=== PATIENT | female | born 1940 | race Caucasian/White ===

== ENCOUNTER → 2022-04-14 | Outpatient (CLI) | payer MEDICARE, BC, SELFPAY ==
[2022-04-14 14:56] LABS: Absolute Lymphocyte Count 1.03 X10^3/uL (0.83-4.51); Absolute Neutrophil Count 3.1 X10^3/uL (2.0-7.7); Basophil# 0.05 X10^3/uL; Eosinophil# 0.27 X10^3/uL; Eosinophils% 5.2 % (0-5); Hematocrit 45.4 % (37-47); Hemoglobin 14.3 g/dL (12.0-15.0); Lymphocyte # 1.03 X10^3/ul (0.83-4.51); Mean Corp Hgb Conc 31.5 g/dL (32-36); Mean Corpuscular Volume 92.1 fL (81-99); Mean Platelet Vol. 9.4 fl (6.2-12.0); Monocyte# 0.68 X10^3/uL; Monocyte% 13.2 % (0-10); NRBC Flagged by Analyzer 0 % (0-5); Neutrophil # 3.11 X10^3/uL (2.7-7.7); Neutrophil % 60.2 % (47-70); Platelet Count 244 K/mm3 (150-450); RBC Distribution Width CV 18.3 % (11.6-14.6); RBC Distribution Width SD 61.5 fl (35.1-43.9); Red Blood Count 4.93 M/mm3 (4.2-5.4); White Blood Count 5.2 K/mm3 (4.4-11.0)
[2022-04-14 15:18] LABS: AST(SGOT) 13 U/L (15-37); Alanine Aminotransfer ALT/SGPT 17 U/L (13-56); Albumin, Serum 3.6 g/dL (3.2-5.0); Alkaline Phosphatase 89 U/L (45-117); Anion Gap 4 (5-15); BUN 16 mg/dL (7-18); BUN/Creat Ratio 15.5 RATIO (10-20); Calcium,Total 9.2 mg/dL (8.5-10.1); Chloride 110 mmol/L (98-107); Cholesterol 253 mg/dL (200); Creatinine, Serum 1.03 mg/dL (0.55-1.02); EST Glomerular Filtration Rate 55 mL/min (>60); Est Glom Filt Rate - Afr Amer 66 mL/min (>60); Globulin 3.5 g/dL (2.2-4.2); Glucose 102 mg/dL (74-106); High Density Lipoprotein 57 mg/dL; Potassium 4.3 mmol/L (3.5-5.1); Protein, Total 7.1 g/dL (6.4-8.2); Sodium Level 140 mmol/L (136-145); Triglycerides 245 mg/dL; Very Low Density Lipoprotein 49 mg/dL (5-40)
== END | disposition home or self-care (01) ==
LOC: BIMLAB 14:00
PROVIDERS: PCP Internal Medicine; Referring Provider Internal Medicine; Visit Provider Internal Medicine
DX: I10 Essential (primary) hypertension (principal)
CPT/HCPCS: 36415; 80053; 80061; 85025

== ENCOUNTER 2022-08-17 09:12 | Inpatient (IN) | payer MEDICARE, BC, SELFPAY ==
[2022-08-17] VITALS (11 sets, daily range): BP systolic 106–147; BP diastolic 54–79; PULSE 69–92; RESP 16–18; TEMP 36.4–37.2; O2SAT 90–97; BMI 36.8
--- NOTE | 2022-08-17 09:31 | EDS_ITS ---
HPI HPI - GI History of Present Illness Chief Complaint: Abd Pain Informant: patient Abdominal Pain/Flank Pain Onset: Yesterday Context: Sudden Onset Timing: Intermittent Quality: Cramping Location: Epigastric and LUQ Worsened by: Nothing Relieved by: Nothing Nausea/Vomiting/Emesis GI Symptom: Positive for Nausea and Vomiting Quality: Positive for Nonbilious; Negative for Blood streaks, Coffee ground or Hematemesis Diarrhea/Melena/Hematochezia GI Symptom: Negative for Diarrhea, Melena or Hematochezia Associated Symptoms Associated Symptoms: Negative for Dysuria, Frequency or Hematuria Narrative Narrative: Patient presents with abdominal pain that began last night. Patient states it began rather suddenly. Patient states that it does come and go. Patient describes it as cramping. Patient states it is mostly over the epigastric and left upper quadrant areas. Patient states nothing makes it better nothing makes it worse. Patient admits to some nausea and vomiting. Patient states her emesis was just stomach contents. Patient denies any hematemesis or coffee- ground emesis. Patient denies any diarrhea, melena, or hematochezia. Patient denies any dysuria, hematuria, or frequency. [facility] Medical History Bilateral lower extremity edema Debility Health care maintenance History of aneurysm History of COVID-19 History of pneumonia History of skin cancer History of uterine cancer Hypertension Home Medications Handicap Placard #1 ea 04/14/22 [Rx Last Taken Unknown] amlodipine 5 mg tablet 5 mg PO DAILY blood pressure 08/17/22 [History Last Taken 08/16/22] ascorbic acid (vitamin C) 500 mg tablet (Vitamin C) 500 mg PO QODAY supplement 08/17/22 [History Last Taken 08/16/22] multivitamin 1 tab PO DAILY health maintenance 08/17/22 [History Last Taken 08/16/22] zinc sulfate 50 mg zinc (220 mg) tablet 50 mg PO QODAY supplement 08/17/22 [History Last Taken 08/16/22] Allergy/AdvReac Type Severity Reaction Status Date / Time rosuvastatin [From Crestor] Allergy Severe stomach Verified 08/17/22 09:13 pains shellfish derived Allergy Severe MOUTH SORES Verified 08/17/22 09:13 sulfamethoxazole Allergy Unknown unknown Verified 08/17/22 09:13 [From Bactrim] trimethoprim [From Bactrim] Allergy Unknown unknown Verified 08/17/22 09:13 Family History Son Alcoholism Grandmother No problems noted. Mother Heart disease Hypertension CVA (cerebral vascular accident) Father Cancer throat Surgical History History of hysterectomy Hx of endovascular stent graft for abdominal aortic aneurysm Social History Smoking Status: Never smoker alcohol intake: never substance use type: does not use what type of physical activity do you participate in: walking and aerobics ROS ROS ED Constitutional Constitutional ED: Denies chills or fever(s) Eyes Eyes: Denies blurry vision or change in vision ENT ENT ED: Denies rhinorrhea or sore throat Cardiovascular Cardiovascular: Denies chest pain or palpitations Respiratory/Chest Respiratory/Chest: Denies cough or dyspnea Gastrointestinal Gastrointestinal: Reports abdominal pain, nausea and vomiting; Denies diarrhea or melena Genitourinary Genitourinary ED: Denies dysuria or hematuria Musculoskeletal Musculoskeletal: Reports back pain; Denies neck pain Integumentary Reports rash; Denies abscess Neurologic Neurologic: Denies headache(s) or weakness Allergic/Immunologic Allergic/Immunologic ED: Denies mouth swelling or urticaria EXAM Physical Exam Const Vital Signs: 08/17/22 09:14 08/17/22 11:25 08/17/22 15:53 Temperature 97.9 F 97.8 F Temperature Source Temporal Temporal Pulse Rate 78 72 79 Respiratory Rate 17 16 16 Blood Pressure 125/65 H 147/60 H 147/69 H Blood Pressure Mean 85 89 95 Blood Pressure Source Pulse Ox 92 91 90 Oxygen Delivery Method Room Air Room Air Room Air 08/17/22 15:53 08/17/22 15:55 Temperature 97.8 F 97.8 F Temperature Source Temporal Temporal Pulse Rate 69 69 Respiratory Rate 16 16 Blood Pressure 147/69 H 147/69 H Blood Pressure Mean 95 95 Blood Pressure Source Monitor Pulse Ox 90 90 Oxygen Delivery Method Room Air Room Air Positive well nourished, well developed and obese General Appearance ED: well developed and NAD Nutritional Appearance: obese HEENT Reports moist mucous membranes Neck supple and no JVD Resp normal respiratory effort and clear to auscultation bilaterally Cardio regular rate, regular rhythm and no murmurs GI normal to inspection, nondistended, normoactive bowel sounds Palpation: soft and tender epigastric and LUQ; Negative for guarding or rebound tenderness present Extremity normal to inspection General Extremety ED: Negative for edema or tenderness General Extremity: Negative for edema Neuro oriented x3, CN's II-XII intact bilaterally and no sensory deficits noted Sensorium / Orientation: alert Motor Exam: strength 5/5 throughout Psych mental status grossly normal Skin no rashes or lesions noted MDM MDM MDM Narrative Medical decision making narrative: Patient was given IV fluids, morphine, and Zofran. CBC was within normal limits. Comprehensive metabolic profile showed a slightly elevated creatinine of 1.10 and a BUN of 20. Alkaline phosphatase was slightly elevated to 31. Lipase was normal. Urinalysis shows a leukocyte esterases of 100 with 5-10 white blood cells but 10-25 squamous epithelial cells. There is 4+ bacteria. This is most likely from contamination. CT scan of the abdomen pelvis was obtained. There is a ventral hernia containing colon and small bowel. There is evidence of early bowel obstruction. There are multiple gallstones noted. This was interpreted by the radiologist and reviewed by myself. I attempted to reduce the ventral hernia. It felt as though some of the bowel was reduced. I went back into reevaluate the patient later and she was still having some pain and there is still hernia noted. Case was discussed with Dr. Enciso. He was in to evaluate the patient and will take the patient to the operating room. He recommended obtaining an EKG and giving the patient a dose of Zosyn. These were ordered. EKG shows a normal sinus rhythm with a rate of 82. [place] interval, QRS interval, and QTc intervals are within normal limits. There is borderline left axis deviation at -20. There are no acute ST or T wave changes noted. Patient understands and is agreeable with the plan. All questions were answered. Lab Data Attestation: I reviewed the patient's lab results. Labs: Laboratory Results - last 24 hr 08/17/22 08/17/22 08/17/22 09:45 09:45 10:30 WBC 9.3 RBC 4.90 Hgb 15.2 H Hct 46.6 MCV 95.1 MCH 31.0 MCHC 32.6 RDW Std Deviation 58.2 H RDW Coeff of Toribio 16.6 H Plt Count 213 MPV 8.9 Immature Gran % (Auto) 0.500 Neut % (Auto) 79.8 H Lymph % (Auto) 8.9 L [place] % (Auto) 8.7 Eos % (Auto) 1.8 Baso % (Auto) 0.3 Absolute Neuts (auto) 7.4 Absolute Lymphs (auto) 0.83 Nucleated RBC % 0 Sodium 141 Potassium 4.4 Chloride 108 H Carbon Dioxide 28.0 Anion Gap 5 BUN 20 H Creatinine 1.10 H Estim Creat Clear Calc 35.22 Est GFR (MDRD) Af Amer 61 Est GFR (MDRD) Non-Af 51 L BUN/Creatinine Ratio 18.2 Glucose 118 H Calcium 9.5 Total Bilirubin 0.80 AST 25 ALT 34 Alkaline Phosphatase 231 H Total Protein 7.1 Albumin 3.2 Globulin 3.9 Albumin/Globulin Ratio 0.8 L Lipase 136 Urine Color Yellow Urine Clarity Sl. Cloudy Urine pH 7.0 Ur Specific [place] 1.010 Urine Protein Negative Urine Glucose (UA) Normal Urine Ketones Negative Urine Occult Blood Negative Urine Nitrite Negative Urine Bilirubin Negative Urine Urobilinogen 1 H Ur Leukocyte Esterase 100 H Urine RBC 0 SEEN Urine WBC 5-10 SEEN Ur Squamous Epith Cells 10-25 SEEN Urine Bacteria 4+ Urine Mucus 0 SEEN Radiography Diagnostic Testing: Clinical Impression(s) from Imaging Studies Abdomen/Pelvis CT 08/17/22 11:35 IMPRESSION: Large anterior ventral hernia containing colon as well as small bowel loops. There is evidence of small bowel dilatation proximally to the level of the hernia in keeping with a small bowel obstruction. Multiple gallstones. Electronically Signed: Damian Knight MD at 12:30 EDT , EKG Initial EKG: Attestation: I personally reviewed and interpreted this EKG as follows: Interpretation: Sinus Rhythm (82) and No Acute Injury Pattern Prior EKG tracings: not available for review Prior: No Prior Critical Care Time Critical Care Time: Yes Critical care time (excluding procedures): 30-74 minutes (33), Including time spent:, Discussing w/Patient &/or Family/Tallow Maker, Discussing w/Consultants, Arranging Admission or Transfer and Performing Direct Patient Care at Bedside Discharge Plan Disposition Disposition: Acute Care Hospital [facility] Discharge Date/Time: 08/17/22 16:00
[2022-08-17] MEDS: Ondansetron 4 MG/2 ML Vial IV (09:47)
[2022-08-17] MEDS: 0.9% Normal Saline 1,000 ML 1000 ML IV (09:47)
[2022-08-17] MEDS: Morphine 4 MG/ML Syringe IV (09:47)
[2022-08-17 09:59] LABS: Absolute Lymphocyte Count 0.83 X10^3/uL (0.83-4.51); Absolute Neutrophil Count 7.4 X10^3/uL (2.0-7.7); Basophil# 0.03 X10^3/uL; Basophil% 0.3 % (0-1); Eosinophil# 0.17 X10^3/uL; Eosinophils% 1.8 % (0-5); Hematocrit 46.6 % (37-47); Hemoglobin 15.2 g/dL (12.0-15.0); Lymphocyte # 0.83 X10^3/ul (0.83-4.51); Lymphocyte % 8.9 % (19-41); Mean Corp Hgb Conc 32.6 g/dL (32-36); Mean Corpuscular Volume 95.1 fL (81-99); Mean Platelet Vol. 8.9 fl (6.2-12.0); Monocyte# 0.81 X10^3/uL; Monocyte% 8.7 % (0-10); NRBC Flagged by Analyzer 0 % (0-5); Neutrophil # 7.43 X10^3/uL (2.7-7.7); Neutrophil % 79.8 % (47-70); Platelet Count 213 K/mm3 (150-450); RBC Distribution Width CV 16.6 % (11.6-14.6); RBC Distribution Width SD 58.2 fl (35.1-43.9); White Blood Count 9.3 K/mm3 (4.4-11.0)
[2022-08-17 10:23] LABS: ALB/GLOB Ratio 0.8 RATIO (0.9-2.4); AST(SGOT) 25 U/L (15-37); Alanine Aminotransfer ALT/SGPT 34 U/L (13-56); Albumin, Serum 3.2 g/dL (3.2-5.0); Alkaline Phosphatase 231 U/L (45-117); Anion Gap 5 (5-15); BUN 20 mg/dL (7-18); BUN/Creat Ratio 18.2 RATIO (10-20); Calcium,Total 9.5 mg/dL (8.5-10.1); Chloride 108 mmol/L (98-107); EST Glomerular Filtration Rate 51 mL/min (>60); Est Glom Filt Rate - Afr Amer 61 mL/min (>60); Estimated Creatinine Clearance 35.22 ml/min; Globulin 3.9 g/dL (2.2-4.2); Glucose 118 mg/dL (74-106); Lipase 136 U/L (73-393); Potassium 4.4 mmol/L (3.5-5.1); Protein, Total 7.1 g/dL (6.4-8.2); Sodium Level 141 mmol/L (136-145)
[2022-08-17 10:37] LABS: Mucous, Urine 0 SEEN /hpf (<or=2+); Red Blood Cells-Urine 0 SEEN /hpf (0-5)
[2022-08-17 10:53] LABS: Color, Urine Yellow (Yellow); Glucose, Dipstick Normal (Normal); Ketone-Dipstick Negative (Negative); Leukocyte Esterase-Dipstick 100 /ul (Negative); Nitrite-Dipstick Negative (Negative); Occult Blood-Urine Negative /ul (Negative); Protein-Dipstick Negative (Negative); Urine Bilirubin Dipstick Negative (Negative); Urine Clarity Sl. Cloudy (Clear); Urine Urobilinogen 1 mg/dl (Normal)
[2022-08-17 11:03] LABS: White Blood Cells 5-10 SEEN /hpf (0-5)
[2022-08-17 11:04] LABS: Bacteria 4+ /hpf (None Seen); Squamous Epithelial Cells - UA 10-25 SEEN /hpf (5-10)
--- NOTE | 2022-08-17 11:35 | CT_ITS ---
STUDY: CT ABDOMEN AND PELVIS WITH CONTRAST REASON FOR EXAM: Female, 82 years old. Nausea and vomiting. History of uterine cancer. Abdominal pain -- IV PO Contrast RADIATION DOSAGE (If Supplied By Facility): CTDIvol = ( 15.59 ) mGy, DLP = ( 1091.59 ) mGycm TECHNIQUE: Transaxial images were obtained from the dome of the diaphragm to the symphysis pubis without oral contrast. Oral and amp; IV Gastrografin and amp; 100mL Isovue-300 was administered. Sagittal and coronal images were reconstructed. Individualized dose optimization techniques were used for this CT. COMPARISON: None. FINDINGS: There are increased linear markings at the lung bases with areas of confluence in the right middle lobe and lingular segment of the left upper lobe. This may represent atelectasis superimposed on scarring. The visualized portions of the heart are within normal limits. Normal liver. There are multiple gallstones. There are multiple benign calcified granulomata of the spleen. Normal pancreas. Normal bilateral adrenal glands. There are small bilateral renal cysts. There is a small hiatal hernia. There is evidence of a dilatation of the jejunal small bowel loops proximal to the large anterior ventral hernia. Small bowel obstruction to the level of the hernia should be ruled out. There are multiple colonic diverticula consistent with diverticulosis. There is non-visualization of the appendix. There is diffuse atherosclerotic calcification of the abdominal aorta. Endoluminal stent graft is seen in the abdominal aorta just distal to the renal arteries and proximal portions of both common iliac arteries. The [place] abdominal aorta has a transverse dimension of 5.6 cm. Normal inferior vena cava. Normal retroperitoneum. Normal urinary bladder. Surgical clips are seen in the right and left groins most likely secondary to prior vascular surgery. There is absence of the uterus consistent with a prior hysterectomy. There is a large ventral hernia containing nondilated portion of the transverse colon and small bowel loops. The neck of the hernia measures 4.3 cm x 3.4 cm.. There are diffuse degenerative changes of the visualized lumbar spine. Increased lordosis. CT/Abdomen/Pelvis WITH Contrast IMPRESSION: Large anterior ventral hernia containing colon as well as small bowel loops. There is evidence of small bowel dilatation proximally to the level of the hernia in keeping with a small bowel obstruction. Multiple gallstones. Electronically Signed: Damian Knight MD at 12:30 EDT ,
--- NOTE | 2022-08-17 15:14 | EKG12_ITS ---
Test Reason : PRE-OP Blood Pressure : / mmHG Vent. Rate : 082 BPM Atrial Rate : 082 BPM P-R Int : 158 ms QRS Dur : 094 ms QT Int : 396 ms P-R-T Axes : 052 -20 064 degrees QTc Int : 462 ms Normal sinus rhythm Low voltage QRS Borderline ECG Confirmed by ELENITA SHELTON, DAVE ([id number]), editorial clerk EMELINA CORREA ([id number]) on 08/18/2022 9:14:30 AM Referred By: MARBIN Confirmed By:DAVE KWONG MD
--- NOTE | 2022-08-17 15:19 | EX.PCM.CON.S ---
Assessment & Plan Assessment/Plan (1) Incarcerated incisional hernia: PLAN: My plan is to take her to surgery and repair her incarcerated incisional hernia. It is unlikely that I will be able to put mesh in due to translocation of bacteria I am hoping that we will not have to do any bowel resection. Patient understands that there is a better than 50% chance that this hernia could recur. I have counseled the patient as to the risks of the procedure, including but not limited to: infection, bleeding, injury to any blood vessels/nerves, injury to any bowel/bladder, injury to any intraabdominal organs such as the liver/spleen, perforation of the GI tract, intraabdominal abscess/bleeding, incisional hernias, injury to the common bile duct/biliary ducts, injury to the spermatic cord/vessels/testicles, recurrence of hernia(s), complications of anesthesia, etc. The patient verbalizes understanding. I have spoke with her and her daughter and reviewed the risk and benefits. HPI Consult Data Date of Consult: 08/17/22 HPI Narrative HPI Narrative: ELA JOHNSON, is a 82 F who presents with abdominal pain that began last night.? Patient states it began rather suddenly.? Patient states that it does come and go.? Patient describes it as cramping.? Patient states it is mostly over the epigastric and left upper quadrant areas.? Patient states nothing makes it better nothing makes it worse.? Patient admits to some nausea and vomiting.? Patient states her emesis was just stomach contents.? Patient denies any hematemesis or coffee-ground emesis.? Patient denies any diarrhea, melena, or hematochezia.? Patient denies any dysuria, hematuria, or frequency. CT scan : Large anterior ventral hernia containing colon as well as small bowel loops.? There is evidence of? small bowel dilatation proximally to the level of the hernia in keeping with a small bowel obstruction. Multiple gallstones. [facility] Medical History Bilateral lower extremity edema Debility Health care maintenance History of aneurysm History of COVID-19 History of pneumonia History of skin cancer History of uterine cancer Hypertension Home Medications Handicap Placard #1 ea 04/14/22 [Rx Last Taken Unknown] amlodipine 5 mg tablet 5 mg PO DAILY blood pressure 08/17/22 [History Last Taken 08/16/22] ascorbic acid (vitamin C) 500 mg tablet (Vitamin C) 500 mg PO QODAY supplement 08/17/22 [History Last Taken 08/16/22] multivitamin 1 tab PO DAILY health maintenance 08/17/22 [History Last Taken 08/16/22] zinc sulfate 50 mg zinc (220 mg) tablet 50 mg PO QODAY supplement 08/17/22 [History Last Taken 08/16/22] Allergy/AdvReac Type Severity Reaction Status Date / Time rosuvastatin [From Crestor] Allergy Severe stomach Verified 08/17/22 09:13 pains shellfish derived Allergy Severe MOUTH SORES Verified 08/17/22 09:13 sulfamethoxazole Allergy Unknown unknown Verified 08/17/22 09:13 [From Bactrim] trimethoprim [From Bactrim] Allergy Unknown unknown Verified 08/17/22 09:13 Family History Son Alcoholism Grandmother No problems noted. Mother Heart disease Hypertension CVA (cerebral vascular accident) Father Cancer throat Surgical History History of hysterectomy Hx of endovascular stent graft for abdominal aortic aneurysm Social History Smoking Status: Never smoker alcohol intake: never substance use type: does not use what type of physical activity do you participate in: walking and aerobics ROS Constitutional Constitutional: Denies chills or fever(s) Eyes Eyes: Denies change in vision ENT HEENT: Denies abnormal hearing Cardiovascular Cardiovascular: Denies chest pain Respiratory/Chest Respiratory/Chest: Denies cough, dyspnea or productive cough Gastrointestinal Gastrointestinal: Reports abdominal pain, nausea and vomiting; Denies coffee ground emesis or diarrhea Genitourinary Genitourinary: Denies change in urinary stream Musculoskeletal Musculoskeletal: Reports back pain Physical Exam Const alert and oriented x3 Nutritional Appearance: obese HEENT normocephalic and head/scalp atraumatic Eyes PERRL and EOMs intact bilaterally Resp clear to auscultation bilaterally Cardio Rate: regular rate Rhythm: regular rhythm GI soft to palpation Auscultation: hypoactive bowel sounds Palpation: tender other (Along her incarcerated incisional hernia) Lab / Micro Data Result Diagrams: 08/17/22 09:45 08/17/22 09:45 Labs: Laboratory Results - last 24 hr 08/17/22 09:45: WBC 9.3, RBC 4.90, Hgb 15.2 H, Hct 46.6, MCV 95.1, MCH 31.0, MCHC 32.6, RDW Std Deviation 58.2 H, RDW Coeff of Toribio 16.6 H, Plt Count 213, MPV 8.9, Immature Gran % (Auto) 0.500, Neut % (Auto) 79.8 H, Lymph % (Auto) 8.9 L, [place] % (Auto) 8.7, Eos % (Auto) 1.8, Baso % (Auto) 0.3, Absolute Neuts (auto) 7.4, Absolute Lymphs (auto) 0.83, Nucleated RBC % 0 08/17/22 09:45: Sodium 141, Potassium 4.4, Chloride 108 H, Carbon Dioxide 28.0, Anion Gap 5, BUN 20 H, Creatinine 1.10 H, Estim Creat Clear Calc 35.22, Est GFR (MDRD) Af Amer 61, Est GFR (MDRD) Non-Af 51 L, BUN/Creatinine Ratio 18.2, Glucose 118 H, Calcium 9.5, Total Bilirubin 0.80, AST 25, ALT 34, Alkaline Phosphatase 231 H, Total Protein 7.1, Albumin 3.2, Globulin 3.9, Albumin/Globulin Ratio 0.8 L, Lipase 136 08/17/22 10:30: Urine Color Yellow, Urine Clarity Sl. Cloudy, Urine pH 7.0, Ur Specific [place] 1.010, Urine Protein Negative, Urine Glucose (UA) Normal, Urine Ketones Negative, Urine Occult Blood Negative, Urine Nitrite Negative, Urine Bilirubin Negative, Urine Urobilinogen 1 H, Ur Leukocyte Esterase 100 H, Urine RBC 0 SEEN, Urine WBC 5-10 SEEN, Ur Squamous Epith Cells 10-25 SEEN, Urine Bacteria 4+, Urine Mucus 0 SEEN Radiology Impression Abdomen/Pelvis CT 08/17/22 11:35 IMPRESSION: Large anterior ventral hernia containing colon as well as small bowel loops. There is evidence of small bowel dilatation proximally to the level of the hernia in keeping with a small bowel obstruction. Multiple gallstones. Electronically Signed: Damian Knight MD at 12:30 EDT ,
--- NOTE | 2022-08-17 15:36 | NURSING ---
NO OLD EKGS
--- NOTE | 2022-08-17 15:39 | NURSING ---
SURGERY JOSEPH INCARCERATED VENTRAL HERNIA, SBO
--- NOTE | 2022-08-17 16:00 | ED.RN ---
Report given to AC nurse, Malcolm RN taking pt. down to PACU.
--- NOTE | 2022-08-17 16:15 | HERN_PTH ---
PATIENT: ELA JOHNSON LOC: MS3 U#:[id number] AGE/SX: 82/F ROOM: MS321 RE08/17/[address]: Dr. Mendez Enciso MD : [id number] BED: 1 DIS: 08/24/2022 SPEC #: [id number] RECD: 08/18/22 14:54 STATUS: TAMAR TSANG #: [id number] MANDA: 08/17/22 16:[address]: Mendez Enciso DEPT: SURGICAL PATHOLOGY RECD BY: Danii Saunders ENTERED: 08/19/22 09:19 SP TYPE: Hernia OTHR DR: Dr. Mio Juarez MD Tissues: HERNIA Procedures: Surgery Specimen Level II HEADER OPERATION: Incarcerated incisional hernia repair PRE-OP DIAGNOSIS: Incarcerated incisional hernia TISSUE SUBMITTED: Hernia sac MICROSCOPIC DIAGNOSIS Hernia sac: A piece of fibroadipose and fibroconnective tissue consistent with hernia sac. SJ:jagjit 08/20/2022 MICROSCOPIC DESCRIPTION Slides are reviewed. GROSS DESCRIPTION Received in fixative is one container labeled with the patient's name and designated hernia sac. The specimen consists of an irregular piece of soft tissue measuring 8.5 x 3 x 0.5 cm. No mass lesion is identified. Manager Of Maintenance sections are submitted in one cassette. / CINDY:jagjit 08/19/2022 TC:5 CPT: 49700
[2022-08-17] MEDS: BUPIVACAINE LIPOSOME/PF 20 ML VIAL OPERA.SITE (18:50)
[2022-08-17] MEDS: 0.9% Normal Saline (Pres. free 10 ML Vial (18:50)
[2022-08-17] MEDS: Lactated Ringers 1,000 ML 15 ML IV (19:45)
--- NOTE | 2022-08-17 19:46 | OP.PCM_ITS ---
Problems Associated Problem List Diagnoses (1) Incarcerated incisional hernia: Report of Operation Date of Procedure: 08/17/22 Pre-Operative Diagnosis: Incarcerated incisional hernia Post-Operative Diagnosis: Same Surgery/Procedure Performed:: Reduction and repair of incarcerated incisional hernia Surgeon: Mendez Enciso customer operations specialist: Jia Ventura Type of Anesthesia: General Anesthesiologist: Lawrence Rose Drains: 15 round Jamil-Hernandez Estimated Blood Loss (mL): 50 cc Description of Procedure: Patient was supine position on the OR table under excellent general anesthetic a Villalta catheter was placed abdomen was sterilely prepped and draped in the usual fashion. I opened her previous midline incision she had a rather large incisional hernia originating at the umbilicus and extending laterally. In addition to that superior to the umbilicus she had another incisional hernia. I dissected around the hernia sac. Opened it bowel was viable the fluid looks serous it did not look turbid but I could not help think that there was still s ome possibly translocation of bacteria.. I thought the best thing to do since he had viable bowel was just connect the 2 hernias and reduce the intestines back into the abdominal cavity which was easily done. I circumferentially dissected around the fascia. Any bleeding was controlled with electrocautery. Since we do not have biological mesh I was forced to bring this wound together it did come together but it was under some slight bit of tension in the central part of it. The fascia was brought together with interrupted #1 Nurolon's. I placed a 15 round Jamil-Hernandez drain into the cavity that was left behind from the hernia. This was sutured in place with a 3-0 nylon. I injected Exparel along the fascial edges. The wound was then closed in layers deep dermal layer of 3-0 Vicryl's interrupted then a running 4-0 Monocryl. Patient tolerated the procedure well. Admit VTE Documentation VTE Present on Admission: No VTE Mechan Device Prophylaxis: SCD's VTE Pharm Prophylaxis ordered?: No Reason prophylaxis not ordered:: Treatment Not Indicated
[2022-08-17] MEDS: 0.9% Normal Saline 1,000 ML 75 ML IV (21:59)
[2022-08-18] VITALS (10 sets, daily range): BP systolic 103–119; BP diastolic 53–65; PULSE 66–81; RESP 16–18; TEMP 36.4–37.4; O2SAT 93–96
[2022-08-18] MEDS: Nystatin Ointment 1 APPLIC TOPICAL ×3 (05:21→21:15)
[2022-08-18] MEDS: oxyCODONE 5 MG Tablet PO (05:22)
[2022-08-18 05:46] LABS: Absolute Lymphocyte Count 0.67 X10^3/uL (0.83-4.51); Absolute Neutrophil Count 5.7 X10^3/uL (2.0-7.7); Basophil# 0.02 X10^3/uL; Basophil% 0.3 % (0-1); Eosinophil# 0.09 X10^3/uL; Eosinophils% 1.2 % (0-5); Hematocrit 43.1 % (37-47); Hemoglobin 13.5 g/dL (12.0-15.0); Lymphocyte # 0.67 X10^3/ul (0.83-4.51); Lymphocyte % 9.3 % (19-41); Mean Corp Hgb Conc 31.3 g/dL (32-36); Mean Corpuscular Hgb 30.2 pg (27.0-32.0); Mean Corpuscular Volume 96.4 fL (81-99); Mean Platelet Vol. 10.5 fl (6.2-12.0); Monocyte# 0.68 X10^3/uL; Monocyte% 9.4 % (0-10); NRBC Flagged by Analyzer 0 % (0-5); Neutrophil # 5.73 X10^3/uL (2.7-7.7); Neutrophil % 79.5 % (47-70); POSITIVE COUNT YES; Platelet Count 148 K/mm3 (150-450); RBC Distribution Width CV 16.8 % (11.6-14.6); RBC Distribution Width SD 59.7 fl (35.1-43.9); Red Blood Count 4.47 M/mm3 (4.2-5.4); White Blood Count 7.2 K/mm3 (4.4-11.0)
[2022-08-18 06:10] LABS: Anion Gap 5 (5-15); BUN 13 mg/dL (7-18); BUN/Creat Ratio 13.1 RATIO (10-20); Calcium,Total 8.3 mg/dL (8.5-10.1); Chloride 112 mmol/L (98-107); Creatinine, Serum 0.99 mg/dL (0.55-1.02); EST Glomerular Filtration Rate 57 mL/min (>60); Est Glom Filt Rate - Afr Amer 69 mL/min (>60); Estimated Creatinine Clearance 39.14 ml/min; Glucose 102 mg/dL (74-106); Sodium Level 142 mmol/L (136-145)
[2022-08-18 06:13] LABS: Differential Indicated SCAN CRITERIA MET
[2022-08-18 06:53] LABS: Differential Comment SCANNED
[2022-08-18 06:54] LABS: Platelet Estimate ADEQUATE (ADEQ)
[2022-08-18] MEDS: Docusate Sodium 100 MG Capsule PO (08:45)
[2022-08-18] MEDS: amLODIPine 5 MG Tablet PO (08:45)
--- NOTE | 2022-08-18 11:10 | PCM.PN.SRG ---
Subjective Subjective Patient feels very tired today. Her pain is being controlled with IV pain medication. She has had no flatus or bowel movements as of yet. Objective Data Objective Data Abdomen is soft dressings are dry. Vital Signs: Vital Signs Temp Pulse Resp BP Pulse Ox O2 Del Method O2 Flow Rate 98.4 F 78 18 117/61 93 Nasal Cannula 4 08/18/22 08:50 08/18/22 08:50 08/18/22 08:50 08/18/22 08:50 08/18/22 08:50 08/18/22 08:58 08/18/22 08:58 Oxygen Flow Rate (L/min) 4 Oxygen Delivery Method Nasal Cannula Weight: 214 lb 15.211 oz Body Mass Index (BMI) 36.8 Intake & Output: Intake and Output for Last 24 Hours 08/16/22 08/17/22 08/18/22 23:59 23:59 23:59 Intake Total 1200 / 1200 50 / 50 Output Total 323 / 423 565 / 565 Balance 877 / 777 -515 / -515 Lab / Micro Data Result Diagrams: 08/18/22 04:55 08/18/22 04:55 Labs: Laboratory Results - last 24 hr 08/18/22 04:55: WBC 7.2, RBC 4.47, Hgb 13.5, Hct 43.1, MCV 96.4, MCH 30.2, MCHC 31.3 L, RDW Std Deviation 59.7 H, RDW Coeff of Toribio 16.8 H, Plt Count 148 L, MPV 10.5, Immature Gran % (Auto) 0.300, Neut % (Auto) 79.5 H, Lymph % (Auto) 9.3 L, [place] % (Auto) 9.4, Eos % (Auto) 1.2, Baso % (Auto) 0.3, Absolute Neuts (auto) 5.7, Absolute Lymphs (auto) 0.67 L, Nucleated RBC % 0, Differential Comment SCANNED, Platelet Estimate ADEQUATE 08/18/22 04:55: Sodium 142, Potassium 4.0, Chloride 112 H, Carbon Dioxide 25.0, Anion Gap 5, BUN 13, Creatinine 0.99, Estim Creat Clear Calc 39.14, Est GFR (MDRD) Af Amer 69, Est GFR (MDRD) Non-Af 57 L, BUN/Creatinine Ratio 13.1, Glucose 102, Calcium 8.3 L Radiography Diagnostic Testing: Radiology Impression Abdomen/Pelvis CT 08/17/22 11:35 IMPRESSION: Large anterior ventral hernia containing colon as well as small bowel loops. There is evidence of small bowel dilatation proximally to the level of the hernia in keeping with a small bowel obstruction. Multiple gallstones. Electronically Signed: Damian Knight MD at 12:30 EDT , Assessment & Plan Assessment/Plan (1) Incarcerated incisional hernia: PLAN: Postoperative day #1. Await GI function. AYAAN with minimal fluid coming out of it.
--- NOTE | 2022-08-18 11:20 | CASEMGMT ---
RN CM Face to Face with patient for initial transition planning/care coordination assessment. RN CM introduced self and role at [facility]. Patient sitting in chair, alert and oriented. Patient willing to participate in assessment and is able to answer all questions appropriately. Care providers, pharmacy, and demographics verified. Patient wishes to discharge home, denies need for home health at this time. Patient states she has no further needs or concerns at this time. CM to follow for discharge planning needs that may arise. PCP: Ann Specialists: none Preferred Pharmacy: Emilio Suggs; [facility] retail at discharge Insurance: Vlad FLAHERTY Prescription Benefit: yes Living Will/HPOA: none LNOK: son, daughter Living Arrangements: Patient lives alone in a first floor apartment with 4 steps and railing to enter the home. Patient states she is independent at home. Transportation: daughter DME/HHC: Patient states she has grab bars and walker at home. No previous HHC or SNF. Patient is active with [facility] Disposition Plan: Patient to discharge home with family support and follow-up plans in place. Estella BRIDGES, RN, CM
[2022-08-18] MEDS: Acetaminophen 325 MG Tablet 650 MG PO ×2 (11:31→18:05)
[2022-08-19] VITALS (16 sets, daily range): BP systolic 101–132; BP diastolic 42–62; PULSE 63–78; RESP 16–22; TEMP 36.6–36.9; O2SAT 88–94
[2022-08-19] MEDS: Acetaminophen 325 MG Tablet 650 MG PO ×2 (03:43→23:45)
[2022-08-19] MEDS: 0.9% Normal Saline 1,000 ML 75 ML IV ×2 (05:24→23:37)
[2022-08-19] MEDS: Nystatin Ointment 1 APPLIC TOPICAL ×3 (06:13→20:52)
[2022-08-19 06:20] LABS: Absolute Lymphocyte Count 0.59 X10^3/uL (0.83-4.51); Absolute Neutrophil Count 4.1 X10^3/uL (2.0-7.7); Basophil# 0.02 X10^3/uL; Basophil% 0.4 % (0-1); Eosinophils% 3.5 % (0-5); Hematocrit 41.1 % (37-47); Hemoglobin 13.1 g/dL (12.0-15.0); Lymphocyte # 0.59 X10^3/ul (0.83-4.51); Lymphocyte % 10.4 % (19-41); Mean Corp Hgb Conc 31.9 g/dL (32-36); Mean Corpuscular Hgb 31.5 pg (27.0-32.0); Mean Corpuscular Volume 98.8 fL (81-99); Mean Platelet Vol. 9.5 fl (6.2-12.0); Monocyte# 0.75 X10^3/uL; Monocyte% 13.2 % (0-10); NRBC Flagged by Analyzer 0 % (0-5); POSITIVE DIFFERENTIAL YES; Platelet Count 153 K/mm3 (150-450); RBC Distribution Width CV 16.6 % (11.6-14.6); RBC Distribution Width SD 60.7 fl (35.1-43.9); Red Blood Count 4.16 M/mm3 (4.2-5.4); White Blood Count 5.7 K/mm3 (4.4-11.0)
[2022-08-19 06:25] LABS: Differential Indicated SCAN CRITERIA MET
[2022-08-19 06:44] LABS: Anion Gap 4 (5-15); BUN 13 mg/dL (7-18); BUN/Creat Ratio 13.5 RATIO (10-20); Calcium,Total 8.4 mg/dL (8.5-10.1); Chloride 110 mmol/L (98-107); Creatinine, Serum 0.96 mg/dL (0.55-1.02); EST Glomerular Filtration Rate 59 mL/min (>60); Est Glom Filt Rate - Afr Amer 72 mL/min (>60); Estimated Creatinine Clearance 40.36 ml/min; Glucose 123 mg/dL (74-106); Potassium 3.7 mmol/L (3.5-5.1); Sodium Level 141 mmol/L (136-145)
[2022-08-19 06:54] LABS: Differential Comment SCANNED
[2022-08-19] MEDS: oxyCODONE 5 MG Tablet PO (07:00)
[2022-08-19] MEDS: amLODIPine 5 MG Tablet PO (09:33)
[2022-08-19] MEDS: Docusate Sodium 100 MG Capsule PO (09:33)
--- NOTE | 2022-08-19 13:48 | PCM.PN.SRG ---
Subjective Subjective patient tolerating abdominal pain ambulating a little, seems less than 100 steps no flatus or BM yet she states that she is hungry Objective Data Objective Data Vital Signs: Vital Signs Temp Pulse Resp BP Pulse Ox O2 Del Method O2 Flow Rate 98.2 F 65 16 102/59 L 93 Nasal Cannula 4 08/19/22 11:09 08/19/22 11:09 08/19/22 11:09 08/19/22 11:09 08/19/22 11:09 08/19/22 11:09 08/19/22 11:09 Oxygen Flow Rate (L/min) 4 Oxygen Delivery Method Nasal Cannula Weight: 97.5 kg Body Mass Index (BMI) 36.8 Intake & Output: Intake and Output for Last 24 Hours 08/17/22 08/18/22 08/19/22 23:59 23:59 23:59 Intake Total 1200 / 1200 1927.50 / 1927.50 421.25 / 421.25 Output Total 323 / 423 1185 / 1370 630 / 630 Balance 877 / 777 742.50 / 557.50 -208.75 / -208.75 Lab / Micro Data Attestation: I reviewed the patient's lab results. Result Diagrams: 08/19/22 05:43 08/19/22 05:43 Labs: Laboratory Results - last 24 hr 08/19/22 05:43: WBC 5.7, RBC 4.16 L, Hgb 13.1, Hct 41.1, MCV 98.8, MCH 31.5, MCHC 31.9 L, RDW Std Deviation 60.7 H, RDW Coeff of Toribio 16.6 H, Plt Count 153, MPV 9.5, Immature Gran % (Auto) 0.500, Neut % (Auto) 72.0 H, Lymph % (Auto) 10.4 L, [place] % (Auto) 13.2 H, Eos % (Auto) 3.5, Baso % (Auto) 0.4, Absolute Neuts (auto) 4.1, Absolute Lymphs (auto) 0.59 L, Nucleated RBC % 0, Differential Comment SCANNED 08/19/22 05:43: Sodium 141, Potassium 3.7, Chloride 110 H, Carbon Dioxide 27.0, Anion Gap 4 L, BUN 13, Creatinine 0.96, Estim Creat Clear Calc 40.36, Est GFR (MDRD) Af Amer 72, Est GFR (MDRD) Non-Af 59 L, BUN/Creatinine Ratio 13.5, Glucose 123 H, Calcium 8.4 L Physical Exam Const alert and oriented x3 General Appearance: cooperative Neck supple Resp normal respiratory effort Effort and Inspection: able to speak in complete sentences GI GI Narrative: abdomen is soft and benign Dressing intact without seepage - no visible evidence of infection Assessment & Plan Assessment/Plan (1) Incarcerated incisional hernia: PLAN: Status post incarcerated incisional hernia repair Nurses state that patient has had low oxygen sats, will consult Internal Medicine for evaluation
--- NOTE | 2022-08-19 14:48 | CON.PCM.HO_ITS ---
Assessment & Plan Assessment/Plan (1) Respiratory failure with hypoxia: QUALIFIERS: Chronicity: acute Qualified Code(s): J96.01 - Acute respiratory failure with hypoxia PLAN: Patient is pulse ox dropped on 88% on 4 L. Suspect due to atelectasis given her extensive surgery that she underwent. Patient admits to using the incentive spirometer sparingly due to pain in her abdomen. Encouraged her to use it hourly while she is awake 10 times and also to increase activity as she is able and staff is available to help. Explained to her that as her abdominal pain improves at her ability to use incentive spirometer inability to get up will improve as well. I have ordered a chest x-ray to rule out any other acute process. (2) Incarcerated incisional hernia: PLAN: Status post reduction and repair on the . On clear liquid diet Management per general surgery On piperacillin/tazobactam Patient has been using the oxycodone sparingly. Encouraged her to take more if it is impeding her ability to use incentive spirometer or engage with activity. (3) Headache: PLAN: Tension type versus migraine versus caffeine withdrawal Patient does drink caffeinated tea daily. Have advised nursing to give her a cup today to see if that would help. I told the patient I would not recommend any narcotics for her headache instead to use acetaminophen. I will feel any imaging studies is necessary at this time unless her condition changes. PLAN: Plan Chronic conditions * Hypertension: Stable. Continue with amlodipine. VTE prophylaxis: SCDs been ordered. Thank you for the consult. The hospital service will follow along during this patient's hospitalization. HPI Consult Data Date of Consult: 08/19/22 HPI Narrative Reason for Consultation: Consult requested for hypoxia HPI Narrative: ELA JOHNSON, is a 82 F who presents who presents with an incarcerated hernia. Patient underwent a reduction and repair of the incarcerated incisional hernia. Since then, the patient has had continued hypoactive bowel sounds and no significant return of bowel function. Patient has been on oxygen during the entire encounter, however she was down to 4 L today but has gone up to 5L as her oxygenation dropped down to 88% on 4 L. Patient denies any shortness of breath. She does state that she is coughing up some phlegm, however. Patient has been using the incentive spirometer sparingly saying that she is trying. [facility] Medical History Bilateral lower extremity edema Debility Health care maintenance History of aneurysm History of COVID-19 History of pneumonia History of skin cancer History of uterine cancer Hypertension Home Medications Handicap Placamelia #1 ea 04/14/22 [Rx Last Taken Unknown] amlodipine 5 mg tablet 5 mg PO DAILY blood pressure 08/17/22 [History Last Taken 08/16/22] ascorbic acid (vitamin C) 500 mg tablet (Vitamin C) 500 mg PO QODAY supplement 08/17/22 [History Last Taken 08/16/22] multivitamin 1 tab PO DAILY health maintenance 08/17/22 [History Last Taken 08/16/22] zinc sulfate 50 mg zinc (220 mg) tablet 50 mg PO QODAY supplement 08/17/22 [History Last Taken 08/16/22] Allergy/AdvReac Type Severity Reaction Status Date / Time rosuvastatin [From Crestor] Allergy Severe stomach Verified 08/17/22 09:13 pains shellfish derived Allergy Severe MOUTH SORES Verified 08/17/22 09:13 sulfamethoxazole Allergy Unknown unknown Verified 08/17/22 09:13 [From Bactrim] trimethoprim [From Bactrim] Allergy Unknown unknown Verified 08/17/22 09:13 Family History Son Alcoholism Grandmother No problems noted. Mother Heart disease Hypertension CVA (cerebral vascular accident) Father Cancer throat Surgical History History of hysterectomy Hx of endovascular stent graft for abdominal aortic aneurysm Social History Smoking Status: Never smoker alcohol intake: never substance use type: does not use what type of physical activity do you participate in: walking and aerobics ROS ROS Narrative Abdominal pain post surgery that waxes and wanes. Does complain of a headache that begins in her neck and radiates to her front scalp. All review of systems were negative except as mentioned above in the history of present illness and the other review of systems. Physical Exam Const Constitutional Narrative: Up in chair. She awake and alert. Nontoxic-appearing. No respiratory distress nor any conversational dyspnea. HEENT normocephalic and head/scalp atraumatic Resp normal respiratory effort, no retractions, no use of accessory muscles and clear to auscultation bilaterally Cardio regular rate, regular rhythm, S1 normal heart sound and S2 normal heart sound GI GI Narrative: Slight distention. Diffusely tender. Abdominal binder in place. Patient does have a long vertical incision along her abdomen. It was dressed, that was not removed during this encounter. Extremity normal to inspection and no clubbing, cyanosis or edema Neuro Sensorium / Orientation: awake and alert Psych affect normal Lab / Micro Data Result Diagrams: 08/19/22 05:43 08/19/22 05:43 Labs: Laboratory Results - last 24 hr 08/19/22 05:43: WBC 5.7, RBC 4.16 L, Hgb 13.1, Hct 41.1, MCV 98.8, MCH 31.5, MCHC 31.9 L, RDW Std Deviation 60.7 H, RDW Coeff of Toribio 16.6 H, Plt Count 153, MPV 9.5, Immature Gran % (Auto) 0.500, Neut % (Auto) 72.0 H, Lymph % (Auto) 10.4 L, [place] % (Auto) 13.2 H, Eos % (Auto) 3.5, Baso % (Auto) 0.4, Absolute Neuts (auto) 4.1, Absolute Lymphs (auto) 0.59 L, Nucleated RBC % 0, Differential Comment SCANNED 08/19/22 05:43: Sodium 141, Potassium 3.7, Chloride 110 H, Carbon Dioxide 27.0, Anion Gap 4 L, BUN 13, Creatinine 0.96, Estim Creat Clear Calc 40.36, Est GFR (MDRD) Af Amer 72, Est GFR (MDRD) Non-Af 59 L, BUN/Creatinine Ratio 13.5, Glucose 123 H, Calcium 8.4 L Charges/Coding Visit Charges Inpatient E&M: 78171 Init Hosp L2
--- NOTE | 2022-08-19 15:35 | RAD_ITS ---
STUDY: X-RAY CHEST REASON FOR EXAM: Female, 82 years old. Hypoxia TECHNIQUE: Single AP portable view of the chest. COMPARISON: None. FINDINGS: Elevation of the right hemidiaphragm. Findings suggestive of patchy infiltrate in the left lower lobe. Blunting of the left costophrenic angle. Cardiomegaly. Normal mediastinum and benigno. Normal visualized pulmonary arteries. Normal visualized aortic arch and descending thoracic aorta. There are degenerative changes of the visualized thoracic spine. There is degenerative osteoarthritis of the bilateral shoulders. There is no demonstrated abnormality of the visualized soft tissue structures of the upper abdomen. RAD/Chest 1 View (Portable) IMPRESSION: Findings suggestive of patchy left lower lobe infiltrate with blunting of the left costophrenic angle. Electronically Signed: Damain Knight MD at 15:56 EDT ,
--- NOTE | 2022-08-19 20:37 | PCM.HOSP.N ---
Hospitalist Note Patient with increased oxygen requirement. CXR today with LLL infiltrate appearance not noted on CT A/P at bases upon presentation. Will obtain sputum/antigens/respiratory panel/COVID antigen to be cautious. Currently on 75 cc IVF only. Will trial aerosols also to see if assists. BNP also requested. Encouraged continued aggressive IS.
[2022-08-19 21:02] LABS: BNP,B-Type NATRIURETIC PEPTIDE 95.5 pg/mL (0-100)
[2022-08-19] MEDS: Ipratropium/Albuterol Sulfate 3 ML AMPUL.NEB INHALATION (22:05)
[2022-08-19] MEDS: Nystatin Powder 15gm Bottle 1 APPLIC TOPICAL (23:49)
[2022-08-20] VITALS (13 sets, daily range): BP systolic 110–118; BP diastolic 58–68; PULSE 65–72; RESP 18–24; TEMP 36.7–37.1; O2SAT 92–95
[2022-08-20] MEDS: oxyCODONE 5 MG Tablet PO (03:03)
[2022-08-20 05:46] LABS: Absolute Lymphocyte Count 0.81 X10^3/uL (0.83-4.51); Absolute Neutrophil Count 3.3 X10^3/uL (2.0-7.7); Basophil# 0.04 X10^3/uL; Basophil% 0.8 % (0-1); Eosinophil# 0.28 X10^3/uL; Eosinophils% 5.4 % (0-5); Hematocrit 38.9 % (37-47); Hemoglobin 12.1 g/dL (12.0-15.0); Lymphocyte # 0.81 X10^3/ul (0.83-4.51); Lymphocyte % 15.7 % (19-41); Mean Corp Hgb Conc 31.1 g/dL (32-36); Mean Corpuscular Hgb 30.6 pg (27.0-32.0); Mean Corpuscular Volume 98.5 fL (81-99); Mean Platelet Vol. 9.2 fl (6.2-12.0); Monocyte# 0.72 X10^3/uL; NRBC Flagged by Analyzer 0 % (0-5); Neutrophil # 3.26 X10^3/uL (2.7-7.7); Neutrophil % 63.3 % (47-70); Platelet Count 167 K/mm3 (150-450); Red Blood Count 3.95 M/mm3 (4.2-5.4); White Blood Count 5.2 K/mm3 (4.4-11.0)
[2022-08-20] MEDS: Nystatin Ointment 1 APPLIC TOPICAL ×2 (05:50→17:41)
--- NOTE | 2022-08-20 05:55 | RAD_ITS ---
STUDY: X-RAY CHEST REASON FOR EXAM: Female, 82 years old. Dyspnea, hypoxia, cough TECHNIQUE: PA or AP COMPARISON: 08/19/2022. FINDINGS: Mild right lower lobe atelectasis. Small infiltrate in the left lower lobe is stable. Mild elevation right hemidiaphragm. Normal size heart. 2 x 1.5 cm right paratracheal density. Normal visualized pulmonary arteries. Normal visualized aortic arch and descending thoracic aorta. Normal visualized thoracic spine. Normal visualized ribs, clavicles, and shoulders. There is no demonstrated abnormality of the visualized soft tissue structures of the upper abdomen. RAD/Chest 1 View (Portable) IMPRESSION: Stable findings. Left lower lobe infiltrate. Elevation right hemidiaphragm with right lower lobe atelectasis. Right paratracheal density. This measures 1.5 x 2.0 cm. Recommend comparison to old chest x-rays aren''t available recommend chest CT without and with contrast. Electronically Signed: Artis Tello MD, MADELAINE at 13:46 EDT ,
[2022-08-20 06:20] LABS: Anion Gap 6 (5-15); BUN 11 mg/dL (7-18); BUN/Creat Ratio 12.9 RATIO (10-20); Calcium,Total 8.1 mg/dL (8.5-10.1); Chloride 108 mmol/L (98-107); Creatinine, Serum 0.86 mg/dL (0.55-1.02); EST Glomerular Filtration Rate 68 mL/min (>60); Est Glom Filt Rate - Afr Amer 82 mL/min (>60); Estimated Creatinine Clearance 45.05 ml/min; Glucose 83 mg/dL (74-106); Potassium 3.8 mmol/L (3.5-5.1); Sodium Level 140 mmol/L (136-145)
--- NOTE | 2022-08-20 07:11 | PCM.PN.HOSP ---
Subjective Subjective Follow-up for postop medical management/hypoxia/incarcerated incisional hernia: Patient was seen and examined. She is currently on 4 L of oxygen. Her COVID test was negative. Chest x-ray yesterday showed patchy left lower lobe infiltrate with blunting of the left costophrenic angle. Urine Legionella and Legionella antigen were negative. She complains of pain in her abdomen at the incisional area. Denies any fever or chills Objective Data Objective Data Vital Signs: Vital Signs Temp Pulse Resp BP Pulse Ox O2 Del Method O2 Flow Rate 98.5 F 66 20 H 118/62 95 Nasal Cannula 5 08/20/22 03:06 08/20/22 03:06 08/20/22 03:06 08/20/22 03:06 08/20/22 07:05 08/20/22 07:05 08/20/22 07:05 Oxygen Flow Rate (L/min) 5 Oxygen Delivery Method Nasal Cannula Weight: 97.5 kg Body Mass Index (BMI) 36.8 Intake & Output: Intake and Output for Last 24 Hours 08/18/22 08/19/22 08/20/22 23:59 23:59 23:59 Intake Total 1927.50 / 1927.50 1010.00 / 1010.00 50 / 50 Output Total 1185 / 1370 1190 / 1190 235 / 235 Balance 742.50 / 557.50 -180.00 / -180.00 -185 / -185 Lab / Micro Data Result Diagrams: 08/20/22 05:41 08/20/22 05:41 Labs: Laboratory Results - last 24 hr 08/19/22 05:42: B-Natriuretic Peptide 95.5 08/20/22 05:41: WBC 5.2, RBC 3.95 L, Hgb 12.1, Hct 38.9, MCV 98.5, MCH 30.6, MCHC 31.1 L, RDW Std Deviation 59.0 H, RDW Coeff of Toribio 16.0 H, Plt Count 167, MPV 9.2, Immature Gran % (Auto) 0.800, Neut % (Auto) 63.3, Lymph % (Auto) 15.7 L, [place] % (Auto) 14.0 H, Eos % (Auto) 5.4 H, Baso % (Auto) 0.8, Absolute Neuts (auto) 3.3, Absolute Lymphs (auto) 0.81 L, Nucleated RBC % 0 08/20/22 05:41: Sodium 140, Potassium 3.8, Chloride 108 H, Carbon Dioxide 26.0, Anion Gap 6, BUN 11, Creatinine 0.86, Estim Creat Clear Calc 45.05, Est GFR (MDRD) Af Amer 82, Est GFR (MDRD) Non-Af 68, BUN/Creatinine Ratio 12.9, Glucose 83, Calcium 8.1 L Micro: Microbiology 08/19/22 22:05 Mucosa - Nasopharyngeal Respiratory Panel (PCR) - Final 08/19/22 22:03 Urine Catheter - Villalta Legionella Antigen - Final 08/19/22 22:03 Urine Catheter - [place] Streptococcus pneumoniae Antigen (M - Final 08/19/22 22:00 Nasal Secretion SARS-CoV-2 Antigen (Rapid) - Final Radiography Diagnostic Testing: Radiology Impression Chest X-Ray 08/19/22 15:35 IMPRESSION: Findings suggestive of patchy left lower lobe infiltrate with blunting of the left costophrenic angle. Electronically Signed: Damian Knight MD at 15:56 EDT , Physical Exam Narrative Physical exam: General: Alert, Oriented x3, Cooperative, on 4 L of oxygen HEENT: Atraumatic Oral: Moist Mucosa Neck: Supple Lungs: Diminished to auscultation, few crackles at the bases Cardiovascular: HS I+II, regular, no murmurs Abdomen: Bowel Sounds Present, Soft, slightly tender to palpation Extremities: No edema Skin: No rashes, No breakdown Neurological: Grossly intact Psych/Mental Status: Appropriate Assessment & Plan Assessment/Plan (1) Respiratory failure with hypoxia: QUALIFIERS: Chronicity: acute Qualified Code(s): J96.01 - Acute respiratory failure with hypoxia (2) Incarcerated incisional hernia: PLAN: Plan 1. POD #2 status post reduction and repair of incarcerated incisional hernia, possibility of bacterial translocation Patient's pain is fairly controlled Continue current pain regimen, continue on IV antibiotic Follow-up on general surgery recommendations 2. Hypoxia secondary to atelectasis/probable pneumonia Patient is currently on 4 L of oxygen Advised to aggressively use incentive spirometer Continue on IV Zosyn Follow-up on sputum cultures 3. Hypertension, controlled, continue amlodipine 4. DVT prophylaxis?heparin subcu Charges/Coding Visit Charges Inpatient E&M: 04118 Subs Hosp L2
[2022-08-20 08:12] LABS: Procalcitonin 0.08 ng/mL (0.00-0.09)
[2022-08-20] MEDS: amLODIPine 5 MG Tablet PO (09:33)
[2022-08-20] MEDS: Nystatin Powder 15gm Bottle 1 APPLIC TOPICAL ×2 (09:33→21:32)
[2022-08-20] MEDS: Docusate Sodium 100 MG Capsule PO (09:33)
--- NOTE | 2022-08-20 11:06 | CASEMGMT ---
Addendum entered by Anastasiia Pham 08/20/22 15:01: Spoke with surgeon who requests pt go to SNF for therapy, no therapy ordered for pt. Ordered at this time. KARY ELIZONDO in to pt room, discussed with patient, she is agreeable to this as she lives alone. GABRIEL Kumar at [facility], cancelled referral and updated SW. Original Note: KARY ELIZONDO in to pt room to discuss dc planning. Pt sitting up in chair with oxygen on in no distress. Pt does not have oxygen at home. Discussed HHC, pt wanting to make sure this was not in competition with her [facility]. Pt denies having a immigration case manager with [facility]. Patient was provided a list of HHC providers including quality and resource use data and consistent with the patient?s preferred geographic region, medical needs, and insurance network were provided from the [facility] Guide. Pt called her friend to see who her HHC agency was. Pt then decided on [facility]. Discussed HHC requirements and expectations. GABRIEL Kumar at [facility], referral made. KARY ELIZONDO to follow for oxygen.
[2022-08-20] MEDS: Ipratropium/Albuterol Sulfate 3 ML AMPUL.NEB INHALATION ×3 (11:40→19:01)
[2022-08-20] MEDS: 0.9% Normal Saline 1,000 ML 75 ML IV (12:43)
--- NOTE | 2022-08-20 14:54 | PCM.PN.SRG ---
Subjective Subjective Small amounts of flatus. No bowel movement as of yet. Pain is mostly incisional. Objective Data Objective Data Soft tender appropriately in the incision. Vital Signs: Vital Signs Temp Pulse Resp BP Pulse Ox O2 Del Method O2 Flow Rate 98.1 F 66 19 H 113/61 92 Nasal Cannula 4 08/20/22 09:40 08/20/22 14:08 08/20/22 14:08 08/20/22 09:40 08/20/22 11:40 08/20/22 11:40 08/20/22 11:40 Oxygen Flow Rate (L/min) 4 Oxygen Delivery Method Nasal Cannula Weight: 214 lb 15.211 oz Body Mass Index (BMI) 36.8 Intake & Output: Intake and Output for Last 24 Hours 08/18/22 08/19/22 08/20/22 23:59 23:59 23:59 Intake Total 1927.50 / 1927.50 1010.00 / 1010.00 1032.5 / 1032.5 Output Total 1185 / 1370 1190 / 1190 235 / 235 Balance 742.50 / 557.50 -180.00 / -180.00 797.5 / 797.5 Lab / Micro Data Result Diagrams: 08/20/22 05:41 08/20/22 05:41 Labs: Laboratory Results - last 24 hr 08/19/22 05:42: B-Natriuretic Peptide 95.5 08/20/22 05:41: WBC 5.2, RBC 3.95 L, Hgb 12.1, Hct 38.9, MCV 98.5, MCH 30.6, MCHC 31.1 L, RDW Std Deviation 59.0 H, RDW Coeff of Toribio 16.0 H, Plt Count 167, MPV 9.2, Immature Gran % (Auto) 0.800, Neut % (Auto) 63.3, Lymph % (Auto) 15.7 L, [place] % (Auto) 14.0 H, Eos % (Auto) 5.4 H, Baso % (Auto) 0.8, Absolute Neuts (auto) 3.3, Absolute Lymphs (auto) 0.81 L, Nucleated RBC % 0 08/20/22 05:41: Sodium 140, Potassium 3.8, Chloride 108 H, Carbon Dioxide 26.0, Anion Gap 6, BUN 11, Creatinine 0.86, Estim Creat Clear Calc 45.05, Est GFR (MDRD) Af Amer 82, Est GFR (MDRD) Non-Af 68, BUN/Creatinine Ratio 12.9, Glucose 83, Calcium 8.1 L 08/20/22 05:41: Procalcitonin 0.08 Micro: Microbiology 08/19/22 22:10 Sputum, Expectorated/Coughed Gram Stain - Final 08/19/22 22:05 Mucosa - Nasopharyngeal Respiratory Panel (PCR) - Final 08/19/22 22:03 Urine Catheter - [facility] Legionella Antigen - Final 08/19/22 22:03 Urine Catheter - [place] Streptococcus pneumoniae Antigen (M - Final 08/19/22 22:00 Nasal Secretion SARS-CoV-2 Antigen (Rapid) - Final Radiography Diagnostic Testing: Radiology Impression Chest X-Ray 08/19/22 15:35 IMPRESSION: Findings suggestive of patchy left lower lobe infiltrate with blunting of the left costophrenic angle. Electronically Signed: Damian Knight MD at 15:56 EDT , Chest X-Ray 08/20/22 05:55 IMPRESSION: Stable findings. Left lower lobe infiltrate. Elevation right hemidiaphragm with right lower lobe atelectasis. Right paratracheal density. This measures 1.5 x 2.0 cm. Recommend comparison to old chest x-rays aren''t available recommend chest CT without and with contrast. Electronically Signed: Artis Tello MD, MADELAINE at 13:46 EDT , Assessment & Plan Assessment/Plan (1) Incarcerated incisional hernia: PLAN: Await full GI function. Highly unlikely that this patient is going to be able to go home and manage herself there. We will get home health involved and ascertain where she is more likely going to be at so that she can get improvement to possibly go home.
--- NOTE | 2022-08-20 15:21 | CASEMGMT ---
Social Work SW in to pt room to discuss d/c plan. SW introduced self and role at the hospital. Pt agreeable to discussing discharge plan. A printed list of SNF providers including quality and resource use data and consistent with the patient?s preferred geographic region, medical needs, and insurance network via the [employer]. Pt was not able to provide preference at this time as pt would like to discuss with daughter this evening before making choice. SW informed pt to check in with SW tomorrow morning and update with plan to finalize D/C plan. Pt voiced understanding. PLAN: SNF, TBD [facility] Auguste
[2022-08-20] MEDS: Heparin Injection (Vial) 5,000 UNIT/ML VIAL 5000 UNIT SC ×2 (15:36→21:32)
[2022-08-21] VITALS (13 sets, daily range): BP systolic 115–132; BP diastolic 54–67; PULSE 70–91; RESP 16–20; TEMP 36.6–37.6; O2SAT 90–96
[2022-08-21] MEDS: Acetaminophen 325 MG Tablet 650 MG PO ×2 (03:10→20:43)
[2022-08-21] MEDS: Heparin Injection (Vial) 5,000 UNIT/ML VIAL 5000 UNIT SC (05:51)
[2022-08-21] MEDS: Nystatin Powder 15gm Bottle 1 APPLIC TOPICAL ×3 (05:51→20:43)
[2022-08-21] MEDS: Ipratropium/Albuterol Sulfate 3 ML AMPUL.NEB INHALATION ×3 (06:49→19:43)
--- NOTE | 2022-08-21 07:31 | CT_ITS ---
STUDY: CTA CHEST REASON FOR EXAM: Female, 82 years old. Worsening hypoxia. Cough. Recent hernia repair. RADIATION DOSAGE (If Supplied By Facility): CTDIvol = ( 14.91 ) mGy, DLP = ( 404.05 ) mGycm TECHNIQUE: The examination was performed with the intravenous administration of IV 100mL Isovue-370. Post-processing of the angiographic images was performed, with multiplanar reformation and 3D reconstruction. Individualized dose optimization techniques were used for this CT. COMPARISON: Comparison is made with prior chest radiograph dated 08/20/2022. FINDINGS: Intraluminal filling defects in distal branches of the left upper lobe pulmonary artery. There is atherosclerotic calcification of the aortic arch with tortuosity. There is no demonstrated aortic dissection. There are calcifications of the coronary arteries. Calcified subcarinal lymph nodes. Normal hilar regions. Normal visualized trachea and bronchi. Elevation of the right hemidiaphragm. Consolidation in the right lower lobe with tiny pleural effusion. Mild increased markings in the posterior medial segment of the left lower lobe and anterior aspect of the left lower lobe. Normal chest wall structures. There are degenerative changes of thoracic spine. Multiple gallstones. CT/CTA Chest W/WO Contrast IMPRESSION: Limited pulmonary emboli in branches of the left upper lobe pulmonary artery. Dense consolidation in the right lower lobe with mild increased markings in the at the left lung base. Multiple gallstones. Electronically Signed: Damian Knight MD at 9:09 EDT ,
[2022-08-21] MEDS: 0.9% Saline Lock 10 ML Syringe IV ×2 (08:11→18:45)
[2022-08-21 08:28] LABS: Absolute Lymphocyte Count 0.63 X10^3/uL (0.83-4.51); Absolute Neutrophil Count 2.1 X10^3/uL (2.0-7.7); Basophil# 0.04 X10^3/uL; Basophil% 1.1 % (0-1); Eosinophils% 8.4 % (0-5); Hematocrit 39.1 % (37-47); Hemoglobin 12.4 g/dL (12.0-15.0); Lymphocyte # 0.63 X10^3/ul (0.83-4.51); Lymphocyte % 17.6 % (19-41); Mean Corp Hgb Conc 31.7 g/dL (32-36); Mean Corpuscular Hgb 31.4 pg (27.0-32.0); Mean Platelet Vol. 8.6 fl (6.2-12.0); Monocyte# 0.49 X10^3/uL; Monocyte% 13.7 % (0-10); NRBC Flagged by Analyzer 0 % (0-5); Neutrophil # 2.09 X10^3/uL (2.7-7.7); Neutrophil % 58.6 % (47-70); Platelet Count 187 K/mm3 (150-450); RBC Distribution Width CV 15.9 % (11.6-14.6); RBC Distribution Width SD 58.6 fl (35.1-43.9); Red Blood Count 3.95 M/mm3 (4.2-5.4); White Blood Count 3.6 K/mm3 (4.4-11.0)
[2022-08-21 09:00] LABS: ALB/GLOB Ratio 0.6 RATIO (0.9-2.4); AST(SGOT) 13 U/L (15-37); Alanine Aminotransfer ALT/SGPT 15 U/L (13-56); Albumin, Serum 2.3 g/dL (3.2-5.0); Alkaline Phosphatase 268 U/L (45-117); Anion Gap 5 (5-15); BUN 8 mg/dL (7-18); BUN/Creat Ratio 9.5 RATIO (10-20); Calcium,Total 8.3 mg/dL (8.5-10.1); Chloride 110 mmol/L (98-107); Creatinine, Serum 0.84 mg/dL (0.55-1.02); EST Glomerular Filtration Rate 69 mL/min (>60); Est Glom Filt Rate - Afr Amer 84 mL/min (>60); Estimated Creatinine Clearance 46.13 ml/min; Globulin 3.8 g/dL (2.2-4.2); Glucose 100 mg/dL (74-106); Potassium 3.6 mmol/L (3.5-5.1); Protein, Total 6.1 g/dL (6.4-8.2); Sodium Level 143 mmol/L (136-145)
--- NOTE | 2022-08-21 09:19 | VDLE_ITS ---
Reason For Study: Pulmonary embolism RIGHT LEFT GSV is normal. GSV is normal. CFV is compressible, spontaneous, phasic, CFV is compressible, spontaneous, phasic, competent and demonstrates normal competent, and demonstrates normal augmentation. augmentation. FV is compressible, spontaneous, phasic, FV is compressible, spontaneous, phasic, competent and demonstrates normal competent and demonstrates normal augmentation. augmentation. FV distal visualized with color only, appear POP V is compressible, spontaneous, phasic, patent. Patient unable to tolerate competent and demonstrates normal compression. augmentation. POP V is compressible, spontaneous, phasic, T/P Trunk is compressible. competent and demonstrates normal PTV is compressible. augmentation. LT PerV is compressible. T/P Trunk is compressible. PTV is compressible. RT PerV is compressible. Procedure This is a venous duplex using B-mode, color flow and spectral Doppler. Exam performed portable in patient room. A preliminary report was called and/or faxed to [facility]. VL/Venous Duplex US - Nithin Extrem Interpretation Summary Deep veins of the bilateral lower extremities are patent and compressible segme ntally. There is no evidence of bilateral lower extremity deep vein thrombosis. The bilateral great saphenous veins appear patent and compressible segmentally. Ordering Physician: Sheridan Cortes Referring Physician: Mio Juarez Performed By: Estella Peter RVT
--- NOTE | 2022-08-21 09:20 | PCM.PN.HOSP ---
Subjective Subjective Follow-up for postop medical management/hypoxia/incarcerated incisional hernia: Patient was seen and examined.? Patient complains of shortness of breath with use of incentive spirometer and exertion. She has been walking around the hallways. She has been passing bowel movement. She is currently on 6 L of oxygen. She is off IV fluids. Patient has severe intertrigo skin irritation, worse in the groin underneath both breasts. Denies any fever or chills. Objective Data Objective Data Vital Signs: Vital Signs Temp Pulse Resp BP Pulse Ox O2 Del Method O2 Flow Rate 97.9 F 70 18 115/54 L 92 Nasal Cannula 6 08/21/22 08:23 08/21/22 08:23 08/21/22 08:23 08/21/22 08:23 08/21/22 08:23 08/21/22 08:23 08/21/22 08:23 Oxygen Flow Rate (L/min) 6 Oxygen Delivery Method Nasal Cannula Weight: 97.5 kg Body Mass Index (BMI) 36.8 Intake & Output: Intake and Output for Last 24 Hours 08/19/22 08/20/22 08/21/22 23:59 23:59 23:59 Intake Total 1010.00 / 1010.00 2475.0 / 2475.0 50 / 50 Output Total 1190 / 1190 853 / 863 Balance -180.00 / -180.00 1622.0 / 1612.0 30 Lab / Micro Data Result Diagrams: 08/21/22 08:15 08/21/22 08:15 Labs: Laboratory Results - last 24 hr 08/21/22 08:15: WBC 3.6 L, RBC 3.95 L, Hgb 12.4, Hct 39.1, MCV 99.0, MCH 31.4, MCHC 31.7 L, RDW Std Deviation 58.6 H, RDW Coeff of Toribio 15.9 H, Plt Count 187, MPV 8.6, Immature Gran % (Auto) 0.600, Neut % (Auto) 58.6, Lymph % (Auto) 17.6 L, [place] % (Auto) 13.7 H, Eos % (Auto) 8.4 H, Baso % (Auto) 1.1 H, Absolute Neuts (auto) 2.1, Absolute Lymphs (auto) 0.63 L, Nucleated RBC % 0 08/21/22 08:15: Sodium 143, Potassium 3.6, Chloride 110 H, Carbon Dioxide 28.0, Anion Gap 5, BUN 8, Creatinine 0.84, Estim Creat Clear Calc 46.13, Est GFR (MDRD) Af Amer 84, Est GFR (MDRD) Non-Af 69, BUN/Creatinine Ratio 9.5 L, Glucose 100, Calcium 8.3 L, Total Bilirubin 0.70, AST 13 L, ALT 15, Alkaline Phosphatase 268 H, Total Protein 6.1 L, Albumin 2.3 L, Globulin 3.8, Albumin/Globulin Ratio 0.6 L Micro: Microbiology 08/19/22 22:10 Sputum, Expectorated/Coughed Gram Stain - Final 08/19/22 22:10 Sputum, Expectorated/Coughed Respiratory Culture - Preliminary Appears to be normal respiratory gianna. Further studies to follow. 08/19/22 22:05 Mucosa - Nasopharyngeal Respiratory Panel (PCR) - Final 08/19/22 22:03 Urine Catheter - Villalta Legionella Antigen - Final 08/19/22 22:03 Urine Catheter - Villalta Streptococcus pneumoniae Antigen (M - Final 08/19/22 22:00 Nasal Secretion SARS-CoV-2 Antigen (Rapid) - Final Radiography Diagnostic Testing: Radiology Impression Chest X-Ray 08/20/22 05:55 IMPRESSION: Stable findings. Left lower lobe infiltrate. Elevation right hemidiaphragm with right lower lobe atelectasis. Right paratracheal density. This measures 1.5 x 2.0 cm. Recommend comparison to old chest x-rays aren''t available recommend chest CT without and with contrast. Electronically Signed: Artis Tello MD, MADELAINE at 13:46 EDT , Chest CTA 08/21/22 07:31 IMPRESSION: Limited pulmonary emboli in branches of the left upper lobe pulmonary artery. Dense consolidation in the right lower lobe with mild increased markings in the at the left lung base. Multiple gallstones. Electronically Signed: Damian Knight MD at 9:09 EDT , Physical Exam Narrative Physical exam: General: Alert, Oriented x3, Cooperative, obese, on 6 L of oxygen HEENT: Atraumatic Oral: Moist Mucosa Neck: Supple Lungs: Diminished to auscultation, few crackles at the bases Cardiovascular: HS I+II, regular, no murmurs Abdomen: Abdominal binder in place, dressing clean and dry, AYAAN drain in place, bowel Sounds Present, Soft, slightly tender to palpation, severe nneka intertrigo in bilateral groin or underneath both breasts Extremities: No edema Skin: No rashes, No breakdown Neurological: Grossly intact Psych/Mental Status: Appropriate Assessment & Plan Assessment/Plan (1) Respiratory failure with hypoxia: QUALIFIERS: Chronicity: acute Qualified Code(s): J96.01 - Acute respiratory failure with hypoxia (2) Incarcerated incisional hernia: PLAN: Plan 1. Acute hypoxic respiratory failure due to acute PE/acute right lower lobe pneumonia Patient is currently on 6 L of oxygen; off IV fluid CTA of the chest showed filling defect in the distal branches of the left upper lobe, consolidation of the right lower lobe with tiny pleural effusion We will start on Lovenox subcu twice daily for now We will check Doppler ultrasound of both legs for acute DVT Trial of Lasix 40 mg IV x1 We will transition to oral novel anticoagulants at discharge 2. Acute right lower lobe pneumonia, Continue on IV Zosyn(day 5) 3.POD #3 status post reduction and repair of incarcerated incisional hernia, possibility of bacterial translocation Patient's pain is fairly controlled Continue current pain regimen Follow-up on general surgery recommendations 4. Hypertension, controlled, continue amlodipine 5. DVT prophylaxis?on therapeutic Lovenox for now Charges/Coding Visit Charges Inpatient E&M: 74191 Subs Hosp L3
--- NOTE | 2022-08-21 11:40 | CASEMGMT ---
Addendum entered by Desirae Navarrete 08/21/22 16:09: Social Work Per pt request, phone call to pt dgt Elsa and discussed discharge plan. Elsa agrees pt should not return home and want SNF placement at [facility]. Per Jessie at [facility], they are reviewing case but if they accept, they are unable to accept until Wednesday. Physician updated. Plan: [facility], pending acceptance. NAJMA Chacon Addendum entered by Desirae Navarrete 08/21/22 15:22: Social Work Per therapy, pt can go home. SW met with pt to discuss this. Pt is adamant that she does not feel she can return home as she cannot care for herself at home and her daughter is not available to assist. Pt states that they physician is recommending SNF and she feels he is correct and would like to go to SNF for rehab for a couple weeks. TCU does not have beds available. VM left with Jessie at [facility] and lena Tovar miller head assistant wet process, notified to send referral via care port. Plan: [facility], pending acceptance NAJMA Conn Original Note: Social Work SW met with pt to discuss discharge plan. Pt stating she lives alone and feels she may need SNF for short term rehab. Pt lives at home alone and her daughter is out of town frequently and unable to assist. Pt preferred provider is 1. [facility] and 2. [facility]. Therapy entered room. JAC explained to pt she will work with therapy and this will assist with determining need for SNF. JAC will followup after therapy. NAJMA Chacon
[2022-08-21] MEDS: Bisacodyl 10 MG Suppository RC (12:14)
[2022-08-21] MEDS: Furosemide 40 MG/4 ML Vial IV (12:31)
[2022-08-21] MEDS: amLODIPine 5 MG Tablet PO (12:31)
[2022-08-21] MEDS: Enoxaparin 100 MG/ML Syringe 90 MG SC ×2 (12:31→18:40)
[2022-08-21] MEDS: Docusate Sodium 100 MG Capsule PO (12:56)
[2022-08-21] MEDS: Fluconazole 100 MG Tablet PO (14:14)
--- NOTE | 2022-08-21 15:25 | CASEMGMT ---
Discharge Lpn Or Medical Assistant This residential mortgage underwriter sent referral to Jessie at [facility]. Corie SOLORZANO [employer] Supervisor
--- NOTE | 2022-08-21 15:33 | PN.SURG_ITS ---
Subjective Subjective Patient had a decrease in her saturation subsequently underwent a CAT scan of her chest showing a pulmonary embolism and has subsequently been started on anticoagulation. She has had 3 small bowel movements. Her abdominal pain is still requiring medication Objective Data Objective Data Dressing is dry AYAAN drain was removed in its entirety without difficulty. Vital Signs: Vital Signs Temp Pulse Resp BP Pulse Ox O2 Del Method O2 Flow Rate 98.1 F 91 18 118/66 91 Nasal Cannula 5 08/21/22 15:00 08/21/22 15:00 08/21/22 15:00 08/21/22 15:00 08/21/22 15:00 08/21/22 15:00 08/21/22 15:00 Oxygen Flow Rate (L/min) 5 Oxygen Delivery Method Nasal Cannula Weight: 214 lb 15.211 oz Body Mass Index (BMI) 36.8 Intake & Output: Intake and Output for Last 24 Hours 08/19/22 08/20/22 08/21/22 23:59 23:59 23:59 Intake Total 1010.00 / 1010.00 2475.0 / 2475.0 620 / 620 Output Total 1190 / 1190 853 / 863 Balance -180.00 / -180.00 1622.0 / 1612.0 600 / 600 Lab / Micro Data Result Diagrams: 08/21/22 08:15 08/21/22 08:15 Labs: Laboratory Results - last 24 hr 08/21/22 08:15: WBC 3.6 L, RBC 3.95 L, Hgb 12.4, Hct 39.1, MCV 99.0, MCH 31.4, MCHC 31.7 L, RDW Std Deviation 58.6 H, RDW Coeff of Toribio 15.9 H, Plt Count 187, MPV 8.6, Immature Gran % (Auto) 0.600, Neut % (Auto) 58.6, Lymph % (Auto) 17.6 L , [place] % (Auto) 13.7 H, Eos % (Auto) 8.4 H, Baso % (Auto) 1.1 H, Absolute Neuts (auto) 2.1, Absolute Lymphs (auto) 0.63 L, Nucleated RBC % 0 08/21/22 08:15: Sodium 143, Potassium 3.6, Chloride 110 H, Carbon Dioxide 28.0, Anion Gap 5, BUN 8, Creatinine 0.84, Estim Creat Clear Calc 46.13, Est GFR (MDRD) Af Amer 84, Est GFR (MDRD) Non-Af 69, BUN/Creatinine Ratio 9.5 L, Glucose 100, Calcium 8.3 L, Total Bilirubin 0.70, AST 13 L, ALT 15, Alkaline Phosphatase 268 H, Total Protein 6.1 L, Albumin 2.3 L, Globulin 3.8, Albumin/Globulin Ratio 0.6 L Micro: Microbiology 08/19/22 22:10 Sputum, Expectorated/Coughed Gram Stain - Final 08/19/22 22:10 Sputum, Expectorated/Coughed Respiratory Culture - Preliminary Appears to be normal respiratory gianna. Further studies to follow. 08/19/22 22:05 Mucosa - Nasopharyngeal Respiratory Panel (PCR) - Final 08/19/22 22:03 Urine Catheter - Villalta Legionella Antigen - Final 08/19/22 22:03 Urine Catheter - [facility]alta Streptococcus pneumoniae Antigen (M - Final 08/19/22 22:00 Nasal Secretion SARS-CoV-2 Antigen (Rapid) - Final Radiography Diagnostic Testing: Radiology Impression Chest CTA 08/21/22 07:31 IMPRESSION: Limited pulmonary emboli in branches of the left upper lobe pulmonary artery. Dense consolidation in the right lower lobe with mild increased markings in the at the left lung base. Multiple gallstones. Electronically Signed: Damian Knight MD at 9:09 EDT , Assessment & Plan Assessment/Plan (1) Incarcerated incisional hernia: PLAN: Bowel function is returning. Currently getting treatment for her pulmonary embolism. Awaiting placement to extra care facility.
--- NOTE | 2022-08-21 16:13 | CASEMGMT ---
Social Work 7000 started in [place] [facility]
[2022-08-22] VITALS (13 sets, daily range): BP systolic 107–126; BP diastolic 52–72; PULSE 56–74; RESP 16–24; TEMP 36.5–37; O2SAT 87–96
[2022-08-22] MEDS: Nystatin Powder 15gm Bottle 1 APPLIC TOPICAL ×3 (06:07→21:11)
[2022-08-22] MEDS: Enoxaparin 100 MG/ML Syringe 90 MG SC (06:08)
[2022-08-22] MEDS: Acetaminophen 325 MG Tablet 650 MG PO (06:19)
[2022-08-22 06:31] LABS: Absolute Lymphocyte Count 0.81 X10^3/uL (0.83-4.51); Absolute Neutrophil Count 1.7 X10^3/uL (2.0-7.7); Basophil# 0.04 X10^3/uL; Basophil% 1.1 % (0-1); Eosinophil# 0.44 X10^3/uL; Eosinophils% 12.5 % (0-5); Hematocrit 40.4 % (37-47); Hemoglobin 12.5 g/dL (12.0-15.0); Lymphocyte # 0.81 X10^3/ul (0.83-4.51); Mean Corp Hgb Conc 30.9 g/dL (32-36); Mean Corpuscular Hgb 30.3 pg (27.0-32.0); Mean Corpuscular Volume 98.1 fL (81-99); Mean Platelet Vol. 8.8 fl (6.2-12.0); Monocyte# 0.55 X10^3/uL; Monocyte% 15.6 % (0-10); NRBC Flagged by Analyzer 0 % (0-5); Neutrophil # 1.67 X10^3/uL (2.7-7.7); Neutrophil % 47.5 % (47-70); Platelet Count 216 K/mm3 (150-450); RBC Distribution Width SD 58.3 fl (35.1-43.9); Red Blood Count 4.12 M/mm3 (4.2-5.4); White Blood Count 3.5 K/mm3 (4.4-11.0)
[2022-08-22 07:05] LABS: ALB/GLOB Ratio 0.6 RATIO (0.9-2.4); AST(SGOT) 15 U/L (15-37); Alanine Aminotransfer ALT/SGPT 17 U/L (13-56); Albumin, Serum 2.4 g/dL (3.2-5.0); Alkaline Phosphatase 264 U/L (45-117); Anion Gap 4 (5-15); BUN 7 mg/dL (7-18); BUN/Creat Ratio 8.1 RATIO (10-20); Calcium,Total 8.6 mg/dL (8.5-10.1); Chloride 110 mmol/L (98-107); Creatinine, Serum 0.87 mg/dL (0.55-1.02); EST Glomerular Filtration Rate 67 mL/min (>60); Est Glom Filt Rate - Afr Amer 81 mL/min (>60); Estimated Creatinine Clearance 44.54 ml/min; Globulin 3.7 g/dL (2.2-4.2); Glucose 100 mg/dL (74-106); Potassium 3.6 mmol/L (3.5-5.1); Protein, Total 6.1 g/dL (6.4-8.2); Sodium Level 145 mmol/L (136-145)
[2022-08-22] MEDS: Ipratropium/Albuterol Sulfate 3 ML AMPUL.NEB INHALATION ×4 (07:25→19:26)
--- NOTE | 2022-08-22 08:09 | PCM.PN.HOSP ---
Subjective Subjective Follow-up for postop medical management/hypoxia/incarcerated incisional hernia: Patient was seen and examined. She is on 3 L of oxygen. She denies feeling short of breath. She is tolerating an advancement in her diet. No other issues overnight. Objective Data Objective Data Vital Signs: Vital Signs Temp Pulse Resp BP Pulse Ox O2 Del Method O2 Flow Rate 98.1 F 57 L 16 107/68 93 Nasal Cannula 2 08/22/22 03:00 08/22/22 07:26 08/22/22 07:26 08/22/22 03:00 08/22/22 07:26 08/22/22 07:26 08/22/22 07:26 Oxygen Flow Rate (L/min) 2 Oxygen Delivery Method Nasal Cannula Weight: 97.5 kg Body Mass Index (BMI) 36.8 Intake & Output: Intake and Output for Last 24 Hours 08/20/22 08/21/22 08/22/22 23:59 23:59 23:59 Intake Total 2475.0 / 2475.0 1370 / 1370 50 / 50 Output Total 853 / 863 38 / 38 Balance 1622.0 / 1612.0 1332 / 1332 50 / 50 Lab / Micro Data Result Diagrams: 08/22/22 06:00 08/22/22 06:00 Labs: Laboratory Results - last 24 hr 08/21/22 08:15: WBC 3.6 L, RBC 3.95 L, Hgb 12.4, Hct 39.1, MCV 99.0, MCH 31.4, MCHC 31.7 L, RDW Std Deviation 58.6 H, RDW Coeff of Toribio 15.9 H, Plt Count 187, MPV 8.6, Immature Gran % (Auto) 0.600, Neut % (Auto) 58.6, Lymph % (Auto) 17.6 L, [place] % (Auto) 13.7 H, Eos % (Auto) 8.4 H, Baso % (Auto) 1.1 H, Absolute Neuts (auto) 2.1, Absolute Lymphs (auto) 0.63 L, Nucleated RBC % 0 08/21/22 08:15: Sodium 143, Potassium 3.6, Chloride 110 H, Carbon Dioxide 28.0, Anion Gap 5, BUN 8, Creatinine 0.84, Estim Creat Clear Calc 46.13, Est GFR (MDRD) Af Amer 84, Est GFR (MDRD) Non-Af 69, BUN/Creatinine Ratio 9.5 L, Glucose 100, Calcium 8.3 L, Total Bilirubin 0.70, AST 13 L, ALT 15, Alkaline Phosphatase 268 H, Total Protein 6.1 L, Albumin 2.3 L, Globulin 3.8, Albumin/Globulin Ratio 0.6 L 08/22/22 06:00: WBC 3.5 L, RBC 4.12 L, Hgb 12.5, Hct 40.4, MCV 98.1, MCH 30.3, MCHC 30.9 L, RDW Std Deviation 58.3 H, RDW Coeff of Toribio 16.0 H, Plt Count 216, MPV 8.8, Immature Gran % (Auto) 0.300, Neut % (Auto) 47.5, Lymph % (Auto) 23.0, [place] % (Auto) 15.6 H, Eos % (Auto) 12.5 H, Baso % (Auto) 1.1 H, Absolute Neuts (auto) 1.7 L, Absolute Lymphs (auto) 0.81 L, Nucleated RBC % 0 08/22/22 06:00: Sodium 145, Potassium 3.6, Chloride 110 H, Carbon Dioxide 31.0, Anion Gap 4 L, BUN 7, Creatinine 0.87, Estim Creat Clear Calc 44.54, Est GFR (MDRD) Af Amer 81, Est GFR (MDRD) Non-Af 67, BUN/Creatinine Ratio 8.1 L, Glucose 100, Calcium 8.6, Total Bilirubin 0.70, AST 15, ALT 17, Alkaline Phosphatase 264 H, Total Protein 6.1 L, Albumin 2.4 L, Globulin 3.7, Albumin/Globulin Ratio 0.6 L Micro: Microbiology 08/19/22 22:10 Sputum, Expectorated/Coughed Gram Stain - Final 08/19/22 22:10 Sputum, Expectorated/Coughed Respiratory Culture - Preliminary Appears to be normal respiratory gianna. Further studies to follow. 08/19/22 22:05 Mucosa - Nasopharyngeal Respiratory Panel (PCR) - Final 08/19/22 22:03 Urine Catheter - Villalta Legionella Antigen - Final 08/19/22 22:03 Urine Catheter - Villalta Streptococcus pneumoniae Antigen (M - Final 08/19/22 22:00 Nasal Secretion SARS-CoV-2 Antigen (Rapid) - Final Radiography Diagnostic Testing: Radiology Impression Chest CTA 08/21/22 07:31 IMPRESSION: Limited pulmonary emboli in branches of the left upper lobe pulmonary artery. Dense consolidation in the right lower lobe with mild increased markings in the at the left lung base. Multiple gallstones. Electronically Signed: Damian Knight MD at 9:09 EDT , Physical Exam Narrative Physical exam: General: Alert, Oriented x3, Cooperative, obese, on 6 L of oxygen HEENT: Atraumatic Oral: Moist Mucosa Neck: Supple Lungs: Diminished to auscultation, few crackles at the bases Cardiovascular: HS I+II, regular, no murmurs Abdomen: Abdominal binder in place, dressing clean and dry, AYAAN drain in place, bowel Sounds Present, Soft, slightly tender to palpation, severe nneka intertrigo in bilateral groin or underneath both breasts Extremities: No edema Skin: No rashes, No breakdown Neurological: Grossly intact Psych/Mental Status: Appropriate Assessment & Plan Assessment/Plan (1) Respiratory failure with hypoxia: QUALIFIERS: Chronicity: acute Qualified Code(s): J96.01 - Acute respiratory failure with hypoxia (2) Incarcerated incisional hernia: PLAN: Plan 1. Acute hypoxic respiratory failure due to acute PE/acute right lower lobe pneumonia, improving slowly Currently on 3 L of oxygen CTA of the chest showed filling defect in the distal branches of the left upper lobe, consolidation of the right lower lobe with tiny pleural effusion We will switch from subcu Lovenox to Eliquis Doppler ultrasound of both legs results are pending 2. Acute right lower lobe pneumonia, Continue on IV Zosyn(day 6) We will de-escalate antibiotics to Augmentin (start 08/23/22 am) to complete 10 days 3.POD #4 status post reduction and repair of incarcerated incisional hernia, possibility of bacterial translocation Patient's pain is fairly controlled Continue current pain regimen Follow-up on general surgery recommendations 4. Hypertension, controlled, continue amlodipine 5. DVT prophylaxis?on therapeutic Lovenox/Eliquis Charges/Coding Visit Charges Inpatient E&M: 07378 Subs Hosp L2
--- NOTE | 2022-08-22 08:37 | PN.SURG_ITS ---
Subjective Subjective Patient is having a bowel movement tolerating p.o. Complaining of incisional pain. Does not feel short of breath. Objective Data Objective Data Dressings clean and dry abdomen is soft appropriately tender in the midline Vital Signs: Vital Signs Temp Pulse Resp BP Pulse Ox O2 Del Method O2 Flow Rate 98.1 F 57 L 16 107/68 93 Nasal Cannula 2 08/22/22 03:00 08/22/22 07:26 08/22/22 07:26 08/22/22 03:00 08/22/22 07:26 08/22/22 07:26 08/22/22 07:26 Oxygen Flow Rate (L/min) 2 Oxygen Delivery Method Nasal Cannula Weight: 214 lb 15.211 oz Body Mass Index (BMI) 36.8 Intake & Output: Intake and Output for Last 24 Hours 08/20/22 08/21/22 08/22/22 23:59 23:59 23:59 Intake Total 2475.0 / 2475.0 1370 / 1370 50 / 50 Output Total 853 / 863 38 / 38 Balance 1622.0 / 1612.0 1332 / 1332 50 / 50 Lab / Micro Data Result Diagrams: 08/22/22 06:00 08/22/22 06:00 Labs: Laboratory Results - last 24 hr 08/21/22 08:15: Sodium 143, Potassium 3.6, Chloride 110 H, Carbon Dioxide 28.0, Anion Gap 5, BUN 8, Creatinine 0.84, Estim Creat Clear Calc 46.13, Est GFR (MDRD) Af Amer 84, Est GFR (MDRD) Non-Af 69, BUN/Creatinine Ratio 9.5 L, Glucose 100, Calcium 8.3 L, Total Bilirubin 0.70, AST 13 L, ALT 15, Alkaline Phosphatase 268 H, Total Protein 6.1 L, Albumin 2.3 L, Globulin 3.8, Albumin/Globulin Ratio 0.6 L 08/22/22 06:00: WBC 3.5 L, RBC 4.12 L, Hgb 12.5, Hct 40.4, MCV 98.1, MCH 30.3, MCHC 30.9 L, RDW Std Deviation 58.3 H, RDW Coeff of Toribio 16.0 H, Plt Count 216, MPV 8.8, Immature Gran % (Auto) 0.300, Neut % (Auto) 47.5, Lymph % (Auto) 23.0, [place] % (Auto) 15.6 H, Eos % (Auto) 12.5 H, Baso % (Auto) 1.1 H, Absolute Neuts (auto) 1.7 L, Absolute Lymphs (auto) 0.81 L, Nucleated RBC % 0 08/22/22 06:00: Sodium 145, Potassium 3.6, Chloride 110 H, Carbon Dioxide 31.0, Anion Gap 4 L, BUN 7, Creatinine 0.87, Estim Creat Clear Calc 44.54, Est GFR (MDRD) Af Amer 81, Est GFR (MDRD) Non-Af 67, BUN/Creatinine Ratio 8.1 L, Glucose 100, Calcium 8.6, Total Bilirubin 0.70, AST 15, ALT 17, Alkaline Phosphatase 264 H, Total Protein 6.1 L, Albumin 2.4 L, Globulin 3.7, Albumin/Globulin Ratio 0.6 L Micro: Microbiology 08/19/22 22:10 Sputum, Expectorated/Coughed Gram Stain - Final 08/19/22 22:10 Sputum, Expectorated/Coughed Respiratory Culture - Preliminary Appears to be normal respiratory gianna. Further studies to follow. 08/19/22 22:05 Mucosa - Nasopharyngeal Respiratory Panel (PCR) - Final 08/19/22 22:03 Urine Catheter - Villalta Legionella Antigen - Final 08/19/22 22:03 Urine Catheter - Villalta Streptococcus pneumoniae Antigen (M - Final 08/19/22 22:00 Nasal Secretion SARS-CoV-2 Antigen (Rapid) - Final Radiography Diagnostic Testing: Radiology Impression Chest CTA 08/21/22 07:31 IMPRESSION: Limited pulmonary emboli in branches of the left upper lobe pulmonary artery. Dense consolidation in the right lower lobe with mild increased markings in the at the left lung base. Multiple gallstones. Electronically Signed: Damian Knight MD at 9:09 EDT , Assessment & Plan Assessment/Plan (1) Incarcerated incisional hernia: PLAN: Oxygen saturation is slowly improving. Await placement at [facility]. This will more likely happen this coming Wednesday.
[2022-08-22] MEDS: amLODIPine 5 MG Tablet PO (08:53)
[2022-08-22] MEDS: Docusate Sodium 100 MG Capsule PO (08:53)
[2022-08-22] MEDS: Fluconazole 100 MG Tablet PO (08:54)
[2022-08-22] MEDS: guaiFENesin 10 ML UDC (200MG/10ML) PO (21:10)
[2022-08-22] MEDS: APIXABAN 5 MG TABLET 10 MG PO (21:11)
[2022-08-23] VITALS (12 sets, daily range): BP systolic 117–146; BP diastolic 61–87; PULSE 64–77; RESP 16–28; TEMP 36.5–36.9; O2SAT 92–97
[2022-08-23 06:32] LABS: Absolute Lymphocyte Count 0.81 X10^3/uL (0.83-4.51); Absolute Neutrophil Count 2.1 X10^3/uL (2.0-7.7); Basophil# 0.04 X10^3/uL; Eosinophils% 10.1 % (0-5); Hematocrit 40.4 % (37-47); Hemoglobin 12.8 g/dL (12.0-15.0); Lymphocyte # 0.81 X10^3/ul (0.83-4.51); Lymphocyte % 20.4 % (19-41); Mean Corp Hgb Conc 31.7 g/dL (32-36); Mean Corpuscular Hgb 30.5 pg (27.0-32.0); Mean Corpuscular Volume 96.4 fL (81-99); Mean Platelet Vol. 8.8 fl (6.2-12.0); Monocyte# 0.56 X10^3/uL; Monocyte% 14.1 % (0-10); NRBC Flagged by Analyzer 0 % (0-5); Neutrophil # 2.14 X10^3/uL (2.7-7.7); Neutrophil % 53.6 % (47-70); Platelet Count 235 K/mm3 (150-450); RBC Distribution Width CV 16.4 % (11.6-14.6); Red Blood Count 4.19 M/mm3 (4.2-5.4)
[2022-08-23 06:57] LABS: ALB/GLOB Ratio 0.7 RATIO (0.9-2.4); AST(SGOT) 17 U/L (15-37); Alanine Aminotransfer ALT/SGPT 21 U/L (13-56); Albumin, Serum 2.6 g/dL (3.2-5.0); Alkaline Phosphatase 280 U/L (45-117); Anion Gap 8 (5-15); BUN 9 mg/dL (7-18); BUN/Creat Ratio 9.5 RATIO (10-20); Calcium,Total 8.5 mg/dL (8.5-10.1); Chloride 107 mmol/L (98-107); Creatinine, Serum 0.94 mg/dL (0.55-1.02); EST Glomerular Filtration Rate 61 mL/min (>60); Est Glom Filt Rate - Afr Amer 73 mL/min (>60); Estimated Creatinine Clearance 41.22 ml/min; Globulin 3.9 g/dL (2.2-4.2); Glucose 109 mg/dL (74-106); Potassium 3.4 mmol/L (3.5-5.1); Protein, Total 6.5 g/dL (6.4-8.2); Sodium Level 143 mmol/L (136-145)
[2022-08-23] MEDS: Ipratropium/Albuterol Sulfate 3 ML AMPUL.NEB INHALATION ×3 (07:30→19:11)
--- NOTE | 2022-08-23 07:38 | PN.SURG_ITS ---
Subjective Subjective Complaining of coughing Objective Data Objective Data Abdomen is soft dressings are dry Vital Signs: Vital Signs Temp Pulse Resp BP Pulse Ox O2 Del Method O2 Flow Rate 97.7 F L 64 18 144/87 H 93 Nasal Cannula 3 08/23/22 03:08 08/23/22 07:30 08/23/22 07:30 08/23/22 03:08 08/23/22 07:27 08/23/22 07:27 08/23/22 07:27 Oxygen Flow Rate (L/min) 3 Oxygen Delivery Method Nasal Cannula Weight: 214 lb 15.211 oz Body Mass Index (BMI) 36.8 Intake & Output: Intake and Output for Last 24 Hours 08/21/22 08/22/22 08/23/22 23:59 23:59 23:59 Intake Total 1370 / 1370 950 / 950 50 / 50 Output Total 38 / 38 Balance 1332 / 1332 950 / 950 50 / 50 Lab / Micro Data Result Diagrams: 08/23/22 05:40 08/23/22 05:40 Labs: Laboratory Results - last 24 hr 08/23/22 05:40: WBC 4.0 L, RBC 4.19 L, Hgb 12.8, Hct 40.4, MCV 96.4, MCH 30.5, MCHC 31.7 L, RDW Std Deviation 58.0 H, RDW Coeff of Toribio 16.4 H, Plt Count 235, MPV 8.8, Immature Gran % (Auto) 0.800, Neut % (Auto) 53.6, Lymph % (Auto) 20.4, [place] % (Auto) 14.1 H, Eos % (Auto) 10.1 H, Baso % (Auto) 1.0, Absolute Neuts (auto) 2.1, Absolute Lymphs (auto) 0.81 L, Nucleated RBC % 0 08/23/22 05:40: Sodium 143, Potassium 3.4 L, Chloride 107, Carbon Dioxide 28.0, Anion Gap 8, BUN 9, Creatinine 0.94, Estim Creat Clear Calc 41.22, Est GFR (MDRD) Af Amer 73, Est GFR (MDRD) Non-Af 61, BUN/Creatinine Ratio 9.5 L, Glucose 109 H, Calcium 8.5, Total Bilirubin 0.50, AST 17, ALT 21, Alkaline Phosphatase 280 H, Total Protein 6.5, Albumin 2.6 L, Globulin 3.9, Albumin/Globulin Ratio 0.7 L Micro: Microbiology 08/19/22 22:10 Sputum, Expectorated/Coughed Gram Stain - Final 08/19/22 22:10 Sputum, Expectorated/Coughed Respiratory Culture - Final Mixed normal respiratory gianna. No Streptococcus pneumoniae, beta-hemolytic Streptococcus or Staphylococcus aureus isolated. 08/19/22 22:05 Mucosa - Nasopharyngeal Respiratory Panel (PCR) - Final 08/19/22 22:03 Urine Catheter - Villalta Legionella Antigen - Final 08/19/22 22:03 Urine Catheter - [facility]alta Streptococcus pneumoniae Antigen (M - Final 08/19/22 22:00 Nasal Secretion SARS-CoV-2 Antigen (Rapid) - Final Assessment & Plan Assessment/Plan (1) Incarcerated incisional hernia: PLAN: Diet has been advanced. Moving her bowels. Okay for discharge on Wednesday.
[2022-08-23] MEDS: Fluconazole 100 MG Tablet PO (08:47)
[2022-08-23] MEDS: APIXABAN 5 MG TABLET 10 MG PO ×2 (08:47→21:55)
[2022-08-23] MEDS: amLODIPine 5 MG Tablet PO (08:47)
[2022-08-23] MEDS: Docusate Sodium 100 MG Capsule PO (08:48)
[2022-08-23] MEDS: Amox/Clavulanate 875 MG Tablet PO ×2 (08:48→21:55)
--- NOTE | 2022-08-23 08:54 | PN.HOSP_ITS ---
Subjective Subjective Follow-up for postop medical management/hypoxia/incarcerated incisional hernia: Patient was seen and examined. She remains on 3 L of oxygen.? She expresses concern about who presents with anticoagulant after [facility]. She denies any fever or chills. She is tolerating her diet and moving her bowels. Objective Data Objective Data Vital Signs: Vital Signs Temp Pulse Resp BP Pulse Ox O2 Del Method O2 Flow Rate 97.7 F L 64 18 144/87 H 93 Nasal Cannula 3 08/23/22 03:08 08/23/22 07:30 08/23/22 07:30 08/23/22 03:08 08/23/22 07:27 08/23/22 07:27 08/23/22 07:27 Oxygen Flow Rate (L/min) 3 Oxygen Delivery Method Nasal Cannula Weight: 97.5 kg Body Mass Index (BMI) 36.8 Intake & Output: Intake and Output for Last 24 Hours 08/21/22 08/22/22 08/23/22 23:59 23:59 23:59 Intake Total 1370 / 1370 950 / 950 50 / 50 Output Total 38 / 38 Balance 1332 / 1332 950 / 950 50 / 50 Lab / Micro Data Result Diagrams: 08/23/22 05:40 08/23/22 05:40 Labs: Laboratory Results - last 24 hr 08/23/22 05:40: WBC 4.0 L, RBC 4.19 L, Hgb 12.8, Hct 40.4, MCV 96.4, MCH 30.5, MCHC 31.7 L, RDW Std Deviation 58.0 H, RDW Coeff of Toribio 16.4 H, Plt Count 235, MPV 8.8, Immature Gran % (Auto) 0.800, Neut % (Auto) 53.6, Lymph % (Auto) 20.4, [place] % (Auto) 14.1 H, Eos % (Auto) 10.1 H, Baso % (Auto) 1.0, Absolute Neuts (au to) 2.1, Absolute Lymphs (auto) 0.81 L, Nucleated RBC % 0 08/23/22 05:40: Sodium 143, Potassium 3.4 L, Chloride 107, Carbon Dioxide 28.0, Anion Gap 8, BUN 9, Creatinine 0.94, Estim Creat Clear Calc 41.22, Est GFR (MDRD) Af Amer 73, Est GFR (MDRD) Non-Af 61, BUN/Creatinine Ratio 9.5 L, Glucose 109 H, Calcium 8.5, Total Bilirubin 0.50, AST 17, ALT 21, Alkaline Phosphatase 280 H, Total Protein 6.5, Albumin 2.6 L, Globulin 3.9, Albumin/Globulin Ratio 0.7 L Micro: Microbiology 08/19/22 22:10 Sputum, Expectorated/Coughed Gram Stain - Final 08/19/22 22:10 Sputum, Expectorated/Coughed Respiratory Culture - Final Mixed normal respiratory gianna. No Streptococcus pneumoniae, beta-hemolytic Streptococcus or Staphylococcus aureus isolated. 08/19/22 22:05 Mucosa - Nasopharyngeal Respiratory Panel (PCR) - Final 08/19/22 22:03 Urine Catheter - Villalta Legionella Antigen - Final 08/19/22 22:03 Urine Catheter - Villalta Streptococcus pneumoniae Antigen (M - Final 08/19/22 22:00 Nasal Secretion SARS-CoV-2 Antigen (Rapid) - Final Physical Exam Narrative Physical exam: General: Alert, Oriented x3, Cooperative, obese, on 3 L of oxygen HEENT: Atraumatic Oral: Moist Mucosa Neck: Supple Lungs: Diminished to auscultation Cardiovascular: HS I+II, regular, no murmurs Abdomen: Abdominal binder in place, dressing clean and dry, AYAAN drain in place, bowel sounds present, soft, slightly tender to palpation, severe nneka intertrigo in bilateral groin or underneath both breasts Extremities: trace bilateral pedal edema Skin: No rashes, No breakdown Neurological: Grossly intact Psych/Mental Status: Appropriate Assessment & Plan Assessment/Plan (1) Respiratory failure with hypoxia: QUALIFIERS: Chronicity: acute Qualified Code(s): J96.01 - Acute respiratory failure with hypoxia (2) Incarcerated incisional hernia: PLAN: Plan 1. Acute hypoxic respiratory failure due to acute PE/acute right lower lobe pneumonia, improving slowly Currently on 3 L of oxygen CTA of the chest showed filling defect in the distal branches of the left upper lobe, consolidation of the right lower lobe with tiny pleural effusion Continue on Eliquis; will discuss with special education case manager/pharmacy to run her [employer] emilie for options Doppler ultrasound of both legs results are pending 2. Acute right lower lobe pneumonia, Off Zosyn, continue on Augmentin (started 08/23/22 am) to complete 10 days 3.POD #5 status post reduction and repair of incarcerated incisional hernia, possibility of bacterial translocation Patient's pain is fairly controlled Continue current pain regimen Follow-up on general surgery recommendations 4. Hypertension, controlled, continue amlodipine 5. DVT prophylaxis? on Eliquis Charges/Coding Visit Charges Inpatient E&M: 78186 Subs Hosp L2
[2022-08-23] MEDS: Potassium Chloride Oral Tablet 20 MEQ 60 MEQ PO (10:08)
--- NOTE | 2022-08-23 13:55 | CASEMGMT ---
KARY ELIZONDO called [facility] to ferraro check Eliquis. Copay for Eliquis $9.85, KARY ELIZONDO requested RX be placed on hold as patient is to discharge to SNF. KARY ELIZONDO updated hospitalist. CM will continue to follow this patient and plan for a safe discharge.
[2022-08-23] MEDS: Nystatin Powder 15gm Bottle 1 APPLIC TOPICAL ×2 (13:58→21:56)
[2022-08-23] MEDS: guaiFENesin 10 ML UDC (200MG/10ML) PO (22:00)
[2022-08-24] VITALS (8 sets, daily range): BP systolic 113–134; BP diastolic 57–69; PULSE 72–82; RESP 18–19; TEMP 36.3–37.1; O2SAT 91–95
[2022-08-24 04:59] LABS: Absolute Lymphocyte Count 0.83 X10^3/uL (0.83-4.51); Absolute Neutrophil Count 2.4 X10^3/uL (2.0-7.7); Basophil# 0.05 X10^3/uL; Basophil% 1.1 % (0-1); Eosinophil# 0.43 X10^3/uL; Eosinophils% 9.9 % (0-5); Hematocrit 39.7 % (37-47); Hemoglobin 12.9 g/dL (12.0-15.0); Lymphocyte # 0.83 X10^3/ul (0.83-4.51); Mean Corp Hgb Conc 32.5 g/dL (32-36); Mean Corpuscular Volume 95.4 fL (81-99); Mean Platelet Vol. 8.5 fl (6.2-12.0); Monocyte# 0.56 X10^3/uL; Monocyte% 12.8 % (0-10); NRBC Flagged by Analyzer 0 % (0-5); Neutrophil # 2.44 X10^3/uL (2.7-7.7); Neutrophil % 56.1 % (47-70); Platelet Count 218 K/mm3 (150-450); RBC Distribution Width CV 16.6 % (11.6-14.6); Red Blood Count 4.16 M/mm3 (4.2-5.4); White Blood Count 4.4 K/mm3 (4.4-11.0)
[2022-08-24] MEDS: Nystatin Powder 15gm Bottle 1 APPLIC TOPICAL ×2 (05:07→13:52)
[2022-08-24 06:05] LABS: ALB/GLOB Ratio 0.7 RATIO (0.9-2.4); AST(SGOT) 26 U/L (15-37); Alanine Aminotransfer ALT/SGPT 26 U/L (13-56); Albumin, Serum 2.5 g/dL (3.2-5.0); Alkaline Phosphatase 260 U/L (45-117); Anion Gap 8 (5-15); BUN 12 mg/dL (7-18); BUN/Creat Ratio 15.7 RATIO (10-20); Calcium,Total 8.8 mg/dL (8.5-10.1); Chloride 110 mmol/L (98-107); Creatinine, Serum 0.76 mg/dL (0.55-1.02); EST Glomerular Filtration Rate 77 mL/min (>60); Est Glom Filt Rate - Afr Amer 94 mL/min (>60); Estimated Creatinine Clearance 38.75 ml/min; Globulin 3.8 g/dL (2.2-4.2); Glucose 94 mg/dL (74-106); Potassium 3.9 mmol/L (3.5-5.1); Protein, Total 6.3 g/dL (6.4-8.2); Sodium Level 140 mmol/L (136-145)
[2022-08-24] MEDS: Ipratropium/Albuterol Sulfate 3 ML AMPUL.NEB INHALATION (07:19)
--- NOTE | 2022-08-24 07:48 | PN.HOSP_ITS ---
Subjective Subjective Patient is an 82-year-old female who underwent reduction and repair of an incarcerated incisional hernia on 08/17/[address] Enciso patient was found to be hypoxic.. Imaging studies demonstrated pneumonia as well as pulmonary embolism Objective Data Objective Data Vital Signs: Vital Signs Temp Pulse Resp BP Pulse Ox O2 Del Method O2 Flow Rate 97.8 F 72 18 134/65 H 94 Nasal Cannula 3 08/24/22 04:25 08/24/22 04:25 08/24/22 04:25 08/24/22 04:25 08/24/22 04:25 08/24/22 04:25 08/24/22 04:25 Oxygen Flow Rate (L/min) 3 Oxygen Delivery Method Nasal Cannula Weight: 97.5 kg Body Mass Index (BMI) 36.8 Intake & Output: Intake and Output for Last 24 Hours 08/22/22 08/23/22 08/24/22 23:59 23:59 23:59 Intake Total 950 / 950 950 / 950 Balance 950 / 950 950 / 950 Lab / Micro Data Result Diagrams: 08/24/22 04:30 08/24/22 04:30 Labs: Laboratory Results - last 24 hr 08/24/22 04:30: WBC 4.4, RBC 4.16 L, Hgb 12.9, Hct 39.7, MCV 95.4, MCH 31.0, MCHC 32.5, RDW Std Deviation 58.0 H, RDW Coeff of Toribio 16.6 H, Plt Count 218, MPV 8.5, Immature Gran % (Auto) 1.100 H, Neut % (Auto) 56.1, Lymph % (Auto) 19.0, [place] % (Auto) 12.8 H, Eos % (Auto) 9.9 H, Baso % (Auto) 1.1 H, Absolute Neuts (auto) 2.4, Absolute Lymphs (auto) 0.83, Nucleated RBC % 0 08/24/22 04:30: Sodium 140, Potassium 3.9, Chloride 110 H, Carbon Dioxide 22.0, Anion Gap 8, BUN 12, Creatinine 0.76, Estim Creat Clear Calc 38.75, Est GFR (MDRD) Af Amer 94, Est GFR (MDRD) Non-Af 77, BUN/Creatinine Ratio 15.7, Glucose 94, Calcium 8.8, Total Bilirubin 0.40, AST 26, ALT 26, Alkaline Phosphatase 260 H, Total Protein 6.3 L, Albumin 2.5 L, Globulin 3.8, Albumin/Globulin Ratio 0.7 L Micro: Microbiology 08/19/22 22:10 Sputum, Expectorated/Coughed Gram Stain - Final 08/19/22 22:10 Sputum, Expectorated/Coughed Respiratory Culture - Final Mixed normal respiratory gianna. No Streptococcus pneumoniae, beta-hemolytic Streptococcus or Staphylococcus aureus isolated. 08/19/22 22:05 Mucosa - Nasopharyngeal Respiratory Panel (PCR) - Final 08/19/22 22:03 Urine Catheter - Villalta Legionella Antigen - Final 08/19/22 22:03 Urine Catheter - Villalta Streptococcus pneumoniae Antigen (M - Final 08/19/22 22:00 Nasal Secretion SARS-CoV-2 Antigen (Rapid) - Final Physical Exam Narrative GENERAL: cooperative HEENT: Atraumatic; normocephalic EYES; Anicteric, Normal Conjunctiva NECK; supple, normal thyroid, RESPIRATORY: Diminished to auscultation CARDIOVASCULAR: Regular S1 S2, GI: soft, normoactive bowel sounds, : No Renal angle tenderness; EXTREMITIES: No edema, no clubbing, MUSCULOSKELETAL: no muscle wasting NEURO: Awake; no lateralizing signs. SKIN: No Rash PSYCH; Flat affect Assessment & Plan Assessment/Plan (1) Respiratory failure with hypoxia: QUALIFIERS: Chronicity: acute Qualified Code(s): J96.01 - Acute respiratory failure with hypoxia (2) Incarcerated incisional hernia: PLAN: Plan Patient is an 82-year-old female who underwent reduction and repair of an incarcerated incisional hernia on 08/17/[address] Enciso patient was found to be hypoxic.. Imaging studies demonstrated pneumonia as well as pulmonary embolism 1. Acute pulmonary embolism ? Patient currently on Eliquis 2. Acute right lower lobe pneumonia ? Patient initially treated with Zosyn which has since been de-escalated to Augmentin we will continue 3. Status postreduction and repair of an incarcerated incisional hernia ? Procedure performed by Dr. Enciso on 08/17/2022 postoperative management r egarding pain management PT OT as well as diet defer to primary service 4. Hypertension - Blood pressure controlled, home medications continued with dose adjustment as needed 5. Class II obesity with BMI of 36.9 ? Weight loss advised Charges/Coding Visit Charges Inpatient E&M: 46554 Subs Hosp L2
[2022-08-24] MEDS: Docusate Sodium 100 MG Capsule PO (09:15)
[2022-08-24] MEDS: APIXABAN 5 MG TABLET 10 MG PO (09:15)
[2022-08-24] MEDS: amLODIPine 5 MG Tablet PO (09:15)
[2022-08-24] MEDS: Amox/Clavulanate 875 MG Tablet PO (09:15)
[2022-08-24] MEDS: Fluconazole 100 MG Tablet PO (09:16)
--- NOTE | 2022-08-24 10:22 | PCM.TXEXTCAR ---
Diet Diet Order/Speech Therapy: 08/22/22 08:57 Diet: Regular - General Type of Dietary Supplement:: Ensure Clear Is pt able to select menu?: Yes Diet Comments: 120ml ensure clear TID w/ meals Wound(s) ABDOMEN: Wound Type: Surgical Incision Therapies Physical Therapy: Eval and Treat Occupational Therapy: Eval and Treat Problem/Diagnosis (1) Respiratory failure with hypoxia: Status: Acute Code(s): J96.91 - Respiratory failure, unspecified with hypoxia (2) Incarcerated incisional hernia: Status: Acute Code(s): K43.0 - Incisional hernia with obstruction, without gangrene Plan Patient is an 82-year-old female who underwent reduction and repair of an incarcerated incisional hernia on 08/17/[address] Enciso patient was found to be hypoxic.. Imaging studies demonstrated pneumonia as well as pulmonary embolism 1. Acute pulmonary embolism ? Patient currently on Eliquis 2. Acute right lower lobe pneumonia ? Patient initially treated with Zosyn which has since been de-escalated to Augmentin we will continue 3. Status postreduction and repair of an incarcerated incisional hernia ? Procedure performed by Dr. Enciso on 08/17/2022 postoperative management regarding pain management PT OT as well as diet defer to primary service 4. Hypertension - Blood pressure controlled, home medications continued with dose adjustment as needed 5. Class II obesity with BMI of 36.9 ? Weight loss advised Allergies/Procedures Done in Hospital Allergies rosuvastatin [From Crestor] Allergy (Severe, Verified 08/17/22 09:13) stomach pains shellfish derived Allergy (Severe, Verified 08/17/22 09:13) MOUTH SORES sulfamethoxazole [From Bactrim] Allergy (Unknown, Verified 08/17/22 09:13) unknown trimethoprim [From Bactrim] Allergy (Unknown, Verified 08/17/22 09:13) unknown Type of Care/Length of Stay Estimated LOS: Convalescent Care Less Than 30 days Type of Care Needed: Skilled Rehab Potential: Good Prognosis: Good Additional Orders/Day of Discharge Day of Discharge: 08/24/22 Dietary and Speech Recommendations Dietitian Recommendations/Changes: Recommend advance PO as tolerated to Transitional Diet. Will add 120 ml Ensure Clear TID w/ clear liquid trays. Additional ONS as needed once diet advanced from clear liquids. Discharge Plan Admission Admit Date/Time: 08/17/22 19:55 Attending Provider: Mendez Enciso Primary Care Provider: Mio Juarez Consulting Providers: Faustino Brewer Discharge Orders/Prescriptions Prescriptions: New apixaban 5 mg tablet See Taper PO BID 37 Days Qty: 88 0RF Taper: Apixaban VTE Treatment 10 mg TWICE A DAY for 7 Days 5 mg TWICE A DAY for 30 Days acetaminophen [Tylenol] 325 mg Tablet 650 mg PO Q6H PRN PRN (Reason: PAIN 1-10) Qty: 0 0RF albuterol sulfate 2.5 mg /3 mL (0.083 %) Solution For Nebulization 2.5 mg inhalation Q2H PRN PRN (Reason: Dyspnea, wheezing) Qty: 0 0RF guaifenesin 100 mg/5 mL Liquid 10 ml PO Q4H PRN PRN (Reason: cough) Qty: 0 0RF docusate sodium 100 mg Capsule 100 mg PO DAILY Qty: 0 0RF nystatin [Nyamyc] 100,000 unit/gram Powder 1 applic topical TID Qty: 0 0RF Protocol: *Topical Application Instructions APPLICATION INSTRUCTIONS: under breasts bilateral and intertriginous(groin areas) amoxicillin-pot clavulanate 875-125 mg Tablet 875 mg PO BID Qty: 14 0RF Continued (DME) Handicap Placard See Rx Instructions .ROUTE .MEDSUPPLY Qty: 1 0RF Rx Instructions: As directed, length of time 3 years multivitamin Tablet 1 tab PO DAILY zinc sulfate 50 mg zinc (220 mg) Tablet 50 mg PO QODAY ascorbic acid (vitamin C) [Vitamin C] 500 mg Tablet 500 mg PO QODAY amlodipine 5 mg tablet 5 mg PO DAILY Referrals / Follow Up: Mio Juarez MD [Primary Care Provider] - Disposition Disposition (needs filled in before D/C Order can be placed): Home Health Service (1) Respiratory failure with hypoxia Qualifiers: Chronicity: acute Qualified Code(s): J96.01 - Acute respiratory failure with hypoxia
--- NOTE | 2022-08-24 10:46 | NURSING ---
talked with ER and Security. aware they have not found watch pt states has lost since surgery on 08/17.
--- NOTE | 2022-08-24 13:23 | CASEMGMT ---
Discharge Business Support Administrator Jessie from [place] reached out. Patient has been accepted. JAC Fabian notified. Corie SOLORZANO Brand Marketing Intern
--- NOTE | 2022-08-24 14:23 | CASEMGMT ---
Social Work SW informed pt of acceptance. Pt declined this SW to inform family. Completed 7000 convalescent form in [facility] system. Updated pt dr's of acceptance. Faxed discharge orders to [facility]. Placed copies of orders on chart and placed originals in envelope to go with pt. Covid pending. Transportation to be set up soon. NAJMA Auguste
--- NOTE | 2022-08-24 14:53 | CASEMGMT ---
Discharge Immigration Judge This policy writer sales set up transportation with [facility]. linker up time is 4:30pm. Nursing staff and JAC Fabian made aware. Corie SOLORZANO Hand Sewer
--- NOTE | 2022-08-24 15:12 | PHA.DC.MR ---
Pharmacy Service has performed discharge medication reconciliation for this patient. The patient's discharge medication list was reviewed for discrepancies and discrepancies were resolved. Home Medications Handicap Placard #1 ea 04/14/22 amlodipine 5 mg tablet 5 mg PO DAILY blood pressure 08/17/22 ascorbic acid (vitamin C) 500 mg tablet (Vitamin C) 500 mg PO QODAY supplement 08/17/22 multivitamin 1 tab PO DAILY health maintenance 08/17/22 zinc sulfate 50 mg zinc (220 mg) tablet 50 mg PO QODAY supplement 08/17/22 apixaban 5 mg tablet See Taper PO BID 37 days #88 tabs 08/21/22 acetaminophen 325 mg tablet (Tylenol) 650 mg PO Q6H PRN PRN PAIN 1-10 #0 tabs 08/24/22 albuterol sulfate 2.5 mg/3 mL (0.083 %) solution for nebulization 2.5 mg (3 mL) inhalation Q2H PRN PRN Dyspnea, wheezing #0 mL 08/24/22 amoxicillin 875 mg-potassium clavulanate 125 mg tablet 875 mg PO BID #14 tabs 08/24/22 docusate sodium 100 mg capsule 100 mg PO DAILY #0 caps 08/24/22 guaifenesin 100 mg/5 mL oral liquid 10 ml PO Q4H PRN PRN cough #0 mL 08/24/22 nystatin 100,000 unit/gram topical powder (Nyamyc) 1 applic topical TID #0 grams 08/24/22
--- NOTE | 2022-08-24 15:47 | NURSING ---
Addendum entered by Fatoumata Low 08/24/22 15:53: report called to [place] Original Note: report called to fritz vilchis, transport to pick-up@[phone]
--- NOTE | 2022-08-24 16:38 | NURSING ---
[facility] for transport to [facility], transferred with belongings
--- NOTE | 2022-08-28 07:19 | PCM.DC.SUM ---
Providers Date of Admission: 08/17/22 Primary Care Physician: Dr. Mio Juarez MD Consultations 08/19/22 14:03 Consult: Hospitalist Routine Consulting Provider: Mukesh Waterman Reason for Consult: hypoxia EMERGENT Consult: No MD Notified: Yes Date Notified: 08/19/22 Time Notified: 14:04 Method of Notification: Text Reason For Visit: INCARCERATED INCISIONAL HERNIA Diagnosis Discharge Diagnosis (1) Respiratory failure with hypoxia: Status: Acute Code(s): J96.91 - Respiratory failure, unspecified with hypoxia Qualifiers: Chronicity: acute Qualified Code(s): J96.01 - Acute respiratory failure with hypoxia (2) Incarcerated incisional hernia: Status: Acute Code(s): K43.0 - Incisional hernia with obstruction, without gangrene Plan: Diet has been advanced. Moving her bowels. Okay for discharge on Wednesday. Medications at Discharge Home Medications Handicap Placard #1 ea 04/14/22 amlodipine 5 mg tablet 5 mg PO DAILY blood pressure 08/17/22 ascorbic acid (vitamin C) 500 mg tablet (Vitamin C) 500 mg PO QODAY supplement 08/17/22 multivitamin 1 tab PO DAILY health maintenance 08/17/22 zinc sulfate 50 mg zinc (220 mg) tablet 50 mg PO QODAY supplement 08/17/22 apixaban 5 mg tablet See Taper PO BID 37 days #88 tabs 08/21/22 acetaminophen 325 mg tablet (Tylenol) 650 mg PO Q6H PRN PRN PAIN 1-10 #0 tabs 08/24/22 albuterol sulfate 2.5 mg/3 mL (0.083 %) solution for nebulization 2.5 mg (3 mL) inhalation Q2H PRN PRN Dyspnea, wheezing #0 mL 08/24/22 amoxicillin 875 mg-potassium clavulanate 125 mg tablet 875 mg PO BID #14 tabs 08/24/22 docusate sodium 100 mg capsule 100 mg PO DAILY #0 caps 08/24/22 guaifenesin 100 mg/5 mL oral liquid 10 ml PO Q4H PRN PRN cough #0 mL 08/24/22 nystatin 100,000 unit/gram topical powder (Nyamyc) 1 applic topical TID #0 grams 08/24/22 Hospital Course Operations - (Repair of incarcerated incisional hernia) Summary of Care Provided Hospital Course: ELA JOHNSON, is a 82 F who presents with abdominal pain that began last night.? Patient states it began rather suddenly.? Patient states that it does come and go.? Patient describes it as cramping.? Patient states it is mostly over the epigastric and left upper quadrant areas.? Patient states nothing makes it better nothing makes it worse.? Patient admits to some nausea and vomiting.? Patient states her emesis was just stomach contents.? Patient denies any hematemesis or coffee-ground emesis.? Patient denies any diarrhea, melena, or hematochezia.? Patient denies any dysuria, hematuria, or frequency. CT scan?: Large anterior ventral hernia containing colon as well as small bowel loops.? There is evidence of? small bowel dilatation proximally to the level of the hernia in keeping with a small bowel obstruction. Multiple gallstones.? Patient underwent reduction and repair of an incarcerated incisional hernia. Postoperatively she did have some hypoxia and was noted to have a pulmonary embolus on CT scan and was subsequently started on anticoagulation. Her hospital course progressed With improvement. Her shortness of breath did get better 1.? Acute pulmonary embolism ? Patient currently on Eliquis 2.? Acute right lower lobe pneumonia ? Patient initially treated with Zosyn which has since been de-escalated to Augmentin we will continue 3.? Status postreduction and repair of an incarcerated incisional hernia ? Procedure performed by Dr. Enciso on 08/17/2022 postoperative management regarding pain management PT OT as well as diet defer to primary service 4.? Hypertension - Blood pressure controlled, home medications continued with dose adjustment as needed 5.? Class II obesity with BMI of 36.9 ? Weight loss advised. Weight / BMI Weight Weight: 214 lb 15.211 oz Body Mass Index (BMI) 36.8 ABG / Lab / Microbiology Data Result Diagrams: 08/24/22 04:30 08/24/22 04:30 Microbiology: Microbiology 08/24/22 14:30 Nasal Secretion SARS-CoV-2 Antigen (Rapid) - Final 08/19/22 22:10 Sputum, Expectorated/Coughed Gram Stain - Final 08/19/22 22:10 Sputum, Expectorated/Coughed Respiratory Culture - Final Mixed normal respiratory gianna. No Streptococcus pneumoniae, beta-hemolytic Streptococcus or Staphylococcus aureus isolated. 08/19/22 22:05 Mucosa - Nasopharyngeal Respiratory Panel (PCR) - Final 08/19/22 22:03 Urine Catheter - Villalta Legionella Antigen - Final 08/19/22 22:03 Urine Catheter - Villalta Streptococcus pneumoniae Antigen (M - Final 08/19/22 22:00 Nasal Secretion SARS-CoV-2 Antigen (Rapid) - Final Meaningful Use Info Meaningful Use Diagnoses (Choose all that apply): VTE VTE Anticoag overlap given w/in hospital stay or rx'd at mt?: Yes Pt receive overlap for 5 days?: Yes Discharge Plan Admission Admit Date/Time: 08/17/22 19:55 Attending Provider: Mendez Enciso Primary Care Provider: Mio Juarez Consulting Providers: Faustino Brewer Discharge Orders/Prescriptions Prescriptions: New apixaban 5 mg tablet See Taper PO BID 37 Days Qty: 88 0RF Taper: Apixaban VTE Treatment 10 mg TWICE A DAY for 7 Days 5 mg TWICE A DAY for 30 Days acetaminophen [Tylenol] 325 mg Tablet 650 mg PO Q6H PRN PRN (Reason: PAIN 1-10) Qty: 0 0RF albuterol sulfate 2.5 mg /3 mL (0.083 %) Solution For Nebulization 2.5 mg inhalation Q2H PRN PRN (Reason: Dyspnea, wheezing) Qty: 0 0RF guaifenesin 100 mg/5 mL Liquid 10 ml PO Q4H PRN PRN (Reason: cough) Qty: 0 0RF docusate sodium 100 mg Capsule 100 mg PO DAILY Qty: 0 0RF nystatin [Nyamyc] 100,000 unit/gram Powder 1 applic topical TID Qty: 0 0RF Protocol: *Topical Application Instructions APPLICATION INSTRUCTIONS: under breasts bilateral and intertriginous(groin areas) amoxicillin-pot clavulanate 875-125 mg Tablet 875 mg PO BID Qty: 14 0RF Continued (DME) Handicap Placard See Rx Instructions .ROUTE .MEDSUPPLY Qty: 1 0RF Rx Instructions: As directed, length of time 3 years multivitamin Tablet 1 tab PO DAILY zinc sulfate 50 mg zinc (220 mg) Tablet 50 mg PO QODAY ascorbic acid (vitamin C) [Vitamin C] 500 mg Tablet 500 mg PO QODAY amlodipine 5 mg tablet 5 mg PO DAILY Referrals / Follow Up: Mendez Enciso MD [Med Staff - Active Staff] - Within 2 Weeks Mio Juarez MD [Primary Care Provider] - Within 2 Weeks Disposition Disposition (needs filled in before D/C Order can be placed): Care Home Facility
== END 2022-08-24 16:30 | DRG 353 ==
LOC: ED 09:43 → SDC 15:19 → MS3 08-18 03:06 → SDC 08-18 10:30
PROVIDERS: Family Medicine; Internal Medicine; Admitting Provider Surgery; Emergency Provider Emergency Medicine; PCP Internal Medicine; Visit Provider Surgery
PROC: 0WQF0ZZ Repair Abdominal Wall, Open Approach (ICD-10-PCS; principal; 2022-08-17 16:00)
DX: K43.0 Incisional hernia with obstruction, without gangrene (principal); J96.01 Acute respiratory failure with hypoxia; I26.99 Other pulmonary embolism without acute cor pulmonale; J18.9 Pneumonia, unspecified organism; J98.11 Atelectasis; A04.9 Bacterial intestinal infection, unspecified; E66.01 Morbid (severe) obesity due to excess calories; I10 Essential (primary) hypertension; R51.9 Headache, unspecified; Z90.710 Acquired absence of both cervix and uterus; Z79.01 Long term (current) use of anticoagulants; Z79.899 Other long term (current) drug therapy; Z86.16 Personal history of COVID-19; Z68.36 Body mass index [BMI] 36.0-36.9, adult
CPT/HCPCS: 36415; 71045; 71275; 74177; 80048; 80053; 81001; 83690; 83880; 84145; 85025; 87070; 87205; 87426; 87449; 87633; 87811; 88302; 93005; 93970; 94640; 94762; 97110; 97116; 97162; 97166; 97530; 97535; 99251; 99284; J7030; J7120; Q9967; A4216; G0463; J1940; J2405; J3490

== ENCOUNTER 2022-09-25 15:48 | Inpatient (IN) | payer MEDICARE, BC, SELFPAY ==
[2022-09-25] VITALS (10 sets, daily range): BP systolic 118–148; BP diastolic 50–64; PULSE 81–91; RESP 14–35; TEMP 35.7–37.9; O2SAT 88–97; BMI 32.8; BMI 33.9
--- NOTE | 2022-09-25 16:05 | EKG12_ITS ---
Test Reason : PALP Blood Pressure : / mmHG Vent. Rate : 093 BPM Atrial Rate : 093 BPM P-R Int : 168 ms QRS Dur : 090 ms QT Int : 360 ms P-R-T Axes : 044 -36 056 degrees QTc Int : 447 ms Normal sinus rhythm Left axis deviation Abnormal ECG Confirmed by ELENITA SHELTON, DAVE ([id number]), medical editor EMELINA CORREA ([id number]) on 09/29/2022 7:28:41 AM Referred By: Confirmed By:DAVE KWONG MD
--- NOTE | 2022-09-25 16:09 | EX.ED.DYSGE1 ---
HPI <MIGUEL ANGEL Lyle - Last Filed: 09/25/22 18:46> History of Present Illness Chief Complaint: Palpitations Narrative Narrative: 82-year-old female with history of hypertension, hyperlipidemia, history of blood clots on Eliquis presents the emergency department with fever and chills. Patient had a double hernia repair by Dr. Enciso here on August 10, 2022. Patient states she was at a lunch today, this is the first she has left her house since the surgery. Patient states that she developed the sudden onset of rigors and chills. She then felt hot to the touch. Because she felt ill she is here for evaluation. She denies any other injury. PFS <MIGUEL ANGEL Lyle - Last Filed: 09/25/22 18:46> [facility]LY [facility] Medical History Bilateral lower extremity edema Debility Health care maintenance History of aneurysm History of COVID-19 History of pneumonia History of skin cancer History of uterine cancer Hypertension Home Medications amlodipine 5 mg tablet 5 mg PO DAILY blood pressure 08/17/22 [History Last Taken 09/24/22] apixaban 5 mg tablet See Taper PO BID 37 days #88 tabs 08/21/22 [Rx Last Taken 09/24/22] nystatin 100,000 unit/gram topical powder (Nyamyc) 1 applic topical TID #0 grams 08/24/22 [Rx Last Taken 09/25/22] Allergy/AdvReac Type Severity Reaction Status Date / Time rosuvastatin [From Crestor] Allergy Severe stomach Verified 09/25/22 15:49 pains shellfish derived Allergy Severe MOUTH SORES Verified 09/25/22 15:49 sulfamethoxazole Allergy Unknown unknown Verified 09/25/22 15:49 [From Bactrim] trimethoprim [From Bactrim] Allergy Unknown unknown Verified 09/25/22 15:49 Family History Son Alcoholism Grandmother No problems noted. Mother Heart disease Hypertension CVA (cerebral vascular accident) Father Cancer throat Surgical History History of hysterectomy Hx of endovascular stent graft for abdominal aortic aneurysm Social History Smoking Status: Never smoker alcohol intake: never substance use type: does not use what type of physical activity do you participate in: walking and aerobics ROS <MIGUEL ANGEL Lyle - Last Filed: 09/25/22 18:46> ROS ED ROS Narrative Constitutional: Negative for weight loss. Positive fever, chills, weakness Eyes: Negative for vision loss, vision change, double vision ENT: Negative for any sore throat, ear pain, congestion Cardiovascular: Negative for any chest pain, tightness, palpitations Respiratory: Negative for any cough, sputum production, hemoptysis, dyspnea, dyspnea on exertion, orthopnea Gastrointestinal: Negative for any nausea, vomiting, diarrhea, constipation, blood in stool, blood in vomit. Positive for abdominal pain : Negative for any urinary frequency, dysuria, retention, blood in urine Muscle skeletal: Negative for any muscle joint pain, stiffness, myalgias, arthralgias, neck pain, back pain Neurological: Negative for any headache, syncope, numbness or tingling, dizziness Skin: Negative for any rashes, lumps, itching, abrasions, lacerations Psychiatric: Negative for any depression, anxiety, stress, suicidal ideation, homicidal ideation Hematologic: Negative for any easy bruising, excessive bruising, easy bleeding Allergies: Negative for any eczema, hives, rash EXAM <MIGUEL ANGEL Lyle - Last Filed: 09/25/22 18:46> Physical Exam Narrative Exam Narrative: Vital signs reviewed. Patient oral temp was 101. Patient feels warm to the touch. HEET: Head normocephalic atraumatic, TMs clear bilaterally. Posterior pharynx is clear, dry mucous membranes. Nares clear bilaterally. Neck: Supple with no lymphadenopathy or tenderness. No signs of meningismus, negative jolt sign. Cardiac: Regular rate and rhythm no murmurs gallops or rubs, equal peripheral pulses bilaterally. Respiratory: Lungs clear to auscultation bilaterally. No chest tenderness. Abdomen: Soft, nondistended. No abdominal bruit or pulsatile masses. No hepatosplenomegaly. Patient has significant cellulitis to the left lower quadrant. Patient does have surgical scars in her abdomen since the August 10, these appear intact. No gross drainage. Patient is tender to the touch. Patient's cellulitis takes over the entire left lower quadrant as well as to the left groin. Extremities: No peripheral edema, no signs of gross trauma or deformity. Active full range of motion of all extremities. Neuro: Cranial nerves II through XII intact, no focal neurological deficits. Skin: Clean dry and intact with no rash, purpura, petechiae, vesicles or pustules. Backs/flank: No CVA tenderness, no midline spinal tenderness, no deformity. Psych: Normal mood and affect. No SI, HI or acute psychosis. Const Vital Signs: 09/25/22 15:49 09/25/22 15:48 09/25/22 16:18 Temperature 96.2 F L 100.3 F H Temperature Source Temporal Oral Pulse Rate 81 Respiratory Rate 14 Blood Pressure 148/50 H Blood Pressure Mean 82 Pulse Ox 97 88 Oxygen Delivery Method Room Air Room Air Oxygen Flow Rate (L/min) 09/25/22 17:35 Temperature 99.5 F H Temperature Source Oral Pulse Rate 91 Respiratory Rate 35 H Blood Pressure 134/64 H Blood Pressure Mean 87 Pulse Ox 92 Oxygen Delivery Method Nasal Cannula Oxygen Flow Rate (L/min) 2 HEENT Reports dry mucous membranes Mouth ED: Yes dry mucous membranes Mouth: dry mucous membranes <Dr. Jo Flores DO - Last Filed: 09/25/22 18:36> Physical Exam Const Vital Signs: 09/25/22 15:49 09/25/22 15:48 09/25/22 16:18 Temperature 96.2 F L 100.3 F H Temperature Source Temporal Oral Pulse Rate 81 Respiratory Rate 14 Blood Pressure 148/50 H Blood Pressure Mean 82 Pulse Ox 97 88 Oxygen Delivery Method Room Air Room Air Oxygen Flow Rate (L/min) 09/25/22 17:35 Temperature 99.5 F H Temperature Source Oral Pulse Rate 91 Respiratory Rate 35 H Blood Pressure 134/64 H Blood Pressure Mean 87 Pulse Ox 92 Oxygen Delivery Method Nasal Cannula Oxygen Flow Rate (L/min) 2 MDM <MIGUEL ANGEL Lyle - Last Filed: 09/25/22 18:46> MDM Lab Data Labs: Laboratory Results - last 24 hr 09/25/22 09/25/22 09/25/22 16:18 16:18 16:18 WBC 10.3 RBC 4.68 Hgb 14.8 Hct 44.5 MCV 95.1 MCH 31.6 MCHC 33.3 RDW Std Deviation 54.4 H RDW Coeff of Toribio 15.5 H Plt Count 213 MPV 9.0 Immature Gran % (Auto) 0.400 Neut % (Auto) 87.6 H Lymph % (Auto) 5.0 L [place] % (Auto) 6.0 Eos % (Auto) 0.7 Baso % (Auto) 0.3 Absolute Neuts (auto) 9.0 H Absolute Lymphs (auto) 0.51 L Nucleated RBC % 0 Differential Comment SEE COMMENT Platelet Estimate ADEQUATE RBC Morphology N CHROM Anisocytosis RARE Macrocytosis RARE PT 13.4 INR 1.1 APTT 27.0 Sodium 144 Potassium 4.1 Chloride 110 H Carbon Dioxide 28.0 Anion Gap 6 BUN 20 H Creatinine 1.20 H Estim Creat Clear Calc 32.29 Est GFR (MDRD) Af Amer 56 L Est GFR (MDRD) Non-Af 46 L BUN/Creatinine Ratio 16.7 Glucose 123 H Calcium 9.8 Total Bilirubin 0.60 AST 21 ALT 25 Alkaline Phosphatase 205 H Total Protein 7.6 Albumin 3.5 Globulin 4.1 Albumin/Globulin Ratio 0.9 Urine Color Urine Clarity Urine pH Ur Specific Fa[place] Urine Protein Urine Glucose (UA) Urine Ketones Urine Occult Blood Urine Nitrite Urine Bilirubin Urine Urobilinogen Ur Leukocyte Esterase Urine RBC Urine WBC Ur Squamous Epith Cells Urine Bacteria Urine Mucus 09/25/22 16:30 WBC RBC Hgb Hct MCV MCH MCHC RDW Std Deviation RDW Coeff of Toribio Plt Count MPV Immature Gran % (Auto) Neut % (Auto) Lymph % (Auto) [place] % (Auto) Eos % (Auto) Baso % (Auto) Absolute Neuts (auto) Absolute Lymphs (auto) Nucleated RBC % Differential Comment Platelet Estimate RBC Morphology Anisocytosis Macrocytosis PT INR APTT Sodium Potassium Chloride Carbon Dioxide Anion Gap BUN Creatinine Estim Creat Clear Calc Est GFR (MDRD) Af Amer Est GFR (MDRD) Non-Af BUN/Creatinine Ratio Glucose Calcium Total Bilirubin AST ALT Alkaline Phosphatase Total Protein Albumin Globulin Albumin/Globulin Ratio Urine Color Yellow Urine Clarity Cloudy Urine pH 6.0 Ur Specific Fa[place] 1.020 Urine Protein 15 H Urine Glucose (UA) Normal Urine Ketones 5 H Urine Occult Blood 10 H Urine Nitrite Positive H Urine Bilirubin Negative Urine Urobilinogen 1 H Ur Leukocyte Esterase 500 H Urine RBC 0 SEEN Urine WBC 25-50 SEEN Ur Squamous Epith Cells 0-5 SEEN Urine Bacteria 4+ Urine Mucus 0 SEEN Radiography Diagnostic Testing: Clinical Impression(s) from Imaging Studies Abdomen/Pelvis CT 09/25/22 17:20 IMPRESSION: 1. No complications following abdominal wall hernia repair. 2. No other acute or inflammatory disease or bowel obstruction. 3. Stable abdominal aorta as above. Electronically Signed: Andres Salvador MD at 18:10 EST , Chest X-Ray 09/25/22 17:26 IMPRESSION: Question of intravenous airspace disease in the retrocardiac region of the left lower lobe. Suggest obtaining a lateral view for confirmation of suspicion/further characterization. Enlarged benigno as above. Electronically Signed: Andres Salvador MD at 17:59 EST , EKG Normal sinus rhythm, rate 93 bpm.: Attestation: I personally reviewed and interpreted this EKG as follows: Interpretation: Sinus Rhythm Comments: Normal sinus rhythm, rate 93 bpm, SD 168 ms, QRS duration 90 ms, no acute ST elevation, no acute infarct noted. Treatment and Re-Evaluation Narrative: Patient arrives in no respiratory distress, patient is febrile, having obvious rigors. Patient was febrile here, did receive a septic work-up. Physical examination was consistent with abscess to the left lower abdomen, secondary to the recent surgery, CT scan will be done to rule out any abscess formation. Patient CBC showed no leukocytosis however there was some left shift. Patient's chemistries show slight renal dysfunction with a creatinine of 1.2, patient's lactic acid is not resulted at this time. Secondary to the obvious cellulitis, patient was placed on IV Zosyn, IV vancomycin after blood cultures were drawn. Patient's urinalysis was positive for infection. There was 4+ bacteria 25-50 white blood cells, 500 leukocytes positive nitrites. Zosyn will cover this UTI as well as a urine culture will be sent. Patient did receive a CT scan of the abdomen pelvis IV contrast, this shows no acute process. Patient will be admitted to the hospital. <Dr. Jo Flores, DO - Last Filed: 09/25/22 18:36> [facility] Narrative Medical decision making narrative: I have personally performed a face to face assessment of the patient and have reviewed the SILAS Note. I performed a substantive portion of the visit including all aspects of the following. My morales findings include: History is [patient presents with chills that started this afternoon. Patient states that she had double hernia surgery on August [address] Mendez Enciso. Patient had been doing well until today. She denies urinary symptoms. She denies chest pain or shortness of breath. Patient denies abdominal pain.] Exam is [HEENT-PERRLA, EOMI. Cranial nerves II through XII grossly intact. TMs clear. Mucous membranes moist. No adenopathy. Cardiovascular-regular rate and rhythm without murmur or ectopy Lungs-clear to auscultation, chest wall stable without crepitus or subcu emphysema Abdomen-normoactive bowel sounds, soft. Patient has diffuse erythema to the lower abdomen and perineum to the left lower quadrant. Area is tender to palpation. There is mild guarding. There is no rebound, rigidity, or peritoneal signs. Extremities-intact ?4, normal range of motion, normal pulses, atraumatic] Medical Decison Making [patient was started on Zosyn and vancomycin IV. Patient was noted to have a UTI. White blood cell count was normal but she did have a left shift. Chemistries are unremarkable. CT scan of the abdomen pelvis showed no complications from prior surgery. This point Case was discussed with hospitalist will evaluate patient for admission for UTI and cellulitis of the abdomen] Other additions or changes: [None] Lab Data Attestation: I reviewed the patient's lab results. Labs: Laboratory Results - last 24 hr 09/25/22 09/25/22 09/25/22 16:18 16:18 16:18 WBC 10.3 RBC 4.68 Hgb 14.8 Hct 44.5 MCV 95.1 MCH 31.6 MCHC 33.3 RDW Std Deviation 54.4 H RDW Coeff of Toribio 15.5 H Plt Count 213 MPV 9.0 Immature Gran % (Auto) 0.400 Neut % (Auto) 87.6 H Lymph % (Auto) 5.0 L [place] % (Auto) 6.0 Eos % (Auto) 0.7 Baso % (Auto) 0.3 Absolute Neuts (auto) 9.0 H Absolute Lymphs (auto) 0.51 L Nucleated RBC % 0 Differential Comment SEE COMMENT Platelet Estimate ADEQUATE RBC Morphology N CHROM Anisocytosis RARE Macrocytosis RARE PT 13.4 INR 1.1 APTT 27.0 Sodium 144 Potassium 4.1 Chloride 110 H Carbon Dioxide 28.0 Anion Gap 6 BUN 20 H Creatinine 1.20 H Estim Creat Clear Calc 32.29 Est GFR (MDRD) Af Amer 56 L Est GFR (MDRD) Non-Af 46 L BUN/Creatinine Ratio 16.7 Glucose 123 H Calcium 9.8 Total Bilirubin 0.60 AST 21 ALT 25 Alkaline Phosphatase 205 H Total Protein 7.6 Albumin 3.5 Globulin 4.1 Albumin/Globulin Ratio 0.9 Urine Color Urine Clarity Urine pH Ur Specific [place] Urine Protein Urine Glucose (UA) Urine Ketones Urine Occult Blood Urine Nitrite Urine Bilirubin Urine Urobilinogen Ur Leukocyte Esterase Urine RBC Urine WBC Ur Squamous Epith Cells Urine Bacteria Urine Mucus 09/25/22 16:30 WBC RBC Hgb Hct MCV MCH MCHC RDW Std Deviation RDW Coeff of Toribio Plt Count MPV Immature Gran % (Auto) Neut % (Auto) Lymph % (Auto) [place] % (Auto) Eos % (Auto) Baso % (Auto) Absolute Neuts (auto) Absolute Lymphs (auto) Nucleated RBC % Differential Comment Platelet Estimate RBC Morphology Anisocytosis Macrocytosis PT INR APTT Sodium Potassium Chloride Carbon Dioxide Anion Gap BUN Creatinine Estim Creat Clear Calc Est GFR (MDRD) Af Amer Est GFR (MDRD) Non-Af BUN/Creatinine Ratio Glucose Calcium Total Bilirubin AST ALT Alkaline Phosphatase Total Protein Albumin Globulin Albumin/Globulin Ratio Urine Color Yellow Urine Clarity Cloudy Urine pH 6.0 Ur Specific [place] 1.020 Urine Protein 15 H Urine Glucose (UA) Normal Urine Ketones 5 H Urine Occult Blood 10 H Urine Nitrite Positive H Urine Bilirubin Negative Urine Urobilinogen 1 H Ur Leukocyte Esterase 500 H Urine RBC 0 SEEN Urine WBC 25-50 SEEN Ur Squamous Epith Cells 0-5 SEEN Urine Bacteria 4+ Urine Mucus 0 SEEN Radiography Chest X-Ray - ED: 1 View Diagnostic Testing: Clinical Impression(s) from Imaging Studies Abdomen/Pelvis CT 09/25/22 17:20 IMPRESSION: 1. No complications following abdominal wall hernia repair. 2. No other acute or inflammatory disease or bowel obstruction. 3. Stable abdominal aorta as above. Electronically Signed: Andres Salvador MD at 18:10 EST , Chest X-Ray 09/25/22 17:26 IMPRESSION: Question of intravenous airspace disease in the retrocardiac region of the left lower lobe. Suggest obtaining a lateral view for confirmation of suspicion/further characterization. Enlarged benigno as above. Electronically Signed: Andres Salvador MD at 17:59 EST , 1 view chest x-ray obtained interpreted by myself as increased markings left lower lobe otherwise no acute disease process. Radiology felt there was questionable retrocardiac disease left lower lobe and enlargement of the benigno. Discharge Plan Dx/Rx/DC Orders Clinical Impression: Abdominal wall cellulitis, Fever, Acute UTI Disposition Disposition: Acute Care Hospital [facility]
[2022-09-25] MEDS: Acetaminophen 500 MG Tablet 1000 MG PO (16:22)
[2022-09-25] MEDS: 0.9% Normal Saline 1,000 ML 999 ML IV (16:22)
[2022-09-25 16:37] LABS: Mucous, Urine 0 SEEN /hpf (<or=2+); Red Blood Cells-Urine 0 SEEN /hpf (0-5)
[2022-09-25 16:48] LABS: Color, Urine Yellow (Yellow); Glucose, Dipstick Normal (Normal); Ketone-Dipstick 5 mg/dl (Negative); Leukocyte Esterase-Dipstick 500 /ul (Negative); Nitrite-Dipstick Positive (Negative); Occult Blood-Urine 10 /ul (Negative); Protein-Dipstick 15 mg/dl (Negative); Urine Bilirubin Dipstick Negative (Negative); Urine Clarity Cloudy (Clear); Urine Urobilinogen 1 mg/dl (Normal)
[2022-09-25 16:56] LABS: Absolute Lymphocyte Count 0.51 X10^3/uL (0.83-4.51); Basophil# 0.03 X10^3/uL; Basophil% 0.3 % (0-1); Eosinophil# 0.07 X10^3/uL; Eosinophils% 0.7 % (0-5); Hematocrit 44.5 % (37-47); Hemoglobin 14.8 g/dL (12.0-15.0); Lymphocyte # 0.51 X10^3/ul (0.83-4.51); Mean Corp Hgb Conc 33.3 g/dL (32-36); Mean Corpuscular Hgb 31.6 pg (27.0-32.0); Mean Corpuscular Volume 95.1 fL (81-99); Monocyte# 0.62 X10^3/uL; NRBC Flagged by Analyzer 0 % (0-5); Neutrophil # 8.99 X10^3/uL (2.7-7.7); Neutrophil % 87.6 % (47-70); POSITIVE DIFFERENTIAL YES; Platelet Count 213 K/mm3 (150-450); RBC Distribution Width CV 15.5 % (11.6-14.6); RBC Distribution Width SD 54.4 fl (35.1-43.9); Red Blood Count 4.68 M/mm3 (4.2-5.4); White Blood Count 10.3 K/mm3 (4.4-11.0)
[2022-09-25 16:58] LABS: ALB/GLOB Ratio 0.9 RATIO (0.9-2.4); AST(SGOT) 21 U/L (15-37); Alanine Aminotransfer ALT/SGPT 25 U/L (13-56); Albumin, Serum 3.5 g/dL (3.2-5.0); Alkaline Phosphatase 205 U/L (45-117); Anion Gap 6 (5-15); BUN 20 mg/dL (7-18); BUN/Creat Ratio 16.7 RATIO (10-20); Calcium,Total 9.8 mg/dL (8.5-10.1); Chloride 110 mmol/L (98-107); EST Glomerular Filtration Rate 46 mL/min (>60); Est Glom Filt Rate - Afr Amer 56 mL/min (>60); Estimated Creatinine Clearance 32.29 ml/min; Globulin 4.1 g/dL (2.2-4.2); Glucose 123 mg/dL (74-106); Potassium 4.1 mmol/L (3.5-5.1); Protein, Total 7.6 g/dL (6.4-8.2); Sodium Level 144 mmol/L (136-145)
[2022-09-25 17:00] LABS: International Normalized Ratio 1.1; Prothrombin Time (Protime)PT. 13.4 SECONDS (11.7-14.9)
[2022-09-25 17:02] LABS: Bacteria 4+ /hpf (None Seen); Squamous Epithelial Cells - UA 0-5 SEEN /hpf (5-10); White Blood Cells 25-50 SEEN /hpf (0-5)
[2022-09-25 17:04] LABS: Differential Indicated SCAN CRITERIA MET
--- NOTE | 2022-09-25 17:20 | CT_ITS ---
EXAM: CT ABDOMEN AND PELVIS WITH INTRAVENOUS CONTRAST CLINICAL INDICATION: abdominal pain post surgery TECHNIQUE: Helically acquired images were obtained of the abdomen and pelvis with intravenous contrast. CTDIvol = ( 14.19 ) mGy, DLP = ( 975.78 ) mGycm This CT exam was performed using one or more of the following dose reduction techniques: automated exposure control, adjustment of the mA and/or kV according to patient size, and/or use of iterative reconstruction technique. This report was created using [employer] report generation technology. CONTRAST: IV 100mL [id number] COMPARISON: None. FINDINGS: LOWER THORAX: Small hiatal hernia. Scarring involving the right middle lobe and inferior lingula. Lung bases are clear. No cardiomegaly. No significant pericardial effusion. ABDOMEN: LIVER: Unremarkable. Homogeneous. No focal mass. GALLBLADDER AND BILE DUCTS: Redemonstration of cholelithiasis, calcified granulomas of the spleen, and few bilateral renal cysts. No gallbladder distention or wall edema. No intra- or extrahepatic biliary ductal dilation. PANCREAS: Unremarkable. No focal cystic or solid mass. SPLEEN: See above. ADRENALS: Unremarkable. No nodules. KIDNEYS AND URETERS: Unremarkable. Normal renal size and position. No hydronephrosis. STOMACH AND BOWEL: Redemonstration of distal colonic diverticulosis without acute diverticulitis. No colitis. No bowel obstruction. Small hiatal hernia. PELVIS: APPENDIX: No evidence of acute appendicitis. BLADDER: Unremarkable. REPRODUCTIVE: Unremarkable as visualized. No mass. ABDOMEN and PELVIS: INTRAPERITONEAL SPACE: No free air or free fluid. BONES/JOINTS: Degenerative changes of the spine. No suspicious lytic or blastic abnormality. SOFT TISSUES: Status post abdominal wall hernia repair. No fluid collections along the abdominal wall. VASCULATURE: Enhancing vessel again identified within the abdominal aortic aneurysm sac for example on image 51 series 2, unchanged. No evidence of periaortic stranding or fluid. No significant luminal narrowing of the aortobiiliac stent graft. LYMPH NODES: Unremarkable. No enlarged lymph nodes. Postsurgical artifact and scarring in the bilateral groin regions. Probable reactive adenopathy in the bilateral groin regions. CT/Abdomen/Pelvis W IV Cont ONLY IMPRESSION: 1. No complications following abdominal wall hernia repair. 2. No other acute or inflammatory disease or bowel obstruction. 3. Stable abdominal aorta as above. Electronically Signed: Andres Salvador MD at 18:10 EST ,
--- NOTE | 2022-09-25 17:26 | RAD_ITS ---
EXAM: XR CHEST, 1 VIEW CLINICAL INDICATION: cough TECHNIQUE: Frontal view of the chest. This report was created using [employer] report generation technology. COMPARISON: None. FINDINGS: LUNGS AND PLEURAL SPACES: Top normal size of the cardiac silhouette for a portable examination. Vascular congestion limits assessment. No consolidation. No pleural effusion or pneumothorax. Question of a heterogeneous airspace disease in the retrocardiac region left lower lobe. Suggest a lateral view for further confirmation suspicion/further characterization. HEART: Unremarkable. Cardiac silhouette not enlarged. MEDIASTINUM: Central airways and mediastinal contour are unremarkable. BONES/JOINTS: Degenerative change of the acromioclavicular joints and spine. SOFT TISSUES: Unremarkable. LYMPH NODES: Enlarged benigno; differential diagnosis includes adenopathy as well as pulmonary arterial enlargement. RAD/Chest 1 View (Portable) IMPRESSION: Question of intravenous airspace disease in the retrocardiac region of the left lower lobe. Suggest obtaining a lateral view for confirmation of suspicion/further characterization. Enlarged benigno as above. Electronically Signed: Andres Salvador MD at 17:59 EST ,
[2022-09-25 17:37] LABS: Anisocytosis RARE; Macrocytosis RARE; Platelet Estimate ADEQUATE (ADEQ); Red Cell Morphology N CHROM NORMAL (NORM C&C)
[2022-09-25 18:56] LABS: Lactic Acid 2.2 mmol/L (0.4-1.9)
--- NOTE | 2022-09-25 19:00 | HP.PCM.HOS_ITS ---
[facility] - General General Date of Admission: 09/25/22 Date of Service: 09/25/22 Chief Complaint: left lower abdominal redness HPI Narrative ELA JOHNSON, is a 82 F with a PMh as outlined who presents via the ED on with a complaint of redness in her left lower abdominal area which started on the day of admission. She said she was out with some friends when she noticed an area of redness and rash which was about the size of a silver dollar in her left lower abdomen. She said the redness rapidly progressed over her left lower abdominal area and further down towards her pubic area. She also developed associated fever and chills. She denied any nausea, vomiting or diarrhea, cough, chest pain or any other symptoms. REview of systems was otherwise negative. Of note, patient had double hernia repair done by general surgery in August 2022. Vitals at time of review were blood pressure 140/62 with pulse rate of 82, respiratory rate of 27 and temperature of 98.8 Fahrenheit. She was saturating at 92% on 2 L of oxygen. CBC showed WBC of 10.8 with hemoglobin of 14.8 and platelets of 213. Chemistry was significant for creatinine of 1.2 and lactic acid of 2.2. Urinalysis showed evidence of UTI with positive nitrite and 500 leukocyte esterase as well as WBC of 25-50 and urine bacteria 4+. CT of the abdomen and pelvis showed no acute inflammatory disease or bowel obstruction and no complications following abdominal wall hernia repair. Chest x-ray showed questionable heterogeneous airspace disease in the retrocardiac region of the left lower lobe. She has been admitted to be managed for cellulitis of the lower abdomen as well as probable pneumonia and UTI. [facility] Medical History Bilateral lower extremity edema Debility Health care maintenance History of aneurysm History of COVID-19 History of pneumonia History of skin cancer History of uterine cancer Hypertension Home Medications amlodipine 5 mg tablet 5 mg PO DAILY blood pressure 08/17/22 [History Last Taken 09/24/22] apixaban 5 mg tablet See Taper PO BID 37 days #88 tabs 08/21/22 [Rx Last Taken 09/24/22] nystatin 100,000 unit/gram topical powder (Nyamyc) 1 applic topical TID #0 grams 08/24/22 [Rx Last Taken 09/25/22] Allergy/AdvReac Type Severity Reaction Status Date / Time rosuvastatin [From Crestor] Allergy Severe stomach Verified 09/25/22 15:49 pains shellfish derived Allergy Severe MOUTH SORES Verified 09/25/22 15:49 sulfamethoxazole Allergy Unknown unknown Verified 09/25/22 15:49 [From Bactrim] trimethoprim [From Bactrim] Allergy Unknown unknown Verified 09/25/22 15:49 Family History Son Alcoholism Grandmother No problems noted. Mother Heart disease Hypertension CVA (cerebral vascular accident) Father Cancer throat Surgical History History of hysterectomy Hx of endovascular stent graft for abdominal aortic aneurysm Social History Smoking Status: Never smoker alcohol intake: never substance use type: does not use what type of physical activity do you participate in: walking and aerobics ROS Constitutional Constitutional: Reports chills, fatigue, fever(s), malaise and weakness; Denies anorexia Eyes Eyes: Denies change in vision ENT HEENT: Denies dysphagia, headache(s) or sore throat Cardiovascular Cardiovascular: Denies chest pain, dyspnea on exertion, edema, lightheadedness, orthopnea, palpitations, paroxysmal nocturnal dyspnea or rapid heart rate Respiratory/Chest Respiratory/Chest: Denies cough, productive cough, shortness of breath at rest, shortness of breath with exertion or wheezing Gastrointestinal Gastrointestinal: Denies abdominal pain, constipation, diarrhea, dyspepsia, nausea or vomiting Genitourinary Genitourinary: Denies burning urination, dysuria, urinary frequency or urinary urgency Musculoskeletal Musculoskeletal: Denies arthralgias or joint pain Neurologic Neurologic: Denies confusion, dizziness, focal weakness or headache(s) Psychiatric Psychiatric: Denies anxiety or depression Vital Signs Vital Signs Vital Signs: 09/25/22 15:49 09/25/22 15:48 09/25/22 16:18 Temperature 96.2 F L 100.3 F H Temperature Source Temporal Oral Pulse Rate 81 Respiratory Rate 14 Blood Pressure 148/50 H Blood Pressure Mean 82 Pulse Ox 97 88 Oxygen Delivery Method Room Air Room Air Oxygen Flow Rate (L/min) 09/25/22 17:35 09/25/22 18:35 Temperature 99.5 F H 98.8 F Temperature Source Oral Oral Pulse Rate 91 82 Respiratory Rate 35 H 27 H Blood Pressure 134/64 H 140/62 H Blood Pressure Mean 87 88 Pulse Ox 92 92 Oxygen Delivery Method Nasal Cannula Nasal Cannula Oxygen Flow Rate (L/min) 2 2 Weight Weight: 191 lb Body Mass Index (BMI) 32.8 Physical Exam Const alert, oriented x3 and no apparent distress General Appearance: cooperative HEENT normocephalic, head/scalp atraumatic, hearing grossly normal bilaterally and moist oral mucous membranes Mouth: oral and palatal mucosa normal Eyes PERRL, EOMs intact bilaterally and conjunctivae normal Neck no lymphadenopathy and supple Resp Resp Narrative: mildly diminished breath sounds bibasally, no wheezes or crackles. On 2L of oxygen by nasal canula Cardio regular rate, regular rhythm, S1 normal heart sound, S2 normal heart sound and no murmurs GI normal to inspection, nondistended, normoactive bowel sounds, soft to palpation, non-tender and non-distended Extremity normal to inspection Skin Skin Narrative: significant erythema in the left lower abdomen, extending down to the pelvis and into the right lower abdomen. Area is blanchable; minimal tenderness on palpation. Neuro oriented x3, CN's II-XII intact bilaterally and moves all extremities Sensorium / Orientation: awake and alert Motor Exam: strength 5/5 throughout Psych affect normal Results Lab / Micro Data Result Diagrams: 09/25/22 16:18 09/25/22 16:18 Labs: Laboratory Results - last 24 hr 09/25/22 16:18: WBC 10.3, RBC 4.68, Hgb 14.8, Hct 44.5, MCV 95.1, MCH 31.6, MCHC 33.3, RDW Std Deviation 54.4 H, RDW Coeff of Toribio 15.5 H, Plt Count 213, MPV 9.0, Immature Gran % (Auto) 0.400, Neut % (Auto) 87.6 H, Lymph % (Auto) 5.0 L, [place] % (Auto) 6.0, Eos % (Auto) 0.7, Baso % (Auto) 0.3, Absolute Neuts (auto) 9.0 H, Absolute Lymphs (auto) 0.51 L, Nucleated RBC % 0, Differential Comment SEE COMMENT, Platelet Estimate ADEQUATE, RBC Morphology N CHROM, Anisocytosis RARE, Macrocytosis RARE 09/25/22 16:18: PT 13.4, INR 1.1, APTT 27.0 09/25/22 16:18: Sodium 144, Potassium 4.1, Chloride 110 H, Carbon Dioxide 28.0, Anion Gap 6, BUN 20 H, Creatinine 1.20 H, Estim Creat Clear Calc 32.29, Est GFR (MDRD) Af Amer 56 L, Est GFR (MDRD) Non-Af 46 L, BUN/Creatinine Ratio 16.7, Glucose 123 H, Calcium 9.8, Total Bilirubin 0.60, AST 21, ALT 25, Alkaline Phosphatase 205 H, Total Protein 7.6, Albumin 3.5, Globulin 4.1, Albumin/Globulin Ratio 0.9 09/25/22 16:18: Lactic Acid 2.2 H* 09/25/22 16:30: Urine Color Yellow, Urine Clarity Cloudy, Urine pH 6.0, Ur Specific [place] 1.020, Urine Protein 15 H, Urine Glucose (UA) Normal, Urine Ketones 5 H, Urine Occult Blood 10 H, Urine Nitrite Positive H, Urine Bilirubin Negative, Urine Urobilinogen 1 H, Ur Leukocyte Esterase 500 H, Urine RBC 0 SEEN, Urine WBC 25-50 SEEN, Ur Squamous Epith Cells 0-5 SEEN, Urine Bacteria 4+, Urine Mucus 0 SEEN Radiology Impression Abdomen/Pelvis CT 09/25/22 17:20 IMPRESSION: 1. No complications following abdominal wall hernia repair. 2. No other acute or inflammatory disease or bowel obstruction. 3. Stable abdominal aorta as above. Electronically Signed: Andres Salvador MD at 18:10 EST Reading Location ID and State: [employer] , Service support , Chest X-Ray 09/25/22 17:26 IMPRESSION: Question of intravenous airspace disease in the retrocardiac region of the left lower lobe. Suggest obtaining a lateral view for confirmation of suspicion/further characterization. Enlarged benigno as above. Electronically Signed: Andres Salvador MD at 17:59 EST Reading Location ID and State: [employer] / [place] Tel , Service support , Assessment & Plan Assessment/Plan (1) Abdominal wall cellulitis: (2) Acute UTI: (3) Pneumonia: PLAN: Plan #Abdominal wall cellulitis * etiology is not clear. She denies any insect bite or any trauma to the area. * was started on IV vancomycin and zosyn in the ED. Cellulitic area is nonpur ulent. Will continue with IV zosyn o/a of UTI and pneumonia also. * blood cultures obtained * demarcate area to for proper monitoring for resolution of cellulitis * #UTI * urinalysis showed 4+ bacteria * get urine cultures * on IV zosyn. Will monitor * #PRobable community acquired pneumonia * patient is mildly hypoxic, requiring 2L of oxgyen * CXR showed heterogenous airspace disease in the retrocardiac region of the left lower lobe * on IV zosyn; this should also cover for pneumonia * get sputum cultures and check urine for strep and legionella * #Recent double hernia repair * stable. Surgical site has healed well. * will monitor * #Hypertension: on amlodipine #History of PE * developed PE during her recent admission for abdominal wall hernia * on eliquis * #History of uterine cancer: stable DVT prophylaxis: on eliquis CODE STATUS: Full code * Patient and daughter counseled extensively about different types of CODE STATUS including full code, DNR CCA and DNR CCA. Patient elects to be full co de. * Total [id number] time 17 minutes. Charges/Coding Visit Charges Inpatient E&M: 27224 Init Hosp L3 Procedures Hospitalists Procedures: 04185 Advncd Care Plan 30 Min
[2022-09-25 20:55] LABS: Reflex Lactate? Y
[2022-09-25 22:19] LABS: Lactic Acid 1.7 mmol/L (0.4-1.9)
[2022-09-25] MEDS: 0.9% Normal Saline 1,000 ML 125 ML IV (22:52)
[2022-09-25] MEDS: Menthol/Lanolin/Calamine/Znox 113 GM Tube 1 APPLIC TOPICAL (22:55)
[2022-09-25] MEDS: Nystatin Powder 15gm Bottle 1 APPLIC TOPICAL (22:55)
[2022-09-25] MEDS: APIXABAN 5 MG TABLET 10 MG PO (23:18)
[2022-09-26] VITALS (15 sets, daily range): BP systolic 106–135; BP diastolic 56–75; PULSE 69–91; RESP 18–20; TEMP 37.1–37.4; O2SAT 91–95
[2022-09-26] MEDS: Acetaminophen 325 MG Tablet 650 MG PO ×2 (00:55→09:47)
[2022-09-26 06:23] LABS: Absolute Lymphocyte Count 0.34 X10^3/uL (0.83-4.51); Basophil# 0.02 X10^3/uL; Basophil% 0.2 % (0-1); Eosinophil# 0.01 X10^3/uL; Eosinophils% 0.1 % (0-5); Hematocrit 37.4 % (37-47); Hemoglobin 11.9 g/dL (12.0-15.0); Lymphocyte # 0.34 X10^3/ul (0.83-4.51); Lymphocyte % 3.8 % (19-41); Mean Corp Hgb Conc 31.8 g/dL (32-36); Mean Corpuscular Hgb 30.7 pg (27.0-32.0); Mean Corpuscular Volume 96.4 fL (81-99); Mean Platelet Vol. 8.6 fl (6.2-12.0); Monocyte# 0.44 X10^3/uL; NRBC Flagged by Analyzer 0 % (0-5); Neutrophil # 7.99 X10^3/uL (2.7-7.7); Neutrophil % 90.4 % (47-70); POSITIVE DIFFERENTIAL YES; Platelet Count 152 K/mm3 (150-450); RBC Distribution Width CV 15.8 % (11.6-14.6); RBC Distribution Width SD 55.8 fl (35.1-43.9); Red Blood Count 3.88 M/mm3 (4.2-5.4); White Blood Count 8.8 K/mm3 (4.4-11.0)
[2022-09-26] MEDS: Nystatin Powder 15gm Bottle 1 APPLIC TOPICAL ×3 (06:23→22:38)
[2022-09-26 06:27] LABS: Differential Indicated SCAN CRITERIA MET
[2022-09-26 06:46] LABS: Differential Comment SCANNED
[2022-09-26 06:50] LABS: Anion Gap 4 (5-15); BUN 14 mg/dL (7-18); BUN/Creat Ratio 14.3 RATIO (10-20); Chloride 112 mmol/L (98-107); Creatinine, Serum 0.98 mg/dL (0.55-1.02); EST Glomerular Filtration Rate 58 mL/min (>60); Est Glom Filt Rate - Afr Amer 70 mL/min (>60); Estimated Creatinine Clearance 39.54 ml/min; Glucose 99 mg/dL (74-106); Potassium 3.9 mmol/L (3.5-5.1); Sodium Level 141 mmol/L (136-145)
[2022-09-26] MEDS: amLODIPine 5 MG Tablet PO (07:47)
[2022-09-26] MEDS: Menthol/Lanolin/Calamine/Znox 113 GM Tube 1 APPLIC TOPICAL ×2 (07:48→22:39)
[2022-09-26] MEDS: APIXABAN 5 MG TABLET 10 MG PO ×2 (07:54→22:37)
--- NOTE | 2022-09-26 08:03 | PN.HOSP_ITS ---
Subjective Subjective Patient is an 82-year-old lady who presented with redness involving anterior abdominal wall. Patient had apparently undergone reduction and repair of an incarcerated incisional hernia by Dr. Enciso on 08/17/2022 Objective Data Objective Data Vital Signs: Vital Signs Temp Pulse Resp BP Pulse Ox O2 Del Method O2 Flow Rate 99.3 F H 72 18 118/59 L 95 Nasal Cannula 2 09/26/22 07:50 09/26/22 07:50 09/26/22 07:50 09/26/22 07:50 09/26/22 07:50 09/26/22 07:50 09/26/22 07:50 Oxygen Flow Rate (L/min) 2 Oxygen Delivery Method Nasal Cannula Weight: 89.584 kg Body Mass Index (BMI) 33.9 Intake & Output: Intake and Output for Last 24 Hours 09/24/22 09/25/22 09/26/22 23:59 23:59 23:59 Intake Total 1325 / 1445 570 / 570 Balance 1325 / 1445 570 / 570 Lab / Micro Data Result Diagrams: 09/26/22 06:17 09/26/22 06:17 Labs: Laboratory Results - last 24 hr 09/25/22 16:18: WBC 10.3, RBC 4.68, Hgb 14.8, Hct 44.5, MCV 95.1, MCH 31.6, MCHC 33.3, RDW Std Deviation 54.4 H, RDW Coeff of Toribio 15.5 H, Plt Count 213, MPV 9.0, Immature Gran % (Auto) 0.400, Neut % (Auto) 87.6 H, Lymph % (Auto) 5.0 L, [place] % (Auto) 6.0, Eos % (Auto) 0.7, Baso % (Auto) 0.3, Absolute Neuts (auto) 9.0 H, Absolute Lymphs (auto) 0.51 L, Nucleated RBC % 0, Differential Comment SEE COMME NT, Platelet Estimate ADEQUATE, RBC Morphology N CHROM, Anisocytosis RARE, Macrocytosis RARE 09/25/22 16:18: PT 13.4, INR 1.1, APTT 27.0 09/25/22 16:18: Sodium 144, Potassium 4.1, Chloride 110 H, Carbon Dioxide 28.0, Anion Gap 6, BUN 20 H, Creatinine 1.20 H, Estim Creat Clear Calc 32.29, Est GFR (MDRD) Af Amer 56 L, Est GFR (MDRD) Non-Af 46 L, BUN/Creatinine Ratio 16.7, Glucose 123 H, Calcium 9.8, Total Bilirubin 0.60, AST 21, ALT 25, Alkaline Phosphatase 205 H, Total Protein 7.6, Albumin 3.5, Globulin 4.1, Albumin/Globulin Ratio 0.9 09/25/22 16:18: Lactic Acid 2.2 H* 09/25/22 16:30: Urine Color Yellow, Urine Clarity Cloudy, Urine pH 6.0, Ur Specific [place] 1.020, Urine Protein 15 H, Urine Glucose (UA) Normal, Urine Ketones 5 H, Urine Occult Blood 10 H, Urine Nitrite Positive H, Urine Bilirubin Negative, Urine Urobilinogen 1 H, Ur Leukocyte Esterase 500 H, Urine RBC 0 SEEN, Urine WBC 25-50 SEEN, Ur Squamous Epith Cells 0-5 SEEN, Urine Bacteria 4+, Urine Mucus 0 SEEN 09/25/22 21:35: Lactic Acid 1.7 09/26/22 06:17: WBC 8.8, RBC 3.88 L, Hgb 11.9 L, Hct 37.4, MCV 96.4, MCH 30.7, MCHC 31.8 L, RDW Std Deviation 55.8 H, RDW Coeff of Toribio 15.8 H, Plt Count 152, MPV 8.6, Immature Gran % (Auto) 0.500, Neut % (Auto) 90.4 H, Lymph % (Auto) 3.8 L, [place] % (Auto) 5.0, Eos % (Auto) 0.1, Baso % (Auto) 0.2, Absolute Neuts (auto) 8.0 H, Absolute Lymphs (auto) 0.34 L, Nucleated RBC % 0, Differential Comment SCANNED 09/26/22 06:17: Sodium 141, Potassium 3.9, Chloride 112 H, Carbon Dioxide 25.0, Anion Gap 4 L, BUN 14, Creatinine 0.98, Estim Creat Clear Calc 39.54, Est GFR (MDRD) Af Amer 70, Est GFR (MDRD) Non-Af 58 L, BUN/Creatinine Ratio 14.3, Glucose 99, Calcium 8.0 L Micro: Microbiology 09/25/22 16:18 Blood Culture (Wb) - Anticubital Left Blood Culture - Preliminary 09/25/22 16:15 Blood Culture (Wb) - Anticubital Right Bacteria Detection (PCR) - Final Streptococcus agalactiae (B) 09/25/22 16:15 Blood Culture (Wb) - Anticubital Right Blood Culture - Preliminary Streptococcus agalactiae (B) Radiography Diagnostic Testing: Radiology Impression Abdomen/Pelvis CT 09/25/22 17:20 IMPRESSION: 1. No complications following abdominal wall hernia repair. 2. No other acute or inflammatory disease or bowel obstruction. 3. Stable abdominal aorta as above. Electronically Signed: Andres Salvador MD at 18:10 EST , Chest X-Ray 09/25/22 17:26 IMPRESSION: Question of intravenous airspace disease in the retrocardiac region of the left lower lobe. Suggest obtaining a lateral view for confirmation of suspicion/further characterization. Enlarged benigno as above. Electronically Signed: Andres Salvador MD at 17:59 EST , Physical Exam Narrative GENERAL: cooperative HEENT: Atraumatic; normocephalic EYES; Anicteric, Normal Conjunctiva NECK; supple, normal thyroid, RESPIRATORY: Diminished to auscultation CARDIOVASCULAR: Regular S1 S2, GI: soft, normoactive bowel sounds, : No Renal angle tenderness; EXTREMITIES: No edema, no clubbing, MUSCULOSKELETAL: no muscle wasting NEURO: Awake; no lateralizing signs. SKIN: Erythema from the umbilicus to the suprapubic region on the left lower quadrant with warmth PSYCH; Flat affect Assessment & Plan Assessment/Plan (1) Abdominal wall cellulitis: (2) Acute UTI: (3) Pneumonia: PLAN: Plan Patient is an 82-year-old lady who presented with redness involving anterior abdominal wall. Patient had apparently undergone reduction and repair of an incarcerated incisional hernia by Dr. Enciso on 1. Anterior abdominal wall cellulitis ? Patient admitted to regular nursing floor started on broad-spectrum antibiotic therapy with vancomycin and Zosyn. Blood cultures so far positive for GPC awaiting final identification and sensitivity 2. Acute cystitis ? Patient is on broad-spectrum antibiotic therapy pending final identification and sensitivity 3. Suspected pneumonia ? Patient was started on Zosyn. Placed on supplemental oxygen 4. Recent provoked pulmonary embolism ? Patient is on Eliquis did continue 5. Reduction and repair of an incarcerated incisional hernia -by Dr. Enciso on 08/17/2202. Incisions side remains intact 6. Class I obesity with BMI of 33.9 ? Weight loss advised 7. History of uterine cancer ? Status post hysterectomy currently in remission 8. Hypertension - Blood pressure controlled, home medications continued with dose adjustment as needed Charges/Coding Visit Charges Inpatient E&M: 30886 [facility] Hosp L2
--- NOTE | 2022-09-26 11:30 | CASEMGMT ---
KARY ELIZONDO assessment: Face to Face with patient for initial transition planning/care coordination assessment. KARY ELIZONDO introduced self and role at [facility], pt voices understanding and consents to assessment. Pt is A/Ox4 and answers all questions appropriately. Pt is sitting up chair in no distress on 2L nc.? Care providers, pharmacy,?and demographics verified. ? Presentation: Pt c/o chills/pain under left breast-recent double hernia surgery Admitting dx: Cellulitis lower abd PCP: Ann Specialists: Zaria, surgeon Preferred Pharmacy: [facility] Insurance: MCR A/B, [place] Prescription Benefit:?[employer] Living Will/HPOA: Pt does not have LW/HPOA but states 'we are working on it.' LNOK: Elsa Thomason, daughter; Gerry Hansen, son Living Arrangements: Pt lives alone in 1 story apt with 4 steps in and states no concerns at home. Pt is independent with ADL's. Pt states friends/family get groceries and she gets meals from [employer]. Transportation: Pt states friends/family drive and states no transportation concerns. DME/HHC: Pt has a walker and grab bars. Pt states no need for any further DME. Pt states is active with [facility](supposed to be adding SW) but cannot remember company. Pt states has PT/OT at home thru [facility]. Pt was recently in [facility] for rehab. Pt states no concerns with going home at discharge. Pt is retired. Pt does not smoke cigarettes or drink ETOH. Pt voices no further concerns/needs. CM to follow for any further discharge planning/needs and [facility]. Advised pt to ask for CM if any further questions/concerns/needs arise, voices understanding. Pt Goal: Home w/ [facility] Plan: Home w/ [facility] [place] KARY ELIZONDO
--- NOTE | 2022-09-26 11:42 | PCM.RX.CS ---
Consult Pharmacy has been consulted to manage selected antiobiotic: Vancomycin Type of Consult: New start Suspected Infection: Skin/Soft tissue Prior Doses of Antibiotics Received/Current Regimen: Received 1250mg iv x 1 on 09.25.22. Labs: Sodium 141 mmol/L (136-145) 09/26/22 06:17 Potassium 3.9 mmol/L (3.5-5.1) 09/26/22 06:17 Chloride 112 mmol/L (98-107) H 09/26/22 06:17 Carbon Dioxide 25.0 mmol/L (21.0-32.0) 09/26/22 06:17 Anion Gap 4 (5-15) L 09/26/22 06:17 BUN 14 mg/dL (7-18) 09/26/22 06:17 Creatinine 0.98 mg/dL (0.55-1.02) 09/26/22 06:17 Est GFR (MDRD) Af Amer 70 mL/min (>60) 09/26/22 06:17 Est GFR (MDRD) Non-Af 58 mL/min (>60) L 09/26/22 06:17 BUN/Creatinine Ratio 14.3 RATIO (10-20) 09/26/22 06:17 Glucose 99 mg/dL (74-106) 09/26/22 06:17 Microbiology: Microbiology 09/25/22 Unknown Urine, Catheterized Urine Culture - Preliminary Presumptive E. coli 09/25/22 16:30 Urine, Clean Catch Legionella Antigen - Final 09/25/22 16:30 Urine, Clean Catch Streptococcus pneumoniae Antigen (M - Final 09/25/22 16:18 Blood Culture (Wb) - Anticubital Left Blood Culture - Preliminary 09/25/22 16:15 Blood Culture (Wb) - Anticubital Right Bacteria Detection (PCR) - Final Streptococcus agalactiae (B) 09/25/22 16:15 Blood Culture (Wb) - Anticubital Right Blood Culture - Preliminary Streptococcus agalactiae (B) Weight used for dosin.6 kg Estimated Creatinine Clearance: ~61ml/min Goal Trough: 10-15 mcg/mL Pharmacy Plan for Drug Dosing: Patient's SCrCl calculated to be ~61ml/min using adjusted body weight of 71.1kg. Will begin a dose of 750mg iv q12h per protocol with a trough level on 09.27.22 before 4th cumulative dose. Pharmacy Service will continue to monitor and adjust dosing as required. Follow-Up Labs: Trough Vancomycin - 09.27.22@0930 before 1000 dose
[2022-09-27] VITALS (14 sets, daily range): BP systolic 100–122; BP diastolic 54–66; PULSE 60–72; RESP 16–18; TEMP 36.4–37.2; O2SAT 93–95
[2022-09-27] MEDS: Acetaminophen 325 MG Tablet 650 MG PO (02:17)
[2022-09-27] MEDS: Nystatin Powder 15gm Bottle 1 APPLIC TOPICAL ×3 (06:13→20:25)
--- NOTE | 2022-09-27 07:25 | PN.HOSP_ITS ---
Subjective Subjective Patient seen erythema involving the left lower quadrant of the anterior abdominal wall persist.Her urine cultures came back positive for E. coli identification is sensitive pending Objective Data Objective Data Vital Signs: Vital Signs Temp Pulse Resp BP Pulse Ox O2 Del Method O2 Flow Rate 97.6 F L 63 18 122/66 H 94 Nasal Cannula 2 09/27/22 06:10 09/27/22 06:10 09/27/22 06:10 09/27/22 06:10 09/27/22 07:22 09/27/22 07:22 09/27/22 07:22 Oxygen Flow Rate (L/min) 2 Oxygen Delivery Method Nasal Cannula Weight: 89.584 kg Body Mass Index (BMI) 33.9 Intake & Output: Intake and Output for Last 24 Hours 09/25/22 09/26/22 09/27/22 23:59 23:59 23:59 Intake Total 1325 / 1445 3450 / 3850 550 / 550 Balance 1325 / 1445 3450 / 3850 550 / 550 Lab / Micro Data Result Diagrams: 09/26/22 06:17 09/26/22 06:17 Micro: Microbiology 09/25/22 Unknown Urine, Catheterized Urine Culture - Preliminary Presumptive E. coli 09/25/22 16:30 Urine, Clean Catch Legionella Antigen - Final 09/25/22 16:30 Urine, Clean Catch Streptococcus pneumoniae Antigen (M - Final 09/25/22 16:18 Blood Culture (Wb) - Anticubital Left Blood Culture - Preliminary 09/25/22 16:15 Blood Culture (Wb) - Anticubital Right Bacteria Detection (PCR) - Final Streptococcus agalactiae (B) 09/25/22 16:15 Blood Culture (Wb) - Anticubital Right Blood Culture - Prel iminary Streptococcus agalactiae (B) Physical Exam Narrative GENERAL: cooperative HEENT: Atraumatic; normocephalic EYES; Anicteric, Normal Conjunctiva NECK; supple, normal thyroid, RESPIRATORY: Diminished to auscultation CARDIOVASCULAR:? Regular S1 S2, GI:? soft, normoactive bowel sounds, : No Renal angle tenderness; EXTREMITIES:? No edema, no clubbing, MUSCULOSKELETAL:? no muscle wasting NEURO:? Awake;? no lateralizing signs. SKIN: Erythema from the umbilicus to the suprapubic region on the left lower quadrant with warmth PSYCH; Flat? affect Assessment & Plan Assessment/Plan (1) Abdominal wall cellulitis: (2) Acute UTI: (3) Pneumonia: PLAN: Plan Patient is an 82-year-old lady who presented with redness involving anterior abdominal wall.? Patient had apparently undergone reduction and repair of an incarcerated incisional hernia by Dr. Enciso on 1.? Anterior abdominal wall cellulitis ? Patient admitted to regular nursing floor started on broad-spectrum antibiotic therapy with vancomycin and Zosyn.? Blood cultures so far positive for GPC awaiting final identification and sensitivity 09/27/2022 patient seen erythema involving the left lower quadrant of the an terior abdominal wall persist.. Blood cultures positive for Streptococcus agalactiae vancomycin discontinued 2.? Acute cystitis ? Patient is on broad-spectrum antibiotic therapy pending final identification and sensitivity -09/27/2022 Her urine cultures came back positive for E. coli identification is sensitive pending 3.? Suspected pneumonia ? Patient was started on Zosyn.? Placed on supplemental oxygen 4.? Recent provoked pulmonary embolism ? Patient is on Eliquis did continue 5. Reduction and repair of an incarcerated incisional hernia -by Dr. Enciso on 08/17/2202.? Incisions side remains intact 6.? Class I obesity with BMI of 33.9 ? Weight loss advised 7.? History of uterine cancer ? Status post hysterectomy currently in remission 8.? Hypertension - Blood pressure controlled, home medications continued with dose adjustment as needed Charges/Coding Visit Charges Inpatient E&M: 35169 Subs Hosp L2
[2022-09-27] MEDS: amLODIPine 5 MG Tablet PO (08:05)
[2022-09-27] MEDS: Menthol/Lanolin/Calamine/Znox 113 GM Tube 1 APPLIC TOPICAL ×2 (08:05→20:25)
[2022-09-27] MEDS: APIXABAN 5 MG TABLET 10 MG PO ×2 (08:05→20:27)
[2022-09-27 10:28] LABS: Vancomycin, Trough Level 11.4 ug/mL (5.0-15.0)
[2022-09-27] MEDS: Ceftriaxone 1 GM/50 ML BAG IV (11:15)
[2022-09-28] VITALS (13 sets, daily range): BP systolic 119–128; BP diastolic 58–69; PULSE 59–73; RESP 16–18; TEMP 36.6–37; O2SAT 90–94
[2022-09-28] MEDS: Nystatin Powder 15gm Bottle 1 APPLIC TOPICAL ×2 (05:00→20:57)
[2022-09-28 07:13] LABS: Absolute Lymphocyte Count 0.79 X10^3/uL (0.83-4.51); Absolute Neutrophil Count 1.9 X10^3/uL (2.0-7.7); Basophil# 0.04 X10^3/uL; Basophil% 1.1 % (0-1); Eosinophil# 0.39 X10^3/uL; Eosinophils% 10.3 % (0-5); Hematocrit 38.2 % (37-47); Hemoglobin 12.5 g/dL (12.0-15.0); Lymphocyte # 0.79 X10^3/ul (0.83-4.51); Lymphocyte % 20.8 % (19-41); Mean Corp Hgb Conc 32.7 g/dL (32-36); Mean Corpuscular Hgb 31.6 pg (27.0-32.0); Mean Corpuscular Volume 96.5 fL (81-99); Mean Platelet Vol. 9.2 fl (6.2-12.0); Monocyte# 0.62 X10^3/uL; Monocyte% 16.4 % (0-10); NRBC Flagged by Analyzer 0 % (0-5); Neutrophil # 1.94 X10^3/uL (2.7-7.7); Neutrophil % 51.1 % (47-70); Platelet Count 183 K/mm3 (150-450); RBC Distribution Width CV 15.6 % (11.6-14.6); RBC Distribution Width SD 55.5 fl (35.1-43.9); Red Blood Count 3.96 M/mm3 (4.2-5.4); White Blood Count 3.8 K/mm3 (4.4-11.0)
[2022-09-28 07:50] LABS: Anion Gap 6 (5-15); BUN 17 mg/dL (7-18); BUN/Creat Ratio 18.3 RATIO (10-20); Calcium,Total 8.6 mg/dL (8.5-10.1); Chloride 109 mmol/L (98-107); Creatinine, Serum 0.93 mg/dL (0.55-1.02); EST Glomerular Filtration Rate 62 mL/min (>60); Est Glom Filt Rate - Afr Amer 75 mL/min (>60); Estimated Creatinine Clearance 41.66 ml/min; Glucose 89 mg/dL (74-106); Sodium Level 141 mmol/L (136-145)
--- NOTE | 2022-09-28 08:01 | PCM.PN.HOSP ---
Subjective Subjective Follow-up for GBS bacteremia probably from abdominal wall cellulitis. Urine culture positive for E. coli. Objective Data Objective Data Vital Signs: Vital Signs Temp Pulse Resp BP Pulse Ox O2 Del Method O2 Flow Rate 98.1 F 60 16 120/59 L 94 Nasal Cannula 2 09/28/22 03:40 09/28/22 07:09 09/28/22 03:40 09/28/22 03:40 09/28/22 03:40 09/28/22 03:40 09/28/22 03:40 Oxygen Flow Rate (L/min) 2 Oxygen Delivery Method Nasal Cannula Weight: 197 lb 8 oz Body Mass Index (BMI) 33.9 Intake & Output: Intake and Output for Last 24 Hours 09/26/22 09/27/22 09/28/22 23:59 23:59 23:59 Intake Total 3450 / 3850 2049 / 2049 500 / 500 Balance 3450 / 3850 2049 / 2049 500 / 500 Lab / Micro Data Result Diagrams: 09/28/22 06:40 09/28/22 06:40 Labs: Laboratory Results - last 24 hr 09/27/22 09:24: Vancomycin Trough 11.4 09/28/22 06:40: WBC 3.8 L, RBC 3.96 L, Hgb 12.5, Hct 38.2, MCV 96.5, MCH 31.6, MCHC 32.7, RDW Std Deviation 55.5 H, RDW Coeff of Toribio 15.6 H, Plt Count 183, MPV 9.2, Immature Gran % (Auto) 0.300, Neut % (Auto) 51.1, Lymph % (Auto) 20.8, Patrick % (Auto) 16.4 H, Eos % (Auto) 10.3 H, Baso % (Auto) 1.1 H, Absolute Neuts (auto) 1.9 L, Absolute Lymphs (auto) 0.79 L, Nucleated RBC % 0 09/28/22 06:40: Sodium 141, Potassium 4.0, Chloride 109 H, Carbon Dioxide 26.0, Anion Gap 6, BUN 17, Creatinine 0.93, Estim Creat Clear Calc 41.66, Est GFR (MDRD) Af Amer 75, Est GFR (MDRD) Non-Af 62, BUN/Creatinine Ratio 18.3, Glucose 89, Calcium 8.6, Phosphorus 3.0, Magnesium 2.0 Micro: Microbiology 09/25/22 Unknown Urine, Catheterized Urine Culture - Final Presumptive E. coli 09/25/22 16:30 Urine, Clean Catch Legionella Antigen - Final 09/25/22 16:30 Urine, Clean Catch Streptococcus pneumoniae Antigen (M - Final 09/25/22 16:18 Blood Culture (Wb) - Anticubital Left Blood Culture - Preliminary 09/25/22 16:15 Blood Culture (Wb) - Anticubital Right Bacteria Detection (PCR) - Final Streptococcus agalactiae (B) 09/25/22 16:15 Blood Culture (Wb) - Anticubital Right Blood Culture - Preliminary Streptococcus agalactiae (B) Physical Exam Narrative Patient recently had ventral hernia repair by Dr. Enciso. Surgical wound well-healed No prior history of cellulitis. I think her current abdominal cellulitis probably precipitated by recent surgery. She noticed large red spot on the left lower abdominal wall on last Wednesday about 10 AM. Physical exam General: Alert, Oriented x3, Cooperative HEENT: Atraumatic, PERRLA, EOMI, Normocephalic Oral: No Gingival or Mucosal Lesions/ Ulcerations. Oral mucosa moist. Neck: Supple, No JVD, Negative Carotid Bruits Lungs: Air entry diminished in bilateral lung bases. No crepitation/rhonchi Cardiovascular: Regular rate, Regular Rhythm, Normal S1, Normal S2, No murmurs Abdomen: Bowel Sounds Present, Soft, Non Tender, Non-Distended : Denies burning micturition or new LUTS. No renal angle tenderness. No suprapubic tenderness. Extremities: No edema, Capillary Refill Less than 3 Seconds Skin: Erythema is much improved. Musculoskeletal: No Tenderness to Palpation of Joints or Extremities Neurological: Cranial nerves II-XII grossly intact, DTR 2+/4 and Symmetrical, Neuro grossly intact Psych/Mental Status: Normal Affect, Appropriate. Assessment & Plan Assessment/Plan (1) Abdominal wall cellulitis: (2) Acute UTI: (3) Pneumonia: PLAN: Plan Patient is an 82-year-old lady who presented with redness involving anterior abdominal wall.? Patient had apparently undergone reduction and repair of an incarcerated incisional hernia by Dr. Enciso on 1.? Anterior abdominal wall cellulitis with history of strep GBS bacteremia: ? Patient admitted to regular nursing floor started on broad-spectrum antibiotic therapy with vancomycin and Zosyn.? Blood cultures so far positive for GPC. Preliminary blood culture 1 bottle showed Aerococcus and another GBS. Antibiotic changed to IV ceftriaxone. ID consulted. Recommended 5 more days of Keflex 500 mg 3 times daily at the time of discharge. Patient had improvement about 80% on erythema, abdominal wall cellulitis. 2.? Acute E. coli cystitis Her urine cultures came back positive for E. coli identification sensitive to ceftriaxone. 3.? Suspected pneumonia of left retrocardiac region ? Patient was started preliminary on.? Placed on supplemental oxygen. Patient does not have acute symptoms of cough, shortness of breath tachypnea or hypoxia. 4.? Recent provoked pulmonary embolism ? Patient is on Eliquis did continue 5. Reduction and repair of an incarcerated incisional hernia -by Dr. Enciso on 08/17/2202.? Incisions side remains intact 6.? Class I obesity with BMI of 33.9 ? Weight loss advised 7.? History of uterine cancer ? Status post hysterectomy currently in remission 8.? Hypertension - Blood pressure controlled, home medications continued with dose adjustment as needed Charges/Coding Visit Charges Inpatient E&M: 94740 Subs Hosp L2
[2022-09-28] MEDS: Menthol/Lanolin/Calamine/Znox 113 GM Tube 1 APPLIC TOPICAL ×2 (09:45→20:57)
[2022-09-28] MEDS: APIXABAN 5 MG TABLET 10 MG PO ×2 (09:46→20:55)
[2022-09-28] MEDS: Ceftriaxone 1 GM/50 ML BAG IV (09:47)
[2022-09-28] MEDS: amLODIPine 5 MG Tablet PO (09:47)
--- NOTE | 2022-09-28 12:03 | CASEMGMT ---
Addendum entered by Anastasiia Pham 09/28/22 14:32: Sent [facility] the H&P and GALLO order via careport at this time. Addendum entered by Anastasiia Pham 09/28/22 14:23: Pt wishes to return home with HHC resuming. Addendum entered by Anastasiia Pham 09/28/22 14:21: KARY ELIZONDO into pt room. Pt called [facility] and put Kateryna on speakerphone. Pt has SN and PT through [facility], with PT being contracted from [facility]. Kateryna notified of pt hospitalization and they will take pt back at [place]. Addendum entered by Anastasiia Pham 09/28/22 13:50: Received tc back from Jessie stating pt was dc'd from [facility] on Sep 11 to home with dtr and she is not aware of the C agency. Original Note: TC to [facility] Jessie to try to determine pt agency she uses for HHC, left message. Will await returned call.
--- NOTE | 2022-09-28 12:20 | CON.PCM.ID_ITS ---
Assessment & Plan Assessment/Plan (1) Abdominal wall cellulitis: (2) Fever: PLAN: Fever resolved. Ucx with ecoli, single bcx with strep, single bcx with aerococcus. Rash much improved. On ceftriaxone now. Ok for home with 5 more days po keflex 500mg tid. Will follow, thank you HPI Consult Data Date of Consult: 09/28/22 HPI Narrative Reason for Consultation: bacteremia HPI Narrative: ELA JOHNSON, is a 82 F with double hernia repair last month, presented 09/25 with sudden onset abd redness, fever, and shakes. No pain or itching over abd, no drainage, incision is well healed. No cough or SOB, no abd pain or dysuria. Mild headache. Came to ED, admitted on vanc/zosyn; feeling much better, rash is 80% gone. Full ROS performed and neg except as noted above. [facility] Medical History Bilateral lower extremity edema Debility Health care maintenance Hernia History of aneurysm History of COVID-19 History of pneumonia History of skin cancer History of uterine cancer Hypertension Home Medications amlodipine 5 mg tablet 5 mg PO DAILY blood pressure 08/17/22 [History Last Taken 09/24/22] apixaban 5 mg tablet See Taper PO BID 37 days #88 tabs 08/21/22 [Rx Last Taken 09/24/22] nystatin 100,000 unit/gram topical powder (Nyamyc) 1 applic topical TID #0 grams 08/24/22 [Rx Last Taken 09/25/22] Allergy/AdvReac Type Severity Reaction Status Date / Time rosuvastatin [From Crestor] Allergy Severe stomach Verified 09/25/22 15:49 pains shellfish derived Allergy Severe MOUTH SORES Verified 09/25/22 15:49 sulfamethoxazole Allergy Unknown unknown Verified 09/25/22 15:49 [From Bactrim] trimethoprim [From Bactrim] Allergy Unknown unknown Verified 09/25/22 15:49 Family History Son Alcoholism Grandmother No problems noted. Mother Heart disease Hypertension CVA (cerebral vascular accident) Father Cancer throat Surgical History (Updated 09/25/22 @ 21:24 by Miguelina J Sword) History of hysterectomy Hx of endovascular stent graft for abdominal aortic aneurysm Social History Smoking Status: Never smoker alcohol intake: never substance use type: does not use what type of physical activity do you participate in: walking and aerobics Physical Exam Const alert, oriented x3 and no apparent distress General Appearance: cooperative HEENT normocephalic and head/scalp atraumatic Eyes PERRL and EOMs intact bilaterally Neck supple and No nodes Resp normal air movement and clear to auscultation bilaterally Cardio regular rate and regular rhythm GI soft to palpation, non-tender and non-distended Extremity General Extremity: edema Skin Skin Narrative: Faint LLQ erythema Neuro CN's II-XII intact bilaterally Lab / Micro Data Result Diagrams: 09/28/22 06:40 09/28/22 06:40 Labs: Laboratory Results - last 24 hr 09/28/22 06:40: WBC 3.8 L, RBC 3.96 L, Hgb 12.5, Hct 38.2, MCV 96.5, MCH 31.6, MCHC 32.7, RDW Std Deviation 55.5 H, RDW Coeff of Toribio 15.6 H, Plt Count 183, MPV 9.2, Immature Gran % (Auto) 0.300, Neut % (Auto) 51.1, Lymph % (Auto) 20.8, Banner % (Auto) 16.4 H, Eos % (Auto) 10.3 H, Baso % (Auto) 1.1 H, Absolute Neuts (auto) 1.9 L, Absolute Lymphs (auto) 0.79 L, Nucleated RBC % 0 09/28/22 06:40: Sodium 141, Potassium 4.0, Chloride 109 H, Carbon Dioxide 26.0, Anion Gap 6, BUN 17, Creatinine 0.93, Estim Creat Clear Calc 41.66, Est GFR (MDRD) Af Amer 75, Est GFR (MDRD) Non-Af 62, BUN/Creatinine Ratio 18.3, Glucose 89, Calcium 8.6, Phosphorus 3.0, Magnesium 2.0 Micro: Microbiology 09/25/22 16:15 Blood Culture (Wb) - Anticubital Right Bacteria Detection (PCR) - Final Streptococcus agalactiae (B) 09/25/22 16:15 Blood Culture (Wb) - Anticubital Right Blood Culture - Final Streptococcus agalactiae (B) 09/25/22 16:18 Blood Culture (Wb) - Anticubital Left Blood Culture - Preliminary Aerococcus viridans. 09/25/22 Unknown Urine, Catheterized Urine Culture - Final Presumptive E. coli
--- NOTE | 2022-09-28 15:37 | CHAPLAIN ---
Type of Pastoral Visit _x__ Initial Visit ___ Follow-up Visit ___ On-call Visit ___ General Patient Visit ___ Spiritual Assessment ___ Family Conference ___ Bereavement ___ Rapid Response ___ Code Blue ___ Other (describe below) Pastoral Care Referral From _x__ Patient ___ Family ___ Nurse ___ Physician ___ Slab Off Mill Tender ___ Feather Mixer ___ Other (describe below) Sacrament/Intervention _x__ Active listening ___ Anointing ___ Anabaptist ___ Bereavement ___ Communion _x__ Afia exploration ___ _x__ Life review _x__ Prayer ___ Reconciliation ___ Sacrament of Sick _x__ Supportive presence ___ Wedding ___ Other (describe below) Pastoral Comments patient is welcoming and quickly identifies herself as a Druze and speaks openly about her afia; pt gives some jew/afia review and also a concern about her family; pt acknowledges the good care of the hospital team and of her support from God; pt has a goal of when she is well enough 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
[2022-09-29 02:48] VITALS: PULSE 68
[2022-09-29 03:15] VITALS: BP 131/71; PULSE 63; RESP 18; TEMP 36.8; O2SAT 92
[2022-09-29 07:16] VITALS: O2SAT 91
[2022-09-29] MEDS: APIXABAN 5 MG TABLET 10 MG PO (08:32)
[2022-09-29] MEDS: amLODIPine 5 MG Tablet PO (08:33)
[2022-09-29] MEDS: Menthol/Lanolin/Calamine/Znox 113 GM Tube 1 APPLIC TOPICAL (08:33)
[2022-09-29 09:00] VITALS: BP 132/71; PULSE 78; RESP 16; TEMP 36.6; O2SAT 99
[2022-09-29 09:13] VITALS: BP 132/71; PULSE 78; RESP 16; TEMP 36.6; O2SAT 99
[2022-09-29 09:20] VITALS: PULSE 71
--- NOTE | 2022-09-29 10:05 | PCM.DC ---
Discharge Instructions Diet Discharge Diet: No restrictions Dressing / Incision Call your doctor if you observe: Fever of 101 or Higher, Coldness, Increased Pain, Numbness or Tingling, Change in Color, Inability to urinate, Inability to have a bowel movement, Using more than 1 pad per hour, Shortness of breath, Dizziness, Fainting spells, Swelling in the ankles, Chest pain, Prolonged hiccupping, Increased palpitations (irregular heartbeat), Calf discomfort and Uncontrolled pain Follow Up Care Test Results: Test results from this visit will be discussed in further detail at your follow-up appointment, if applicable. Discharge Plan Admission Admit Date/Time: 09/25/22 18:57 Primary Reason for Your Visit: Abdominal wall cellulitis with bacteremia and E. coli UTI Attending Provider: Kendell Jackson Primary Care Provider: Mio Juarez Consulting Providers: Ashley Bahena ; Faustino Brewer ; Ramesh Ayoub Discharge Orders/Prescriptions Prescriptions: New cephalexin 500 mg capsule 500 mg PO TID Qty: 15 0RF Continued amlodipine 5 mg tablet 5 mg PO DAILY apixaban 5 mg tablet See Taper PO BID 37 Days Qty: 88 0RF Taper: Apixaban VTE Treatment 10 mg TWICE A DAY for 7 Days 5 mg TWICE A DAY for 30 Days Label Comments: Pt states that she only takes 5mg at home, refuses the 10mg. [place]ystatin [place] 100,000 unit/gram Powder 1 applic topical TID Qty: 0 0RF Protocol: *Topical Application Instructions APPLICATION INSTRUCTIONS: under breasts bilateral and intertriginous(groin areas) Referrals / Follow Up: Mio Juarez MD [Primary Care Provider] - Within 1 Week Disposition Disposition (needs filled in before D/C Order can be placed): Home, Self Care
[2022-09-29] MEDS: Ceftriaxone 1 GM/50 ML BAG IV (10:28)
--- NOTE | 2022-09-29 10:44 | PCM.PN.ID ---
Physical Exam Narrative feeilng better, rash nearly resolved, no fever Const alert and no apparent distress General Appearance: cooperative Resp normal air movement and clear to auscultation bilaterally Cardio regular rate and regular rhythm GI soft to palpation, non-tender and non-distended Skin Skin Narrative: fading rash ID ID: Route of nutrition/ use of supplements: [] Nutritional Intake: [] IV Site: [] Villalta Catheter: [] Assessment & Plan Assessment/Plan (1) Abdominal wall cellulitis: (2) Fever: PLAN: Fever resolved. Ucx with ecoli, single bcx with strep, single bcx with aerococcus. Rash much improved. On ceftriaxone now. Ok for home with 5 more days po keflex 500mg tid. Will follow, d/w Dr. Jackson
--- NOTE | 2022-09-29 11:09 | DS.PCM_ITS ---
Providers Date of Admission: 09/25/22 Date of Discharge: 09/29/22 Primary Care Physician: Dr. Mio Juarez MD Consultations 09/28/22 08:03 Consult: Infectious Disease Routine Consulting Provider: Ramesh Ayoub Reason for Consult: strep GBS Bacteremia from abd wall cellulitis, UTI EMERGENT Consult: No MD Notified: Yes Date Notified: 09/28/22 Time Notified: 08:03 Method of Notification: Text Reason For Visit: CELLULITIS OF THE LOWER ABDOMEN Diagnosis Discharge Diagnosis (1) Abdominal wall cellulitis: Status: Acute Code(s): L03.311 - Cellulitis of abdominal wall (2) Fever: Status: Acute Code(s): R50.9 - Fever, unspecified Medications at Discharge Home Medications amlodipine 5 mg tablet 5 mg PO DAILY blood pressure 08/17/22 apixaban 5 mg tablet See Taper PO BID 37 days #88 tabs 08/21/22 nystatin 100,000 unit/gram topical powder (Nyamyc) 1 applic topical TID #0 grams 08/24/22 cephalexin 500 mg capsule 500 mg PO TID #15 caps 09/29/22 Hospital Course Summary of Care Provided Hospital Course: Patient is an 82-year-old lady who presented with redness involving anterior abdominal wall, fever and chills at home consistent with cellulitis.? Patient had apparently undergone reduction and repair of an incarcerated incisional hernia by Dr. Enciso on 1.? Anterior abdominal wall cellulitis with history of strep GBS bacteremia: ? Patient admitted to regular nursing floor started on broad-spectrum antibiotic therapy with vancomycin and Zosyn.? Blood cultures so far positive for GPC. Preliminary blood culture 1 bottle showed Aerococcus and another bottle GBS. Antibiotic changed to IV ceftriaxone. ID consulted. Recommended 5 more days of Keflex 500 mg 3 times daily at the time of discharge. The patient given a prescription for Keflex. Patient had improvement about 80% on erythema, abdominal wall cellulitis. 2.? Acute E. coli cystitis Her urine cultures came back positive for E. coli identification sensitive to ceftriaxone. Keflex is going to cover it. 3.? Infiltrate on chest x-ray or retrocardiac area, pneumonia ruled out. ? Patient was started preliminary on.? Placed on supplemental oxygen. Patient does not have acute symptoms of cough, shortness of breath tachypnea or hypoxia. Patient does not have symptoms of cough shortness of breath and I think infiltrate and x-ray may be not related to pneumonia. Pneumonia ruled out. 4.? Recent provoked pulmonary embolism ? Patient is on Eliquis did continue 5. Reduction and repair of an incarcerated incisional hernia -by Dr. Enciso on 08/17/2202.? Incisions side remains intact 6.? Class I obesity with BMI of 33.9 ? Weight loss advised 7.? History of uterine cancer ? Status post hysterectomy currently in remission 8.? Hypertension - Blood pressure controlled, home medications continued with dose adjustment as needed Discharge medication reconciliation done. Discharge follow-up instructions completed. Discharge process discussed with the patient and all questions were answered to patient's satisfaction. Follow-up with Dr. Enciso and PCP. Total time spent, exact 35 minutes on discharge meds reconciliation, examination, coordination of care with nurses and ancillary staff, review of imaging and blood test and discussion with the patient on follow-up instructions. Physical Exam Narrative Patient recently had ventral hernia repair by Dr. Enciso. Surgical wound well- healed No prior history of cellulitis. Last fever was 100.3 Fahrenheit on 09/25. No fever in last 3 days. Physical exam General: Alert, Oriented x3, Cooperative HEENT: Atraumatic, PERRLA, EOMI, Normocephalic Oral: No Gingival or Mucosal Lesions/ Ulcerations. Oral mucosa moist. Neck: Supple, No JVD, Negative Carotid Bruits Lungs: Air entry diminished in bilateral lung bases. No crepitation/rhonchi Cardiovascular: Regular rate, Regular Rhythm, Normal S1, Normal S2, No murmurs Abdomen: Bowel Sounds Present, Soft, Non Tender, Non-Distended : Denies burning micturition or new LUTS. No renal angle tenderness. No suprapubic tenderness. Extremities: No edema, Capillary Refill Less than 3 Seconds Skin: Erythema is much improved. Musculoskeletal: No Tenderness to Palpation of Joints or Extremities Neurological: Cranial nerves II-XII grossly intact, DTR 2+/4 and Symmetrical, Neuro grossly intact Psych/Mental Status: Normal Affect, Appropriate. Weight / BMI Weight Weight: 197 lb 8.547 oz Body Mass Index (BMI) 33.9 ABG / Lab / Microbiology Data Result Diagrams: 09/28/22 06:40 09/28/22 06:40 Microbiology: Microbiology 09/25/22 16:15 Blood Culture (Wb) - Anticubital Right Bacteria Detection ( PCR) - Final Streptococcus agalactiae (B) 09/25/22 16:15 Blood Culture (Wb) - Anticubital Right Blood Culture - Final Streptococcus agalactiae (B) 09/25/22 16:18 Blood Culture (Wb) - Anticubital Left Blood Culture - Preliminary Aerococcus viridans. 09/25/22 Unknown Urine, Catheterized Urine Culture - Final Presumptive E. coli 09/25/22 16:30 Urine, Clean Catch Legionella Antigen - Final 09/25/22 16:30 Urine, Clean Catch Streptococcus pneumoniae Antigen (M - Fin al D/C Instructions Discharge Diet: No restrictions Call your doctor if you observe: Fever of 101 or Higher, Coldness, Increased Pain, Numbness or Tingling, Change in Color, Inability to urinate, Inability to have a bowel movement, Using more than 1 pad per hour, Shortness of breath, Dizziness, Fainting spells, Swelling in the ankles, Chest pain, Prolonged hiccupping, Increased palpitations (irregular heartbeat), Calf discomfort and Uncontrolled pain Meaningful Use Info Meaningful Use Diagnoses (Choose all that apply): None applicable Discharge Plan Admission Admit Date/Time: 09/25/22 18:57 Primary Reason for Your Visit: Abdominal wall cellulitis with bacteremia and E. coli UTI Attending Provider: Kendell Jackson Primary Care Provider: Mio Juarez Consulting Providers: Ashley Bahena ; Faustino Brewer ; Ramesh Ayoub Discharge Orders/Prescriptions Prescriptions: New cephalexin 500 mg capsule 500 mg PO TID Qty: 15 0RF Continued amlodipine 5 mg tablet 5 mg PO DAILY apixaban 5 mg tablet See Taper PO BID 37 Days Qty: 88 0RF Taper: Apixaban VTE Treatment 10 mg TWICE A DAY for 7 Days 5 mg TWICE A DAY for 30 Days Label Comments: Pt states that she only takes 5mg at home, refuses the 10mg. nystatin [Nyamyc] 100,000 unit/gram Powder 1 applic topical TID Qty: 0 0RF Protocol: *Topical Application Instructions APPLICATION INSTRUCTIONS: under breasts bilateral and intertriginous(groin areas) Referrals / Follow Up: Mio Juarez MD [Primary Care Provider] - Within 1 Week Mendez Enciso MD [Med Staff - Active Staff] - Within 2 Weeks Disposition Disposition (needs filled in before D/C Order can be placed): Home, Self Care Charges/Coding Visit Charges Inpatient E&M: 51650 Disch Hosp
--- NOTE | 2022-09-29 11:14 | CASEMGMT ---
Pt ready for dc. Attached DC instructions to referal and sent to [facility] via [facility].
--- NOTE | 2022-09-29 12:00 | PHA.DC.MC ---
Pharmacy Service has performed discharge medication reconciliation and counseling for this patient. 1. CEPHALEXIN 500MG PO TID X 5 DAYS The patient's discharge medication list was reviewed for discrepancies and discrepancies were resolved. Home Medications amlodipine 5 mg tablet 5 mg PO DAILY blood pressure 08/17/22 apixaban 5 mg tablet See Taper PO BID 37 days #88 tabs 08/21/22 nystatin 100,000 unit/gram topical powder ([facility]) 1 applic topical TID #0 grams 08/24/22 cephalexin 500 mg capsule 500 mg PO TID #15 caps 09/29/22 The patient was counseled on the following discharge medications and changes in medications for homegoing were reviewed. The Reason for Use, instructions for use, and potential side effects were reviewed for all new medications. The patient's questions regarding all of their medications were answered. The patient was able to verbally demonstrate an understanding of their discharge medications. Patient counseled by director of student financial aidEsperanza.
== END 2022-09-29 14:44 | disposition home health service (06) | DRG 863 ==
LOC: ED 18:36 → MS3 19:16
PROVIDERS: Internal Medicine; Nurse Practitioner; Admitting Provider Student in an Organized Health Care Education/Training Program; Emergency Provider Emergency Medicine; PCP Internal Medicine; Visit Provider Internal Medicine
DX: T81.40XA Infection following a procedure, unspecified, initial encounter (principal); R78.81 Bacteremia; L03.311 Cellulitis of abdominal wall; N30.00 Acute cystitis without hematuria; I10 Essential (primary) hypertension; E78.5 Hyperlipidemia, unspecified; Y83.8 Other surgical procedures as the cause of abnormal reaction of the patient, or of later complication, without mention of misadventure at the time of the procedure; B96.20 Unspecified Escherichia coli [E. coli] as the cause of diseases classified elsewhere; R09.02 Hypoxemia; B95.1 Streptococcus, group B, as the cause of diseases classified elsewhere; E66.9 Obesity, unspecified; Z68.33 Body mass index [BMI] 33.0-33.9, adult; Z79.01 Long term (current) use of anticoagulants; Z86.16 Personal history of COVID-19; Z86.711 Personal history of pulmonary embolism; Z86.718 Personal history of other venous thrombosis and embolism; Z85.42 Personal history of malignant neoplasm of other parts of uterus; Z90.710 Acquired absence of both cervix and uterus
CPT/HCPCS: 36415; 71045; 74177; 80048; 80053; 80202; 81001; 83605; 83735; 84100; 85025; 85610; 85730; 87040; 87077; 87086; 87088; 87149; 87186; 87449; 93005; 97110; 97116; 97162; 97165; 97530; 97535; 99285; J7030; J7050; Q9967; A4216

== ENCOUNTER → 2022-12-16 | Outpatient (CLI) | payer MEDICARE, BC, MEDICAID, SELFPAY ==
[2022-12-16 12:15] LABS: Absolute Lymphocyte Count 0.94 X10^3/uL (0.83-4.51); Absolute Neutrophil Count 2.5 X10^3/uL (2.0-7.7); Basophil# 0.06 X10^3/uL; Basophil% 1.4 % (0-1); Eosinophils% 6.8 % (0-5); Hematocrit 43.1 % (37-47); Hemoglobin 13.8 g/dL (12.0-15.0); Lymphocyte # 0.94 X10^3/ul (0.83-4.51); Lymphocyte % 21.2 % (19-41); Mean Corpuscular Hgb 30.1 pg (27.0-32.0); Mean Corpuscular Volume 94.1 fL (81-99); Mean Platelet Vol. 9.5 fl (6.2-12.0); Monocyte# 0.66 X10^3/uL; Monocyte% 14.9 % (0-10); NRBC Flagged by Analyzer 0 % (0-5); Neutrophil # 2.45 X10^3/uL (2.7-7.7); Neutrophil % 55.2 % (47-70); Platelet Count 217 K/mm3 (150-450); RBC Distribution Width CV 16.5 % (11.6-14.6); Red Blood Count 4.58 M/mm3 (4.2-5.4); White Blood Count 4.4 K/mm3 (4.4-11.0)
[2022-12-16 12:43] LABS: ALB/GLOB Ratio 0.8 RATIO (0.9-2.4); AST(SGOT) 16 U/L (15-37); Alanine Aminotransfer ALT/SGPT 21 U/L (13-56); Albumin, Serum 3.2 g/dL (3.2-5.0); Alkaline Phosphatase 143 U/L (45-117); Anion Gap 5 (5-15); BUN 24 mg/dL (7-18); BUN/Creat Ratio 23.1 RATIO (10-20); Chloride 110 mmol/L (98-107); Creatinine, Serum 1.04 mg/dL (0.55-1.02); EST Glomerular Filtration Rate 54 mL/min (>60); Est Glom Filt Rate - Afr Amer 66 mL/min (>60); Globulin 4.1 g/dL (2.2-4.2); Glucose 107 mg/dL (74-106); Potassium 4.2 mmol/L (3.5-5.1); Protein, Total 7.3 g/dL (6.4-8.2); Sodium Level 142 mmol/L (136-145)
== END | disposition home or self-care (01) ==
LOC: BIMLAB 08:43
PROVIDERS: PCP Internal Medicine; Referring Provider Internal Medicine; Visit Provider Internal Medicine
DX: I10 Essential (primary) hypertension (principal)
CPT/HCPCS: 36415; 80053; 85025

== ENCOUNTER → 2023-04-23 | Outpatient (CLI) | payer MEDICARE, BC, MEDICAID, SELFPAY ==
[2023-04-23 16:07] LABS: ALB/GLOB Ratio 0.9 RATIO (0.9-2.4); AST(SGOT) 18 U/L (15-37); Alanine Aminotransfer ALT/SGPT 20 U/L (13-56); Albumin, Serum 3.5 g/dL (3.2-5.0); Alkaline Phosphatase 118 U/L (45-117); Anion Gap 6 (5-15); BUN 22 mg/dL (7-18); BUN/Creat Ratio 19.8 RATIO (10-20); Calcium,Total 9.1 mg/dL (8.5-10.1); Chloride 106 mmol/L (98-107); Cholesterol 238 mg/dL (200); Creatinine, Serum 1.11 mg/dL (0.55-1.02); EST Glomerular Filtration Rate 50 mL/min (>60); Est Glom Filt Rate - Afr Amer 61 mL/min (>60); Globulin 3.7 g/dL (2.2-4.2); Glucose 80 mg/dL (74-106); High Density Lipoprotein 58 mg/dL; Potassium 4.4 mmol/L (3.5-5.1); Protein, Total 7.2 g/dL (6.4-8.2); Sodium Level 142 mmol/L (136-145); Triglycerides 282 mg/dL; Very Low Density Lipoprotein 56 mg/dL (5-40)
== END | disposition home or self-care (01) ==
LOC: BIMLAB 13:32
PROVIDERS: PCP Internal Medicine; Referring Provider Internal Medicine; Visit Provider Internal Medicine
DX: I10 Essential (primary) hypertension (principal); E78.5 Hyperlipidemia, unspecified
CPT/HCPCS: 36415; 80053; 80061

== ENCOUNTER → 2023-07-02 | Outpatient (CLI) | payer MEDICARE, BC, MEDICAID, SELFPAY ==
[2023-07-02 14:33] LABS: Bacteria 0 SEEN /hpf (None Seen); Mucous, Urine 0 SEEN /hpf (<or=2+); Red Blood Cells-Urine 0 SEEN /hpf (0-5); Squamous Epithelial Cells - UA 0 SEEN /hpf (5-10)
[2023-07-02 15:22] LABS: Color, Urine Yellow (Yellow); Glucose, Dipstick Normal (Normal); Ketone-Dipstick Negative (Negative); Leukocyte Esterase-Dipstick 100 /ul (Negative); Nitrite-Dipstick Positive (Negative); Occult Blood-Urine Negative /ul (Negative); Protein-Dipstick Negative (Negative); Urine Bilirubin Dipstick Negative (Negative); Urine Clarity Clear (Clear); Urine Urobilinogen Normal (Normal)
[2023-07-02 15:29] LABS: White Blood Cells 0-5 SEEN /hpf (0-5)
== END | disposition home or self-care (01) ==
LOC: LABSPEC 13:44
PROVIDERS: PCP Internal Medicine; Visit Provider Internal Medicine
DX: R39.89 Other symptoms and signs involving the genitourinary system (principal)
CPT/HCPCS: 81001; 87077; 87086; 87088; 87186

== ENCOUNTER 2023-07-04 10:14 | Inpatient (IN) | payer MEDICARE, BC, SELFPAY ==
[2023-07-04] VITALS (20 sets, daily range): BP systolic 111–154; BP diastolic 61–93; PULSE 63–78; RESP 13–22; TEMP 35.8–36.7; O2SAT 82–99; BMI 36.3; BMI 34.5
--- NOTE | 2023-07-04 10:26 | RAD_ITS ---
INDICATION: shortness of breath -- -- hernia repair surgery 2 days ago, found unresponsive today, SOB EXAMINATION/TECHNIQUE: X-RAY - XR Chest 1 View COMPARISON: 09/25/2022. FINDINGS: LINES/DEVICES: None. LUNGS: Hypoventilatory changes right lung base and mild elevation of the right hemidiaphragm unchanged. No new infiltrate is seen. No evidence of pleural effusions. MEDIASTINUM AND CARDIOVASCULAR STRUCTURES: Borderline cardiac silhouette. BONES AND SOFT TISSUES: No demonstrated acute osseous changes. RAD/Chest 1 View (Portable) IMPRESSION: No radiographic evidence of acute cardiopulmonary disease. Electronically Signed: Pietro Waller MD at 11:31 EDT ,
--- NOTE | 2023-07-04 10:27 | CT_ITS ---
STUDY: CTA CHEST REASON FOR EXAM: Female, 83 years old. Shortness of breath RADIATION DOSAGE (If Supplied By Facility): CTDIvol = ( 23.75 ) mGy, DLP = ( 407.02 ) mGycm TECHNIQUE: The examination was performed with the intravenous administration of IV 100mL Isovue-370. Post-processing of the angiographic images was performed, with multiplanar reformation and 3D reconstruction. Individualized dose optimization techniques were used for this CT. COMPARISON: Prior CT of the chest of 08/11/2022. FINDINGS: Normal enhancement of the main pulmonary artery and right and left pulmonary arteries. There is limited enhancement of the bilateral peripheral pulmonary arteries. There is no demonstrated pulmonary embolism. Prominent main pulmonary artery and the peripheral branches could reflect pulmonary congestion. Pulmonary arterial hypertension is less likely. There is atherosclerotic calcification of the aortic arch with tortuosity. Suboptimal enhancement of the thoracic aorta. Coronary calcifications. No evidence of pericardial effusion. Prominent subcarinal nodes, some of them calcified. No evidence of adenopathy. Filling defects in the azygos vein probably due to flow defects. Normal visualized trachea and bronchi. The lungs are well expanded. Pulmonary venous congestion. Atelectatic changes bilaterally. No focal consolidation is seen. Small right pleural effusion. Nodular density in the left breast better evaluated by mammography. No demonstrated acute osseous changes. The visualized portions of the upper abdomen demonstrate calcified granulomata in the spleen. CT/CTA Chest W/WO Contrast IMPRESSION: 1. No evidence of pulmonary embolism. 2. Atelectatic changes both lower lungs. No focal consolidation is seen. 3. Trace of right pleural effusion. 4. Nodular density in the left breast. Correlation with nonemergent mammography is recommended. Electronically Signed: Pietro Waller MD at 12:25 EDT ,
--- NOTE | 2023-07-04 10:34 | EX.ED.DYSGE1 ---
HPI <MIGUEL ANGEL Lyle - Last Filed: 07/04/23 15:54> History of Present Illness Chief Complaint: Shortness of Breath Narrative Narrative: Patient is an 83-year-old female with history of hypertension who is currently being treated for UTI on Keflex who presents to the emergency department for altered mental status, hypoxia. Patient had a hernia surgery at [facility] Wednesday which was 2 days ago, patient last evening according to her best friend was acting appropriate. This morning when the friend came to check on her, she was difficult to arouse, having difficulty breathing, squad had her hypoxia at 74%. Patient was also slightly confused. No evidence of any trauma. PFSH <MIGUEL ANGEL Lyle - Last Filed: 07/04/23 15:54> [facility] Medical History (Updated 07/04/23 @ 15:54 by MIGUEL ANGEL Lyle) Bilateral lower extremity edema History of abdominal aortic aneurysm (AAA) History of COVID-19 History of skin cancer History of uterine cancer Hyperlipidemia Hypertension Intertriginous dermatitis associated with moisture Obesity Urinary incontinence, mixed Venous insufficiency of both lower extremities Home Medications amlodipine 5 mg tablet See Rx Instructions .Route .COMPLEX #90 TABLETS 04/23/23 [Rx Last Taken Unknown] miconazole nitrate 2 % topical powder (Desenex) 1 applic topical BID #85 grams 04/23/23 [Rx Last Taken Unknown] cephalexin 500 mg tablet 500 mg PO TID #15 tabs 07/02/23 [Rx Last Taken Unknown] oxycodone-acetaminophen 5 mg-325 mg tablet 1 tab PO Q6H PRN pain 07/04/23 [History Last Taken Unknown] Allergy/AdvReac Type Severity Reaction Status Date / Time rosuvastatin [From Crestor] Allergy Severe stomach Verified 07/04/23 10:18 pains shellfish derived Allergy Severe MOUTH SORES Verified 07/04/23 10:18 sulfamethoxazole Allergy Unknown unknown Verified 07/04/23 10:18 [From Bactrim] trimethoprim [From Bactrim] Allergy Unknown unknown Verified 07/04/23 10:18 Family History Son Alcoholism Grandmother No problems noted. Mother Heart disease Hypertension CVA (cerebral vascular accident) Father Cancer throat Surgical History (Updated 07/04/23 @ 15:54 by MIGUEL ANGEL Lyle) History of hernia repair History of hysterectomy Hx of endovascular stent graft for abdominal aortic aneurysm Social History Smoking Status: Never smoker alcohol intake: never substance use type: does not use what type of physical activity do you participate in: walking and aerobics ROS <MIGUEL ANGEL Lyle - Last Filed: 07/04/23 15:54> ROS ED ROS Narrative Constitutional: Negative for fever, chills, weight loss. Positive for weakness Eyes: Negative for vision loss, vision change, double vision ENT: Negative for any sore throat, ear pain, congestion Cardiovascular: Negative for any chest pain, tightness, palpitations Respiratory: Negative for any cough, sputum production, hemoptysis, dyspnea on exertion, orthopnea. Positive for dyspnea Gastrointestinal: Negative for any abdominal pain, nausea, vomiting, diarrhea, constipation, blood in stool, blood in vomit : Negative for any urinary frequency, dysuria, retention, blood in urine Muscle skeletal: Negative for any muscle joint pain, stiffness, myalgias, arthralgias, neck pain, back pain Neurological: Negative for any headache, syncope, numbness or tingling, dizziness Skin: Negative for any rashes, lumps, itching, abrasions, lacerations Psychiatric: Negative for any depression, anxiety, stress, suicidal ideation, homicidal ideation Hematologic: Negative for any easy bruising, excessive bruising, easy bleeding Allergies: Negative for any eczema, hives, rash EXAM <MIGUEL ANGEL Lyle - Last Filed: 07/04/23 15:54> Physical Exam Narrative Exam Narrative: Vital signs reviewed. Patient was 74% on the squad arrival. On my examination patient was on high flow oxygen at 10 at 94%. Patient is alert and oriented x3. HEET: Head normocephalic atraumatic, TMs clear bilaterally. Posterior pharynx is clear, moist mucous membranes. Nares clear bilaterally. Neck: Supple with no lymphadenopathy or tenderness. No signs of meningismus, negative jolt sign. Cardiac: Regular rate and rhythm no murmurs gallops or rubs, equal peripheral pulses bilaterally. Respiratory: Patient has expiratory wheezes, crackles to the mid lobes. This is bilateral, is difficult to hear airflow to the bases. Body habitus does limit examination.. No chest tenderness. Abdomen: Patient does have abdominal binder. Patient is no peritoneal signs. Hypoactive bowel sounds. Patient has no significant redness around the area. Patient does have some erythema, yeast underneath bilateral breast. No abdominal bruit or pulsatile masses. No hepatosplenomegaly Extremities: No peripheral edema, no signs of gross trauma or deformity. Active full range of motion of all extremities. Neuro: Cranial nerves II through XII intact, no focal neurological deficits. Skin: Clean dry and intact with no rash, purpura, petechiae, vesicles or pustules. Backs/flank: No CVA tenderness, no midline spinal tenderness, no deformity. Psych: Normal mood and affect. No SI, HI or acute psychosis. Const Vital Signs: 07/04/23 10:15 07/04/23 10:19 07/04/23 10:37 Temperature 97.8 F Temperature Source Temporal Pulse Rate 76 Respiratory Rate 19 H Respiratory Effort Respiratory Depth Respiratory Pattern Blood Pressure 154/75 H Blood Pressure Mean 101 Pulse Ox 82 89 Oxygen Delivery Method Room Air High Flow Room Air Oxygen Flow Rate (L/min) 10 07/04/23 10:38 07/04/23 11:00 07/04/23 11:00 Temperature Temperature Source Pulse Rate 69 Respiratory Rate 13 Respiratory Effort Short of Breath Respiratory Depth Shallow Respiratory Pattern Tachypnea Normal Blood Pressure Blood Pressure Mean Pulse Ox 99 Oxygen Delivery Method Nasal Cannula High Flow Oxygen Flow Rate (L/min) 10 14 07/04/23 11:29 07/04/23 12:07 07/04/23 12:11 Temperature 96.5 F L Temperature Source Temporal Pulse Rate 71 73 Respiratory Rate 21 H 18 Respiratory Effort Respiratory Depth Respiratory Pattern Blood Pressure 111/73 135/73 H Blood Pressure Mean 85 93 Pulse Ox 97 96 94 Oxygen Delivery Method Nasal Cannula Nasal Cannula Nasal Cannula Oxygen Flow Rate (L/min) 15 10 7 07/04/23 13:00 Temperature Temperature Source Pulse Rate 73 Respiratory Rate 20 H Respiratory Effort Respiratory Depth Respiratory Pattern Blood Pressure Blood Pressure Mean Pulse Ox 90 Oxygen Delivery Method Nasal Cannula Oxygen Flow Rate (L/min) 12 Positive well nourished, well developed and obese General Appearance ED: well developed Nutritional Appearance: obese <Catrachito Fierro MD - Last Filed: 07/04/23 19:11> Physical Exam Const Vital Signs: 07/04/23 10:15 07/04/23 10:19 07/04/23 10:37 Temperature 97.8 F Temperature Source Temporal Pulse Rate 76 Respiratory Rate 19 H Respiratory Effort Respiratory Depth Respiratory Pattern Blood Pressure 154/75 H Blood Pressure Mean 101 Pulse Ox 82 89 Oxygen Delivery Method Room Air High Flow Room Air Oxygen Flow Rate (L/min) 10 07/04/23 10:38 07/04/23 11:00 07/04/23 11:00 Temperature Temperature Source Pulse Rate 69 Respiratory Rate 13 Respiratory Effort Short of Breath Respiratory Depth Shallow Respiratory Pattern Tachypnea Normal Blood Pressure Blood Pressure Mean Pulse Ox 99 Oxygen Delivery Method Nasal Cannula High Flow Oxygen Flow Rate (L/min) 10 14 07/04/23 11:29 07/04/23 12:07 07/04/23 12:11 Temperature 96.5 F L Temperature Source Temporal Pulse Rate 71 73 Respiratory Rate 21 H 18 Respiratory Effort Respiratory Depth Respiratory Pattern Blood Pressure 111/73 135/73 H Blood Pressure Mean 85 93 Pulse Ox 97 96 94 Oxygen Delivery Method Nasal Cannula Nasal Cannula Nasal Cannula Oxygen Flow Rate (L/min) 15 10 7 07/04/23 13:00 Temperature Temperature Source Pulse Rate 73 Respiratory Rate 20 H Respiratory Effort Respiratory Depth Respiratory Pattern Blood Pressure Blood Pressure Mean Pulse Ox 90 Oxygen Delivery Method Nasal Cannula Oxygen Flow Rate (L/min) 12 MDM <MIGUEL ANGEL Lyle - Last Filed: 07/04/23 15:54> [facility] Lab Data Labs: Laboratory Results - last 24 hr 07/04/23 07/04/23 07/04/23 10:30 11:25 12:55 WBC 8.1 RBC 4.48 Hgb 14.1 Hct 44.7 MCV 99.8 H MCH 31.5 MCHC 31.5 L RDW Std Deviation 58.6 H RDW Coeff of Toribio 15.9 H Plt Count 194 MPV 9.3 Immature Gran % (Auto) 1.400 H Neut % (Auto) 81.5 H Lymph % (Auto) 7.8 L Ware % (Auto) 7.4 Eos % (Auto) 1.0 Baso % (Auto) 0.9 Absolute Neuts (auto) 6.6 Absolute Lymphs (auto) 0.63 L Nucleated RBC % 0 PT 12.9 INR 1.0 APTT 24.2 Sodium 138 Potassium 5.2 H Chloride 104 Carbon Dioxide 30.0 Anion Gap 4 L BUN 26 H Creatinine 1.15 H Estim Creat Clear Calc 33.13 Est GFR (MDRD) Af Amer 58 L Est GFR (MDRD) Non-Af 48 L BUN/Creatinine Ratio 22.6 H Glucose 126 H Lactic Acid 0.8 Calcium 8.4 L Total Bilirubin 0.30 AST 21 ALT 25 Alkaline Phosphatase 109 Troponin I High Sens 64 H 125 H* B-Natriuretic Peptide 397.9 H Total Protein 7.1 Albumin 3.2 Globulin 3.9 Albumin/Globulin Ratio 0.8 L Urine Color Yellow Urine Clarity Clear Urine pH 5.0 Ur Specific [place] 1.020 Urine Protein Negative Urine Glucose (UA) Normal Urine Ketones Negative Urine Occult Blood 10 H Urine Nitrite Negative Urine Bilirubin Negative Urine Urobilinogen Normal Ur Leukocyte Esterase 25 H Urine RBC 0 SEEN Urine WBC 5-10 SEEN Ur Squamous Epith Cells 0-5 SEEN Urine Bacteria 1+ Urine Mucus 0 SEEN ABG Data ABG results: ABG 07/04/23 13:33 Specimen Type ART Sample Site L Radial pH 7.44 Bicarbonate Actual 25.7 Total CO2 27 Base Excess 2 O2 Saturation 94 L ABG pCO2 37.8 ABG pO2 68 L Branden Test Positive O2 Delivery Device HFNC Liter Flow 12.0 Radiography Diagnostic Testing: Clinical Impression(s) from Imaging Studies Chest X-Ray 07/04/23 10:26 IMPRESSION: No radiographic evidence of acute cardiopulmonary disease. Electronically Signed: Pietro Waller MD at 11:31 EDT Reading Location ID and State: [facility] / [place] Tel , Service support , Chest CTA 07/04/23 10:27 IMPRESSION: 1. No evidence of pulmonary embolism. 2. Atelectatic changes both lower lungs. No focal consolidation is seen. 3. Trace of right pleural effusion. 4. Nodular density in the left breast. Correlation with nonemergent mammography is recommended. Electronically Signed: Pietro Waller MD at 12:25 EDT , Abdomen/Pelvis CT 08/27/23 14:29 IMPRESSION: 1. Focal stranding in the subcutaneous fat of the anterior abdominal wall with pockets of air in the anterior abdominal wall with small pockets of air extending into the peritoneal cavity could be due to recent repair. Ill-defined peritoneal density extending to the anterior abdominal wall concerning for focal inflammatory process. No drainable abscess is seen. 2. Cholelithiasis. 3. Small hiatal hernia. 4. Endoluminal aortic stent. Electronically Signed: Pietro Waller MD at 15:34 EDT , EKG EKG shows normal sinus rhythm rate of 71: Attestation: I personally reviewed and interpreted this EKG as follows: Comments: Rate of 71, IN interval 170 ms, QRS duration 94 ms, no acute ST elevation, no acute infarct noted. Treatment and Re-Evaluation :: Patient arrives in mild to moderate distress, patient was hypoxic, patient on initial evaluation on high flow oxygen is 94%, heart rate 70. Patient alert and orient x3. Presenting to the emergency department with shortness of breath, altered mental status. Patient did have a hernia repair 2 days ago, secondary the patient's coarse breath sounds, altered mental status, recent surgery, patient received a septic work-up including 2 sets of blood cultures. Patient also received cardiac work-up, proBNP troponin. This is concerning for any cardiac involvement. Patient will receive a CTA of the chest to rule out any pulmonary embolus. Patient does have a known UTI is on Keflex, urine will be collected to ensure proper clearing. Is likely the patient will be admitted to the hospital. Patient is alert and orient x4. Cold, patient's abdominal exam was unremarkable. I have low suspicion for any free air this patient has no pain throughout the abdomen only where her incision site is. Patient laboratory values show a normal CBC, patient's chemistries show potassium of 5.2 which is slightly elevated. Creatinine 1.15 with a GFR of 48, patient's BNP is slightly elevated 397 with a troponin of 64, repeat was 125, is concerning for NSTEMI, I do believe this secondary to hypoxia. Patient received a third troponin. Patient's 2 view chest x-ray was unremarkable, patient's respiratory bio fire such as COVID-19 and influenza was negative. I did perform a CTA of the chest, this showed no evidence of pulmonary embolism. Atelectatic changes both lower lungs, no focal consolidation is seen. Trace of right pleural effusion. Patient's respiratory arterial blood gas showed normal pH, patient's CO2 and bicarb are normal. Patient's oxygen is 67.7. Patient remains on 10 L of high flow nasal cannula oxygen. At this time, is no evidence of any pulmonary embolus, dissection, pneumonia, viral-like illness. Patient does not anemic. She is not septic. Lactic acid was negative. At this time I spoke with the admitting physician who would like to do a CT scan of the abdomen pelvis without contrast. Patient received a CT scan of the abdomen pelvis, this shows focal stranding in the subcutaneous fat of the anterior abdominal wall with pockets of air in the anterior abdominal wall with small pockets of air extending to the peritoneal cavity could be due to recent repair. Cholelithiasis. Small hiatal hernia, I spoke with the hospitalist again, the surgeon that did her hernia surgery on Wednesday Dr. Enciso looked at the scan, he thinks that this is the normal stage of healing. He does not see any acute process. At this time, the patient is stable for admission to the ICU, she will be given aspirin, hospitalist will accept. Patient stable for admission. <Catrachito Fierro MD - Last Filed: 07/04/23 19:11> [facility] MDM Narrative Medical decision making narrative: Dr. Fierro: I have personally performed a face to face assessment of the patient and have reviewed the SILAS Note. I performed a substantive portion of the visit including all aspects of the following. My morales findings include: History is recent abdominal surgery, change in mental status, found to be hypoxic by friend. She states that after surgery, patient had hypoxia previously and had to be on oxygen for almost did. Exam is afebrile. Vital signs noted. Abdomen soft with appropriate tenderness. Positive abdominal binder. Regular rate and rhythm. Lungs clear to auscultation bilaterally. Medical Decision Making: Check labs. Check chest x-ray. Check CT a for pulmonary embolism given recent surgery. Elevated troponin. Discussed with hospitalist. CT abdomen and pelvis obtained. Discussed and reviewed with patient's surgeon Dr. Mendez Enciso. Okay to admit to ICU here. Disposition is admit in guarded condition. Other additions or changes: [None] History & Record Review Discussion w/independent historian: Patient and Friend Additional record(s) reviewed:: Prior outpatient record Lab Data Attestation: I reviewed the patient's lab results. Labs: Laboratory Results - last 24 hr 07/04/23 07/04/23 07/04/23 10:30 11:25 12:55 WBC 8.1 RBC 4.48 Hgb 14.1 Hct 44.7 MCV 99.8 H MCH 31.5 MCHC 31.5 L RDW Std Deviation 58.6 H RDW Coeff of Toribio 15.9 H Plt Count 194 MPV 9.3 Immature Gran % (Auto) 1.400 H Neut % (Auto) 81.5 H Lymph % (Auto) 7.8 L Ware % (Auto) 7.4 Eos % (Auto) 1.0 Baso % (Auto) 0.9 Absolute Neuts (auto) 6.6 Absolute Lymphs (auto) 0.63 L Nucleated RBC % 0 PT 12.9 INR 1.0 APTT 24.2 Sodium 138 Potassium 5.2 H Chloride 104 Carbon Dioxide 30.0 Anion Gap 4 L BUN 26 H Creatinine 1.15 H Estim Creat Clear Calc 33.13 Est GFR (MDRD) Af Amer 58 L Est GFR (MDRD) Non-Af 48 L BUN/Creatinine Ratio 22.6 H Glucose 126 H Lactic Acid 0.8 Calcium 8.4 L Total Bilirubin 0.30 AST 21 ALT 25 Alkaline Phosphatase 109 Troponin I High Sens 64 H 125 H* B-Natriuretic Peptide 397.9 H Total Protein 7.1 Albumin 3.2 Globulin 3.9 Albumin/Globulin Ratio 0.8 L Urine Color Yellow Urine Clarity Clear Urine pH 5.0 Ur Specific [place] 1.020 Urine Protein Negative Urine Glucose (UA) Normal Urine Ketones Negative Urine Occult Blood 10 H Urine Nitrite Negative Urine Bilirubin Negative Urine Urobilinogen Normal Ur Leukocyte Esterase 25 H Urine RBC 0 SEEN Urine WBC 5-10 SEEN Ur Squamous Epith Cells 0-5 SEEN Urine Bacteria 1+ Urine Mucus 0 SEEN ABG Data ABG results: ABG 07/04/23 13:33 Specimen Type ART Sample Site L Radial pH 7.44 Bicarbonate Actual 25.7 Total CO2 27 Base Excess 2 O2 Saturation 94 L ABG pCO2 37.8 ABG pO2 68 L Branden Test Positive O2 Delivery Device HFNC Liter Flow 12.0 Radiography Diagnostic Testing: Clinical Impression(s) from Imaging Studies Chest X-Ray 07/04/23 10:26 IMPRESSION: No radiographic evidence of acute cardiopulmonary disease. Electronically Signed: Pietro Waller MD at 11:31 EDT Reading Location ID and State: [facility] / [place] Tel , Service support , Chest CTA 07/04/23 10:27 IMPRESSION: 1. No evidence of pulmonary embolism. 2. Atelectatic changes both lower lungs. No focal consolidation is seen. 3. Trace of right pleural effusion. 4. Nodular density in the left breast. Correlation with nonemergent mammography is recommended. Electronically Signed: Pietro Waller MD at 12:25 EDT Reading Location ID and State: [facility] / [place] Tel , Service support , Abdomen/Pelvis CT 07/04/23 14:29 IMPRESSION: 1. Focal stranding in the subcutaneous fat of the anterior abdominal wall with pockets of air in the anterior abdominal wall with small pockets of air extending into the peritoneal cavity could be due to recent repair. Ill-defined peritoneal density extending to the anterior abdominal wall concerning for focal inflammatory process. No drainable abscess is seen. 2. Cholelithiasis. 3. Small hiatal hernia. 4. Endoluminal aortic stent. Electronically Signed: Pietro Waller MD at 15:34 EDT , Management Discussion w/another healthcare provider: Hospitalist and Parts Puller (Dr. 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
[2023-07-04 10:51] LABS: Absolute Lymphocyte Count 0.63 X10^3/uL (0.83-4.51); Absolute Neutrophil Count 6.6 X10^3/uL (2.0-7.7); Basophil# 0.07 X10^3/uL; Basophil% 0.9 % (0-1); Eosinophil# 0.08 X10^3/uL; Hematocrit 44.7 % (37-47); Hemoglobin 14.1 g/dL (12.0-15.0); Lymphocyte # 0.63 X10^3/ul (0.83-4.51); Lymphocyte % 7.8 % (19-41); Mean Corp Hgb Conc 31.5 g/dL (32-36); Mean Corpuscular Hgb 31.5 pg (27.0-32.0); Mean Corpuscular Volume 99.8 fL (81-99); Mean Platelet Vol. 9.3 fl (6.2-12.0); Monocyte% 7.4 % (0-10); NRBC Flagged by Analyzer 0 % (0-5); Neutrophil # 6.58 X10^3/uL (2.7-7.7); Neutrophil % 81.5 % (47-70); Platelet Count 194 K/mm3 (150-450); RBC Distribution Width CV 15.9 % (11.6-14.6); RBC Distribution Width SD 58.6 fl (35.1-43.9); Red Blood Count 4.48 M/mm3 (4.2-5.4); White Blood Count 8.1 K/mm3 (4.4-11.0)
[2023-07-04] MEDS: Ipratropium/Albuterol Sulfate 3 ML AMPUL.NEB INHALATION (10:59)
[2023-07-04] MEDS: Albuterol 2.5 MG/3 ML VIAL.NEB. INHALATION (10:59)
[2023-07-04 11:00] LABS: Prothrombin Time (Protime)PT. 12.9 SECONDS (11.7-14.9)
[2023-07-04 11:01] LABS: Partial Thromboplast Time 24.2 Seconds (24.1-36.2)
[2023-07-04 11:06] LABS: ALB/GLOB Ratio 0.8 RATIO (0.9-2.4); AST(SGOT) 21 U/L (15-37); Alanine Aminotransfer ALT/SGPT 25 U/L (13-56); Albumin, Serum 3.2 g/dL (3.2-5.0); Alkaline Phosphatase 109 U/L (45-117); Anion Gap 4 (5-15); BUN 26 mg/dL (7-18); BUN/Creat Ratio 22.6 RATIO (10-20); Calcium,Total 8.4 mg/dL (8.5-10.1); Chloride 104 mmol/L (98-107); Creatinine, Serum 1.15 mg/dL (0.55-1.02); EST Glomerular Filtration Rate 48 mL/min (>60); Est Glom Filt Rate - Afr Amer 58 mL/min (>60); Estimated Creatinine Clearance 33.13 ml/min; Globulin 3.9 g/dL (2.2-4.2); Glucose 126 mg/dL (74-106); Potassium 5.2 mmol/L (3.5-5.1); Protein, Total 7.1 g/dL (6.4-8.2); Sodium Level 138 mmol/L (136-145); Troponin-I HS (w/2H Reflex) 64 pg/mL (3.0-54.0)
[2023-07-04 11:15] LABS: Lactic Acid 0.8 mmol/L (0.4-1.9)
[2023-07-04 11:24] LABS: BNP,B-Type NATRIURETIC PEPTIDE 397.9 pg/mL (0-100)
[2023-07-04 11:32] LABS: Mucous, Urine 0 SEEN /hpf (<or=2+); Red Blood Cells-Urine 0 SEEN /hpf (0-5)
[2023-07-04 11:35] LABS: Color, Urine Yellow (Yellow); Glucose, Dipstick Normal (Normal); Ketone-Dipstick Negative (Negative); Leukocyte Esterase-Dipstick 25 /ul (Negative); Nitrite-Dipstick Negative (Negative); Occult Blood-Urine 10 /ul (Negative); Protein-Dipstick Negative (Negative); Urine Bilirubin Dipstick Negative (Negative); Urine Clarity Clear (Clear); Urine Urobilinogen Normal (Normal)
[2023-07-04 11:52] LABS: Bacteria 1+ /hpf (None Seen); Squamous Epithelial Cells - UA 0-5 SEEN /hpf (5-10)
[2023-07-04 11:53] LABS: White Blood Cells 5-10 SEEN /hpf (0-5)
[2023-07-04 12:37] LABS: Reflex Troponin-HS? (from REC) Y
[2023-07-04] MEDS: Acetaminophen 325 MG Tablet 650 MG PO (13:12)
[2023-07-04 13:25] LABS: Troponin-I HS 125 pg/mL (3.0-54.0)
[2023-07-04 13:37] LABS: Allen Test Positive; Base Excess 2 mmol/L (-2 to +2); Bicarbonate 25.7 mmol/L (22-26); Blood Gas Specimen Type ART; O2 Delivery Device HFNC; PO2 68 mmHG (75-100); SITE L Radial; SO2 94 % (95-99); Total Carbon Dioxide 27 mmol/L; pCO2 37.8 mmHg (35-45); pH 7.44 (7.35-7.45)
--- NOTE | 2023-07-04 14:04 | PCM.HP.STD ---
HPI - General General Date of Admission: 07/04/23 Date of Service: 07/04/23 Chief Complaint: Encephalopathy, hypoxia. HPI Narrative The patient is an 83 y/o F w/ PMHx: Hx Uterine CA s/p radiation/resection, Chronic BL LE Lymphedema, BL LE Venous stasis disease, Obesity, HTN, HLD, Hx AAA s/p endovascular repair/stent, Hx COVID-19, recent treatment outpatient for urinary tract infection on Keflex therapy with reportedly a hernia surgery at the [facility] facility 2 days prior to current presentation and unfortunately this morning when she was checked on by her friend she was unarousable and evident respiratory distress with hypoxia of 74% and confused prompting ED transition for evaluation. Patient currently following improvement in her oxygenation alert, oriented and able to tell where she is, recent events, month, year but still feels off and fatigued. She denies any specific chest pain or any marked abdominal pain beyond what she has had status post recent OR. She notes that she originally had surgery about a year ago by Dr. Enciso and this was a redo recently. Work-up in the ED included T97.8, heart rate 76, BP 154/75, respiratory rate 19, initially 82% on room air transition to high flow noted to be 89% on 10 L now transitioned to 12 L noted to be 90%, CBC with WC 8.1, hemoglobin 14.1, platelet 194 with lymphopenia however increased immature granulocytes, unremarkable coags, ABG with O2 saturation 94%, PO2 68, PCO2 37.8 performed on 12 L, CMP with potassium 5.2 not noted to be hemolyzed, BUN/creatinine 26/1.15, glucose 126, lactic acid 0.8, calcium 8.4, hepatic profile not marked appearing, BNP 597.9, troponin initial 64 with repeat 125, urinalysis with specific gravity 1.020 with noted nitrite negative, leukocytes only 25 however does have 5-10 urine WBCs with 1+ bacteria, urine culture pending per ED, blood culture x2 pending per ED, SARS COVID and influenza antigen rapid's both negative, chest x-ray with no acute cardiopulmonary findings, follow-up CTPA with no evidence of pulmonary embolism, atelectatic changes in both lungs but no consolidation, trace right pleural effusion, nodular density left breast, EKG with sinus rhythm with no acute evidence of ischemia. In the ED patient administered DuoNeb therapy, Tylenol as well as albuterol. Given unclear etiology for significant hypoxia COVID PCR requested and also discussed case with ED staff given recent operative intervention in the abdomen although soft and lactic acid is normal suggested CT noncontrast given recent CTA and underlying renal disease be obtained to assure no intra-abdominal findings prior to any consideration for aspirin and heparin drip given elevated troponins. Daughter is present and specifically requesting to wait for cardiac consult until she can verify if Dr. Bullard is available. [facility] Medical History (Updated 07/04/23 @ 14:[address] Dee Dee Jean MD) Bilateral lower extremity edema History of abdominal aortic aneurysm (AAA) History of COVID-19 History of skin cancer History of uterine cancer Hyperlipidemia Hypertension Intertriginous dermatitis associated with moisture Obesity Urinary incontinence, mixed Venous insufficiency of both lower extremities Home Medications amlodipine 5 mg tablet See Rx Instructions .Route .COMPLEX #90 TABLETS 04/23/23 [Rx Last Taken Unknown] miconazole nitrate 2 % topical powder (Desenex) 1 applic topical BID #85 grams 04/23/23 [Rx Last Taken Unknown] cephalexin 500 mg tablet 500 mg PO TID #15 tabs 07/02/23 [Rx Last Taken Unknown] oxycodone-acetaminophen 5 mg-325 mg tablet 1 tab PO Q6H PRN pain 07/04/23 [History Last Taken Unknown] Allergy/AdvReac Type Severity Reaction Status Date / Time rosuvastatin [From Crestor] Allergy Severe stomach Verified 07/04/23 10:18 pains shellfish derived Allergy Severe MOUTH SORES Verified 07/04/23 10:18 sulfamethoxazole Allergy Unknown unknown Verified 07/04/23 10:18 [From Bactrim] trimethoprim [From Bactrim] Allergy Unknown unknown Verified 07/04/23 10:18 Family History Son Alcoholism Grandmother No problems noted. Mother Heart disease Hypertension CVA (cerebral vascular accident) Father Cancer throat Surgical History (Updated 07/04/23 @ 14:[address] Dee Dee Jean MD) History of hernia repair History of hysterectomy Hx of endovascular stent graft for abdominal aortic aneurysm Social History Smoking Status: Never smoker alcohol intake: never substance use type: does not use what type of physical activity do you participate in: walking and aerobics ROS ROS Narrative Admission Review of Systems: CONSTITUTIONAL: No weight loss, fever, chills, + weakness or fatigue. HEENT: Eyes: No visual loss, blurred vision, double vision or yellow sclerae. Ears, Nose, Throat: No hearing loss, sneezing, congestion, runny nose or sore throat. SKIN: No rash or itching, lesions, wounds. CARDIOVASCULAR: No chest pain, chest pressure or chest discomfort, palpitations, edema, orthopnea, syncopal events. RESPIRATORY: + shortness of breath, No cough or sputum, wheezing, hemoptysis. GASTROINTESTINAL: + anorexia, expected abdominal discomfort with recent OR, No nausea, vomiting, diarrhea, melena, BRBPR. GENITOURINARY: + Recent UTI dx, denies any marked current dysuria, frequency, urgency or retention. NEUROLOGICAL: + Encephalopathy/confusion, improved, No headache, dizziness, syncope, paralysis, ataxia, numbness or tingling in the extremities, focal weakness, change in bowel or bladder control, seizure. MUSCULOSKELETAL: + muscle, back pain, joint pain or stiffness. HEMATOLOGIC: No anemia, bleeding or bruising. LYMPHATICS: No enlarged nodes. No history of splenectomy. PSYCHIATRIC: No history of depression or anxiety. ENDOCRINOLOGIC: No reports of sweating, cold or heat intolerance. No polyuria or polydipsia. ALLERGIES: No history of asthma, hives, eczema or rhinitis. Vital Signs Vital Signs Vital Signs: 07/04/23 10:15 07/04/23 10:19 07/04/23 10:37 Temperature 97.8 F Temperature Source Temporal Pulse Rate 76 Respiratory Rate 19 H Respiratory Effort Respiratory Depth Respiratory Pattern Blood Pressure 154/75 H Blood Pressure Mean 101 Pulse Ox 82 89 Oxygen Delivery Method Room Air High Flow Room Air Oxygen Flow Rate (L/min) 10 07/04/23 10:38 07/04/23 11:00 07/04/23 11:00 Temperature Temperature Source Pulse Rate 69 Respiratory Rate 13 Respiratory Effort Short of Breath Respiratory Depth Shallow Respiratory Pattern Tachypnea Normal Blood Pressure Blood Pressure Mean Pulse Ox 99 Oxygen Delivery Method Nasal Cannula High Flow Oxygen Flow Rate (L/min) 10 14 07/04/23 11:29 07/04/23 12:07 07/04/23 12:11 Temperature 96.5 F L Temperature Source Temporal Pulse Rate 71 73 Respiratory Rate 21 H 18 Respiratory Effort Respiratory Depth Respiratory Pattern Blood Pressure 111/73 135/73 H Blood Pressure Mean 85 93 Pulse Ox 97 96 94 Oxygen Delivery Method Nasal Cannula Nasal Cannula Nasal Cannula Oxygen Flow Rate (L/min) 15 10 7 07/04/23 13:00 Temperature Temperature Source Pulse Rate 73 Respiratory Rate 20 H Respiratory Effort Respiratory Depth Respiratory Pattern Blood Pressure Blood Pressure Mean Pulse Ox 90 Oxygen Delivery Method Nasal Cannula Oxygen Flow Rate (L/min) 12 Weight Weight: 211 lb 9 oz Body Mass Index (BMI) 36.3 Physical Exam Narrative Physical Examination: General: Awake, alert, oriented x [address], month, year, notably improved but is currently maintaining appropriate saturations low 90s on oxygen and had been significantly hypoxic previously when she was encephalopathic Skin: Normal color, normal turgor, no icterus, no cyanosis except for occasional staged ecchymoses as well as recent abdominal hernia repair with abdominal incision where appearing with no drainage. HEENT: AT/NC, EOMI, PERRLA, dry MM, no carotid bruits or JVD noted. Lungs: Notably diminished, greater bases, no overt respiratory distress noted, currently maintaining low 90s on high flow, no rales, ronchi or wheezing. Heart: Currently regular rate and rhythm; no gallop, rub audible. Abdomen: Soft, obese, expected tenderness to palpation given recent MR but no rebound or guarding, incision well-appearing with no drainage, no marked distention, hypoactive BS, no obvious HSM. Extremities: No cyanosis, no clubbing, mild peripheral edema but not markedly pitting and from records chronic. Neurological: Patient awake, alert, oriented as noted, significantly improved, cognitive function near baseline intact per family present and markedly improved; pupils equally reactive to light and accommodation, cranial nerves grossly normal, moving all 4 extremities, no focal deficits, strength severely global decrease secondary to acute presentation but improving Psychiatric: Affect appears flat, no acute evidence of depressive or anxiety feelings. Results Lab / Micro Data 07/04/23 10:30 07/04/23 10:30 Labs: Laboratory Results - last 24 hr 07/04/23 10:30: WBC 8.1, RBC 4.48, Hgb 14.1, Hct 44.7, MCV 99.8 H, MCH 31.5, MCHC 31.5 L, RDW Std Deviation 58.6 H, RDW Coeff of Toribio 15.9 H, Plt Count 194, MPV 9.3, Immature Gran % (Auto) 1.400 H, Neut % (Auto) 81.5 H, Lymph % (Auto) 7.8 L, Hill % (Auto) 7.4, Eos % (Auto) 1.0, Baso % (Auto) 0.9, Absolute Neuts (auto) 6.6, Absolute Lymphs (auto) 0.63 L, Nucleated RBC % 0, PT 12.9, INR 1.0, APTT 24.2, Sodium 138, Potassium 5.2 H, Chloride 104, Carbon Dioxide 30.0, Anion Gap 4 L, BUN 26 H, Creatinine 1.15 H, Estim Creat Clear Calc 33.13, Est GFR (MDRD) Af Amer 58 L, Est GFR (MDRD) Non-Af 48 L, BUN/Creatinine Ratio 22.6 H, Glucose 126 H, Lactic Acid 0.8, Calcium 8.4 L, Total Bilirubin 0.30, AST 21, ALT 25, Alkaline Phosphatase 109, Troponin I High Sens 64 H, B-Natriuretic Peptide 397.9 H, Total Protein 7.1, Albumin 3.2, Globulin 3.9, Albumin/Globulin Ratio 0.8 L 07/04/23 11:25: Urine Color Yellow, Urine Clarity Clear, Urine pH 5.0, Ur Specific [place] 1.020, Urine Protein Negative, Urine Glucose (UA) Normal, Urine Ketones Negative, Urine Occult Blood 10 H, Urine Nitrite Negative, Urine Bilirubin Negative, Urine Urobilinogen Normal, Ur Leukocyte Esterase 25 H, Urine RBC 0 SEEN, Urine WBC 5-10 SEEN, Ur Squamous Epith Cells 0-5 SEEN, Urine Bacteria 1+, Urine Mucus 0 SEEN 07/04/23 12:55: Troponin I High Sens 125 H* Micro: Microbiology 07/04/23 11:31 Nasal Secretion SARS-CoV-2 & FLU Antigen (Rapid) - Final ABG Data ABG results: ABG 07/04/23 13:33 Specimen Type ART Sample Site L Radial pH 7.44 Bicarbonate Actual 25.7 Total CO2 27 Base Excess 2 O2 Saturation 94 L ABG pCO2 37.8 ABG pO2 68 L Branden Test Positive O2 Delivery Device HFNC Liter Flow 12.0 Radiology Impression Chest X-Ray 07/04/23 10:26 IMPRESSION: No radiographic evidence of acute cardiopulmonary disease. Electronically Signed: Pietro Waller MD at 11:31 EDT , Chest CTA 07/04/23 10:27 IMPRESSION: 1. No evidence of pulmonary embolism. 2. Atelectatic changes both lower lungs. No focal consolidation is seen. 3. Trace of right pleural effusion. 4. Nodular density in the left breast. Correlation with nonemergent mammography is recommended. Electronically Signed: Pietro Waller MD at 12:25 EDT , Assessment & Plan Assessment/Plan (1) Encephalopathy: PLAN: Plan The patient is an 83 y/o F w/ PMHx: Hx Uterine CA s/p radiation/resection, Chronic BL LE Lymphedema, BL LE Venous stasis disease, Obesity, HTN, HLD, Hx AAA s/p endovascular repair/stent, Hx COVID-19, recent treatment outpatient for urinary tract infection on Keflex therapy with reportedly a hernia surgery at the [facility] facility 2 days prior to current presentation and unfortunately this morning when she was checked on by her friend she was unarousable and evident respiratory distress with hypoxia of 74% and confused prompting ED transition for evaluation. #1. Acute Encephalopathy secondary to Acute Hypoxic Respiratory Failure, complicated by #2 as noted with Recent Hernia Repair (2 days prior [facility] [place]), Unclear etiology but given CTPA/CXR unremarkable, concerns for abdominal possible contributing etiology although lactic acid is normal: Discussed at length current presentation with ED staff and suggested strongly CT abdomen without contrast given CTPA was already obtained and patient does have underlying CKD stage III with creatinine clearance 33 to assure no overt obvious intra-abdominal finding and if this seems unremarkable then would plan to admit potentially to ICU given significant hypoxia for unclear etiology, likely transition to Airvo and if necessary certainly could transition to BiPAP at this time PCO2 is normal and maintaining at least in the low 90s on high flow, given no marked overload on films nor significant peripheral edema or recent weight gain low suspicion for failure however certainly could pulse dose with IV Lasix x1 and continue to monitor, COVID PCR requested, will obtain full respiratory viral panel, will maintain on PRN albuterol, wean supplementation as able as noted, will request pulmonary assessment, encourage I-S and head of bed. #2. Acute NSTEMI suspected primarily type II demand with given significant hypoxia: EKG in ED w/ sinus rhythm with no acute evidence of ischemia, CXR w/ no acute cardiopulmonary findings, follow-up CTPA with no overt finding. Trop elevated, initially 64 however repeat doubled to 125. Will admit to PCU, maintain on a monitored bed, continue serial cardiac enzymes and EKGs. Obtain magnesium level upon admission. If no intra-abdominal findings will initiate on heparin drip until clarify direction of trending. As long as no intra-abdominal concerning findings as noted with admission to [facility], would continue medical management w/ asa, hold on beta-kathryn immediate addition given significant respiratory issues currently but certainly low threshold to add low-dose once appropriate, noted statin intolerance w/ AM FLP. ECHO requested. Patient daughter present and patient and her daughter note intention to contact Dr. Bullard 07/05/23 to assure he is available and would obtain consult at that time if appropriate. #3. Recent reported urinary tract infection, complicated: Patient recently treated outpatient for urinary tract infection although urinalysis here as noted not marked appearing, reportedly had been on Keflex, urine culture is pending here in the interim to be cautious with transition to IV Zosyn given concurrent recent abdominal surgery and no obvious source of her dyspnea presentation with normal CXR/normal CTPA until culture resulted and assure no intra-abdominal findings. #4. Incidentally noted nodular density left breast: Noted on CTPA, may consider outpatient nonemergent mammography. #5. Mild hyperkalemia: Admission potassium 5.2, not noted to be hemolyzed, given presentation we will continue treatment as noted and will repeat BMP later however if further elevated or not improving may need to consider Kayexalate and hyperkalemia protocol with repeat BMP trending. #6. Chronic Kidney Disease Stage III, unclear subtype: Admission BUN/Cr 26/1.1, baseline renal function 0.9-1.1, repeat BMP in AM. #7. Chronic bilateral lower extremity lymphedema: On evaluation in the ED bilateral lower extremities not marked appearing, we will place snug Aneudy wraps with elevation. #8. Obesity: Weight loss and lifestyle changes encouraged. #9. Hypertension: Continue home regimen including amlodipine, PRN hydralazine. #10. Hyperlipidemia: Not on regimen but clarifying, FLP in a.m., noted intolerance with abdominal cramping with statin therapy. #11. History AAA: Status post endovascular stent, will continue aspirin if no intra-abdominal findings, not on statin therapy but clarifying, hypertensive regimen as BP allows. #12. Hx Uterine CA: s/p radiation/resection, considered in remission. #13. DVT prophylaxis: Heparin drip if no intra-abdominal findings. #14. CODE status: Patient SHUBHAM is her daughter and also son, daughter is present currently and living will is currently in place. Discussed CODE status at length including difference between FULL code, DNR-CCA and DNR-CC status. Following discussions about the differences in these status, requested Full Code status but noted only short term and would not want prolonged interventions if likely no good outcome. Advanced Care Planning Face to Face Time: 16 minutes. Charges/Coding Visit Charges Inpatient E&M: 93559 Init Hosp L3 Procedures Hospitalists Procedures: 90599 Advncd Care Plan 30 Min
--- NOTE | 2023-07-04 14:29 | CT_ITS ---
INDICATION: Pain EXAMINATION: CT ABDOMEN AND PELVIS WITHOUT CONTRAST - CT Abdomen And Pelvis W/O Contrast Injection TECHNIQUE: Helically acquired images were obtained of the abdomen and pelvis without oral or IV contrast. A radiation dose optimization technique was used for this scan. IV Contrast dosage and agent: None. Oral contrast: None. RADIATION DOSAGE (If Supplied By Facility): CTDIvol = ( 11.49 ) mGy, DLP = ( 751.97 ) mGycm COMPARISON: 09/25/2022. FINDINGS: LOWER CHEST: Atelectatic changes in the lower lungs and small right pleural effusion. No cardiomegaly or pericardial effusion. LIVER: Homogeneous. No focal mass. GALLBLADDER AND BILIARY TREE: Multiple calcified gallstones. No gallbladder distension or wall edema. No intra- or extrahepatic biliary ductal dilation. PANCREAS: No focal cystic or solid mass. SPLEEN: Calcified granulomata. No evidence of splenomegaly. ADRENAL GLANDS: No nodules. KIDNEYS AND URETERS: Normal renal size and position. Contrast in the pelvicalyceal systems from recent contrast study. No evidence of hydronephrosis. PERITONEUM: Moderate stranding in the subcutaneous fat of the anterior abdominal wall with pockets of air extending into the peritoneum. Adjacent peritoneal soft tissue density measuring about 3 cm extending to the anterior abdominal wall. No free fluid is seen. No other fluid collection. BOWEL: Small hiatal hernia. Normal in caliber small bowel loops. Fecal retention. Unremarkable appendix. LYMPH NODES: No enlarged mesenteric or retroperitoneal lymph nodes. VESSELS: Endoluminal aortic stent through an abdominal aortic aneurysm unchanged since the prior examination suboptimally evaluated without contrast. URINARY BLADDER: Unremarkable. REPRODUCTIVE ORGANS: Absent uterus consistent with previous hysterectomy. ABDOMINAL WALL: Surgical clips the bilateral groin regions from previous hernia repair. Mild stranding subcutaneous fat. BONES: Degenerative changes of the spine. Mild retrolisthesis of L2 over L3. CT/Abdomen/Pelvis without Cont IMPRESSION: 1. Focal stranding in the subcutaneous fat of the anterior abdominal wall with pockets of air in the anterior abdominal wall with small pockets of air extending into the peritoneal cavity could be due to recent repair. Ill-defined peritoneal density extending to the anterior abdominal wall concerning for focal inflammatory process. No drainable abscess is seen. 2. Cholelithiasis. 3. Small hiatal hernia. 4. Endoluminal aortic stent. Electronically Signed: Pietro Waller MD at 15:34 EDT ,
[2023-07-04] MEDS: 0.9% Normal Saline 1,000 ML 200 ML IV (14:36)
--- NOTE | 2023-07-04 15:27 | EKG12_ITS ---
Test Reason : REPEAT Blood Pressure : / mmHG Vent. Rate : 066 BPM Atrial Rate : 066 BPM P-R Int : 174 ms QRS Dur : 092 ms QT Int : 408 ms P-R-T Axes : 071 -20 072 degrees QTc Int : 427 ms Normal sinus rhythm Normal ECG Confirmed by BRYNN SHELTON, VICK ([id number]), book or script editor RIA MOCK ([id number]) on 08/13/2023 12:35:44 PM Referred By: Confirmed By:SYMONE SWAIN MD
[2023-07-04] MEDS: Ondansetron 4 MG/2 ML Vial IV (16:14)
--- NOTE | 2023-07-04 16:50 | ECHOD_ITS ---
Reason For Study: NSTEMI Procedure This was a 2D Doppler, Color Flow transthoracic echocardiogram. The study was technically difficult. Patient declined use of definity. Exam performed portable in ICU/CCU. Left Ventricle Normal LV size. The estimated ejection fraction is 65 %. Diastolic function is indeterminate. No regional wall motion abnormalities noted. Right Ventricle Normal RV size. Normal systolic function. Atria Normal left atrium. Normal right atrium. No doppler evidence for ASD. Mitral Valve There is no mitral valve stenosis. No mitral valve insufficiency. Tricuspid Valve There is no tricuspid stenosis. Trivial tricuspid valve insufficiency. Pulmonary artery systolic pressure is 50 mmHg. Aortic Valve Trisinus/trileaflet aortic valve. There is no aortic stenosis. No aortic valve insufficiency. Pulmonic Valve There is no pulmonic valvular stenosis. No pulmonic valve insufficiency. Great Vessels Normal aortic root. Pericardium/Pleural No pericardial effusion. MMode/2D Measurements & Calculations LVIDd: 5.3 cm IVSd: 1.00 cm LAV(MOD-bp): 52.6 ml LVIDs: 3.4 cm LVPWd: 1.1 cm LAV(MOD-bp) Indexed: 26.3 ml/m2 FS: 35.9 % LAV(MOD-sp2): 36.6 ml LAV(MOD-sp4): 58.7 ml SV(MOD-sp4): 64.2 ml SV(sp4-el): 65.6 ml LVAd ap4: 28.6 cm2 LVLd ap4: 7.6 cm EDV(MOD-sp4): 93.3 ml EDV(sp4-el): 91.6 ml LVAs ap4: 13.1 cm2 LVLs ap4: 5.6 cm ESV(MOD-sp4): 29.1 ml ESV(sp4-el): 26.0 ml EF(MOD-sp4): 68.8 % EF(sp4-el): 71.6 % LA A4 area: 20.9 cm2 LA dimension(2D): 4.5 cm RA A4 area: 17.6 cm2 TAPSE: 1.9 cm Time Measurements MV dec time: 0.26 sec Doppler Measurements & Calculations MV E max panda: 54.7 cm/sec Lat Peak E' Panda: 7.9 cm/sec Med Peak E' Panda: 6.9 cm/sec MV A max panda: 57.7 cm/sec E/E' lat: 6.9 E/E' med: 7.9 MV E/A: 0.95 MV V2 max: 67.3 cm/sec Ao V2 max: 131.0 cm/sec MV max P.8 mmHg MV dec slope: 223.5 cm/sec2 Ao max P.9 mmHg MV V2 mean: 41.9 cm/sec Ao V2 mean: 86.7 cm/sec MV mean P.81 mmHg Ao mean P.5 mmHg MV V2 VTI: 21.1 cm Ao V2 VTI: 26.8 cm AV (velocity ratio): 1.1 LV V1 max: 126.4 cm/sec PA V2 max: 137.1 cm/sec TR max panda: 336.6 cm/sec LV V1 max P.4 mmHg PA V2 mean: 87.8 cm/sec TR max P.3 mmHg LV V1 mean P.4 mmHg LV V1 mean: 86.3 cm/sec LV V1 VTI: 28.6 cm ECHO/Echo Complete Interpretation Summary The estimated ejection fraction is 65 %. Diastolic function is indeterminate. Ordering Physician: Dee Dee Jean Referring Physician: Mio Juarez Performed By: Lolly Sims RCS
[2023-07-04 17:28] LABS: Partial Thromboplast Time 22.9 Seconds (24.1-36.2); Prothrombin Time (Protime)PT. 13.1 SECONDS (11.7-14.9)
[2023-07-04] MEDS: Furosemide 40 MG/4 ML Vial IV (18:21)
[2023-07-04 18:23] LABS: Troponin-I HS 440 pg/mL (3.0-54.0)
[2023-07-04] MEDS: Aspirin 81 MG TAB.CHEW 324 MG PO (18:24)
[2023-07-04] MEDS: Ceftriaxone 1 GM/50 ML BAG IV (18:25)
[2023-07-04] MEDS: HEPARIN/D5w 25,000 UNITS 25,000 UNITS/250 ML IV.SOLN. 10 UNITS CONT INF (18:29)
[2023-07-04 18:34] LABS: Procalcitonin < 0.04 ng/mL (0.00-0.09)
[2023-07-04] MEDS: Heparin Injection (Vial) 5,000 UNIT/ML VIAL 4000 UNIT IV (18:34)
[2023-07-04 18:45] LABS: M R Staph aureus DNA By PCR Negative (Negative); Probe Check PASS; Specimen Processing Control PASS
[2023-07-04 20:46] LABS: Anion Gap 4 (5-15); BUN 22 mg/dL (7-18); BUN/Creat Ratio 18.3 RATIO (10-20); Calcium,Total 8.7 mg/dL (8.5-10.1); Chloride 106 mmol/L (98-107); EST Glomerular Filtration Rate 46 mL/min (>60); Est Glom Filt Rate - Afr Amer 55 mL/min (>60); Estimated Creatinine Clearance 31.75 ml/min; Glucose 155 mg/dL (74-106); Potassium 4.3 mmol/L (3.5-5.1); Sodium Level 140 mmol/L (136-145)
[2023-07-04] MEDS: Budesonide Respules 0.5 MG/2 ML AMPUL.NEB. INHALATION (20:52)
[2023-07-04] MEDS: Menthol/Lanolin/Calamine/Znox 113 GM Tube 1 APPLIC TOPICAL (21:09)
[2023-07-04] MEDS: Nystatin Powder 15gm Bottle 1 APPLIC TOPICAL (21:09)
[2023-07-05] VITALS (16 sets, daily range): BP systolic 123–140; BP diastolic 56–72; PULSE 63–70; RESP 13–19; TEMP 36.2–36.8; O2SAT 93–98; BMI 33.3
[2023-07-05 01:10] LABS: Partial Thromboplast Time 84.7 Seconds (24.1-36.2)
[2023-07-05] MEDS: Nystatin Powder 15gm Bottle 1 APPLIC TOPICAL ×3 (05:05→19:32)
[2023-07-05] MEDS: Menthol/Lanolin/Calamine/Znox 113 GM Tube 1 APPLIC TOPICAL ×3 (05:05→19:33)
[2023-07-05 05:16] LABS: Absolute Lymphocyte Count 0.95 X10^3/uL (0.83-4.51); Absolute Neutrophil Count 3.5 X10^3/uL (2.0-7.7); Basophil# 0.05 X10^3/uL; Basophil% 0.9 % (0-1); Eosinophil# 0.28 X10^3/uL; Eosinophils% 5.1 % (0-5); Hematocrit 43.1 % (37-47); Hemoglobin 13.3 g/dL (12.0-15.0); Lymphocyte # 0.95 X10^3/ul (0.83-4.51); Lymphocyte % 17.2 % (19-41); Mean Corp Hgb Conc 30.9 g/dL (32-36); Mean Corpuscular Hgb 30.3 pg (27.0-32.0); Mean Corpuscular Volume 98.2 fL (81-99); Monocyte# 0.71 X10^3/uL; Monocyte% 12.8 % (0-10); NRBC Flagged by Analyzer 0 % (0-5); Neutrophil # 3.52 X10^3/uL (2.7-7.7); Neutrophil % 63.6 % (47-70); Platelet Count 163 K/mm3 (150-450); RBC Distribution Width CV 15.5 % (11.6-14.6); RBC Distribution Width SD 55.6 fl (35.1-43.9); Red Blood Count 4.39 M/mm3 (4.2-5.4); White Blood Count 5.5 K/mm3 (4.4-11.0)
[2023-07-05 05:32] LABS: ALB/GLOB Ratio 0.8 RATIO (0.9-2.4); AST(SGOT) 31 U/L (15-37); Alanine Aminotransfer ALT/SGPT 23 U/L (13-56); Albumin, Serum 2.9 g/dL (3.2-5.0); Alkaline Phosphatase 98 U/L (45-117); Anion Gap 3 (5-15); BUN 19 mg/dL (7-18); BUN/Creat Ratio 20.2 RATIO (10-20); Calcium,Total 8.3 mg/dL (8.5-10.1); Chloride 106 mmol/L (98-107); Cholesterol 200 mg/dL (200); Creatinine, Serum 0.94 mg/dL (0.55-1.02); EST Glomerular Filtration Rate 61 mL/min (>60); Est Glom Filt Rate - Afr Amer 74 mL/min (>60); Estimated Creatinine Clearance 40.53 ml/min; Globulin 3.6 g/dL (2.2-4.2); Glucose 94 mg/dL (74-106); High Density Lipoprotein 60 mg/dL; Potassium 4.1 mmol/L (3.5-5.1); Protein, Total 6.5 g/dL (6.4-8.2); Sodium Level 143 mmol/L (136-145); Triglycerides 110 mg/dL; Very Low Density Lipoprotein 22 mg/dL (5-40)
--- NOTE | 2023-07-05 06:30 | EX.PCM.CONCC ---
Assessment & Plan Assessment/Plan (1) Hypoxia: PLAN: Plan RECOMMENDATIONS: 1. Wean supplemental oxygen to maintain saturations at or above 90%. 2. Aggressive incentive spirometer use and mobilize patient as tolerated. 3. Avoid sedating medications, if feasible. 4. Empiric antibiotics pending repeat urine culture. 5. The patient is medically stable for transfer out of the intensive care unit. IMPRESSIONS: 1. Hypoxemia Most likely secondary to atelectasis in the setting of recent abdominal surgery. CTA chest was negative for pulmonary embolism, but did demonstrate bibasilar atelectatic changes. Recommend continuing supplemental oxygen to maintain saturations at or above 90%. Continue to encourage aggressive incentive spirometer use and mobilize patient as tolerated. The patient has no intensive care needs. 2. Encephalopathy Potentially related to opiate medication utilization. Although the patient was reportedly diagnosed recently with a UTI, her urine culture dated July 02 only demonstrated minimal growth of Enterococcus. Therefore, acute UTI seems unlikely. However, antibiotics will be continued, pending repeat urine culture results dated July 04. 3. NSTEMI Continue management per hospitalist. 4. History of chronic kidney disease/obesity/hypertension/hyperlipidemia/history of AAA Complicates care, management, recovery and prognosis. Continue home medications as indicated. This note was generated with Vitrue dictation software. It may contain incorrect words, spelling, and punctuation that were not noted in checking the note before signing. HPI Consult Data Date of Consult: 07/05/23 HPI Narrative Reason for Consultation: Acute hypoxemic respiratory failure HPI Narrative: The patient is an 83-year-old female, with a history as outlined below, who presented to the emergency department via EMS on July 04 with altered mentation. The patient has a medical history significant for obesity, AAA status post endovascular repair/uterine cancer status post resection, recent UTI and hernia surgery at [facility] several days prior to her presentation. The patient denied a smoking history. She has no pre-existing COPD or asthma. She does not utilize supplemental oxygen at her baseline. On presentation to the emergency department, the patient was noted to be afebrile and hemodynamically stable. She was initially documented to be saturating 82% on room air. Initial laboratory evaluation revealed no evidence of a leukocytosis. Chemistry profile was notable for a potassium of 5.2 and creatinine of 1.15. Lactate was within normal limits. Troponins were elevated with a BNP of 397. Procalcitonin was normal. CTA chest showed no evidence for pulmonary embolism or focal consolidation. CT abdomen/pelvis revealed stigmata of recent hernia surgery without discernible abscess. The patient was subsequently placed on empiric antibiotics and admitted to the medical intensive care unit. This morning, the patient is alert and oriented. She remains hemodynamically stable. [facility] Medical History (Updated 07/04/23 @ 15:54 by MIGUEL ANGEL Lyle) Bilateral lower extremity edema History of abdominal aortic aneurysm (AAA) History of COVID-19 History of skin cancer History of uterine cancer Hyperlipidemia Hypertension Intertriginous dermatitis associated with moisture Obesity Urinary incontinence, mixed Venous insufficiency of both lower extremities Home Medications amlodipine 5 mg tablet See Rx Instructions .Route .COMPLEX #90 TABLETS 04/23/23 [Rx Last Taken Unknown] miconazole nitrate 2 % topical powder (Desenex) 1 applic topical BID #85 grams 04/23/23 [Rx Last Taken Unknown] cephalexin 500 mg tablet 500 mg PO TID #15 tabs 07/02/23 [Rx Last Taken Unknown] oxycodone-acetaminophen 5 mg-325 mg tablet 1 tab PO Q6H PRN pain 07/04/23 [History Last Taken Unknown] Allergy/AdvReac Type Severity Reaction Status Date / Time rosuvastatin [From Crestor] Allergy Severe stomach Verified 07/04/23 10:18 pains shellfish derived Allergy Severe MOUTH SORES Verified 07/04/23 10:18 sulfamethoxazole Allergy Unknown unknown Verified 07/04/23 10:18 [From Bactrim] trimethoprim [From Bactrim] Allergy Unknown unknown Verified 07/04/23 10:18 Family History Son Alcoholism Grandmother No problems noted. Mother Heart disease Hypertension CVA (cerebral vascular accident) Father Cancer throat Surgical History (Updated 07/04/23 @ 15:54 by MIGUEL ANGEL Lyle) History of hernia repair History of hysterectomy Hx of endovascular stent graft for abdominal aortic aneurysm Social History Smoking Status: Never smoker alcohol intake: never substance use type: does not use what type of physical activity do you participate in: walking and aerobics ROS ROS Narrative 10 systems were reviewed with pertinent positives as noted in the HPI above. Physical Exam Const alert and no apparent distress General Appearance: cooperative HEENT normocephalic and head/scalp atraumatic Eyes PERRL, EOMs intact bilaterally and conjunctivae normal Neck supple General: trachea midline Chest inspection of chest normal Resp normal respiratory effort Resp Narrative: Mild basilar rales. Cardio regular rate and regular rhythm GI normal to inspection, nondistended, normoactive bowel sounds Extremity no clubbing, cyanosis or edema Skin no rashes or lesions noted Neuro CN's II-XII intact bilaterally and no focal motor deficits Psych cooperative and affect normal Lab / Micro Data 07/05/23 05:05 07/05/23 05:05 Labs: Laboratory Results - last 24 hr 07/04/23 10:30: WBC 8.1, RBC 4.48, Hgb 14.1, Hct 44.7, MCV 99.8 H, MCH 31.5, MCHC 31.5 L, RDW Std Deviation 58.6 H, RDW Coeff of Toribio 15.9 H, Plt Count 194, MPV 9.3, Immature Gran % (Auto) 1.400 H, Neut % (Auto) 81.5 H, Lymph % (Auto) 7.8 L, [place] % (Auto) 7.4, Eos % (Auto) 1.0, Baso % (Auto) 0.9, Absolute Neuts (auto) 6.6, Absolute Lymphs (auto) 0.63 L, Nucleated RBC % 0, PT 12.9, INR 1.0, APTT 24.2, Sodium 138, Potassium 5.2 H, Chloride 104, Carbon Dioxide 30.0, Anion Gap 4 L, BUN 26 H, Creatinine 1.15 H, Estim Creat Clear Calc 33.13, Est GFR (MDRD) Af Amer 58 L, Est GFR (MDRD) Non-Af 48 L, BUN/Creatinine Ratio 22.6 H, Glucose 126 H, Lactic Acid 0.8, Calcium 8.4 L, Total Bilirubin 0.30, AST 21, ALT 25, Alkaline Phosphatase 109, Troponin I High Sens 64 H, B-Natriuretic Peptide 397.9 H, Total Protein 7.1, Albumin 3.2, Globulin 3.9, Albumin/Globulin Ratio 0.8 L 07/04/23 11:25: Urine Color Yellow, Urine Clarity Clear, Urine pH 5.0, Ur Specific [place] 1.020, Urine Protein Negative, Urine Glucose (UA) Normal, Urine Ketones Negative, Urine Occult Blood 10 H, Urine Nitrite Negative, Urine Bilirubin Negative, Urine Urobilinogen Normal, Ur Leukocyte Esterase 25 H, Urine RBC 0 SEEN, Urine WBC 5-10 SEEN, Ur Squamous Epith Cells 0-5 SEEN, Urine Bacteria 1+, Urine Mucus 0 SEEN 07/04/23 12:55: Troponin I High Sens 125 H* 07/04/23 17:10: PT 13.1, INR 1.0, APTT 22.9 L, MRSA (PCR) Negative 07/04/23 17:45: Magnesium 2.0, Troponin I High Sens 440 H*, Procalcitonin < 0.04 07/04/23 20:15: Sodium 140, Potassium 4.3, Chloride 106, Carbon Dioxide 30.0, Anion Gap 4 L, BUN 22 H, Creatinine 1.20 H, Estim Creat Clear Calc 31.75, Est GFR (MDRD) Af Amer 55 L, Est GFR (MDRD) Non-Af 46 L, BUN/Creatinine Ratio 18.3, Glucose 155 H, Calcium 8.7 07/05/23 00:40: APTT 84.7 H 07/05/23 05:05: WBC 5.5, RBC 4.39, Hgb 13.3, Hct 43.1, MCV 98.2, MCH 30.3, MCHC 30.9 L, RDW Std Deviation 55.6 H, RDW Coeff of Toribio 15.5 H, Plt Count 163, MPV 9.0, Immature Gran % (Auto) 0.400, Neut % (Auto) 63.6, Lymph % (Auto) 17.2 L, [place] % (Auto) 12.8 H, Eos % (Auto) 5.1 H, Baso % (Auto) 0.9, Absolute Neuts (auto) 3.5, Absolute Lymphs (auto) 0.95, Nucleated RBC % 0, Sodium 143, Potassium 4.1, Chloride 106, Carbon Dioxide 34.0 H, Anion Gap 3 L, BUN 19 H, Creatinine 0.94, Estim Creat Clear Calc 40.53, Est GFR (MDRD) Af Amer 74, Est GFR (MDRD) Non-Af 61, BUN/Creatinine Ratio 20.2 H, Glucose 94, Calcium 8.3 L, Total Bilirubin 0.40, AST 31, ALT 23, Alkaline Phosphatase 98, Total Protein 6.5, Albumin 2.9 L, Globulin 3.6, Albumin/Globulin Ratio 0.8 L, Triglycerides 110, Cholesterol 200, LDL Cholesterol 118, VLDL Cholesterol 22, HDL Cholesterol 60 Micro: Microbiology 07/04/23 15:35 Mucosa - Nasopharyngeal Respiratory Panel (PCR) - Final 07/04/23 17:15 Urine, Clean Catch Legionella Antigen - Final 07/04/23 17:15 Urine, Clean Catch Streptococcus pneumoniae Antigen (M - Final 07/04/23 15:35 Mucosa - Nose Coronavirus COVID-19 PCR - Final 07/04/23 11:31 Nasal Secretion SARS-CoV-2 & FLU Antigen (Rapid) - Final ABG Data ABG results: ABG 07/04/23 13:33 Specimen Type ART Sample Site L Radial pH 7.44 Bicarbonate Actual 25.7 Total CO2 27 Base Excess 2 O2 Saturation 94 L ABG pCO2 37.8 ABG pO2 68 L Branden Test Positive O2 Delivery Device HFNC Liter Flow 12.0 Radiology Impression Chest X-Ray 07/04/23 10:26 IMPRESSION: No radiographic evidence of acute cardiopulmonary disease. Electronically Signed: Pietro Waller MD at 11:31 EDT , Chest CTA 07/04/23 10:27 IMPRESSION: 1. No evidence of pulmonary embolism. 2. Atelectatic changes both lower lungs. No focal consolidation is seen. 3. Trace of right pleural effusion. 4. Nodular density in the left breast. Correlation with nonemergent mammography is recommended. Electronically Signed: Pietro Waller MD at 12:25 EDT , Abdomen/Pelvis CT 07/04/23 14:29 IMPRESSION: 1. Focal stranding in the subcutaneous fat of the anterior abdominal wall with pockets of air in the anterior abdominal wall with small pockets of air extending into the peritoneal cavity could be due to recent repair. Ill-defined peritoneal density extending to the anterior abdominal wall concerning for focal inflammatory process. No drainable abscess is seen. 2. Cholelithiasis. 3. Small hiatal hernia. 4. Endoluminal aortic stent. Electronically Signed: Pietro Waller MD at 15:34 EDT , Charges/Coding Visit Charges Inpatient E&M: 88296 Init Hosp L3
[2023-07-05] MEDS: Budesonide Respules 0.5 MG/2 ML AMPUL.NEB. INHALATION ×2 (07:51→18:49)
[2023-07-05 08:37] LABS: Partial Thromboplast Time 62.7 Seconds (24.1-36.2)
[2023-07-05] MEDS: Aspirin E.C. 81 MG Tablet PO (09:42)
[2023-07-05] MEDS: Ceftriaxone 1 GM/50 ML BAG IV (09:42)
[2023-07-05] MEDS: 0.9% Saline Lock 10 ML Syringe IV (09:43)
[2023-07-05] MEDS: amLODIPine 5 MG Tablet PO (09:43)
--- NOTE | 2023-07-05 10:30 | CASEMGMT ---
RN?CM?SYRUP MIXER HELPER?CM?to room to meet with patient for initial transition planning/care coordination?assessment.?RN?CM?introduced self and role at [facility].? Pt voices understanding and consents to?assessment?at this time.? Pt resting in bed in no distress at this time.? Pt is A/O at this time and answers all questions appropriately.?? Care providers, pharmacy, and demographics verified/updated at this time. PCP: Dr Juarez Specialists: Dr Enciso, surgeon Preferred Pharmacy: [facility] Retail Insurance: MCR A/B, KATY Chu Prescription Benefit:?Yes, [employer] Living Will/HPOA: Has both LW and HCPOA, dtr, Kateryna, and son, Gerry. LNOK: Elsa Thomason, daughter; Gerry Hansen, son Living Arrangements: Pt lives alone in [facility] apt. It is a 1 story apt with no steps to enter and states no concerns at home. Pt is independent with ADL's and manages her own medications. Pt states friends get groceries. She states her good friend, Leidy, stops in to see her 2-3 x's/week and helps w/dishes and home tasks and states she could use some further help and interested in seeing if she may qualify for an aide. She is also interested in info on home delivered meals, but does not want MOW. Desirae NATHAN, made aware. Transportation: Pt states friends drive and states no transportation concerns. DME: Pt has a walker, life chair, pulse ox, and grab bars. Pt interested in medical alert info and same was provided. Pt also states she may be interested in getting a rollator. She is not sure if the walker she received last year after leaving from [facility] was billed through her insurance or not. Pt made aware, if the walker was billed through insurance last year, that they will not cover for part of the rollator at this time. Pt made aware [id number] cost would be approx $112 from [employer] and $110 from [employer] for a rollator, if insurance will not cover any of the cost. Pt states no need for any further DME. KARY ELIZONDO informed her a script can be provided for a rollator and HHC/SNF: Pt has had [facility] in the past (PT contracted from [facility]) and has been to [facility] for rehab. Pt states she would like to go home @ discharge. Pt voices no further concerns/needs. CM to follow for any further discharge planning/needs. Advised pt to ask for CM if any further questions/concerns/needs arise, voices understanding. Plan: TBD. PT/OT evals pending. Bettie BRIDGES RN CM
--- NOTE | 2023-07-05 11:35 | PN_ITS ---
Subjective Subjective Patient seen and examined. She had no active complaints. She feels her breathing is improving. She denies any fever, chills, chest pain, palpitations, dizziness, nausea, vomiting or any other symptoms. Review of systems is otherwise negative. Troponins trended upwards to a peak of 440. Objective Data Objective Data Vital Signs: Vital Signs Temp Pulse Resp BP Pulse Ox O2 Del Method O2 Flow Rate 97.2 F L 67 17 132/68 H 98 Nasal Cannula 8 07/05/23 08:00 07/05/23 08:00 07/05/23 08:00 07/05/23 08:00 07/05/23 08:00 07/05/23 09:00 07/05/23 09:00 Oxygen Flow Rate (L/min) 8 Oxygen Delivery Method Nasal Cannula Weight: 195 lb 4 oz Body Mass Index (BMI) 33.3 Intake & Output: Intake and Output for Last 24 Hours 07/03/23 07/04/23 07/05/23 23:59 23:59 23:59 Intake Total 796.67 / 796.67 361.57 / 361.57 Output Total 1260 / 1560 1950 / 1950 Balance -463.33 / -763.33 -1588.43 / -1588.43 Lab / Micro Data 07/05/23 05:05 07/05/23 05:05 Labs: Laboratory Results - last 24 hr 07/04/23 11:25: Urine Color Yellow, Urine Clarity Clear, Urine pH 5.0, Ur Specific [place] 1.020, Urine Protein Negative, Urine Glucose (UA) Normal, Urine Ketones Negative, Urine Occult Blood 10 H, Urine Nitrite Negative, Urine Bilirubin Negative, Urine Urobilinogen Normal, Ur Leukocyte Esterase 25 H, Urine RBC 0 SEEN, Urine WBC 5-10 SEEN, Ur Squamous Epith Cells 0-5 SEEN, Urine Bacteria 1+, Urine Mucus 0 SEEN 07/04/23 12:55: Troponin I High Sens 125 H* 07/04/23 17:10: PT 13.1, INR 1.0, APTT 22.9 L, MRSA (PCR) Negative 07/04/23 17:45: Magnesium 2.0, Troponin I High Sens 440 H*, Procalcitonin < 0.04 07/04/23 20:15: Sodium 140, Potassium 4.3, Chloride 106, Carbon Dioxide 30.0, Anion Gap 4 L, BUN 22 H, Creatinine 1.20 H, Estim Creat Clear Calc 31.75, Est GFR (MDRD) Af Amer 55 L, Est GFR (MDRD) Non-Af 46 L, BUN/Creatinine Ratio 18.3, Glucose 155 H, Calcium 8.7 07/05/23 00:40: APTT 84.7 H 07/05/23 05:05: WBC 5.5, RBC 4.39, Hgb 13.3, Hct 43.1, MCV 98.2, MCH 30.3, MCHC 30.9 L, RDW Std Deviation 55.6 H, RDW Coeff of Toribio 15.5 H, Plt Count 163, MPV 9.0, Immature Gran % (Auto) 0.400, Neut % (Auto) 63.6, Lymph % (Auto) 17.2 L, [place] % (Auto) 12.8 H, Eos % (Auto) 5.1 H, Baso % (Auto) 0.9, Absolute Neuts (auto) 3.5, Absolute Lymphs (auto) 0.95, Nucleated RBC % 0, Sodium 143, Potassium 4.1, Chloride 106, Carbon Dioxide 34.0 H, Anion Gap 3 L, BUN 19 H, Creatinine 0.94, Estim Creat Clear Calc 40.53, Est GFR (MDRD) Af Amer 74, Est GFR (MDRD) Non-Af 61, BUN/Creatinine Ratio 20.2 H, Glucose 94, Calcium 8.3 L, Total Bilirubin 0.40, AST 31, ALT 23, Alkaline Phosphatase 98, Total Protein 6.5, Albumin 2.9 L, Globulin 3.6, Albumin/Globulin Ratio 0.8 L, Triglycerides 110, Cholesterol 200, LDL Cholesterol 118, VLDL Cholesterol 22, HDL Cholesterol 60 07/05/23 08:20: APTT 62.7 H Micro: Microbiology 07/04/23 11:25 Urine, Catheterized Urine Culture - Preliminary GPC Poss Enterococcus sp Presumptive E. coli 07/04/23 15:35 Mucosa - Nasopharyngeal Respiratory Panel (PCR) - Final 07/04/23 17:15 Urine, Clean Catch Legionella Antigen - Final 07/04/23 17:15 Urine, Clean Catch Streptococcus pneumoniae Antigen (M - Final 07/04/23 15:35 Mucosa - Nose Coronavirus COVID-19 PCR - Final 07/04/23 11:31 Nasal Secretion SARS-CoV-2 & FLU Antigen (Rapid) - Final ABG Data ABG results: ABG 07/04/23 13:33 Specimen Type ART Sample Site L Radial pH 7.44 Bicarbonate Actual 25.7 Total CO2 27 Base Excess 2 O2 Saturation 94 L ABG pCO2 37.8 ABG pO2 68 L Branden Test Positive O2 Delivery Device HFNC Liter Flow 12.0 Radiography Diagnostic Testing: Radiology Impression Chest CTA 07/04/23 10:27 IMPRESSION: 1. No evidence of pulmonary embolism. 2. Atelectatic changes both lower lungs. No focal consolidation is seen. 3. Trace of right pleural effusion. 4. Nodular density in the left breast. Correlation with nonemergent mammography is recommended. Electronically Signed: Pietro Waller MD at 12:25 EDT , Abdomen/Pelvis CT 07/04/23 14:29 IMPRESSION: 1. Focal stranding in the subcutaneous fat of the anterior abdominal wall with pockets of air in the anterior abdominal wall with small pockets of air extending into the peritoneal cavity could be due to recent repair. Ill-defined peritoneal density extending to the anterior abdominal wall concerning for focal inflammatory process. No drainable abscess is seen. 2. Cholelithiasis. 3. Small hiatal hernia. 4. Endoluminal aortic stent. Electronically Signed: Pietro Waller MD at 15:34 EDT , Physical Exam Const alert, oriented x3 and no apparent distress General Appearance: cooperative HEENT normocephalic, head/scalp atraumatic, moist oral mucous membranes and oropharynx normal Neck supple and no JVD Lymph Lymphatic: no lymphadenopathy noted and no lymphedema noted Resp Resp Narrative: mildly diminished breath sounds bibasally, no wheezes or crackles. On 9L of oxyg en by nasal canula Cardio regular rate, regular rhythm, S2 normal heart sound and no murmurs GI normal to inspection, nondistended, normoactive bowel sounds, soft to palpation and non-tender Skin General Skin Exam: no breakdown Neuro CN's II-XII intact bilaterally, no focal motor deficits, no sensory deficits noted and deep tendon reflexes 2+ bilaterally Motor Exam: strength 5/5 throughout Psych thought process normal and cooperative Appearance: appropriate Assessment & Plan Assessment/Plan (1) Hypoxia: PLAN: Plan #Acute hypoxic respiratory failure * could be related to atelectasis from recent abdominal hernia surgery * CTA chest negative for any evidence of PE * weaned down to 9L this morning * torponins also elevated so NSTEMI could be a cause of the respiratory failure * on breathing treatment with bronchodilators * titrate oxygen to maintain sats >90% * 2D echo ordered and pending * #NONSTEMI * troponins trended upwards and peaked at 440. * possibly a type II event in light of hypoxia * cardiology consulted. 2D echo also ordered * leila any chest pain * on aspirin and high intensity statin * on heparin drip * #Left breast nodular density: as per CA. TO follow up with PCP on outpatient basis for further workup and imaging as needed #History of abdominal aortic aneurysm * s/p repair. * recently had it repaired at [facility] * follow up with vascular surgery on outpatient basis * CT of the abdomen and pelvis showed focal stranding in the subcutaneous fat of the anterior abdominal wall with pockets of air in the anterior abdominal wall extending into the peritoneal cavity which could be due to recent repair and ill-defined peritoneal density extending to the anterior abdominal wall concerning for focal inflammatory process. * has no abdominal pain or tenderness. Will monitor * #Recent UTI * placed on IV zosyn on admission. Urinalysis showed 1+ bacteria. On IV zosyn. Urine cultures pending. Will monitor * #History of uterine cancer: s/p radiation and resection. in remission. Follow up with oncology and gynecology on outpatient basis #Hyperkalemia: resolved. #Hypertension: on amlodipine. IV hydralazine prn DVT prophylaxis: on heparin drip Charges/Coding Visit Charges Inpatient E&M: 74145 Subs Hosp L2
--- NOTE | 2023-07-05 15:15 | CON.PCM.CA_ITS ---
Assessment & Plan Assessment/Plan (1) Elevated troponin: PLAN: Appears to be type II NE secondary to hypoxia. No further cardiac work-up is required at this time. Okay to discontinue heparin. We will sign off at this time. If we can be of any further assistance or if patient's clinical situation changes please let us know. HPI Consult Data Date of Consult: 07/05/23 HPI Narrative Reason for Consultation: Elevated troponin HPI Narrative: ELA JOHNSON, is a 83 F who presents with altered mental status that was believed to be related to OxyContin that she took after recent hernia surgery. Altered mental status has resolved. Patient was also hypoxic on arrival related to atelectasis and also possibly secondary to the OxyContin. Her high- sensitivity troponin went up to around 400. Patient denies any chest pain or shortness of breath. Her 2D echo revealed no significant wall motion abnormalities. Review of systems: All systems reviewed. All is negative except as in HPI. [facility] Medical History (Updated 07/05/23 @ 15:[address] Jung Tanner MD) Bilateral lower extremity edema History of abdominal aortic aneurysm (AAA) History of COVID-19 History of skin cancer History of uterine cancer Hyperlipidemia Hypertension Intertriginous dermatitis associated with moisture Obesity Urinary incontinence, mixed Venous insufficiency of both lower extremities Home Medications amlodipine 5 mg tablet See Rx Instructions .Route .COMPLEX #90 TABLETS 04/23/23 [Rx Last Taken Unknown] miconazole nitrate 2 % topical powder (Desenex) 1 applic topical BID #85 grams 04/23/23 [Rx Last Taken Unknown] cephalexin 500 mg tablet 500 mg PO TID #15 tabs 07/02/23 [Rx Last Taken Unknown] oxycodone-acetaminophen 5 mg-325 mg tablet 1 tab PO Q6H PRN pain 07/04/23 [History Last Taken Unknown] Allergy/AdvReac Type Severity Reaction Status Date / Time rosuvastatin [From Crestor] Allergy Severe stomach Verified 07/04/23 10:18 pains shellfish derived Allergy Severe MOUTH SORES Verified 07/04/23 10:18 sulfamethoxazole Allergy Unknown unknown Verified 07/04/23 10:18 [From Bactrim] trimethoprim [From Bactrim] Allergy Unknown unknown Verified 07/04/23 10:18 Family History Son Alcoholism Grandmother No problems noted. Mother Heart disease Hypertension CVA (cerebral vascular accident) Father Cancer throat Surgical History (Updated 07/04/23 @ 15:54 by MIGUEL ANGEL Lyle) History of hernia repair History of hysterectomy Hx of endovascular stent graft for abdominal aortic aneurysm Social History Smoking Status: Never smoker alcohol intake: never substance use type: does not use what type of physical activity do you participate in: walking and aerobics Physical Exam Const alert and oriented x3 HEENT normocephalic Eyes no scleral icterus Resp normal respiratory effort Resp Narrative: Mild bibasilar crackles right greater than left. Cardio regular rate Extremity no pedal edema Skin no rashes or lesions noted Psych mental status grossly normal Risk Stratification Risk Stratification Applicable: No Objective Data Vital Signs: Vital Signs Temp Pulse Resp BP Pulse Ox O2 Del Method O2 Flow Rate 98.2 F 70 19 H 140/72 H 94 High Flow 6 07/05/23 13:42 07/05/23 13:42 07/05/23 13:42 07/05/23 13:42 07/05/23 14:22 07/05/23 15:07 07/05/23 15:07 Oxygen Flow Rate (L/min) 6 Oxygen Delivery Method High Flow Weight: 195 lb 4 oz Body Mass Index (BMI) 33.3 Intake & Output: Intake and Output for Last 24 Hours 07/03/23 07/04/23 07/05/23 23:59 23:59 23:59 Intake Total 796.67 / 796.67 596.77 / 596.77 Output Total 1260 / 1560 1950 / 1950 Balance -463.33 / -763.33 -1353.23 / -1353.23 Lab / Micro Data 07/05/23 05:05 07/05/23 05:05 Labs: Laboratory Results - last 24 hr 07/04/23 17:10: PT 13.1, INR 1.0, APTT 22.9 L, MRSA (PCR) Negative 07/04/23 17:45: Magnesium 2.0, Troponin I High Sens 440 H*, Procalcitonin < 0.04 07/04/23 20:15: Sodium 140, Potassium 4.3, Chloride 106, Carbon Dioxide 30.0, Anion Gap 4 L, BUN 22 H, Creatinine 1.20 H, Estim Creat Clear Calc 31.75, Est GFR (MDRD) Af Amer 55 L, Est GFR (MDRD) Non-Af 46 L, BUN/Creatinine Ratio 18.3, Glucose 155 H, Calcium 8.7 07/05/23 00:40: APTT 84.7 H 07/05/23 05:05: WBC 5.5, RBC 4.39, Hgb 13.3, Hct 43.1, MCV 98.2, MCH 30.3, MCHC 30.9 L, RDW Std Deviation 55.6 H, RDW Coeff of Toribio 15.5 H, Plt Count 163, MPV 9.0, Immature Gran % (Auto) 0.400, Neut % (Auto) 63.6, Lymph % (Auto) 17.2 L, [place] % (Auto) 12.8 H, Eos % (Auto) 5.1 H, Baso % (Auto) 0.9, Absolute Neuts (auto) 3.5, Absolute Lymphs (auto) 0.95, Nucleated RBC % 0, Sodium 143, Potassium 4.1, Chloride 106, Carbon Dioxide 34.0 H, Anion Gap 3 L, BUN 19 H, Creatinine 0.94, Estim Creat Clear Calc 40.53, Est GFR (MDRD) Af Amer 74, Est GFR (MDRD) Non-Af 61, BUN/Creatinine Ratio 20.2 H, Glucose 94, Calcium 8.3 L, Total Bilirubin 0.40, AST 31, ALT 23, Alkaline Phosphatase 98, Total Protein 6.5, Albumin 2.9 L, Globulin 3.6, Albumin/Globulin Ratio 0.8 L, Triglycerides 110, Cholesterol 200, LDL Cholesterol 118, VLDL Cholesterol 22, HDL Cholesterol 60 07/05/23 08:20: APTT 62.7 H 07/05/23 14:25: APTT 50.0 H Micro: Microbiology 07/04/23 11:25 Urine, Catheterized Urine Culture - Preliminary GPC Poss Enterococcus sp Presumptive E. coli 07/04/23 15:35 Mucosa - Nasopharyngeal Respiratory Panel (PCR) - Final 07/04/23 17:15 Urine, Clean Catch Legionella Antigen - Final 07/04/23 17:15 Urine, Clean Catch Streptococcus pneumoniae Antigen (M - Final 07/04/23 15:35 Mucosa - Nose Coronavirus COVID-19 PCR - Final 07/04/23 11:31 Nasal Secretion SARS-CoV-2 & FLU Antigen (Rapid) - Final Cardiology Labs/Tests 07/04/23 17:10: PT 13.1, INR 1.0, APTT 22.9 L 07/04/23 17:45: Magnesium 2.0 07/04/23 20:15: Sodium 140, Potassium 4.3, Chloride 106, Carbon Dioxide 30.0, Anion Gap 4 L, BUN 22 H, Creatinine 1.20 H, Est GFR (MDRD) Af Amer 55 L, Est GFR (MDRD) Non-Af 46 L, BUN/Creatinine Ratio 18.3, Glucose 155 H, Calcium 8.7 07/05/23 00:40: APTT 84.7 H 07/05/23 05:05: WBC 5.5, RBC 4.39, Hgb 13.3, Hct 43.1, MCV 98.2, MCH 30.3, MCHC 30.9 L, Plt Count 163, MPV 9.0, Immature Gran % (Auto) 0.400, Neut % (Auto) 63.6, Lymph % (Auto) 17.2 L, [place] % (Auto) 12.8 H, Eos % (Auto) 5.1 H, Baso % (Auto) 0.9, Absolute Neuts (auto) 3.5, Nucleated RBC % 0, Sodium 143, Potassium 4.1, Chloride 106, Carbon Dioxide 34.0 H, Anion Gap 3 L, BUN 19 H, Creatinine 0.94, Est GFR (MDRD) Af Amer 74, Est GFR (MDRD) Non-Af 61, BUN/Creatinine Ratio 20.2 H, Glucose 94, Calcium 8.3 L, Total Bilirubin 0.40, Triglycerides 110, Cholesterol 200, LDL Cholesterol 118, VLDL Cholesterol 22, HDL Cholesterol 60 07/05/23 08:20: APTT 62.7 H 07/05/23 14:25: APTT 50.0 H Rhythm: EKG: ECHO: Stress Test: Cardiac Cath: PCI: CT Surgery: Holter monitor: EPS: PPM: CXR: Chest CT Scan: Radiography Diagnostic Testing: Radiology Impression Abdomen/Pelvis CT 07/04/23 14:29 IMPRESSION: 1. Focal stranding in the subcutaneous fat of the anterior abdominal wall with pockets of air in the anterior abdominal wall with small pockets of air extending into the peritoneal cavity could be due to recent repair. Ill-defined peritoneal density extending to the anterior abdominal wall concerning for focal inflammatory process. No drainable abscess is seen. 2. Cholelithiasis. 3. Small hiatal hernia. 4. Endoluminal aortic stent. Electronically Signed: Pietro Waller MD at 15:34 EDT , Echocardiogram 07/04/23 16:50 Interpretation Summary The estimated ejection fraction is 65 %. Diastolic function is indeterminate. Ordering Physician: Dee Dee Jean Referring Physician: Mio Juarez Performed By: Lolly Sims RCS
[2023-07-05] MEDS: HEPARIN/D5w 25,000 UNITS 25,000 UNITS/250 ML IV.SOLN. 10 UNITS CONT INF (19:30)
--- NOTE | 2023-07-05 20:51 | CPS ---
Pt refused PAP therapy for the night
[2023-07-05 21:26] LABS: Partial Thromboplast Time 51.8 Seconds (24.1-36.2)
[2023-07-06 01:45] VITALS: BP 127/71; PULSE 60; RESP 16; TEMP 36.4; O2SAT 97
[2023-07-06 04:17] LABS: Absolute Lymphocyte Count 1.01 X10^3/uL (0.83-4.51); Absolute Neutrophil Count 3.2 X10^3/uL (2.0-7.7); Basophil# 0.06 X10^3/uL; Basophil% 1.1 % (0-1); Eosinophil# 0.39 X10^3/uL; Eosinophils% 7.2 % (0-5); Hematocrit 42.9 % (37-47); Hemoglobin 13.3 g/dL (12.0-15.0); Lymphocyte # 1.01 X10^3/ul (0.83-4.51); Lymphocyte % 18.8 % (19-41); Mean Corpuscular Hgb 30.4 pg (27.0-32.0); Mean Corpuscular Volume 98.2 fL (81-99); Mean Platelet Vol. 8.8 fl (6.2-12.0); NRBC Flagged by Analyzer 0 % (0-5); Neutrophil # 3.19 X10^3/uL (2.7-7.7); Neutrophil % 59.3 % (47-70); Platelet Count 174 K/mm3 (150-450); RBC Distribution Width CV 15.3 % (11.6-14.6); RBC Distribution Width SD 55.4 fl (35.1-43.9); Red Blood Count 4.37 M/mm3 (4.2-5.4); White Blood Count 5.4 K/mm3 (4.4-11.0)
[2023-07-06 04:28] LABS: Partial Thromboplast Time 71.4 Seconds (24.1-36.2)
[2023-07-06 04:31] LABS: Anion Gap 4 (5-15); BUN 20 mg/dL (7-18); Calcium,Total 8.7 mg/dL (8.5-10.1); Chloride 106 mmol/L (98-107); Creatinine, Serum 0.95 mg/dL (0.55-1.02); EST Glomerular Filtration Rate 60 mL/min (>60); Est Glom Filt Rate - Afr Amer 72 mL/min (>60); Estimated Creatinine Clearance 40.11 ml/min; Glucose 100 mg/dL (74-106); Potassium 4.2 mmol/L (3.5-5.1); Sodium Level 142 mmol/L (136-145)
[2023-07-06 05:20] VITALS: BMI 33.6
[2023-07-06] MEDS: Menthol/Lanolin/Calamine/Znox 113 GM Tube 1 APPLIC TOPICAL ×3 (05:24→20:37)
[2023-07-06] MEDS: Nystatin Powder 15gm Bottle 1 APPLIC TOPICAL ×3 (05:25→20:37)
[2023-07-06] MEDS: Budesonide Respules 0.5 MG/2 ML AMPUL.NEB. INHALATION ×2 (06:46→18:59)
--- NOTE | 2023-07-06 07:51 | PCM.PN.INT ---
Assessment & Plan Assessment/Plan (1) Hypoxia: PLAN: Plan RECOMMENDATIONS: 1. Wean supplemental oxygen to maintain saturations at or above 90%. 2. Aggressive incentive spirometer use and mobilize patient as tolerated. 3. Avoid sedating medications, if feasible. Aggressive pain control 4. Likely okay to discontinue antibiotics from my perspective 5. Defer to cardiology on discontinuation of heparin drip IMPRESSIONS: 1. Hypoxemia Most likely secondary to atelectasis in the setting of recent abdominal surgery. CTA chest was negative for pulmonary embolism, but did demonstrate bibasilar atelectatic changes. Recommend continuing supplemental oxygen to maintain saturations at or above 90%. Aggressive pain control to facilitate deep inhalation. Continue to encourage aggressive incentive spirometer use and mobilize patient as tolerated. The patient has no intensive care needs. Actively decreasing oxygen requirements. 2. Encephalopathy Potentially related to opiate medication utilization. Although the patient was reportedly diagnosed recently with a UTI, her urine culture dated July 02 only demonstrated minimal growth of Enterococcus. Urine culture is not suggestive of an active UTI at this time. Okay to discontinue antibiotics from my perspective. 3. NSTEMI Continue management per hospitalist. 4. History of chronic kidney disease/obesity/hypertension/hyperlipidemia/history of AAA Complicates care, management, recovery and prognosis. Continue home medications as indicated. This note was generated with [employer] dictation software. It may contain incorrect words, spelling, and punctuation that were not noted in checking the note before signing. Subjective Subjective Patient did okay overnight. Patient was able to get out of bed yesterday and felt like this went okay. Patient does not use supplemental oxygen at home. Patient has not been reporting any bleeding complications such as epistaxis, hemoptysis, melena or hematochezia. Patient states her pain is controlled. Objective Data Objective Data Vital Signs: Vital Signs Temp Pulse Resp BP Pulse Ox O2 Del Method O2 Flow Rate 36.4 C L 60 16 127/71 H 97 Nasal Cannula 6 07/06/23 01:45 07/06/23 01:45 07/06/23 01:45 07/06/23 01:45 07/06/23 01:45 07/06/23 01:45 07/06/23 01:45 Oxygen Flow Rate (L/min) 6 Oxygen Delivery Method Nasal Cannula Weight: 88.9 kg Body Mass Index (BMI) 33.6 Intake & Output: Intake and Output for Last 24 Hours 07/04/23 07/05/23 07/06/23 23:59 23:59 23:59 Intake Total 796.67 / 796.67 867.77 / 867.77 103 / 103 Output Total 1260 / 1560 2550 / 2550 600 / 600 Balance -463.33 / -763.33 -1682.23 / -1682.23 -497 / -497 Lab / Micro Data Attestation: I reviewed the patient's lab results. 07/06/23 04:05 07/06/23 04:05 Labs: Laboratory Results - last 24 hr 07/05/23 08:20: APTT 62.7 H 07/05/23 14:25: APTT 50.0 H 07/05/23 21:00: APTT 51.8 H 07/06/23 04:05: WBC 5.4, RBC 4.37, Hgb 13.3, Hct 42.9, MCV 98.2, MCH 30.4, MCHC 31.0 L, RDW Std Deviation 55.4 H, RDW Coeff of Toribio 15.3 H, Plt Count 174, MPV 8.8, Immature Gran % (Auto) 0.600, Neut % (Auto) 59.3, Lymph % (Auto) 18.8 L, [place] % (Auto) 13.0 H, Eos % (Auto) 7.2 H, Baso % (Auto) 1.1 H, Absolute Neuts (auto) 3.2, Absolute Lymphs (auto) 1.01, Nucleated RBC % 0, APTT 71.4 H, Sodium 142, Potassium 4.2, Chloride 106, Carbon Dioxide 32.0, Anion Gap 4 L, BUN 20 H, Creatinine 0.95, Estim Creat Clear Calc 40.11, Est GFR (MDRD) Af Amer 72, Est GFR (MDRD) Non-Af 60, BUN/Creatinine Ratio 21.0 H, Glucose 100, Calcium 8.7 Micro: Microbiology 07/04/23 11:25 Urine, Catheterized Urine Culture - Final Enterococcus faecalis Escherichia coli 07/04/23 15:35 Mucosa - Nasopharyngeal Respiratory Panel (PCR) - Final 07/04/23 17:15 Urine, Clean Catch Legionella Antigen - Final 07/04/23 17:15 Urine, Clean Catch Streptococcus pneumoniae Antigen (M - Final 07/04/23 15:35 Mucosa - Nose Coronavirus COVID-19 PCR - Final 07/04/23 11:31 Nasal Secretion SARS-CoV-2 & FLU Antigen (Rapid) - Final Radiography Diagnostic Testing: Radiology Impression Echocardiogram 07/04/23 16:50 Interpretation Summary The estimated ejection fraction is 65 %. Diastolic function is indeterminate. Ordering Physician: Dee Dee Jean Referring Physician: Mio Juarez Performed By: Lolly Sims RCS Physical Exam Const alert and no apparent distress General Appearance: cooperative HEENT normocephalic and head/scalp atraumatic Eyes PERRL, EOMs intact bilaterally and conjunctivae normal Neck supple General: trachea midline Chest inspection of chest normal Resp normal respiratory effort Auscultation: rales bilateral lower; Negative for rhonchi or wheezes Cardio regular rate, regular rhythm, S1 normal heart sound, S2 normal heart sound, no murmurs, no rub and no gallops GI normal to inspection, nondistended, normoactive bowel sounds Extremity no clubbing, cyanosis or edema Skin no rashes or lesions noted Neuro CN's II-XII intact bilaterally and no focal motor deficits Psych cooperative and affect normal Charges/Coding Visit Charges Inpatient E&M: 19330 Subs Hosp L2
[2023-07-06] MEDS: Aspirin E.C. 81 MG Tablet PO (07:59)
[2023-07-06] MEDS: amLODIPine 5 MG Tablet PO (07:59)
[2023-07-06] MEDS: Ceftriaxone 1 GM/50 ML BAG IV (08:00)
[2023-07-06 08:16] VITALS: BP 134/66; PULSE 66; RESP 16; TEMP 36.6; O2SAT 98
--- NOTE | 2023-07-06 10:20 | PN_ITS ---
Subjective Subjective Patient seen and examined. Daughter was by her bedside. She had no active complaints and felt much better. She was now down to 2L of oxygen. Daughter wanted her mother to go to a short term rehab for rehabilitation before she went home. Patient was initially reluctant, but is now agreeable. Objective Data Objective Data Vital Signs: Vital Signs Temp Pulse Resp BP Pulse Ox O2 Del Method O2 Flow Rate 97.8 F 66 16 134/66 H 98 Nasal Cannula 2 07/06/23 08:16 07/06/23 08:16 07/06/23 08:16 07/06/23 08:16 07/06/23 08:16 07/06/23 08:16 07/06/23 08:16 Oxygen Flow Rate (L/min) 2 Oxygen Delivery Method Nasal Cannula Weight: 195 lb 15.855 oz Body Mass Index (BMI) 33.6 Intake & Output: Intake and Output for Last 24 Hours 07/04/23 07/05/23 07/06/23 23:59 23:59 23:59 Intake Total 796.67 / 796.67 867.77 / 867.77 153 / 153 Output Total 1260 / 1560 2550 / 2550 600 / 600 Balance -463.33 / -763.33 -1682.23 / -1682.23 -447 / -447 Lab / Micro Data 07/06/23 04:05 07/06/23 04:05 Labs: Laboratory Results - last 24 hr 07/05/23 14:25: APTT 50.0 H 07/05/23 21:00: APTT 51.8 H 07/06/23 04:05: WBC 5.4, RBC 4.37, Hgb 13.3, Hct 42.9, MCV 98.2, MCH 30.4, MCHC 31.0 L, RDW Std Deviation 55.4 H, RDW Coeff of Toribio 15.3 H, Plt Count 174, MPV 8.8, Immature Gran % (Auto) 0.600, Neut % (Auto) 59.3, Lymph % (Auto) 18.8 L, [place] % (Auto) 13.0 H, Eos % (Auto) 7.2 H, Baso % (Auto) 1.1 H, Absolute Neuts (auto) 3.2, Absolute Lymphs (auto) 1.01, Nucleated RBC % 0, APTT 71.4 H, Sodium 142, Potassium 4.2, Chloride 106, Carbon Dioxide 32.0, Anion Gap 4 L, BUN 20 H, Creatinine 0.95, Estim Creat Clear Calc 40.11, Est GFR (MDRD) Af Amer 72, Est GFR (MDRD) Non-Af 60, BUN/Creatinine Ratio 21.0 H, Glucose 100, Calcium 8.7 Micro: Microbiology 07/04/23 11:25 Urine, Catheterized Urine Culture - Final Enterococcus faecalis Escherichia coli 07/04/23 15:35 Mucosa - Nasopharyngeal Respiratory Panel (PCR) - Final 07/04/23 17:15 Urine, Clean Catch Legionella Antigen - Final 07/04/23 17:15 Urine, Clean Catch Streptococcus pneumoniae Antigen (M - Final 07/04/23 15:35 Mucosa - Nose Coronavirus COVID-19 PCR - Final 07/04/23 11:31 Nasal Secretion SARS-CoV-2 & FLU Antigen (Rapid) - Final Radiography Diagnostic Testing: Radiology Impression Echocardiogram 07/04/23 16:50 Interpretation Summary The estimated ejection fraction is 65 %. Diastolic function is indeterminate. Ordering Physician: Dee Dee Jean Referring Physician: Mio Juarez Performed By: Lolly Sims RCS Physical Exam Const alert, oriented x3 and no apparent distress General Appearance: cooperative HEENT normocephalic, head/scalp atraumatic, moist oral mucous membranes and oropharynx normal Eyes PERRL and EOMs intact bilaterally Neck supple and no JVD Lymph Lymphatic: no lymphadenopathy noted and no lymphedema noted Resp Resp Narrative: mildly diminished breath sounds bibasally, no wheezes or crackles. down to 2L of oxygen by nasal canula Cardio regular rate, regular rhythm, S1 normal heart sound, S2 normal heart sound and no murmurs GI normal to inspection, nondistended, normoactive bowel sounds, soft to palpation and non-tender GI Narrative: intact steri stripes over surgical site. Extremity normal capillary refill and no clubbing, cyanosis or edema Skin General Skin Exam: no breakdown Neuro CN's II-XII intact bilaterally, no focal motor deficits, no sensory deficits noted and deep tendon reflexes 2+ bilaterally Motor Exam: strength 5/5 throughout Psych thought process normal and cooperative Appearance: appropriate Assessment & Plan Assessment/Plan (1) Hypoxia: PLAN: Plan #Acute hypoxic respiratory failure * could be related to atelectasis from recent abdominal hernia surgery * CTA chest negative for any evidence of PE * weaned down to 9L this morning * troponin elevation thought to be due to hypoxia. cardiology reviewed patient and recommend no further workup. * on breathing treatment with bronchodilators * titrate oxygen to maintain sats >90% * now down to 2L of oxygen * #NONSTEMI * troponins trended upwards and peaked at 440. * possibly a type II event in light of hypoxia * cardiology recommended no further workup as it was likely due to hypoxia * 2D echo showed EF of 65% with indeterminate diastolic function and no regional motion abnormalities noted. * heparin drip discontinued * on aspirin and high intensity statin. * * #Left breast nodular density: as per CTA. TO follow up with PCP on outpatient basis for further workup and imaging as needed #History of abdominal aortic aneurysm * s/p repair. * recently had it repaired at [facility] * follow up with vascular surgery on outpatient basis * CT of the abdomen and pelvis showed focal stranding in the subcutaneous fat of the anterior abdominal wall with pockets of air in the anterior abdominal wall extending into the peritoneal cavity which could be due to recent repair and ill-defined peritoneal density extending to the anterior abdominal wall concerning for focal inflammatory process. * has no abdominal pain or tenderness. Will monitor * #Recent UTI * placed on IV zosyn on admission. * Urinalysis showed 1+ bacteria. On IV zosyn. * urine cultures grew Enterococcus ([id number]) and E coli (<1000) * both are sensitive to nitrofurantoin * #History of uterine cancer: s/p radiation and resection. in remission. Follow up with oncology and gynecology on outpatient basis #Hyperkalemia: resolved. #Hypertension: on amlodipine. IV hydralazine prn DVT prophylaxis: heparin drip discontinued. Start SQ lovenox 40mg daily Disposition: willing to go to rehab facility. Case management on board Charges/Coding Visit Charges Inpatient E&M: 02806 Subs Hosp L2
--- NOTE | 2023-07-06 10:27 | CASEMGMT ---
KARY ELIZONDO NOTE: KARY ELIZONDO informed by Dr Bahena that pt wishes to d/c to a SNF. KARY ELIZONDO to room. Pt verifies she does want to go to a SNF @ d/c. A list of SNF providers including quality and resource use data and consistent with the patient?s preferred geographic region, medical needs, and insurance network were provided from [facility]. Pt states [facility] is her first choice. SWDesirae, made aware. Pt also provided w/a script for a rollator per pt request in the event she still would like to get one when discharges from SNF. Bettie BRIDGES RN, CM
--- NOTE | 2023-07-06 10:56 | CASEMGMT ---
Discharge Planning Referral sent to [facility] via [facility]. Mariam Person, Dicharge Planning Asst.
--- NOTE | 2023-07-06 11:00 | CASEMGMT ---
Social Work Sw presented to bedside and introduced self to patient. Patient was sitting in chair in room finishing her breakfast. Sw provided patient with information on [facility] and list of deliverable meals. Patient states that she was connected to [facility] in the past, and they discontinued services because she is able to bathe herself. Sw encouraged patient to reach out to the services again to see if there are still services that she may be eligible for. Sw also provided patient with list of meal services that she is able to get connected to. Sw talked with patient and provided support. Patient states that her daughter will be able to assist her in making phone calls to get connected to the resources sw provided. Patient does not express any other needs or concerns at this time. Donnell Nixon, VICE PRESIDENT FOR PHILANTHROPY, [employer] PATCHING MACHINE OPERATOR
[2023-07-06 15:00] VITALS: BP 124/71; PULSE 74; RESP 18; TEMP 36.6; O2SAT 93
--- NOTE | 2023-07-06 17:16 | CASEMGMT ---
Discharge Planning Patient has been accepted by [facility]. SW updated. Mariam Person, Discharge Planning Asst.
[2023-07-06 18:59] VITALS: PULSE 70; RESP 15
[2023-07-06] MEDS: Nitrofurantoin Macrocrystals 100 MG Capsule PO (20:37)
[2023-07-06 21:00] VITALS: BP 114/60; PULSE 65; RESP 18; TEMP 36.9; O2SAT 98
[2023-07-07 03:00] VITALS: BP 116/69; PULSE 56; RESP 18; TEMP 36.6; O2SAT 98
[2023-07-07 04:30] VITALS: BMI 33.5
[2023-07-07 04:35] LABS: Absolute Lymphocyte Count 1.06 X10^3/uL (0.83-4.51); Absolute Neutrophil Count 2.5 X10^3/uL (2.0-7.7); Basophil# 0.04 X10^3/uL; Basophil% 0.9 % (0-1); Eosinophil# 0.45 X10^3/uL; Eosinophils% 9.7 % (0-5); Hematocrit 42.9 % (37-47); Hemoglobin 13.3 g/dL (12.0-15.0); Lymphocyte # 1.06 X10^3/ul (0.83-4.51); Lymphocyte % 22.7 % (19-41); Mean Corpuscular Hgb 30.4 pg (27.0-32.0); Mean Corpuscular Volume 98.2 fL (81-99); Mean Platelet Vol. 8.7 fl (6.2-12.0); Monocyte# 0.59 X10^3/uL; Monocyte% 12.7 % (0-10); NRBC Flagged by Analyzer 0 % (0-5); Neutrophil % 53.6 % (47-70); Platelet Count 184 K/mm3 (150-450); RBC Distribution Width CV 15.3 % (11.6-14.6); Red Blood Count 4.37 M/mm3 (4.2-5.4); White Blood Count 4.7 K/mm3 (4.4-11.0)
[2023-07-07 04:47] LABS: Anion Gap 4 (5-15); BUN 21 mg/dL (7-18); BUN/Creat Ratio 24.2 RATIO (10-20); Calcium,Total 8.9 mg/dL (8.5-10.1); Chloride 108 mmol/L (98-107); Creatinine, Serum 0.87 mg/dL (0.55-1.02); EST Glomerular Filtration Rate 67 mL/min (>60); Est Glom Filt Rate - Afr Amer 81 mL/min (>60); Estimated Creatinine Clearance 43.79 ml/min; Glucose 104 mg/dL (74-106); Potassium 4.2 mmol/L (3.5-5.1); Sodium Level 143 mmol/L (136-145)
[2023-07-07] MEDS: Menthol/Lanolin/Calamine/Znox 113 GM Tube 1 APPLIC TOPICAL ×2 (05:14→08:43)
[2023-07-07] MEDS: Nystatin Powder 15gm Bottle 1 APPLIC TOPICAL (05:14)
[2023-07-07] MEDS: Budesonide Respules 0.5 MG/2 ML AMPUL.NEB. INHALATION (07:24)
--- NOTE | 2023-07-07 07:28 | PN.CC_ITS ---
Assessment & Plan Assessment/Plan (1) Hypoxia: PLAN: Plan RECOMMENDATIONS: 1. Wean supplemental oxygen to maintain saturations at or above 90%. 2. Aggressive incentive spirometer use and mobilize patient as tolerated. 3. Avoid sedating medications, if feasible. 4. Okay to discontinue antimicrobials. 5. We will sign off from a pulmonary/critical care perspective. Please call w ith any additional questions. IMPRESSIONS: 1. Hypoxemia Most likely secondary to atelectasis in the setting of recent abdominal surgery. CTA chest was negative for pulmonary embolism, but did demonstrate bibasilar atelectatic changes. Recommend continuing supplemental oxygen to maintain saturations at or above 90%. Continue to encourage aggressive incentive spirometer use and mobilize patient as tolerated. 2. Encephalopathy Potentially related to opiate medication utilization. Although the patient was reportedly diagnosed recently with a UTI, her urine culture dated July 02 only demonstrated minimal growth of Enterococcus. Therefore, acute UTI seems unlikely. Antibiotics can be discontinued from my perspective. 3. NSTEMI Continue management per hospitalist. 4. History of chronic kidney disease/obesity/hypertension/hyperlipidemia/history of AAA Complicates care, management, recovery and prognosis. Continue home medications as indicated. This note was generated with [employer] dictation software. It may contain incorrect words, spelling, and punctuation that were not noted in checking the note before signing. Subjective Subjective The patient was seen and examined at the bedside this morning. Events from the last 24 hours have been reviewed. The patient is currently afebrile, hemodynamically stable and maintaining appropriate oxygen saturations on 2 L/min cannula. The patient is sitting upright in bed, eating breakfast. She has no specific complaints this morning. Objective Data Objective Data The patient's most recent lab work, culture data and imaging studies have all been personally reviewed. Urine culture dated July 04 was positive for Enterococcus and E. coli, both of which only demonstrated minimal growth. Vital Signs: Vital Signs Temp Pulse Resp BP Pulse Ox O2 Del Method O2 Flow Rate 98 F 56 L 18 116/69 98 Nasal Cannula 4 07/07/23 03:00 07/07/23 03:00 07/07/23 03:00 07/07/23 03:00 07/07/23 03:00 07/07/23 03:00 07/07/23 03:00 Oxygen Flow Rate (L/min) 4 Oxygen Delivery Method Nasal Cannula Weight: 195 lb 5.273 oz Body Mass Index (BMI) 33.5 Intake & Output: Intake and Output for Last 24 Hours 07/05/23 07/06/23 07/07/23 23:59 23:59 23:59 Intake Total 867.77 / 867.77 153 / 153 Output Total 2550 / 2550 950 / 1350 400 / 400 Balance -1682.23 / -1682.23 -797 / -1197 -400 / -400 Lab / Micro Data Attestation: I reviewed the patient's lab results. 07/07/23 04:25 07/07/23 04:25 Labs: Laboratory Results - last 24 hr 07/07/23 04:25: WBC 4.7, RBC 4.37, Hgb 13.3, Hct 42.9, MCV 98.2, MCH 30.4, MCHC 31.0 L, RDW Std Deviation 55.0 H, RDW Coeff of Toribio 15.3 H, Plt Count 184, MPV 8.7, Immature Gran % (Auto) 0.400, Neut % (Auto) 53.6, Lymph % (Auto) 22.7, [place] % (Auto) 12.7 H, Eos % (Auto) 9.7 H, Baso % (Auto) 0.9, Absolute Neuts (auto) 2.5, Absolute Lymphs (auto) 1.06, Nucleated RBC % 0, Sodium 143, Potassium 4.2, Chloride 108 H, Carbon Dioxide 31.0, Anion Gap 4 L, BUN 21 H, Creatinine 0.87, Estim Creat Clear Calc 43.79, Est GFR (MDRD) Af Amer 81, Est GFR (MDRD) Non-Af 67, BUN/Creatinine Ratio 24.2 H, Glucose 104, Calcium 8.9 Micro: Microbiology 07/04/23 12:10 Blood Culture (Wb) - Anticubital Right Blood Culture - Preliminary No growth in 5 days. 07/04/23 10:30 Blood Culture (Wb) - Anticubital Right Blood Culture - Preliminary No growth in 5 days. 07/04/23 11:25 Urine, Catheterized Urine Culture - Final Enterococcus faecalis Escherichia coli 07/04/23 15:35 Mucosa - Nasopharyngeal Respiratory Panel (PCR) - Final 07/04/23 17:15 Urine, Clean Catch Legionella Antigen - Final 07/04/23 17:15 Urine, Clean Catch Streptococcus pneumoniae Antigen (M - Final 07/04/23 15:35 Mucosa - Nose Coronavirus COVID-19 PCR - Final 07/04/23 11:31 Nasal Secretion SARS-CoV-2 & FLU Antigen (Rapid) - Final Physical Exam Const alert and no apparent distress General Appearance: cooperative HEENT normocephalic and head/scalp atraumatic Eyes PERRL, EOMs intact bilaterally and conjunctivae normal Neck supple General: trachea midline Chest inspection of chest normal Resp normal respiratory effort Resp Narrative: Mild basilar rales. Cardio regular rate and regular rhythm GI normal to inspection, nondistended, normoactive bowel sounds Extremity no clubbing, cyanosis or edema Skin no rashes or lesions noted Neuro CN's II-XII intact bilaterally and no focal motor deficits Psych cooperative and affect normal Charges/Coding Visit Charges Inpatient E&M: 81686 Subs Hosp L2
[2023-07-07 08:39] VITALS: BP 127/74; PULSE 68; RESP 20; TEMP 36.4; O2SAT 96
[2023-07-07] MEDS: Nitrofurantoin Macrocrystals 100 MG Capsule PO (08:42)
[2023-07-07] MEDS: Aspirin E.C. 81 MG Tablet PO (08:43)
[2023-07-07] MEDS: amLODIPine 5 MG Tablet PO (08:43)
[2023-07-07 09:03] VITALS: PULSE 79; RESP 18; O2SAT 97
--- NOTE | 2023-07-07 09:48 | CASEMGMT ---
Social Work SW met with pt and introduced self and role of SW. SW updated pt that [facility] is able to accept when medically ready. Pt agreeable to discharge to [facility]. SW offered to all pt's family to update. Pt denied stating she would text them and update. Physician updated. Plan: [facility], when medically ready NAJMA [place]
--- NOTE | 2023-07-07 10:41 | TREXTCAR_ITS ---
Diet Diet Order/Speech Therapy: 07/04/23 16:50 Diet: Cardiac - Heart Healthy Food consistency:: Regular Liquid Consistency:: Regular/Thin Routine Orders/Code Status Enema Type: Fleetz Enema Frequency: Daily PRN Suppository Type: Dulcolax 10mg Suppository Frequency: Daily PRN O2 Frequency: PRN Keep PO Greater than or Equal to (%): 90 Wound(s) Abdomen: Wound Type: Surgical Incision Therapies Weight Bearing: Weight bearing as tolerated Physical Therapy: Eval and Treat Occupational Therapy: Eval and Treat Problem/Diagnosis (1) Hypoxia: Status: Acute Code(s): R09.02 - Hypoxemia Plan #Acute hypoxic respiratory failure * could be related to atelectasis from recent abdominal hernia surgery * CTA chest negative for any evidence of PE * weaned down to 9L this morning * troponin elevation thought to be due to hypoxia. cardiology reviewed patient and recommend no further workup. * on breathing treatment with bronchodilators * titrate oxygen to maintain sats >90% * now down to 2L of oxygen * #NONSTEMI * troponins trended upwards and peaked at 440. * possibly a type II event in light of hypoxia * cardiology recommended no further workup as it was likely due to hypoxia * 2D echo showed EF of 65% with indeterminate diastolic function and no regional motion abnormalities noted. * heparin drip discontinued * on aspirin and high intensity statin. * * #Left breast nodular density: as per CTA. TO follow up with PCP on outpatient basis for further workup and imaging as needed #History of abdominal aortic aneurysm * s/p repair. * recently had it repaired at [facility] * follow up with vascular surgery on outpatient basis * CT of the abdomen and pelvis showed focal stranding in the subcutaneous fat of the anterior abdominal wall with pockets of air in the anterior abdominal wall extending into the peritoneal cavity which could be due to recent repair and ill-defined peritoneal density extending to the anterior abdominal wall concerning for focal inflammatory process. * has no abdominal pain or tenderness. Will monitor * #Recent UTI * placed on IV zosyn on admission. * Urinalysis showed 1+ bacteria. On IV zosyn. * urine cultures grew Enterococcus ([id number]) and E coli (<1000) * both are sensitive to nitrofurantoin * #History of uterine cancer: s/p radiation and resection. in remission. Follow up with oncology and gynecology on outpatient basis #Hyperkalemia: resolved. #Hypertension: on amlodipine. IV hydralazine prn DVT prophylaxis: heparin drip discontinued. Start SQ lovenox 40mg daily Disposition: willing to go to rehab facility. Case management on board Allergies/Procedures Done in Hospital Allergies rosuvastatin [From Crestor] Allergy (Severe, Verified 07/04/23 10:18) stomach pains shellfish derived Allergy (Severe, Verified 07/04/23 10:18) MOUTH SORES sulfamethoxazole [From Bactrim] Allergy (Unknown, Verified 07/04/23 10:18) unknown trimethoprim [From Bactrim] Allergy (Unknown, Verified 07/04/23 10:18) unknown Procedures: 2-D Echocardiogram Type of Care/Length of Stay Estimated LOS: Convalescent Care Less Than 30 days Type of Care Needed: Skilled Rehab Potential: Fair Prognosis: Fair Additional Orders/Day of Discharge Day of Discharge: 07/07/23 Dietary and Speech Recommendations Dietitian Recommendations/Changes: Continue Cardiac diet as ordered Discharge Plan Admission Admit Date/Time: 07/04/23 15:08 Primary Reason for Your Visit: hypoxia Attending Provider: Ashley Bahena Primary Care Provider: Mio Juarez Consulting Providers: Jaswant Lemos; Lemuel Morgan; Preston Mckinnon; Dejan Fam; Gissell Hills NP; Dee Dee Jean; Jung Tanner Instructions Patient Instructions: ED Atelectasis Discharge Orders/Prescriptions Prescriptions: New nitrofurantoin monohyd/m-cryst 100 mg Capsule 100 mg PO BID Qty: 8 0RF Continued amlodipine 5 mg tablet See Rx Instructions .ROUTE .COMPLEX Qty: 90 3RF Dose Instruction: take 1 tablet by mouth once daily Rx Instructions: take 1 tablet by mouth once daily oxycodone-acetaminophen 5-325 mg tablet 1 tab PO Q6H PRN (Reason: pain) Patient Comments: take 1 tablet by mouth every 6 hours if needed for up to 5 days miconazole nitrate [Desenex] 2 % powder 1 applic topical BID Qty: 85 3RF Discontinued cephalexin 500 mg tablet 500 mg PO TID Qty: 15 0RF Referrals / Follow Up: Mio Juarez MD [Primary Care Provider] - Within 1 Week Disposition Disposition (needs filled in before D/C Order can be placed): [facility]
--- NOTE | 2023-07-07 10:46 | DS.PCM_ITS ---
Providers Date of Admission: 07/04/23 Date of Discharge: 07/07/23 Primary Care Physician: Dr. Mio Juarez MD Consultations 07/04/23 18:30 Consult: Correctional Lieutenant / Pulmonary Medicine Routine Consulting Provider: [facility] Reason for Consult: NSTEMI/ Respiratory faliure EMERGENT Consult: No Notified: Yes Date Notified: 07/04/23 Time Notified: 18:30 Method of Notification: Text 07/04/23 18:48 Consult: Onc/Wound/radar mechanic Routine Comment: Reason for Consult:: multiple areas excoriation, severe Comments:: per patient, chronic problem 07/05/23 07:50 Consult: Cardiology Routine Consulting Provider: Jung Tanner Reason for Consult: nstemi EMERGENT Consult: No Notified: Yes Date Notified: 07/05/23 Time Notified: 07:50 Method of Notification: Text Reason For Visit: HYPOXIC RESPIRATORY FAILURE, NSTEMI Diagnosis Discharge Diagnosis (1) Hypoxia: Status: Acute Code(s): R09.02 - Hypoxemia Plan #Acute hypoxic respiratory failure * could be related to atelectasis from recent abdominal hernia surgery * CTA chest negative for any evidence of PE * weaned down to 9L this morning * troponin elevation thought to be due to hypoxia. cardiology reviewed patient and recommend no further workup. * on breathing treatment with bronchodilators * titrate oxygen to maintain sats >90% * now down to 2L of oxygen * #NONSTEMI * troponins trended upwards and peaked at 440. * possibly a type II event in light of hypoxia * cardiology recommended no further workup as it was likely due to hypoxia * 2D echo showed EF of 65% with indeterminate diastolic function and no regional motion abnormalities noted. * heparin drip discontinued * on aspirin and high intensity statin. * * #Left breast nodular density: as per CTA. TO follow up with PCP on outpatient basis for further workup and imaging as needed #History of abdominal aortic aneurysm * s/p repair. * recently had it repaired at [facility] * follow up with vascular surgery on outpatient basis * CT of the abdomen and pelvis showed focal stranding in the subcutaneous fat of the anterior abdominal wall with pockets of air in the anterior abdominal wall extending into the peritoneal cavity which could be due to recent repair and ill-defined peritoneal density extending to the anterior abdominal wall concerning for focal inflammatory process. * has no abdominal pain or tenderness. Will monitor * #Recent UTI * placed on IV zosyn on admission. * Urinalysis showed 1+ bacteria. On IV zosyn. * urine cultures grew Enterococcus ([id number]) and E coli (<1000) * both are sensitive to nitrofurantoin * #History of uterine cancer: s/p radiation and resection. in remission. Follow up with oncology and gynecology on outpatient basis #Hyperkalemia: resolved. #Hypertension: on amlodipine. IV hydralazine prn DVT prophylaxis: heparin drip discontinued. Start SQ lovenox 40mg daily Disposition: willing to go to rehab facility. Case management on board Medications at Discharge Home Medications amlodipine 5 mg tablet See Rx Instructions .Route .COMPLEX #90 TABLETS 04/23/23 miconazole nitrate 2 % topical powder (Desenex) 1 applic topical BID #85 grams 04/23/23 oxycodone-acetaminophen 5 mg-325 mg tablet 1 tab PO Q6H PRN pain 07/04/23 nitrofurantoin monohydrate/macrocrystals 100 mg capsule 100 mg PO BID #8 caps 07/07/23 Hospital Course Operations None Procedures None Summary of Care Provided Minutes Spent on Discharge: 45 Hospital Course: Patient is an 83 y/o female with a PMH as outlined who was admitted via the ED on 07/05/2023 with a complaint of altered mental status. She had recently had abdominal hernia surgery at [facility] a few days before admission. On admission she was saturating at 82% n room air, and chemistry was significant for 5.2. CT abdomen and pelvis showed stigmata of recent hernia surgery without discernible abscess. COVID and flu test were negative. She was admitted and managed for acute encephalopathy in the setting of acute hypoxic respiratory failure. Troponins were also elevated so she was also managed for non-STEMI which was likely type II non-STEMI due to demand ischemia from hypoxia. Correctional Lieutenant was consulted and they felt that her respiratory failure was likely due to atelectasis from recent abdominal surgery. 2D echo showed EF of 65% with indeterminate diastolic function and no regional wall motion abnormalities noted. She had been on heparin drip and this was discontinued. CT of the chest was negative for any evidence of PE. Cardiology reviewed and thought his symptoms were likely due to the demand ischemia and she did not require any further work-up. Her oxygen was weaned down until she was down to 2 L of oxygen. She felt much better. Patient initially wanted to go home but her daughter convinced her to go to a rehab facility as she did not have enough help at home. Of note patient had recently had a UTI. She had been placed on IV Zosyn while in the hospital and urine cultures grew Enterococcus and E. coli's which are both sensitive to nitrofurantoin. She was therefore placed on p.o. nitrofurantoin to complete a 5-day course. She was discharged senior care facility on 07/07/2023 and is follow-up with her primary care doctor within 1 to 2 weeks. Patient seen and examined prior to discharge. She had no active complaints and had an uneventful night. Review of systems otherwise negative. Labs and vitals reviewed. Medication reviewed and reconciled. She was given a prescription for p.o. nitrofurantoin for 4-day course to complete a 5-day complete course. Physical Exam Const alert, oriented x3 and no apparent distress General Appearance: cooperative, comfortable and well kempt HEENT normocephalic, head/scalp atraumatic, hearing grossly normal bilaterally, moist oral mucous membranes and oropharynx normal Mouth: oral and palatal mucosa normal Eyes PERRL, EOMs intact bilaterally and conjunctivae normal Neck no lymphadenopathy, supple and no JVD Lymph Lymphatic: no lymphadenopathy noted and no lymphedema noted Resp Resp Narrative: mildly diminished breath sounds bibasally, no wheezes or crackles. down to 2L of oxygen by nasal canula Cardio regular rate, regular rhythm, S1 normal heart sound, S2 normal heart sound and no murmurs GI normal to inspection, nondistended, normoactive bowel sounds, soft to palpation and non-tender GI Narrative: intact steri stripes over surgical site. Extremity normal to inspection, full ROM, normal capillary refill and no clubbing, cyanosis or edema Skin no rashes or lesions noted General Skin Exam: no breakdown Neuro oriented x3, CN's II-XII intact bilaterally, moves all extremities, no focal motor deficits, no sensory deficits noted and deep tendon reflexes 2+ bilaterally Sensorium / Orientation: awake and alert Motor Exam: strength 5/5 throughout Psych thought process normal and cooperative Appearance: appropriate Weight / BMI Weight Weight: 195 lb 5.273 oz Body Mass Index (BMI) 33.5 ABG / Lab / Microbiology Data 08/30/23 04:25 07/07/23 04:25 Laboratory: Laboratory Results - last 24 hr 07/07/23 04:25: WBC 4.7, RBC 4.37, Hgb 13.3, Hct 42.9, MCV 98.2, MCH 30.4, MCHC 31.0 L, RDW Std Deviation 55.0 H, RDW Coeff of Toribio 15.3 H, Plt Count 184, MPV 8.7, Immature Gran % (Auto) 0.400, Neut % (Auto) 53.6, Lymph % (Auto) 22.7, [place] % (Auto) 12.7 H, Eos % (Auto) 9.7 H, Baso % (Auto) 0.9, Absolute Neuts (auto) 2. 5, Absolute Lymphs (auto) 1.06, Nucleated RBC % 0, Sodium 143, Potassium 4.2, Chloride 108 H, Carbon Dioxide 31.0, Anion Gap 4 L, BUN 21 H, Creatinine 0.87, Estim Creat Clear Calc 43.79, Est GFR (MDRD) Af Amer 81, Est GFR (MDRD) Non-Af 67, BUN/Creatinine Ratio 24.2 H, Glucose 104, Calcium 8.9 Microbiology: Microbiology 07/04/23 12:10 Blood Culture (Wb) - Anticubital Right Blood Culture - Preliminary No growth in 5 days. 07/04/23 10:30 Blood Culture (Wb) - Anticubital Right Blood Culture - Preliminary No growth in 5 days. 07/04/23 11:25 Urine, Catheterized Urine Culture - Final Enterococcus faecalis Escherichia coli 07/04/23 15:35 Mucosa - Nasopharyngeal Respiratory Panel (PCR) - Final 07/04/23 17:15 Urine, Clean Catch Legionella Antigen - Final 07/04/23 17:15 Urine, Clean Catch Streptococcus pneumoniae Antigen (M - Final 07/04/23 15:35 Mucosa - Nose Coronavirus COVID-19 PCR - Final 07/04/23 11:31 Nasal Secretion SARS-CoV-2 & FLU Antigen (Rapid) - Final D/C Instructions Discharge Diet: Low fat / Low cholesterol Discharge Activity: Return to Normal Activity Weight Bearing Status: Weight bearing as tolerated Call your doctor if you observe: Fever of 101 or Higher, Shortness of breath, Dizziness, Swelling in the ankles and Chest pain Meaningful Use Info Meaningful Use Diagnoses (Choose all that apply): None applicable Discharge Plan Admission Admit Date/Time: 07/04/23 15:08 Primary Reason for Your Visit: hypoxia Attending Provider: sAhley Bahena Primary Care Provider: Mio Juarez Consulting Providers: Jaswant Lemos; Lemuel Morgan; Preston Mckinnon; Dejan Fam; Gissell Hills NP; Dee Dee Jean; Jung Tanner Instructions Patient Instructions: ED Atelectasis Discharge Orders/Prescriptions Prescriptions: New nitrofurantoin monohyd/m-cryst 100 mg Capsule 100 mg PO BID Qty: 8 0RF Continued amlodipine 5 mg tablet See Rx Instructions .ROUTE .COMPLEX Qty: 90 3RF Dose Instruction: take 1 tablet by mouth once daily Rx Instructions: take 1 tablet by mouth once daily oxycodone-acetaminophen 5-325 mg tablet 1 tab PO Q6H PRN (Reason: pain) Patient Comments: take 1 tablet by mouth every 6 hours if needed for up to 5 days miconazole nitrate [Desenex] 2 % powder 1 applic topical BID Qty: 85 3RF Discontinued cephalexin 500 mg tablet 500 mg PO TID Qty: 15 0RF Referrals / Follow Up: Mio Juarez MD [Primary Care Provider] - Within 1 Week Disposition Disposition (needs filled in before D/C Order can be placed): [facility] Charges/Coding Visit Charges Inpatient E&M: 97311 Disch Hosp >30min
--- NOTE | 2023-07-07 14:01 | CASEMGMT ---
Discharge Planning Discharge orders, signed med list, covid results, and transport time sent to [facility] via [facility]. [facility] will transport patient by wheelchair at 4p. Nursing, SW, and patients daughter updated. Mariam Person, Discharge Planning Asst.
[2023-07-07 15:59] VITALS: BP 138/78; PULSE 81; RESP 21; TEMP 37.1; O2SAT 94
== END 2023-07-07 16:37 | DRG 189 ==
LOC: ED 15:54 → ICU 16:05
PROVIDERS: Nurse Practitioner; Admitting Provider Family Medicine; Emergency Provider Emergency Medicine; PCP Internal Medicine; Visit Provider Student in an Organized Health Care Education/Training Program
DX: J96.01 Acute respiratory failure with hypoxia (principal); G92.8 Other toxic encephalopathy; I21.A1 Myocardial infarction type 2; J98.11 Atelectasis; N18.30 Chronic kidney disease, stage 3 unspecified; I12.9 Hypertensive chronic kidney disease with stage 1 through stage 4 chronic kidney disease, or unspecified chronic kidney disease; E87.5 Hyperkalemia; E78.5 Hyperlipidemia, unspecified; I89.0 Lymphedema, not elsewhere classified; E66.9 Obesity, unspecified; T40.2X5A Adverse effect of other opioids, initial encounter; N63.20 Unspecified lump in the left breast, unspecified quadrant; R39.89 Other symptoms and signs involving the genitourinary system; Z68.36 Body mass index [BMI] 36.0-36.9, adult; Z79.82 Long term (current) use of aspirin; Z79.899 Other long term (current) drug therapy; Z85.42 Personal history of malignant neoplasm of other parts of uterus; Z86.16 Personal history of COVID-19
CPT/HCPCS: 36600; 71045; 71275; 74176; 80048; 80053; 80061; 81001; 82803; 83605; 83735; 83880; 84145; 84484; 85025; 85610; 85730; 87040; 87077; 87086; 87088; 87186; 87428; 87449; 87633; 87635; 87641; 87811; 93005; 93306; 94640; 94668; 97162; 97166; 97530; 97535; 99252; 99285; J7030; Q9957; Q9967; A4216; G0463; J1940; J2405

== ENCOUNTER 2023-07-30 15:12 | Inpatient (IN) | payer MEDICARE, BC, SELFPAY ==
[2023-07-30] VITALS (9 sets, daily range): BP systolic 115–133; BP diastolic 50–76; PULSE 64–78; RESP 16–26; TEMP 36.2–37.2; O2SAT 85–96; BMI 31.3; BMI 33.0
--- NOTE | 2023-07-30 15:32 | EKG12_ITS ---
Test Reason : Blood Pressure : / mmHG Vent. Rate : 077 BPM Atrial Rate : 077 BPM P-R Int : 164 ms QRS Dur : 092 ms QT Int : 400 ms P-R-T Axes : 044 -11 064 degrees QTc Int : 452 ms Normal sinus rhythm Normal ECG Confirmed by BRYNN SHELTON, VICK ([id number]), news copy editor RIA MOCK ([id number]) on 08/03/2023 10:28:11 AM Referred By: Confirmed By:SYMONE SWAIN MD
--- NOTE | 2023-07-30 15:34 | EDS_ITS ---
HPI History of Present Illness Chief Complaint: General Illness Detail of Chief Complaint: Abdominal pain from the epigastric to umbilicus with nausea and vomiting Informant: patient and family Onset/Context/Timing Onset: Days (Wednesday, July 27) Context: Sudden Onset Timing: Continuous (Pain has been continuous) and Intermittent (The nausea with vomiting and dry heaves has been intermittent) Quality: Rolling wavy pain Location: Subxiphoid to umbilicus Current Severity: Mild Maximum Severity: Severe Worsened by: Possibly eating and nothing specific regarding food type Relieved by: Nothing Associated Symptoms Associated Symptoms: Patient was hypoxic but denies respiratory or cardiac symptoms. Narrative Narrative: Patient is an 83-year-old woman who presents because of subxiphoid pain to the [place] started Wednesday with nausea and vomiting. She has not vomited since Wednesday at 8 PM. She is still flagellated. Last bowel movement was Wednesday. This is abnormal for her. She states she normally goes once a day. She denies chest tightness, pressure or heaviness. She denies cough, shortness of breath or dyspnea on exertion. Patient denies orthopnea. Patient denies leg pain or leg swelling. There is no history of PE or DVT. Patient did have abdominal surgery at [facility] [address] Enciso. Prior similar symptoms: No Recent Illness/Hospitalization: Yes PFSH PFSH Medical History Bilateral lower extremity edema History of abdominal aortic aneurysm (AAA) History of COVID-19 History of skin cancer History of uterine cancer Hyperlipidemia Hypertension Intertriginous dermatitis associated with moisture Obesity Urinary incontinence, mixed Venous insufficiency of both lower extremities Home Medications amlodipine 5 mg tablet See Rx Instructions .Route .COMPLEX #90 TABLETS 07/19/23 [Rx Last Taken Unknown] Allergy/AdvReac Type Severity Reaction Status Date / Time rosuvastatin [From Crestor] Allergy Severe stomach Verified 07/30/23 15:20 pains shellfish derived Allergy Severe MOUTH SORES Verified 07/30/23 15:20 sulfamethoxazole Allergy Unknown unknown Verified 07/30/23 15:20 [From Bactrim] trimethoprim [From Bactrim] Allergy Unknown unknown Verified 07/30/23 15:20 Family History Son Alcoholism Grandmother No problems noted. Mother Heart disease Hypertension CVA (cerebral vascular accident) Father Cancer throat Surgical History History of hernia repair History of hysterectomy History of recent surgery Hx of endovascular stent graft for abdominal aortic aneurysm Social History Smoking Status: Never smoker alcohol intake: never substance use type: does not use what type of physical activity do you participate in: walking and aerobics ROS ROS ED Constitutional Constitutional ED: Denies chills, fever(s), subjective, sweats or weight loss Eyes Eyes: Denies blurry vision, change in vision or diplopia ENT ENT ED: Denies ear pain, rhinorrhea or sore throat Cardiovascular Cardiovascular: Denies chest pain, orthopnea, palpitations, paroxysmal nocturnal dyspnea or racing heartbeat Respiratory/Chest Respiratory/Chest: Denies cough, dyspnea, dyspnea on exertion, orthopnea or paroxysmal nocturnal dyspnea Gastrointestinal Gastrointestinal: Reports abdominal pain, constipation, nausea and vomiting; Denies diarrhea or melena Genitourinary Genitourinary ED: Denies dysuria, hematuria or urinary frequency Musculoskeletal Musculoskeletal: Denies arthralgias, back pain, myalgias or neck pain Integumentary Denies abscess, Abrasions or rash Neurologic Neurologic: Denies headache(s), paresthesias or weakness Endocrine Endocrinology: Denies cold intolerance or heat intolerance Hematologic/Lymphatic Hematologic/Lymphatic: Reports as per HPI EXAM Physical Exam Const Vital Signs: 07/30/23 15:13 07/30/23 15:13 07/30/23 15:18 Temperature 97.3 F L Temperature Source Temporal Pulse Rate 78 Respiratory Rate 17 Respiratory Effort Normal Respiratory Pattern Normal Blood Pressure 130/76 H Blood Pressure Mean 94 Pulse Ox 85 93 Oxygen Delivery Method Room Air Nasal Cannula Oxygen Flow Rate (L/min) 3 07/30/23 15:21 07/30/23 16:26 07/30/23 16:26 Temperature 97.3 F L 98.3 F Temperature Source Temporal Temporal Pulse Rate 78 74 74 Respiratory Rate 17 25 H 25 H Respiratory Effort Respiratory Pattern Blood Pressure 130/76 H 119/68 119/68 Blood Pressure Mean 94 85 85 Pulse Ox 93 95 95 Oxygen Delivery Method Nasal Cannula Nasal Cannula Nasal Cannula Oxygen Flow Rate (L/min) 3 3 07/30/23 17:49 07/30/23 17:49 Temperature 97.2 F L Temperature Source Temporal Pulse Rate 68 68 Respiratory Rate 20 H 20 H Respiratory Effort Respiratory Pattern Blood Pressure 115/50 L 115/50 L Blood Pressure Mean 71 71 Pulse Ox 94 94 Oxygen Delivery Method Nasal Cannula Nasal Cannula Oxygen Flow Rate (L/min) 3 3 Positive well nourished, well developed and obese Constitutional Narrative: Patient is presently on 3 L of oxygen by nasal cannula with a 92% saturation. Of note her pulse ox is 85% on room air. General Appearance ED: well developed, NAD and pallor; Negative for cyanotic or diaphoretic Nutritional Appearance: obese HEENT Reports moist mucous membranes HEENT Narrative: Head is atraumatic and normocephalic. Ears are normal. Nares are patent. Posterior pharynx unremarkable. Eyes PERRL and EOMs intact bilaterally General Eye ED: Negative for pale conjunctiva or scleral icterus Neck no lymphadenopathy, supple and no JVD Chest Wall inspection of chest normal and palpation of chest normal Resp normal respiratory effort and No clear to auscultation bilaterally Auscultation: rales bilateral base Cardio regular rate, regular rhythm, S1 normal heart sound, S2 normal heart sound and no murmurs GI normal to inspection, nondistended, normoactive bowel sounds, non-distended and no masses; Negative for non-tender or hepatosplenomegaly Inspection: Negative for abdominal distention Auscultation: hypoactive bowel sounds Palpation: soft and tender epigastric, McBurney's point, periumbilical, suprapubic and Shelby's sign Back/Spine no CVA tenderness Extremity normal to inspection General Extremety ED: Negative for edema or tenderness General Extremity: Negative for edema Neuro oriented x3, No CN's II-XII intact bilaterally and No no sensory deficits noted Sensorium / Orientation: alert Psych mental status grossly normal Skin no rashes or lesions noted, no wounds and skin turgor normal General Skin Exam: pallor; Negative for jaundice MDM MDM MDM Narrative Medical decision making narrative: Patient's upper abdominal discomfort may represent atypical presentation for cardiac ischemia. Also need to consider pulmonary embolus since she had recent surgery with hypoxia. EKG was obtained to assess for acute ischemia. CBC to assess white count and H&H since patient appears pale will need to rule out anemia. BMP was obtained because patient may need a CTA and need to assess renal function. Also in consideration need to rule out aspiration pneumonitis since patient has vomited several times and the fact that she has rales. Congestive heart failure is also a consideration. History & Record Review Additional record(s) reviewed:: Prior inpatient record, Prior ED visit and Prior labs Lab Data Attestation: I reviewed the patient's lab results. Lab results narrative: White count is normal. H&H is higher than baseline. His BUN and creatinine is higher baseline at 28 and 1.26. BUN to creatinine ratio is greater than 20-1 and consistent with prerenal azotemia as well as acute renal insufficiency. First troponin is normal. Liver enzymes are unremarkable. Glucose is 124 with a normal CO2 and anion gap. Labs: Laboratory Results - last 24 hr 07/30/23 15:25 WBC 7.5 RBC 5.23 Hgb 16.0 H Hct 49.7 H MCV 95.0 MCH 30.6 MCHC 32.2 RDW Std Deviation 51.2 H RDW Coeff of Toribio 14.6 Plt Count 239 MPV 9.5 Immature Gran % (Auto) 0.300 Neut % (Auto) 72.1 H Lymph % (Auto) 13.5 L [place] % (Auto) 11.4 H Eos % (Auto) 2.0 Baso % (Auto) 0.7 Absolute Neuts (auto) 5.4 Absolute Lymphs (auto) 1.01 Nucleated RBC % 0 Sodium 139 Potassium 3.7 Chloride 103 Carbon Dioxide 29.0 Anion Gap 7 BUN 28 H Creatinine 1.26 H Estim Creat Clear Calc 32.78 Est GFR (MDRD) Af Amer 52 L Est GFR (MDRD) Non-Af 43 L BUN/Creatinine Ratio 22.2 H Glucose 125 H Calcium 9.7 Total Bilirubin 0.70 AST 12 L ALT 17 Alkaline Phosphatase 119 H Troponin I High Sens 9 B-Natriuretic Peptide 24.6 Total Protein 7.7 Albumin 3.5 Globulin 4.2 Albumin/Globulin Ratio 0.8 L Lipase 51 Radiography Chest X-Ray - ED: 2 View and Read by ED Physician (The film slightly rotated. There is no evidence of acute process. Cardiac silhouette is normal. Cardiac silhouette is borderline cardiomegaly. Perihilar regions unremarkable. Osseous structures are well.) Diagnostic Testing: Clinical Impression(s) from Imaging Studies Chest X-Ray 07/30/23 15:43 IMPRESSION: No radiographic evidence of acute cardiopulmonary disease. Electronically Signed: Jahaira Chaney MD at 16:28 EDT , Chest CTA 07/30/23 17:10 IMPRESSION: No pulmonary emboli or aortic dissection. Changes of pulmonary hypertension. No acute pulmonary findings. Electronically Signed: Tino Rosales MD at 18:06 EDT , EKG Initial EKG: Attestation: I personally reviewed and interpreted this EKG as follows: Interpretation: Sinus Rhythm (EKG is normal with a ventricular rate of 77. TN interval is_4 ms. Cures duration 92 ms. QT duration 400 ms. [place] is normal.) Treatment and Re-Evaluation :: CTA of the chest was obtained since patient has risk factors for pulmonary embolus and is hypoxic with a negative cardiac work-up i.e. troponin is normal, BNP is normal and chest x-ray is normal. The hospitalist was paged at [phone] because patient is hypoxic requiring oxygen is abnormal. The etiology is undetermined. Discharge Plan Triage Chief Complaint: General Illness ED Provider: Tristen Read Dx/Rx/DC Orders Clinical Impression: Acute respiratory failure with hypoxia, History of uterine cancer, Hyperlipidemia, History of hypertension Prescriptions: No Action amlodipine 5 mg tablet See Rx Instructions .ROUTE .COMPLEX Qty: 90 3RF Dose Instruction: take 1 tablet by mouth once daily Rx Instructions: take 1 tablet by mouth once daily Primary Care Provider: Mio Juarez Referrals: Mio Juarez MD [Primary Care Provider] - Disposition Disposition: [facility]
--- NOTE | 2023-07-30 15:43 | RAD_ITS ---
INDICATION: Bibasilar rales and hypoxia EXAMINATION/TECHNIQUE: X-RAY - XR Chest 2 Views COMPARISON: Prior study dated: July 04, [address] FINDINGS: LINES/DEVICES: None. LUNGS: No new consolidation, edema or effusion. No pneumothorax. MEDIASTINUM AND CARDIOVASCULAR STRUCTURES: There is stable cardiomegaly. There is stable right paratracheal and right perihilar fullness. BONES AND SOFT TISSUES: Unremarkable. RAD/Chest PA and Lateral IMPRESSION: No radiographic evidence of acute cardiopulmonary disease. Electronically Signed: Jahaira Chaney MD at 16:28 EDT ,
[2023-07-30] MEDS: 0.9% Normal Saline (1000mL) 1,000 ML 150 ML IV (15:55)
[2023-07-30 16:10] LABS: Absolute Lymphocyte Count 1.01 X10^3/uL (0.83-4.51); Absolute Neutrophil Count 5.4 X10^3/uL (2.0-7.7); Basophil# 0.05 X10^3/uL; Basophil% 0.7 % (0-1); Eosinophil# 0.15 X10^3/uL; Hematocrit 49.7 % (37-47); Lymphocyte # 1.01 X10^3/ul (0.83-4.51); Lymphocyte % 13.5 % (19-41); Mean Corp Hgb Conc 32.2 g/dL (32-36); Mean Corpuscular Hgb 30.6 pg (27.0-32.0); Mean Platelet Vol. 9.5 fl (6.2-12.0); Monocyte# 0.85 X10^3/uL; Monocyte% 11.4 % (0-10); NRBC Flagged by Analyzer 0 % (0-5); Neutrophil # 5.39 X10^3/uL (2.7-7.7); Neutrophil % 72.1 % (47-70); Platelet Count 239 K/mm3 (150-450); RBC Distribution Width CV 14.6 % (11.6-14.6); RBC Distribution Width SD 51.2 fl (35.1-43.9); Red Blood Count 5.23 M/mm3 (4.2-5.4); White Blood Count 7.5 K/mm3 (4.4-11.0)
[2023-07-30] MEDS: Ondansetron 4 MG/2 ML Vial IV (16:13)
[2023-07-30 16:17] LABS: ALB/GLOB Ratio 0.8 RATIO (0.9-2.4); AST(SGOT) 12 U/L (15-37); Alanine Aminotransfer ALT/SGPT 17 U/L (13-56); Albumin, Serum 3.5 g/dL (3.2-5.0); Alkaline Phosphatase 119 U/L (45-117); Anion Gap 7 (5-15); BUN 28 mg/dL (7-18); BUN/Creat Ratio 22.2 RATIO (10-20); Calcium,Total 9.7 mg/dL (8.5-10.1); Chloride 103 mmol/L (98-107); Creatinine, Serum 1.26 mg/dL (0.55-1.02); EST Glomerular Filtration Rate 43 mL/min (>60); Est Glom Filt Rate - Afr Amer 52 mL/min (>60); Estimated Creatinine Clearance 32.78 ml/min; Globulin 4.2 g/dL (2.2-4.2); Glucose 125 mg/dL (74-106); Lipase 51 U/L (13-75); Potassium 3.7 mmol/L (3.5-5.1); Protein, Total 7.7 g/dL (6.4-8.2); Sodium Level 139 mmol/L (136-145); Troponin-I HS 9 pg/mL (3.0-54.0)
[2023-07-30 16:35] LABS: BNP,B-Type NATRIURETIC PEPTIDE 24.6 pg/mL (0-100)
--- NOTE | 2023-07-30 17:10 | CT_ITS ---
STUDY: CTA CHEST REASON FOR EXAM: Female, 83 years old. Hypoxia RADIATION DOSAGE (If Supplied By Facility): CTDIvol = ( 12.06 ) mGy, DLP = ( 523.97 ) mGycm TECHNIQUE: The examination was performed with the intravenous administration of 100 cc Isovue-370. Post-processing of the angiographic images was performed, with multiplanar reformation and 3D reconstruction. Individualized dose optimization techniques were used for this CT. COMPARISON: 07/04/2023 FINDINGS: Normal enhancement of the main pulmonary artery and right and left pulmonary arteries. Normal enhancement of the bilateral peripheral pulmonary arteries. There is no demonstrated pulmonary embolism. Enlargement of the main pulmonary artery. Normal thoracic aorta and visualized great vessels. There is no demonstrated aortic dissection. Normal heart and pericardium. Normal mediastinum. Normal hilar regions. There are no pulmonary infiltrates. There are no pleural effusions. Normal chest wall structures. Normal osseous structures. No acute findings in the upper abdomen. Patent infrarenal abdominal aortic stent graft. Cholelithiasis. CT/CTA Chest W/WO Contrast IMPRESSION: No pulmonary emboli or aortic dissection. Changes of pulmonary hypertension. No acute pulmonary findings. Electronically Signed: Tino Rosales MD at 18:06 EDT ,
--- NOTE | 2023-07-30 18:30 | HP.PCM.HOS_ITS ---
HPI - General General Date of Admission: 07/30/23 Date of Service: 07/30/23 Chief Complaint: Abdominal pain, N/V, dyspnea. HPI Narrative The patient is an 83 y/o F w/ PMHx: Hx Uterine CA s/p radiation/resection, Chronic BL LE Lymphedema, BL LE Venous stasis disease, Obesity, HTN, HLD, Hx AAA s/p endovascular repair/stent, Hx COVID-19, recent 07/02/23 umbical hernai repair at [facility] per Dr. Enciso, recent discharge 07/07/23 following evaluation and treatment of acute hypoxic respiratory failure with unremarkable CTPA felt potentially related to severe atelectasis following her recent surgery with associated NSTEMI secondary to demand with ECHO w/ EF of 65% with indeterminate diastolic function and no regional motion abnormalities who now re-presents to the [facility] ED on 07/30/23 with history of onset of abdominal discomfort starting on Wednesday on week of presentation located in the epigastric to umbilicus with associated nausea and emesis described as sudden onset ranging from mild to severe with rolling episodes of worsening pain that then tami some although she does state that she has not had emesis since Wednesday and she is continued to have flatus until day of presentation and she notes she has not had any today with also noted last bowel movement on Wednesday with recent dyspnea primarily on exertion but no orthopnea. Work-up in the ED included T97.3, heart rate 78, BP 130/76, respiratory rate 17, 85 % on room air however transition to 3 L nasal cannula maintaining 95% oxygenation, CBC with WBC 7.5, hemoglobin 16, platelet 239 without marked shift, CMP with BUN/creatinine 28/1.26, glucose 125, alk phos 119 otherwise [place] profile not marked appearing, lipase 51, troponin 9, BNP 24.6, chest x-ray with no acute cardiopulmonary findings, EKG with sinus rhythm with no acute evidence of ischemia, CTPA with no acute pulmonary emboli or aortic dissection, changes of pulmonary hypertension with no acute cardiopu lmonary findings. In the ED patient ministered Zofran 4 mg IV x1, morphine 2 mg IV x1 as well as maintenance IV fluids. [facility] Medical History Bilateral lower extremity edema History of abdominal aortic aneurysm (AAA) History of COVID-19 History of skin cancer History of uterine cancer Hyperlipidemia Hypertension Intertriginous dermatitis associated with moisture Obesity Urinary incontinence, mixed Venous insufficiency of both lower extremities Home Medications amlodipine 5 mg tablet See Rx Instructions .Route .COMPLEX #90 TABLETS 07/19/23 [Rx Last Taken Unknown] Allergy/AdvReac Type Severity Reaction Status Date / Time rosuvastatin [From Crestor] Allergy Severe stomach Verified 07/30/23 15:20 pains shellfish derived Allergy Severe MOUTH SORES Verified 07/30/23 15:20 sulfamethoxazole Allergy Unknown unknown Verified 07/30/23 15:20 [From Bactrim] trimethoprim [From Bactrim] Allergy Unknown unknown Verified 07/30/23 15:20 Family History Son Alcoholism Grandmother No problems noted. Mother Heart disease Hypertension CVA (cerebral vascular accident) Father Cancer throat Surgical History History of hernia repair History of hysterectomy History of recent surgery Hx of endovascular stent graft for abdominal aortic aneurysm Social History Smoking Status: Never smoker alcohol intake: never substance use type: does not use what type of physical activity do you participate in: walking and aerobics ROS ROS Narrative Admission Review of Systems: CONSTITUTIONAL: No weight loss, fever, chills, + weakness or fatigue. HEENT: Eyes: No visual loss, blurred vision, double vision or yellow sclerae. Ears, Nose, Throat: No hearing loss, sneezing, congestion, runny nose or sore throat. SKIN: No rash or itching, lesions, wounds. CARDIOVASCULAR: No chest pain, chest pressure or chest discomfort, palpitations, edema, orthopnea, syncopal events. RESPIRATORY: + shortness of breath, No cough or sputum, wheezing, hemoptysis. GASTROINTESTINAL: + anorexia, abdominal discomfort, nausea, vomiting, constipation, lack of flatus x 24 hours. No melena, BRBPR. GENITOURINARY: No dysuria, frequency, urgency or retention. NEUROLOGICAL: No headache, dizziness, syncope, paralysis, ataxia, numbness or tingling in the extremities, focal weakness, change in bowel or bladder control, seizure. MUSCULOSKELETAL: + muscle, back pain, joint pain or stiffness. HEMATOLOGIC: No anemia, bleeding or bruising. LYMPHATICS: No enlarged nodes. No history of splenectomy. PSYCHIATRIC: No history of depression or anxiety. ENDOCRINOLOGIC: No reports of sweating, cold or heat intolerance. No polyuria or polydipsia. ALLERGIES: No history of asthma, hives, eczema or rhinitis. Vital Signs Vital Signs Vital Signs: 07/30/23 15:13 07/30/23 15:13 07/30/23 15:18 Temperature 97.3 F L Temperature Source Temporal Pulse Rate 78 Respiratory Rate 17 Respiratory Effort Normal Respiratory Pattern Normal Blood Pressure 130/76 H Blood Pressure Mean 94 Pulse Ox 85 93 Oxygen Delivery Method Room Air Nasal Cannula Oxygen Flow Rate (L/min) 3 07/30/23 15:21 07/30/23 16:26 07/30/23 16:26 Temperature 97.3 F L 98.3 F Temperature Source Temporal Temporal Pulse Rate 78 74 74 Respiratory Rate 17 25 H 25 H Respiratory Effort Respiratory Pattern Blood Pressure 130/76 H 119/68 119/68 Blood Pressure Mean 94 85 85 Pulse Ox 93 95 95 Oxygen Delivery Method Nasal Cannula Nasal Cannula Nasal Cannula Oxygen Flow Rate (L/min) 3 3 07/30/23 17:49 07/30/23 17:49 Temperature 97.2 F L Temperature Source Temporal Pulse Rate 68 68 Respiratory Rate 20 H 20 H Respiratory Effort Respiratory Pattern Blood Pressure 115/50 L 115/50 L Blood Pressure Mean 71 71 Pulse Ox 94 94 Oxygen Delivery Method Nasal Cannula Nasal Cannula Oxygen Flow Rate (L/min) 3 3 Weight Weight: 194 lb 3.636 oz Body Mass Index (BMI) 31.3 Physical Exam Narrative Physical Examination: General: Awake, alert, oriented x 3, appropriate mentation, notes ongoing abdominal discomfort, holding emesis bag, fatigued and ill appearing. Skin: Normal color, normal turgor, no icterus, no cyanosis except for occasional staged ecchymoses as well as recent abdominal hernia repair with incision intact, no drainage. HEENT: AT/NC, EOMI, PERRLA, dry MM, no carotid bruits or JVD noted. Lungs: Diminished, greater bases, no evidence of distress, no rales, ronchi or wheezing. Heart: Currently regular rate and rhythm; no gallop, rub audible. Abdomen: Soft, obese, primarily TTP RUQ and toward umbilicus but no rebound or guarding, incision well-appearing with no drainage, difficult to assess distention given habitus, BS in LUQ only and hypoactive BS otherwise, tympanitic, no obvious HSM however habitus makes evaluation difficult. Extremities: No cyanosis, no clubbing, mild peripheral edema but not markedly pitting, stable chronic. Neurological: Patient awake, alert, oriented as noted, cognitive function baseline intact; pupils equally reactive to light and accommodation, cranial nerves grossly normal, moving all 4 extremities, no focal deficits, strength severely global decrease secondary to acute presentation. Psychiatric: Affect appears flat, fatigued, ill appearing, no acute evidence of depressive or anxiety feelings. Results Lab / Micro Data 07/30/23 15:25 07/30/23 15:25 Labs: Laboratory Results - last 24 hr 07/30/23 15:25: WBC 7.5, RBC 5.23, Hgb 16.0 H, Hct 49.7 H, MCV 95.0, MCH 30.6, MCHC 32.2, RDW Std Deviation 51.2 H, RDW Coeff of Toribio 14.6, Plt Count 239, MPV 9.5, Immature Gran % (Auto) 0.300, Neut % (Auto) 72.1 H, Lymph % (Auto) 13.5 L, [place] % (Auto) 11.4 H, Eos % (Auto) 2.0, Baso % (Auto) 0.7, Absolute Neuts (auto) 5.4, Absolute Lymphs (auto) 1.01, Nucleated RBC % 0, Sodium 139, Potassium 3.7, Chloride 103, Carbon Dioxide 29.0, Anion Gap 7, BUN 28 H, Creatinine 1.26 H, Estim Creat Clear Calc 32.78, Est GFR (MDRD) Af Amer 52 L, Est GFR (MDRD) Non-Af 43 L, BUN/Creatinine Ratio 22.2 H, Glucose 125 H, Calcium 9.7, Total Bilirubin 0.70, AST 12 L, ALT 17, Alkaline Phosphatase 119 H, Troponin I High Sens 9, B- Natriuretic Peptide 24.6, Total Protein 7.7, Albumin 3.5, Globulin 4.2, Albumin/Globulin Ratio 0.8 L, Lipase 51 Radiology Impression Chest X-Ray 07/30/23 15:43 IMPRESSION: No radiographic evidence of acute cardiopulmonary disease. Electronically Signed: Jahaira Chaney MD at 16:28 EDT , Chest CTA 07/30/23 17:10 IMPRESSION: No pulmonary emboli or aortic dissection. Changes of pulmonary hypertension. No acute pulmonary findings. Electronically Signed: Tino Rosales MD at 18:06 EDT , Assessment & Plan Assessment/Plan (1) Abdominal pain of unknown etiology: PLAN: Plan The patient is an 83 y/o F w/ PMHx: Hx Uterine CA s/p radiation/resection, Chronic BL LE Lymphedema, BL LE Venous stasis disease, Obesity, HTN, HLD, Hx AAA s/p endovascular repair/stent, Hx COVID-19, recent 07/02/23 umbical hernai repair at [facility] per Dr. Enciso, recent discharge 07/07/23 following evaluation and treatment of acute hypoxic respiratory failure with unremarkable CTPA felt potentially related to severe atelectasis following her recent surgery with associated NSTEMI secondary to demand with ECHO w/ EF of 65% with indeterminate diastolic function and no regional motion abnormalities who now re-presents to the [facility] ED on 07/30/23 with history of onset of abdominal discomfort starting on Wednesday on week of presentation located in the epigastric to umbilicus with associated nausea and emesis described as sudden onset ranging from mild to severe with rolling episodes of worsening pain that then tami some although she does state that she has not had emesis since Wednesday and she is continued to have flatus with a last bowel movement on Wednesday with recent dyspnea primarily on exertion but no orthopnea. #1. Acute Hypoxia, Unclear etiology (Acute Respiratory Failure noted per ED ruled out): CXR without acute findings, recent ECHO without marked findings given NSTEMI, will obtain COVID PCR and respiratory viral panel, CrCl > 30 at this time, CTPA as noted upon ED work-up not marked appearing, given recent abdominal complaints with abdominal pain/N/V following recent operative intervention will obtain CT of the abdomen to be cautious but certainly aspiration event could have occurred, will maintain on aspiration precautions, head of bed, hold oral intake until sure no aspiration ongoing, as needed antiemetic, continue on IV fluids, IV PPI while NPO, procalcitonin pending, repeat CXR in AM. #2. Abdominal pain with intractable nausea and emesis with recent umbilical hernia repair: Previous presentation to the ED with CT with expected findings per discussion with Dr. Enciso, given current presentation will obtain repeat CT imaging of the abdomen as noted above #1 but will be without contrast as recently dosed with CTPA, will maintain NPO status until assure no intra- abdominal concerning findings such as bowel obstruction or postoperative infection, maintain on IVFs, IV PPI pending results. #3. Recent admission with NSTEMI: Treated initially with heparin drip with eventual de-escalation, will maintain on aspirin, noted statin allergy, not on beta-kathryn therapy nor ANEUDY inhibitor per cardiology discretion who evaluated patient 06/15/2023 following NSTEMI admission diagnosis, echocardiogram 07/04/2023 with EF 65% with indeterminate diastolic function. Admission presentation EKG without acute findings, CTPA without acute findings, troponin 9, BNP 24.6. #4. Recent admission with Incidentally noted nodular density left breast: Noted on prior admission CTPA, encourage outpatient nonemergent mammography. #6. Chronic Kidney Disease Stage III, unclear subtype: Admission BUN/Cr 28/1.26, baseline renal function 0.9-1.1, repeat BMP in AM. #7. Chronic bilateral lower extremity lymphedema: History noted per patient, no marked on evaluation, will place snug Aneudy wraps with elevation given patient concerns. #8. Obesity: Weight loss and lifestyle changes encouraged. #9. Hypertension: Continue home regimen including amlodipine, PRN hydralazine. #10. Hyperlipidemia: Not on statin therapy with intolerance noted, recent FLP with NSTEMI presentation. #11. History AAA: Status post endovascular stent, will continue aspirin, not on statin secondary to intolerance, hypertensive regimen as noted. #12. Hx Uterine CA: s/p radiation/resection, considered in remission. #13. DVT prophylaxis: Lovenox. #14. CODE status: Patient SHUBHAM is her daughter and also son, living will is currently in place. Full Code status. Charges/Coding Visit Charges Inpatient E&M: 39024 Init Hosp L3
[2023-07-30] MEDS: Morphine 2 MG/ML Syringe IV (18:48)
--- NOTE | 2023-07-30 18:58 | CT_ITS ---
INDICATION: Abdominal pain, N/V, recent OR EXAMINATION: CT ABDOMEN AND PELVIS WITHOUT CONTRAST - CT Abdomen And Pelvis W/O Contrast Injection TECHNIQUE: Helically acquired images were obtained of the abdomen and pelvis without oral or IV contrast. A radiation dose optimization technique was used for this scan. IV Contrast dosage and agent: None. Oral contrast: None. COMPARISON: None. FINDINGS: LOWER CHEST: Bibasilar dependent and/or fibrotic changes. No cardiomegaly or pericardial effusion. LIVER: Homogeneous. No focal mass. GALLBLADDER AND BILIARY TREE: Calcified gallstones. No gallbladder distension or wall edema. No intra- or extrahepatic biliary ductal dilation. PANCREAS: No focal cystic or solid mass. SPLEEN: Normal size without focal cystic or solid mass. ADRENAL GLANDS: No nodules. KIDNEYS AND URETERS: Normal renal size and position. No hydronephrosis. PERITONEUM: No ascites or free air. BOWEL: Normal appendix. Distended stomach and proximal small bowel, small bowel loops up to 4.8 cm. Transition to decompressed small bowel in the right lower quadrant. No pneumatosis identified. Colonic diverticulosis without focal inflammatory bowel wall changes. LYMPH NODES: No enlarged mesenteric or retroperitoneal lymph nodes. VESSELS: Stable aorto-biiliac graft. URINARY BLADDER: Unremarkable. REPRODUCTIVE ORGANS: Uterus absent. ABDOMINAL WALL: Surgical changes left groin. Interval near total resolution of inflammatory changes supraumbilical ventral abdominal wall. BONES: No acute or aggressive abnormality. CT/Abdomen/Pelvis without Cont IMPRESSION: Small bowel obstruction with transition in the right lower quadrant. Near-total resolution of ventral abdominal wall inflammatory changes since prior study. Cholelithiasis. Electronically Signed: Tino Rosales MD at 20:51 EDT ,
[2023-07-30] MEDS: 0.9% Normal Saline (1000mL) 1,000 ML 100 ML IV (20:55)
[2023-07-30] MEDS: proCHLORPERazine 10 MG/2 ML Vial 5 MG IV (20:55)
[2023-07-30 21:21] LABS: Procalcitonin < 0.04 ng/mL (0.00-0.09)
[2023-07-30] MEDS: Miconazole Nitrate 43 GM Bottle 1 APPLIC TOPICAL (21:52)
[2023-07-30] MEDS: Pantoprazole Sodium 40 MG in 0.9% Normal Saline (100mL MB+) 100 ML 330 MG IV (21:52)
[2023-07-31 02:20] VITALS: BP 115/67; PULSE 72; RESP 16; TEMP 36.6; O2SAT 94
[2023-07-31 06:00] VITALS: BMI 33.2
[2023-07-31 06:14] LABS: Absolute Lymphocyte Count 0.88 X10^3/uL (0.83-4.51); Absolute Neutrophil Count 4.4 X10^3/uL (2.0-7.7); Basophil# 0.03 X10^3/uL; Basophil% 0.5 % (0-1); Eosinophil# 0.27 X10^3/uL; Eosinophils% 4.2 % (0-5); Hematocrit 42.1 % (37-47); Hemoglobin 13.3 g/dL (12.0-15.0); Lymphocyte # 0.88 X10^3/ul (0.83-4.51); Lymphocyte % 13.7 % (19-41); Mean Corp Hgb Conc 31.6 g/dL (32-36); Mean Corpuscular Hgb 30.6 pg (27.0-32.0); Mean Corpuscular Volume 96.8 fL (81-99); Mean Platelet Vol. 9.1 fl (6.2-12.0); Monocyte# 0.89 X10^3/uL; Monocyte% 13.8 % (0-10); NRBC Flagged by Analyzer 0 % (0-5); Neutrophil # 4.36 X10^3/uL (2.7-7.7); Neutrophil % 67.6 % (47-70); Platelet Count 173 K/mm3 (150-450); RBC Distribution Width CV 14.6 % (11.6-14.6); RBC Distribution Width SD 52.1 fl (35.1-43.9); Red Blood Count 4.35 M/mm3 (4.2-5.4); White Blood Count 6.4 K/mm3 (4.4-11.0)
[2023-07-31] MEDS: 0.9% Normal Saline (1000mL) 1,000 ML 100 ML IV (06:47)
[2023-07-31 07:05] LABS: ALB/GLOB Ratio 0.8 RATIO (0.9-2.4); AST(SGOT) 6 U/L (15-37); Alanine Aminotransfer ALT/SGPT 13 U/L (13-56); Albumin, Serum 2.6 g/dL (3.2-5.0); Alkaline Phosphatase 88 U/L (45-117); Anion Gap 3 (5-15); BUN 21 mg/dL (7-18); BUN/Creat Ratio 20.8 RATIO (10-20); Calcium,Total 8.4 mg/dL (8.5-10.1); Chloride 112 mmol/L (98-107); Creatinine, Serum 1.01 mg/dL (0.55-1.02); EST Glomerular Filtration Rate 56 mL/min (>60); Est Glom Filt Rate - Afr Amer 68 mL/min (>60); Estimated Creatinine Clearance 37.72 ml/min; Globulin 3.3 g/dL (2.2-4.2); Glucose 92 mg/dL (74-106); Potassium 3.8 mmol/L (3.5-5.1); Protein, Total 5.9 g/dL (6.4-8.2); Sodium Level 143 mmol/L (136-145)
[2023-07-31 07:20] VITALS: O2SAT 94
[2023-07-31 09:50] VITALS: BP 115/43; PULSE 65; RESP 16; TEMP 36.8; O2SAT 92
[2023-07-31] MEDS: Pantoprazole Sodium 40 MG in 0.9% Normal Saline (100mL MB+) 100 ML 330 MG IV ×2 (10:05→21:06)
--- NOTE | 2023-07-31 10:56 | RAD_ITS ---
Small bowel series Indication: Small bowel obstruction Small bowel serial films performed following ingestion of Gastrografin. Aortobiiliac stent graft with surgical trino noted. There is dilation of the proximal small bowel/jejunum but passage of contrast into the colon is documented on the 6 hour image. 4 overhead images. No fluoroscopy time. RAD/Small Bowel Series Only IMPRESSION: Successful Gastrografin challenge. Documented colonic contrast at 6 hours. Electronically Signed: Asaf Demarco MD (Brooks) at 18:51 EDT ,
--- NOTE | 2023-07-31 10:57 | CON.PCM.SX_ITS ---
Assessment & Plan Assessment/Plan (1) Small bowel obstruction: PLAN: Patient 83-year-old female who is approximately 4 weeks status post redo umbilical hernia repair at [facility] who yesterday exhibited signs and symptoms of a small bowel obstruction, however, today appears spontaneously improved with no further abdominal pain, distention, or nausea. Based on these clinical improvements I am inclined to forego any placement of a nasogastric tube and have suggested that we simply perform a small bowel follow-through study with the patient drinking the contrast for the study. Mrs. Johnson expresses understanding of this rationale and is in agreement with the recommendation. If the contrast passes in another obstructive fashion would plan to advance her diet as tolerated. If she becomes nauseous during this. Would recommend placement of a nasogastric tube. During the study recommended to patient that she stay is upright and out of bed as possible. I have also recommended she consider ambulating and trialing some hard candy. Will follow- up the study as it is completed. (2) Abdominal pain of unknown etiology: HPI Consult Data Date of Consult: 07/31/23 HPI Narrative Reason for Consultation: Small bowel obstruction HPI Narrative: ELA JOHNSON, is a 83 F who presented to [facility] yesterday, 07/30/2023, with complaints of upper abdominal discomfort and associated nausea and vomiting. She recently underwent repeat umbilical hernia repair with Dr. Enciso through [facility] on 07/02/2023 and was ultimately discharged on 07/07/2023. She notes that there was a postoperative complication secondary to her intolerance of the prescribed OxyContin and she became unresponsive following ingestion of this medication occasioning a return to the hospital. She then reports that 6 days ago she began with some vomiting. On 07/28/2023 she states that this vomiting turned to a bilious character. The following day she states that she thought she was in the clear but then yesterday her vomiting returned along with significant upper abdominal pain. Patient denies ever making Dr. Enciso aware of the preceding events and simply elected to present to the ER yesterday. Beyond a work-up for some relative hypoxia, patient's ER work-up was notable for a CT of the abdomen pelvis that showed a transition of the small bowel within the right lower quadrant of the abdomen. They also noted resolution of inflammatory changes that had been evident on a postoperative CT scan from 07/04/2023. Today Mrs. Johnson shares that her abdominal pain is gone following some pain medication in the ER yesterday and she denies any nausea. In fact, she reports an appetite and some thirst. She also confirms that her abdominal distention is improved. Patient's surgical history includes umbilical hernia repairs on 07/02/2023 and 08/10/2022. She also has a history of uterine cancer status post hysterectomy in 2009. In between he states she underwent a EVAR repair of a abdominal aortic aneurysm in 2019. She states this procedure was complicated by postoperative infections which required reexploration of her femoral artery access sites. [facility] Medical History Bilateral lower extremity edema History of abdominal aortic aneurysm (AAA) History of COVID-19 History of skin cancer History of uterine cancer Hyperlipidemia Hypertension Intertriginous dermatitis associated with moisture Obesity Urinary incontinence, mixed Venous insufficiency of both lower extremities Home Medications amlodipine 5 mg tablet See Rx Instructions .Route .COMPLEX #90 TABLETS 07/19/23 [Rx Last Taken Unknown] Allergy/AdvReac Type Severity Reaction Status Date / Time rosuvastatin [From Crestor] Allergy Severe stomach Verified 07/30/23 15:20 pains shellfish derived Allergy Severe MOUTH SORES Verified 07/30/23 15:20 sulfamethoxazole Allergy Unknown unknown Verified 07/30/23 15:20 [From Bactrim] trimethoprim [From Bactrim] Allergy Unknown unknown Verified 07/30/23 15:20 Family History Son Alcoholism Grandmother No problems noted. Mother Heart disease Hypertension CVA (cerebral vascular accident) Father Cancer throat Surgical History History of hernia repair History of hysterectomy History of recent surgery Hx of endovascular stent graft for abdominal aortic aneurysm Social History Smoking Status: Never smoker alcohol intake: never substance use type: does not use what type of physical activity do you participate in: walking and aerobics Physical Exam Const alert, oriented x3 and no apparent distress General Appearance: cooperative Resp normal respiratory effort GI GI Narrative: Nondistended, operative Steri-Strips intact but incision well-healed beneath over umbilicus. There is no leigh-incisional erythema or drainage. Patient's abdomen is soft and nontender to palpation. Lab / Micro Data 07/31/23 05:03 07/31/23 05:03 Labs: Laboratory Results - last 24 hr 07/30/23 15:25: WBC 7.5, RBC 5.23, Hgb 16.0 H, Hct 49.7 H, MCV 95.0, MCH 30.6, MCHC 32.2, RDW Std Deviation 51.2 H, RDW Coeff of Toribio 14.6, Plt Count 239, MPV 9.5, Immature Gran % (Auto) 0.300, Neut % (Auto) 72.1 H, Lymph % (Auto) 13.5 L, [place] % (Auto) 11.4 H, Eos % (Auto) 2.0, Baso % (Auto) 0.7, Absolute Neuts (auto) 5.4, Absolute Lymphs (auto) 1.01, Nucleated RBC % 0, Sodium 139, Potassium 3.7, Chloride 103, Carbon Dioxide 29.0, Anion Gap 7, BUN 28 H, Creatinine 1.26 H, Estim Creat Clear Calc 32.78, Est GFR (MDRD) Af Amer 52 L, Est GFR (MDRD) Non-Af 43 L, BUN/Creatinine Ratio 22.2 H, Glucose 125 H, Calcium 9.7, Total Bilirubin 0.70, AST 12 L, ALT 17, Alkaline Phosphatase 119 H, Troponin I High Sens 9, B- Natriuretic Peptide 24.6, Total Protein 7.7, Albumin 3.5, Globulin 4.2, Albumin/Globulin Ratio 0.8 L, Lipase 51 07/30/23 20:28: Procalcitonin < 0.04 07/31/23 05:03: WBC 6.4, RBC 4.35, Hgb 13.3, Hct 42.1, MCV 96.8, MCH 30.6, MCHC 31.6 L, RDW Std Deviation 52.1 H, RDW Coeff of Toribio 14.6, Plt Count 173, MPV 9.1, Immature Gran % (Auto) 0.200, Neut % (Auto) 67.6, Lymph % (Auto) 13.7 L, [place] % (Auto) 13.8 H, Eos % (Auto) 4.2, Baso % (Auto) 0.5, Absolute Neuts (auto) 4.4, Absolute Lymphs (auto) 0.88, Nucleated RBC % 0, Sodium 143, Potassium 3.8, Chloride 112 H, Carbon Dioxide 28.0, Anion Gap 3 L, BUN 21 H, Creatinine 1.01, Estim Creat Clear Calc 37.72, Est GFR (MDRD) Af Amer 68, Est GFR (MDRD) Non-Af 56 L, BUN/Creatinine Ratio 20.8 H, Glucose 92, Calcium 8.4 L, Total Bilirubin 0.60, AST 6 L, ALT 13, Alkaline Phosphatase 88, Total Protein 5.9 L, Albumin 2.6 L, Globulin 3.3, Albumin/Globulin Ratio 0.8 L Micro: Microbiology 07/30/23 20:40 Mucosa - Nasopharyngeal Respiratory Panel (PCR) - Final 07/30/23 18:54 Mucosa - Nasopharyngeal Coronavirus COVID-19 PCR - Final Radiology Impression Chest X-Ray 07/30/23 15:43 IMPRESSION: No radiographic evidence of acute cardiopulmonary disease. Electronically Signed: Jahaira Chaney MD at 16:28 EDT , Chest CTA 07/30/23 17:10 IMPRESSION: No pulmonary emboli or aortic dissection. Changes of pulmonary hypertension. No acute pulmonary findings. Electronically Signed: Tino Rosales MD at 18:06 EDT , Abdomen/Pelvis CT 07/30/23 18:58 IMPRESSION: Small bowel obstruction with transition in the right lower quadrant. Near-total resolution of ventral abdominal wall inflammatory changes since prior study. Cholelithiasis. Electronically Signed: Tino Rosales MD at 20:51 EDT , Charges/Coding Visit Charges Inpatient E&M: 57774 Init Hosp L2
--- NOTE | 2023-07-31 13:05 | CASEMGMT ---
RN CM Face to Face with patient for initial transition planning/care coordination assessment. RN CM introduced self and role at [facility]. Patient lying in bed, alert and oriented, family at beside. Patient willing to participate in assessment and is able to answer all questions appropriately. Care providers, pharmacy, and demographics verified. Patient wishes to discharge home, will monitor progress with therapy. Patient states she has no further needs or concerns at this time. CM to follow for discharge planning needs that may arise. PCP: Ann Specialists: none Preferred Pharmacy: [facility] Insurance: [employer] Prescription Benefit: yes Living Will/HPOA: yes, son Gerry Hansen LNOK: son, daughter Living Arrangements: Patient lives alone in a first floor apartment, no steps to enter. Patient is independent at home. Transportation: daughter DME/HHC: Patient has grab bars and walker at home. Will montior for home oxygen, prefers [employer]. Patient has previously been to [facility] and had W home therapy. Disposition Plan: Patient to discharge home with family support and follow-up plans in place. Will monitor progress with therapy. Estella BRIDGES, RN, CM
--- NOTE | 2023-07-31 13:43 | NURSING ---
Pt walked in the zuniga at this time one and a half laps around the unit with this RN assistance. pt in bathroom, feels urge to have a BM.
--- NOTE | 2023-07-31 14:15 | PN_ITS ---
Subjective Subjective Patient seen and examined. She was admitted with a complaint of nausea and vomiting. She is being managed for small bowel obstruction. She has no complaints today. Abdominal pain has improved. She still has not passed gas. She denies any nausea vomiting overnight. Review systems otherwise negative. Objective Data Objective Data Vital Signs: Vital Signs Temp Pulse Resp BP Pulse Ox O2 Del Method O2 Flow Rate 98 F 72 16 115/67 94 Nasal Cannula 3 07/31/23 02:20 07/31/23 02:20 07/31/23 02:20 07/31/23 02:20 07/31/23 07:20 07/31/23 09:41 07/31/23 09:41 Oxygen Flow Rate (L/min) 3 Oxygen Delivery Method Nasal Cannula Weight: 193 lb 5.526 oz Body Mass Index (BMI) 33.2 Intake & Output: Intake and Output for Last 24 Hours 07/29/23 07/30/23 07/31/23 23:59 23:59 23:59 Intake Total 1022.5 / 1022.5 1436.67 / 1436.67 Balance 1022.5 / 1022.5 1436.67 / 1436.67 Lab / Micro Data 07/31/23 05:03 07/31/23 05:03 Labs: Laboratory Results - last 24 hr 07/30/23 15:25: WBC 7.5, RBC 5.23, Hgb 16.0 H, Hct 49.7 H, MCV 95.0, MCH 30.6, MCHC 32.2, RDW Std Deviation 51.2 H, RDW Coeff of Toribio 14.6, Plt Count 239, MPV 9.5, Immature Gran % (Auto) 0.300, Neut % (Auto) 72.1 H, Lymph % (Auto) 13.5 L, [place] % (Auto) 11.4 H, Eos % (Auto) 2.0, Baso % (Auto) 0.7, Absolute Neuts (auto) 5.4, Absolute Lymphs (auto) 1.01, Nucleated RBC % 0, Sodium 139, Potassium 3.7, Chloride 103, Carbon Dioxide 29.0, Anion Gap 7, BUN 28 H, Creatinine 1.26 H, Estim Creat Clear Calc 32.78, Est GFR (MDRD) Af Amer 52 L, Est GFR (MDRD) Non-Af 43 L, BUN/Creatinine Ratio 22.2 H, Glucose 125 H, Calcium 9.7, Total Bilirubin 0.70, AST 12 L, ALT 17, Alkaline Phosphatase 119 H, Troponin I High Sens 9, B- Natriuretic Peptide 24.6, Total Protein 7.7, Albumin 3.5, Globulin 4.2, Albumin/Globulin Ratio 0.8 L, Lipase 51 07/30/23 20:28: Procalcitonin < 0.04 07/31/23 05:03: WBC 6.4, RBC 4.35, Hgb 13.3, Hct 42.1, MCV 96.8, MCH 30.6, MCHC 31.6 L, RDW Std Deviation 52.1 H, RDW Coeff of Toribio 14.6, Plt Count 173, MPV 9.1, Immature Gran % (Auto) 0.200, Neut % (Auto) 67.6, Lymph % (Auto) 13.7 L, [place] % (Auto) 13.8 H, Eos % (Auto) 4.2, Baso % (Auto) 0.5, Absolute Neuts (auto) 4.4, Absolute Lymphs (auto) 0.88, Nucleated RBC % 0, Sodium 143, Potassium 3.8, Chloride 112 H, Carbon Dioxide 28.0, Anion Gap 3 L, BUN 21 H, Creatinine 1.01, Estim Creat Clear Calc 37.72, Est GFR (MDRD) Af Amer 68, Est GFR (MDRD) Non-Af 56 L, BUN/Creatinine Ratio 20.8 H, Glucose 92, Calcium 8.4 L, Total Bilirubin 0.60, AST 6 L, ALT 13, Alkaline Phosphatase 88, Total Protein 5.9 L, Albumin 2.6 L, Globulin 3.3, Albumin/Globulin Ratio 0.8 L Micro: Microbiology 07/30/23 20:40 Mucosa - Nasopharyngeal Respiratory Panel (PCR) - Final 07/30/23 18:54 Mucosa - Nasopharyngeal Coronavirus COVID-19 PCR - Final Radiography Diagnostic Testing: Radiology Impression Chest X-Ray 07/30/23 15:43 IMPRESSION: No radiographic evidence of acute cardiopulmonary disease. Electronically Signed: Jahaira Chaney MD at 16:28 EDT , Chest CTA 07/30/23 17:10 IMPRESSION: No pulmonary emboli or aortic dissection. Changes of pulmonary hypertension. No acute pulmonary findings. Electronically Signed: Tino Rosales MD at 18:06 EDT , Abdomen/Pelvis CT 07/30/23 18:58 IMPRESSION: Small bowel obstruction with transition in the right lower quadrant. Near-total resolution of ventral abdominal wall inflammatory changes since prior study. Cholelithiasis. Electronically Signed: Tino Rosales MD at 20:51 EDT Reading Location ID and State: [facility] / [place] Tel , Service support , Physical Exam Const alert, oriented x3 and no apparent distress General Appearance: cooperative HEENT normocephalic, head/scalp atraumatic and moist oral mucous membranes Eyes PERRL and EOMs intact bilaterally Neck no lymphadenopathy and supple Lymph Lymphatic: no lymphadenopathy noted and no lymphedema noted Resp normal respiratory effort, normal air movement and clear to auscultation bilaterally Cardio regular rate, regular rhythm, S1 normal heart sound, S2 normal heart sound and no murmurs GI soft to palpation, non-tender and non-distended GI Narrative: few bowel sounds auscultated. Abdomen nondistended Extremity normal capillary refill and no clubbing, cyanosis or edema General Extremity: no tenderness to palpation of joints or extremities Skin General Skin Exam: no breakdown Neuro CN's II-XII intact bilaterally, no focal motor deficits and no sensory deficits noted Motor Exam: strength 5/5 throughout and general weakness Psych thought process normal and cooperative Appearance: appropriate Assessment & Plan Assessment/Plan (1) Small bowel obstruction: PLAN: Plan #Small bowel obstruction * as per CT scan finding which showed small bowel obstruction with transition in the right lower quadrant. * Patient is currently NPO. Being hydrated gently with IV fluids. Currently not having nausea and vomiting and abdomen is not distended so no need to pass NG tube now. * General surgery consulted. Small bowel follow-through ordered and results pending. * Continue gentle hydration with IV fluids * #Hypoxia: resolved. COVID test negative. CTA chest negative for any evidnce of PE. Will monitor. Breathing treatment with bronchodilators. Titrate oxygen to maintain sats >90% #CAD * Recently admitted for non-STEMI. On aspirin. Not on statin due to allergy. Not on beta-kathryn or YUSEF inhibitor per cardiology discretion. * 2D echo for 07/04/2023 showed EF of 65% with indeterminate diastolic function. * #REcent umbilical hernia repair * Had umbilical hernia repair done at [facility] by Dr. Enciso in June 2023. Stable. No evidence of infection in the surgical site per CAT scan. * #Hypertension: On amlodipine. IV hydralazine as needed. #Nodular density of left breast: has been CTA imaging. Follow-up with PCP on outpatient basis for mammography to be scheduled as deemed appropriate as she is past the age for routine screening. #History of abdominal aortic aneurysm: S/p stenting. On aspirin. #History of uterine cancer: S/p radiation and resection: In remission DVT prophylaxis: Lovenox Charges/Coding Visit Charges Inpatient E&M: 71445 Subs Hosp L2
--- NOTE | 2023-07-31 14:58 | CASEMGMT ---
Social Work SW let pt know that her LW/POA are not on file. Pt did confirm that Elsa Thomason is her POA, and she will let her know to bring in the documents. ONEAL Hammonds
[2023-07-31 17:12] VITALS: O2SAT 99
[2023-07-31 17:18] VITALS: BP 121/61; PULSE 72; RESP 18; TEMP 36.4; O2SAT 99
[2023-07-31 21:29] VITALS: BP 95/56; PULSE 66; RESP 18; TEMP 36.4; O2SAT 97
[2023-08-01] MEDS: 0.9% Normal Saline (1000mL) 1,000 ML 100 ML IV (00:45)
[2023-08-01 03:00] VITALS: BP 101/54; PULSE 66; RESP 16; TEMP 36.4; O2SAT 95
[2023-08-01 05:16] LABS: Absolute Lymphocyte Count 0.88 X10^3/uL (0.83-4.51); Absolute Neutrophil Count 3.7 X10^3/uL (2.0-7.7); Basophil# 0.04 X10^3/uL; Basophil% 0.7 % (0-1); Eosinophils% 5.4 % (0-5); Hematocrit 45.3 % (37-47); Hemoglobin 13.6 g/dL (12.0-15.0); Lymphocyte # 0.88 X10^3/ul (0.83-4.51); Lymphocyte % 15.7 % (19-41); Mean Corpuscular Hgb 30.6 pg (27.0-32.0); Mean Corpuscular Volume 101.8 fL (81-99); Mean Platelet Vol. 9.9 fl (6.2-12.0); Monocyte# 0.66 X10^3/uL; Monocyte% 11.8 % (0-10); NRBC Flagged by Analyzer 0 % (0-5); Neutrophil # 3.69 X10^3/uL (2.7-7.7); Neutrophil % 65.9 % (47-70); Platelet Count 127 K/mm3 (150-450); RBC Distribution Width CV 14.9 % (11.6-14.6); RBC Distribution Width SD 56.2 fl (35.1-43.9); Red Blood Count 4.45 M/mm3 (4.2-5.4); White Blood Count 5.6 K/mm3 (4.4-11.0)
[2023-08-01 05:56] LABS: Anion Gap 3 (5-15); BUN 16 mg/dL (7-18); BUN/Creat Ratio 18.1 RATIO (10-20); Calcium,Total 8.1 mg/dL (8.5-10.1); Chloride 116 mmol/L (98-107); Creatinine, Serum 0.88 mg/dL (0.55-1.02); EST Glomerular Filtration Rate 65 mL/min (>60); Est Glom Filt Rate - Afr Amer 79 mL/min (>60); Glucose 78 mg/dL (74-106); Potassium 3.9 mmol/L (3.5-5.1); Sodium Level 144 mmol/L (136-145)
[2023-08-01 06:00] VITALS: BMI 33.6
[2023-08-01 08:20] VITALS: O2SAT 94
--- NOTE | 2023-08-01 09:12 | PN.SURG_ITS ---
Subjective Subjective Patient seen and examined during AM rounds. She is found sitting out of bed in a chair. She confirms that she had somewhere between 5 and 7 loose bowel movements yesterday. She tolerated her advancement to a clear liquid diet yesterday and states she is interested in more food today as she remains hungry. She does express some apprehension about returning to home with the frequency of her loose bowel movements. Objective Data Objective Data Vital Signs: Vital Signs Temp Pulse Resp BP Pulse Ox O2 Del Method O2 Flow Rate 97.6 F L 66 16 101/54 L 94 Nasal Cannula 3 08/01/23 03:00 08/01/23 03:00 08/01/23 03:00 08/01/23 03:00 08/01/23 08:20 08/01/23 08:20 08/01/23 08:20 Oxygen Flow Rate (L/min) 3 Oxygen Delivery Method Nasal Cannula Weight: 196 lb 13.965 oz Body Mass Index (BMI) 33.6 Intake & Output: Intake and Output for Last 24 Hours 07/30/23 07/31/23 08/01/23 23:59 23:59 23:59 Intake Total 1022.5 / 1022.5 1906.67 / 1906.67 655 / 655 Balance 1022.5 / 1022.5 1906.67 / 1906.67 655 / 655 Lab / Micro Data 08/01/23 04:39 08/01/23 04:39 Labs: Laboratory Results - last 24 hr 08/01/23 04:39: WBC 5.6, RBC 4.45, Hgb 13.6, Hct 45.3, MCV 101.8 H D, MCH 30.6, MCHC 30.0 L D, RDW Std Deviation 56.2 H, RDW Coeff of Toribio 14.9 H, Plt Count 127 L, MPV 9.9, Immature Gran % (Auto) 0.500, Neut % (Auto) 65.9, Lymph % (Auto) 15.7 L, [place] % (Auto) 11.8 H, Eos % (Auto) 5.4 H, Baso % (Auto) 0.7, Absolute Neuts (auto) 3.7, Absolute Lymphs (auto) 0.88, Nucleated RBC % 0, Sodium 144, Potassium 3.9, Chloride 116 H, Carbon Dioxide 25.0, Anion Gap 3 L, BUN 16, Creatinine 0.88, Estim Creat Clear Calc 43.30, Est GFR (MDRD) Af Amer 79, Est GFR (MDRD) Non-Af 65, BUN/Creatinine Ratio 18.1, Glucose 78, Calcium 8.1 L Micro: Microbiology 07/30/23 20:40 Mucosa - Nasopharyngeal Respiratory Panel (PCR) - Final 07/30/23 18:54 Mucosa - Nasopharyngeal Coronavirus COVID-19 PCR - Final Radiography Diagnostic Testing: Radiology Impression Small Bowel X-Ray 07/31/23 10:56 IMPRESSION: Successful Gastrografin challenge. Documented colonic contrast at 6 hours. Electronically Signed: Asaf Demarco MD ([place]) at 18:51 EDT , Physical Exam Const oriented x3 and no apparent distress Resp normal respiratory effort GI GI Narrative: Nondistended, soft, nontender to palpation x4 quadrants Assessment & Plan Assessment/Plan (1) Small bowel obstruction: PLAN: Patient 83-year-old female who is approximately 4 weeks status post redo umbilical hernia repair at [facility] who exhibited signs and symptoms of a small bowel obstruction, however, she appears to have resolved this spontaneously as confirmed with passage of a Gastrografin trial yesterday and tolerance of a diet advancement. Mrs. Hansen expresses an increased appetite today so we will advance her diet accordingly. If patient tolerates this diet advancement would further advance to a transitional diet and then she could be considered for discharge to home. Recommend outpatient follow-up with her surgeon, Dr. Enciso?at least verbally?so they are aware of this clinical update. (2) Abdominal pain of unknown etiology: Charges/Coding Visit Charges Inpatient E&M: 42568 Subs Hosp L2
[2023-08-01 09:20] VITALS: O2SAT 97
[2023-08-01 09:30] VITALS: BP 103/54; PULSE 64; RESP 18; TEMP 36.7; O2SAT 96
--- NOTE | 2023-08-01 09:40 | NURSING ---
Dr. Jones in to see pt. Said it was okay to Hep lock IV pt since there is a possibility to discharge her later today. pt wanted her IV taken completely out b/c it was bothering her. This RN educated why she should keep it in until pt leaves. Pt getting upset and does not care. REquested it be taken out. This nurse D/C'ed it but then Dr. Bahena came in and heard crackles to marlene bases Posteriorly and ordered to have pt have lasix iv. Pt at first refused to have the lasix but Dr. Bahena explained the significance of it. Pt reluentely agreed. After Dr. Bahena left, pt stated, guess she has to meet her lasix quota for the month. this RN educated that this was not true and that pt can refuse medication if she did not want it but that it was beneficial for pt to have it at this time. Pt did not say anything else.
--- NOTE | 2023-08-01 12:11 | NURSING ---
Despite more education, pt still remains against taking lasix for the crackles in her lungs. I talked to my daughter and she is in agreement with me that I do not have to take it. States her PCP told her her lungs were fine and it would take a month for her lungs to heal. This RN texted Dr. Bahena to let her know pt refused lasix.
--- NOTE | 2023-08-01 13:05 | PN_ITS ---
Subjective Subjective Patient seen and examined. She had been started on a diet and was feeling much better. She is however having diarrhea. Diet to be advanced as per general surgery. Review of systems is otherwise negative. Objective Data Objective Data Vital Signs: Vital Signs Temp Pulse Resp BP Pulse Ox O2 Del Method O2 Flow Rate 98.1 F 64 18 103/54 L 96 Room Air 3 08/01/23 09:30 08/01/23 09:30 08/01/23 09:30 08/01/23 09:30 08/01/23 09:30 08/01/23 09:30 08/01/23 08:20 Oxygen Flow Rate (L/min) 3 Oxygen Delivery Method Room Air Weight: 196 lb 13.965 oz Body Mass Index (BMI) 33.6 Intake & Output: Intake and Output for Last 24 Hours 07/30/23 07/31/23 08/01/23 23:59 23:59 23:59 Intake Total 1022.5 / 1022.5 1906.67 / 1906.67 1525 / 1525 Balance 1022.5 / 1022.5 1906.67 / 1906.67 1525 / 1525 Lab / Micro Data 08/01/23 04:39 08/01/23 04:39 Labs: Laboratory Results - last 24 hr 08/01/23 04:39: WBC 5.6, RBC 4.45, Hgb 13.6, Hct 45.3, MCV 101.8 H D, MCH 30.6, MCHC 30.0 L D, RDW Std Deviation 56.2 H, RDW Coeff of Toribio 14.9 H, Plt Count 127 L, MPV 9.9, Immature Gran % (Auto) 0.500, Neut % (Auto) 65.9, Lymph % (Auto) 15.7 L, [place] % (Auto) 11.8 H, Eos % (Auto) 5.4 H, Baso % (Auto) 0.7, Absolute Neuts (auto) 3.7, Absolute Lymphs (auto) 0.88, Nucleated RBC % 0, Sodium 144, Potassium 3.9, Chloride 116 H, Carbon Dioxide 25.0, Anion Gap 3 L, BUN 16, Creatinine 0.88, Estim Creat Clear Calc 43.30, Est GFR (MDRD) Af Amer 79, Est GFR (MDRD) Non-Af 65, BUN/Creatinine Ratio 18.1, Glucose 78, Calcium 8.1 L Micro: Microbiology 07/30/23 20:40 Mucosa - Nasopharyngeal Respiratory Panel (PCR) - Final 07/30/23 18:54 Mucosa - Nasopharyngeal Coronavirus COVID-19 PCR - Final Radiography Diagnostic Testing: Radiology Impression Small Bowel X-Ray 07/31/23 10:56 IMPRESSION: Successful Gastrografin challenge. Documented colonic contrast at 6 hours. Electronically Signed: Asaf Demarco MD ([place]) at 18:51 EDT , Physical Exam Const alert, oriented x3 and no apparent distress General Appearance: cooperative HEENT normocephalic, head/scalp atraumatic and moist oral mucous membranes Eyes PERRL and EOMs intact bilaterally Neck no lymphadenopathy and supple Lymph Lymphatic: no lymphadenopathy noted and no lymphedema noted Resp normal respiratory effort, normal air movement and clear to auscultation bilaterally Cardio regular rate, regular rhythm, S1 normal heart sound, S2 normal heart sound and no murmurs GI normal to inspection, nondistended, normoactive bowel sounds, soft to palpation, non-tender and non-distended Extremity normal capillary refill and no clubbing, cyanosis or edema General Extremity: no tenderness to palpation of joints or extremities Skin General Skin Exam: no breakdown Neuro CN's II-XII intact bilaterally, no focal motor deficits and no sensory deficits noted Motor Exam: strength 5/5 throughout and general weakness Psych thought process normal and cooperative Appearance: appropriate Assessment & Plan Assessment/Plan (1) Small bowel obstruction: PLAN: Plan #Small bowel obstruction * as per CT scan finding which showed small bowel obstruction with transition in the right lower quadrant. * now started on a clear liquid diet, and being advanced as per general surgery. * dc IVF. * * #Hypoxia: * resolved. COVID test negative. CTA chest negative for any evidnce of PE. * Breathing treatment with bronchodilators. Titrate oxygen to maintain sats >90% * did have some bilateral crackles today, so will give a dose of IV lasix 40mg x 1. This was ordered but pateint refused to take it. #CAD * Recently admitted for non-STEMI. On aspirin. Not on statin due to allergy. Not on beta-kathryn or YUSEF inhibitor per cardiology discretion. * 2D echo for 07/04/2023 showed EF of 65% with indeterminate diastolic function. * #REcent umbilical hernia repair * Had umbilical hernia repair done at [facility] by Dr. Enciso in June 2023. Stable. No evidence of infection in the surgical site per CAT scan. * #Hypertension: On amlodipine. IV hydralazine as needed. #Nodular density of left breast: has been CTA imaging. Follow-up with PCP on outpatient basis for mammography to be scheduled as deemed appropriate as she is past the age for routine screening. #History of abdominal aortic aneurysm: S/p stenting. On aspirin. #History of uterine cancer: S/p radiation and resection: In remission DVT prophylaxis: Lovenox Disposition: * patient prefers to be discharged tomorrow as she is currently having some loose stools and wants us to clear before she goes. * Also she says her daughter will be able to pick her up tomorrow so will be more ideal for her to be discharged tomorrow. Charges/Coding Visit Charges Inpatient E&M: 12587 Subs Hosp L2
[2023-08-01 18:07] VITALS: BP 125/64; PULSE 78; RESP 18; TEMP 36.5; O2SAT 94
[2023-08-01 23:13] VITALS: BP 123/53; PULSE 68; RESP 18; TEMP 36.4; O2SAT 93
[2023-08-02 05:22] VITALS: BP 136/57; PULSE 55; RESP 18; TEMP 36.6; O2SAT 94
[2023-08-02 05:42] VITALS: BMI 33.2
[2023-08-02 06:00] VITALS: BMI 24.9
[2023-08-02 06:02] LABS: Absolute Neutrophil Count 2.8 X10^3/uL (2.0-7.7); Basophil# 0.04 X10^3/uL; Basophil% 0.8 % (0-1); Eosinophil# 0.31 X10^3/uL; Eosinophils% 6.3 % (0-5); Hematocrit 44.6 % (37-47); Lymphocyte % 22.4 % (19-41); Mean Corp Hgb Conc 31.4 g/dL (32-36); Mean Corpuscular Hgb 30.5 pg (27.0-32.0); Mean Corpuscular Volume 97.2 fL (81-99); Mean Platelet Vol. 8.9 fl (6.2-12.0); Monocyte# 0.63 X10^3/uL; Monocyte% 12.8 % (0-10); NRBC Flagged by Analyzer 0 % (0-5); Neutrophil % 56.9 % (47-70); Platelet Count 169 K/mm3 (150-450); RBC Distribution Width CV 14.7 % (11.6-14.6); RBC Distribution Width SD 52.9 fl (35.1-43.9); Red Blood Count 4.59 M/mm3 (4.2-5.4); White Blood Count 4.9 K/mm3 (4.4-11.0)
[2023-08-02 06:30] LABS: Anion Gap 2 (5-15); BUN 14 mg/dL (7-18); BUN/Creat Ratio 15.7 RATIO (10-20); Calcium,Total 8.5 mg/dL (8.5-10.1); Chloride 110 mmol/L (98-107); Creatinine, Serum 0.89 mg/dL (0.55-1.02); EST Glomerular Filtration Rate 64 mL/min (>60); Est Glom Filt Rate - Afr Amer 78 mL/min (>60); Estimated Creatinine Clearance 42.81 ml/min; Glucose 92 mg/dL (74-106); Potassium 3.8 mmol/L (3.5-5.1); Sodium Level 141 mmol/L (136-145)
[2023-08-02 06:55] VITALS: O2SAT 94
--- NOTE | 2023-08-02 07:42 | PN.HOSP_ITS ---
Reason for Visit Reason for Visit: Diagnoses Unspecified intestinal obstruction, unspecified as to partial versus complete o bstruction (07/31/23) Unspecified abdominal pain (07/31/23) Subjective Subjective Feels good. Tolerating PO. Objective Data Objective Data Vital Signs: Vital Signs Temp Pulse Resp BP Pulse Ox O2 Del Method O2 Flow Rate 36.6 C 55 L 18 136/57 H 94 Room Air 3 08/02/23 05:22 08/02/23 05:22 08/02/23 05:22 08/02/23 05:22 08/02/23 06:55 08/02/23 06:55 08/01/23 08:20 Oxygen Flow Rate (L/min) 3 Oxygen Delivery Method Room Air Weight: 66.2 kg Body Mass Index (BMI) 24.9 Intake & Output: Intake and Output for Last 24 Hours 07/31/23 08/01/23 08/02/23 23:59 23:59 23:59 Intake Total 1906.67 / 1906.67 2285 / 2485 400 / 400 Balance 1906.67 / 1906.67 2285 / 2485 400 / 400 Lab / Micro Data 08/02/23 05:25 08/02/23 05:25 Labs: Laboratory Results - last 24 hr 08/02/23 05:25: WBC 4.9, RBC 4.59, Hgb 14.0, Hct 44.6, MCV 97.2, MCH 30.5, MCHC 31.4 L, RDW Std Deviation 52.9 H, RDW Coeff of Toribio 14.7 H, Plt Count 169, MPV 8.9, Immature Gran % (Auto) 0.800, Neut % (Auto) 56.9, Lymph % (Auto) 22.4, [place] % (Auto) 12.8 H, Eos % (Auto) 6.3 H, Baso % (Auto) 0.8, Absolute Neuts (auto) 2.8, Absolute Lymphs (auto) 1.10, Nucleated RBC % 0, Sodium 141, Potassium 3.8, Chloride 110 H, Carbon Dioxide 29.0, Anion Gap 2 L, BUN 14, Creatinine 0.89, Estim Creat Clear Calc 42.81, Est GFR (MDRD) Af Amer 78, Est GFR (MDRD) Non-Af 64, BUN/Creatinine Ratio 15.7, Glucose 92, Calcium 8.5 Micro: Microbiology 07/30/23 20:40 Mucosa - Nasopharyngeal Respiratory Panel (PCR) - Final 07/30/23 18:54 Mucosa - Nasopharyngeal Coronavirus COVID-19 PCR - Final Physical Exam Const alert and no apparent distress HEENT head/scalp atraumatic Assessment & Plan Assessment/Plan (1) Small bowel obstruction: PLAN: CT showed SBO w transition in RLQ. GS following Now on Transitional diet, low fiber diet (2) Hypoxia: PLAN: Transient Resolved May have been due to splinting from SBO PLAN: Plan Chronic conditions: * CAD Recently admitted for non-STEMI. On aspirin. Not on statin due to all ergy. Not on beta-kathryn or YUSEF inhibitor per cardiology discretion. 2D echo for 07/04/2023 showed EF of 65% with indeterminate diastolic function. * Recent umbilical hernia repair Had umbilical hernia repair done at [facility] by Dr. Enciso in June 2023. Stable. No evidence of infection in the surgical site per CAT scan. * Hypertension: On amlodipine. IV hydralazine as needed. * Nodular density of left breast: has been CTA imaging. Follow-up with PCP on outpatient basis for mammography to be scheduled as deemed appropriate as she is past the age for routine screening. * History of abdominal aortic aneurysm: S/p stenting. On aspirin. * History of uterine cancer: S/p radiation and resection: In remission DVT prophylaxis: Lovenox Disposition: * DC home.
[2023-08-02 08:13] VITALS: O2SAT 94
--- NOTE | 2023-08-02 08:43 | PCM.PN.SRG ---
Subjective Subjective Patient is an 83 y/o F I am following in conjunction with Dr. Jones. Patient seems to have improved greatly. She has been having flatus and bowel movements. She denies nausea with diet. She denies vomiting. She denies any abdominal pain or tenderness this morning. She is tolerating a low fiber diet. Objective Data Objective Data Vital Signs: Vital Signs Temp Pulse Resp BP Pulse Ox O2 Del Method O2 Flow Rate 97.8 F 55 L 18 136/57 H 94 Room Air 3 08/02/23 05:22 08/02/23 05:22 08/02/23 05:22 08/02/23 05:22 08/02/23 06:55 08/02/23 06:55 08/01/23 08:20 Oxygen Flow Rate (L/min) 3 Oxygen Delivery Method Room Air Weight: 145 lb 15.136 oz Body Mass Index (BMI) 24.9 Intake & Output: Intake and Output for Last 24 Hours 07/31/23 08/01/23 08/02/23 23:59 23:59 23:59 Intake Total 1906.67 / 1906.67 2285 / 2485 400 / 400 Balance 1906.67 / 1906.67 2285 / 2485 400 / 400 Lab / Micro Data 08/02/23 05:25 08/02/23 05:25 Labs: Laboratory Results - last 24 hr 08/02/23 05:25: WBC 4.9, RBC 4.59, Hgb 14.0, Hct 44.6, MCV 97.2, MCH 30.5, MCHC 31.4 L, RDW Std Deviation 52.9 H, RDW Coeff of Toribio 14.7 H, Plt Count 169, MPV 8.9, Immature Gran % (Auto) 0.800, Neut % (Auto) 56.9, Lymph % (Auto) 22.4, [place] % (Auto) 12.8 H, Eos % (Auto) 6.3 H, Baso % (Auto) 0.8, Absolute Neuts (auto) 2.8, Absolute Lymphs (auto) 1.10, Nucleated RBC % 0, Sodium 141, Potassium 3.8, Chloride 110 H, Carbon Dioxide 29.0, Anion Gap 2 L, BUN 14, Creatinine 0.89, Estim Creat Clear Calc 42.81, Est GFR (MDRD) Af Amer 78, Est GFR (MDRD) Non-Af 64, BUN/Creatinine Ratio 15.7, Glucose 92, Calcium 8.5 Micro: Microbiology 07/30/23 20:40 Mucosa - Nasopharyngeal Respiratory Panel (PCR) - Final 07/30/23 18:54 Mucosa - Nasopharyngeal Coronavirus COVID-19 PCR - Final Physical Exam GI normal to inspection, nondistended, normoactive bowel sounds Assessment & Plan Assessment/Plan (1) Small bowel obstruction: PLAN: Dr. Jones has also independently evaluated this patient Patient is tolerating regular, low fiber diet well She has had a return of bowel function without nausea or vomiting Recommend continuing low fiber diet for 2 additional weeks and slowly return to a regular diet following this Recommend a follow-up with her PCP Recommend contacting Dr. Enciso's office to update them on hospitalization and treatment that was completed Follow-up with our office as needed Patient is surgically ready for discharge Charges/Coding Visit Charges Inpatient E&M: 05078 Subs Hosp L1
[2023-08-02 10:55] VITALS: BP 104/60; PULSE 60; RESP 16; TEMP 36.4; O2SAT 96
--- NOTE | 2023-08-02 13:11 | DS.PCM_ITS ---
Providers Date of Admission: 07/31/23 Primary Care Physician: Dr. Mio Juarez MD Consultations 07/31/23 07:32 Consult: General Surgery Routine Consulting Provider: River Jones Reason for Consult: small bowel obstruction EMERGENT Consult: No MD Notified: Yes Date Notified: 07/31/23 Time Notified: 07:32 Method of Notification: Text Reason For Visit: N/V/ABD PAIN, HYPOXIA Diagnosis Discharge Diagnosis (1) Small bowel obstruction: Status: Acute Code(s): K56.609 - Unspecified intestinal obstruction, unspecified as to partial versus complete obstruction Plan: CT showed SBO w transition in RLQ. GS following Now on Transitional diet, low fiber diet (2) Hypoxia: Status: Resolved Code(s): R09.02 - Hypoxemia Plan: Transient Resolved May have been due to splinting from SBO Plan Chronic conditions: * CAD Recently admitted for non-STEMI. On aspirin. Not on statin due to allergy. Not on beta-kathryn or YUSEF inhibitor per cardiology discretion. 2D echo for 07/04/2023 showed EF of 65% with indeterminate diastolic function. * Recent umbilical hernia repair Had umbilical hernia repair done at [facility] by Dr. Enciso in June 2023. Stable. No evidence of infection in the surgical site per CAT scan. * Hypertension: On amlodipine. IV hydralazine as needed. * Nodular density of left breast: has been CTA imaging. Follow-up with PCP on outpatient basis for mammography to be scheduled as deemed appropriate as she is past the age for routine screening. * History of abdominal aortic aneurysm: S/p stenting. On aspirin. * History of uterine cancer: S/p radiation and resection: In remission DVT prophylaxis: Lovenox Disposition: * DC home. Medications at Discharge Home Medications amlodipine 5 mg tablet See Rx Instructions .Route .COMPLEX #90 TABLETS 07/19/23 Hospital Course Operations None Procedures None Summary of Care Provided Minutes Spent on Discharge: 32 Hospital Course: Patient developed a small bowel obstruction with transition point in right lower quadrant. Patient responded well with the conservative management and has been tolerating diet. Patient be discharged home today. Patient did have some transient hypoxia but work-up was unremarkable. [place] to be due to splinting from her small bowel obstruction. Weight / BMI Weight Weight: 66.2 kg Body Mass Index (BMI) 24.9 ABG / Lab / Microbiology Data 08/02/23 05:25 08/02/23 05:25 Laboratory: Laboratory Results - last 24 hr 08/02/23 05:25: WBC 4.9, RBC 4.59, Hgb 14.0, Hct 44.6, MCV 97.2, MCH 30.5, MCHC 31.4 L, RDW Std Deviation 52.9 H, RDW Coeff of Toribio 14.7 H, Plt Count 169, MPV 8.9, Immature Gran % (Auto) 0.800, Neut % (Auto) 56.9, Lymph % (Auto) 22.4, [place] % (Auto) 12.8 H, Eos % (Auto) 6.3 H, Baso % (Auto) 0.8, Absolute Neuts (auto) 2.8, Absolute Lymphs (auto) 1.10, Nucleated RBC % 0, Sodium 141, Potassium 3.8, Chloride 110 H, Carbon Dioxide 29.0, Anion Gap 2 L, BUN 14, Creatinine 0.89, Estim Creat Clear Calc 42.81, Est GFR (MDRD) Af Amer 78, Est GFR (MDRD) Non-Af 64, BUN/Creatinine Ratio 15.7, Glucose 92, Calcium 8.5 Microbiology: Microbiology 07/30/23 20:40 Mucosa - Nasopharyngeal Respiratory Panel (PCR) - Final 07/30/23 18:54 Mucosa - Nasopharyngeal Coronavirus COVID-19 PCR - Final D/C Instructions Discharge Diet: - (low fiber diet for 2 weeks, then slowly transition to a regular diet. ) Meaningful Use Info Meaningful Use Diagnoses (Choose all that apply): None applicable Discharge Plan Admission Admit Date/Time: 07/31/23 11:17 Primary Reason for Your Visit: Small bowel obstruction Attending Provider: Mukesh Waterman Primary Care Provider: Mio Juarez Consulting Providers: Dee Dee Jean; River Jones; Ashley Bahena Instructions Additional Instructions / Restrictions: What are low-fiber foods? If your doctor tells you to follow a low-fiber diet, here are?low-fiber foods you can eat and higher-fiber foods you should avoid. Remember to always choose foods that you would normally eat. Do not try any foods that caused you discomfort or allergic reactions in the past. If you are on a ?low-residue diet,? your food choices are even more restricted than those listed below. Talk with your cancer care team or dietitian if you have questions about certain foods or amounts. Meat, fish, poultry, and protein Eat * Tender cuts of meat * Ground meat * Tofu * Fish and shellfish * Smooth peanut butter * Eggs Bake, broil, or poach meats, and use mild seasonings. Try preparing meats as stews, roasts, meatloaves, casseroles, sandwiches, and soups using ingredients on the approved lists. Scramble, poach, or boil eggs; or make omelets, souffl?s, custard, puddings, and casseroles, using ingredients noted below. You might want to ask your doctor, nurse, or dietitian about other foods may be OK for you to eat, and find out when you can go back to your normal diet. Avoid * All beans, nuts, peas, lentils, and legumes * Processed meats, hot dogs, sausage, and cold cuts * Tough meats with gristle Dairy: Milk and cheese Eat Only in small to medium amounts and only if they don?t cause problems for you * Milk, chocolate milk, buttermilk, and milk drinks * Yogurt without seeds or granola * Sour cream * Cheese * Cottage cheese * Custard or pudding * Ice cream or frozen desserts (without nuts) * Cream sauces, soups, and casseroles You can use these items in desserts, snacks, or breads. Bread, cereals, and grains Eat * White breads, waffles, Jordanian toast, plain white rolls, or white bread toast * Pretzels * Plain pasta or noodles * White rice * Crackers, zwieback, marilyn, and matzoh (no cracked wheat or whole grains) * Cereals without whole grains, added fiber, seeds, raisins, or other dried fruit Use white flour for baking and making sauces. Grains, such as white rice, Cream of Wheat, or grits, should be well-cooked. Include the above grains in casseroles, dumplings, souffl?s, cheese strata, kugels, and pudding. Avoid any food that contains * Brown or wild rice * Whole grains, cracked grains, or whole wheat products * Kasha (buckwheat) * Cornbread or cornmeal * Checo crackers * Bran * Wheat germ * Nuts * Granola * Coconut * Dried fruit * Seeds Vegetables and potatoes Eat * Tender, well-cooked fresh or canned vegetables without seeds, stems, or skins * Cooked sweet or white potatoes without skins * Strained vegetable juices without pulp or spices You can also eat these with cream sauces, or in soups, souffl?s, kugels, and casseroles. Avoid * All raw or steamed vegetables * All types of beans * Potatoes with skin * Peas * [place] * Cabbage, broccoli, cauliflower, [place] sprouts, and greens * Sauerkraut * Onions Fruits and desserts Eat * Soft canned or cooked fruit without seeds or skins (small amounts) * Small amounts of well-ripened banana * Strained or clear juices * Small amounts of soft cantaloupe or honeydew melon * Cookies and other desserts without whole grains, dried fruit, berries, nuts, or coconut * Sherbet and popsicles Serving suggestions include gelatins, milk shakes, frozen desserts, puddings, tapioca, cakes, and sauces. Avoid * All raw or dried fruits * Berries * Prune juice, prunes, and raisins Other foods Eat * Mayonnaise and mild salad dressings * Margarine, butter, cream, and oils in small amounts * Plain gravies * Plain bouillon and broth * Ketchup and mild mustard * Spices, cooked herbs, and salt * Sugar, honey, and syrup * Clear jellies * Hard candy and marshmallows * Plain chocolate Avoid * Marmalade * Pickles, olives, relish, and horseradish * Popcorn * Potato chips Liquids Keep in mind that low-fiber foods cause fewer bowel movements and smaller stools. You may need to drink extra fluids to help prevent constipation while you are on a low-fiber diet. Drink plenty of water unless your doctor tells you otherwise, and use juices and milk as noted above. Discharge Orders/Prescriptions Prescriptions: Continued amlodipine 5 mg tablet See Rx Instructions .ROUTE .COMPLEX Qty: 90 3RF Dose Instruction: take 1 tablet by mouth once daily Rx Instructions: take 1 tablet by mouth once daily Referrals / Follow Up: Mendez Enciso MD [Med Staff - Active Staff] - Within 3 Months Mio Juarez MD [Primary Care Provider] - Within 2 Weeks Disposition Disposition (needs filled in before D/C Order can be placed): Home, Self Care Charges/Coding Visit Charges Inpatient E&M: 29886 Disch Hosp >30min
--- NOTE | 2023-08-02 14:40 | PHA.DC.MR.R ---
Pharmacy [place] Med Reconciliation Pharmacy Service has performed discharge medication reconciliation for this patient. The patient's discharge medication list was reviewed for discrepancies and discrepancies were resolved. Medications at Discharge Home Medications amlodipine 5 mg tablet See Rx Instructions .Route .COMPLEX #90 TABLETS 07/19/23
== END 2023-08-02 15:40 | disposition home or self-care (01) | DRG 390 ==
LOC: ED 18:23 → MS3 19:12
PROVIDERS: Student in an Organized Health Care Education/Training Program; Admitting Provider Family Medicine; Emergency Provider Emergency Medicine; PCP Internal Medicine
DX: K56.609 Unspecified intestinal obstruction, unspecified as to partial versus complete obstruction (principal); E66.9 Obesity, unspecified; N18.30 Chronic kidney disease, stage 3 unspecified; I12.9 Hypertensive chronic kidney disease with stage 1 through stage 4 chronic kidney disease, or unspecified chronic kidney disease; E78.5 Hyperlipidemia, unspecified; I25.10 Atherosclerotic heart disease of native coronary artery without angina pectoris; I25.2 Old myocardial infarction; I89.0 Lymphedema, not elsewhere classified; Z95.828 Presence of other vascular implants and grafts; N63.20 Unspecified lump in the left breast, unspecified quadrant; R09.02 Hypoxemia; Z68.31 Body mass index [BMI] 31.0-31.9, adult; Z90.710 Acquired absence of both cervix and uterus; Z79.82 Long term (current) use of aspirin; Z79.899 Other long term (current) drug therapy; Z85.42 Personal history of malignant neoplasm of other parts of uterus; Z86.79 Personal history of other diseases of the circulatory system; Z86.16 Personal history of COVID-19
CPT/HCPCS: 36415; 71046; 71275; 74176; 74250; 80048; 80053; 83690; 83880; 84145; 84484; 85025; 87633; 87635; 93005; 94668; 97162; 97166; 97530; 97535; 97802; 99252; 99285; J7030; Q9967; G0463; J2405

== ENCOUNTER → 2024-04-12 | Outpatient (CLI) | payer MEDICARE, BC, SELFPAY ==
[2024-04-12 12:41] LABS: Absolute Lymphocyte Count 1.24 X10^3/uL (0.83-4.51); Absolute Neutrophil Count 3.1 X10^3/uL (2.0-7.7); Basophil# 0.06 X10^3/uL; Basophil% 1.1 % (0-1); Eosinophil# 0.28 X10^3/uL; Eosinophils% 5.1 % (0-5); Hematocrit 46.4 % (37-47); Hemoglobin 14.5 g/dL (12.0-15.0); Lymphocyte # 1.24 X10^3/ul (0.83-4.51); Lymphocyte % 22.5 % (19-41); Mean Corp Hgb Conc 31.3 g/dL (32-36); Mean Corpuscular Hgb 29.7 pg (27.0-32.0); Mean Corpuscular Volume 95.1 fL (81-99); Mean Platelet Vol. 9.6 fl (6.2-12.0); Monocyte% 14.5 % (0-10); NRBC Flagged by Analyzer 0 % (0-5); Neutrophil # 3.12 X10^3/uL (2.7-7.7); Neutrophil % 56.4 % (47-70); Platelet Count 226 K/mm3 (150-450); RBC Distribution Width CV 16.4 % (11.6-14.6); RBC Distribution Width SD 57.1 fl (35.1-43.9); Red Blood Count 4.88 M/mm3 (4.2-5.4); White Blood Count 5.5 K/mm3 (4.4-11.0)
[2024-04-12 13:09] LABS: ALB/GLOB Ratio 0.8 RATIO (0.9-2.4); AST(SGOT) 15 U/L (15-37); Alanine Aminotransfer ALT/SGPT 17 U/L (13-56); Albumin, Serum 3.4 g/dL (3.2-5.0); Alkaline Phosphatase 91 U/L (45-117); Anion Gap 5 (5-15); BUN 20 mg/dL (7-18); BUN/Creat Ratio 19.2 RATIO (10-20); Calcium,Total 9.5 mg/dL (8.5-10.1); Chloride 108 mmol/L (98-107); Cholesterol 231 mg/dL (200); Creatinine, Serum 1.04 mg/dL (0.55-1.02); EST Glomerular Filtration Rate 54 mL/min (>60); Est Glom Filt Rate - Afr Amer 65 mL/min (>60); Glucose 84 mg/dL (74-106); High Density Lipoprotein 60 mg/dL; Potassium 4.1 mmol/L (3.5-5.1); Protein, Total 7.4 g/dL (6.4-8.2); Sodium Level 139 mmol/L (136-145); Triglycerides 141 mg/dL; Very Low Density Lipoprotein 28 mg/dL (5-40)
== END | disposition home or self-care (01) ==
LOC: BIMLAB 09:51
PROVIDERS: PCP Internal Medicine; Referring Provider Internal Medicine; Visit Provider Internal Medicine
DX: I10 Essential (primary) hypertension (principal)
CPT/HCPCS: 36415; 80053; 80061; 85025

== ENCOUNTER → 2024-07-13 | Outpatient (CLI) | payer MEDICARE, BC, MEDICAID, SELFPAY ==
[2024-07-13 13:14] LABS: Anion Gap 5 (5-15); BUN 15 mg/dL (7-18); BUN/Creat Ratio 14.3 RATIO (10-20); Calcium,Total 9.5 mg/dL (8.5-10.1); Chloride 108 mmol/L (98-107); Creatinine, Serum 1.05 mg/dL (0.55-1.02); EST Glomerular Filtration Rate 53 mL/min (>60); Est Glom Filt Rate - Afr Amer 65 mL/min (>60); Glucose 87 mg/dL (74-106); Potassium 4.3 mmol/L (3.5-5.1); Sodium Level 141 mmol/L (136-145)
== END | disposition home or self-care (01) ==
LOC: BIMLAB 09:35
PROVIDERS: PCP Internal Medicine; Referring Provider Internal Medicine; Visit Provider Internal Medicine
DX: I10 Essential (primary) hypertension (principal)
CPT/HCPCS: 36415; 80048

== ENCOUNTER → 2024-09-05 | Outpatient (CLI) | payer MEDICARE, BC, MEDICAID, SELFPAY ==
--- NOTE | 2024-09-05 15:30 | RAD_ITS ---
STUDY: X-RAY CHEST REASON FOR EXAM: Female, 84 years old. Cough TECHNIQUE: PA and lateral views of the chest. COMPARISON: Comparison is made with prior study July 30, 2023. FINDINGS: New right middle lobe infiltrate. Mild increased markings at the left lung base suggestive of either left basilar atelectasis and/or early infiltrates. There is no demonstrated pleural abnormality. Normal size heart. Normal mediastinum and benigno. Normal visualized pulmonary arteries. There is atherosclerotic calcification of the aortic arch with tortuosity. There are diffuse degenerative changes of the visualized thoracic spine. Increased kyphosis. Normal visualized ribs, clavicles, and shoulders. Endoluminal stent grafting is seen within the abdominal aorta. RAD/Chest PA and Lateral IMPRESSION: Right middle lobe infiltrate with increased markings at the left lung base. Radiographic follow-up recommended. Electronically Signed: Damian Knight MD at 15:50 EDT ,
--- OUTSIDE RECORDS SUMMARY | 2024-09-05 19:52 | XMS RPT_ITS | CCD ---
Author Organization [facility] Inform ion Partnership [facility] Care Team Providers Care Surgical Nurse Practitioner Name Role Phone ALLAN DEVLIN Attending Unavailable JACQUELINE SHI Admitting Unavailable JACQUELINE SHI Consulting Unavailable JANNET EMANUEL Consulting Unavailable TAVARES AYALA Consulting Unavailable Anna Juarez MD Primary Care Provider [phone] Anna Juarez MD Primary Care Provider [phone] MENDEZ ENCISO Referring Unavailable OLEGHE, EFEWONGBE B Primary Care Unavailable JOSEPHMENDEZ P Referring Unavailable OLEGHE, EFEWONGBE B Primary Care Unavailable MENDEZ ENCISO P Attending Unavailable MENDEZ ENCISO P Admitting Unavailable OLEGHE, EFEWONGBE B Primary Care Unavailable LINDSAY TONEY Referring Unavailable OLEGHE, EFEWONGBE B Primary Care Unavailable OLEGHE, EFEWONGBE B Primary Care Unavailable MENDEZ ENCISO P Referring Unavailable OLEGHE, EFEWONGBE B Primary Care Unavailable MENDEZ ENCISO P Referring Unavailable JOSEPHMENDEZ P Attending Unavailable OLEGHE, EFEWONGBE B Primary Care Unavailable JOSEPH MENDEZ P Referring Unavailable OLEGHE, EFEWONGBE B Primary Care Unavailable JOSEPH MENDEZ P Referring Unavailable JOSEPH, MENDEZ P Referring Unavailable OLEGHE, EFEWONGBE B Primary Care Unavailable OLEGHE, EFEWONGBE B Primary Care Unavailable MENDEZ ENCISO P Attending Unavailable OLEGHE, EFEWONGBE B Primary Care Unavailable MENDEZ ENCISO P Attending Unavailable MENDEZ ENCISO P Referring Unavailable MENDEZ ENCISO P Attending Unavailable MENDEZ ENCISO P Referring Unavailable OLEGHE, EFEWONGBE B Primary Care Unavailable MENDEZ ENICSO P Attending Unavailable LINDSAY TONEY Referring Unavailable Allergies Allergy Classification Reported Allergen(s) Allergy Type Date of Onset Reaction(s) Facility (11 sources) rosuvastatin; Translations: [ROSUVASTATIN] Drug Allergy 09-04-20 22 Myalgia [facility] (11 sources) Shellfish; Translations: [SHELLFISH DERIVED] Drug Allergy 09-04-20 22 Swelling [facility] (11 sources) Sulfonamides (Antibiotic); Translations: [SULFA (SULFONAMIDE ANTIBIOTICS)] Drug Intolerance 09-04-20 22 GI Upset [facility] (11 sources) Trimethoprim; Translations: [TRIMETHOPRIM] Drug Allergy 09-04-20 22 Unknown [facility] (2 sources) Acetaminophen / oxyCODONE; Translations: [OXYCODONE-ACETAM INOPHEN] Drug Allergy 07-27-20 23 Other: See Comments [facility] (1 source) Fish - dietary; Translations: [FISH] Propensity to adverse reactions to food (disorder) 01-29-20 10 [facility] Rep[facility] Medications Current Medications Medication Drug Class(es) Dates Sig (Normalized) Sig (Original) acetaminophen 325 mg / oxyCODONE hydrochloride 5 mg oral tablet (1 source) Opioid Agonist Start: 07-02-2023 End: 07-07-2023 take 1 tablet by mouth every six hours as needed oxyCODONE-acetami nophen (PERCOCET) 5-325 mg tablet Indications: Recurrent incisional hernia Take 1 tablet by mouth every 6 hours as needed for up to 5 days. 20 tablet 0 07/02/2023 07/07/2023 Active Comment on above: Take 1 tablet by darius every 6 hours as needed for up to 5 days. Completed/Discontinued Medications Medication Drug Class(es) Dates Sig (Normalized) Sig (Original) acetaminophen 325 mg oral capsule (6 sources) End: 06-21-2023 take 2 capsules by mouth every six hours as needed acetaminophen 325 mg cap Take 650 mg by mouth every 6 hours as needed. 0 06/21/2023 Discontinued Comment on above: Take 650 mg by mouth every 6 hours as needed. amLODIPine 5 mg oral tablet (8 sources) Dihydropyridine Calcium Channel Alfredo Start: 08-11-2022 take 1 tablet by mouth once daily amLODIPine (NORVASC) 5 mg tablet Take 5 mg by mouth once daily. 0 08/11/2022 Active Comment on above: Take 5 mg by mouth o nce daily. apixaban 5 mg oral tablet (6 sources) Factor Xa Inhibitor End: 06-21-2023 take 1 tablet by mouth twice daily apixaban (ELIQUIS) 5 mg tab(s) Take 5 mg by mouth twice daily. 0 06/21/2023 Discontinued Comment on above: Take 5 mg by mouth t wice daily. ascorbic acid 500 mg oral tablet (6 sources) Vitamin C Start: 08-17-2022 End: 06-21-2023 take 1 tablet by mouth every other day ascorbic acid, vitamin C, (VITAMIN C) 500 mg tablet Take 500 mg by mouth every other day. 0 08/17/2022 06/21/2023 Discontinued Comment on above: Take 500 mg by mouth every other day. biotin 10 mg oral capsule (8 sources) Start: 04-14-2022 Biotin 10,000 mcg cap Take 5,000 mcg by mouth once daily. 0 04/14/2022 Active Start: 04-14-2022 Biotin 10,000 mcg cap Take by mouth. 0 04/14/2022 Active Comment on above: Take by mouth. Take 5,000 mcg by mo ut once daily. docusate sodium 100 mg oral tablet (6 sources) End: 3 take 1 tablet by mouth once daily Docusate Sodium 100 mg tab Take 100 mg by mouth once daily. 0 06/21/2023 Discontinued Comment on above: Take 100 mg by mouth once daily. guaiFENesin 20 mg/ml oral solution (6 sources) End: 3 take 200 mg by mouth every four hours as needed guaiFENesin (ROBITUSSIN) 100 mg/5 mL syrup Take 200 mg by mouth every 4 hours as needed. 0 06/21/2023 Discontinued Comment on above: Take 200 mg by mouth every 4 hours as needed. multivit,thx,calcium ,iron,mins (MULTIVITAMIN AND MINERAL ORAL) (8 sources) multivit,thx,rosita cium, iron,mins (MULTIVITAMIN AND MINERAL ORAL) Take by mouth once daily. 0 Active Comment on above: Take by mouth once d aily. nystatin 100 unt/mg topical powder (8 sources) Polyene Antifungal nystatin (MYC OSTATIN) powder Apply 1 application to affected area three times daily. 0 Active Comment on above: Apply 1 application to affected area three times daily. 24 hr oxybutynin chloride 5 mg extended release oral tablet (3 sources) Cholinergic Muscarinic Antagonist Start: 3 take 1 tablet by mouth once daily oxybutynin XL (DITROPAN XL) 5 mg 24 hr tablet Take 5 mg by mouth once daily. 0 04/26/2023 Active Comment on above: Take 5 mg by mouth o nce daily. zinc sulfate 220 mg oral tablet (6 sources) Start: 2 End: 3 Zinc Sulfate 50 mg zinc (220 mg) tab Take 50 mg by mouth. Wednesday, Wednesday and Wednesday 0 08/17/2022 06/21/2023 Discontinued Comment on above: Take 50 mg by mouth. Wednesday, Wednesday and Wednesday Problems Active Problems Problem Classification Problem Date Documented Da te Episodic/Chronic Cancer of uterus (9 sources) Malignant neoplasm of endometrium of corpus uteri ; Translations: [Malignant neoplasm of endometrium] 02-05-2010 Chronic Conduction disorders (4 sources) Incomplete right bundle branch block; Translations: [Unspecified right bundle-branch block] Onset: 06-21-2023 06-21-2023 Chronic Disorders of lipid metabolism (4 sources) Mixed hyperlipidemia; Translations: [Mixed hyperlipidemia] Onset: 04-23-2023 06-21-2023 Chronic Essential hypertension (4 sources) Benign essential hypertension; Translations: [Essential (primary) hypertension] Onset: 06-21-2023 06-21-2023 Chronic Genitourinary symptoms and ill-defined conditions (4 sources) Mixed urinary incontinence; Translations: [Mixed incontinence] Onset: 06-21-2023 06-21-2023 Chronic Other aftercare (3 sources) Follow-up status; Translations: [Encounter for other specified aftercare] Episodic Other infections; including parasitic (4 sources) Personal history of other infectious and parasitic diseases; Translations: [History of severe acute respiratory syndrome coronavirus 2 (SARS-CoV-2) disease] Onset: 06-21-2023 06-21-2023 Episodic Other inflammatory condition of skin (8 sources) Rosacea; Translations: [Rosacea, unspecified] Onset: 02-05-2010 02-05-2010 Chronic Other nutritional; endocrine; and metabolic disorders (2 sources) Obese class I; Translations: [Obesity, unspecified] Onset: 07-01-2023 07-01-2023 Chronic Residual codes; unclassified (4 sources) Bilateral lower limb edema; Translations: [Localized edema] Onset: 06-21-2023 06-21-2023 Episodic Unclassified (1 source) Post Op Follow Up Onset: 07-27-2023 Past or Other Problems Problem Classification Problem Date Documented Da te Episodic/Chronic Abdominal hernia (4 sources) Incisional hernia without obstruction or gangrene; Translations: [Incisional hernia] Onset: 05-12-2023 05-17-2023 Episodic Genitourinary symptoms and ill-defined conditions (8 sources) Increased frequency of urination; Translations: [Frequency of micturition] Onset: 05-05-2010 05-05-2010 Episodic Results Test Name Value Interpretation Reference Range Facility [facility] CNOVon 07-27-2023 CNOV Office Visit (GENSWS ) ELA JOHNSON ([id number]) 1940 F Date Time Provider Department 07/27/23 8:00 AM MENDEZ ENCISO During your visit today, we recorded the following information about you: Temperature Pulse Blood pressure Weight 97.4 degrees 100/minute 122/74 89.8 kg Mendez Enciso MD 08/23/2023 11:32 AM Signed Subjective: Patient is status post an incisional hernia repair on 07/02/2023. Postoperatively she went into respiratory failure and was subsequently sent to [facility] for a work-up for her hypoxia and a cardiology consultation. She had a CTA which did not show any signs signs of PE. Troponin elevation was thought to be due to hypoxia. Cardiology reviewed and recommended no further work-up. She subsequently has been improving at home. Objective:Blood pressure 122/74, pulse 100, temperature 36.3 ?C (97.4 ?F), weight 89.8 kg (198 lb), SpO2 94 %. Abdomen is soft. Incisions healing without signs of infection. Assessment: Aftercare. We will have the patient follow-up with me in 1 month. Referring Provider: MENDEZ ENCISO [[id number]] Allergies As of Date: 07/27/2023 Noted Allergy Reaction SHELLFISH DERIVED 09/04/2022 7 - Swelling Comments: Patient states throat itches. OXYCODONE-ACETAMINOPH EN 07/27/2023 14 - Other: See Comments Comments: Hypoxia-family does not want her to have any respiratory suppression medications. ROSUVASTATIN 09/04/2022 17 - Myalgia SULFA (SULFONAMIDE ANTIBIOTICS) 09/04/2022 8 - GI Upset TRIMETHOPRIM 09/04/2022 16 - Unknown Date Reviewed: 07/27/2023 Reviewed by: Alexsandra Zamarripa RN - Fully Assessed Reason for Visit: Post Op Follow Up [3947] Cmt: Post-op incisional hernia repair. Primary Visit Diagnosis:Aftercare [Z51.89] Prescriptions as of 08/23/2023 - amLODIPine (NORVASC) 5 mg tablet Take 5 mg by mouth once daily. - Biotin 10,000 mcg cap Take 5,000 mcg by mouth once daily. - multivit,thx,calcium, iron,mins (MULTIVITAMIN AND MINERAL ORAL) Take by mouth once daily. - nystatin (MYCOSTATIN) powder Apply 1 application to affected area three times daily. - oxybutynin XL (DITROPAN XL) 5 mg 24 hr tablet Take 5 mg by mouth once daily. Problem List As Of Date 07/27/2023 Noted Resolved Endometrial Cancer [C54.1] Rosacea [L71.9] 02/05/2010 Urinary Frequency [R35.0] 05/05/2010 Essential hypertension, benign [I10] 06/21/2023 Mixed stress and urge urinary incontinence [N39*06/21/2023 Hyperlipidemia [E78.5] 04/23/2023 History of severe acute respiratory syndrome co*06/21/2023 Bilateral leg edema [R60.0] 06/21/2023 Incomplete RBBB [I45.10] 06/21/2023 Obesity, Class I, BMI 30-34.9 [E66.9] 07/01/2023 Recurrent incisional hernia [K43.2] 07/02/2023 07/02/2023 Encounter Status:Closed by MENDEZ ENCISO on 08/23/23 [facility] CNPNon 07-26-2023 CNPN Telephone (GENSWS) ELA JOHNSON ([id number]) 1940 F Date Time Provider Department 07/26/23 MENDEZ ENCISO GENSWS During your visit today, we recorded the following information about you: Ritika Yoo LPN 07/26/2023 10:00 AM Signed Called and left message for patient to call office back, what hospital did patient get admitted too, after hernia surgery. [facility]? Ritika Yoo LPN Allergies As of Date: 07/26/2023 Noted Allergy Reaction SHELLFISH DERIVED 09/04/2022 7 - Swelling Comments: Patient states throat itches. ROSUVASTATIN 09/04/2022 17 - Myalgia SULFA (SULFONAMIDE ANTIBIOTICS) 09/04/2022 8 - GI Upset TRIMETHOPRIM 09/04/2022 16 - Unknown Date Reviewed: 07/02/2023 Reviewed by: Noemí Lees RN - Fully Assessed Reason for Visit: Patient Update [1234] Cmt: [facility] Prescriptions as of 07/26/2023 - oxybutynin XL (DITROPAN XL) 5 mg 24 hr tablet Take 5 mg by mouth once daily. - amLODIPine (NORVASC) 5 mg tablet Take 5 mg by mouth once daily. - Biotin 10,000 mcg cap Take 5,000 mcg by mouth once daily. - nystatin (MYCOSTATIN) powder Apply 1 application to affected area three times daily. - multivit,thx,calcium, iron,mins (MULTIVITAMIN AND MINERAL ORAL) Take by mouth once daily. Problem List As Of Date 07/26/2023 Noted Resolved Endometrial Cancer [C54.1] Rosacea [L71.9] 02/05/2010 Urinary Frequency [R35.0] 05/05/2010 Essential hypertension, benign [I10] 06/21/2023 Mixed stress and urge urinary incontinence [N39*06/21/2023 Hyperlipidemia [E78.5] 04/23/2023 History of severe acute respiratory syndrome co*06/21/2023 Bilateral leg edema [R60.0] 06/21/2023 Incomplete RBBB [I45.10] 06/21/2023 Obesity, Class I, BMI 30-34.9 [E66.9] 07/01/2023 Recurrent incisional hernia [K43.2] 07/02/2023 07/02/2023 Encounter Status:Closed by RITIKA YOO on 07/26/23 [facility] CNPNon 07-07-2023 CNPN Telephone (GENSWS) ELA JOHNSON ([id number]) 1940 F Date Time Provider Department 07/07/23 MENDEZ ENCISO During your visit today, we recorded the following information about you: Holger Sis Fatoumata 07/07/2023 9:05 AM Signed Elsa - daughter calling and states she needs to cancel her mom's post op appointment with Carmelina Lacy. Patient had hernia surgery with Dr. Enciso. States her mom was sent home with a UTI and was admitted to the hospital on Wednesday for a possible overdose on Oxycodone and heart issues then to the ICU. Hopefully she will be out of the ICU and sent home this week. Daughter would like to be called if she needs to reschedule the post op appointment? Carmelina Lacy PA-C 07/07/2023 10:29 AM Signed Reviewed message with Dr. Enciso. Have patient reschedule a post-op appointment with Dr. Bascom please (not urgently, can be in 1-2 weeks once she is feeling better from recent hospitalization) Keisha Caraballo 07/07/2023 11:31 AM Signed Called and spoke with pt daughter Kateryna. She said pt was just moved to rehab today and is expected to be in hospital for 2 more weeks. We scheduled the patient for 07/27 at 8:00 am Keisha Allergies As of Date: 07/07/2023 Noted Allergy Reaction SHELLFISH DERIVED 09/04/2022 7 - Swelling Comments: Patient states throat itches. ROSUVASTATIN 09/04/2022 17 - Myalgia SULFA (SULFONAMIDE ANTIBIOTICS) 09/04/2022 8 - GI Upset TRIMETHOPRIM 09/04/2022 16 - Unknown Date Reviewed: 07/02/2023 Reviewed by: Noemí Lees RN - Fully Assessed Prescriptions as of 07/07/2023 - oxyCODONE-acetaminoph en (PERCOCET) 5-325 mg tablet Take 1 tablet by mouth every 6 hours as needed for up to 5 days. - oxybutynin XL (DITROPAN XL) 5 mg 24 hr tablet Take 5 mg by mouth once daily. - amLODIPine (NORVASC) 5 mg tablet Take 5 mg by mouth once daily. - Biotin 10,000 mcg cap Take 5,000 mcg by mouth once daily. - nystatin (MYCOSTATIN) powder Apply 1 application to affected area three times daily. - multivit,thx,calcium, iron,mins (MULTIVITAMIN AND MINERAL ORAL) Take by mouth once daily. Problem List As Of Date 07/07/2023 Noted Resolved Endometrial Cancer [C54.1] Rosacea [L71.9] 02/05/2010 Urinary Frequency [R35.0] 05/05/2010 Essential hypertension, benign [I10] 06/21/2023 Mixed stress and urge urinary incontinence [N39*06/21/2023 Hyperlipidemia [E78.5] 04/23/2023 History of severe acute respiratory syndrome co*06/21/2023 Bilateral leg edema [R60.0] 06/21/2023 Incomplete RBBB [I45.10] 06/21/2023 Obesity, Class I, BMI 30-34.9 [E66.9] 07/01/2023 Recurrent incisional hernia [K43.2] 07/02/2023 07/02/2023 Encounter Status:Closed by CARABALLOKEISHA FERNANDES on 07/07/23 [facility] ANES POSTPROC EVALon 023 ANES POSTPROC EVAL HNO ID: [id number] Author: Grupo Wei MD Service: Anesthesiology Author Type: Anesthesiologist Type: Anesthesia Postprocedure Evaluation Filed: 07/02/2023 10:35 AM Note Text: POST ANESTHESIA EVALUATION NOTE : 1940 Procedure Summary Date: 07/02/23 Room / Location: NC OR / NC OR Anesthesia Start: 855 Anesthesia Stop: 1028 Procedure: HERNIORRHAPHY INCISIONAL ABDOMINAL ADULT INITIAL REDUCIBLE 3cm-10cm (Abdomen) Diagnosis: Recurrent incisional hernia (Recurrent incisional hernia [K43.2]) Surgeons: Mendez Enciso MD Responsible Provider: Grupo Wei MD Anesthesia Type: general ASA Status: 3 Anesthesia Type: general Airway Type: ETT Last Vitals Vitals Value Taken Time BP 133/62 07/02/23 1030 Temp 36.1 ?C (97 ?F) 07/02/23 1025 Pulse 72 07/02/23 1034 Resp 20 07/02/23 1034 SpO2 99 % 07/02/23 1034 Vitals shown include unvalidated device data. Post Anesthesia Patient Status Patient Evaluation: bedside. Anticipated Disposition: phase 2 then home. Neurological Status: aware and responsive. Pulmonary Status: breathing comfortably on room air Airway Control: returned to baseline unsupported. Cardiovascular Status: stable. Pain Management: clinically adequate Postoperative Hydration: acceptable. Intraoperative Events: no significant anesthesia events Post Operative Nausea/Vomiting Status: no significant post operative nausea or vomiting Recommendation: continue current plan of care. Anesthesia Observations No Documentation SIGNATURE: Grupo Wei MD PATIENT NAME: Ela Johnson DATE: July 02, 2023 TIME: 10:35 AM CSN: [id number] [facility] ANES PRE-OPon 07-02-2023 ANES PRE-OP HNO ID: [id number] Author: Grupo Wei MD Service: Anesthesiology Author Type: Anesthesiologist Type: Anesthesia Preprocedure Evaluation Filed: 07/02/2023 8:01 AM Note Text: ANESTHESIOLOGY DAY OF SURGERY NOTE : 1940 Procedure Information Date/Time: 07/02/23909 Procedure: HERNIORRHAPHY INCISIONAL ABDOMINAL ADULT INITIAL REDUCIBLE 3cm-10cm Location: NC OR03 / NC OR Surgeons: Mendez Enciso MD Estimated body mass index is 33.81 kg/m? as calculated from the following: Height as of 06/21/23: 162.6 cm (5' 4 ). Weight as of 06/21/23: 89.4 kg (197 lb). Most recent hematocrit and potassium results: Hematocrit 45.0 06/21/2023 Potassium 4.2 06/21/2023 Relevant Problems CARDIO (+) Essential hypertension, benign (+) Incomplete RBBB NEURO-PSYCH (+) History of severe acute respiratory syndrome coronavirus 2 (SARS-CoV-2) disease PULMONARY (+) History of severe acute respiratory syndrome coronavirus 2 (SARS-CoV-2) disease I - PHYSICAL EVALUATION AIRWAY Patient intubated: No. Tracheostomy tube not present Mallampati: II. TM distance: >3 FB. Neck ROM: full ROM without neurological symptoms. Mouth opening: adequate. Short neck: no. Thick neck: no DENTAL Dental findings: missing tooth/teeth and chipped. Additional exam findings: no II - ANESTHESIA PLAN ASA Score: 3 Anesthetic Plan: general Airway type: ETT The patient is not a current smoker. NPO Status: adequate Beta Alfredo Monitoring Plan Monitoring plan: standard ASA. Post Procedure Analgesic Plan Postoperative analgesic plan: parenteral or oral opioids and multimodal analgesia. Informed Consent Anesthetic risks, benefits, alternatives, personnel and consent discussed: yes. Patient / Responsible Libertarian agrees to proceed: yes Patient / Surrogate agrees to blood products: blood products not planned DNR status not reviewed with patient and/or family prior to surgery. Significant changes in the patient condition since the History and Physical, not otherwise documented in primary service progress note: no. Potential Anesthesia issues that may suggest increased risk of complications or contraindication to planned procedure: none. Discussed the possibility of lip / dental damage: yes Vitals Value Taken Time BP 175/77 07/02/23 0753 Pulse 72 07/02/23 0753 Resp 16 07/02/23 0753 Temp 36.2 ?C (97.2 ?F) 07/02/23 075 SpO2 94 % 07/02/23752 Facility-Administered Medications as of 07/02/2023 Medication Dose Route Frequency - lidocaine (PF) 10 mg/mL (1 %) 1-2 mg injection (XYLOCAINE) 0.1-0.2 mL INTRADERMAL PRN - lactated ringers iv infusion 5-30 mL/hr INTRAVENOUS CONTINUOUS - NaCl 0.9% iv flush bag 20 mL INTRAVENOUS PRN - ceFAZolin iv piggyback 2 g in D5W (iso-osmotic) 100 mL (ANCEF) 2 g INTRAVENOUS Pre-Op Once - acetaminophen 1,000 mg tab(s) (TYLENOL) 1,000 mg ORAL Pre-Op Once - promethazine 12.5 mg tab(s) (PHENERGAN) 12.5 mg ORAL Pre-Op Once Outpatient Medications as of 07/02/2023 Medication Sig - amLODIPine (NORVASC) 5 mg tablet Take 5 mg by mouth once daily. - oxybutynin XL (DITROPAN XL) 5 mg 24 hr tablet Take 5 mg by mouth once daily. - Biotin 10,000 mcg cap Take 5,000 mcg by mouth once daily. - nystatin (MYCOSTATIN) powder Apply 1 application to affected area three times daily. - multivit,thx,calcium, iron,mins (MULTIVITAMIN AND MINERAL ORAL) Take by mouth once daily. I have interviewed and examined the patient. I have reviewed the medical record and/or the pre-anesthesia evaluation, pertinent labs, and test results. This contains updated information obtained within 48 hours of Surgery/Procedure. SIGNATURE: Grupo Wei MD PATIENT NAME: Ela Johnson DATE: July 02, 2023 TIME: 8:01 AM CSN: [id number] [facility] HISTORY PHYSICALon HISTORY PHYSICAL HNO ID: [id number] Author: Mendez Enciso MD Service: General Surgery Author Type: Physician Type: HANDP Filed: 07/02/2023 8:29 AM Note Text: HISTORY AND PHYSICAL Ela Johnson 1940 REFERRING PHYSICIAN: No ref. provider found CHIEF COMPLAINT: Consult (Bulge where previous hernia surgery) HPI: Ela is a 83 year old female with a complaint of a bulge in her prior midline incision. The patient notes discomfort in this area with lifting. The symptoms have maintained, over the past few months. Patient status post emergent surgery for an incarcerated incisional hernia repair on 08/17/2022. Patient has been doing well not having any abdominal complaints moving her bowels gradually increasing her activities. She has not had any undue abdominal pain. Recent CAT scan showed the recurrence of a fat-containing hernia in the epigastric region without any signs of acute inflammation. Hernias 5.3 cm in size PAST MEDICAL HISTORY PAST MEDICAL HISTORY Diagnosis Date Acute respiratory failure with hypoxia (HCC) Difficulty walking Endometrial cancer (HCC) Incisional hernia 08/24/2022 Loss of coordination Muscle weakness (generalized) Obesity Unspecified essential hypertension PAST SURGICAL HISTORY PAST SURGICAL HISTORY Procedure Laterality Date RAD ABDL HYSTERECTOMY W/BI PELVIC LMPHADENECTOMY 02/13/2010 REPAIR INCISIONAL HERNIA,REDUCIBLE 08/17/2022 CURRENT MEDICATIONS Current Outpatient Medications Medication Sig amLODIPine (NORVASC) 5 mg tablet Take 5 mg by mouth once daily. Biotin 10,000 mcg cap Take 5,000 mcg by mouth once daily. nystatin (MYCOSTATIN) powder Apply 1 application to affected area three times daily. multivit,thx,calcium, iron,mins (MULTIVITAMIN AND MINERAL ORAL) Take by mouth once daily. iv contrast (will be provided with radiology test) CT ABD/PEL -Inject, intravenously, once for 1 dose.No IV access, insert saline lock prior to the beginning of sedation, infusion, injection of imaging exam. Discontinue saline lock post exam. If Pt. has a central line or IVAD, may access for administration according to line specific nursing protocol. Once exam is complete flush line and de-access according to line specific nursing protocol in the CT contrast administration guidelines link. enteric contrast (will be provided with radiology test) For CT ABD/PEL W IVCON Routine order Administer, As Directed One Time Only, via Oral, Rectal, both Oral and Rectal, Enteric Tube, Stoma or Indwelling Catheter, Enteric Contrast as designated per enteric contrast guidelines ascorbic acid, vitamin C, (VITAMIN C) 500 mg tablet Take 500 mg by mouth every other day. (Patient not taking: Reported on 04/20/2023) Zinc Sulfate 50 mg zinc (220 mg) tab Take 50 mg by mouth. Wednesday, Wednesday and Wednesday (Patient not taking: Reported on 04/20/2023) acetaminophen 325 mg cap Take 650 mg by mouth every 6 hours as needed. (Patient not taking: Reported on 04/20/2023) Docusate Sodium 100 mg tab Take 100 mg by mouth once daily. (Patient not taking: Reported on 04/20/2023) guaiFENesin (ROBITUSSIN) 100 mg/5 mL syrup Take 200 mg by mouth every 4 hours as needed. (Patient not taking: Reported on 04/20/2023) apixaban (ELIQUIS) 5 mg tab(s) Take 5 mg by mouth twice daily. (Patient not taking: Reported on 04/20/2023) No current facility-administered medications for this visit. 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 Eyes: The patient denies glaucoma, denies eye injury/surgery, does not wear glasses or contacts. Ear/Nose/Throat: The patient denies allergies, denies hayfever, denies ear infections, and denies bloody noses. Cardiovascular: The patient denies chest pain, denies heart disease, notes high blood pressure,denies cardiac stent, denies prior heart attack, denies irregular heart beat, denies high cholesterol, denies poor circulation, denies heart failure, other cardiac issues, denies claudication, denies cold feet, denies peripheral arterial stent. Respiratory: The patient denies tuberculosis, denies pneumonia, denies frequent cough, denies pulmonary embolism, denies shortness of breath, and denies coughing up bl (more content not included)... [facility] OPERATIVE NOon 07-02-2023 OPERATIVE NO HNO ID: [id number] Author: Mendez Enciso MD Service: General Surgery Author Type: Physician Type: Operative Report Filed: 07/02/2023 10:16 AM Note Text: OPERATIVE/PROCEDURE REPORT LOG ID: [id number] SURGERY/PROCEDURE DATE: 07/02/2023 INCISION/PROCEDURE START TIME: 9:22 AM INCISION CLOSE/PROCEDURE END TIME: 10:12 AM SURGEON(S)/PROCEDURAL IST(S) AND DIRECTOR OF ELEMENTARY EDUCATION(S): Surgeon(s) and Role: * Mendez Enciso MD - Primary Physician Inside Sales Account Executive: Argenis Hunt (Angelito) SURGERY/PROCEDURE(S): Recurrent incisional hernia ANESTHESIA: General SURGERY/PROCEDURE DETAILS: Patient was brought into the operating room. Placed in the supine position. Under excellent general anesthetic abdomen was sterilely prepped and draped in the usual fashion. Local was injected at her previous incision dissection was carried down recurrent incisional hernia sac was identified I dissected this free from the fascia and placed it back into its preperitoneal space. This hernia sac was approximately 4 cm in greatest length. I then created a preperitoneal window. This was done with combination of blunt dissection with a 4 x 4 and electrocautery. I palpated the remaining fascia inferiorly as well as superiorly I did not feel any other defects. Once I have freed the preperitoneal space completely I placed an 8 x 8 Parietex mesh into the wound. I circumferentially tacked it to the surrounding fascia with #1 Nurolon's. I injected more Exparel rel into the fascia. Once this was completed I then brought the deep subcu together with 2-0 Vicryl deep dermals with 3-0 Vicryl's and a running 4-0 Monocryl in the skin Steri-Strips were applied sterile dressings were applied and the patient tolerated the procedure well. Argenis KERNS was my evaluation assistant. She assisted with retraction, visualization and performed skin closure. No additional surgeons or qualified residents were available. PRE-OP/PRE-PROCEDURE DIAGNOSIS: Recurrent incisional hernia POST-OP/POST-PROCEDUR E DIAGNOSIS: Same as Preop ESTIMATED BLOOD LOSS: < 15 mls SPECIMENS: None IMPLANTABLE DEVICES: Implant Name Type Inv. Item Serial No. Muffle Operator Lot No. LRB No. Used Action MESH PARIETEX 8.6CM SMALL COLLAGEN SURGICAL PATCH SELF CENTER COMPOSITE - [id number] Mesh MESH PARIETEX 8.6CM SMALL COLLAGEN SURGICAL PATCH SELF CENTER COMPOSITE [employer] [id number] N/A 1 Implanted DRAINS: None COMPLICATIONS: None CLOSURE TECHNIQUE: Primary PARTICIPATION IN SURGERY/PROCEDURE: I/primary surgeon/proceduralist performed the procedure with assistance. SIGNATURE: Mendez Enciso III, MD PATIENT NAME: Ela Johnson DATE: July 02, 2023 TIME: 10:04 AM [facility] CBC W Auto Differential pane l (Bld)on 06-21-2023 Basophils (Bld) [#/Vol] 0.06 10*3/uL Normal <0.11 [facility] Comment on above: Order Comment: Speci men Type: BLOOD SPECIMENOrdering Facility: [facility] Address: [address] [place] [address] Performed By: #### 5 7021-8 ####[facility] [id number] [place] [address] [place] Basophils/100 WBC (Bld) 1.2 % Normal [facility] Comment on above: Order Comment: Speci men Type: BLOOD SPECIMENOrdering Facility: [facility] Address: [address] [place] [address] Performed By: #### 5 7021-8 ####[facility] [id number] [place] [address] [place] Differential cell count method Nom (Bld) Auto Normal [facility] Comment on above: Order Comment: Speci men Type: BLOOD SPECIMENOrdering Facility: [facility] Address: [address] [place] [address] Performed By: #### 5 7021-8 ####[facility] [id number] [place] [address] [place] Eosinophils (Bld) [#/Vol] 0.23 10*3/uL Normal <0.46 [facility] Comment on above: Order Comment: Speci men Type: BLOOD SPECIMENOrdering Facility: [facility] Address: [address] [address] Performed By: #### 5 7021-8 ####[facility] BHAVINJAMES [id number] [place] [address] [place] Eosinophils/100 WBC (Bld) 4.7 % Normal [facility] Comment on above: Order Comment: Speci men Type: BLOOD SPECIMENOrdering Facility: [facility] Address: [address] [place] [address] Performed By: #### 5 7021-8 ####[facility] [id number] [place] [address] [place] Erythrocyte distribution width (RBC) [Ratio] 16.0 % High 11.5-15.0 [facility] Comment on above: Order Comment: Speci men Type: BLOOD SPECIMENOrdering Facility: [facility] Address: [address] [place] [address] Performed By: #### 5 7021-8 ####[facility] [id number] [place] [address] [place] Hematocrit (Bld) [Volume fraction] 45.0 % Normal 36.0-46.0 [facility] Comment on above: Order Comment: Speci men Type: BLOOD SPECIMENOrdering Facility: [facility] Address: [address] [place] [address] Performed By: #### 5 7021-8 ####[facility] [id number] [place] [address] [place] Hemoglobin (Bld) [Mass/Vol] 14.6 g/dL Normal 11.5-15.5 [facility] Comment on above: Order Comment: Speci men Type: BLOOD SPECIMENOrdering Facility: [facility] Address: [address] [place] [address] Performed By: #### 5 7021-8 ####[facility] MILLWNCLIA [id number] [place] [address] [place] Immature granulocytes (Bld) [#/Vol] 10*3/uL Normal <0.10 [facility] Comment on above: Order Comment: Speci men Type: BLOOD SPECIMENOrdering Facility: [facility] Address: [address] [place] [address] Performed By: #### 5 7021-8 ####[facility]ENCYWCTLIA [id number] [place] [address] [place] Immature granulocytes/100 WBC (Bld) 0.4 % Normal [facility] Comment on above: Order Comment: Speci men Type: BLOOD SPECIMENOrdering Facility: [facility] Address: [address] [place] [address] Performed By: #### 5 7021-8 ####[facility] SYSTEM[facility] [id number] [place] [address] [place] Lymphocytes (Bld) [#/Vol] 0.94 10*3/uL Low 1.00-4.00 [facility] Comment on above: Order Comment: Speci men Type: BLOOD SPECIMENOrdering Facility: [facility] Address: [address] [place] [address] Performed By: #### 5 7021-8 ####[facility]ENCYWNCL[facility] [id number] [place] [address] [place] Lymphocytes/100 WBC (Bld) 19.0 % Normal [facility] Comment on above: Order Comment: Speci men Type: BLOOD SPECIMENOrdering Facility: [facility] Address: [address] [place] [address] Performed By: #### 5 7021-8 ####[facility] SYSTEM[facility] [id number] [place] [address] [place] MCH (RBC) [Entitic mass] 30.6 pg Normal 26.0-34.0 [facility] Comment on above: Order Comment: Speci men Type: BLOOD SPECIMENOrdering Facility: [facility] Address: [address] [place] [address] Performed By: #### 5 7021-8 ####[facility] [id number] [place] [address] [place] MCHC (RBC) [Mass/Vol] 32.4 g/dL Normal 30.5-36.[address] [facility] Comment on above: Order Comment: Speci men Type: BLOOD SPECIMENOrdering Facility: [facility] Address: [address] [place] [address] Performed By: #### 5 7021-8 ####[facility] [id number] [place] [address] [place] MCV (RBC) [Entitic vol] 94.3 fL Normal 80.0-100.0 [facility] Comment on above: Order Comment: Speci men Type: BLOOD SPECIMENOrdering Facility: [facility] Address: [address] [place] [address] Performed By: #### 5 7021-8 ####[facility] [id number] [place] [address] [place] Monocytes (Bld) [#/Vol] 0.71 10*3/uL Normal <0.87 [facility] Comment on above: Order Comment: Speci men Type: BLOOD SPECIMENOrdering Facility: [facility] Address: [address] [place] [address] Performed By: #### 5 7021-8 ####[facility] [id number] [address] [place] Monocytes/100 WBC (Bld) 14.4 % Normal [facility] Comment on above: Order Comment: Speci men Type: BLOOD SPECIMENOrdering Facility: [facility] Address: [address] [place] [address] Performed By: #### 5 7021-8 ####[facility] BHAVINWRIGHTSVILLEBEATRIZLIA [id number] [place] [address] [place] Neutrophils (Bld) [#/Vol] 2.98 10*3/uL Normal 1.45-7.50 [facility] Comment on above: Order Comment: Speci men Type: BLOOD SPECIMENOrdering Facility: [facility] Address: [address] [place] [address] Performed By: #### 5 7021-8 ####[facility] [id number] [place] [address] [place] Neutrophils/100 WBC (Bld) 60.3 % Normal [facility] Comment on above: Order Comment: Speci men Type: BLOOD SPECIMENOrdering Facility: [facility] Address: [address] [place] [address] Performed By: #### 5 7021-8 ####[facility] [id number] [place] [address] [place] Nucleated RBC (Bld) [#/Vol] 10*3/uL Normal <0.01 [facility] Comment on above: Order Comment: Speci men Type: BLOOD SPECIMENOrdering Facility: [facility] Address: [address] [place] [address] Performed By: #### 5 7021-8 ####[facility] SYSTEM[facility] [id number] [place] [address] [place] Nucleated RBC/100 WBC (Bld) [Ratio] 0.0 /100 WBC Normal [facility] Comment on above: Order Comment: Speci men Type: BLOOD SPECIMENOrdering Facility: [facility] Address: [address] [place] [address] Performed By: #### 5 7021-8 ####[facility] MILLTOWNCLIA [id number] [place] [address] [place] Platelet mean volume (Bld) [Entitic vol] 8.8 fL Low 9.0-12.7 [facility] Comment on above: Order Comment: Speci men Type: BLOOD SPECIMENOrdering Facility: [facility] Address: [address] [place] [address] Performed By: #### 5 7021-8 ####[facility] [id number] [place] [address] [place] Platelets (Bld) [#/Vol] 183 10*3/uL Normal 150-400 [facility] Comment on above: Order Comment: Speci men Type: BLOOD SPECIMENOrdering Facility: [facility] Address: [address] [place] [address] Performed By: #### 5 7021-8 ####[facility] [id number] [place] [address] [place] RBC (Bld) [#/Vol] 4.77 10*6/uL Normal 3.90-5.20 [facility] Comment on above: Order Comment: Speci men Type: BLOOD SPECIMENOrdering Facility: [facility] Address: [address] [place] [address] Performed By: #### 5 7021-8 ####[facility]YWNCLIA [id number] [place] [address] [place] WBC (Bld) [#/Vol] 4.94 10*3/uL Normal 3.70-11.00 [facility] Comment on above: Order Comment: Speci men Type: BLOOD SPECIMENOrdering Facility: [facility] Address: [address] [place] [address] Performed By: #### 5 7021-8 ####[facility] [id number] [place] [address] [place] Basophils (Bld) [#/Vol] 0.06 10*3/uL <0.11 k/uL [facility] Basophils/100 WBC (Bld) 1.2 % [facility] Differential cell count method Nom (Bld) Auto [facility] Eosinophils (Bld) [#/Vol] 0.23 10*3/uL <0.46 k/uL [facility] Eosinophils/100 WBC (Bld) 4.7 % [facility] Erythrocyte distribution width (RBC) [Ratio] 16.0 % High 11.5 - 15.0 % [facility] Hematocrit (Bld) [Volume fraction] 45.0 % 36.0 - 46.0 % [facility] Hemoglobin (Bld) [Mass/Vol] 14.6 g/dL 11.5 - 15.5 g/dL [facility] Immature granulocytes (Bld) [#/Vol] <0.10 k/uL [facility] Immature granulocytes/100 WBC (Bld) 0.4 % [facility] Lymphocytes (Bld) [#/Vol] 0.94 10*3/uL Low 1.00 - 4.00 k/uL [facility] Lymphocytes/100 WBC (Bld) 19.0 % [facility] MCH (RBC) [Entitic mass] 30.6 pg 26.0 - 34.0 pg [facility] MCHC (RBC) [Mass/Vol] 32.4 g/dL 30.5 - 36.0 g/dL [facility] MCV (RBC) [Entitic vol] 94.3 fL 80.0 - 100.0 fL [facility] Monocytes (Bld) [#/Vol] 0.71 10*3/uL <0.87 k/uL [facility] Monocytes/100 WBC (Bld) 14.4 % [facility] Neutrophils (Bld) [#/Vol] 2.98 10*3/uL 1.45 - 7.50 k/uL [facility] Neutrophils/100 WBC (Bld) 60.3 % [facility] Nucleated RBC (Bld) [#/Vol] <0.01 k/uL [facility] Nucleated RBC/100 WBC (Bld) [Ratio] 0.0 /100 WBC [facility] Platelet mean volume (Bld) [Entitic vol] 8.8 fL Low 9.0 - 12.7 fL [facility] Platelets (Bld) [#/Vol] 183 10*3/uL 150 - 400 k/uL [facility] RBC (Bld) [#/Vol] 4.77 10*6/uL 3.90 - 5.2 0 m/uL [facility] WBC (Bld) [#/Vol] 4.94 10*3/uL 3.70 - 11. 00 k/uL [facility] Comprehensive metabolic 2000 panelon 06-21-2023 Albumin [Mass/Vol] 3.9 g/dL Normal 3.9-4.9 [facility] Comment on above: Order Comment: Speci men Type: BLOOD SPECIMENOrdering Facility: [facility] Address: [address] [place] [address] Performed By: #### 2 4323-8 ####[facility] [id number] [place] [address] [place] ALP [Catalytic activity/Vol] 120 U/L Normal 34-123 [facility] Comment on above: Order Comment: Speci men Type: BLOOD SPECIMENOrdering Facility: [facility] Address: [address] [place] [address] Performed By: #### 2 4323-8 ####[facility] [id number] [place] [address] [place] ALT [Catalytic activity/Vol] 10 U/L Normal 7-38 [facility] Comment on above: Order Comment: Speci men Type: BLOOD SPECIMENOrdering Facility: [facility] Address: [address] [place] [address] Performed By: #### 2 4323-8 ####[facility] [id number] [place] [address] [place] Anion gap [Moles/Vol] 10 mmol/L Normal 9-[address] [facility] Comment on above: Order Comment: Speci men Type: BLOOD SPECIMENOrdering Facility: [facility] Address: [address] [address] Performed By: #### 2 4323-8 ####[facility] BHAVINRICHARDLIA [id number] [place] [address] [place] AST [Catalytic activity/Vol] 15 U/L Normal 13-35 [facility] Comment on above: Order Comment: Speci men Type: BLOOD SPECIMENOrdering Facility: [facility] Address: [address] [address] Performed By: #### 2 4323-8 ####[facility] [id number] [place] [address] [place] Bilirubin [Mass/Vol] 0.6 mg/dL Normal 0.2-1.3 [facility] Comment on above: Order Comment: Speci men Type: BLOOD SPECIMENOrdering Facility: [facility] Address: [address] [address] Performed By: #### 2 4323-8 ####[facility] [id number] [place] [address] [place] Calcium [Mass/Vol] 9.6 mg/dL Normal 8.5-10.2 [facility] Comment on above: Order Comment: Speci men Type: BLOOD SPECIMENOrdering Facility: [facility] Address: [address] [address] Performed By: #### 2 4323-8 ####[facility] [id number] [place] [address] [place] Chloride [Moles/Vol] 105 mmol/L Normal 97-105 [facility] Comment on above: Order Comment: Speci men Type: BLOOD SPECIMENOrdering Facility: [facility] Address: [address] [address] Performed By: #### 2 4323-8 ####[facility] [id number] [place] [address] [place] CO2 [Moles/Vol] 25 mmol/L Normal 22-30 [facility] Comment on above: Order Comment: Speci men Type: BLOOD SPECIMENOrdering Facility: [facility] Address: [address] [place] [address] Performed By: #### 2 4323-8 ####[facility] [id number] [place] [address] [place] Creatinine [Mass/Vol] 1.09 mg/dL High 0.58-0.[address] [facility] Comment on above: Order Comment: Speci men Type: BLOOD SPECIMENOrdering Facility: [facility] Address: [address] [place] [address] Performed By: #### 2 4323-8 ####[facility] [id number] [place] [address] [place] ESTIMATED GLOMERULAR FILTRATION RATE 51 mL/min/1.73m??? Low >=60 [facility] Comment on above: Order Comment: Speci men Type: BLOOD SPECIMENOrdering Facility: [facility] Address: [address] [place] [address] Result Comment: Tanisha mated Glomerular Filtration Rate (eGFR) is calculated using the 2020 CKD-EPI creatinine equation. This equation utilizes serum creatinine, sex, and age as parameters. The creatinine assay has traceable calibration to isotope dilution-mass spectrometry. Refer to KDIGO guidelines for clinical interpretation. In patients with unstable renal function, e.g. those with acute kidney injury, the eGFR may not accurately reflect actual GFR. Performed By: #### 2 4323-8 ####[facility] [id number] [place] [address] [place] Glucose [Mass/Vol] 99 mg/dL Normal 74-99 [facility] Comment on above: Order Comment: Speci men Type: BLOOD SPECIMENOrdering Facility: [facility] Address: [address] [address] Result Comment: The [place] [employer] Association (ADA) provides guidance for cutoff values for fasting glucose and random glucose. The ADA defines fasting as no caloric intake for at least 8 hours. Fasting plasma glucose results between 100 to 125 mg/dL indicate increased risk for diabetes (prediabetes). Fasting plasma glucose results greater than or equal to 126 mg/dL meet the criteria for diagnosis of diabetes. In the absence of unequivocal hyperglycemia, results should be confirmed by repeat testing. In a patient with classic symptoms of hyperglycemia or hyperglycemic crisis, random plasma glucose results greater than or equal to 200 mg/dL meet the criteria for diagnosis of diabetes. Reference: Standards of Medical Care in Diabetes 2016, [place] [employer]. Diabetes Care. 2016.39(Suppl 1). Performed By: #### 2 4323-8 ####[facility] [id number] [place] [address] [place] Potassium [Moles/Vol] 4.2 mmol/L Normal 3.7-5.[address] [facility] Comment on above: Order Comment: Speci men Type: BLOOD SPECIMENOrdering Facility: [facility] Address: [address] [address] Performed By: #### 2 4323-8 ####[facility] [id number] [place] [address] [place] Protein [Mass/Vol] 7.1 g/dL Normal 6.3-8.0 [facility] Comment on above: Order Comment: Speci men Type: BLOOD SPECIMENOrdering Facility: [facility] Address: [address] [address] Performed By: #### 2 4323-8 ####[facility] [id number] [place] [address] [place] Sodium [Moles/Vol] 140 mmol/L Normal 136-144 [facility] Comment on above: Order Comment: Speci men Type: BLOOD SPECIMENOrdering Facility: [facility] Address: [address] [address] Performed By: #### 2 4323-8 ####[facility] [id number] [place] [address] [place] Urea nitrogen [Mass/Vol] 17 mg/dL Normal 7-21 [facility] Comment on above: Order Comment: Speci men Type: BLOOD SPECIMENOrdering Facility: [facility] Address: [address] [address] Performed By: #### 2 4323-8 ####[facility]YWNCL[facility] [id number] [place] [address] [place] Albumin [Mass/Vol] 3.9 g/dL 3.9 - 4.9 g/dL [facility] ALP [Catalytic activity/Vol] 120 U/L 34 - 123 U/L [facility] ALT [Catalytic activity/Vol] 10 U/L 7 - 38 U/L [facility] Anion gap [Moles/Vol] 10 mmol/L 9 - 18 mmol/L [facility] AST [Catalytic activity/Vol] 15 U/L 13 - 35 U/L [facility] Bilirubin [Mass/Vol] 0.6 mg/dL 0.2 - 1 .3 mg/dL [facility] Calcium [Mass/Vol] 9.6 mg/dL 8.5 - 10. 2 mg/dL [facility] Chloride [Moles/Vol] 105 mmol/L 97 - 10 5 mmol/L [facility] CO2 [Moles/Vol] 25 mmol/L 22 - 30 mmol/L [facility] Creatinine [Mass/Vol] 1.09 mg/dL High 0.58 - 0.96 mg/dL [facility] Estimated Glomerular Filtration Rate 51 mL/min/1.73m Low >=60 mL/min/1.73m [facility] Glucose [Mass/Vol] 99 mg/dL 74 - 99 mg/dL [facility] Potassium [Moles/Vol] 4.2 mmol/L 3.7 - 5.1 mmol/L [facility] Protein [Mass/Vol] 7.1 g/dL 6.3 - 8.0 g/dL Cl [facility] Sodium [Moles/Vol] 140 mmol/L 136 - 144 mmol/L [facility] Urea nitrogen [Mass/Vol] 17 mg/dL 7 - 21 mg/dL [facility] DCA49ih 06-21-2023 ECG01 Ventricular Rate : 6 5 BPM Atrial Rate : 65 BPM P-R Interval : 140 ms QRS Duration : 92 ms Q-T Interval : 420 ms QTC Calculation(Bazett) : 436 ms Calculated P Surprise : 22 degrees Calculated R Surprise : -41 degrees Calculated T Surprise : 59 degrees NORMAL SINUS RHYTHM LEFT AXIS DEVIATION RSR' PATTERN IN V1 SUGGESTS INCOMPLETE RIGHT BUNDLE BRANCH BLOCK ABNORMAL ECG Confirmed by DEVANG VELEZ D.O. ([id number]) on 07/02/2023 7:37:51 AM NAME : ELA JOHNSON PID : [id number] : 1940 Gender : Female Race : ORD : Procedure Date : Jun 21 2023 09:05:04 Edit Date : Jul 02 2023 07:37:53 Diagnosis: NORMAL SINUS RHYTHM LEFT AXIS DEVIATION RSR' PATTERN IN V1 SUGGESTS INCOMPLETE RIGHT BUNDLE BRANCH BLOCK ABNORMAL ECG Confirmed by DEVANG VELEZ D.O. ([id number]) on 07/02/2023 7:37:51 AM Test Reason : Location : 6 : [facility] Overread By : DEVANG VELEZ D.O. Edited By : DEVANG VELEZ D.O. Referred By : MENDEZ ENCISO Acquired by : Kristina webb [facility] HISTORY PHYSICALon HISTORY PHYSICAL HNO ID: [id number] Author: Lindsay Toney APRN.[employer] Service: ? Author Type: Nurse Practitioner Type: HANDP Filed: 06/21/2023 10:27 AM Note Text: HISTORY AND PHYSICAL EXAMINATION SERVICE DATE: 06/21/2023 SERVICE TIME: 10:25 AM PRIMARY CARE PHYSICIAN: Anna Juarez MD REASON FOR VISIT: Ela Johnson is a 83 year old female who is scheduled for Procedure(s): LAPAROSCOPIC HERNIA REPAIR INCISIONAL RECURRENT W/ MESH REDUCIBLE 3cm-10cm (N/A) at the request of Dr. Mendez Enciso for consultation. My final recommendation will be communicated back to the requesting physician by way of shared medical record or letter. 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 CHIEF COMPLAINT: Pre-op exam HPI: Ela Johnson is a 83 year old seen for PAC due to scheduled above surgery because of a recurrent incisional hernia. 05/17/2023, Dr. Enciso HPI: Ela is a 83 year old female with a complaint of a bulge in her prior midline incision. The patient notes discomfort in this area with lifting. The symptoms have maintained, over the past few months. Patient status post emergent surgery for an incarcerated incisional hernia repair on 08/17/2022. Patient has been doing well not having any abdominal complaints moving her bowels gradually increasing her activities. She has not had any undue abdominal pain. Recent CAT scan showed the recurrence of a fat-containing hernia in the epigastric region without any signs of acute inflammation. Hernias 5.3 cm in size REVIEW OF SYSTEMS: General: No weight loss, malaise or fevers. Neurological: No history of TIA's, stroke, RETORT CONDENSER ATTENDANT tumor, impaired sensorium, hemiplegia, paraplegia or quadraplegia. No neurological symptoms or problems. Respiratory: No history of current cough or dyspnea, or pneumonia in the past 6 weeks. No history of respiratory/pulmonary symptoms or problems. Cardiovascular: Positive for: hyperlipidemia, hypertension and PVD Negative for: anticoagulation therapy, arrhythmia, atrial fibrillation, CAD, chest pain, CHF, congenital heart defect, DVT/PE, recent KS, murmur/valvular heart disease, PTCA, open heart surgery and valve surgery. GI: No history of GI symptoms or problems. No history of esophageal varices, recent ascites, or ETOH greater than 2 drinks per day. : Positive for: urinary incontinence (on rx). Negative for: nephrolithiasis, renal failure and urinary tract infection. INDEX CLERK: Negative for abnormal vaginal bleeding, abnormal vaginal discharge. Endocrine: No history of diabetes. Has not taken steroids within the past 30 days. No history of endocrinological symptoms or problems. Hematology: No history of bleeding or clotting disorder. Patient is not taking anti-coagulation or platelet medications. No history of hematological symptoms or problems. Oncology: +endometrial cancer, s/p hyster and XRT, denies chemo Psych: No history of psychiatric symptoms or problems. Musculoskeletal: Negative for joint pain or swelling, back pain or muscle pain. Skin: Negative for lesions, rash and itching. 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 Taking Yes Biotin 10,000 mcg cap Take 5,000 mcg by mouth once daily. Taking Yes nystatin (MYCOSTATIN) powder Apply 1 application to affected area three times daily. Taking Yes multivit,thx,calcium, iron,mins (MULTIVITAMIN AND MINERAL ORAL) Take by mouth once daily. Taking Yes oxybutynin XL (DITROPAN XL) 5 mg 24 hr tablet Take 5 mg by mouth once daily. No medication comments found. ALLERGIES Allergen Reactions Shellfish Derived Swelling Patient stat (more content not included)... Normal [facility] CNOVon 05-17-2023 CNOV Office Visit (GENSWS ) ELA JOHNSON ([id number]) 1940 F Date Time Provider Department 05/17/23 2:00 PM MENDEZ ENCISO During your visit today, we recorded the following information about you: Temperature Pulse Blood pressure Weight 97.5 degrees 78/minute 142/76 91.4 kg Mendez Enciso III, MD 05/17/2023 2:26 PM Signed HISTORY AND PHYSICAL Ela Johnson 1940 REFERRING PHYSICIAN: No ref. provider found CHIEF COMPLAINT: Consult (Bulge where previous hernia surgery) HPI: Ela is a 83 year old female with a complaint of a bulge in her prior midline incision. The patient notes discomfort in this area with lifting. The symptoms have maintained, over the past few months. Patient status post emergent surgery for an incarcerated incisional hernia repair on 08/17/2022. Patient has been doing well not having any abdominal complaints moving her bowels gradually increasing her activities. She has not had any undue abdominal pain. Recent CAT scan showed the recurrence of a fat-containing hernia in the epigastric region without any signs of acute inflammation. Hernias 5.3 cm in size PAST MEDICAL HISTORY PAST MEDICAL HISTORY Diagnosis Date Acute respiratory failure with hypoxia (HCC) Difficulty walking Endometrial cancer (HCC) Incisional hernia 08/24/2022 Loss of coordination Muscle weakness (generalized) Obesity Unspecified essential hypertension PAST SURGICAL HISTORY PAST SURGICAL HISTORY Procedure Laterality Date RAD ABDL HYSTERECTOMY W/BI PELVIC LMPHADENECTOMY 02/13/2010 REPAIR INCISIONAL HERNIA,REDUCIBLE 08/17/2022 CURRENT MEDICATIONS Current Outpatient Medications Medication Sig amLODIPine (NORVASC) 5 mg tablet Take 5 mg by mouth once daily. Biotin 10,000 mcg cap Take 5,000 mcg by mouth once daily. nystatin (MYCOSTATIN) powder Apply 1 application to affected area three times daily. multivit,thx,calcium, iron,mins (MULTIVITAMIN AND MINERAL ORAL) Take by mouth once daily. iv contrast (will be provided with radiology test) CT ABD/PEL -Inject, intravenously, once for 1 dose.No IV access, insert saline lock prior to the beginning of sedation, infusion, injection of imaging exam. Discontinue saline lock post exam. If Pt. has a central line or IVAD, may access for administration according to line specific nursing protocol. Once exam is complete flush line and de-access according to line specific nursing protocol in the CT contrast administration guidelines link. enteric contrast (will be provided with radiology test) For CT ABD/PEL W IVCON Routine order Administer, As Directed One Time Only, via Oral, Rectal, both Oral and Rectal, Enteric Tube, Stoma or Indwelling Catheter, Enteric Contrast as designated per enteric contrast guidelines ascorbic acid, vitamin C, (VITAMIN C) 500 mg tablet Take 500 mg by mouth every other day. (Patient not taking: Reported on 04/20/2023) Zinc Sulfate 50 mg zinc (220 mg) tab Take 50 mg by mouth. Wednesday, Wednesday and Wednesday (Patient not taking: Reported on 04/20/2023) acetaminophen 325 mg cap Take 650 mg by mouth every 6 hours as needed. (Patient not taking: Reported on 04/20/2023) Docusate Sodium 100 mg tab Take 100 mg by mouth once daily. (Patient not taking: Reported on 04/20/2023) guaiFENesin (ROBITUSSIN) 100 mg/5 mL syrup Take 200 mg by mouth every 4 hours as needed. (Patient not taking: Reported on 04/20/2023) apixaban (ELIQUIS) 5 mg tab(s) Take 5 mg by mouth twice daily. (Patient not taking: Reported on 04/20/2023) No current facility-administered medications for this visit. 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 Eyes: The patient denies glaucoma, denies eye injury/surgery, does not wear glasses or contacts. Ear/Nose/Throat: The patient denies allergies, denies hayfever, denies ear infections, and denies bloody noses. Cardiovascular: The patient denies chest pain, denies heart disease, notes high blood pressure,denies cardiac stent, denies prior heart attack, denies irregular heart beat, denies high cholesterol, denies poor circulation, denies heart failu (more content not included)... [facility] HNO ID: [id number] Author: RT Francisca(R) Service: ? Author Type: Back End Web Developer Type: [facility] Filed: 05/12/2023 3:14 PM Note Text: Radiology Service Progress Note DATE OF SERVICE: May 12, 2023 TIME: 3:14 PM PATIENT IDENTITY VERIFICATION COMPLETED USING TWO (2) STANDARD IDENTIFIERS: Name and Date of confirmed by patient verbally. FALL SCREENING: Has the patient had 2 falls in the last year or 1 fall with injury or currently using an Ambulatory Assistive Device (Walker, Cane, Wheelchair, Crutches, etc.)? No PATIENT GENDER DATA: Female. status: : No status: NO. PATIENT RELEVANT IMPLANT DATA REVIEWED: Not Applicable ALLERGIES: Reviewed and unchanged CONTRAST ALLERGY: NO. EXAM: CT -CONTRAST INDUCED NEPHROPATHY RISK FACTORS: Patient age > 60 years CREATININE: Creatinine Date Value Ref Range Status 05/12/2023 1.06 (H) 0.58 - 0.96 mg/dL Final 02/15/2010 0.98 0.70 - 1.40 mg/dL Final 02/14/2010 0.83 0.70 - 1.40 mg/dL Final Estimated Glomerular Filtration Rate Date Value Ref Range Status 05/12/2023 53 (L) >=60 mL/min/1.73m? Final Comment: Estimated Glomerular Filtration Rate (eGFR) is calculated using the 2020 CKD-EPI creatinine equation. This equation utilizes serum creatinine, sex, and age as parameters. The creatinine assay has traceable calibration to isotope dilution-mass spectrometry. Refer to KDIGO guidelines for clinical interpretation. In patients with unstable renal function, e.g. those with acute kidney injury, the eGFR may not accurately reflect actual GFR. eGFR- Date Value Ref Range Status 02/05/2010 >60 Final P.O.C.T. RESULTS: POC done: Yes, See Lab Tab May 12, 2023 TREATMENT: N/A PERIPHERAL IV DATA: Ambulatory: A peripheral IV was started in the Right antecubital site with a Angio cath: 22 gauge. RADIOLOGY DEPARTMENT: CT; Exam(s) Completed: Abdomen/Pelvis SIGNATURE: RT Francisca(R) PATIENT NAME: Ela Johnson DATE: May 12, 2023 TIME: 3:14 PM Normal [facility] CREATININE BLDon 05-12-2023 Creatinine [Mass/Vol] 1.06 mg/dL High 0.58-[address] [facility] Comment on above: Order Comment: Speci men Type: BLOOD SPECIMENOrdering Facility: [facility] Address: [address] [place] [address] Performed By: #### C RET1 ####[facility] [id number] [place] [address] [place] ESTIMATED GLOMERULAR FILTRATION RATE 53 mL/min/1.73m??? Low >=60 [facility] Comment on above: Order Comment: Speci men Type: BLOOD SPECIMENOrdering Facility: [facility] Address: [address] [place] [address] Result Comment: Tanisha mated Glomerular Filtration Rate (eGFR) is calculated using the 2020 CKD-EPI creatinine equation. This equation utilizes serum creatinine, sex, and age as parameters. The creatinine assay has traceable calibration to isotope dilution-mass spectrometry. Refer to KDIGO guidelines for clinical interpretation. In patients with unstable renal function, e.g. those with acute kidney injury, the eGFR may not accurately reflect actual GFR. Performed By: #### C RET1 ####[facility] [id number] [place] [address] [place] CT ABD/PEL W IVCONon 023 CT ABD/PEL W IVCON * * *Final Report* * * DATE OF EXAM: May 12 2023 3:10PM [facility] 0530 - CT ABD/PEL W IVCON / PROCEDURE REASON: Recurrent incisional hernia * * * * Physician Interpretation * * * * EXAMINATION: CT ABDOMEN AND PELVIS WITH IV CONTRAST CLINICAL HISTORY: Recurrent incisional hernia TECHNIQUE: CT of the abdomen and pelvis was performed using standard technique, scanning from just above the dome of the diaphragm to the symphysis pubis. MQ: CTAP_3 Contrast: IV: 100 ml of Omnipaque 350 Oral: 25 ml of Omni 300 10-25ml diluted with water CT Radiation dose: Integrated Dose-length product (DLP) for this visit = 746.05 mGy*cm. CT Dose Reduction Employed: Automated exposure control (AEC) COMPARISON: Non radiology CT for treatment planning 04/08/2010 RESULT: Liver: No mass. Biliary: No bile duct dilation. Cholelithiasis easily of mild gallbladder wall thickening suggesting chronic inflammation but no adjacent fluid to suggest acute inflammation. No biliary ductal dilation. Spleen: No mass. No splenomegaly. Calcified granulomas. Pancreas: No mass or duct dilation. Adrenals: No mass. Kidneys: A 1.7 cm cyst is present in the superior left renal pole. Symmetric nephrograms. No hydronephrosis or nephrolithiasis. GI tract: Small hiatal hernia. No dilation or wall thickening. Appendix is normal. Mild sigmoid diverticulosis without evidence of acute inflammation. Lymph nodes: No abdominal or pelvic lymphadenopathy. Mildly prominent inguinal lymph nodes measure up to 1.2 cm on the left. Pelvic lymph node dissection. Mesentery/Peritoneum: No ascites or mass. Retroperitoneum: No mass. Vasculature: - Abdominal aorta and iliac arteries: Infrarenal abdominal aorta endograft and 5.3 cm excluded aneurysm sac with mild calcifications evaluation for endoleak is degraded in this single phase exam. No acute periaortic inflammation. Patent iliac limbs. - Celiac and SMA: Patent - Portal venous system (SMV, splenic vein, portal vein and branches): Patent. - Hepatic veins: Patent. - Other: Retroaortic left renal vein, no significant compression and symmetric nephrograms. Pelvis: No mass, ascites or fluid collection. Hysterectomy and bilateral salpingo-oophorectomy with pelvic lymph node dissection. Bladder is underdistended, suggestion of mild mucosal thickening is possibly accentuated due to low volume. Postoperative changes in the inguinal regions. Bones/Soft Tissues: A 5.3 cm fat-containing epigastric hernia demonstrates no fat stranding or fluid to suggest acute inflammation. Postoperative changes in the ventral abdominal wall. Thoracolumbar spondylosis. No acute osseous abnormalities. Lower thorax: A 1.8 cm lobulated nodularity in the medial hemisphere of the left breast might represent breast parenchyma although underlying lesion cannot be excluded. Certified Hyperbaric Technician (topogram) images: No additional findings. IMPRESSION: 1. Small fat-containing hernia in the epigastric region demonstrate no evidence of acute inflammation. 2. Status post with EVAR, the excluded aneurysm sac measures up to 5.3 cm with a few coarse calcifications, evaluation for endoleak is degraded in this single phase exam. Recommend correlation with prior studies if available. 3. Pelvic lymph node dissection, mildly prominent inguinal lymph nodes are nonspecific. 4. Partially imaged asymmetric breast tissue, for which correlation with dedicated breast imaging is recommended. Other chronic findings, as above. --If prior studies become available, an addendum can be performed if requested.-- Sport Psychologist: PSCB Transcribe Date/Time: May 14 2023 11:31A Dictated by : BEV FERRER MD This examination was interpreted and the report reviewed and electronically signed by: BEV FERRER MD on May 14 2023 11:41AM EST [id number] Normal [facility] CNOVon 04-20-2023 CN Office Visit (GENSWS ) ELA JOHNSON ([id number]) 1940 F Date Time Provider Department 04/20/23 1:15 PM MENDEZ ENCISO During your visit today, we recorded the following information about you: Temperature Pulse Blood pressure Weight 97.6 degrees 90/minute 138/82 90.3 kg Height 1.626 m Ritika FredoAUGUSTINE 04/20/2023 1:44 PM Signed REVIEW OF SYSTEMS: General: The patient notes fatigue, denies weight loss, denies weight gain, denies feeling hot, and denies feelings of cold. Eyes: The patient denies glaucoma, denies eye injury/surgery, does not wear glasses or contacts. Ear/Nose/Throat: The patient denies allergies, denies hayfever, denies ear infections, and denies bloody noses. Cardiovascular: The patient denies chest pain, denies heart disease, notes high blood pressure,denies cardiac stent, denies prior heart attack, denies irregular heart beat, denies high cholesterol, denies poor circulation, denies heart failure, other cardiac issues, denies claudication, denies cold feet, denies peripheral arterial stent. Respiratory: The patient denies tuberculosis, denies pneumonia, denies frequent cough, denies pulmonary embolism, denies shortness of breath, and denies coughing up blood. Gastrointestinal: The patient denies difficulty swallowing, denies acid reflux, denies ulcers, denies vomiting, denies jaundice/hepatitis, denies gallbladder problems, denies black or tarry stools, denies hemorrhoids, denies bleeding from rectum, denies diverticulitis, denies constipation, denies diarrhea, denies loss of stool control, and notes hernias. Kidney/Bladder: The patient denies kidney stones, denies urine infections, and denies bloody urine. Skin: The patient denies a history of skin cancer, denies bleeding/changing moles, and denies a history of skin rash. Neurologic: The patient denies a history of epilepsy/convulsions, denies headaches, denies head/spinal injuries, and denies stroke/TIA. Psychiatric: The patient denies psychiatric medications, denies depression, and denies voices, denies substance abuse. Endocrine: The patient denies thyroid disorders, denies diabetes, and denies hormonal problems. Hematologic: The patient denies a history of bruising, denies bleeding, and denies anemia, denies blood clots. Infections: The patient denies a history of measles and mumps, denies rheumatic fever, and denies sexually transmitted diseases. Musculoskeletal: The patient denies back pain/injury, denies back problems, denies sciatica, denies knee/foot trouble, denies arthritis, or denies gout. When was patient's last Mammogram screening? none Last Colonoscopy: none AUGUSTINE Rivera III, MD 04/20/2023 2:11 PM Signed HISTORY AND PHYSICAL Ela Jade 1940 REFERRING PHYSICIAN: No ref. provider found CHIEF COMPLAINT: Consult (Bulge where previous hernia surgery) HPI: Ela is a 83 year old female with a complaint of a bulge in her prior midline incision. The patient notes discomfort in this area with lifting. The symptoms have maintained, over the past few months. Patient status post emergent surgery for an incarcerated incisional hernia repair on 08/17/2022. Patient has been doing well not having any abdominal complaints moving her bowels gradually increasing her activities. She has not had any undue abdominal pain. PAST MEDICAL HISTORY Diagnosis Date Acute respiratory failure with hypoxia (HCC) Difficulty walking Endometrial cancer (HCC) Incisional hernia 08/24/2022 Loss of coordination Muscle weakness (generalized) Obesity Unspecified essential hypertension PAST SURGICAL HISTORY Procedure Laterality Date RAD ABDL HYSTERECTOMY W/BI PELVIC LMPHADENECTOMY 02/13/2010 REPAIR INCISIONAL HERNIA,REDUCIBLE 08/17/2022 Current Outpatient Medications Medication Sig amLODIPine (NORVASC) 5 mg tablet Take 5 mg by mouth once daily. Biotin 10,000 mcg cap Take 5,000 mcg by mouth once daily. nystatin (MYCOSTATIN) powder Apply 1 application to affected area three times daily. multivit,thx,calcium, iron,mins (MULTIVITAMIN AND MINERAL ORAL) Take by mouth once daily. iv contrast (will be provided with radiology test) CT ABD/PEL -Inject, intravenously, once for 1 dose.No IV access, insert saline lock prior to the beginning of sedation, infusion, injection of imaging exam. Discontinue saline lock post exam. If Pt. has a central line or IVAD, may access for administration according to line specific nursing protocol. Once exam is complete flush line and de-access according to line specific nursing protocol in the CT contrast administration guidelines link. enteric contrast (will be provided with radiology test) For CT ABD/PEL W IVCON Routine order Administer, As Directed One Time Only, via Oral, Rectal, both Oral and Rectal, Enteric Tube, Stoma or Indwelling C (more content not included)... Normal [facility] CNOVon 10-05-2022 CNOV Office Visit (GENSWS ) ELA JOHNSON ([id number]) 1940 F Date Time Provider Department 10/05/22 2:00 PM MENDEZ ENCISO During your visit today, we recorded the following information about you: Temperature Pulse Blood pressure Weight 97.7 degrees 105/minute 122/74 86.2 kg Mendez Enciso III, MD 10/06/2022 8:40 AM Signed Subjective: Patient status post emergent surgery for an incarcerated incisional hernia repair on 08/17/2022. Patient has been doing well not having any abdominal complaints moving her bowels gradually increasing her activities. She has not had any undue abdominal pain. Objective:Blood pressure 122/74, pulse 105, temperature 36.5 ?C (97.7 ?F), weight 86.2 kg (190 lb), SpO2 94 %. Abdomen is soft incisions are healed and clean without signs of any cellulitis. 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 She does understand she has a high likelihood that this hernia is going to come back since I had to fix it under tension with no mesh. Referring Provider: SELF [200] Allergies As of Date: 10/05/2022 Noted Allergy Reaction SHELLFISH DERIVED 09/04/2022 7 - Swelling Comments: Patient states throat itches. ROSUVASTATIN 09/04/2022 17 - Myalgia SULFA (SULFONAMIDE ANTIBIOTICS) 09/04/2022 8 - GI Upset TRIMETHOPRIM 09/04/2022 16 - Unknown Date Reviewed: 10/05/2022 Reviewed by: Natalya Lantigua RN - Fully Assessed Reason for Visit: Follow Up [171] Cmt: Incarcerated incisional hernia Primary Visit Diagnosis:Aftercare [Z51.89] Prescriptions as of 10/06/2022 - amLODIPine (NORVASC) 5 mg tablet Take 5 mg by mouth once daily. - ascorbic acid, vitamin C, (VITAMIN C) 500 mg tablet Take 500 mg by mouth every other day. - Biotin 10,000 mcg cap Take by mouth. - Zinc Sulfate 50 mg zinc (220 mg) tab Take 50 mg by mouth. Wednesday, Wednesday and Wednesday - acetaminophen 325 mg cap Take 650 mg by mouth every 6 hours as needed. - Docusate Sodium 100 mg tab Take 100 mg by mouth once daily. - guaiFENesin (ROBITUSSIN) 100 mg/5 mL syrup Take 200 mg by mouth every 4 hours as needed. - nystatin (MYCOSTATIN) powder Apply 1 application to affected area three times daily. - multivit,thx,calcium, iron,mins (MULTIVITAMIN AND MINERAL ORAL) Take by mouth once daily. - apixaban (ELIQUIS) 5 mg tab(s) Take 5 mg by mouth twice daily. Problem List As Of Date 10/05/2022 Noted Resolved Endometrial Cancer [C54.1] Rosacea [L71.9] 02/05/2010 Urinary Frequency [R35.0] 05/05/2010 Encounter Status:Closed by MENDEZ ENCISO on 10/06/22 [facility] 09-07-2022 [facility] Telephone ([employer]) ELA JOHNSON ([id number]) 1940 F Date Time Provider Department 09/07/22 MENDEZ ENCISO [employer] During your visit today, we recorded the following information about you: Alexsandra Zamarripa RN 09/07/2022 9:30 AM Signed CHRISTIANO Lopez from [facility] called [phone]. Ela is telling them that you advised she does not have to do any of the following exercises: no trunk rotation, no leg resistance and no bending to tile picker items off of the floor. They received your order for no leg lifts and they are complying with that order. Ela told them that you advised if she does any of those movements, her mesh will tear apart . Please advised what she may or may not do. KARY Alarcon III, MD 09/15/2022 9:15 AM Signed This is correct. I want her to do virtually no bending twisting or anything that will increase her intra-abdominal pressure for at least 2 months after her initial surgery. After then she can gradually increase her activities. Alexsandra Zamarripa RN 09/15/2022 10:22 AM Signed Called [facility] [phone]. No answer in the therapy department, left voicemail to please call and speak with a general surgery nurse. KARY Alarcon RN 09/15/2022 3:39 PM Signed Spoke with Isha at [facility]. She asked if I could fax a copy of this note to her office at [phone]. Alexsandra Zamarripa RN Allergies As of Date: 09/07/2022 Noted Allergy Reaction SHELLFISH DERIVED 09/04/2022 7 - Swelling Comments: Patient states throat itches. ROSUVASTATIN 09/04/2022 17 - Myalgia SULFA (SULFONAMIDE ANTIBIOTICS) 09/04/2022 8 - GI Upset TRIMETHOPRIM 09/04/2022 16 - Unknown Date Reviewed: 09/04/2022 Reviewed by: Alexsandra Zamarripa RN - Fully Assessed Reason for Visit: Order clarification [Other] Cmt: PT orders Prescriptions as of 09/15/2022 - amLODIPine (NORVASC) 5 mg tablet Take 5 mg by mouth once daily. - ascorbic acid, vitamin C, (VITAMIN C) 500 mg tablet Take 500 mg by mouth every other day. - Biotin 10,000 mcg cap Take by mouth. - Zinc Sulfate 50 mg zinc (220 mg) tab Take 50 mg by mouth. Wednesday, Wednesday and Wednesday - acetaminophen 325 mg cap Take 650 mg by mouth every 6 hours as needed. - Docusate Sodium 100 mg tab Take 100 mg by mouth once daily. - guaiFENesin (ROBITUSSIN) 100 mg/5 mL syrup Take 200 mg by mouth every 4 hours as needed. - nystatin (NYSTOP) powder Apply 1 application to affected area three times daily. - multivit,thx,calcium, iron,mins (MULTIVITAMIN AND MINERAL ORAL) Take by mouth once daily. - apixaban (ELIQUIS) 5 mg tab(s) Take 5 mg by mouth twice daily. Problem List As Of Date 09/07/2022 Noted Resolved Endometrial Cancer [C54.1] Rosacea [L71.9] 02/05/2010 Urinary Frequency [R35.0] 05/05/2010 Encounter Status:Closed by ALEXSANDRA ZAMARRIPA on 09/15/22 [facility] CNOVon 09-04-2022 CNOV Office Visit (GENSWS ) ELA JOHNSON ([id number]) 1940 F Date Time Provider Department 09/04/22 10:15 AM MENDEZ ENCISO During your visit today, we recorded the following information about you: Temperature Pulse Blood pressure 99 degrees 83/minute 121/81 Mendez Enciso III, MD 09/04/2022 11:09 AM Signed Patient is status post emergency surgery for incarcerated incisional hernia repair on 08/17/2020. Removed part of the sac send it off to pathology report came back as benign. She has been in a nursing facility regaining her strength. He is doing well she is moving her bowels has occasional diarrhea. She is no longer having any abdominal pains. And she is slowly improving. Subjective:Blood pressure 121/81, pulse 83, temperature 37.2 ?C (99 ?F). Incision is clean without signs of infection. There is no signs of cellulitis I do not see any signs of recurrence yet and there is no signs of any infection. Assessment: Aftercare Plan: Patient will follow-up with Carmelina Jackson in 1 month I do not want her to do any more leg lifts. Referring Provider: MENDEZ ENCISO [[id number]] Allergies As of Date: 09/04/2022 Noted Allergy Reaction SHELLFISH DERIVED 09/04/2022 7 - Swelling Comments: Patient states throat itches. ROSUVASTATIN 09/04/2022 17 - Myalgia SULFA (SULFONAMIDE ANTIBIOTICS) 09/04/2022 8 - GI Upset TRIMETHOPRIM 09/04/2022 16 - Unknown Date Reviewed: 09/04/2022 Reviewed by: Alexsandra Zamarripa RN - Fully Assessed Reason for Visit: Post Op Follow Up [3947] Cmt: Post-op incisional hernia repair, [facility] 08/24/22 Primary Visit Diagnosis:Aftercare [Z51.89] Prescriptions as of 09/04/2022 - amLODIPine (NORVASC) 5 mg tablet Take 5 mg by mouth once daily. - ascorbic acid, vitamin C, (VITAMIN C) 500 mg tablet Take 500 mg by mouth every other day. - Biotin 10,000 mcg cap Take by mouth. - Zinc Sulfate 50 mg zinc (220 mg) tab Take 50 mg by mouth. Wednesday, Wednesday and Wednesday - acetaminophen 325 mg cap Take 650 mg by mouth every 6 hours as needed. - Docusate Sodium 100 mg tab Take 100 mg by mouth once daily. - guaiFENesin (ROBITUSSIN) 100 mg/5 mL syrup Take 200 mg by mouth every 4 hours as needed. - nystatin (NYSTOP) powder Apply 1 application to affected area three times daily. - multivit,thx,calcium, iron,mins (MULTIVITAMIN AND MINERAL ORAL) Take by mouth once daily. - apixaban (ELIQUIS) 5 mg tab(s) Take 5 mg by mouth twice daily. Problem List As Of Date 09/04/2022 Noted Resolved Endometrial Cancer [C54.1] Rosacea [L71.9] 02/05/2010 Urinary Frequency [R35.0] 05/05/2010 Letter Text Encounter Status:Closed by MENDEZ ENCISO on 09/04/22 Normal [facility] CBC With Platelet and Differ entialon 10-08-2021 Ovalocytes 1+ Normal [facility] Poikilocytosis 1+ Normal [facility] Abs Imm Granulocytes 0.10 E9/L Normal [facility] Absolute Basophils 0.01 E9/L Normal 0.00-0.20 [facility] Absolute Eosinophils 0.00 E9/L Low 0.05-0.50 [facility] Absolute Lymphocytes 0.44 E9/L Low 1.50-4.00 [facility] Absolute Monocytes 0.66 E9/L Normal 0.10-0.95 [facility] Absolute Neutrophils 5.15 E9/L Normal 1.80-7.30 [facility] Basophils/100 WBC (Bld) 0.2 % Normal 0.0-2.0 [facility] Eosinophils/100 WBC (Bld) 0.0 % Normal 0.0-6.0 [facility] Hematocrit (Bld) [Volume fraction] 45.4 % Normal 34.0-48.0 [facility] Hemoglobin (Bld) [Mass/Vol] 14.2 g/dL Normal 11.5-15.5 [facility] Imm Granulocytes 1.6 % Normal 0.0-5.0 [facility] Lymphocytes/100 WBC (Bld) 6.9 % Low 20.0-42.0 [facility] MCH (RBC) [Entitic mass] 29.0 pg Normal 26.0-35.0 [facility] MCHC 31.3 % Low 32.0-34.5 [facility] MCV (RBC) [Entitic vol] 92.7 fL Normal 80.0-99.9 [facility] Monocytes/100 WBC (Bld) 10.4 % Normal 2.0-12.0 [facility] Neutrophils/100 WBC (Bld) 80.9 % High 43.0-80.0 [facility] Platelet Count 296 E9/L Normal 130-450 [facility] Platelet mean volume (Bld) [Entitic vol] 9.8 fL Normal 7.0-12.0 [facility] RBC 4.90 E12/L Normal 3.50-5.50 [facility] RDW 15.9 fL High 11.5-15.0 [facility] WBC 6.4 E9/L Normal 4.5-11.5 [facility] Magnesiumon 10-08-2021 Magnesium [Mass/Vol] 2.0 mg/dL Normal 1.6-2.6 [facility] Renal Function Panelon 10-08 Albumin [Mass/Vol] 2.9 g/dL Low 3.5-5.2 [facility] Anion gap [Moles/Vol] 10 mmol/L Normal 7-16 [facility] Calcium [Mass/Vol] 9.0 mg/dL Normal 8.6-10.2 [facility] Chloride [Moles/Vol] 101 mmol/L Normal 98-107 [facility] CO2 [Moles/Vol] 28 mmol/L Normal 22-29 [facility] Creatinine [Mass/Vol] 0.8 mg/dL Normal 0.5-1.0 [facility] GFR Calculated >60 Normal >=60 [facility] Comment on above: Result Comment: Change House Attendant elsa Kidney Disease: less than 60 ml/min/1.73 sq.m. Kidney Failure: less than 15 ml/min/1.73 sq.m. Results valid for patients 18 years and older. GFR/1.73 sq M.predicted among blacks MDRD (S/P/Bld) [Vol rate/Area] mL/min/{1.73_m2} Normal [facility] Glucose [Mass/Vol] 95 mg/dL Normal 74-99 [facility] Phosphate [Mass/Vol] 3.7 mg/dL Normal 2.5-4.5 [facility] Potassium [Moles/Vol] 4.6 mmol/L Normal 3.5-5.0 [facility] Sodium [Moles/Vol] 139 mmol/L Normal 132-146 [facility] Urea nitrogen [Mass/Vol] 30 mg/dL High 6-23 [facility] C-Reactive Proteinon 021 C-Reactive Protein 0.7 mg/dL High 0.0-0.4 [facility] CBC With Platelet and Differ entialon 10-05-2021 Absolute Basophils 0.00 E9/L Normal 0.00-0.20 [facility] Absolute Eosinophils 0.00 E9/L Low 0.05-0.50 [facility] Absolute Lymphocytes 0.50 E9/L Low 1.50-4.00 [facility] Absolute Monocytes 0.74 E9/L Normal 0.10-0.95 [facility] Absolute Neutrophils 4.96 E9/L Normal 1.80-7.30 [facility] Anisocytosis Ql (Bld) 1+ Normal [facility] Basophils/100 WBC (Bld) 0.2 % Normal 0.0-2.0 [facility] Eosinophils/100 WBC (Bld) 0.3 % Normal 0.0-6.0 [facility] Lymphocytes/100 WBC (Bld) 7.8 % Low 20.0-42.0 [facility] Monocytes/100 WBC (Bld) 12.2 % High 2.0-12.0 [facility] Neutrophils/100 WBC (Bld) 80.0 % Normal 43.0-80.0 [facility] Ovalocytes 1+ Normal [facility] Poikilocytosis 1+ Normal [facility] Hematocrit (Bld) [Volume fraction] 47.4 % Normal 34.0-48.0 [facility] Hemoglobin (Bld) [Mass/Vol] 14.9 g/dL Normal 11.5-15.5 [facility] MCH (RBC) [Entitic mass] 28.5 pg Normal 26.0-35.0 [facility] MCHC 31.4 % Low 32.0-34.5 [facility] MCV (RBC) [Entitic vol] 90.8 fL Normal 80.0-99.9 [facility] Platelet Count 301 E9/L Normal 130-450 [facility] Platelet mean volume (Bld) [Entitic vol] 10.2 fL Normal 7.0-12.0 [facility] RBC 5.22 E12/L Normal 3.50-5.50 [facility] RDW 16.2 fL High 11.5-15.0 [facility] WBC 6.2 E9/L Normal 4.5-11.5 [facility] Comprehensive Metabolic Pane mare 10-05-2021 Albumin [Mass/Vol] 3.6 g/dL Normal 3.5-5.2 [facility] ALP [Catalytic activity/Vol] 166 U/L High 35-104 [facility] ALT [Catalytic activity/Vol] 26 U/L Normal 0-32 [facility] Anion gap [Moles/Vol] 13 mmol/L Normal 7-16 [facility] AST [Catalytic activity/Vol] 18 U/L Normal 0-31 [facility] Bilirubin [Mass/Vol] 0.7 mg/dL Normal 0.0-1.2 [facility] Calcium [Mass/Vol] 9.4 mg/dL Normal 8.6-10.2 [facility] Chloride [Moles/Vol] 101 mmol/L Normal 98-107 [facility] CO2 [Moles/Vol] 27 mmol/L Normal 22-29 [facility] Creatinine [Mass/Vol] 0.8 mg/dL Normal 0.5-1.0 [facility] GFR Calculated >60 Normal >=60 [facility] Comment on above: Result Comment: Change House Attendant elsa Kidney Disease: less than 60 ml/min/1.73 sq.m. Kidney Failure: less than 15 ml/min/1.73 sq.m. Results valid for patients 18 years and older. GFR/1.73 sq M.predicted among blacks MDRD (S/P/Bld) [Vol rate/Area] mL/min/{1.73_m2} Normal [facility] Glucose [Mass/Vol] 89 mg/dL Normal 74-99 [facility] Potassium [Moles/Vol] 4.4 mmol/L Normal 3.5-5.0 [facility] Protein [Mass/Vol] 6.4 g/dL Normal 6.4-8.3 [facility] Sodium [Moles/Vol] 141 mmol/L Normal 132-146 [facility] Urea nitrogen [Mass/Vol] 26 mg/dL High 6-23 [facility] D-Dimer Quanton 10-05-2021 D-Dimer Quant 4748 ng/mL DDU Normal [facility] Comment on above: Result Comment: D-DI ZULEIMA Interpretation: < 230 ng/mL (D-DU) Indicates low probability for PE/DVT = 232 ng/mL (D-DU) Upper Limit of Normal >= 4000 ng/mL (D-DU) This level could suggest the presence of DIC. Clinical correlation may be helpful. Lactate Dehydrogenaseon 09-09 LDH [Catalytic activity/Vol] 237 U/L High 135-214 [facility] Comment on above: Result Comment: Spec imen is slightly Hemolyzed. Result may be artificially increased. Magnesiumon 10-05-2021 Magnesium [Mass/Vol] 2.1 mg/dL Normal 1.6-2.6 [facility] Procalcitoninon 10-05-2021 Procalcitonin 0.04 ng/mL Normal 0.00-0.08 [facility] Comment on above: Result Comment: Susp ected Sepsis: Low likelihood of sepsis <.50 ng/mL Increased likelihood of sepsis 0.50-2.00 ng/mL Antibiotics encouraged High risk of sepsis/shock >2.00 ng/mL Antibiotics strongly encouraged Suspected Lower Respiratory Tract Infections: Low likelihood of bacterial infection <0.24 ng/mL Increased likelihood of bacterial infection >0.24 ng/mL Antibiotics encouraged With successful antibiotic therapy, PCT levels should decrease rapidly. (Half-life of 24 to 36 hours.) Procalcitonin values from samples collected within the first 6 hours of systemic infection may still be low. Retesting may be indicated. Values from day 1 and day 4 can be entered into the Change in Procalcitonin Calculator to determine the patient's Mortality Risk Prognosis ([email or web address]) In healthy neonates, plasma Procalcitonin (PCT) concentrations increase gradually after , reaching peak values at about 24 hours of age then decrease to normal values below 0.5 ng/mL by 48-72 hours of age. Sedimentation Rateon 021 Sedimentation Rate 16 mm/Hr Normal 0-20 [facility] Comprehensive Metabolic Pane l reflex Mgon 10-03-2021 Albumin [Mass/Vol] 2.9 g/dL Low 3.5-5.2 [facility] ALP [Catalytic activity/Vol] 163 U/L High 35-104 [facility] ALT [Catalytic activity/Vol] 27 U/L Normal 0-32 [facility] Anion gap [Moles/Vol] 10 mmol/L Normal 7-16 [facility] AST [Catalytic activity/Vol] 24 U/L Normal 0-31 [facility] Bilirubin [Mass/Vol] 0.6 mg/dL Normal 0.0-1.2 [facility] Calcium [Mass/Vol] 8.3 mg/dL Low 8.6-10.2 [facility] Chloride [Moles/Vol] 105 mmol/L Normal 98-107 [facility] CO2 [Moles/Vol] 24 mmol/L Normal 22-29 [facility] Creatinine [Mass/Vol] 0.9 mg/dL Normal 0.5-1.0 [facility] GFR Calculated >60 Normal >=60 [facility] Comment on above: Result Comment: Change House Attendant elsa Kidney Disease: less than 60 ml/min/1.73 sq.m. Kidney Failure: less than 15 ml/min/1.73 sq.m. Results valid for patients 18 years and older. GFR/1.73 sq M.predicted among blacks MDRD (S/P/Bld) [Vol rate/Area] mL/min/{1.73_m2} Normal [facility] Glucose [Mass/Vol] 78 mg/dL Normal 74-99 [facility] Magnesium [Moles/Vol] 4.2 mmol/L Normal 3.5-5.0 [facility] Protein [Mass/Vol] 5.6 g/dL Low 6.4-8.3 [facility] Sodium [Moles/Vol] 139 mmol/L Normal 132-146 [facility] Urea nitrogen [Mass/Vol] 28 mg/dL High 6-23 [facility] Iron Profileon 10-03-2021 % Saturation 23 % Normal 15-50 [facility] Iron [Mass/Vol] 61 ug/dL Normal 37-145 [facility] Iron Binding Capacity 264 mcg/dL Normal 250-450 [facility] Magnesiumon 10-03-2021 Magnesium [Mass/Vol] 2.0 mg/dL Normal 1.6-2.6 [facility] Vitamin B12 and Folateon Cobalamin (Vitamin B12) [Mass/Vol] 1692 pg/mL High 211-946 [facility] Folate 6.0 ng/mL Normal 4.8-24.2 [facility] Vitamin D, 25-hydroxyon 09-09 Vitamin D, 25-hydroxy 21 ng/mL Low 30-100 [facility] Comment on above: Result Comment: <20 ng/mL.............Deficient 20-30 ng/mL...........Insufficient 30-100 ng/mL..........Sufficient >100 ng/mL............Toxic CBC With Platelet and Differ entialon 10-02-2021 RBC morphology finding Nom (Bld) Normal Normal [facility] Abs Imm Granulocytes 0.12 E9/L Normal [facility] Absolute Basophils 0.01 E9/L Normal 0.00-0.20 [facility] Absolute Eosinophils 0.00 E9/L Low 0.05-0.50 [facility] Absolute Lymphocytes 0.36 E9/L Low 1.50-4.00 [facility] Absolute Monocytes 0.61 E9/L Normal 0.10-0.95 [facility] Absolute Neutrophils 4.53 E9/L Normal 1.80-7.30 [facility] Basophils/100 WBC (Bld) 0.2 % Normal 0.0-2.0 [facility] Eosinophils/100 WBC (Bld) 0.0 % Normal 0.0-6.0 [facility] Hematocrit (Bld) [Volume fraction] 45.2 % Normal 34.0-48.0 [facility] Hemoglobin (Bld) [Mass/Vol] 14.4 g/dL Normal 11.5-15.5 [facility] Imm Granulocytes 2.1 % Normal 0.0-5.0 [facility] Lymphocytes/100 WBC (Bld) 6.4 % Low 20.0-42.0 [facility] MCH (RBC) [Entitic mass] 29.2 pg Normal 26.0-35.0 [facility] MCHC 31.9 % Low 32.0-34.5 [facility] MCV (RBC) [Entitic vol] 91.7 fL Normal 80.0-99.9 [facility] Monocytes/100 WBC (Bld) 10.8 % Normal 2.0-12.0 [facility] Neutrophils/100 WBC (Bld) 80.5 % High 43.0-80.0 [facility] Platelet Count 313 E9/L Normal 130-450 [facility] Platelet mean volume (Bld) [Entitic vol] 8.9 fL Normal 7.0-12.0 [facility] RBC 4.93 E12/L Normal 3.50-5.50 [facility] RDW 16.2 fL High 11.5-15.0 [facility] WBC 5.6 E9/L Normal 4.5-11.5 [facility] Comprehensive Metabolic Pane l reflex Mgon 10-02-2021 Albumin [Mass/Vol] 3.1 g/dL Low 3.5-5.2 [facility] ALP [Catalytic activity/Vol] 187 U/L High 35-104 [facility] ALT [Catalytic activity/Vol] 28 U/L Normal 0-32 [facility] Anion gap [Moles/Vol] 9 mmol/L Normal 7-16 [facility] AST [Catalytic activity/Vol] 30 U/L Normal 0-31 [facility] Bilirubin [Mass/Vol] 0.5 mg/dL Normal 0.0-1.2 [facility] Calcium [Mass/Vol] 8.6 mg/dL Normal 8.6-10.2 [facility] Chloride [Moles/Vol] 106 mmol/L Normal 98-107 [facility] CO2 [Moles/Vol] 24 mmol/L Normal 22-29 [facility] Creatinine [Mass/Vol] 0.8 mg/dL Normal 0.5-1.0 [facility] GFR Calculated >60 Normal >=60 [facility] Comment on above: Result Comment: Change House Attendant elsa Kidney Disease: less than 60 ml/min/1.73 sq.m. Kidney Failure: less than 15 ml/min/1.73 sq.m. Results valid for patients 18 years and older. GFR/1.73 sq M.predicted among blacks MDRD (S/P/Bld) [Vol rate/Area] mL/min/{1.73_m2} Normal [facility] Glucose [Mass/Vol] 98 mg/dL Normal 74-99 [facility] Magnesium [Moles/Vol] 4.8 mmol/L Normal 3.5-5.0 [facility] Protein [Mass/Vol] 5.9 g/dL Low 6.4-8.3 [facility] Sodium [Moles/Vol] 139 mmol/L Normal 132-146 [facility] Urea nitrogen [Mass/Vol] 28 mg/dL High 6-23 [facility] TSH w/out Reflexon 1 TSH w/out Reflex 0.737 uIU/mL Normal 0.270-4.200 [facility] C-Reactive Proteinon 021 C-Reactive Protein 3.1 mg/dL High 0.0-0.4 [facility] CBC With Platelet and Differ entialon 09-30-2021 Anisocytosis Ql (Bld) 1+ Normal [facility] Ovalocytes 1+ Normal [facility] Poikilocytosis 1+ Normal [facility] Polychromasia 1+ Normal [facility] Tear Drop Cells 1+ Normal [facility] Abs Imm Granulocytes 0.17 E9/L Normal [facility] Absolute Basophils 0.01 E9/L Normal 0.00-0.20 [facility] Absolute Eosinophils 0.00 E9/L Low 0.05-0.50 [facility] Absolute Lymphocytes 0.34 E9/L Low 1.50-4.00 [facility] Absolute Monocytes 0.46 E9/L Normal 0.10-0.95 [facility] Absolute Neutrophils 3.73 E9/L Normal 1.80-7.30 [facility] Basophils/100 WBC (Bld) 0.2 % Normal 0.0-2.0 [facility] Eosinophils/100 WBC (Bld) 0.0 % Normal 0.0-6.0 [facility] Hematocrit (Bld) [Volume fraction] 42.0 % Normal 34.0-48.0 [facility] Hemoglobin (Bld) [Mass/Vol] 13.4 g/dL Normal 11.5-15.5 [facility] Imm Granulocytes 3.6 % Normal 0.0-5.0 [facility] Lymphocytes/100 WBC (Bld) 7.2 % Low 20.0-42.0 [facility] MCH (RBC) [Entitic mass] 28.2 pg Normal 26.0-35.0 [facility] MCHC 31.9 % Low 32.0-34.5 [facility] MCV (RBC) [Entitic vol] 88.2 fL Normal 80.0-99.9 [facility] Monocytes/100 WBC (Bld) 9.8 % Normal 2.0-12.0 [facility] Neutrophils/100 WBC (Bld) 79.2 % Normal 43.0-80.0 [facility] Platelet Count 277 E9/L Normal 130-450 [facility] Platelet mean volume (Bld) [Entitic vol] 8.7 fL Normal 7.0-12.0 [facility] RBC 4.76 E12/L Normal 3.50-5.50 [facility] RDW 16.8 fL High 11.5-15.0 [facility] WBC 4.7 E9/L Normal 4.5-11.5 [facility] Comprehensive Metabolic Pane l reflex Mgon 09-30-2021 Albumin [Mass/Vol] 2.9 g/dL Low 3.5-5.2 [facility] ALP [Catalytic activity/Vol] 219 U/L High 35-104 [facility] ALT [Catalytic activity/Vol] 16 U/L Normal 0-32 [facility] Anion gap [Moles/Vol] 10 mmol/L Normal 7-16 [facility] AST [Catalytic activity/Vol] 24 U/L Normal 0-31 [facility] Bilirubin [Mass/Vol] 0.5 mg/dL Normal 0.0-1.2 [facility] Calcium [Mass/Vol] 9.0 mg/dL Normal 8.6-10.2 [facility] Chloride [Moles/Vol] 111 mmol/L High 98-107 [facility] CO2 [Moles/Vol] 26 mmol/L Normal 22-29 [facility] Creatinine [Mass/Vol] 0.9 mg/dL Normal 0.5-1.0 [facility] GFR Calculated >60 Normal >=60 [facility] Comment on above: Result Comment: Change House Attendant elsa Kidney Disease: less than 60 ml/min/1.73 sq.m. Kidney Failure: less than 15 ml/min/1.73 sq.m. Results valid for patients 18 years and older. GFR/1.73 sq M.predicted among blacks MDRD (S/P/Bld) [Vol rate/Area] mL/min/{1.73_m2} Normal [facility] Glucose [Mass/Vol] 128 mg/dL High 74-99 [facility] Magnesium [Moles/Vol] 4.7 mmol/L Normal 3.5-5.0 [facility] Protein [Mass/Vol] 6.6 g/dL Normal 6.4-8.3 [facility] Sodium [Moles/Vol] 147 mmol/L High 132-146 [facility] Urea nitrogen [Mass/Vol] 24 mg/dL High 6-23 [facility] D-Dimer Quanton 09-30-2021 D-Dimer Quant 2101 ng/mL DDU Normal [facility] Comment on above: Result Comment: D-DI ZULEIMA Interpretation: < 230 ng/mL (D-DU) Indicates low probability for PE/DVT = 232 ng/mL (D-DU) Upper Limit of Normal >= 4000 ng/mL (D-DU) This level could suggest the presence of DIC. Clinical correlation may be helpful. Fibrinogenon 09-30-2021 Fibrinogen 468 mg/dL Normal 225-540 [facility] High Sensitivity Troponin To n 09-30-2021 High Sensitivity Troponin T 13 ng/L High 0-9 [facility] Comment on above: Result Comment: High Sensitivity Troponin values cannot be compared with other Troponin methodologies. Patients with high levels of Biotin oral intake (i.e. >5 mg/day) may have falsely decreased Troponin levels. Samples collected within 8 hours of biotin intake may require additional information for diagnosis. Lactic Acidon 09-30-2021 Lactate [Moles/Vol] 1.2 mmol/L Normal 0.5-2.2 [facility] C-Reactive Proteinon 021 C-Reactive Protein 5.5 mg/dL High 0.0-0.4 [facility] D-Dimer Quanton 09-29-2021 D-Dimer Quant 3243 ng/mL DDU Normal [facility] Comment on above: Result Comment: D-DI ZULEIMA Interpretation: < 230 ng/mL (D-DU) Indicates low probability for PE/DVT = 232 ng/mL (D-DU) Upper Limit of Normal >= 4000 ng/mL (D-DU) This level could suggest the presence of DIC. Clinical correlation may be helpful. Ferritinon 09-29-2021 Ferritin [Mass/Vol] 74 ng/mL Normal [facility] Comment on above: Result Comment: FERR ITIN Reference Ranges: Adult Males 20 - 60 years: 30 - 400 ng/mL Adult females 17 - 60 years: 13 - 150 ng/mL Adults greater than 60 years: no established reference range Pediatrics: no established reference range Lactate Dehydrogenaseon 09-09 LDH [Catalytic activity/Vol] 351 U/L High 135-214 [facility] Comment on above: Result Comment: Spec imen is slightly Hemolyzed. Result may be artificially increased. Procalcitoninon 09-29-2021 Procalcitonin 0.07 ng/mL Normal 0.00-0.08 [facility] Comment on above: Result Comment: Susp ected Sepsis: Low likelihood of sepsis <.50 ng/mL Increased likelihood of sepsis 0.50-2.00 ng/mL Antibiotics encouraged High risk of sepsis/shock >2.00 ng/mL Antibiotics strongly encouraged Suspected Lower Respiratory Tract Infections: Low likelihood of bacterial infection <0.24 ng/mL Increased likelihood of bacterial infection >0.24 ng/mL Antibiotics encouraged With successful antibiotic therapy, PCT levels should decrease rapidly. (Half-life of 24 to 36 hours.) Procalcitonin values from samples collected within the first 6 hours of systemic infection may still be low. Retesting may be indicated. Values from day 1 and day 4 can be entered into the Change in Procalcitonin Calculator to determine the patient's Mortality Risk Prognosis ([email or web address]) In healthy neonates, plasma Procalcitonin (PCT) concentrations increase gradually after , reaching peak values at about 24 hours of age then decrease to normal values below 0.5 ng/mL by 48-72 hours of age. BNPon 09-28-2021 Natriuretic peptide B (Bld) [Mass/Vol] 441 pg/mL Normal 0-450 [facility] C-Reactive Proteinon 021 C-Reactive Protein 7.1 mg/dL High 0.0-0.4 [facility] CBC With Platelet and Differ entialon 09-28-2021 Absolute Basophils 0.00 E9/L Normal 0.00-0.20 [facility] Absolute Eosinophils 0.03 E9/L Low 0.05-0.50 [facility] Absolute Lymphocytes 0.38 E9/L Low 1.50-4.00 [facility] Absolute Monocytes 0.38 E9/L Normal 0.10-0.95 [facility] Absolute Neutrophils 3.00 E9/L Normal 1.80-7.30 [facility] Anisocytosis Ql (Bld) 2+ Normal [facility] Basophils/100 WBC (Bld) 0.8 % Normal 0.0-2.0 [facility] Eosinophils/100 WBC (Bld) 0.9 % Normal 0.0-6.0 [facility] Lymphocytes/100 WBC (Bld) 9.6 % Low 20.0-42.0 [facility] Monocytes/100 WBC (Bld) 10.4 % Normal 2.0-12.0 [facility] Neutrophils/100 WBC (Bld) 79.1 % Normal 43.0-80.0 [facility] Nucleated RBC 0.9 /100 WBC Normal [facility] Ovalocytes 1+ Normal [facility] Poikilocytosis 1+ Normal [facility] Polychromasia 1+ Normal [facility] Hematocrit (Bld) [Volume fraction] 44.7 % Normal 34.0-48.0 [facility] Hemoglobin (Bld) [Mass/Vol] 14.2 g/dL Normal 11.5-15.5 [facility] MCH (RBC) [Entitic mass] 28.9 pg Normal 26.0-35.0 [facility] MCHC 31.8 % Low 32.0-34.5 [facility] MCV (RBC) [Entitic vol] 91.0 fL Normal 80.0-99.9 [facility] Platelet Count 246 E9/L Normal 130-450 [facility] Platelet mean volume (Bld) [Entitic vol] 8.8 fL Normal 7.0-12.0 [facility] RBC 4.91 E12/L Normal 3.50-5.50 [facility] RDW 17.0 fL High 11.5-15.0 [facility] WBC 3.8 E9/L Low 4.5-11.5 [facility] COVID-19on 09-28-2021 SARS-CoV-2 (COVID-19) RNA GUILLERMINA+probe Ql (Unsp spec) Detected Abnormal Not Detected [facility] Comment on above: Result Comment: Zeeshan austin NAAT: Negative results should be treated as presumptive and, if inconsistent with clinical signs and symptoms or necessary for patient management, should be tested with an alternative molecular assay. Negative results do not preclude SARS-CoV-2 infection and should not be used as the sole basis for patient management decisions. This test has been authorized by the FDA under an Emergency Use Authorization (EUA) for use by authorized laboratories. Fact sheet for Healthcare Providers: https://www.fda.gov/media/465699/download Fact sheet for Patients: https://www.fda.gov/media/044594/download METHODOLOGY: Isothermal Nucleic Acid Amplification CTA CHEST W CONTRASTon 09-28 CTA CHEST W CONTRAST EXAMINATION: CTA OF THE CHEST 09/28/2021 8:13 pm TECHNIQUE: CTA of the chest was performed after the administration of intravenous contrast. Multiplanar reformatted images are provided for review. MIP images are provided for review. Dose modulation, iterative reconstruction, and/or weight based adjustment of the mA/kV was utilized to reduce the radiation dose to as low as reasonably achievable. COMPARISON: None. HISTORY: ORDERING SYSTEM PROVIDED HISTORY: r/o pe TECHNOLOGIST PROVIDED HISTORY: Reason for exam:->r/o pe Decision Support Exception - unselect if not a suspected or confirmed emergency medical condition->Emergency Medical Condition (MA) What reading provider will be dictating this exam?->CRC FINDINGS: Pulmonary Arteries: Limited evaluation of the distal pulmonary arteries involving both lower lobes due to artifact. No evidence of intraluminal filling defect to suggest pulmonary embolism. Dilated main pulmonary arteries. Correlate with pulmonary artery hypertension clinically. Mediastinum: Mediastinal lymphadenopathy. Cardiomegaly. There is no acute abnormality of the thoracic aorta. Lungs/pleura: Diffuse bilateral infiltrates.. No evidence of pleural effusion or pneumothorax. Upper Abdomen: Cholelithiasis. Partially visualized aortic endograft stent. Soft Tissues/Bones: No acute bone or soft tissue abnormality. Degenerative changes thoracic spine. IMPRESSION: No evidence of pulmonary embolism. Limited evaluation of the distal pulmonary artery branch vessels to both lower lobes secondary to phase artifact. Diffuse and bilateral infiltrates consistent with pneumonia and more specifically COVID related pneumonia. Cholelithiasis. Interpreted by: Faustino Polanco MD Signed by: Faustino Polanco MD 09/28/21 Final result Normal [facility] Comment on above: Order Comment: Reaso n for exam:->r/o peDecision Support Exception - unselect if not a suspected or confirmed emergency medical condition->Emergency Medical Condition (MA)What reading provider will be dictating this exam?->CRC Comprehensive Metabolic Pane l reflex Mgon 09-28-2021 Albumin [Mass/Vol] 3.0 g/dL Low 3.5-5.2 [facility] ALP [Catalytic activity/Vol] 252 U/L High 35-104 [facility] ALT [Catalytic activity/Vol] 18 U/L Normal 0-32 [facility] Anion gap [Moles/Vol] 11 mmol/L Normal 7-16 [facility] AST [Catalytic activity/Vol] 35 U/L High 0-31 [facility] Bilirubin [Mass/Vol] 0.5 mg/dL Normal 0.0-1.2 [facility] Calcium [Mass/Vol] 9.6 mg/dL Normal 8.6-10.2 [facility] Chloride [Moles/Vol] 106 mmol/L Normal 98-107 [facility] CO2 [Moles/Vol] 28 mmol/L Normal 22-29 [facility] Creatinine [Mass/Vol] 1.1 mg/dL High 0.5-1.0 [facility] GFR/1.73 sq M.predicted among blacks MDRD (S/P/Bld) [Vol rate/Area] 58 mL/min/{1.73_m2} Normal [facility] GFR/1.73 sq M.predicted among non-blacks MDRD (S/P/Bld) [Vol rate/Area] 48 mL/min/{1.73_m2} Normal >=60 [facility] Comment on above: Result Comment: Change House Attendant elsa Kidney Disease: less than 60 ml/min/1.73 sq.m. Kidney Failure: less than 15 ml/min/1.73 sq.m. Results valid for patients 18 years and older. Glucose [Mass/Vol] 119 mg/dL High 74-99 [facility] Magnesium [Moles/Vol] 4.4 mmol/L Normal 3.5-5.0 [facility] Protein [Mass/Vol] 7.2 g/dL Normal 6.4-8.3 [facility] Sodium [Moles/Vol] 145 mmol/L Normal 132-146 [facility] Urea nitrogen [Mass/Vol] 23 mg/dL Normal 6-23 [facility] Culture, Bloodon 09-28-2021 Microscopic examination of blood, culture Culture, Blood-: 5 Days no growth Normal [facility] Culture, Blood 2on 1 Culture, Blood 2 CALL [facility] tel. , Microbiology results called to and read back by Aminah Villanueva RN, 10/03/2021 08:23, by [facility] Culture, Blood 2-: Anaerobic Diphtheroids This organism was isolated in one set. Susceptibility testing is not routinely done as this organism frequently represents skin contamination. Additional testing can be ordered by calling the Microbiology Department. Beta Lactamase negative A negative Beta Lactamase test does not necessarily assure susceptibility to this drug. Normal [facility] D-Dimer Quanton 09-28-2021 D-Dimer Quant 1745 ng/mL DDU Normal [facility] Comment on above: Result Comment: D-DI ZULEIMA Interpretation: < 230 ng/mL (D-DU) Indicates low probability for PE/DVT = 232 ng/mL (D-DU) Upper Limit of Normal >= 4000 ng/mL (D-DU) This level could suggest the presence of DIC. Clinical correlation may be helpful. Ferritinon 09-28-2021 Ferritin [Mass/Vol] 99 ng/mL Normal [facility] Comment on above: Result Comment: FERR ITIN Reference Ranges: Adult Males 20 - 60 years: 30 - 400 ng/mL Adult females 17 - 60 years: 13 - 150 ng/mL Adults greater than 60 years: no established reference range Pediatrics: no established reference range High Sensitivity Troponin To n 09-28-2021 High Sensitivity Troponin T 17 ng/L High 0-9 [facility] Comment on above: Result Comment: High Sensitivity Troponin values cannot be compared with other Troponin methodologies. Patients with high levels of Biotin oral intake (i.e. >5 mg/day) may have falsely decreased Troponin levels. Samples collected within 8 hours of biotin intake may require additional information for diagnosis. High Sensitivity Troponin T 15 ng/L High 0-9 [facility] Comment on above: Result Comment: High Sensitivity Troponin values cannot be compared with other Troponin methodologies. Patients with high levels of Biotin oral intake (i.e. >5 mg/day) may have falsely decreased Troponin levels. Samples collected within 8 hours of biotin intake may require additional information for diagnosis. Lactate, Sepsison 09-28-2021 Lactate, Sepsis 1.0 mmol/L Normal 0.5-1.9 [facility] Lactate, Sepsis 1.6 mmol/L Normal 0.5-1.9 [facility] Sedimentation Rateon 021 Sedimentation Rate 45 mm/Hr High 0-20 [facility] XR CHEST PORTABLEon 09-28-20 XR CHEST PORTABLE EXAMINATION: ONE XRAY VIEW OF THE CHEST 09/28/2021 4:50 pm COMPARISON: None. HISTORY: ORDERING SYSTEM PROVIDED HISTORY: short of breath TECHNOLOGIST PROVIDED HISTORY: Reason for exam:->short of breath What reading provider will be dictating this exam?->CRC FINDINGS: Patchy airspace opacities throughout both lungs. No pleural effusion. The heart appears mildly enlarged. No pneumothorax. IMPRESSION: Patchy airspace opacities throughout both lungs related to bilateral pneumonia or interstitial pulmonary edema. Interpreted by: Joao Rose DO Signed by: Joao Rose DO 09/28/21 Final result Normal [facility] Comment on above: Order Comment: Reaso n for exam:->short of breath What reading provider will be dictating this exam?->CRC Vital Signs Date Time Vital Sign Value Performing Clinician Faci axel 07-27-2023 08:01-0400 Body temperature 97.39 [degF] Mendez Enciso MD Work Phone: [facility] 07-27-2023 08:01-0400 Body weight 89.81 kg Mendez Enciso MD Work Phone: [facility] 07-27-2023 08:01-0400 Diastolic blood pressure 74 mm[Hg] Mendez Enciso MD Work Phone: [facility] 07-27-2023 08:01-0400 Heart rate 100 /min Mendez Enciso MD Work Phone: [facility] 07-27-2023 08:01-0400 SaO2% (BldA) [Mass fraction] 94 % Mendez Enciso MD Work Phone: [facility] 07-27-2023 08:01-0400 Systolic blood pressure 122 mm[Hg] Mendez Enciso MD Work Phone: [facility] 06-21-2023 08:00-0400 Body height 162.6 cm Pacc 1 Work Phone: [facility] 06-21-2023 08:00-0400 Body temperature 97.7 [degF] Pacc 1 Work Phone: [facility] 06-21-2023 08:00-0400 Body weight 89.36 kg Pacc 1 Work Phone: [facility] 06-21-2023 08:00-0400 Diastolic blood pressure 76 mm[Hg] Pacc 1 Work Phone: [facility] 06-21-2023 08:00-0400 Heart rate 77 /min Pacc 1 Work Phone: [facility] 06-21-2023 08:00-0400 Respiratory rate 14 /min Pacc 1 Work Phone: [facility] 06-21-2023 08:00-0400 SaO2% (BldA) [Mass fraction] 91 % Pacc 1 Work Phone: [facility] 06-21-2023 08:00-0400 Systolic blood pressure 124 mm[Hg] Pacc 1 Work Phone: [facility] 05-17-2023 13:59-0400 Body temperature 97.5 [degF] Mendez Enciso MD Work Phone: [facility] 05-17-2023 13:59-0400 Body weight 91.44 kg Mendez Enciso MD Work Phone: [facility] 05-17-2023 13:59-0400 Diastolic blood pressure 76 mm[Hg] Mendez Enciso MD Work Phone: [facility] 05-17-2023 13:59-0400 Heart rate 78 /min Mendez Enciso MD Work Phone: [facility] 05-17-2023 13:59-0400 SaO2% (BldA) [Mass fraction] 91 % Mendez Enciso MD Work Phone: [facility] 05-17-2023 13:59-0400 Systolic blood pressure 142 mm[Hg] Mendez Enciso MD Work Phone: [facility] 10-05-2022 13:47-0500 Body temperature 97.7 [degF] Mendez Enciso MD Work Phone: [facility] 10-05-2022 13:47-0500 Body weight 86.18 kg Mendez Enciso MD Work Phone: [facility] 10-05-2022 13:47-0500 Diastolic blood pressure 74 mm[Hg] Mendez Enciso MD Work Phone: [facility] 10-05-2022 13:47-0500 Heart rate 105 /min Mendez Enciso MD Work Phone: [facility] 10-05-2022 13:47-0500 SaO2% (BldA) [Mass fraction] 94 % Mendez Enciso MD Work Phone: [facility] 10-05-2022 13:47-0500 Systolic blood pressure 122 mm[Hg] Mendez Enciso MD Work Phone: [facility] 09-04-2022 10:17-0400 Body temperature 99 [degF] Mendez Enciso MD Work Phone: [facility] 09-04-2022 10:17-0400 Diastolic blood pressure 81 mm[Hg] Mendez Enciso MD Work Phone: [facility] 09-04-2022 10:17-0400 Heart rate 83 /min Mendez Enciso MD Work Phone: [facility] 09-04-2022 10:170400 Systolic blood pressure 121 mm[Hg] Mendez Enciso MD Work Phone: [facility] Encounters Encounter Date Encounter Type Care Provider Facility Start: 07-27-2023 End: 07-28-2023 ambulatory MENDEZ ENCISO Facility:[facility] Start: 07-27-2023 End: 07-27-2023 Patient encounter procedure Mendez Enciso MD Work Phone: General Surgery Comment on above: Aftercare (Primary D x) Start: 07-07-2023 Telephone encounter Mendez morrison MD Work Phone: General Surgery Start: 07-02-2023 End: 07-02-2023 ambulatory MENDEZ ENCISO Facility:[facility] Start: 06-21-2023 Encounter for other preprocedural examination LINDSAY TONEY [facility] Start: 06-21-2023 End: 06-21-2023 Admission to establishment [facility] 1 Work Phone: [facility] Start: 06-21-2023 End: 06-22-2023 ambulatory [facility] 1 Work Phone: Pre Anesthesia Comment on above: Pre-operative examin ation (Primary Dx); Endometrial cancer (HCC); Essential hypertension, benign; Mixed hyperlipidemia; Mixed stress and urge urinary incontinence; Bilateral leg edema; History of severe acute respiratory syndrome coronavirus 2 (SARS-CoV-2) disease; Incomplete RBBB Start: 06-21-2023 End: 06-21-[address] [facility] 1 Work Phone: [facility] Work Phone: Start: 05-17-2023 End: 05-17-2023 ambulatory ANNA JUAREZ Facility:[facility] Start: 05-17-2023 End: 05-17-2023 Patient encounter procedure Mendez Enciso MD Work Phone: General Surgery Comment on above: Recurrent incisional hernia (Primary Dx) Start: 05-12-2023 End: 05-12-2023 Subsequent hospital visit by physician Ct Prep [facility] Comment on above: Incisional hernia wi thout obstruction or gangrene [K43.2] Recurrent incisional hernia [K43.2] Start: 05-12-2023 End: 05-13-2023 ambulatory MENDEZ ENCISO Facility:[facility] Start: 05-12-2023 ambulatory MENDEZ ENCISO Facili ty:[facility] Start: 04-20-2023 End: 04-20-2023 ambulatory [facility] Facility:[facility] Start: 10-05-2022 End: 10-05-2022 ambulatory [facility] Facility:[facility] Start: 10-05-2022 End: 10-05-2022 Patient encounter procedure Mendez Enciso MD Work Phone: General Surgery Comment on above: Aftercare (Primary D x) Start: 09-04-2022 End: 09-04-2022 ambulatory MENDEZ ENCISO Facility:[facility] Start: 09-04-2022 End: 09-04-2022 Patient encounter procedure Mendez Enciso MD Work Phone: General Surgery Comment on above: Aftercare (Primary D x) Start: 09-28-2021 End: 10-08-2021 Evaluation and management of inpatient ALLAN O AJIBADE [facility] Procedures Date Procedure Procedure Detail Performing Clinician Start: 06-21-2023 Ecg routine ecg w/le ast 12 lds i&r only [facility] Provider Start: 10-08-2021 INCENTIVE SPIROMETRY RT ALLAN AJIBADE Start: 10-08-2021 INCENTIVE SPIROMETRY RT ALLAN AJIBADE Start: 10-08-2021 INCENTIVE SPIROMETRY RT ALLAN AJIBADE Start: 10-08-2021 INCENTIVE SPIROMETRY RT ALLAN AJIBADE Start: 10-08-2021 DISCHARGE PATIENT TEMIT OPE AJIBADE Start: 10-08-2021 INCENTIVE SPIROMETRY RT ALLAN AJIBADE Start: 10-08-2021 INCENTIVE SPIROMETRY RT ALLAN AJIBADE Start: 10-08-2021 INCENTIVE SPIROMETRY RT ALLAN AJIBADE Start: 10-08-2021 INITIATE OXYGEN THER APY PROTOCOL ALLAN AJIBADE Start: 10-08-2021 PEP/FLUTTER ALLAN A JIBADE Start: 10-08-2021 Blood count complete auto&auto difrntl wbc ALLAN AJIBADE Start: 10-08-2021 INCENTIVE SPIROMETRY RT ALLAN AJIBADE Start: 10-08-2021 INCENTIVE SPIROMETRY RT ALLAN AJIBADE Start: 10-07-2021 INCENTIVE SPIROMETRY RT ALLAN AJIBADE Start: 10-07-2021 INCENTIVE SPIROMETRY RT ALLAN AJIBADE Start: 10-07-2021 INCENTIVE SPIROMETRY RT ALLAN AJIBADE Start: 10-07-2021 INCENTIVE SPIROMETRY RT ALLAN AJIBADE Start: 10-07-2021 INCENTIVE SPIROMETRY RT ALLAN AJIBADE Start: 10-07-2021 INCENTIVE SPIROMETRY RT ALLAN AJIBADE Start: 10-07-2021 INCENTIVE SPIROMETRY RT ALLAN AJIBADE Start: 10-07-2021 INITIATE OXYGEN THER APY PROTOCOL ALLAN AJIBADE Start: 10-07-2021 PEP/FLUTTER ALLAN A JIBADE Start: 10-07-2021 INCENTIVE SPIROMETRY RT ALLAN AJIBADE Start: 10-07-2021 INCENTIVE SPIROMETRY RT ALLAN AJIBADE Start: 10-06-2021 INCENTIVE SPIROMETRY RT ALLAN AJIBADE Start: 10-06-2021 INCENTIVE SPIROMETRY RT ALLAN AJIBADE Start: 10-06-2021 INCENTIVE SPIROMETRY RT ALLAN AJIBADE Start: 10-06-2021 INCENTIVE SPIROMETRY RT ALLAN AJIBADE Start: 10-06-2021 INCENTIVE SPIROMETRY RT ALLAN AJIBADE Start: 10-06-2021 INCENTIVE SPIROMETRY RT ALLAN AJIBADE Start: 10-06-2021 INCENTIVE SPIROMETRY RT ALLAN AJIBADE Start: 10-06-2021 INITIATE OXYGEN THER APY PROTOCOL ALLAN AJIBADE Start: 10-06-2021 PEP/FLUTTER ALLAN A JIBADE Start: 10-06-2021 INCENTIVE SPIROMETRY RT ALLAN AJIBADE Start: 10-06-2021 INCENTIVE SPIROMETRY RT ALLAN AJIBADE Start: 10-05-2021 INCENTIVE SPIROMETRY RT ALLAN AJIBADE Start: 10-05-2021 INCENTIVE SPIROMETRY RT ALLAN AJIBADE Start: 10-05-2021 INCENTIVE SPIROMETRY RT ALLAN AJIBADE Start: 10-05-2021 INCENTIVE SPIROMETRY RT ALLAN AJIBADE Start: 10-05-2021 INCENTIVE SPIROMETRY RT ALLAN AJIBADE Start: 10-05-2021 INCENTIVE SPIROMETRY RT ALLAN AJIBADE Start: 10-05-2021 C-reactive protein GALINA MELLY AJIBADE Start: 10-05-2021 Comprehensive metabolic panel ALLAN AJIBADE Start: 10-05-2021 NURSING COMMUNICATION T EMITOPE AJIBADE Start: 10-05-2021 PEP/FLUTTER ALLAN A JIBADE Start: 10-05-2021 INCENTIVE SPIROMETRY RT ALLAN AJIBADE Start: 10-05-2021 INITIATE OXYGEN THER APY PROTOCOL ALLAN AJIBADE Start: 10-05-2021 INCENTIVE SPIROMETRY RT ALLAN AJIBADE Start: 10-05-2021 INCENTIVE SPIROMETRY RT ALLAN AJIBADE Start: 10-04-2021 INCENTIVE SPIROMETRY RT ALLAN AJIBADE Start: 10-04-2021 INCENTIVE SPIROMETRY RT ALLAN AJIBADE Start: 10-04-2021 INCENTIVE SPIROMETRY RT ALLAN AJIBADE Start: 10-04-2021 INCENTIVE SPIROMETRY RT ALLAN AJIBADE Start: 10-04-2021 INCENTIVE SPIROMETRY RT ALLAN AJIBADE Start: 10-04-2021 INCENTIVE SPIROMETRY RT ALLAN AJIBADE Start: 10-04-2021 CHECK PULSE OXIMETRY WHILE AMBULATING ALLAN AJIBADE Start: 10-04-2021 INCENTIVE SPIROMETRY RT ALLAN AJIBADE Start: 10-04-2021 INITIATE OXYGEN THER APY PROTOCOL ALLAN AJIBADE Start: 10-04-2021 PEP/FLUTTER ALLAN A JIBADE Start: 10-04-2021 INCENTIVE SPIROMETRY RT ALLAN AJIBADE Start: 10-04-2021 INCENTIVE SPIROMETRY RT ALLAN AJIBADE Start: 10-03-2021 INCENTIVE SPIROMETRY RT ALLAN AJIBADE Start: 10-03-2021 INCENTIVE SPIROMETRY RT ALLAN AJIBADE Start: 10-03-2021 INCENTIVE SPIROMETRY RT ALLAN AJIBADE Start: 10-03-2021 ADULT ORAL NUTRITION SUPPLEMENT ALLAN AJIBADE Start: 10-03-2021 INCENTIVE SPIROMETRY RT ALLAN AJIBADE Start: 10-03-2021 IP CONSULT TO DIETITIAN ALLAN AJIBADE Start: 10-03-2021 INCENTIVE SPIROMETRY RT ALLAN AJIBADE Start: 10-03-2021 INCENTIVE SPIROMETRY RT ALLAN AJIBADE Start: 10-03-2021 INCENTIVE SPIROMETRY RT ALLAN AJIBADE Start: 10-03-2021 INITIATE OXYGEN THER APY PROTOCOL ALLAN AJIBADE Start: 10-03-2021 PEP/FLUTTER ALLAN A JIBADE Start: 10-03-2021 Blood count complete auto&auto difrntl wbc ALLAN AJIBADE Start: 10-03-2021 INCENTIVE SPIROMETRY RT ALLAN AJIBADE Start: 10-03-2021 INCENTIVE SPIROMETRY RT ALLAN AJIBADE Start: 10-02-2021 INCENTIVE SPIROMETRY RT ALLAN AJIBADE Start: 10-02-2021 INCENTIVE SPIROMETRY RT ALLAN AJIBADE Start: 10-02-2021 INCENTIVE SPIROMETRY RT ALLAN AJIBADE Start: 10-02-2021 INCENTIVE SPIROMETRY RT ALLAN AJIBADE Start: 10-02-2021 INCENTIVE SPIROMETRY RT ALLAN AJIBADE Start: 10-02-2021 AMBULATE PATIENT TEMITO PE AJIBADE Start: 10-02-2021 INCENTIVE SPIROMETRY RT ALLAN AJIBADE Start: 10-02-2021 OT EVAL AND TREAT TEMIT OPE AJIBADE Start: 10-02-2021 PEP/FLUTTER ALLAN A JIBADE Start: 10-02-2021 PT EVAL AND TREAT TEMIT OPE AJIBADE Start: 10-02-2021 UP IN CHAIR ALLAN A JIBADE Start: 10-02-2021 INITIATE OXYGEN THER APY PROTOCOL ALLAN AJIBADE Start: 10-02-2021 Blood count complete auto&auto difrntl wbc ALLAN AJIBADE Start: 10-01-2021 OT EVAL AND TREAT TEMIT OPE AJIBADE Start: 10-01-2021 PT EVAL AND TREAT TEMIT OPE AJIBADE Start: 10-01-2021 INITIATE OXYGEN THER APY PROTOCOL ALLAN AJIBADE Start: 09-30-2021 INITIATE OXYGEN THER APY PROTOCOL ALLAN AJIBADE Start: 09-30-2021 Blood count complete auto&auto difrntl wbc ALLAN AJIBADE Start: 09-30-2021 C-reactive protein GALINA MELLY AJIBADE Start: 09-29-2021 C-reactive protein GALINA MELLY AJIBADE Start: 09-29-2021 Procalcitonin (pct) TEM ITOPE AJIBADE Start: 09-29-2021 INITIATE OXYGEN THER APY PROTOCOL ALLAN AJIBADE Start: 09-29-2021 ADULT DIET ALLAN A JIBADE Start: 09-29-2021 FULL CODE ALLAN A JIBADE Start: 09-29-2021 IP CONSULT TO PHARMACY ALLAN AJIBADE Start: 09-29-2021 IP CONSULT TO PULMONOLOGY ALLAN AJIBADE Start: 09-29-2021 REASON FOR NO MECHAN ICAL VTE PROPHYLAXIS ALLAN AJIBADE Start: 09-29-2021 DROPLET PLUS ISOLATION ALLAN AJIBADE Start: 09-29-2021 INITIATE OXYGEN THER APY PROTOCOL ALLAN AJIBADE Start: 09-29-2021 NURSING COMMUNICATION T EMITOPE AJIBADE Start: 09-29-2021 VITAL SIGNS ALLAN A JIBADE Start: 09-28-2021 PATIENT STATUS (FROM ED OR OR/PROCEDURAL) ALLAN AJIBADE Start: 09-28-2021 IP CONSULT TO HOSPITALIST ALLAN AJIBADE Start: 09-28-2021 Ct angiography chest w/contrast/noncontrast ALLAN AJIBADE Start: 09-28-2021 Assay of lactate TEMITO PE AJIBADE Start: 09-28-2021 Radiologic exam ches t single view ALLAN AJIBADE Start: 09-28-2021 Blood gases any comb ination ph pco2 po2 co2 hco3 ALLAN AJIBADE Start: 09-28-2021 COVID-19, RAPID TEMITOP E AJIBADE Start: 09-28-2021 Blood count complete auto&auto difrntl wbc ALLAN AJIBADE Start: 09-28-2021 BRAIN NATRIURETIC PEPTIDE ALLAN AJIBADE Start: 09-28-2021 C-reactive protein GALINA MELLY AJIBADE Start: 09-28-2021 CULTURE, BLOOD 1 TEMITO PE AJIBADE Start: 09-28-2021 Continuous pulse oximetry ALLAN AJIBADE Start: 09-28-2021 INSERT PERIPHERAL IV TE MITOPE AJIBADE Start: 09-28-2021 SALINE LOCK IV ALLAN AJIBADE Start: 09-28-2021 TELEMETRY MONITORING TE MITOPE AJIBADE Start: 09-28-2021 Ecg routine ecg w/le ast 12 lds w/i&r ALLAN AJIBADE Start: 09-28-2021 Culture bacterial bl ood aerobic w/id isolates ALLAN AJIBADE Plan of Treatment Date Care Activity Detail Author Start: 06-21-2026 DIABETES SCREEN DIABETES SCREEN [facility] Start: 06-21-2026 Diabetes Screening Diabetes Screenin g [facility] Start: 07-09-2023 Influenza vaccination [facility] Start: 11-08-2022 ADVANCE DIRECTIVE DISCUSSION ADVANCE DIRECTIVE DISCUSSION [facility] Start: 11-08-2022 DEPRESSION ASSESSMENT [facility] Start: 07-09-2022 Influenza vaccination INFLUENZA (#1) [facility] Start: 11-08-2021 ADVANCE DIRECTIVE DISCUSSION ADVANCE DIRECTIVE DISCUSSION [facility] Start: 11-08-2021 DEPRESSION ASSESSMENT [facility] Start: 02-15-2013 DIABETES SCREEN DIABETES SCREEN [facility] Start: 2007 BONE DENSITY BONE DENSITY [facility] Start: 2007 Bone Density Screening Bone Density Screening [facility] Start: 2007 Pneumococcal Vaccine : 65+ (1 - PCV) Pneumococcal Vaccine: 65+ (1 - PCV) [facility] Start: 2007 PNEUMOCOCCAL: 65+ (1 - PCV) PNEUMOCOCCAL: 65+ (1 - PCV) [facility] Start: 1992 SHINGRIX VACCINE (1 of 2) SHINGRIX VACCINE (1 of 2) [facility] Start: 1961 Urine microalbumin profile [facility] Start: 1940 COVID-19 VACCINE (#1) COVID-19 VACCI NE (#1) [facility] Ct abdomen & pelvis w/contrast material CT ABD/PEL W IVCON Radiology Routine Recurrent incisional hernia 05/12/2023 3:10 PM EDT [facility] Work Phone: End: 06-21-2024 ECG COMPLETE ECG COMPLETE ECG Routine Pre-operative examination 1 Occurrences starting 06/21/2023 until 06/21/2024 [facility] Work Phone: Comment on above: 1 Occurrences starti ng 06/21/2023 until 06/21/2024 ECG COMPLETE ECG COMPLETE ECG 06/21/2023 9:05 AM EDT [facility] Payers Date Payer Category Payer Unknown [id number] 2008 Unknown [employer] BLUE CARD TRADITIONAL OOS [id number] 2008-Present [phone] [address] [place] [address] Indemnity [id number] 2007 Medicare [id number] 2007 Medicare MEDICARE MEDICAR E A AND B [id number] 2007-Present [phone] [address] [address] [place] [address] Medicare [id number] 1940 Unknown [id number] Social History Date Type Detail Facility Start: 09-04-2022 [facility] Start: 09-04-2022 Tobacco use and exposure Smoke less tobacco non-user [facility] Start: 09-04-2022 End: 07-27-2023 Alcohol intake Current non-drinker of alcohol (finding) [facility] Start: 1940 Sex Assigned At Not on file [facility] Start: 08-25-2022 End: 10-05-2022 Exposure to SARS-CoV-2 (event) Not sure [facility] Start: 04-20-2023 End: 05-17-2023 History of Social function [facility] Start: 04-20-2023 End: 05-17-2023 Tobacco use panel [facility] National Score (1-10 0), lower number is lower risk 66 [facility] Medical Equipment Procedure Code Equipment Code Equipment Origin al Text Equipment Identifier Dates Mesh Parietex 8. 6cm Small Collagen Surgical Patch [facility] Composite - [id number] Start: 07-02-2023 Clinical Notes 09-04-2022 to 08-23-2023 Mendez Enciso MD - 08/23/2023 11:25 AM EDTTelephone Encounter - Keisha Caraballo - 07/07/2023 11:29 AM EDTTelephone Encounter - Carmelina Lacy PA-C - 07/07/2023 10:28 AM EDT Note Date & Type Note Facility 08-23-2023 Note HNO ID: [id number] Author: Mendez Enciso MD Service: ? Author Type: Physician Type: Progress Notes Filed: 08/23/2023 11:32 AM Note Text: Subjective: Patient is status post an incisional hernia repair on 07/02/2023. Postoperatively she went into respiratory failure and was subsequently sent to [facility] for a work-up for her hypoxia and a cardiology consultation. She had a CTA which did not show any signs signs of PE. Troponin elevation was thought to be due to hypoxia. Cardiology reviewed and recommended no further work-up. She subsequently has been improving at home. Objective:Blood pressure 122/74, pulse 100, temperature 36.3 ?C (97.4 ?F), weight 89.8 kg (198 lb), SpO2 94 %. Abdomen is soft. Incisions healing without signs of infection. Assessment: Aftercare. We will have the patient follow-up with me in 1 month. [facility] 08-23-2023 History of Presen t illness Narrative Subjective: Patient is status post an incisional hernia repair on 07/02/2023. Postoperatively she went into respiratory failure and was subsequently sent to [facility] for a work-up for her hypoxia and a cardiology consultation. She had a CTA which did not show any signs signs of PE. Troponin elevation was thought to be due to hypoxia. Cardiology reviewed and recommended no further work-up. She subsequently has been improving at home. Objective:Blood pressure 122/74, pulse 100, temperature 36.3 C (97.4 F), weight 89.8 kg (198 lb), SpO2 94 %. Abdomen is soft. Incisions healing without signs of infection. Assessment: Aftercare. We will have the patient follow-up with me in 1 month. documented in this encounter [facility] 07-07-2023 Miscellaneous Notes Called and spoke with pt daughter Kateryna. She said pt was just moved to rehab today and is expected to be in hospital for 2 more weeks. We scheduled the patient for 07/27 at 8:00 am Keisha Reviewed message with Dr. Enciso. Have patient reschedule a post-op appointment with Dr. Enciso please (not urgently, can be in 1-2 weeks once she is feeling better from recent hospitalization) Elsa - daughter calling and states she needs to cancel her mom's post op appointment with Carmelina Lacy. Patient had hernia surgery with Dr. Enciso. States her mom was sent home with a UTI and was admitted to the hospital on Wednesday for a possible overdose on Oxycodone and heart issues then to the ICU. Hopefully she will be out of the ICU and sent home this week. Daughter would like to be called if she needs to reschedule the post op appointment? documented in this encounter [facility] 07-02-2023 History of Past i llness Narrative Problem Noted Date Diagnosed Date Resolved Date Recurrent incisional hernia 07/02/2023 07/02/2023 documented as of this encounter (statuses as of 07/07/2023) [facility]08-25-2023 History of Past illness Narrative* Problem Noted Date Diagnosed Date Resolved Date Recurrent incisional hernia 07/02/2023 07/02/2023 documented as of this encounter (statuses as of 08/23/2023) [facility]08-25-2023 NoteHNO ID: [id number] Author: Luciana Leonard APRN.CRNA Service: ? 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 Staffing Performed by: OCEANOGRAPHER GEOLOGICAL Indications and Patient Condition Indications for airway management: anesthesia Preoxygenated: yes anesthesia circuit Patient position: sniffing Method: asleep Difficult Mask: No Airway Accessory: oral airway Final Airway Details Final airway type: endotracheal airway Final Endotracheal Airway: ETT Cuffed: yes Successful intubation technique: direct laryngoscopy Endotracheal tube insertion site: oral Blade: Jeremy Blade size: #3 ETT size (mm): 7.0 Measured from: lips Measurement (cm): 21 Placement verified by: capnometry Cormack-Lehane Classification: grade I - full view of glottis Number of attempts at approach: 1 Failed airway: no Unrecognized esophageal intubation: no Airway not difficult SIGNATURE: Luciana Leonadr APRN.CRNA PATIENT NAME: Ela Johnson DATE: July 02, 2023 TIME: 9:39 AM CSN: [id number] NoteHNO ID: [id number] Author: Genesis Pastor RN Service: ? Author Type: Registered Nurse Type: Nursing Progress Note Filed: 07/02/2023 7:57 AM Note Text: Patient has noticeable redness/rash on thighs, back and under breast area. Dr. [id number] History and physical note* Lindsay Toney APRN.CNP - 06/21/2023 8:27 AM EDT HISTORY AND PHYSICAL EXAMINATION SERVICE DATE: 06/21/2023 SERVICE TIME: 10:25 AM PRIMARY CARE PHYSICIAN: Anna Juarez MD REASON FOR VISIT: Ela Johnson is a 83 year old female who is scheduled for Procedure(s): LAPAROSCOPIC HERNIA REPAIR INCISIONAL RECURRENT W/ MESH REDUCIBLE 3cm-10cm (N/A) at the request of Dr. Mendez Enciso for consultation. My final recommendation will be communicated back to the requesting physician by way of shared medical record or letter. 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 CHIEF COMPLAINT: Pre-op exam HPI: Ela Johnson is a 83 year old seen for PAC due to scheduled above surgery because of a recurrent incisional hernia. 05/17/2023, Dr. Enciso HPI: Ela is a 83 year old female with a complaint of a bulge in her prior midline incision. The patient notes discomfort in this area with lifting. The symptoms have maintained, over the past few months. Patient status post emergent surgery for an incarcerated incisional hernia repair on 08/17/2022. Patient has been doing well not having any abdominal complaints moving her bowels gradually increasingher activities. She has not had any undue abdominal pain. Recent CAT scan showed the recurrence of a fat-containing hernia in the epigastric region without any signs of acute inflammation. Hernias 5.3 cm in size REVIEW OF SYSTEMS: General: No weight loss, malaise or fevers. Neurological: No history of TIA's, stroke, RETORT CONDENSER ATTENDANT tumor, impaired sensorium, hemiplegia, paraplegia orquadraplegia. No neurological symptoms or problems. Respiratory: No history of current cough or dyspnea, or pneumonia in the past 6 weeks. No history of respiratory/pulmonary symptoms or problems. Cardiovascular: Positive for: hyperlipidemia, hypertension and PVD Negative for: anticoagulation therapy, arrhythmia, atrial fibrillation, CAD, chest pain, CHF, congenital heart defect, DVT/PE, recent KS, murmur/valvular heart disease, PTCA, open heart surgery and valve surgery. GI: No history of GI symptoms or problems. No history of esophageal varices, recent ascites, or ETOH greater than 2 drinks per day. : Positive for: urinary incontinence (on rx). Negative for: nephrolithiasis, renal failure and urinary tract infection. INDEX CLERK: Negative for abnormal vaginal bleeding, abnormal vaginal discharge. Endocrine: No history of diabetes. Has not taken steroids within the past 30 days. No history of endocrinological symptoms or problems. Hematology: No history of bleeding or clotting disorder. Patient is not taking anti-coagulation or platelet medications. No history of hematological symptoms or problems. Oncology: +endometrial cancer, s/p hyster and XRT, denies chemo Psych: No history of psychiatric symptoms or problems. Musculoskeletal: Negative for joint pain or swelling, back pain or muscle pain. Skin: Negative for lesions, rash and itching. 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 Taking Yes Biotin 10,000 mcg cap Take 5,000 mcg by mouth once daily. Taking Yes nystatin (MYCOSTATIN) powder Apply 1 application to affected area three times daily. Taking Yes multivit,thx,calcium,iron,mins (MULTIVITAMIN AND MINERAL ORAL) Take by mouth once daily. Taking Yes oxybutynin XL (DITROPAN XL) 5 mg 24 hr tablet Take 5 mg by mouth once daily. No medication comments found. ALLERGIES Allergen Reactions Shellfish Derived Swelling Patient states throat itches. Rosuvastatin Myalgia Sulfa (Sulfonamide * GI Upset Trimethoprim Unknown Objective PHYSICAL EXAM: General: alert and oriented (x3) and healthy appearance. Pertinent negatives noted - not distressed. Skin: normal color, no rash or lesions. HEENT: EOM intact and pupils equal round. Pertinent negatives noted - no carotid bruit. Cardiovascular: regular rate and rhythm, normal S1 and S2, no rub, murmurs, or gallop. Respiratory: normal breath sounds, no wheezes or crackles. No chest wall deformity or tenderness. Abdomen: soft. Pertinent negatives noted - not tender. Extremities: Positive for edema (BLE 1+). Neurological: normal cognition and motor skills. Gait normal. No weakness or sensory deficit. PAIN ASSESSMENT: Pain Pain Level: 1 Pain Location: Abdomen Duration Amount of Time: 1 Duration Units: Weeks Frequency: Intermittent VITALS: BP 124/76 Pulse 77 Temp (Src) 97.7 (Temporal) Resp 14 Ht 5' 4 (1.63m) Wt 197 lb (89.4kg) SpO2 91% BMI 33.80 kg/(m^2). Diagnostic tests reviewed for today's visit: Lab Value Units Date High Low HB 14.6 g/dL 06/21/2023 15.5 11.5 HCT 45.0 % 06/21/2023 46.0 36.0 WBC 4.94 k/uL 06/21/2023 11.00 3.70 PLT 183 k/uL 06/21/2023 400 150 NA No results within date range. K No results within date range. GLUC No results within date range. BUN No results within date range. CREAT 1.06 mg/dL 05/12/2023 0.96 0.58 PTSEC No results within date range. INR No results within date range. APTT No results within date range. ALT No results within date range. AST No results within date range. TBILI No results within date range. TSH No results within date range. Lab Value Units Date High Low HCGQT No results within date range. UHCG No results within date range. HCG, BODY* No results within date range. Lab Value Units Date High Low ABORHD No results within date range. ABSCREEN No results within date range. No results found for: HBA1C Recent Results (from the past 8760 hour(s)) ECG COMPLETE Collection Time: 06/21/23 9:05 AM Result Value Ventricular Rate 65 Atrial Rate 65 P-R Interval 140 QRS Duration 92 QT Interval 420 QTC Calculation (Bazett) 436 Calculated P Surprise 22 Calculated R Surprise -41 Calculated T Surprise 59 Impression NORMAL SINUS RHYTHM LEFT AXIS DEVIATION RSR' PATTERN IN V1 SUGGESTS INCOMPLETE RIGHT BUNDLE BRANCH BLOCK ABNORMAL ECG No results found for this or any previous visit (from the past 44961 hour(s)). Assessment Patient has the following medical conditions which may affect leigh-operative course: Endometrial Cancer Assessment: s/p hyster and XRT, denies chemo Essential hypertension, benign Assessment: controlled on rx Last 14 BP Last 14 Encounter BP Readings: Date: BP: 06/21/2023 124/76 05/17/2023 142/76 04/20/2023 138/82 10/05/2022 122/74 09/04/2022 121/81 07/11/2010 158/86 05/21/2010 111/66 05/20/2010 119/70 05/16/2010 144/68 05/13/2010 110/66 05/05/2010 123/74 05/01/2010 134/75 04/28/2010 118/63 04/22/2010 130/77 Hyperlipidemia Assessment: statin intolerant Mixed stress and urge urinary incontinence Assessment: controlled on rx Bilateral leg edema Assessment: BLE 1+ History of severe acute respiratory syndrome coronavirus 2 (SARS-CoV-2) disease Assessment: hx 09/2021 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 Clinical Frailty Scale: 3. Well, with treated comorbid disease STOP-Bang Score: Patient over 50 years old Denies snoring loudly Denies feeling tired, fatigued, or sleepy during the daytime Has not been observed to stop breathing or choking/gasping during sleep Denies having high blood pressure BMI less than or equal to 35 kg/m^2 Does not have a large neck Non-male patient STOP-Bang Score: 1 [id number] Score: Age: >=75 Sex: female CHF history: No Hypertension history: Yes Stroke/TIA/thromboembolism history: No Vascular disease history: Yes Diabetes history: No [id number] Score: 5 ARISCAT Score: Age: >80 Preoperative SpO2: 91-95% Respiratory infection in the last month: No Preoperative anemia: No Surgical incision: peripheral Duration of surgery: <2 hrs Emergency procedure: No ARISCAT Score: 24 ASA Class: 3 ANESTHESIA FINDINGS: Intubation History: No history of difficult intubation Significant Anesthesia Considerations: none Airway History: No history of difficult airway I - PHYSICAL EVALUATION AIRWAY Patient intubated: No. Tracheostomy tube not present Mallampati: III. TM distance: >3 FB. Neck ROM: full ROM without neurological symptoms. Mouth opening: adequate. Short neck: no. Thick neck: yes Oleary present: no Lip Bite Test: III Microretrognathia/Micronagthia/Recessed Chin: Yes DENTAL Dental findings: teeth intact. Dentures, upper: complete. II - ANESTHESIA PLAN ASA Score: 3 Anesthetic Plan: other Anesthetic plan additional comments: *PACC/TCI - anesthesia choice. Beta Alfredo Monitoring Plan Post Procedure Analgesic Plan Informed Consent Anesthetic risks, benefits, alternatives, personnel and consent discussed: yes. Patient / Responsible Libertarian agrees to proceed: yes Patient / Surrogate agrees to blood products: blood products not planned Discussed the possibility of lip / dental damage: yes Prepared for Surgery: optimally prepared for surgery, pending [see comment]. Labs, EKG CONSULTS: Patient does not require consults for optimization at this time Planned Anesthetic: other anesthesia choice The Following Tests/Procedures Have Been Initiated: Orders Placed This Encounter >CBC + AUTO DIFF Standing Status: Future Number of Occurrences: 1 Standing Expiration Date: 08/21/2023 >CMP Standing Status: Future Number of Occurrences: 1 Standing Expiration Date: 08/21/2023 oxybutynin XL (DITROPAN XL) 5 mg 24 hr tablet Sig: Take 5 mg by mouth once daily. ECG COMPLETE Standing Status: Future Number of Occurrences: 1 Standing Expiration Date: 06/21/2024 ECG COMPLETE Order Comments: Ordered by an unspecified provider Instructions Given to Patient: Instructions located in the after visit summary. Patient given verbal and written preop instructions and voices comprehension and compliance. SIGNATURE: Lindsay Toney APRN.CNP PATIENT NAME: Ela Johnson DATE: June 21, 2023 TIME: 8:27 AM PAGER/CONTACT #: [facility] Instructions* Patient Instructions* Lindsya Toney APRN.CNP - 06/21/2023 8:27 AM EDT PATIENT PREOPERATIVE INSTRUCTIONS Mendez Enciso MD has scheduled you for your procedure at this surgery center: [facility]: [phone] -- [address] [facility] [address]. Please read below carefully for your personalized instructions. Dietary Restrictions: - No solid food after midnight. - You may have 12 ounces of clear liquids (water, clear juices such as apple juice or gatorade, carbonated beverages, clear tea, black coffee, jello) until 2 hours before scheduled arrival at facility. No red/purple coloring and no creamer/sugar Medications: Unless instructed differently below, stay on all of your medications until your surgery. Approved medications to take the morning of surgery with a sip of water: amLODIPine (NORVASC) If you start any new medications after today's visit, please contact the surgeon's office. Blood Thinning Medications: - Stop NSAIDS (Ibuprofen, Advil, Aleve, Motrin, Celebrex, Mobic, etc.) 7 days before surgery, as directed by your surgeon. - Stop Aspirin 7 days before surgery, as directed by your surgeon. - Stop Vitamin E, ALL multi-vitamins, herbals and dietary supplements 7 days before surgery. - You may take Tylenol (Acetaminophen) or any of your pain medications that do not contain aspirin or NSAIDS as needed. Important Reminders: - Candy, mints, gum and tobacco products are NOT permitted the morning of surgery. - Hearing aids, dentures and glasses may be worn the morning of surgery. - NO jewelry, body piercings, makeup, hairpins or contacts are to be worn the day of surgery. If you develop symptoms such as a fever, cold, or flu, or have other changes to your health within TWO DAYS of scheduled surgery or the morning of surgery, please contact the surgery center above. Personal Belongings: -Please have photo ID and insurance cards. -If you do not have a copy of advance directives on file with us, please bring a copy with you on the day of surgery. - Leave ALL valuables and money at home or with family members. For Outpatient Procedures: - YOU MUST HAVE A RESPONSIBLE ORCHID GROWER TAKE YOU HOME. A PEANUT ROASTER OR NET ARCHITECT CANNOT BE MADE A RESPONSIBLE ORCHID GROWER. - We recommend that a responsible person stays with you overnight to take care of you. - You cannot stay in a hotel alone after outpatient surgery. You will not be permitted to have yoursurgery, if you do not have someone to take care of you. Arrival Time for Surgery: - The Surgery Center or hospital where you are having surgery will call the afternoon before surgery (or Wednesday for Wednesday surgery) with a scheduled arrival time. - If you have not heard by 4 pm, please contact the surgery center above. Please be aware that emergency situations arise, which may delay or change your surgical time. If this happens, we will notify you as soon as possible and regret any inconvenience. If you already have an Advance Directive, please fax a copy to [phone] or email to for it to be added to your chart. If you do not have an Advance Directive, you can find the appropriate form and more information at [email or web address]. We recommend that youcomplete the Advance Directive form found on the website and bring it with you the day of your surgery. It can be witnessed and scanned into your chart that day. Lindsay Toney APRN.SOFT DRINK POWDER MIXER documented in this encounterOhio [facility]07-10-2023 NoteHNO ID: [id number] Author: Mendez Enciso MD Service: ? Author Type: Physician Type: Progress Notes Filed: 05/17/2023 2:26 PM Note Text: HISTORY AND PHYSICAL [facility] 1940 REFERRING PHYSICIAN: No ref. provider found CHIEF COMPLAINT: Consult (Bulge where previous hernia surgery) HPI: Ela is a 83 year old female with a complaint of a bulge in her prior midline incision. The patient notes discomfort in this area with lifting. The symptoms have maintained, over the past few months. Patient status post emergent surgery for an incarcerated incisional hernia repair on 08/17/2022. Patient has been doing well not having any abdominal complaints moving her bowels gradually increasing her activities. She has not had any undue abdominal pain. Recent CAT scan showed the recurrence of a fat-containing hernia in the epigastric region without any signs of acute inflammation. Hernias 5.3 cm in size PAST MEDICAL HISTORY PAST MEDICAL HISTORY Diagnosis Date Acute respiratory failure with hypoxia (HCC) Difficulty walking Endometrial cancer (HCC) Incisional hernia 08/24/2022 Loss of coordination Muscle weakness (generalized) Obesity Unspecified essential hypertension PAST SURGICAL HISTORY PAST SURGICAL HISTORY Procedure Laterality Date RAD ABDL HYSTERECTOMY W/BI PELVIC LMPHADENECTOMY 02/13/2010 REPAIR INCISIONAL HERNIA,REDUCIBLE 08/17/2022 CURRENT MEDICATIONS Current Outpatient Medications Medication Sig amLODIPine (NORVASC) 5 mg tablet Take 5 mg by mouth once daily. Biotin 10,000 mcg cap Take 5,000 mcg by mouth once daily. nystatin (MYCOSTATIN) powder Apply 1 application to affected area three times daily. multivit,thx,calcium,iron,mins (MULTIVITAMIN AND MINERAL ORAL) Take by mouth once daily. iv contrast (will be provided with radiology test) CT ABD/PEL -Inject, intravenously, once for 1 dose.No IV access, insert saline lock prior to the beginning of sedation, infusion, injection of imaging exam. Discontinue saline lock post exam. If Pt. has a central line or IVAD, may access for administration according to line specific nursing protocol. Once exam is complete flush line and de-access according to line specific nursing protocol in the CT contrast administration guidelines link. enteric contrast (will be provided with radiology test) For CT ABD/PEL W IVCON Routine order Administer, As Directed One Time Only, via Oral, Rectal, both Oral and Rectal, Enteric Tube, Stoma or Indwelling Catheter, Enteric Contrast as designated per enteric contrast guidelines ascorbic acid, vitamin C, (VITAMIN C) 500 mg tablet Take 500 mg by mouth every other day. (Patient not taking: Reported on 04/20/2023) Zinc Sulfate 50 mg zinc (220 mg) tab Take 50 mg by mouth. Wednesday, Wednesday and Wednesday (Patient not taking: Reported on 04/20/2023) acetaminophen 325 mg cap Take 650 mg by mouth every 6 hours as needed. (Patient not taking: Reported on 04/20/2023) Docusate Sodium 100 mg tab Take 100 mg by mouth once daily. (Patient not taking: Reported on 04/20/2023) guaiFENesin (ROBITUSSIN) 100 mg/5 mL syrup Take 200 mg by mouth every 4 hours as needed. (Patient not taking: Reported on 04/20/2023) apixaban (ELIQUIS) 5 mg tab(s) Take 5 mg by mouth twice daily. (Patient not taking: Reported on 04/20/2023) No current facility-administered medications for this visit. 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 Eyes: The patient denies glaucoma, denies eye injury/surgery, does not wear glasses or contacts. Ear/Nose/Throat: The patient denies allergies, denies hayfever, denies ear infections, and denies bloody noses. Cardiovascular: The patient denies chest pain, denies heart disease, notes high blood pressure,denies cardiac stent, denies prior heart attack, denies irregular heart beat, denies high cholesterol, denies poor circulation, denies heart failure, other cardiac issues, denies claudication, denies cold feet, denies peripheral arterial stent. Respiratory: The patient denies tuberculosis, denies pneumonia, denies frequent cough, denies pulmonary embolism, denies shortness of breath, and denies coughing up blood. (more content not included)...[facility]07-10-2023 History of Present illness Narrative* Mendez Enciso MD - 05/17/2023 2:23 PM EDT Images from the original note were not included. HISTORY AND PHYSICAL Ela Floresitafilmiri 1940 REFERRING PHYSICIAN: No ref. provider found CHIEF COMPLAINT: Consult (Bulge where previous hernia surgery) HPI: Ela is a 83 year old female with a complaint of a bulge in her prior midline incision. The patient notes discomfort in this area with lifting. The symptoms have maintained, over the past few months. Patient status post emergent surgery for an incarcerated incisional hernia repair on 08/17/2022. Patient has been doing well not having any abdominal complaints moving her bowels gradually increasingher activities. She has not had any undue abdominal pain. Recent CAT scan showed the recurrence of a fat-containing hernia in the epigastric region without any signs of acute inflammation. Hernias 5.3 cm in size PAST MEDICAL HISTORY PAST MEDICAL HISTORY Diagnosis Date Acute respiratory failure with hypoxia (HCC) Difficulty walking Endometrial cancer (HCC) Incisional hernia 08/24/2022 Loss of coordination Muscle weakness (generalized) Obesity Unspecified essential hypertension PAST SURGICAL HISTORY PAST SURGICAL HISTORY Procedure Laterality Date RAD ABDL HYSTERECTOMY W/BI PELVIC LMPHADENECTOMY 02/13/2010 REPAIR INCISIONAL HERNIA,REDUCIBLE 08/17/2022 CURRENT MEDICATIONS Current Outpatient Medications Medication Sig amLODIPine (NORVASC) 5 mg tablet Take 5 mg by mouth once daily. Biotin 10,000 mcg cap Take 5,000 mcg by mouth once daily. nystatin (MYCOSTATIN) powder Apply 1 application to affected area three times daily. multivit,thx,calcium,iron,mins (MULTIVITAMIN AND MINERAL ORAL) Take by mouth once daily. iv contrast (will be provided with radiology test) CT ABD/PEL -Inject, intravenously, once for 1 dose.No IV access, insert saline lock prior to the beginning of sedation, infusion, injection of imaging exam. Discontinue saline lock post exam. If Pt. has a central line or IVAD, may access for administration according to line specific nursing protocol. Once exam is complete flush line and de-accessaccording to line specific nursing protocol in the CT contrast administration guidelines link. enteric contrast (will be provided with radiology test) For CT ABD/PEL W IVCON Routine order Administer, As Directed One Time Only, via Oral, Rectal, both Oral and Rectal, Enteric Tube, Stoma or Indwelling Catheter, Enteric Contrast as designated per enteric contrast guidelines ascorbic acid, vitamin C, (VITAMIN C) 500 mg tablet Take 500 mg by mouth every other day. (Patient not taking: Reported on 04/20/2023) Zinc Sulfate 50 mg zinc (220 mg) tab Take 50 mg by mouth. Wednesday, Wednesday and Wednesday (Patient nottaking: Reported on 04/20/2023) acetaminophen 325 mg cap Take 650 mg by mouth every 6 hours as needed. (Patient not taking: Reported on 04/20/2023) Docusate Sodium 100 mg tab Take 100 mg by mouth once daily. (Patient not taking: Reported on 04/20/2023) guaiFENesin (ROBITUSSIN) 100 mg/5 mL syrup Take 200 mg by mouth every 4 hours as needed. (Patient not taking: Reported on 04/20/2023) apixaban (ELIQUIS) 5 mg tab(s) Take 5 mg by mouth twice daily. (Patient not taking: Reported on 04/20/2023) No current facility-administered medications for this visit. ALLERGIES: Shellfish Derived, Rosuvastatin, Sulfa (Sulfonamide Antibiotics), and Trimethoprim PERSONAL HISTORY: SOCIAL HISTORY Social History Tobacco Use Smoking status: Never Smokeless tobacco: Never Vaping Use Vaping Use: Never used Substance Use Topics Alcohol use: No Drug use: No FAMILY HISTORY: FAMILY HISTORY FAMILY HISTORY Problem Relation Age of Onset Heart Mother Cancer Father other (Chondroplastic dwarf [Other]) Son None Other No family history of breast or scrap metal processing worker malignancy REVIEW OF SYMPTOMS: The review of systems data was entered by the nurse and reviewed by sd Nursing Notes: Ritika Yoo LPN 04/20/2023 1:44 PM Signed REVIEW OF SYSTEMS: General: The patient notes fatigue, denies weight loss, denies weight gain, denies feeling hot, anddenies feelings of cold. Eyes: The patient denies glaucoma, denies eye injury/surgery, does not wear glasses or contacts. Ear/Nose/Throat: The patient denies allergies, denies hayfever, denies ear infections, and denies bloody noses. Cardiovascular: The patient denies chest pain, denies heart disease, notes high blood pressure,denies cardiac stent, denies prior heart attack, denies irregular heart beat, denies high cholesterol, denies poor circulation, denies heart failure, other cardiac issues, denies claudication, denies coldfeet, denies peripheral arterial stent. Respiratory: The patient denies tuberculosis, denies pneumonia, denies frequent cough, denies pulmonary embolism, denies shortness of breath, and denies coughing up blood. Gastrointestinal: The patient denies difficulty swallowing, denies acid reflux, denies ulcers, denies vomiting, denies jaundice/hepatitis, denies gallbladder problems, denies black or tarry stools, denies hemorrhoids, denies bleeding from rectum, denies diverticulitis, denies constipation, denies diarrhea, denies loss of stool control, and notes hernias. Kidney/Bladder: The patient denies kidney stones, denies urine infections, and denies bloody urine. Skin: The patient denies a history of skin cancer, denies bleeding/changing moles, and denies a history of skin rash. Neurologic: The patient denies a history of epilepsy/convulsions, denies headaches, denies head/spinal injuries, and denies stroke/TIA. Psychiatric: The patient denies psychiatric medications, denies depression, and denies voices, denies substance abuse. Endocrine: The patient denies thyroid disorders, denies diabetes, and denies hormonal problems. Hematologic: The patient denies a history of bruising, denies bleeding, and denies anemia, denies blood clots. Infections: The patient denies a history of measles and mumps, denies rheumatic fever, and denies sexually transmitted diseases. Musculoskeletal: The patient denies back pain/injury, denies back problems, denies sciatica, deniesknee/foot trouble, denies arthritis, or denies gout. When was patient's last Mammogram screening? none Last Colonoscopy: none Ritika Yoo LPN PHYSICAL EXAMINATION: General: The patient is 83 year old female, well nourished, well hydrated in no acute distress. Thepatient is oriented to time, place, and person. VITALS: Blood pressure 142/76, pulse 78, temperature 36.4 C (97.5 F), weight 91.4 kg (201 lb 9.6 oz), SpO2 91 %. HEENT: Normal cephalic, ataumatic, pupils are equally round, sclera are anicteric, mucous membranesare moist, oropharynx is clear. Neck has no masses, asymmetry or lymphadenopathy. Thyroid is unremarkable. Respiratory: Clear to auscultation and percussion. Normal respiratory excursion and pattern. Cardiac: Examination is regular rate and rhythm. Abdominal exam: Soft, nontender, with no palpable masses. No hepatosplenomegaly. A moderate incisional hernia Rectal exam: exam deferred Extremities: no clubbing, cyanosis or edema. No adenopathy. Other: LABORATORY VALUES: As Noted RADIOLOGIC STUDIES: IMPRESSION: 1. Small fat-containing hernia in the epigastric region demonstrate no evidence of acute inflammation. 2. Status post with EVAR, the excluded aneurysm sac measures up to 5.3 cm with a few coarse calcifications, evaluation for endoleak is degraded in this single phase exam. Recommend correlation with prior studies if available. 3. Pelvic lymph node dissection, mildly prominent inguinal lymph nodes are nonspecific. 4. Partially imaged asymmetric breast tissue, for which correlation with dedicated breast imaging is recommended. Assessment IMPRESSION: Recurrent incisional hernia (primary encounter diagnosis) PLAN: My plan is to perform a incisional hernia repair with mesh. The planned surgical procedure was discussed extensively with the patient. The risks, benefits, anticipated outcomes and possible complications were mentioned. [facility] all her[facility] repair surgery has a chance of recurrence and/or chronic post operative pain. My staff has also explained the procedure in understandable terms and the patient was given the option to take printed material concerning the planned procedure.The patient had the opportunity to ask questions concerning the planned procedure. The patient freely consents to the planned procedure. My findings have been communicated to Dr. Anna Juarez MD via shared medical record. This note will be forwarded to Dr. Anna Juarez MD. Diagnoses: (K43.2) Recurrent incisional hernia (primary encounter diagnosis) Anticipated CPT Code: Recurrent anterior abdominal hernia repair 01437 - 3-10 cm reducible Anticipated Anesthetic: General Patient weight: Blood pressure 138/82, pulse 90, temperature 36.4 C (97.6 F), height 162.6 cm (5' 4 ), weight 90.3 kg (199 lb), SpO2 90 %. BMI: Body mass index is 34.16 kg/m . Planned antibiotic: Ancef 3gm IVPB integration specialist to OR SCDs needed - Yes Return to Clinic: The patient is instructed to follow-up with me after the testing has been completed. I spent 20 minutes with the patient and her daughter discussing the surgery that would be planned. All questions asked were answered. Mendez Enciso III, MD documented [facility] Miscellaneous Notes* [facility] - RT Francisca(R) - 05/12/2023 3:00 PM EDT Radiology Service Progress Note DATE OF SERVICE: May 12, 2023 TIME: 3:14 PM PATIENT IDENTITY VERIFICATION COMPLETED USING TWO (2) STANDARD IDENTIFIERS: Name and Date of confirmed by patient verbally. FALL SCREENING: Has the patient had 2 falls in the last year or 1 fall with injury or currently using an Ambulatory Assistive Device (Walker, Cane, Wheelchair, Crutches, etc.)? No PATIENT GENDER DATA: Female. status: : No status: NO. PATIENT RELEVANT IMPLANT DATA REVIEWED: Not Applicable ALLERGIES: Reviewed and unchanged CONTRAST ALLERGY: NO. EXAM: CT -CONTRAST INDUCED NEPHROPATHY RISK FACTORS: Patient age > 60 years CREATININE: Creatinine Date Value Ref Range Status 05/12/2023 1.06 (H) 0.58 - 0.96 mg/dL Final 02/15/2010 0.98 0.70 - 1.40 mg/dL Final 02/14/2010 0.83 0.70 - 1.40 mg/dL Final Estimated Glomerular Filtration Rate Date Value Ref Range Status 05/12/2023 53 (L) >=60 mL/min/1.73m Final Comment: Estimated Glomerular Filtration Rate (eGFR) is calculated using the 2020 CKD-EPI creatinine equation. This equation utilizes serum creatinine, sex, and age as parameters. The creatinine assay has traceable calibration to isotope dilution- mass spectrometry. Refer to KDIGO guidelines for clinical interpretation. In patients with unstable renal function, e.g. those with acute kidney injury, the eGFRmay not accurately reflect actual GFR. eGFR- Date Value Ref Range Status 02/05/2010 >60 Final P.O.C.T. RESULTS: POC done: Yes, See Lab Tab May 12, 2023 TREATMENT: N/A PERIPHERAL IV DATA: Ambulatory: A peripheral IV was started in the Right antecubital site with a Angio cath: 22 gauge. RADIOLOGY DEPARTMENT: CT; Exam(s) Completed: Abdomen/Pelvis SIGNATURE: RT Francisca(R) PATIENT NAME: Ela Johnson DATE: May 12, 2023 TIME: 3:14 PM documented in this encounterOhio [facility]06-13-[facility]23 NoteHNO ID: [id number] Author: Mendez Enciso MD Service: ? Author Type: Physician Type: Progress Notes Filed: 04/20/2023 2:11 PM Note Text: HISTORY AND PHYSICAL Ela Johnson 1940 REFERRING PHYSICIAN: No ref. provider found CHIEF COMPLAINT: Consult (Bulge where previous hernia surgery) HPI: Ela is a 83 year old female with a complaint of a bulge in her prior midline incision. The patient notes discomfort in this area with lifting. The symptoms have maintained, over the past few months. Patient status post emergent surgery for an incarcerated incisional hernia repair on 08/17/2022. Patient has been doing well not having any abdominal complaints moving her bowels gradually increasing her activities. She has not had any undue abdominal pain. PAST MEDICAL HISTORY Diagnosis Date Acute respiratory failure with hypoxia (HCC) Difficulty walking Endometrial cancer (HCC) Incisional hernia 08/24/2022 Loss of coordination Muscle weakness (generalized) Obesity Unspecified essential hypertension PAST SURGICAL HISTORY Procedure Laterality Date RAD ABDL HYSTERECTOMY W/BI PELVIC LMPHADENECTOMY 02/13/2010 REPAIR INCISIONAL HERNIA,REDUCIBLE 08/17/2022 Current Outpatient Medications Medication Sig amLODIPine (NORVASC) 5 mg tablet Take 5 mg by mouth once daily. Biotin 10,000 mcg cap Take 5,000 mcg by mouth once daily. nystatin (MYCOSTATIN) powder Apply 1 application to affected area three times daily. multivit,thx,calcium,iron,mins (MULTIVITAMIN AND MINERAL ORAL) Take by mouth once daily. iv contrast (will be provided with radiology test) CT ABD/PEL -Inject, intravenously, once for 1 dose.No IV access, insert saline lock prior to the beginning of sedation, infusion, injection of imaging exam. Discontinue saline lock post exam. If Pt. has a central line or IVAD, may access for administration according to line specific nursing protocol. Once exam is complete flush line and de-access according to line specific nursing protocol in the CT contrast administration guidelines link. enteric contrast (will be provided with radiology test) For CT ABD/PEL W IVCON Routine order Administer, As Directed One Time Only, via Oral, Rectal, both Oral and Rectal, Enteric Tube, Stoma or Indwelling Catheter, Enteric Contrast as designated per enteric contrast guidelines ascorbic acid, vitamin C, (VITAMIN C) 500 mg tablet Take 500 mg by mouth every other day. (Patient not taking: Reported on 04/20/2023) Zinc Sulfate 50 mg zinc (220 mg) tab Take 50 mg by mouth. Wednesday, Wednesday and Wednesday (Patient not taking: Reported on 04/20/2023) acetaminophen 325 mg cap Take 650 mg by mouth every 6 hours as needed. (Patient not taking: Reported on 04/20/2023) Docusate Sodium 100 mg tab Take 100 mg by mouth once daily. (Patient not taking: Reported on 04/20/2023) guaiFENesin (ROBITUSSIN) 100 mg/5 mL syrup Take 200 mg by mouth every 4 hours as needed. (Patient not taking: Reported on 04/20/2023) apixaban (ELIQUIS) 5 mg tab(s) Take 5 mg by mouth twice daily. (Patient not taking: Reported on 04/20/2023) No current facility-administered medications for this visit. 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 Eyes: The patient denies glaucoma, denies eye injury/surgery, does not wear glasses or contacts. Ear/Nose/Throat: The patient denies allergies, denies hayfever, denies ear infections, and denies bloody noses. Cardiovascular: The patient denies chest pain, denies heart disease, notes high blood pressure,denies cardiac stent, denies prior heart attack, denies irregular heart beat, denies high cholesterol, denies poor circulation, denies heart failure, other cardiac issues, denies claudication, denies cold feet, denies peripheral arterial stent. Respiratory: The patient denies tuberculosis, denies pneumonia, denies frequent cough, denies pulmonary embolism, denies shortness of breath, and denies coughing up blood. Gastrointestinal: The patient denies difficulty swallowing, denies acid reflux, denies ulcers, denies vomiting, denies jaundice/hepatitis, denies gallbladder problems, denies black or tarry stools, denies hemorrhoids, denies bleeding from rectum, denies di (more content not included)...[facility]11-29-2022 NoteHNO ID: [id number] Author: Mendez Enciso MD Service: ? Author Type: Physician Type: Progress Notes Filed: 10/06/2022 8:40 AM Note Text: Subjective: Patient status post emergent surgery for an incarcerated incisional hernia repair on 08/17/2022. Patient has been doing well not having any abdominal complaints moving her bowels gradually increasing her activities. She has not had any undue abdominal pain. Objective:Blood pressure 122/74, pulse 105, temperature 36.5 ?C (97.7 ?F), weight 86.2 kg (190 lb), SpO2 94 %. Abdomen is soft incisions are healed and clean without signs of any cellulitis. 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 She does understand she has a high likelihood that this hernia is going to come back since I had to fix it under tension with no mesh.[facility]11[facility] History of Present illness Narrative* Mendez Enciso MD - 10/06/2022 8:36 AM EST Subjective: Patient status post emergent surgery for an incarcerated incisional hernia repair on 08/17/2022. Patient has been doing well not having any abdominal complaints moving her bowels gradually increasing her activities. She has not had any undue abdominal pain. Objective:Blood pressure 122/74, pulse 105, temperature 36.5 C (97.7 F), weight 86.2 kg (190 lb), SpO2 94 %. Abdomen is soft incisions are healed and clean without signs of any cellulitis. 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 She does understand she has a high likelihood that this hernia is going to come back since I had tofix it under tension with no mesh. documented in this encounter[facility]10-[facility]22 NoteHNO ID: [id number] Author: Mendez Enciso MD Service: ? Author Type: Physician Type: Progress Notes Filed: 09/04/2022 11:09 AM Note Text: Patient is status post emergency surgery for incarcerated incisional hernia repair on 08/17/2020. Removed part of the sac send it off to pathology report came back as benign. She has been in a nursing facility regaining her strength. He is doing well she is moving her bowels has occasional diarrhea. She is no longer having any abdominal pains. And she is slowly improving. Subjective:Blood pressure 121/81, pulse 83, temperature 37.2 ?C (99 ?F). Incision is clean without signs of infection. There is no signs of cellulitis I do not see any signs of recurrence yet and there is no signs of any infection. Assessment: Aftercare Plan: Patient will follow-up with Carmelina Jackson in 1 month I do not want her to do any more leg lifts.[facility] History of Present illness Narrative* Mendez Enciso MD - 09/04/2022 10:23 AM EDT Patient is status post emergency surgery for incarcerated incisional hernia repair on 08/17/2020. Removed part of the sac send it off to pathology report came back as benign. She has been in a nursing facility regaining her strength. He is doing well she is moving her bowels has occasional diarrhea. She is no longer having any abdominal pains. And she is slowly improving. Subjective:Blood pressure 121/81, pulse 83, temperature 37.2 C (99 F). Incision is clean without signs of infection. There is no signs of cellulitis I do not see any signs of recurrence yet and there is no signs of any infection. Assessment: Aftercare Plan: Patient will follow-up with Carmelina Jackson in 1 month I do not want her to do any more leg lifts. [facility]* Diagnosis Aftercare- Primary Unspecified aftercare documented in this encounter The [facility] note* Diagnosis Aftercare- Primary Unspecified aftercare documented in this encounter [facility] note* Diagnosis Recurrent incisional hernia- Primary documented in this encounter [facility] note* Diagnosis Pre-operative examination- Primary Preoperative examination, unspecified Endometrial cancer (HCC) Malignant neoplasm of corpus uteri, except isthmus Essential hypertension, benign 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 Mixed incontinence urge and stress (male)(female) Bilateral leg edema Edema History of severe acute respiratory syndrome coronavirus 2 (SARS-CoV-2) disease Incomplete RBBB Right bundle branch block Recurrent incisional hernia documented in this encounter [facility] note* Diagnosis Aftercare- Primary Unspecified aftercare [facility] Outpatient Procedure (Routine) - Closed Specialty Diagnoses / Procedures Referred By Florentin t Referred To [facility] Diagnoses Pre-operative examination Procedures ECG COMPLETE ECG ROUTINE ECG W/LEAST 12 LDS W/I&R Lindsay Toney APRN.CNP [address] [place] [address] [facility] [address] [place] [id number] Referral ID Status Reason Start Date Expiration Date V isits Requested Visits Authorized [id number] Closed Auto-Generate d Referral 06/21/2023 06/20/2024 1 1 [facility] Summary Purpose Family History No Family History Records FoundNo Family History Records FoundNo Family History Records FoundNo Family History Records Found Advance Directives No Advanced Directives Records FoundDocuments on File Type Date Recorded Patient Charging Plug Placer Expl anation Advance Directive(s) 02/05/2010 9:41 PM Documents on File Type Date Recorded Patient Charging Plug Placer Expl anation Advance Directive(s) 02/05/2010 9:41 PM Additional Source Comments INFORMATION SOURCE (unrecogn ized section and content) DATE CREATED AUTHOR 10/09/2021 [facility] DATE CREATED AUTHOR AUTHOR'S ORGANIZ ATION 05/15/2023 [facility] DATE CREATED AUTHOR AUTHOR'S ORGANIZ ATION 07/03/2023 [facility] DATE CREATED AUTHOR AUTHOR'S ORGANIZ ATION 08/24/2023 [facility] Source Comments (unrecognize d section and content) In the event this informatio n is protected by the Federal Confidentiality of Alcohol and Drug Abuse Patient Records regulations: The Federal rules restrict any use of the information to criminally investigate or prosecute any alcohol or drug abuse patient.[facility] the event this information is protected by the Federal Confidentiality of Alcohol and Drug Abuse Patient Records regulations: The Federal rules restrict any use of the information to criminally investigate or prosecute any alcohol or drug abuse patient.[facility] the event this information is protected by the Federal Confidentiality of Alcohol and Drug Abuse Patient Records regulations: The Federal rules restrict any use of the information to criminally investigate or prosecute any alcohol or drug abuse patient.[facility] the event this information is protected by the Federal Confidentiality of Alcohol and Drug Abuse Patient Records regulations: The Federal rules restrict any use of the information to criminally investigate or prosecute any alcohol or drug abuse patient.[facility] the event this information is protected by the Federal Confidentiality of Alcohol and Drug Abuse Patient Records regulations: The Federal rules restrict any use of the information to criminally investigate or prosecute any alcohol or drug abuse patient.[facility] the event this information is protected by the Federal Confidentiality of Alcohol and Drug Abuse Patient Records regulations: The Federal rules restrict any use of the information to criminally investigate or prosecute any alcohol or drug abuse patient.[facility] the event this information is protected by the Federal Confidentiality of Alcohol and Drug Abuse Patient Records regulations: The Federal rules restrict any use of the information to criminally investigate or prosecute any alcohol or drug abuse patient.[facility] the event this information is protected by the Federal Confidentiality of Alcohol and Drug Abuse Patient Records regulations: The Federal rules restrict any use of the information to criminally investigate or prosecute any alcohol or drug abuse patient.[facility] Reason for Visit (unrecogniz ed section and content) Reason Comments Post Op Follow Up Post-op incisional h ernia repair, [facility] 08/24/22 Reason Comments Follow Up Incarcerated incisio nal hernia Specialty Diagnoses / Procedures Referred By Contac t Referred To Contact CT IMAGING Diagnoses Recurrent incisional hernia Procedures CT ABD/PEL W IVCON CT ABD & PELVIS W/CONTRAST Mendez Enciso MD [address] [place] [address] Ct Imaging Referral ID Status Reason Start Date Expiration Date V isits Requested Visits Authorized [id number] Closed Auto-Generate d Referral 04/20/2023 05/19/2024 1 1 Reason Comments Follow Up Review CT of abdomen and pelvis. Reason Comments Consult Reason Comments Post Op Follow Up Post-op incisional h ernia repair. Care Teams (unrecognized sec tion and content) Surgical Nurse Practitioner Relationship Specialty Start Date End Date Anna Juarez MD [address] [place], [place] [id number] PCP - General Internal Medicine 09/04/22 Surgical Nurse Practitioner Relationship Specialty Start Date End Date Anna Juarez MD [address] [place], [place] [id number] PCP - General Internal Medicine 09/04/22 Surgical Nurse Practitioner Relationship Specialty Start Date End Date Anna Juarez MD [address] [place] [address] PCP - General Internal Medicine 09/04/22 Surgical Nurse Practitioner Relationship Specialty Start Date End Date Anna Juarez MD [address] [place] [address] PCP - General Internal Medicine 09/04/22 Surgical Nurse Practitioner Relationship Specialty Start Date End Date Anna Juarez MD [address] [place] [address] PCP - General Internal Medicine 09/04/22 Surgical Nurse Practitioner Relationship Specialty Start Date End Date Anna Juarez MD [address] [place] [address] PCP - General Internal Medicine 09/04/22 Surgical Nurse Practitioner Relationship Specialty Start Date End Date Anna Juarez MD [address] [place] [address] PCP - General Internal Medicine 09/04/22 FOR RECORDS PERTAINING TO PATIENTS WHO ARE OR HAVE BEEN ENROLLED IN A CHEMICAL DEPENDENCY/SUBSTANCEABUSE PROGRAM, SOME INFORMATION MAY BE OMITTED. This clinical summary was aggregated from multiple sources. Caution should be exercised in using it in the provision of clinical care. This summary normalizes information from multiple sources, and as a consequence, information in this document may materially change the coding, format and clinical context of patient data. In addition, data may be omitted in some cases. CLINICAL DECISIONS SHOULD BE BASED ON THE PRIMARY CLINICAL RECORDS. [facility]. provides no warranty or guarantee of the accuracy or completeness of information in this document.
== END | disposition home or self-care (01) ==
LOC: MTRAD 15:30
PROVIDERS: PCP Internal Medicine; Referring Provider Physician Assistant; Visit Provider Physician Assistant
DX: R05.9 Cough, unspecified (principal)
CPT/HCPCS: 71046

== ENCOUNTER → 2024-12-08 | Outpatient (CLI) | payer MEDICARE, BC, MEDICAID, SELFPAY ==
[2024-12-08 09:40] LABS: Mucous, Urine 0 SEEN /hpf (<or=2+); Red Blood Cells-Urine 0 SEEN /hpf (0-5)
[2024-12-08 12:44] LABS: Color, Urine Yellow (Yellow); Glucose, Dipstick Normal (Normal); Ketone-Dipstick Negative (Negative); Leukocyte Esterase-Dipstick 25 /ul (Negative); Nitrite-Dipstick Negative (Negative); Occult Blood-Urine 25 /ul (Negative); Protein-Dipstick 15 mg/dl (Negative); Specific Gravity, Urine 1.015 (1.002-1.030); Urine Clarity Turbid (Clear); Urine Urobilinogen 1 mg/dl (Normal)
[2024-12-08 12:46] LABS: Urine Bilirubin Dipstick 1 mg/dL (Negative)
[2024-12-08 12:53] LABS: Absolute Lymphocyte Count 0.82 X10^3/uL (0.83-4.51); Absolute Neutrophil Count 7.7 X10^3/uL (2.0-7.7); Basophil# 0.05 X10^3/uL; Basophil% 0.5 % (0-1); Eosinophil# 0.13 X10^3/uL; Eosinophils% 1.3 % (0-5); Hematocrit 42.7 % (37-47); Hemoglobin 13.6 g/dL (12.0-15.0); Lymphocyte # 0.82 X10^3/ul (0.83-4.51); Lymphocyte % 8.4 % (19-41); Mean Corp Hgb Conc 31.9 g/dL (32-36); Mean Corpuscular Hgb 29.9 pg (27.0-32.0); Mean Corpuscular Volume 93.8 fL (81-99); Mean Platelet Vol. 9.6 fl (6.2-12.0); Monocyte# 0.93 X10^3/uL; Monocyte% 9.6 % (0-10); NRBC Flagged by Analyzer 0 % (0-5); Neutrophil # 7.74 X10^3/uL (2.7-7.7); Neutrophil % 79.7 % (47-70); Platelet Count 212 K/mm3 (150-450); RBC Distribution Width CV 15.9 % (11.6-14.6); RBC Distribution Width SD 54.4 fl (35.1-43.9); Red Blood Count 4.55 M/mm3 (4.2-5.4); White Blood Count 9.7 K/mm3 (4.4-11.0)
[2024-12-08 12:53] LABS: Squamous Epithelial Cells - UA 5-10 SEEN /hpf (5-10); White Blood Cells 5-10 SEEN /hpf (0-5)
[2024-12-08 12:54] LABS: Bacteria 2+ /hpf (None Seen); Renal Epithelial Cells 0-5 SEEN /hpf (0-5)
[2024-12-08 14:10] LABS: ALB/GLOB Ratio 0.8 RATIO (0.9-2.4); AST(SGOT) 8 U/L (15-37); Alanine Aminotransfer ALT/SGPT 15 U/L (13-56); Albumin, Serum 3.2 g/dL (3.2-5.0); Alkaline Phosphatase 110 U/L (45-117); Anion Gap 8 (5-15); BUN 14 mg/dL (7-18); BUN/Creat Ratio 13.7 RATIO (10-20); Chloride 106 mmol/L (98-107); Cholesterol 201 mg/dL (200); Creatinine, Serum 1.02 mg/dL (0.55-1.02); EST Glomerular Filtration Rate 55 mL/min (>60); Est Glom Filt Rate - Afr Amer 67 mL/min (>60); Globulin 4.1 g/dL (2.2-4.2); Glucose 120 mg/dL (74-106); High Density Lipoprotein 65 mg/dL; Potassium 4.1 mmol/L (3.5-5.1); Protein, Total 7.3 g/dL (6.4-8.2); Sodium Level 137 mmol/L (136-145); Triglycerides 91 mg/dL; Very Low Density Lipoprotein 18 mg/dL (5-40)
== END | disposition home or self-care (01) ==
LOC: BIMLAB 09:08
PROVIDERS: PCP Internal Medicine; Referring Provider Internal Medicine; Visit Provider Internal Medicine
DX: I10 Essential (primary) hypertension (principal); R53.81 Other malaise; R53.83 Other fatigue; R82.90 Unspecified abnormal findings in urine
CPT/HCPCS: 36415; 80053; 80061; 81001; 85025; 87077; 87086; 87088

== ENCOUNTER 2024-12-12 14:24 | Inpatient (IN) | payer MEDICARE, BC, MEDICAID, SELFPAY ==
[2024-12-12] VITALS (15 sets, daily range): BP systolic 99–170; BP diastolic 62–100; PULSE 66–80; RESP 16–32; TEMP 37–38.2; O2SAT 80–96; BMI 36.1; BMI 46.3
--- NOTE | 2024-12-12 15:31 | EKG12_ITS ---
Test Reason : SOB' HYPOXIA Blood Pressure : */* mmHG Vent. Rate : 75 BPM Atrial Rate : 75 BPM P-R Int : 148 ms QRS Dur : 92 ms QT Int : 374 ms P-R-T Axes : 44 -26 54 degrees QTcB Int : 417 ms Normal sinus rhythm Normal ECG Confirmed by ELENITA SHELTON, DAVE ([id number]), editor city EMELINA CORREA ([id number]) on 12/14/2024 7:06:43 AM Referred By: Confirmed By: DAVE KWONG MD
--- NOTE | 2024-12-12 15:33 | EX.ED.DYSGE1 ---
HPI History of Present Illness Chief Complaint: Shortness of Breath Detail of Chief Complaint: Shortness of breath, productive cough and hypoxia per EMS Informant: patient, family and EMS Onset/Context/Timing Onset: Days (Onset of illness December 05) Context: Sudden Onset Timing: Continuous and Waxes and wanes Quality: Cough Location: Respiratory Current Severity: Moderate Maximum Severity: Moderate Worsened by: Nothing Relieved by: Nothing Associated Symptoms Associated Symptoms: Shaking chills and diaphoresis Wednesday Narrative Narrative: Patient is an 84-year-old woman. She lives alone. She has a history of hypertension. She presents with respiratory symptoms that started December 05. She was seen by physician on Wednesday and [facility] physician contacted her and stated she had a urinary tract infection. Patient denies dysuria, frequency urgency or hematuria. Patient's complaint is cough. The cough is productive of green thick sputum. Patient reports shaking chills and diaphoresis to the point that her night where and sheets were soaked. This occurred on Wednesday. Patient denies headache, visual, ocular auditory symptoms. She specifically denied rhinorrhea, congestion, postnasal drainage with sore throat. She does have slight change in her voice. She may have had contact with others that are ill. She denies abdominal pain, nausea, vomiting or diarrhea. She denies myalgias or arthralgias. She denies swelling of her joints. She denies rash. Patient denies history of bronchiectasis, chronic bronchitis, asthma or COPD. She denies wheezing. Prior similar symptoms: Yes Recent Illness/[facility]ospital[facility]: [facility] Medical History Malaise and fatigue Pulmonary infiltrate Cough Eye abnormalities History of hypertension Obesity History of abdominal aortic aneurysm (AAA) Hyperlipidemia Venous insufficiency of both lower extremities Intertriginous dermatitis associated with moisture Urinary incontinence, mixed Bilateral lower extremity edema History of skin cancer History of COVID-19 History of uterine cancer Hypertension Home Medications ?Medication ?Instructions ?Recorded ?Last Taken ?Type amlodipine 5 mg tablet 5 mg PO DAILY #90 TABLETS 04/11/24 Unknown Rx amoxicillin 875 mg-potassium 1 tab PO BID #14 tabs 12/12/24 Unknown Rx clavulanate 125 mg tablet Allergy/AdvReac Type Severity Reaction Status Date / Time rosuvastatin (From Crestor) Allergy Severe stomach Verified 12/12/24 14:25 pains shellfish derived Allergy Severe MOUTH SORES Verified 12/12/24 14:25 sulfamethoxazole (From Allergy Unknown unknown Verified 12/12/24 14:25 Bactrim) trimethoprim (From Bactrim) Allergy Unknown unknown Verified 12/12/24 14:25 Family History Son Alcoholism Grandmother No problems noted. Mother Heart disease Hypertension CVA (cerebral vascular accident) Father Cancer throat Surgical History History of recent surgery History of hernia repair Hx of endovascular stent graft for abdominal aortic aneurysm History of hysterectomy Social History Smoking Status: Never smoker alcohol intake: never substance use type: does not use what type of physical activity do you participate in: walking and aerobics ROS ROS ED Constitutional Constitutional ED: Reports chills, fever(s), subjective and sweats; Denies weight loss Eyes Eyes: Denies blurry vision or change in vision ENT ENT ED: Denies ear pain, rhinorrhea or sore throat Cardiovascular Cardiovascular: Denies chest pain, orthopnea, palpitations or paroxysmal nocturnal dyspnea Respiratory/Chest Respiratory/Chest: Reports cough, dyspnea, dyspnea on exertion and sputum; Denies orthopnea or paroxysmal nocturnal dyspnea Gastrointestinal Gastrointestinal: Denies abdominal pain, diarrhea, nausea or vomiting Genitourinary Genitourinary ED: Denies dysuria, hematuria or urinary frequency Musculoskeletal Musculoskeletal: Denies arthralgias, back pain, myalgias or neck pain Integumentary Denies Abrasions or rash Neurologic Neurologic: Denies headache(s) or paresthesias Endocrine Endocrinology: Denies cold intolerance or heat intolerance Hematologic/Lymphatic Hematologic/Lymphatic: Reports systems reviewed and no addt'l complaints, except as documented EXAM Physical Exam Const Vital Signs: 12/12/24 14:25 12/12/24 15:24 12/12/24 15:48 Temperature 99.4 F H 100.6 F H Temperature Source Oral Oral Pulse Rate 80 73 Respiratory Rate 16 29 H Respiratory Effort Respiratory Depth Respiratory Pattern Blood Pressure 170/100 H 123/71 H Blood Pressure Mean 123 88 Pulse Ox 93 96 93 Oxygen Delivery Method Nasal Cannula Nasal Cannula Nasal Cannula Oxygen Flow Rate (L/min) 3 3 3 12/12/24 15:48 12/12/24 15:49 12/12/24 16:05 Temperature 100.6 F H Temperature Source Oral Pulse Rate 75 Respiratory Rate 29 H Respiratory Effort Short of Breath Respiratory Depth Shallow Respiratory Pattern Tachypnea Tachypnea Blood Pressure 134/68 H Blood Pressure Mean 90 Pulse Ox 94 Oxygen Delivery Method Nasal Cannula Oxygen Flow Rate (L/min) 3 Positive well nourished and well developed Constitutional Narrative: Patient is tachypneic and has conversational dyspnea. She also feels warmer than initial temperature of 99 4. General Appearance ED: well developed; Negative for pallor HEENT Reports dry mucous membranes HEENT Narrative: Posterior pharynx without erythema or exudate. Negative for trauma or tenderness Mouth ED: Yes dry mucous membranes Mouth: dry mucous membranes Eyes PERRL and EOMs intact bilaterally General Eye ED: Negative for pale conjunctiva or scleral icterus Neck no lymphadenopathy, supple and no JVD Chest Wall inspection of chest normal and palpation of chest normal Resp No normal respiratory effort and No clear to auscultation bilaterally Resp Narrative: Scattered inspiratory rales. There is no expiratory wheezing or rhonchi appreciated. Cardio regular rate, regular rhythm, S1 normal heart sound, S2 normal heart sound and no murmurs GI normal to inspection, nondistended, normoactive bowel sounds, non-tender, non-distended and no masses; Negative for hepatosplenomegaly Back/Spine no CVA tenderness Back/Spine Narrative: Inspection of the back is normal. Extremity normal to inspection General Extremety ED: Negative for edema or tenderness General Extremity: Negative for edema Neuro oriented x3 and CN's II-XII intact bilaterally Neuro Narrative: Moves all extremities. Sensorium / Orientation: alert Psych mental status grossly normal Skin no rashes or lesions noted, no wounds and skin turgor normal General Skin Exam: elasticity normal; Negative for jaundice or pallor Sepsis Attestation Sepsis Alert: Yes Sepsis Attestation: Agree w/Sepsis Date exam was performed: 12/12/24 Time exam was performed: 15:39 Possible Source of Sepsis: Pulmonary Sepsis Organ Dysfunction Criteria Present: None Supportive Findings: Patient had a 36 mm drop in her blood pressure. She received a liter bolus. MDM MDM MDM Narrative Medical decision making narrative: With reported abnormal urinary results from Wednesday will obtain straight cath urine to determine if she does have a urinary tract infection. Patient with respiratory symptoms. With her having purulent sputum, tachypnea and fever sepsis workup was initiated. She was started on Rocephin and azithromycin. The Rocephin will also cover urologic pathogens. Since she is not hypotensive she did not receive a fluid bolus. Prior records were reviewed. Based on review of prior records patient also has hyperlipidemia, prior pneumonia, history of skin cancer and history of gynecologic cancer diagnosed in 2009. History & Record Review Additional record(s) reviewed:: Prior inpatient record, Prior outpatient record, Prior ED visit and Prior labs Lab Data Attestation: I reviewed the patient's lab results. Lab results narrative: White count is elevated at 12.0 thousand. There is a slight shift with no bandemia. H&H is normal. Comprehensive metabolic panel reveals slight elevation of creatinine of 1.07 with an estimated GFR of 52. Alkaline phosphatase is elevated to 22. This is nonspecific. Lactate is normal at 1.4. Labs: Laboratory Results - last 24 hr 12/12/24 15:20 WBC 12.0 H RBC 4.43 Hgb 13.3 Hct 42.0 MCV 94.8 MCH 30.0 MCHC 31.7 L RDW Std Deviation 55.8 H RDW Coeff of Toribio 16.1 H Plt Count 286 MPV 8.7 Immature Gran % (Auto) 1.500 H Neut % (Auto) 75.6 H Lymph % (Auto) 9.4 L [place] % (Auto) 12.2 H Eos % (Auto) 0.4 Baso % (Auto) 0.9 Absolute Neuts (auto) 9.1 H Absolute Lymphs (auto) 1.13 Nucleated RBC % 0.3 PT 14.1 INR 1.1 APTT 32.0 Sodium 140 Potassium 4.1 Chloride 106 Carbon Dioxide 28.0 Anion Gap 6 BUN 18 Creatinine 1.07 H Est GFR (MDRD) Af Amer 63 Est GFR (MDRD) Non-Af 52 L BUN/Creatinine Ratio 16.8 Glucose 99 Lactic Acid 1.4 Calcium 9.3 Total Bilirubin 0.70 AST 12 L ALT 16 Alkaline Phosphatase 222 H Total Protein 7.3 Albumin 2.7 L Globulin 4.6 H Albumin/Globulin Ratio 0.6 L Radiography Chest X-Ray - ED: 2 View and Read by ED Physician (2 view chest x-ray Howard reviewed interpreted by me at 1641. Patient has a right middle lobe pneumonia. Cardiac size is normal. Osseous structures reveal no acute process. [place] is not widened.) EKG Initial EKG: Attestation: I personally reviewed and interpreted this EKG as follows: Interpretation: Sinus Rhythm (Rate is 75. The EKG is normal. There is artifact. WI interval is under 48 ms. Cures duration 92 ms. QT duration 3 and 74 ms. [place] is normal. EKG in my opinion is normal) Discharge Plan Dx/Rx/DC Orders Clinical Impression: Acute hypoxemic respiratory failure, History of aneurysm, Right middle lobe pneumonia, Elevated serum creatinine, Elevated blood pressure reading with diagnosis of hypertension, SIRS (systemic inflammatory response syndrome) Disposition Disposition: Acute Care [facility]
[2024-12-12 15:48] LABS: Absolute Lymphocyte Count 1.13 X10^3/uL (0.83-4.51); Absolute Neutrophil Count 9.1 X10^3/uL (2.0-7.7); Basophil# 0.11 X10^3/uL; Basophil% 0.9 % (0-1); Eosinophil# 0.05 X10^3/uL; Eosinophils% 0.4 % (0-5); Hemoglobin 13.3 g/dL (12.0-15.0); Lymphocyte # 1.13 X10^3/ul (0.83-4.51); Lymphocyte % 9.4 % (19-41); Mean Corp Hgb Conc 31.7 g/dL (32-36); Mean Corpuscular Volume 94.8 fL (81-99); Mean Platelet Vol. 8.7 fl (6.2-12.0); Monocyte# 1.46 X10^3/uL; Monocyte% 12.2 % (0-10); NRBC Flagged by Analyzer 0.3 % (0-5); Neutrophil # 9.05 X10^3/uL (2.7-7.7); Neutrophil % 75.6 % (47-70); Platelet Count 286 K/mm3 (150-450); RBC Distribution Width CV 16.1 % (11.6-14.6); RBC Distribution Width SD 55.8 fl (35.1-43.9); Red Blood Count 4.43 M/mm3 (4.2-5.4)
[2024-12-12 16:00] LABS: Lactic Acid 1.4 mmol/L (0.4-1.9)
[2024-12-12 16:07] LABS: International Normalized Ratio 1.1; Prothrombin Time (Protime)PT. 14.1 SECONDS (11.7-14.9)
[2024-12-12 16:10] LABS: ALB/GLOB Ratio 0.6 RATIO (0.9-2.4); AST(SGOT) 12 U/L (15-37); Alanine Aminotransfer ALT/SGPT 16 U/L (13-56); Albumin, Serum 2.7 g/dL (3.2-5.0); Alkaline Phosphatase 222 U/L (45-117); Anion Gap 6 (5-15); BUN 18 mg/dL (7-18); BUN/Creat Ratio 16.8 RATIO (10-20); Calcium,Total 9.3 mg/dL (8.5-10.1); Chloride 106 mmol/L (98-107); Creatinine, Serum 1.07 mg/dL (0.55-1.02); EST Glomerular Filtration Rate 52 mL/min (>60); Est Glom Filt Rate - Afr Amer 63 mL/min (>60); Globulin 4.6 g/dL (2.2-4.2); Glucose 99 mg/dL (74-106); Potassium 4.1 mmol/L (3.5-5.1); Protein, Total 7.3 g/dL (6.4-8.2); Sodium Level 140 mmol/L (136-145)
--- NOTE | 2024-12-12 16:28 | RAD_ITS ---
PROCEDURE: CHEST PA AND LATERAL REASON FOR EXAM: Productive cough, hypoxia, tachypnea. TECHNIQUE: Frontal and lateral views of the chest. COMPARISON: 09/05/2024. FINDINGS: The heart size is normal. The mediastinal contour is unremarkable. Right midlung and basilar and left basilar consolidation suspicious for infection. The bones are unremarkable. RAD/Chest PA and Lateral IMPRESSION: Findings suspicious for bilateral pneumonia. Reading Location: [id number]
[2024-12-12 16:46] LABS: Mucous, Urine 0 SEEN /hpf (<or=2+); Red Blood Cells-Urine 0 SEEN /hpf (0-5)
[2024-12-12] MEDS: Ceftriaxone 2 GM in 0.9% Normal Saline (50mL MB+) 50 ML IV (16:54)
[2024-12-12] MEDS: 0.9% Normal Saline (1000mL) 1,000 ML 1000 ML IV (16:59)
--- NOTE | 2024-12-12 17:03 | PCM.HP.STD ---
HPI - General General Date of Admission: 12/12/24 Date of Service: 12/12/24 Chief Complaint: Shortness of breath HPI Narrative ELA JOHNSON, is a 84 F in relatively good health with past medical history significant only for essential hypertension who presented to the emergency department with shortness of breath. Per patient symptoms have been ongoing for the past 1 week. She did also experience cough which is nonproductive did experience subjective fever and chills. Given the progressive nature of her symptoms patient presented to the emergency department imaging studies demonstrated features consistent with pneumonia antibiotics initiated per protocol admitted to regular nursing floor for further management [facility] Medical History (Updated 12/12/24 @ 17:[address] Faustino Brewer MD) History of hypertension Community acquired pneumonia Malaise and fatigue Pulmonary infiltrate Cough Eye abnormalities Obesity History of abdominal aortic aneurysm (AAA) Hyperlipidemia Venous insufficiency of both lower extremities Intertriginous dermatitis associated with moisture Urinary incontinence, mixed Bilateral lower extremity edema History of skin cancer History of COVID-19 History of uterine cancer Hypertension Home Medications ?Medication ?Instructions ?Recorded ?Last Taken ?Type amlodipine 5 mg tablet 5 mg PO DAILY #90 TABLETS 04/11/24 Unknown Rx amoxicillin 875 mg-potassium 1 tab PO BID #14 tabs 12/12/24 Unknown Rx clavulanate 125 mg tablet Allergy/AdvReac Type Severity Reaction Status Date / Time rosuvastatin (From Crestor) Allergy Severe stomach Verified 12/12/24 14:25 pains shellfish derived Allergy Severe MOUTH SORES Verified 12/12/24 14:25 sulfamethoxazole (From Allergy Unknown unknown Verified 12/12/24 14:25 Bactrim) trimethoprim (From Bactrim) Allergy Unknown unknown Verified 12/12/24 14:25 Family History Son Alcoholism Grandmother No problems noted. Mother Heart disease Hypertension CVA (cerebral vascular accident) Father Cancer throat Surgical History (Updated 12/12/24 @ 17:[address] Faustino Brewer MD) History of recent surgery History of hernia repair Hx of endovascular stent graft for abdominal aortic aneurysm History of hysterectomy Social History Smoking Status: Never smoker alcohol intake: never substance use type: does not use what type of physical activity do you participate in: walking and aerobics ROS ROS Narrative GENERAL: fever, chills, night sweats, anorexia HEENT: denies headache, sinus congestion, or drainage, dysphagia RESPIRATORY: cough, sputum production, shortness of breath, dyspnea on exertion CARDIAC: denies chest pain, palpitations, orthopnea, PND GASTROINTESTINAL: denies abdominal pain, nausea, vomiting, melena, GENITOURINARY: denies dysuria, urgency, frequency, heamaturia EXTREMITY: denies swelling MUSCULOSKELETAL: denies current joint pain or tenderness NEUROLOGIC: denies focal numbness, weakness, tingling HEMATOLOGIC: denies easy bruising and/or hemorrhage INTEGUMENT: denies rashes PSYCHIATRIC: denies suicidal or homicidal ideation Vital Signs Vital Signs Vital Signs: 12/12/24 14:25 12/12/24 15:24 12/12/24 15:48 Temperature 99.4 F H 100.6 F H Temperature Source Oral Oral Pulse Rate 80 73 Respiratory Rate 16 29 H Respiratory Effort Respiratory Depth Respiratory Pattern Blood Pressure 170/100 H 123/71 H Blood Pressure Mean 123 88 Pulse Ox 93 96 93 Oxygen Delivery Method Nasal Cannula Nasal Cannula Nasal Cannula Oxygen Flow Rate (L/min) 3 3 3 12/12/24 15:48 12/12/24 15:49 12/12/24 16:05 Temperature 100.6 F H Temperature Source Oral Pulse Rate 75 Respiratory Rate 29 H Respiratory Effort Short of Breath Respiratory Depth Shallow Respiratory Pattern Tachypnea Tachypnea Blood Pressure 134/68 H Blood Pressure Mean 90 Pulse Ox 94 Oxygen Delivery Method Nasal Cannula Oxygen Flow Rate (L/min) 3 Physical Exam Narrative GENERAL: cooperative but appears ill looking HEENT: Atraumatic; normocephalic EYES; Anicteric, Normal Conjunctiva NECK; supple, normal thyroid, RESPIRATORY: Diminished to auscultation CARDIOVASCULAR: Regular S1 S2, GI: soft, normoactive bowel sounds, : No Renal angle tenderness; EXTREMITIES: No edema, no clubbing, MUSCULOSKELETAL: no muscle wasting NEURO: Awake; no lateralizing signs. SKIN: No Rash PSYCH; Flat affect Results Lab / Micro Data 12/12/24 15:20 12/12/24 15:20 Labs: Laboratory Results - last 24 hr 12/12/24 15:20: WBC 12.0 H, RBC 4.43, Hgb 13.3, Hct 42.0, MCV 94.8, MCH 30.0, MCHC 31.7 L, RDW Std Deviation 55.8 H, RDW Coeff of Toribio 16.1 H, Plt Count 286, MPV 8.7, Immature Gran % (Auto) 1.500 H, Neut % (Auto) 75.6 H, Lymph % (Auto) 9.4 L, [place] % (Auto) 12.2 H, Eos % (Auto) 0.4, Baso % (Auto) 0.9, Absolute Neuts (auto) 9.1 H, Absolute Lymphs (auto) 1.13, Nucleated RBC % 0.3, PT 14.1, INR 1.1, APTT 32.0, Sodium 140, Potassium 4.1, Chloride 106, Carbon Dioxide 28.0, Anion Gap 6, BUN 18, Creatinine 1.07 H, Est GFR (MDRD) Af Amer 63, Est GFR (MDRD) Non-Af 52 L, BUN/Creatinine Ratio 16.8, Glucose 99, Lactic Acid 1.4, Calcium 9.3, Total Bilirubin 0.70, AST 12 L, ALT 16, Alkaline Phosphatase 222 H, Total Protein 7.3, Albumin 2.7 L, Globulin 4.6 H, Albumin/Globulin Ratio 0.6 L Assessment & Plan Assessment/Plan (1) Community acquired pneumonia: PLAN: Plan Patient is an 84-year-old lady presented with progressive shortness of breath with associated fever chills 1. Pneumonia - Suspected to be secondary to streptococcal pneumonia, Blood and sputum cultures sent. Patient placed on Rocephin and Zithromax and placed on oxygen titrated to keep Pulse Ox greater than 90. As part of patient's management ordered viral respiratory panel as well as COVID assay 2. Hypertension ? Blood pressure controlled, home medications continued with dose adjustment as needed 3. History of AAA Status post endovascular repair 4. Obesity ? Complicating care weight loss advised 5. DVT prophylaxis ? On enoxaparin Time spent in the patient's overall evaluation,decision-making process, review of diagnostic data, adjustment of management, discussion with other providers, nursing nursing and ancillary staff involved in patient's care documentation, 55 Minutes Advance planning; did discuss with the patient and family regarding advanced directives as well as CODE STATUS. Did explain the various scenarios involved ( FULL CODE, DNR CCA, DNR CCA with no intubation, and DNR CC and what each meant) patient elected to be DNR CCA no intubation. Order was placed. Time spent on discussion 18 minutes. Charges/Coding Multi Select Codes Visit Charges Visit Charges: 31295 Init Hosp L2 Hospitalists' Procedures Procedures: 68598 Advncd Care Plan 30 Min
[2024-12-12] MEDS: Azithromycin 500 MG in 0.9% Normal Saline (250mL Bag) 250 ML 255 MG IV (17:04)
[2024-12-12] MEDS: Acetaminophen 325 MG Tablet 650 MG PO (17:30)
[2024-12-12 17:32] LABS: Color, Urine Amber (Yellow); Glucose, Dipstick Normal (Normal); Ketone-Dipstick 5 mg/dl (Negative); Leukocyte Esterase-Dipstick 100 /ul (Negative); Nitrite-Dipstick Negative (Negative); Occult Blood-Urine 25 /ul (Negative); Protein-Dipstick 30 mg/dl (Negative); Specific Gravity, Urine 1.015 (1.002-1.030); Urine Clarity Sl. Cloudy (Clear); Urine Urobilinogen 4 mg/dl (Normal)
[2024-12-12 17:44] LABS: Urine Bilirubin Dipstick 1 mg/dL (Negative)
[2024-12-12 17:45] LABS: Bacteria 3+ /hpf (None Seen); Squamous Epithelial Cells - UA 0-5 SEEN /hpf (5-10); White Blood Cells 5-10 SEEN /hpf (0-5)
--- NOTE | 2024-12-12 21:21 | CPS ---
This PROJECT PORTFOLIO ANALYST attempted to collect a respiratory panel swab, patient refused to be swabbed.
[2024-12-13] VITALS (18 sets, daily range): BP systolic 111–146; BP diastolic 63–82; PULSE 64–76; RESP 19–32; TEMP 36.4–37.4; O2SAT 87–98
--- NOTE | 2024-12-13 00:53 | NURSING ---
per kip, resp therapy, pt refused swab.
[2024-12-13] MEDS: Nystatin Powder 15gm Bottle 1 APPLIC TOPICAL ×3 (04:40→23:27)
[2024-12-13] MEDS: Albuterol 2.5 MG/3 ML VIAL.NEB. INHALATION ×2 (05:30→17:38)
[2024-12-13 05:40] LABS: Absolute Lymphocyte Count 0.85 X10^3/uL (0.83-4.51); Absolute Neutrophil Count 7.6 X10^3/uL (2.0-7.7); Basophil# 0.08 X10^3/uL; Basophil% 0.8 % (0-1); Eosinophil# 0.14 X10^3/uL; Eosinophils% 1.4 % (0-5); Hematocrit 39.1 % (37-47); Lymphocyte # 0.85 X10^3/ul (0.83-4.51); Lymphocyte % 8.5 % (19-41); Mean Corp Hgb Conc 30.7 g/dL (32-36); Mean Corpuscular Hgb 29.9 pg (27.0-32.0); Mean Corpuscular Volume 97.3 fL (81-99); Mean Platelet Vol. 9.3 fl (6.2-12.0); Monocyte# 1.11 X10^3/uL; Monocyte% 11.2 % (0-10); NRBC Flagged by Analyzer 0.2 % (0-5); Neutrophil # 7.64 X10^3/uL (2.7-7.7); Neutrophil % 76.8 % (47-70); Platelet Count 233 K/mm3 (150-450); RBC Distribution Width CV 16.2 % (11.6-14.6); RBC Distribution Width SD 57.5 fl (35.1-43.9); Red Blood Count 4.02 M/mm3 (4.2-5.4)
[2024-12-13 05:51] LABS: Anion Gap 4 (5-15); BUN 20 mg/dL (7-18); BUN/Creat Ratio 23.4 RATIO (10-20); Calcium,Total 8.7 mg/dL (8.5-10.1); Chloride 110 mmol/L (98-107); Creatinine, Serum 0.85 mg/dL (0.55-1.02); EST Glomerular Filtration Rate 68 mL/min (>60); Est Glom Filt Rate - Afr Amer 82 mL/min (>60); Estimated Creatinine Clearance 61.21 ml/min; Glucose 106 mg/dL (74-106); Magnesium 2.2 mg/dL (1.6-2.6); Potassium 4.4 mmol/L (3.5-5.1); Sodium Level 142 mmol/L (136-145)
[2024-12-13] MEDS: 0.9% Saline Lock 10 ML Syringe IV ×2 (06:40→23:25)
--- NOTE | 2024-12-13 08:54 | PN.HOSP_ITS ---
Reason for Visit Reason for Visit: Diagnoses Pneumonia, unspecified organism (12/12/24) Subjective Subjective Patient is an 84-year-old lady presented with progressive shortness of breath with associated fever chills. Patient was also later found to have abnormal urinalysis consistent with acute cystitis Objective Data Objective Data Vital Signs: Vital Signs Temp Pulse Resp BP Pulse Ox O2 Del Method O2 Flow Rate 97.5 F L 66 26 H 118/64 93 Nasal Cannula 5 12/13/24 08:00 12/13/24 08:00 12/13/24 08:00 12/13/24 08:00 12/13/24 08:00 12/13/24 08:21 12/13/24 08:21 FiO2 95 12/12/24 23:15 Oxygen Flow Rate (L/min) 5 Oxygen Delivery Method Nasal Cannula Weight: 114.8 kg Body Mass Index (BMI) 46.3 Intake & Output: Intake and Output for Last 24 Hours 12/11/24 12/12/24 12/13/24 23:59 23:59 23:59 Intake Total 1305 / 1305 200 / 200 Balance 1305 / 1305 200 / 200 Lab / Micro Data 12/13/24 04:25 12/13/24 04:25 Labs: Laboratory Results - last 24 hr 12/12/24 15:20: WBC 12.0 H, RBC 4.43, Hgb 13.3, Hct 42.0, MCV 94.8, MCH 30.0, M CHC 31.7 L, RDW Std Deviation 55.8 H, RDW Coeff of Toribio 16.1 H, Plt Count 286, MPV 8.7, Immature Gran % (Auto) 1.500 H, Neut % (Auto) 75.6 H, Lymph % (Auto) 9.4 L, [place] % (Auto) 12.2 H, Eos % (Auto) 0.4, Baso % (Auto) 0.9, Absolute Neuts (auto) 9.1 H, Absolute Lymphs (auto) 1.13, Nucleated RBC % 0.3, PT 14.1, INR 1.1, APTT 32.0, Sodium 140, Potassium 4.1, Chloride 106, Carbon Dioxide 28.0, Anion Gap 6, BUN 18, Creatinine 1.07 H, Est GFR (MDRD) Af Amer 63, Est GFR (MDRD) Non-Af 52 L, BUN/Creatinine Ratio 16.8, Glucose 99, Lactic Acid 1.4, Calcium 9.3, Total Bilirubin 0.70, AST 12 L, ALT 16, Alkaline Phosphatase 222 H, Total Protein 7.3, Albumin 2.7 L, Globulin 4.6 H, Albumin/Globulin Ratio 0.6 L 12/12/24 16:40: Urine Color Caren, Urine Clarity Sl. Cloudy, Urine pH 6.0, Ur Specific [place] 1.015, Urine Protein 30 H, Urine Glucose (UA) Normal, Urine Ketones 5 H, Urine Occult Blood 25 H, Urine Nitrite Negative, Urine Bilirubin 1 H, Urine Urobilinogen 4 H, Ur Leukocyte Esterase 100 H, Urine RBC 0 SEEN, Urine WBC 5-10 SEEN, Ur Squamous Epith Cells 0-5 SEEN, Urine Bacteria 3+, Urine Mucus 0 SEEN 12/13/24 04:25: WBC 10.0, RBC 4.02 L, Hgb 12.0, Hct 39.1, MCV 97.3, MCH 29.9, M CHC 30.7 L, RDW Std Deviation 57.5 H, RDW Coeff of Toribio 16.2 H, Plt Count 233, MPV 9.3, Immature Gran % (Auto) 1.300 H, Neut % (Auto) 76.8 H, Lymph % (Auto) 8.5 L, [place] % (Auto) 11.2 H, Eos % (Auto) 1.4, Baso % (Auto) 0.8, Absolute Neuts (auto) 7.6, Absolute Lymphs (auto) 0.85, Nucleated RBC % 0.2, Sodium 142, Potassium 4.4, Chloride 110 H, Carbon Dioxide 28.0, Anion Gap 4 L, BUN 20 H, Creatinine 0.85, Estim Creat Clear Calc 61.21, Est GFR (MDRD) Af Amer 82, Est GFR (MDRD) Non-Af 68, BUN/Creatinine Ratio 23.4 H, Glucose 106, Calcium 8.7, Magnesium 2.2 Micro: Microbiology 12/12/24 15:45 Mucosa - Nose SARS-CoV-2, Influenza & RSV (PCR) - Final 12/12/24 15:50 Urine, Clean Catch Legionella Antigen - Final 12/12/24 15:50 Urine, Clean Catch Streptococcus pneumoniae Antigen (M - Final Radiography Diagnostic Testing: Radiology Impression Chest X-Ray 12/12/24 16:28 IMPRESSION: Findings suspicious for bilateral pneumonia. Reading Location: [facility] Physical Exam Narrative GENERAL: cooperative but appears ill looking HEENT: Atraumatic; normocephalic EYES; Anicteric, Normal Conjunctiva NECK; supple, normal thyroid, RESPIRATORY: Diminished to auscultation CARDIOVASCULAR: Regular S1 S2, GI: soft, normoactive bowel sounds, : No Renal angle tenderness; EXTREMITIES: No edema, no clubbing, MUSCULOSKELETAL: no muscle wasting NEURO: Awake; no lateralizing signs. SKIN: No Rash PSYCH; Flat affect Assessment & Plan Assessment/Plan (1) Community acquired pneumonia: PLAN: Plan Patient is an 84-year-old lady presented with progressive shortness of breath with associated fever chills 1. Pneumonia - Suspected to be secondary to streptococcal pneumonia, Blood and sputum cultures sent. Patient placed on Rocephin and Zithromax and placed on oxygen titrated to keep Pulse Ox greater than 90. As part of patient's management ordered viral respiratory panel as well as COVID assay 2. Hypertension ? Blood pressure controlled, home medications continued with dose adjustment as needed 3. History of AAA Status post endovascular repair 4. Class III obesity with BMI of 46.3 ? Complicating care weight loss advised 5. Acute cystitis ? Present on admission patient currently on ceftriaxone 6. DVT prophylaxis ? On enoxaparin Time spent in the patient's overall evaluation,decision-making process, review of diagnostic data, adjustment of management, discussion with other providers, nursing nursing and ancillary staff involved in patient's care documentation, 50 Minutes Charges/Coding Visit Charges Inpatient E&M: 52141 [facility] L3
[2024-12-13] MEDS: Ceftriaxone 2 GM in 0.9% Normal Saline (50mL MB+) 50 ML IV (11:22)
[2024-12-13] MEDS: Menthol/Lanolin/Calamine/Znox 113 GM Tube 1 APPLIC TOPICAL ×2 (11:22→23:26)
[2024-12-13] MEDS: amLODIPine 5 MG Tablet PO (11:23)
--- NOTE | 2024-12-13 12:00 | CASEMGMT ---
TC carlyn Hurtado at [facility], referral made for SN, PT and OT. Will await decision to accept.
--- NOTE | 2024-12-13 12:08 | CASEMGMT ---
Addendum entered by Keturah Silva 12/13/24 12:31: Strata: 2 Original Note: RN?CM?TWIST PACKER?CM?to room to meet with patient for initial transition planning/care coordination?assessment.?RN?CM?introduced self and role at [facility].? Pt voices understanding and consents to?assessment?at this time.? Pt resting in bed in no distress at this time.? Pt is A/O at this time and answers all questions appropriately.?? Care providers, pharmacy, and demographics verified/updated at this time. PCP: Dr Juarez Specialists: none Preferred Pharmacy: [facility] Insurance: [facility] A/B, KATY Chu Prescription Benefit:?Yes Living Will/HPOA: Has both LW and HCPOA, stating dtr, Kateryna, and son, Gerry are joint agents. Pt made aware these are not on file @ [facility]. Pt called her dtr while KARY ELIZONDO in room and asked KARY ELIZONDO to let her daughter know what documents to bring in to be placed on file. No answer. VM left. also stated for dtr to call ANN Laurent RN, CM, if she has any questions and phone # provided. LNOK: Elsa Thomason, daughter; Gerry Hansen, son. Pt states she has a total of 3 adult children, but these are are the only ones I claim. Living Arrangements: Pt lives alone in [facility]. It is a 1 story apt with no steps to enter and states no concerns at home. Pt is independent with ADL's and manages her own medications. Pt states she uses the SNAP program and gets groceries from [employer]. AAoA: Pt has a CM, but she does not remember her name. She has aides from [employer] and is approved for them to come once a week for 4 hrs a day, but states 1/2 of the time they have been no-shows. She states she has informed her CM of this. She receives 14 home-delivered meals from [employer] and has a medical alert button. She would like to get a shower chair (no back-rest), if possible from [employer]. JAC Caceres, made aware. Transportation: Pt states either her daughter or friends drive and states no transportation concerns. DME: Pt has a walker, lift chair, pulse ox, medical alert, cane, rollator. She states if she is not able to get a shower chair through [email or web address], then she plans to purchase one this month. Pt does not have home O2. Made aware home amb testing will be completed prior to discharge. If home O2 is needed, pt is not sure what DME company she would like to get O2 from, stating she will need to talk to her daughter, Kateryna, about this first. Pt states no need for any further DME. HHC/SNF: [facility] (PT contracted from [facility]) and has been to [facility] for rehab. Pt states she would like to go home @ discharge and would like [facility] @ discharge and declines wanting list of other HHC options, unless [facility]. Pt voices no further concerns/needs. CM to follow for any further discharge planning/needs. Advised pt to ask for CM if any further questions/concerns/needs arise, voices understanding. Plan: Home w/HHC. Follow for possible need of home O2. Bettie TEJADAN RN CM
[2024-12-13] MEDS: Azithromycin 500 MG in 0.9% Normal Saline (250mL Bag) 250 ML 255 MG IV (12:25)
--- NOTE | 2024-12-13 16:03 | NURSING ---
All documentation by student nurse Carmen Barron reviewed by geriatric nursing assistant Sammie Davenport BSN, RN.
[2024-12-14] VITALS (16 sets, daily range): BP systolic 101–121; BP diastolic 55–71; PULSE 62–72; RESP 20–32; TEMP 36.6–37; O2SAT 87–95
[2024-12-14] MEDS: Nystatin Powder 15gm Bottle 1 APPLIC TOPICAL (04:15)
[2024-12-14] MEDS: Menthol/Lanolin/Calamine/Znox 113 GM Tube 1 APPLIC TOPICAL (04:15)
[2024-12-14] MEDS: Albuterol 2.5 MG/3 ML VIAL.NEB. INHALATION (04:35)
[2024-12-14 07:00] LABS: Absolute Lymphocyte Count 1.21 X10^3/uL (0.83-4.51); Absolute Neutrophil Count 5.9 X10^3/uL (2.0-7.7); Basophil# 0.07 X10^3/uL; Basophil% 0.8 % (0-1); Eosinophils% 3.6 % (0-5); Hematocrit 37.2 % (37-47); Hemoglobin 11.7 g/dL (12.0-15.0); Lymphocyte # 1.21 X10^3/ul (0.83-4.51); Lymphocyte % 14.3 % (19-41); Mean Corp Hgb Conc 31.5 g/dL (32-36); Mean Corpuscular Hgb 30.2 pg (27.0-32.0); Mean Corpuscular Volume 96.1 fL (81-99); Mean Platelet Vol. 9.2 fl (6.2-12.0); Monocyte# 0.85 X10^3/uL; Monocyte% 10.1 % (0-10); NRBC Flagged by Analyzer 0 % (0-5); Neutrophil # 5.86 X10^3/uL (2.7-7.7); Neutrophil % 69.3 % (47-70); Platelet Count 244 K/mm3 (150-450); RBC Distribution Width CV 16.3 % (11.6-14.6); RBC Distribution Width SD 57.1 fl (35.1-43.9); Red Blood Count 3.87 M/mm3 (4.2-5.4); White Blood Count 8.5 K/mm3 (4.4-11.0)
[2024-12-14 07:44] LABS: Anion Gap 6 (5-15); BUN 19 mg/dL (7-18); BUN/Creat Ratio 22.5 RATIO (10-20); Calcium,Total 9.2 mg/dL (8.5-10.1); Chloride 108 mmol/L (98-107); Creatinine, Serum 0.84 mg/dL (0.55-1.02); EST Glomerular Filtration Rate 69 mL/min (>60); Est Glom Filt Rate - Afr Amer 83 mL/min (>60); Estimated Creatinine Clearance 61.93 ml/min; Glucose 95 mg/dL (74-106); Potassium 4.2 mmol/L (3.5-5.1); Sodium Level 141 mmol/L (136-145)
--- NOTE | 2024-12-14 09:13 | CASEMGMT ---
Social Work- SW called [facility], as pt could not remember who her special education case manager is. JAC was informed that pt has services through the Care Coordination program and Tania Moreno is CM; contact [phone]. Fax for discharge: [phone]. Pt has one hour of aide service weekly provided by [employer], seven meals every fourteen days delivered by [employer], and a medical alert through [employer]. Faustino at [facility] noted admit date and diagnosis. NAJMA Mancera
[2024-12-14] MEDS: Ceftriaxone 2 GM in 0.9% Normal Saline (50mL MB+) 50 ML IV (09:14)
[2024-12-14] MEDS: amLODIPine 5 MG Tablet PO (09:18)
[2024-12-14] MEDS: Azithromycin 500 MG in 0.9% Normal Saline (250mL Bag) 250 ML 225 MG IV (10:09)
--- NOTE | 2024-12-14 10:38 | PN.HOSP_ITS ---
Reason for Visit Reason for Visit: Diagnoses Pneumonia, unspecified organism (12/12/24) Subjective Subjective Patient seen urine cultures so far positive for Gram Positive Cocci. Awaiting final identification and sensitivities. Patient oxygen requirement has also increased currently on 8 L/min flow Objective Data Objective Data Vital Signs: Vital Signs Temp Pulse Resp BP Pulse Ox O2 Del Method O2 Flow Rate 98.2 F 62 28 H 120/63 94 Nasal Cannula 8 12/14/24 08:26 12/14/24 08:26 12/14/24 08:26 12/14/24 08:26 12/14/24 10:15 12/14/24 10:15 12/14/24 10:15 FiO2 95 12/12/24 23:15 Oxygen Flow Rate (L/min) 8 Oxygen Delivery Method Nasal Cannula Weight: 114.8 kg Body Mass Index (BMI) 46.3 Intake & Output: Intake and Output for Last 24 Hours 12/12/24 12/13/24 12/14/24 23:59 23:59 23:59 Intake Total 1305 / 1305 1685 / 1685 350 / 350 Balance 1305 / 1305 1685 / 1685 350 / 350 Lab / Micro Data 12/14/24 05:21 12/14/24 05:21 Labs: Laboratory Results - last 24 hr 12/12/24 16:40: Urine Color Caren, Urine Clarity Sl. Cloudy, Urine pH 6.0, Ur Specific [place] 1.015, Urine Protein 30 H, Urine Glucose (UA) Normal, Urine Ketones 5 H, Urine Occult Blood 25 H, Urine Nitrite Negative, Urine Bilirubin 1 H, Urine Urobilinogen 4 H, Ur Leukocyte Esterase 100 H, Urine RBC 0 SEEN, Urine WBC 5-10 SEEN, Ur Squamous Epith Cells 0-5 SEEN, Urine Bacteria 3+, Urine Mucus 0 SEEN 12/14/24 05:21: WBC 8.5, RBC 3.87 L, Hgb 11.7 L, Hct 37.2, MCV 96.1, MCH 30.2, M CHC 31.5 L, RDW Std Deviation 57.1 H, RDW Coeff of Toribio 16.3 H, Plt Count 244, MPV 9.2, Immature Gran % (Auto) 1.900 H, Neut % (Auto) 69.3, Lymph % (Auto) 14.3 L, [place] % (Auto) 10.1 H, Eos % (Auto) 3.6, Baso % (Auto) 0.8, Absolute Neuts (auto) 5.9, Absolute Lymphs (auto) 1.21, Nucleated RBC % 0, Sodium 141, Potassium 4.2, Chloride 108 H, Carbon Dioxide 27.0, Anion Gap 6, BUN 19 H, Creatinine 0.84, Estim Creat Clear Calc 61.93, Est GFR (MDRD) Af Amer 83, Est GFR (MDRD) Non-Af 69, BUN/Creatinine Ratio 22.5 H, Glucose 95, Calcium 9.2 Micro: Microbiology 12/12/24 16:40 Urine, Catheterized Urine Culture - Preliminary Gram Positive Cocci 12/12/24 15:45 Mucosa - Nose SARS-CoV-2, Influenza & RSV (PCR) - Final 12/12/24 15:50 Urine, Clean Catch Legionella Antigen - Final 12/12/24 15:50 Urine, Clean Catch Streptococcus pneumoniae Antigen (M - Final Physical Exam Narrative GENERAL: cooperative but appears ill looking HEENT: Atraumatic; normocephalic EYES; Anicteric, Normal Conjunctiva NECK; supple, normal thyroid, RESPIRATORY: Diminished to auscultation CARDIOVASCULAR: Regular S1 S2, GI: soft, normoactive bowel sounds, : No Renal angle tenderness; EXTREMITIES: No edema, no clubbing, MUSCULOSKELETAL: no muscle wasting NEURO: Awake; no lateralizing signs. SKIN: No Rash PSYCH; Flat affect Assessment & Plan Assessment/Plan (1) Community acquired pneumonia: PLAN: Plan Patient is an 84-year-old lady presented with progressive shortness of breath with associated fever chills 1. Pneumonia - Suspected to be secondary to streptococcal pneumonia, Blood and sputum cultures sent. Patient placed on Rocephin and Zithromax and placed on oxygen titrated to keep Pulse Ox greater than 90. As part of patient's management ordered viral respiratory panel as well as COVID assay ? 12/14/2024 patient remains on oxygen currently 8 L/min flow 2. Hypertension ? Blood pressure controlled, home medications continued with dose adjustment as needed 3. History of AAA Status post endovascular repair 4. Class III obesity with BMI of 46.3 ? Complicating care weight loss advised 5. Acute cystitis ? Present on admission patient currently on ceftriaxone ? 12/14/2024;Patient seen urine cultures so far positive for Gram Positive Cocci. Awaiting final identification and sensitivities 6. DVT prophylaxis ? On enoxaparin 7. Physical deconditioning ? Requested for PT OT eval and social sciences department chair to assist with discharge planning Time spent in the patient's overall evaluation,decision-making process, review of diagnostic data, adjustment of management, discussion with other providers, nursing nursing and ancillary staff involved in patient's care documentation, 40 Minutes Charges/Coding Visit Charges Inpatient E&M: 07605 Subs Hosp L2
--- NOTE | 2024-12-14 13:15 | CASEMGMT ---
Updated Genesis at [facility] that pt will not dc today.
[2024-12-15] VITALS (11 sets, daily range): BP systolic 102–132; BP diastolic 59–88; PULSE 62–78; RESP 12–28; TEMP 36.1–37.1; O2SAT 77–95
[2024-12-15] MEDS: Menthol/Lanolin/Calamine/Znox 113 GM Tube 1 APPLIC TOPICAL ×2 (06:20→20:21)
[2024-12-15] MEDS: Nystatin Powder 15gm Bottle 1 APPLIC TOPICAL ×3 (06:20→20:21)
[2024-12-15 06:38] LABS: Absolute Lymphocyte Count 0.83 X10^3/uL (0.83-4.51); Absolute Neutrophil Count 4.5 X10^3/uL (2.0-7.7); Basophil# 0.07 X10^3/uL; Eosinophil# 0.49 X10^3/uL; Eosinophils% 7.1 % (0-5); Hematocrit 37.6 % (37-47); Hemoglobin 11.9 g/dL (12.0-15.0); Lymphocyte # 0.83 X10^3/ul (0.83-4.51); Lymphocyte % 12.1 % (19-41); Mean Corp Hgb Conc 31.6 g/dL (32-36); Mean Corpuscular Hgb 30.4 pg (27.0-32.0); Mean Corpuscular Volume 95.9 fL (81-99); Mean Platelet Vol. 8.9 fl (6.2-12.0); Monocyte% 11.7 % (0-10); NRBC Flagged by Analyzer 0 % (0-5); Neutrophil # 4.52 X10^3/uL (2.7-7.7); Neutrophil % 65.9 % (47-70); Platelet Count 259 K/mm3 (150-450); RBC Distribution Width CV 16.1 % (11.6-14.6); RBC Distribution Width SD 55.7 fl (35.1-43.9); Red Blood Count 3.92 M/mm3 (4.2-5.4); White Blood Count 6.9 K/mm3 (4.4-11.0)
[2024-12-15 07:10] LABS: Anion Gap 4 (5-15); BUN 18 mg/dL (7-18); Calcium,Total 9.2 mg/dL (8.5-10.1); Chloride 106 mmol/L (98-107); Creatinine, Serum 0.78 mg/dL (0.55-1.02); EST Glomerular Filtration Rate 75 mL/min (>60); Est Glom Filt Rate - Afr Amer 91 mL/min (>60); Estimated Creatinine Clearance 65.03 ml/min; Glucose 94 mg/dL (74-106); Potassium 4.2 mmol/L (3.5-5.1); Sodium Level 140 mmol/L (136-145)
[2024-12-15] MEDS: Albuterol 2.5 MG/3 ML VIAL.NEB. INHALATION (08:43)
--- NOTE | 2024-12-15 08:49 | PN.HOSP_ITS ---
Reason for Visit Reason for Visit: Diagnoses Pneumonia, unspecified organism (12/12/24) Subjective Subjective Patient seen still requiring significant amount of oxygen with 6 L at baseline with respiratory rate in the 30s. Did discuss with patient possibility of going to [facility] he is finally on board Objective Data Objective Data Vital Signs: Vital Signs Temp Pulse Resp BP Pulse Ox O2 Del Method O2 Flow Rate 97.7 F L 65 18 121/68 H 95 High Flow 6 12/15/24 08:06 12/15/24 08:46 12/15/24 08:46 12/15/24 08:06 12/15/24 08:46 12/15/24 08:46 12/15/24 08:46 FiO2 95 12/12/24 23:15 Oxygen Flow Rate (L/min) 6 Oxygen Delivery Method High Flow Weight: 114.8 kg Body Mass Index (BMI) 46.3 Intake & Output: Intake and Output for Last 24 Hours 12/13/24 12/14/24 12/15/24 23:59 23:59 23:59 Intake Total 1685 / 1685 1305 / 1305 Balance 1685 / 1685 1305 / 1305 Lab / Micro Data 12/15/24 05:39 12/15/24 05:39 Labs: Laboratory Results - last 24 hr 12/12/24 16:40: Urine Color Caren, Urine Clarity Sl. Cloudy, Urine pH 6.0, Ur Specific [place] 1.015, Urine Protein 30 H, Urine Glucose (UA) Normal, Urine Ketones 5 H, Urine Occult Blood 25 H, Urine Nitrite Negative, Urine Bilirubin 1 H, Urine Urobilinogen 4 H, Ur Leukocyte Esterase 100 H, Urine RBC 0 SEEN, Urine WBC 5-10 SEEN, Ur Squamous Epith Cells 0-5 SEEN, Urine Bacteria 3+, Urine Mucus 0 SEEN 12/15/24 05:39: WBC 6.9, RBC 3.92 L, Hgb 11.9 L, Hct 37.6, MCV 95.9, MCH 30.4, M CHC 31.6 L, RDW Std Deviation 55.7 H, RDW Coeff of Toribio 16.1 H, Plt Count 259, MPV 8.9, Immature Gran % (Auto) 2.200 H, Neut % (Auto) 65.9, Lymph % (Auto) 12.1 L, [place] % (Auto) 11.7 H, Eos % (Auto) 7.1 H, Baso % (Auto) 1.0, Absolute Neuts (auto) 4.5, Absolute Lymphs (auto) 0.83, Nucleated RBC % 0, Sodium 140, Potassium 4.2, Chloride 106, Carbon Dioxide 31.0, Anion Gap 4 L, BUN 18, Creatinine 0.78, Estim Creat Clear Calc 65.03, Est GFR (MDRD) Af Amer 91, Est GFR (MDRD) Non-Af 75, BUN/Creatinine Ratio 23.0 H, Glucose 94, Calcium 9.2 Micro: Microbiology 12/12/24 16:40 Urine, Catheterized Urine Culture - Preliminary Aerococcus sanguinicola GPC Poss Enterococcus sp 12/12/24 16:03 Blood Culture (Wb) - Anticubital Right Blood Culture - Preliminary No growth in 48 hours. 12/12/24 15:20 Blood Culture (Wb) - Anticubital Left Blood Culture - Preliminary No growth in 48 hours. 12/12/24 15:45 Mucosa - Nose SARS-CoV-2, Influenza & RSV (PCR) - Final 12/12/24 15:50 Urine, Clean Catch Legionella Antigen - Final 12/12/24 15:50 Urine, Clean Catch Streptococcus pneumoniae Antigen (M - Final Physical Exam Narrative GENERAL: cooperative but appears ill looking HEENT: Atraumatic; normocephalic EYES; Anicteric, Normal Conjunctiva NECK; supple, normal thyroid, RESPIRATORY: Diminished to auscultation CARDIOVASCULAR: Regular S1 S2, GI: soft, normoactive bowel sounds, : No Renal angle tenderness; EXTREMITIES: No edema, no clubbing, MUSCULOSKELETAL: no muscle wasting NEURO: Awake; no lateralizing signs. SKIN: No Rash PSYCH; Flat affect Assessment & Plan Assessment/Plan (1) Community acquired pneumonia: PLAN: Plan Patient is an 84-year-old lady presented with progressive shortness of breath with associated fever chills 1. Acute hypoxic respiratory failure secondary to pneumonia (present on admission) - Suspected to be secondary to streptococcal pneumonia, Blood and sputum cultures sent. Patient placed on Rocephin and Zithromax and placed on oxygen titrated to keep Pulse Ox greater than 90. As part of patient's management ordered viral respiratory panel as well as COVID assay ? 12/14/2024 patient remains on oxygen currently 8 L/min flow ? 12/15/2024; patient remains dyspneic at rest and respiratory rate in the 30s and requiring 6 L of oxygen on rest. With patient remains significantly hypoxic at rest elevated D-dimer and if positive will proceed to obtain CTA of the chest 2. Hypertension ? Blood pressure controlled, home medications continued with dose adjustment as needed 3. History of AAA Status post endovascular repair 4. Class III obesity with BMI of 46.3 ? Complicating care weight loss advised 5. Acute cystitis ? Present on admission patient currently on ceftriaxone ? 12/14/2024;Patient seen urine cultures so far positive for Gram Positive Cocci. Awaiting final identification and sensitivities 6. DVT prophylaxis ? On enoxaparin 7. Physical deconditioning ? Requested for PT OT eval and forensic social worker to assist with discharge planning ? 12/15/2024; patient agreeable [facility] Time spent in the patient's overall evaluation,decision-making process, review of diagnostic data, adjustment of management, discussion with other providers, nursing nursing and ancillary staff involved in patient's care documentation, 52 Minutes
[2024-12-15] MEDS: Ceftriaxone 2 GM in 0.9% Normal Saline (50mL MB+) 50 ML IV (09:50)
--- NOTE | 2024-12-15 10:13 | CASEMGMT ---
Per physician patient wants to go to [facility]. SW ordered therapy as this will be needed to determine if patient needs SNF. JAC met with patient. Introduced self and role at [facility]. JAC confirmed patient wanted to go to [facility] and patient said, No, [place]. JAC explained to patient that therapy will see her today. JAC asked patient if therapy sees her today and they feel she is okay to return home would she want to go home with home health. Patient stated, It is whatever Dr Walker wants me to do. JAC is assuming Dr Walker is Dr Juarez, patient's PCP. Await therapy recommendations. Siomara Monae MSW CELINA
[2024-12-15 10:58] LABS: D-Dimer Quantitative (DVT/PE) 2.55 FEU/ug/m (0.27-0.49)
--- NOTE | 2024-12-15 11:01 | CT_ITS ---
EXAM: CT Angiography Chest Without and With Intravenous Contrast CLINICAL INDICATION: TECHNIQUE: Axial computed tomographic angiography images of the chest without and with intravenous contrast. This CT exam was performed using one or more of the following dose reduction techniques: automated exposure control, adjustment of the mA and/or kV according to patient size, and/or use of iterative reconstruction technique. MIP reconstructed images were created and reviewed. COMPARISON: No relevant prior studies available. FINDINGS: ARTIFACTS: Motion artifact. LIMITATIONS: Suboptimal opacification of the pulmonary arteries. PULMONARY ARTERIES: No pulmonary embolism is identified. Some of the distal pulmonary arteries cannot be evaluated due to suboptimal opacification. AORTA: Scattered calcified atherosclerotic disease of aorta. No thoracic aortic aneurysm. LUNGS AND PLEURAL SPACES: Scattered partial consolidation and ground-glass attenuation of both lungs, likely multifocal pneumonia and/or atelectasis. Lung emphysema. No significant effusion. HEART: Mild cardiomegaly. No significant pericardial effusion. No evidence of RV dysfunction. BONES/JOINTS: No acute fracture. No dislocation. SOFT TISSUES: Unremarkable. LYMPH NODES: Unremarkable. No enlarged lymph nodes. CT/CTA Chest W/WO Contrast IMPRESSION: 1. No pulmonary embolism is identified. Some of the distal pulmonary arteries cannot be evaluated due to suboptimal opacification. 2. Scattered partial consolidation and ground-glass attenuation of both lungs, likely multifocal pneumonia and/or atelectasis. Reading [facility]
[2024-12-15] MEDS: DiphenhydrAMINE 50 MG/ML Syringe IV (11:21)
--- NOTE | 2024-12-15 11:55 | CASEMGMT ---
Addendum entered by Anastasiia Pham 12/15/24 14:53: TC to [facility] at [facility] to make aware that pt will dc to [facility] and requested to cancel referral. Original Note: Updated [facility] at [facility] that pt will not dc today and will update her later today.
--- NOTE | 2024-12-15 12:14 | CASEMGMT ---
Therapy saw patient and they felt patient would be okay for home. SW met with patient. She had a visitor present, but patient said SW could talk in front of her. SW told patient that therapy said she would be okay for home. Patient said her first choice would be home. However, she and her daughter were talking last night and they both decided SNF would be best. SW let patient know that SW will work on referral. SW asked Mariam to please send a referral to [facility]. Plan: [facility] pending their acceptance. Siomara Monae [employer] OPERATOR [place]
[2024-12-15] MEDS: Azithromycin 500 MG in 0.9% Normal Saline (250mL Bag) 250 ML 255 MG IV (12:47)
--- NOTE | 2024-12-15 13:00 | CASEMGMT ---
Addendum entered by Mariam Person 12/15/24 14:10: [facility] declined d/t no bed availability. Mariam Person DC Planning Asst. Original Note: SNF referral sent to [facility]. Mariam Person DC Planning Asst.
--- NOTE | 2024-12-15 14:28 | CASEMGMT ---
[facility] has declined patient as they are full. SW went to talk with patient, but she was sleeping. SW called patient's daughter Elsa. JAC explained [facility] is full and would they have any other choices. Elsa asked when patient will be discharged. JAC let her know that physician was thinking she may be ready tomorrow. Elsa asked if SW could check with TCU at [facility]. JAC told her SW will check. JAC made a referral to TCU. Siomara PATRICK
--- NOTE | 2024-12-15 15:12 | CASEMGMT ---
TCU accepted patient. JAC called Elsa and let her know. JAC also went to patient's room and explained [facility] is full, SW spoke with her daughter and next choice was [facility]. JAC explained [facility] can take patient. Patient said if she is still here Wednesday could we check with [facility] again. JAC told her we could, however it is anticipated she will go tomorrow. Patient was in agreement and thanked JAC for the update. Plan: d/c to [facility] under skilled level of care when medically ready. Siomara PATRICK
[2024-12-16 04:00] VITALS: BP 126/64; PULSE 62; RESP 22; TEMP 36.6; O2SAT 96
[2024-12-16] MEDS: Nystatin Powder 15gm Bottle 1 APPLIC TOPICAL (04:09)
[2024-12-16 06:56] LABS: Absolute Neutrophil Count 5.4 X10^3/uL (2.0-7.7); Basophil# 0.04 X10^3/uL; Basophil% 0.6 % (0-1); Hematocrit 36.5 % (37-47); Hemoglobin 11.6 g/dL (12.0-15.0); Mean Corp Hgb Conc 31.8 g/dL (32-36); Mean Corpuscular Hgb 30.4 pg (27.0-32.0); Mean Corpuscular Volume 95.8 fL (81-99); Mean Platelet Vol. 9.2 fl (6.2-12.0); Monocyte# 0.52 X10^3/uL; Monocyte% 7.8 % (0-10); NRBC Flagged by Analyzer 0 % (0-5); Neutrophil # 5.36 X10^3/uL (2.7-7.7); Neutrophil % 80.5 % (47-70); POSITIVE DIFFERENTIAL YES; Platelet Count 272 K/mm3 (150-450); RBC Distribution Width CV 15.9 % (11.6-14.6); RBC Distribution Width SD 55.3 fl (35.1-43.9); Red Blood Count 3.81 M/mm3 (4.2-5.4); White Blood Count 6.7 K/mm3 (4.4-11.0)
[2024-12-16 07:18] VITALS: O2SAT 96
[2024-12-16 07:18] LABS: Anion Gap 5 (5-15); BUN 29 mg/dL (7-18); BUN/Creat Ratio 32.4 RATIO (10-20); Calcium,Total 9.4 mg/dL (8.5-10.1); Chloride 106 mmol/L (98-107); Creatinine, Serum 0.89 mg/dL (0.55-1.02); EST Glomerular Filtration Rate 64 mL/min (>60); Est Glom Filt Rate - Afr Amer 78 mL/min (>60); Estimated Creatinine Clearance 58.46 ml/min; Glucose 160 mg/dL (74-106); Potassium 4.8 mmol/L (3.5-5.1); Sodium Level 140 mmol/L (136-145)
--- NOTE | 2024-12-16 07:22 | PN.HOSP_ITS ---
Reason for Visit Reason for Visit: Diagnoses Pneumonia, unspecified organism (12/12/24) Subjective Subjective Patient seen remains on supplemental oxygen. Awaiting insurance precertification prior to transfer to alf facility Objective Data Objective Data Vital Signs: Vital Signs Temp Pulse Resp BP Pulse Ox O2 Del Method O2 Flow Rate 98 F 62 22 H 126/64 H 96 Nasal Cannula 6 12/16/24 04:00 12/16/24 04:00 12/16/24 04:00 12/16/24 04:00 12/16/24 07:18 12/16/24 07:18 12/16/24 07:18 FiO2 95 12/12/24 23:15 Oxygen Flow Rate (L/min) 6 Oxygen Delivery Method Nasal Cannula Weight: 114.8 kg Body Mass Index (BMI) 46.3 Intake & Output: Intake and Output for Last 24 Hours 12/14/24 12/15/24 12/16/24 23:59 23:59 23:59 Intake Total 1305 / 1305 625 / 625 Balance 1305 / 1305 625 / 625 Lab / Micro Data 12/16/24 05:08 12/16/24 05:08 Labs: Laboratory Results - last 24 hr 12/12/24 16:40: Urine Color Caren, Urine Clarity Sl. Cloudy, Urine pH 6.0, Ur Specific [place] 1.015, Urine Protein 30 H, Urine Glucose (UA) Normal, Urine Ketones 5 H, Urine Occult Blood 25 H, Urine Nitrite Negative, Urine Bilirubin 1 H, Urine Urobilinogen 4 H, Ur Leukocyte Esterase 100 H, Urine RBC 0 SEEN, Urine WBC 5-10 SEEN, Ur Squamous Epith Cells 0-5 SEEN, Urine Bacteria 3+, Urine Mucus 0 SEEN 12/15/24 10:24: D-Dimer Quant (PE/DVT) 2.55 H* 12/16/24 05:08: WBC 6.7, RBC 3.81 L, Hgb 11.6 L, Hct 36.5 L, MCV 95.8, MCH 30.4, MCHC 31.8 L, RDW Std Deviation 55.3 H, RDW Coeff of Toribio 15.9 H, Plt Count 272, MPV 9.2, Immature Gran % (Auto) 2.100 H, Neut % (Auto) 80.5 H, Lymph % (Auto) 9.0 L, [place] % (Auto) 7.8, Eos % (Auto) 0.0, Baso % (Auto) 0.6, Absolute Neuts (auto) 5.4, Absolute Lymphs (auto) 0.60 L, Nucleated RBC % 0, Sodium 140, Potassium 4.8, Chloride 106, Carbon Dioxide 29.0, Anion Gap 5, BUN 29 H, Creatinine 0.89, Estim Creat Clear Calc 58.46, Est GFR (MDRD) Af Amer 78, Est GFR (MDRD) Non-Af 64, BUN/Creatinine Ratio 32.4 H, Glucose 160 H, Calcium 9.4 Micro: Microbiology 12/12/24 16:40 Urine, Catheterized Urine Culture - Final Aerococcus sanguinicola Enterococcus faecalis 12/12/24 16:03 Blood Culture (Wb) - Anticubital Right Blood Culture - Preliminary No growth in 48 hours. 12/12/24 15:20 Blood Culture (Wb) - Anticubital Left Blood Culture - Preliminary No growth in 48 hours. 12/12/24 15:45 Mucosa - Nose SARS-CoV-2, Influenza & RSV (PCR) - Final 12/12/24 15:50 Urine, Clean Catch Legionella Antigen - Final 12/12/24 15:50 Urine, Clean Catch Streptococcus pneumoniae Antigen (M - Final Radiography Diagnostic Testing: Radiology Impression Chest CTA 12/15/24 11:01 IMPRESSION: 1. No pulmonary embolism is identified. Some of the distal pulmonary arteries cannot be evaluated due to suboptimal opacification. 2. Scattered partial consolidation and ground-glass attenuation of both lungs, likely multifocal pneumonia and/or atelectasis. Reading Location: [facility] Physical Exam Narrative GENERAL: cooperative but appears ill looking HEENT: Atraumatic; normocephalic EYES; Anicteric, Normal Conjunctiva NECK; supple, normal thyroid, RESPIRATORY: Diminished to auscultation CARDIOVASCULAR: Regular S1 S2, GI: soft, normoactive bowel sounds, : No Renal angle tenderness; EXTREMITIES: No edema, no clubbing, MUSCULOSKELETAL: no muscle wasting NEURO: Awake; no lateralizing signs. SKIN: No Rash PSYCH; Flat affect Assessment & Plan Assessment/Plan (1) Community acquired pneumonia: PLAN: Plan Patient is an 84-year-old lady presented with progressive shortness of breath with associated fever chills 1. Acute hypoxic respiratory failure secondary to pneumonia (present on admission) - Suspected to be secondary to streptococcal pneumonia, Blood and sputum cultures sent. Patient placed on Rocephin and Zithromax and placed on oxygen titrated to keep Pulse Ox greater than 90. As part of patient's management ordered viral respiratory panel as well as COVID assay ? 12/14/2024 patient remains on oxygen currently 8 L/min flow ? 12/15/2024; patient remains dyspneic at rest and respiratory rate in the 30s and requiring 6 L of oxygen on rest. With patient remains significantly hypoxic at rest elevated D-dimer and if positive will proceed to obtain CTA of the chest -12/26/2024; CTA obtained the day prior demonstrated no pulmonary embolism is identified. Some of the distal pulmonary arteries cannot be evaluated due to suboptimal opacification.Scattered partial consolidation and ground-glass attenuation of both lungs, likely multifocal pneumonia and/or atelectasis.. Patient still remains on high flow oxygen currently at 6 L/min flow 2. Hypertension ? Blood pressure controlled, home medications continued with dose adjustment as needed 3. History of AAA Status post endovascular repair 4. Class III obesity with BMI of 46.3 ? Complicating care weight loss advised 5. Acute cystitis ? Present on admission patient currently on ceftriaxone ? 12/14/2024;Patient seen urine cultures so far positive for Gram Positive Cocci. Awaiting final identification and sensitivities 6. DVT prophylaxis ? On enoxaparin 7. Physical deconditioning ? Requested for PT OT eval and director of social media marketing to assist with discharge planning ? 12/15/2024; patient agreeable to be discharged to alf facility for rehab Time spent in the patient's overall evaluation,decision-making process, review of diagnostic data, adjustment of management, discussion with other providers, nursing nursing and ancillary staff involved in patient's care documentation, 40 Minutes Charges/Coding Visit Charges Inpatient E&M: 19453 Subs Hosp L2
--- NOTE | 2024-12-16 09:48 | DS.PCM_ITS ---
Providers Date of Admission: 12/12/24 Date of Discharge: 12/16/24 Primary Care Physician: Dr. Mio Juarez MD Reason For Visit: PNEUMONIA Diagnosis Discharge Diagnosis (1) Community acquired pneumonia: Status: Acute Code(s): J18.9 - Pneumonia, unspecified organism Plan Patient is an 84-year-old lady presented with progressive shortness of breath with associated fever chills 1. Acute hypoxic respiratory failure secondary to pneumonia (present on admission) - Suspected to be secondary to streptococcal pneumonia, Blood and sputum cultures sent. Patient placed on Rocephin and Zithromax and placed on oxygen titrated to keep Pulse Ox greater than 90. As part of patient's management ordered viral respiratory panel as well as COVID assay ? 12/14/2024 patient remains on oxygen currently 8 L/min flow ? 12/15/2024; patient remains dyspneic at rest and respiratory rate in the 30s and requiring 6 L of oxygen on rest. With patient remains significantly hypoxic at rest elevated D-dimer and if positive will proceed to obtain CTA of the chest -12/26/2024; CTA obtained the day prior demonstrated no pulmonary embolism is identified. Some of the distal pulmonary arteries cannot be evaluated due to suboptimal opacification.Scattered partial consolidation and ground-glass attenuation of both lungs, likely multifocal pneumonia and/or atelectasis.. Patient still remains on high flow oxygen currently at 6 L/min flow 2. Hypertension ? Blood pressure controlled, home medications continued with dose adjustment as needed 3. History of AAA Status post endovascular repair 4. Class III obesity with BMI of 46.3 ? Complicating care weight loss advised 5. Acute cystitis ? Present on admission patient currently on ceftriaxone ? 12/14/2024;Patient seen urine cultures so far positive for Gram Positive Cocci. Awaiting final identification and sensitivities 6. DVT prophylaxis ? On enoxaparin 7. Physical deconditioning ? Requested for PT OT eval and family welfare social work professor to assist with discharge planning ? 12/15/2024; patient agreeable to be discharged to care home facility for rehab Time spent in the patient's overall evaluation,decision-making process, review of diagnostic data, adjustment of management, discussion with other providers, nursing nursing and ancillary staff involved in patient's care documentation, 40 Minutes Medications at Discharge Home Medications amlodipine 5 mg tablet 5 mg PO DAILY #90 TABLETS 04/11/24 acetaminophen 325 mg tablet 650 mg (2 x 325 mg) PO Q6H PRN PRN Pain 1-10 Or Fever>100.7 #0 tabs 12/16/24 albuterol sulfate 2.5 mg/3 mL (0.083 %) solution for nebulization 2.5 mg (3 mL) inhalation Q2H PRN PRN SOB &/OR WHEEZING #0 mL 12/16/24 aluminum-mag hydroxide-simethicone 400 mg-400 mg-40 mg/5 mL oral susp (Mag-Al Plus Extra Strength) 30 ml PO Q6H PRN PRN Gastric Burning #0 mL 12/16/24 benzocaine 15 mg-menthol 3.6 mg lozenges (Sore Throat (benzocaine with menthol)) 1 jesusita mucous membrane Q2H PRN PRN SORE THROAT #0 ea 12/16/24 cefdinir 300 mg capsule 300 mg PO BID #10 caps 12/16/24 food supplemt, lactose-reduced 0.08 gram-1.5 kcal/mL oral liquid (Ensure Plus High Protein) 120 ml PO TIDCM #0 mL 12/16/24 melatonin 3 mg tablet 3 mg PO QHS PRN PRN Insomnia #0 tabs 12/16/24 menthol 0.44 %-zinc oxide 20.6 % topical ointment (Calmoseptine) 1 applic topical BID #0 grams 12/16/24 sennosides 8.6 mg-docusate sodium 50 mg tablet (Stimulant Laxative Plus) 2 tab PO BID PRN PRN Constipation #0 tabs 12/16/24 Physical Exam Narrative GENERAL: cooperative but appears ill looking HEENT: Atraumatic; normocephalic EYES; Anicteric, Normal Conjunctiva NECK; supple, normal thyroid, RESPIRATORY: Diminished to auscultation CARDIOVASCULAR: Regular S1 S2, GI: soft, normoactive bowel sounds, : No Renal angle tenderness; EXTREMITIES: No edema, no clubbing, MUSCULOSKELETAL: no muscle wasting NEURO: Awake; no lateralizing signs. SKIN: No Rash PSYCH; Flat affect Weight / BMI Weight Weight: 114.8 kg Body Mass Index (BMI) 46.3 ABG / Lab / Microbiology Data 12/16/24 05:08 12/16/24 05:08 Laboratory: Laboratory Results - last 24 hr 12/15/24 10:24: D-Dimer Quant (PE/DVT) 2.55 H* 12/16/24 05:08: WBC 6.7, RBC 3.81 L, Hgb 11.6 L, Hct 36.5 L, MCV 95.8, MCH 30.4, MCHC 31.8 L, RDW Std Deviation 55.3 H, RDW Coeff of Toribio 15.9 H, Plt Count 272, MPV 9.2, Immature Gran % (Auto) 2.100 H, Neut % (Auto) 80.5 H, Lymph % (Auto) 9.0 L, [place] % (Auto) 7.8, Eos % (Auto) 0.0, Baso % (Auto) 0.6, Absolute Neuts (auto) 5.4, Absolute Lymphs (auto) 0.60 L, Nucleated RBC % 0, Sodium 140, Potassium 4.8, Chloride 106, Carbon Dioxide 29.0, Anion Gap 5, BUN 29 H, Creatinine 0.89, Estim Creat Clear Calc 58.46, Est GFR (MDRD) Af Amer 78, Est GFR (MDRD) Non-Af 64, BUN/Creatinine Ratio 32.4 H, Glucose 160 H, Calcium 9.4 Microbiology: Microbiology 12/12/24 16:40 Urine, Catheterized Urine Culture - Final Aerococcus sanguinicola Enterococcus faecalis 12/12/24 16:03 Blood Culture (Wb) - Anticubital Right Blood Culture - Preliminary No growth in 48 hours. 12/12/24 15:20 Blood Culture (Wb) - Anticubital Left Blood Culture - Preliminary No growth in 48 hours. 12/12/24 15:45 Mucosa - Nose SARS-CoV-2, Influenza & RSV (PCR) - Final 12/12/24 15:50 Urine, Clean Catch Legionella Antigen - Final 12/12/24 15:50 Urine, Clean Catch Streptococcus pneumoniae Antigen (M - Final Radiography Diagnostic Testing: Radiology Impression Chest CTA 12/15/24 11:01 IMPRESSION: 1. No pulmonary embolism is identified. Some of the distal pulmonary arteries cannot be evaluated due to suboptimal opacification. 2. Scattered partial consolidation and ground-glass attenuation of both lungs, likely multifocal pneumonia and/or atelectasis. Reading [facility] Instructions Discharge Diet: No restrictions Discharge Activity: Return to Normal Activity Call your doctor if you observe: Fever of 101 or Higher, Shortness of breath, Fainting spells and Chest pain DC O2, CPAP, BIPAP Needs PSN CPAP & BiPAP: BiPAP & CPAP Settings per PSN Fraction of Inspired Oxygen ( 95 12/12/24 23:15 FIO2) Home O2 Discharge instructions: Yes Type of respiratory needs?: Oxygen Oxygen frequency: Continuous Continuous oxygen liters per minute: 5 DC home with Oxygen: Yes Home O2 MD Review: I have reviewed the oxygen testing, and the patient qualifies for home oxygen equipment and portability. The patient is mobile in the home and the community. Meaningful Use Info Meaningful Use Meaningful Use Diagnoses (Choose all that apply): None applicable Ischemic Stroke Statin Dosing Therapy Reference: STATIN DOSE THERAPY REFERENCE: * Patients > 75 years receive moderate or high dose statin therapy. * Patients 75 years or YOUNGER should receive HIGH intensity statin dose unless contraindicated. You will be required to document reason for non-treatment if statin daily dose does not meet guidelines. HIGH DOSE STATIN THERAPY DAILY Atorvastatin > than or = to 40 mg Rosuvastatin > than or = to 20 mg Amlodipine + Atorvastatin > than or = to 2.5/40 mg Ezetimibe + Simvastatin 10/80 mg Simvastatin 80mg Discharge Plan Admission Admit Date/Time: 12/12/24 16:59 Attending Provider: Faustino Brewer Primary Care Provider: Mio Juarez Discharge Orders/Prescriptions Prescriptions: New acetaminophen 325 mg Tablet 650 mg PO Q6H PRN PRN (Reason: Pain 1-10 Or Fever>100.7) Qty: 0 0RF albuterol sulfate 2.5 mg /3 mL (0.083 %) Solution For Nebulization 2.5 mg inhalation Q2H PRN PRN (Reason: SOB &/OR WHEEZING) Qty: 0 0RF sennosides-docusate sodium [Stimulant Laxative Plus] 8.6-50 mg Tablet 2 tab PO BID PRN PRN (Reason: Constipation) Qty: 0 0RF melatonin 3 mg Tablet 3 mg PO QHS PRN PRN (Reason: Insomnia) Qty: 0 0RF alum-mag hydroxide-simeth [Mag-Al Plus Extra Strength] 400-400-40 mg/5 mL Suspension 30 ml PO Q6H PRN PRN (Reason: Gastric Burning) Qty: 0 0RF menthol-zinc oxide [Calmoseptine] 0.44-20.6 % Ointment 1 applic topical BID Qty: 0 0RF Protocol: *Topical Application Instructions APPLICATION INSTRUCTIONS: buttocks Sore Throat (benzocaine-menth) 15-3.6 mg Lozenge 1 jesusita mucous membrane Q2H PRN PRN (Reason: SORE THROAT) Qty: 0 0RF Ensure Plus High Protein 0.08 gram-1.5 kcal/mL Liquid 120 ml PO TIDCM Qty: 0 0RF cefdinir 300 mg capsule 300 mg PO BID Qty: 10 0RF Continued amlodipine 5 mg tablet 5 mg PO DAILY Qty: 90 3RF Referrals / Follow Up: Mio Juarez MD [Primary Care Provider] - Within 2 Weeks Disposition Disposition (needs filled in before D/C Order can be placed): [facility] Facility Charges/Coding Visit Charges Inpatient E&M: 73037 Disch Hosp >30min
--- NOTE | 2024-12-16 09:53 | TREXTCAR_ITS ---
Diet Diet Order/Speech Therapy: 12/12/24 16:57 Diet: Regular - General Food consistency:: Regular Liquid Consistency:: Regular/Thin Type of Dietary Supplement:: Ensure Plus High Protein Routine Orders/Code Status Code Status: DNRCC-A DC O2, CPAP, BIPAP needs Home O2 Discharge instructions: Yes Type of respiratory needs?: Oxygen Oxygen frequency: Continuous Continuous oxygen liters per minute: 5 Therapies Physical Therapy: Eval and Treat Occupational Therapy: Eval and Treat Problem/Diagnosis (1) Community acquired pneumonia: Status: Acute Code(s): J18.9 - Pneumonia, unspecified organism Plan Patient is an 84-year-old lady presented with progressive shortness of breath with associated fever chills 1. Acute hypoxic respiratory failure secondary to pneumonia (present on adm ission) - Suspected to be secondary to streptococcal pneumonia, Blood and sputum cultures sent. Patient placed on Rocephin and Zithromax and placed on oxygen titrated to keep Pulse Ox greater than 90. As part of patient's management ordered viral respiratory panel as well as COVID assay ? 12/14/2024 patient remains on oxygen currently 8 L/min flow ? 12/15/2024; patient remains dyspneic at rest and respiratory rate in the 30s and requiring 6 L of oxygen on rest. With patient remains significantly hypoxic at rest elevated D-dimer and if positive will proceed to obtain CTA of the chest -12/26/2024; CTA obtained the day prior demonstrated no pulmonary embolism is identified. Some of the distal pulmonary arteries cannot be evaluated due to suboptimal opacification.Scattered partial consolidation and ground-glass attenuation of both lungs, likely multifocal pneumonia and/or atelectasis.. Patient still remains on high flow oxygen currently at 6 L/min flow 2. Hypertension ? Blood pressure controlled, home medications continued with dose adjustment as needed 3. History of AAA Status post endovascular repair 4. Class III obesity with BMI of 46.3 ? Complicating care weight loss advised 5. Acute cystitis ? Present on admission patient currently on ceftriaxone ? 12/14/2024;Patient seen urine cultures so far positive for Gram Positive Cocci. Awaiting final identification and sensitivities 6. DVT prophylaxis ? On enoxaparin 7. Physical deconditioning ? Requested for PT OT eval and social group worker to assist with discharge planning ? 12/15/2024; patient agreeable to be discharged to nursing home facility for rehab Time spent in the patient's overall evaluation,decision-making process, review of diagnostic data, adjustment of management, discussion with other providers, n enzoing nursing and ancillary staff involved in patient's care documentation, 40 Minutes Allergies/Procedures Done in Hospital Allergies rosuvastatin (From Crestor) Allergy (Severe, Verified 12/12/24 14:25) stomach pains shellfish derived Allergy (Severe, Verified 12/12/24 14:25) MOUTH SORES sulfamethoxazole (From Bactrim) Allergy (Unknown, Verified 12/12/24 14:25) unknown trimethoprim (From Bactrim) Allergy (Unknown, Verified 12/12/24 14:25) unknown Type of Care/Length of Stay Estimated LOS: Convalescent Care Less Than 30 days Type of Care Needed: Skilled Rehab Potential: Good Prognosis: Good Additional Orders/Day of Discharge Day of Discharge: 12/16/24 Dietary and Speech Recommendations Dietitian Recommendations/Changes: Continue Regular diet to optimize oral intakes. Will discontinue Ensure supplements d/t pt refusing. Discharge Plan Admission Admit Date/Time: 12/12/24 16:59 Attending Provider: Faustino Brewer Primary Care Provider: Mio Juarez Discharge Orders/Prescriptions Prescriptions: New acetaminophen 325 mg Tablet 650 mg PO Q6H PRN PRN (Reason: Pain 1-10 Or Fever>100.7) Qty: 0 0RF albuterol sulfate 2.5 mg /3 mL (0.083 %) Solution For Nebulization 2.5 mg inhalation Q2H PRN PRN (Reason: SOB &/OR WHEEZING) Qty: 0 0RF sennosides-docusate sodium [Stimulant Laxative Plus] 8.6-50 mg Tablet 2 tab PO BID PRN PRN (Reason: Constipation) Qty: 0 0RF melatonin 3 mg Tablet 3 mg PO QHS PRN PRN (Reason: Insomnia) Qty: 0 0RF alum-mag hydroxide-simeth [Mag-Al Plus Extra Strength] 400-400-40 mg/5 mL Suspension 30 ml PO Q6H PRN PRN (Reason: Gastric Burning) Qty: 0 0RF menthol-zinc oxide [Calmoseptine] 0.44-20.6 % Ointment 1 applic topical BID Qty: 0 0RF Protocol: *Topical Application Instructions APPLICATION INSTRUCTIONS: buttocks Sore Throat (benzocaine-menth) 15-3.6 mg Lozenge 1 jesusita mucous membrane Q2H PRN PRN (Reason: SORE THROAT) Qty: 0 0RF Ensure Plus High Protein 0.08 gram-1.5 kcal/mL Liquid 120 ml PO TIDCM Qty: 0 0RF cefdinir 300 mg capsule 300 mg PO BID Qty: 10 0RF Continued amlodipine 5 mg tablet 5 mg PO DAILY Qty: 90 3RF Referrals / Follow Up: Mio Juarez MD [Primary Care Provider] - Within 2 Weeks Disposition Disposition (needs filled in before D/C Order can be placed): Retirement Facility
[2024-12-16] MEDS: Ceftriaxone 2 GM in 0.9% Normal Saline (50mL MB+) 50 ML IV (10:21)
--- NOTE | 2024-12-16 10:23 | CASEMGMT ---
Social Work- JAC received notice that pt is medically ready and physician plans to discharge. JAC updated pt. Pt would like daughter notified. JAC notified Elsa, pt daughter, via telephone of planned discharge and asked Elsa to bring clothes at her visit. JAC faxed discharge paperwork to TCU. JAC updated bedside nurse. JAC faxed discharge paperwork to Tania [facility] at [phone]. Tania phone contact is [phone]. Pt would like a shower chair at discharge to home. JAC on TCU updated. Pt reports no other needs at this time. Plan: TCU; skilled level of care NAJMA Mancera
[2024-12-16 10:27] VITALS: BP 106/62; PULSE 69; RESP 16; TEMP 36.6; O2SAT 96
[2024-12-16] MEDS: Menthol/Lanolin/Calamine/Znox 113 GM Tube 1 APPLIC TOPICAL (10:44)
[2024-12-16 10:47] VITALS: BP 106/62; PULSE 69; RESP 18; RESP 20; TEMP 36.6; O2SAT 96
[2024-12-16] MEDS: Azithromycin 500 MG in 0.9% Normal Saline (250mL Bag) 250 ML 255 MG IV (11:21)
== END 2024-12-16 14:03 | DRG 871 ==
LOC: ED 16:54 → MS3 17:09
PROVIDERS: Admitting Provider Internal Medicine; Emergency Provider Emergency Medicine; PCP Internal Medicine; Visit Provider Internal Medicine
DX: A41.9 Sepsis, unspecified organism (principal); J15.4 Pneumonia due to other streptococci; J96.01 Acute respiratory failure with hypoxia; Z68.42 Body mass index [BMI] 45.0-49.9, adult; N30.00 Acute cystitis without hematuria; Z66 Do not resuscitate; I10 Essential (primary) hypertension; Z95.828 Presence of other vascular implants and grafts; E78.5 Hyperlipidemia, unspecified; B95.2 Enterococcus as the cause of diseases classified elsewhere; B96.89 Other specified bacterial agents as the cause of diseases classified elsewhere; E66.813 Obesity, class 3; R53.81 Other malaise; Z79.899 Other long term (current) drug therapy; Z86.16 Personal history of COVID-19
CPT/HCPCS: 36415; 71046; 71275; 80048; 80053; 81001; 83605; 83735; 85025; 85379; 85610; 85730; 87040; 87077; 87086; 87088; 87186; 87449; 87631; 93005; 94640; 94668; 97162; 97166; 99252; 99285; P9612; Q9967; A4216; G0463; J0696

== ENCOUNTER 2024-12-16 14:08 | Inpatient (IN) | payer MEDICARE, BC, MEDICAID, SELFPAY ==
[2024-12-16 14:23] VITALS: BP 121/57; PULSE 67; RESP 16; TEMP 36.7; O2SAT 92; BMI 35.6
--- NOTE | 2024-12-16 15:54 | HP.PCM_ITS ---
HPI - General General Date of Admission: 12/16/24 Date of Service: 12/18/24 Chief Complaint: Here for rehabilitation. HPI Narrative ELA JOHNSON, is a 84 Female who presents with followin12/12/2024 [facility] ED with shortness of breath. Shortness of breath, productive cough, hypoxia per EMS. Respiratory symptoms for 1 week, PCP notified patient had UTI. Cough productive of thick green sputum, also chills, sweats, soaking sheets. Chest X-ray showed right middle lobe pneumonia. 12/12/2024 Admit to [facility]. Blood cultures, sputum cultures. Ceftriaxone IV, Azithromycin IV for RML pneumonia. Oxygen to keep pulsox 90% or above. covid, respiratory panel ordered. 12/13/2024 Urinalysis c/w urinary tract infection. Ceftriaxone IV for UTI. Ceftriaxone IV, Azithromycin IV for RML pneumonia, wean oxygen as tolerated. 12/14/2024 Urine culture gram positive cocci. Oxygen 8 liters per nasal cannula. covid negative, rsv, negative, flu negative urinary antigen for strep negative, urinary antigen for legionella negative. Blood cultures negative. Urine culture Aerococcus urinae, sanguinicola. 12/15/2024 Oxygen 6 liters per nasal cannula, agreeable to SNF. Check d-dimer to evaluate for pulmonary embolism. PT/OT for SNF. CTA chest negative for pulmonary embolism, but shows multifocal pneumonia/atelectasis. 12/16/2024 Admit to TCU with debility, here for rehabilitation, strengthening, prior to discharge home alone. [facility] Medical History Cancer AAA (abdominal aortic aneurysm) Community acquired pneumonia Malaise and fatigue Pulmonary infiltrate Cough Eye abnormalities History of hypertension Obesity History of abdominal aortic aneurysm (AAA) Hyperlipidemia Venous insufficiency of both lower extremities Intertriginous dermatitis associated with moisture Urinary incontinence, mixed Bilateral lower extremity edema History of skin cancer History of COVID-19 History of uterine cancer Hypertension Home Medications ?Medication ?Instructions ?Recorded ?Last Taken ?Type amlodipine 5 mg tablet 5 mg PO DAILY BP #90 TABLETS 04/11/24 12/14/24 Rx acetaminophen 325 mg tablet 650 mg (2 x 325 mg) PO Q6H PRN PRN 12/16/24 12/12/24 Rx Pain 1-10 Or Fever>100.7 #0 tabs albuterol sulfate 2.5 mg/3 mL 2.5 mg (3 mL) inhalation Q2H PRN 12/16/24 12/15/24 Rx (0.083 %) solution for nebulization PRN SOB &/OR WHEEZ ING #0 mL aluminum-mag hydroxide-simethicone 30 ml PO Q6H PRN AZ N Gastric 12/16/24 Unknown Rx 400 mg-400 mg-40 mg/5 mL oral susp Burning #0 mL (Mag-Al Plus Extra Strength) benzocaine 15 mg-menthol 3.6 mg 1 jesusita mucous membrane Q2H PRN PRN 12/16/24 Unknown Rx lozenges (Sore Throat (benzocaine SORE THROAT #0 ea with menthol)) cefdinir 300 mg capsule 300 mg PO BID Antibiotic #1 0 caps 12/16/24 Unknown Rx food supplemt, lactose-reduced 120 ml PO TIDCM Supplem ent #0 mL 12/16/24 Unknown Rx 0.08 gram-1.5 kcal/mL oral liquid (Ensure Plus High Protein) melatonin 3 mg tablet 3 mg PO QHS PRN PRN Insomnia #0 12/16/24 Unknown Rx tabs menthol 0.44 %-zinc oxide 20.6 % 1 applic topical BID Skin #0 grams 12/16/24 Unknown Rx topical ointment (Calmoseptine) sennosides 8.6 mg-docusate sodium 2 tab PO BID PRN PRN Constipation 12/16/24 Unknown Rx 50 mg tablet (Stimulant Laxative #0 tabs Plus) Allergy/AdvReac Type Severity Reaction Status Date / Time rosuvastatin (From Crestor) Allergy Severe stomach Verified 12/12/24 14:25 pains shellfish derived Allergy Severe MOUTH SORES Verified 12/12/24 14:25 sulfamethoxazole (From Allergy Unknown unknown Verified 12/12/24 14:25 Bactrim) trimethoprim (From Bactrim) Allergy Unknown unknown Verified 12/12/24 14:25 Family History Son Alcoholism Grandmother No problems noted. Mother Heart disease Hypertension CVA (cerebral vascular accident) Father Cancer throat Surgical History History of recent surgery History of hernia repair Hx of endovascular stent graft for abdominal aortic aneurysm History of hysterectomy Social History (Updated 12/16/24 @ 16:[address] Vishal Javier MD) household members: none Smoking Status: Never smoker alcohol intake: never substance use type: does not use what type of physical activity do you participate in: walking and aerobics ROS Constitutional Constitutional: Reports weakness; Denies chills, fever(s) or weight gain ENT HEENT: Denies headache(s), nasal congestion or nasal discharge Cardiovascular Cardiovascular: Denies chest pain or palpitations Respiratory/Chest Respiratory/Chest: Denies cough, excessive phlegm production or shortness of breath with exertion Gastrointestinal Gastrointestinal: Denies abdominal pain, nausea or vomiting Genitourinary Genitourinary: Denies dysuria Musculoskeletal Musculoskeletal: Denies joint pain or joint swelling Integumentary Integumentary: Denies rash or wounds Neurologic Neurologic: Denies focal weakness, numbness or tingling Psychiatric Psychiatric: Denies anxiety, auditory hallucinations, depression, homicidal ideation or suicidal ideation Vital Signs Vital Signs Vital Signs: 12/16/24 14:23 12/16/24 14:44 Temperature 98.0 F Temperature Source Temporal Pulse Rate 67 Pulse Rhythm Regular Pulse Strength Normal (2+) Respiratory Rate 16 Respiratory Effort Normal Non-Labored Respiratory Depth Normal Respiratory Pattern Normal Blood Pressure 121/57 H Blood Pressure Mean 78 Blood Pressure Source Monitor Blood Pressure Position Semi-Fowlers Blood Pressure Location Right Forearm Pulse Ox 92 Oxygen Delivery Method Nasal Cannula Nasal Cannula Oxygen Flow Rate (L/min) 3 3 Weight Weight: 88.541 kg Body Mass Index (BMI) 35.6 Physical Exam Const alert General Appearance: cooperative HEENT normocephalic Eyes PERRL and EOMs intact bilaterally Neck supple, no JVD and no carotid bruits Resp normal respiratory effort, normal air movement and clear to auscultation bilaterally Cardio regular rate and regular rhythm GI normal to inspection, nondistended, normoactive bowel sounds, non-tender and non-distended Extremity normal capillary refill General Extremity: Negative for edema Skin Skin Narrative: Erythematous, scaly rash under breasts, yellowish plaque present. General Skin Exam: no breakdown Psych affect normal Appearance: appropriate Results Lab / Micro Data 12/17/24 05:42 12/17/24 05:42 Assessment & Plan Assessment/Plan (1) Debility: (2) Acute respiratory failure with hypoxia: (3) Pneumonia: (4) Urinary tract infection: (5) Essential (primary) hypertension: PLAN: Plan 84 year old female with below past medical history hospitalized for acute respiratory failure with hypoxia 2/2 right middle lobe pneumonia, pulmonary embolism ruled out, complicated by urinary tract infection, admitted to TCU with debility, here for rehabilitation, strengthening, prior to discharge home alone. * Debility - PT/OT. * Pain - Tylenol 1000mg q6 prn pain (1-10). * Bowel - senna/colace 2 tablets bid prn. * Adult immunization - Administer pneumonia vaccine, covid vaccine, flu vaccine as appropriate. * DVT prophylaxis - Lovenox 40mg sc daily. * Shortness of breath - Albuterol 2.5mg neb q2h prn. * Hypertension - Amlodipine 5mg daily. * Sore throat - Cepacol 1 lozenge q2h prn. * Pneumonia/UTI - Cefdinir 300mg bid thru 12/21/2024. * Nutrition - Ensure Plus 120mL po tidcm. * Indigestion - Mylanta 2 30mL q6 prn. * Insomnia - Melatonin 3mg qhs prn. * Skin irritation - Calmoseptine topical bid. * Tinea Corporis - Nystatin power topical bid. * Hypoxia - Wean oxygen as tolerated. * Plaque psoriasis - add Triamcinolone cream bid.
[2024-12-16] MEDS: Ensure Plus High Protein 120 ML LIQUID PO (16:55)
[2024-12-16] MEDS: Cefdinir 300 MG Capsule PO (21:02)
[2024-12-16] MEDS: Menthol/Lanolin/Calamine/Znox 113 GM Tube 1 APPLIC TOPICAL (21:06)
[2024-12-16] MEDS: Nystatin Powder 15gm Bottle 1 APPLIC TOPICAL (21:06)
[2024-12-16] MEDS: 0.9% Saline Lock 10 ML Syringe IV (21:13)
--- NOTE | 2024-12-17 05:16 | NURSING ---
Patient refused lovenox injection, stated I don't want that, gentle encouragement ineffective.
[2024-12-17 06:04] LABS: Absolute Lymphocyte Count 0.88 X10^3/uL (0.83-4.51); Absolute Neutrophil Count 3.8 X10^3/uL (2.0-7.7); Basophil# 0.05 X10^3/uL; Basophil% 0.9 % (0-1); Eosinophil# 0.35 X10^3/uL; Eosinophils% 6.1 % (0-5); Hematocrit 37.4 % (37-47); Hemoglobin 11.7 g/dL (12.0-15.0); Lymphocyte # 0.88 X10^3/ul (0.83-4.51); Lymphocyte % 15.3 % (19-41); Mean Corp Hgb Conc 31.3 g/dL (32-36); Mean Corpuscular Hgb 29.8 pg (27.0-32.0); Mean Corpuscular Volume 95.4 fL (81-99); Mean Platelet Vol. 8.6 fl (6.2-12.0); Monocyte# 0.62 X10^3/uL; Monocyte% 10.8 % (0-10); NRBC Flagged by Analyzer 0 % (0-5); Neutrophil # 3.77 X10^3/uL (2.7-7.7); Neutrophil % 65.3 % (47-70); Platelet Count 273 K/mm3 (150-450); RBC Distribution Width CV 15.9 % (11.6-14.6); RBC Distribution Width SD 54.9 fl (35.1-43.9); Red Blood Count 3.92 M/mm3 (4.2-5.4); White Blood Count 5.8 K/mm3 (4.4-11.0)
[2024-12-17 06:26] LABS: Anion Gap 3 (5-15); BUN 29 mg/dL (7-18); BUN/Creat Ratio 36.5 RATIO (10-20); Calcium,Total 8.9 mg/dL (8.5-10.1); Chloride 106 mmol/L (98-107); EST Glomerular Filtration Rate 73 mL/min (>60); Est Glom Filt Rate - Afr Amer 89 mL/min (>60); Estimated Creatinine Clearance 56.04 ml/min; Glucose 91 mg/dL (74-106); Potassium 4.4 mmol/L (3.5-5.1); Sodium Level 140 mmol/L (136-145)
[2024-12-17 08:00] VITALS: O2SAT 96
[2024-12-17 08:14] VITALS: BP 113/46; PULSE 65; RESP 18; TEMP 36.3; O2SAT 92
[2024-12-17] MEDS: BENZOCAINE/MENTHOL 1 LOZENGE MUCOUS MEM (08:18)
[2024-12-17] MEDS: Ensure Plus High Protein 120 ML LIQUID PO (08:18)
[2024-12-17] MEDS: Cefdinir 300 MG Capsule PO ×2 (08:19→19:07)
[2024-12-17] MEDS: amLODIPine 5 MG Tablet PO (08:19)
[2024-12-17] MEDS: Menthol/Lanolin/Calamine/Znox 113 GM Tube 1 APPLIC TOPICAL ×2 (08:21→19:08)
[2024-12-17] MEDS: Nystatin Powder 15gm Bottle 1 APPLIC TOPICAL ×2 (08:21→19:08)
[2024-12-17 08:52] VITALS: O2SAT 91
[2024-12-17] MEDS: Tuberculin,Purif.prot.deriv. 50 TU/ML Vial 0.1 ML ID (11:18)
[2024-12-17] MEDS: 0.9% Saline Lock 10 ML Syringe IV (11:18)
[2024-12-17 11:34] VITALS: RESP 18
[2024-12-17] MEDS: Albuterol 2.5 MG/3 ML VIAL.NEB. INHALATION ×2 (11:43→19:26)
[2024-12-17 11:44] VITALS: PULSE 77; RESP 21
--- NOTE | 2024-12-17 16:59 | NURSING ---
dr yanes notified of pt refusing lovenox injections, pt educated on importance of blood clot prevention. pt continues to refuse. new order to DC. pt up with walker ambulates well, steady gait.
[2024-12-17 19:26] VITALS: PULSE 62; RESP 22
[2024-12-18] MEDS: amLODIPine 5 MG Tablet PO (08:59)
[2024-12-18] MEDS: Cefdinir 300 MG Capsule PO (08:59)
[2024-12-18] MEDS: Nystatin Powder 15gm Bottle 1 APPLIC TOPICAL ×2 (08:59→19:56)
--- NOTE | 2024-12-18 08:59 | NURSING ---
Offered covid vaccine, VIS provided. Resident declines at this time.
[2024-12-18] MEDS: Menthol/Lanolin/Calamine/Znox 113 GM Tube 1 APPLIC TOPICAL ×2 (09:00→19:57)
[2024-12-18] MEDS: Triamcinolone 0.1% Ointment 15 gm tube 1 APPLIC TOPICAL ×2 (09:00→19:56)
--- NOTE | 2024-12-18 11:15 | CASEMGMT ---
Social Work SW met with patient to complete initial assessment. Introduced self and role. Verified contacts. Pt confirmed code status as DNR-CCA, no intubation. Advanced directives are on file naming son, Gerry as HCPOA. SW educated to Medicare benefit and copay coverage. Pt's goal is to return home quickly. SW suggested remaining until IDT recommends DC to reduce risk of rehospitalization. pt is new on O2 and pt would like to be on room air at DC. Pt is on ATB for PNA. SW to assist with DC planning. - SW received call from pt's CM Tania Nguyen. Pt is active with [facility] Care Coordination Program, receiving [employer]'s Meals 7 meals Q2 weeks. Pt cooks otherwise. 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 However, Tania noted that staffing is difficulty and pt has not been receiving aides consistently. Tania plans to continue searching for agencies to staff hours. SW to keep CM updated on DC plans/date. Dinorah Morelos SENIOR FACILITIES MANAGER OPERATIONAL METEOROLOGIST
[2024-12-18 11:42] VITALS: BP 106/52; PULSE 65; RESP 18; TEMP 36.5; O2SAT 92
--- NOTE | 2024-12-18 11:52 | NURSING ---
Mobile Lounge Driver Note; Activity Asset: Pam Davila is independent in her choice of daily activities. She enjoys puzzles, talking w/others, reading the paper and playing games on her iphone. She welcomes visits from the tiller man and putting puzzles together in the day room. Staff will encourage social activities, remind her of weekly activities and respect her right to say no.
--- NOTE | 2024-12-18 11:56 | NURSING ---
New order received from Dr. Javier 1) Triamcinolone cream- apply small amount to affected areas BID. Patient aware. Cream applied to lower back, under bilateral breasts, and bilateral inner thighs. Tolerated well.
[2024-12-18 13:15] VITALS: O2SAT 94
--- NOTE | 2024-12-18 14:23 | PCM.PN.DRR ---
Documented by User: Tory Riddle 12/18/24 15:23 TCU RX Drug Regimen Review Subjective/Objective Subjective/Objective Subjective: TCU Admission. 84 YOF presented to ER with SOB. Hospitalized for acute respiratory failure with hypoxia 2/2 right middle lobe pneumonia, pulmonary embolism ruled out, complicated by urinary tract infection. Admitted to TCU with debility for strengthening and rehabilitation. Objective: Allergies rosuvastatin (From Crestor) Allergy (Severe, Verified 12/12/24 14:25) stomach pains shellfish derived Allergy (Severe, Verified 12/12/24 14:25) MOUTH SORES sulfamethoxazole (From Bactrim) Allergy (Unknown, Verified 12/12/24 14:25) unknown trimethoprim (From Bactrim) Allergy (Unknown, Verified 12/12/24 14:25) unknown Current Medications Generic Name Dose Route Start Last Admin Trade Name Freq PRN Reason Stop Dose Admin Acetaminophen 1,000 mg 12/16/24 16:08 Acetaminophen 500 Mg Tablet PO Q6H PRN PRN Pain Score 1-10 Al Hydroxide/Mg Hydroxide 30 ml 12/16/24 15:07 Mag Hydrox/Al Hydrox/Simeth 30 Ml Udc PO Q6H PRN PRN Gastric Burning Albuterol Sulfate 2.5 mg 12/16/24 15:07 12/17/24 19:26 Albuterol 2.5 Mg/3 Ml Vial.Neb. INHALATION 2.5 mg Q2H PRN PRN Administration SOB &/OR WHEEZING Amlodipine Besylate 5 mg 12/17/24 10:00 12/18/24 08:59 Amlodipine 5 Mg Tablet PO 5 mg DAILY QUINTIN Administration Protocol Calamine/Phenol 1 applic 12/16/24 22:00 12/18/24 09:00 Menthol/Lanolin/Calamine/Znox 113 Gm Tube TOPICAL 1 applic BID QUINTIN Administration Protocol Cefdinir 300 mg 12/16/24 22:00 12/18/24 08:59 Cefdinir 300 Mg Capsule PO 12/21/24 10:01 300 mg BID QUINTIN Administration Melatonin 3 mg 12/16/24 15:07 Melatonin 3 Mg Tablet PO QHS PRN PRN Insomnia Nystatin 1 applic 12/16/24 22:00 12/18/24 08:59 Nystatin Powder 15gm Bottle TOPICAL 1 applic BID QUINTIN Administration Protocol Senna/Docusate Sodium 2 tablet 12/16/24 15:07 Senna/Docusate Sodium 1 Tablet PO BID PRN PRN Constipation Sodium Chloride 10 - 40 ml 12/16/24 14:32 12/17/24 11:18 0.9% Saline Lock 10 Ml Syringe IV 10 ml UD PRN Administration SALINE FLUSH Throat Lozenges 1 lozenge 12/16/24 15:07 12/17/24 08:18 Benzocaine/Menthol 1 Lozenge MUCOUS MEM 1 lozenge Q2H PRN PRN Administration SORE THROAT Triamcinolone Acetonide 1 applic 12/18/24 10:00 12/18/24 09:00 Triamcinolone 0.1% Ointment 15 Gm Tube TOPICAL 1 applic BID QUINTIN Administration Protocol Tuberculin PPD 0.1 ml 12/24/24 10:00 Tuberculin,Purif.Prot.Deriv. 50 Tu/Ml Vial ID 12/24/24 10:01 X1 ONE Problem List Essential (primary) hypertension (Acute) Urinary tract infection (Acute) Pneumonia (Acute) Acute respiratory failure with hypoxia (Acute) Debility (Chronic) Vital Signs Temp Pulse Resp BP Pulse Ox O2 Del Method O2 Flow Rate 97.7 F L 65 18 106/52 L 92 Nasal Cannula 3 12/18/24 11:42 12/18/24 11:42 12/18/24 11:42 12/18/24 11:42 12/18/24 11:42 12/18/24 11:42 12/18/24 11:42 Oxygen Flow Rate (L/min) 3 Oxygen Delivery Method Nasal Cannula Weight: 88.541 kg Body Mass Index (BMI) 35.6 Sodium 140 mmol/L (136-145) 12/17/24 05:42 Potassium 4.4 mmol/L (3.5-5.1) 12/17/24 05:42 Chloride 106 mmol/L (98-107) 12/17/24 05:42 Carbon Dioxide 31.0 mmol/L (21.0-32.0) 12/17/24 05:42 Anion Gap 3 (5-15) L 12/17/24 05:42 BUN 29 mg/dL (7-18) H 12/17/24 05:42 Creatinine 0.80 mg/dL (0.55-1.02) 12/17/24 05:42 Est GFR (MDRD) Af Amer 89 mL/min (>60) 12/17/24 05:42 Est GFR (MDRD) Non-Af 73 mL/min (>60) 12/17/24 05:42 BUN/Creatinine Ratio 36.5 RATIO (10-20) H 12/17/24 05:42 Glucose 91 mg/dL (74-106) 12/17/24 05:42 Assessment/Plan: 1. Pain: acetaminophen 1000mg PO Q6H PRN pain 1-10. No PRN doses given. Please continue to monitor for increased pain, PRN usage. 2. Bowel: senna/docusate 2T PO BID PRN constipation. No PRN doses given. Please continue to monitor for constipation and PRN usage. 3. Pneumonia/UTI: cefdinir 300mg PO BID thru 12/21/24. Cefdinir does not cover enterococcus., please consider using amoxicillin instead. Thanks. Please continue to monitor for S/S of infection, stool discoloration, diarrhea and renal function. 4. Hypertension: amlodipine 5mg PO daily. Please continue to monitor BP (last 106/52) and swelling. 5. Shortness of breath: albuterol 2.5mg nebulized solution Q2H PRN SOB. Resident has had 2 doses. Please continue to monitor HR, PRN usage, SOB. 6. Sore throat: Cepacol 1 lozenge MM Q2H PRN sore throat. Resident has used 2 doses. Please continue to monitor for sore throat and PRN usage. 7. Indigestion: Mylanta II 30mL Q6H PRN gastric burning. Resident has not used any PRN doses. Please continue to monitor for PRN usage and gastric burning. 8. Insomnia: melatonin 3mg PO QHS PRN insomnia. No doses given yet. Please continue to monitor for insomnia and PRN usage. 9. Psoriasis: Triamcinolone 0.1% ointment topical BID. Please continue to monitor improvement in psoriasis. 10. Skin irritation/Tinea Corporis: Calmoseptine topical bid and Nystatin power topical bid. Assessment/Plan for indications treated with psychotropic medications: None Medical chart and medication regimen reviewed. The following medication irregularities or issues were identified: 1. Cefdinir 300mg PO BID thru 12/21/24. Cefdinir does not cover enterococcus, please consider using amoxicillin instead. Thanks. Date Date of Note: 12/18/24 Documented by User: Dr. Vishal Javier MD 12/18/24 15:52 TCU RX Drug Regimen Review Provider Comments Provider responsibility Provider Comments to Recommendations by Pharmacy Agree
[2024-12-18] MEDS: AMOXICILLIN 500 MG CAPSULE PO ×2 (17:09→19:52)
--- NOTE | 2024-12-18 17:12 | NURSING ---
New orders received from Dr. Javier 1) D/C Cefdinir 2) Start Amoxicillin 500mg- po every 8 hours x3 days. Patient aware of new orders.
[2024-12-18 19:43] VITALS: PULSE 52
[2024-12-19] MEDS: AMOXICILLIN 500 MG CAPSULE PO ×3 (05:24→20:23)
[2024-12-19 05:59] VITALS: RESP 16
[2024-12-19 08:15] VITALS: BP 115/62; PULSE 64; RESP 16; TEMP 36.2; O2SAT 94
[2024-12-19] MEDS: amLODIPine 5 MG Tablet PO (08:18)
[2024-12-19] MEDS: Triamcinolone 0.1% Ointment 15 gm tube 1 APPLIC TOPICAL ×2 (08:19→20:23)
[2024-12-19] MEDS: Nystatin Powder 15gm Bottle 1 APPLIC TOPICAL ×2 (08:20→20:26)
[2024-12-19] MEDS: Menthol/Lanolin/Calamine/Znox 113 GM Tube 1 APPLIC TOPICAL ×2 (08:21→20:26)
[2024-12-19 11:54] VITALS: O2SAT 94
--- NOTE | 2024-12-19 11:54 | NURSING ---
pt decreased to 2 liters during therapy earlier. will monitor pulse ox to continue to wean.
--- NOTE | 2024-12-19 15:49 | NURSING ---
pt notified of staff member testing positive for covid.
[2024-12-19 20:28] VITALS: PULSE 58; O2SAT 94
[2024-12-19 20:52] VITALS: PULSE 58; RESP 24; O2SAT 93
[2024-12-19] MEDS: Albuterol 2.5 MG/3 ML VIAL.NEB. INHALATION (20:52)
[2024-12-20] MEDS: AMOXICILLIN 500 MG CAPSULE PO ×3 (05:17→20:50)
--- NOTE | 2024-12-20 05:21 | NURSING ---
When this nurse asked pt if it would be okay to administer Covid-19 test per order, pt refused and stated she was not taking it at this time. Pt voiced she has had painful tests in the past, this nurse educated pt on the different types of Covid-19 testing and reassured her that this one is not a PCR test that required swab to be inserted further causing pain, but pt continued to decline.
[2024-12-20] MEDS: Menthol/Lanolin/Calamine/Znox 113 GM Tube 1 APPLIC TOPICAL ×2 (08:50→20:51)
[2024-12-20] MEDS: Triamcinolone 0.1% Ointment 15 gm tube 1 APPLIC TOPICAL ×2 (08:51→20:51)
[2024-12-20] MEDS: Nystatin Powder 15gm Bottle 1 APPLIC TOPICAL ×2 (08:52→20:52)
[2024-12-20] MEDS: amLODIPine 5 MG Tablet PO (08:52)
[2024-12-20 08:54] VITALS: BP 109/56; PULSE 69; RESP 16; O2SAT 94
--- NOTE | 2024-12-20 09:38 | CASEMGMT ---
Social Work IDT met with patient and dtr for care plan meeting. Discussed patient's progress in PT/OT/SN. Educated to Medicare benefit and copay coverage. Provided written communication on insurance process and copay coverage during stay. Pt is on new O2. The goal is to wean pt off of O2 prior to home alone. Pt is active with Care Coordination. However, dtr expressed concern with pt having enough to eat as pt gets 7 meals every other week. SW and Dietitian assisted in educating to the benefits of nutrition and offered an increase in meals. Pt states she uses one meal for two meals and goes out to eat, but will consider increasing meal delivery. Dtr also concerned with completing meal prep tasks with her activity tolerance and completing laundry and housekeeping. MAE updated to focus on these tasks. SW explained once these tasks are improved upon and without O2, then pt can DC home. Pt and dtr agreeable. SW to follow for DC planning. Dinorah Morelos SURVEILLANCE SYSTEM MONITOR TERRAZZO HELPER
[2024-12-20 13:13] VITALS: O2SAT 91
[2024-12-20 14:08] VITALS: BMI 35.1
[2024-12-20 21:00] VITALS: PULSE 64; O2SAT 93
[2024-12-21] MEDS: AMOXICILLIN 500 MG CAPSULE PO ×3 (05:16→20:00)
[2024-12-21 06:17] VITALS: PULSE 60; O2SAT 93
[2024-12-21 08:19] VITALS: O2SAT 94
[2024-12-21] MEDS: Triamcinolone 0.1% Ointment 15 gm tube 1 APPLIC TOPICAL ×2 (09:52→20:01)
[2024-12-21] MEDS: amLODIPine 5 MG Tablet PO (09:53)
[2024-12-21] MEDS: Nystatin Powder 15gm Bottle 1 APPLIC TOPICAL ×2 (09:54→20:01)
[2024-12-21] MEDS: Menthol/Lanolin/Calamine/Znox 113 GM Tube 1 APPLIC TOPICAL ×2 (09:54→20:01)
[2024-12-21 10:01] VITALS: BP 129/73; PULSE 65
--- NOTE | 2024-12-21 13:44 | MDS.RN ---
MDS pain assessment complete.
[2024-12-21 15:03] VITALS: BP 117/64; PULSE 64; RESP 20; TEMP 36.9; O2SAT 91
--- NOTE | 2024-12-21 20:04 | NURSING ---
HS medications administered at 2000 per pt request so she can go to sleep.
[2024-12-22 07:03] LABS: Absolute Lymphocyte Count 1.05 X10^3/uL (0.83-4.51); Absolute Neutrophil Count 1.7 X10^3/uL (2.0-7.7); Basophil# 0.06 X10^3/uL; Basophil% 1.6 % (0-1); Eosinophil# 0.31 X10^3/uL; Eosinophils% 8.5 % (0-5); Hematocrit 38.2 % (37-47); Hemoglobin 11.8 g/dL (12.0-15.0); Lymphocyte # 1.05 X10^3/ul (0.83-4.51); Lymphocyte % 28.7 % (19-41); Mean Corp Hgb Conc 30.9 g/dL (32-36); Mean Corpuscular Volume 93.9 fL (81-99); Mean Platelet Vol. 8.6 fl (6.2-12.0); Monocyte# 0.51 X10^3/uL; Monocyte% 13.9 % (0-10); NRBC Flagged by Analyzer 0 % (0-5); Neutrophil % 46.5 % (47-70); Platelet Count 295 K/mm3 (150-450); RBC Distribution Width CV 15.8 % (11.6-14.6); RBC Distribution Width SD 53.8 fl (35.1-43.9); Red Blood Count 4.07 M/mm3 (4.2-5.4); White Blood Count 3.7 K/mm3 (4.4-11.0)
[2024-12-22 07:38] LABS: Anion Gap 6 (5-15); BUN 25 mg/dL (7-18); BUN/Creat Ratio 26.9 RATIO (10-20); Calcium,Total 8.7 mg/dL (8.5-10.1); Chloride 108 mmol/L (98-107); Creatinine, Serum 0.93 mg/dL (0.55-1.02); EST Glomerular Filtration Rate 61 mL/min (>60); Est Glom Filt Rate - Afr Amer 74 mL/min (>60); Estimated Creatinine Clearance 47.65 ml/min; Glucose 83 mg/dL (74-106); Potassium 4.1 mmol/L (3.5-5.1); Sodium Level 140 mmol/L (136-145)
[2024-12-22 08:06] VITALS: BP 120/49; PULSE 66; RESP 16; TEMP 36.3; O2SAT 93
[2024-12-22] MEDS: amLODIPine 5 MG Tablet PO (08:10)
[2024-12-22] MEDS: Triamcinolone 0.1% Ointment 15 gm tube 1 APPLIC TOPICAL ×2 (08:11→21:47)
[2024-12-22] MEDS: Menthol/Lanolin/Calamine/Znox 113 GM Tube 1 APPLIC TOPICAL ×2 (08:11→21:48)
[2024-12-22] MEDS: Nystatin Powder 15gm Bottle 1 APPLIC TOPICAL ×2 (08:11→21:49)
[2024-12-22] MEDS: Albuterol 2.5 MG/3 ML VIAL.NEB. INHALATION (08:30)
[2024-12-22 08:55] VITALS: PULSE 62; RESP 19; O2SAT 93
--- NOTE | 2024-12-22 14:16 | CASEMGMT ---
BIMS () and PHQ2 () interview completed on this date for MDS assessment. NAJMA Chacon
[2024-12-22 17:17] VITALS: PULSE 70; RESP 18
[2024-12-23 08:17] VITALS: O2SAT 94
[2024-12-23] MEDS: amLODIPine 5 MG Tablet PO (08:22)
[2024-12-23] MEDS: Triamcinolone 0.1% Ointment 15 gm tube 1 APPLIC TOPICAL ×2 (08:23→22:19)
[2024-12-23] MEDS: Menthol/Lanolin/Calamine/Znox 113 GM Tube 1 APPLIC TOPICAL ×2 (08:23→22:24)
[2024-12-23] MEDS: Nystatin Powder 15gm Bottle 1 APPLIC TOPICAL ×2 (08:24→22:25)
[2024-12-23 10:54] VITALS: BP 110/67; PULSE 62; RESP 16; TEMP 36.5; O2SAT 96
[2024-12-24] MEDS: Triamcinolone 0.1% Ointment 15 gm tube 1 APPLIC TOPICAL ×2 (08:22→19:59)
[2024-12-24] MEDS: amLODIPine 5 MG Tablet PO (08:22)
[2024-12-24] MEDS: Nystatin Powder 15gm Bottle 1 APPLIC TOPICAL ×2 (08:23→19:53)
[2024-12-24] MEDS: Menthol/Lanolin/Calamine/Znox 113 GM Tube 1 APPLIC TOPICAL ×2 (08:23→19:54)
[2024-12-24] MEDS: Tuberculin,Purif.prot.deriv. 50 TU/ML Vial 0.1 ML ID (10:10)
[2024-12-24 10:51] VITALS: BP 124/75; PULSE 66; RESP 16; TEMP 36.3; O2SAT 95
[2024-12-25 05:39] VITALS: PULSE 66; RESP 18; O2SAT 95
[2024-12-25 06:50] VITALS: O2SAT 94
[2024-12-25] MEDS: Nystatin Powder 15gm Bottle 1 APPLIC TOPICAL ×2 (07:58→21:04)
[2024-12-25] MEDS: Menthol/Lanolin/Calamine/Znox 113 GM Tube 1 APPLIC TOPICAL ×2 (07:59→21:04)
[2024-12-25] MEDS: Triamcinolone 0.1% Ointment 15 gm tube 1 APPLIC TOPICAL ×2 (07:59→21:03)
[2024-12-25] MEDS: amLODIPine 5 MG Tablet PO (08:00)
--- NOTE | 2024-12-25 09:06 | NURSING ---
Assistant Speech Language Pathologist Note; MDS for 12/23/2024 Complete
[2024-12-25 10:08] VITALS: BP 125/69; PULSE 63; RESP 16; TEMP 36.6; O2SAT 98
[2024-12-25 12:42] VITALS: O2SAT 96
[2024-12-26 07:20] VITALS: O2SAT 93
[2024-12-26 07:41] VITALS: BP 121/56; PULSE 56; RESP 16; TEMP 36.4; O2SAT 94
[2024-12-26] MEDS: Triamcinolone 0.1% Ointment 15 gm tube 1 APPLIC TOPICAL ×2 (07:43→20:03)
[2024-12-26] MEDS: amLODIPine 5 MG Tablet PO (07:43)
[2024-12-26] MEDS: Nystatin Powder 15gm Bottle 1 APPLIC TOPICAL ×2 (07:44→20:03)
[2024-12-26] MEDS: Menthol/Lanolin/Calamine/Znox 113 GM Tube 1 APPLIC TOPICAL ×2 (07:44→20:03)
[2024-12-26 11:38] VITALS: BMI 35.7
[2024-12-26 13:16] VITALS: PULSE 78; RESP 16; O2SAT 92
--- NOTE | 2024-12-26 13:52 | MDS.RN ---
Information for the MDS was obtained from review of the clinical record, interview of resident, staff, and direct observation of resident?s care.
[2024-12-26 16:48] VITALS: O2SAT 94
--- NOTE | 2024-12-26 16:51 | NURSING ---
WALKED WITH PT WITH ROLLATOR ON 1L OF 02 3 LAPS IN BAUER. PT TOLERATED WELL AND HELD OXYGEN AT 93%. PT BACK IN RECLINER AND OXYGEN NOW AT 95% ON 1L. PT ASKING ABOUT GETTING RID OF OXYGEN AND THIS NURSE STATED SHE COULD TAKE IT OFF WHILE SITTING BUT KEEP IT BY HER SIDE IN CASE SHE FELT SHE NEEDED IT AND WE WOULD MONITOR. PT STATED THANK YOU.
[2024-12-27 06:24] VITALS: PULSE 59; RESP 18; O2SAT 91
[2024-12-27 08:02] VITALS: BP 120/62; PULSE 66; RESP 16; TEMP 36.3; O2SAT 94
[2024-12-27] MEDS: amLODIPine 5 MG Tablet PO (08:04)
[2024-12-27 09:47] VITALS: O2SAT 96
[2024-12-27] MEDS: Nystatin Powder 15gm Bottle 1 APPLIC TOPICAL (10:36)
[2024-12-27] MEDS: Menthol/Lanolin/Calamine/Znox 113 GM Tube 1 APPLIC TOPICAL (10:36)
[2024-12-27] MEDS: Triamcinolone 0.1% Ointment 15 gm tube 1 APPLIC TOPICAL (10:37)
--- NOTE | 2024-12-28 02:14 | NURSING ---
Pt states her skin is all cleared up and refused bea, nystatin powder, and kenalog ointment at HS. Denies further needs and is resting in bed at this time.
[2024-12-28 10:00] VITALS: O2SAT 92
[2024-12-28] MEDS: Nystatin Powder 15gm Bottle 1 APPLIC TOPICAL ×2 (10:25→20:32)
[2024-12-28] MEDS: Triamcinolone 0.1% Ointment 15 gm tube 1 APPLIC TOPICAL ×2 (10:25→20:33)
[2024-12-28] MEDS: amLODIPine 5 MG Tablet PO (10:25)
[2024-12-28] MEDS: Menthol/Lanolin/Calamine/Znox 113 GM Tube 1 APPLIC TOPICAL ×2 (10:26→20:32)
[2024-12-28 14:17] VITALS: BP 123/63; PULSE 68; RESP 16; TEMP 36.7; O2SAT 92
[2024-12-28 17:32] VITALS: O2SAT 93
[2024-12-29 05:52] LABS: Absolute Neutrophil Count 1.3 X10^3/uL (2.0-7.7); Basophil# 0.05 X10^3/uL; Basophil% 1.3 % (0-1); Eosinophil# 0.46 X10^3/uL; Eosinophils% 11.9 % (0-5); Hematocrit 38.7 % (37-47); Hemoglobin 12.1 g/dL (12.0-15.0); Lymphocyte % 36.4 % (19-41); Mean Corp Hgb Conc 31.3 g/dL (32-36); Mean Corpuscular Hgb 28.9 pg (27.0-32.0); Mean Corpuscular Volume 92.6 fL (81-99); Mean Platelet Vol. 8.6 fl (6.2-12.0); Monocyte# 0.59 X10^3/uL; Monocyte% 15.3 % (0-10); NRBC Flagged by Analyzer 0 % (0-5); Neutrophil # 1.34 X10^3/uL (2.7-7.7); Neutrophil % 34.8 % (47-70); Platelet Count 214 K/mm3 (150-450); RBC Distribution Width SD 54.4 fl (35.1-43.9); Red Blood Count 4.18 M/mm3 (4.2-5.4); White Blood Count 3.9 K/mm3 (4.4-11.0)
[2024-12-29 06:30] VITALS: BP 110/60; PULSE 57; RESP 18; TEMP 36.7; O2SAT 92
[2024-12-29 08:10] LABS: Anion Gap 8 (5-15); BUN 26 mg/dL (7-18); BUN/Creat Ratio 28.8 RATIO (10-20); Calcium,Total 8.9 mg/dL (8.5-10.1); Chloride 110 mmol/L (98-107); EST Glomerular Filtration Rate 63 mL/min (>60); Est Glom Filt Rate - Afr Amer 77 mL/min (>60); Estimated Creatinine Clearance 49.87 ml/min; Glucose 89 mg/dL (74-106); Potassium 4.4 mmol/L (3.5-5.1); Sodium Level 143 mmol/L (136-145)
[2024-12-29 10:15] VITALS: O2SAT 93
[2024-12-29] MEDS: Triamcinolone 0.1% Ointment 15 gm tube 1 APPLIC TOPICAL ×2 (10:21→19:51)
[2024-12-29] MEDS: Nystatin Powder 15gm Bottle 1 APPLIC TOPICAL ×2 (10:22→19:51)
[2024-12-29] MEDS: amLODIPine 5 MG Tablet PO (10:22)
[2024-12-29] MEDS: Menthol/Lanolin/Calamine/Znox 113 GM Tube 1 APPLIC TOPICAL ×2 (10:22→19:50)
[2024-12-29 10:34] VITALS: BP 107/59; PULSE 65; RESP 18; TEMP 36.3; O2SAT 93
[2024-12-29 12:29] VITALS: PULSE 69; RESP 20
[2024-12-29] MEDS: Albuterol 2.5 MG/3 ML VIAL.NEB. INHALATION (12:29)
[2024-12-30] MEDS: amLODIPine 5 MG Tablet PO (08:56)
[2024-12-30] MEDS: Triamcinolone 0.1% Ointment 15 gm tube 1 APPLIC TOPICAL (08:56)
[2024-12-30] MEDS: Nystatin Powder 15gm Bottle 1 APPLIC TOPICAL (09:00)
[2024-12-30 16:00] VITALS: BP 118/64; PULSE 70; RESP 18; TEMP 36.6; O2SAT 90
[2024-12-30 19:30] VITALS: PULSE 86; O2SAT 91
[2024-12-31 06:38] VITALS: O2SAT 91
[2024-12-31 09:54] VITALS: BP 123/68; PULSE 61; RESP 16; TEMP 36.4; O2SAT 93
[2024-12-31] MEDS: amLODIPine 5 MG Tablet PO (09:55)
[2024-12-31] MEDS: Nystatin Powder 15gm Bottle 1 APPLIC TOPICAL (09:56)
[2024-12-31 10:17] VITALS: PULSE 76; RESP 18
[2024-12-31] MEDS: Albuterol 2.5 MG/3 ML VIAL.NEB. INHALATION (10:17)
--- NOTE | 2024-12-31 11:50 | NURSING ---
New order per Dr. Javier to change scheduled Kenalog cream to prn BID.
[2024-12-31 14:15] VITALS: PULSE 72; RESP 18; O2SAT 91
[2024-12-31 16:00] VITALS: TEMP 37.2
[2025-01-01] MEDS: amLODIPine 5 MG Tablet PO (10:35)
--- NOTE | 2025-01-01 10:42 | CASEMGMT ---
Social Work SW met with pt to discuss DC plans. Pt has successful stayed off O2 over the weekend and is requesting to DC home 01/03. IDT agreeable. Dtr can transport after work about 1500. SW inquired about rollator or other DME needs. Pt denied. SW offered skilled HHC. Pt agreed and has no preference to agency. SW offered list of providers that include quality and resource data via [employer]. Pt denied and accepted [facility]. SW to coordinate. SW completed BIMS () and PHQ-2 () for MDS assessment. - SW phoned referral to [facility] for PT/SN - SW left VM with MIKHAIL Nguyen to notify of DC and restart services. Plan: DC home 01/03, [facility] PT/SN Dinorah SCHOFIELDW
[2025-01-01 16:00] VITALS: BP 124/65; PULSE 65; RESP 20; TEMP 36.9; O2SAT 92
--- NOTE | 2025-01-01 19:30 | DS.PCM_ITS ---
Providers Date of Admission: 12/16/24 Primary Care Physician: Dr. Mio Juarez MD Reason For Visit: PNEUMONIA Diagnosis Discharge Diagnosis (1) Debility: Status: Chronic Code(s): R53.81 - Other malaise (2) Acute respiratory failure with hypoxia: Status: Acute Code(s): J96.01 - Acute respiratory failure with hypoxia (3) Pneumonia: Status: Acute Code(s): J18.9 - Pneumonia, unspecified organism (4) Urinary tract infection: Status: Acute Code(s): N39.0 - Urinary tract infection, site not specified (5) Essential (primary) hypertension: Status: Acute Code(s): I10 - Essential (primary) hypertension Plan 84 year old female with below past medical history hospitalized for acute respiratory failure with hypoxia 2/2 right middle lobe pneumonia, pulmonary embolism ruled out, complicated by urinary tract infection, admitted to TCU with debility, here for rehabilitation, strengthening, prior to discharge home alone. * Debility - PT/OT. * Pain - Tylenol 1000mg q6 prn pain (1-10). * Bowel - senna/colace 2 tablets bid prn. * Adult immunization - Administer pneumonia vaccine, covid vaccine, flu vaccine as appropriate. * DVT prophylaxis - Lovenox 40mg sc daily. * Shortness of breath - Albuterol 2.5mg neb q2h prn. * Hypertension - Amlodipine 5mg daily. * Sore throat - Cepacol 1 lozenge q2h prn. * Pneumonia/UTI - Cefdinir 300mg bid thru 12/21/2024. * Nutrition - Ensure Plus 120mL po tidcm. * Indigestion - Mylanta 2 30mL q6 prn. * Insomnia - Melatonin 3mg qhs prn. * Skin irritation - Calmoseptine topical bid. * Tinea Corporis - Nystatin power topical bid. * Hypoxia - Wean oxygen as tolerated. * Plaque psoriasis - add Triamcinolone cream bid. Medications at Discharge Home Medications amlodipine 5 mg tablet 5 mg PO DAILY BP #90 TABLETS 04/11/24 albuterol sulfate 2.5 mg/3 mL (0.083 %) solution for nebulization 2.5 mg (3 mL) inhalation Q2H PRN PRN SOB &/OR WHEEZING 30 days #540 mL 01/01/25 Hospital Course Operations None Procedures None Summary of Care Provided Minutes Spent on Discharge: 35 Hospital Course: 84 year old female with below past medical history hospitalized for acute respiratory failure with hypoxia 2/2 right middle lobe pneumonia, pulmonary embolism ruled out, complicated by urinary tract infection, admitted to TCU with debility, here for rehabilitation, strengthening, prior to discharge home alone. Resident was able to wean off oxygen. Discharge home 01/03/2025, [facility] PT/SN. Physical Exam Const alert General Appearance: cooperative HEENT normocephalic Eyes PERRL and EOMs intact bilaterally Neck supple, no JVD and no carotid bruits Resp normal respiratory effort, normal air movement and clear to auscultation bilaterally Cardio regular rate and regular rhythm GI normal to inspection, nondistended, normoactive bowel sounds, non-tender and non-distended Extremity normal capillary refill General Extremity: Negative for edema Skin no rashes or lesions noted General Skin Exam: no breakdown Psych affect normal Appearance: appropriate Weight / BMI Weight Weight: 88.723 kg Body Mass Index (BMI) 35.7 ABG / Lab / Microbiology Data 12/29/24 05:18 12/29/24 05:18 Microbiology: Microbiology 12/27/24 Unknown Nasal Secretion SARS-CoV-2 Antigen (Rapid) - Final 12/20/24 08:40 Nasal Secretion SARS-CoV-2 Antigen (Rapid) - Final D/C Instructions Discharge Diet: No restrictions Discharge Activity: Return to Normal Activity, May Shower and Use Walker Weight Bearing Status: Weight bearing as tolerated Call your doctor if you observe: Fever of 101 or Higher, Inability to urinate, Inability to have a bowel movement, Shortness of breath, Dizziness, Fainting spells, Swelling in the ankles, Chest pain and Uncontrolled pain DC O2, CPAP, BIPAP Needs PSN CPAP & BiPAP: BiPAP & CPAP Settings per PSN Fraction of Inspired Oxygen ( 93 12/22/24 17:17 FIO2) Home O2 Discharge instructions: No Additional Instructions: Discharge home 01/03/2025, [facility] PT/SN. Meaningful Use Info Meaningful Use Meaningful Use Diagnoses (Choose all that apply): None applicable Ischemic Stroke Statin Dosing Therapy Reference: STATIN DOSE THERAPY REFERENCE: * Patients > 75 years receive moderate or high dose statin therapy. * Patients 75 years or YOUNGER should receive HIGH intensity statin dose unless contraindicated. You will be required to document reason for non-treatment if statin daily dose does not meet guidelines. HIGH DOSE STATIN THERAPY DAILY Atorvastatin > than or = to 40 mg Rosuvastatin > than or = to 20 mg Amlodipine + Atorvastatin > than or = to 2.5/40 mg Ezetimibe + Simvastatin 10/80 mg Simvastatin 80mg Discharge Plan Admission Admit Date/Time: 12/16/24 14:08 Primary Reason for Your Visit: Debility. Attending Provider: Vishal Javier Chi Primary Care Provider: Mio Juarez Instructions Additional Instructions / Restrictions: Discharge home 01/03/2025, [facility] PT/SN. Discharge Orders/Prescriptions Prescriptions: New albuterol sulfate 2.5 mg /3 mL (0.083 %) Solution For Nebulization 2.5 mg inhalation Q2H PRN PRN (Reason: SOB &/OR WHEEZING) 30 Days Qty: 540 0RF Continued amlodipine 5 mg tablet 5 mg PO DAILY Qty: 90 3RF Discontinued acetaminophen 325 mg Tablet 650 mg PO Q6H PRN PRN (Reason: Pain 1-10 Or Fever>100.7) Qty: 0 0RF albuterol sulfate 2.5 mg /3 mL (0.083 %) Solution For Nebulization 2.5 mg inhalation Q2H PRN PRN (Reason: SOB &/OR WHEEZING) Qty: 0 0RF sennosides-docusate sodium [Stimulant Laxative Plus] 8.6-50 mg Tablet 2 tab PO BID PRN PRN (Reason: Constipation) Qty: 0 0RF melatonin 3 mg Tablet 3 mg PO QHS PRN PRN (Reason: Insomnia) Qty: 0 0RF alum-mag hydroxide-simeth [Mag-Al Plus Extra Strength] 400-400-40 mg/5 mL Suspension 30 ml PO Q6H PRN PRN (Reason: Gastric Burning) Qty: 0 0RF menthol-zinc oxide [Calmoseptine] 0.44-20.6 % Ointment 1 applic topical BID Qty: 0 0RF Protocol: *Topical Application Instructions APPLICATION INSTRUCTIONS: buttocks Sore Throat (benzocaine-menth) 15-3.6 mg Lozenge 1 jesusita mucous membrane Q2H PRN PRN (Reason: SORE THROAT) Qty: 0 0RF Ensure Plus High Protein 0.08 gram-1.5 kcal/mL Liquid 120 ml PO TIDCM Qty: 0 0RF cefdinir 300 mg capsule 300 mg PO BID Qty: 10 0RF Referrals / Follow Up: Vishal Javier Chi, MD [Med Staff - Active Staff] - Within 1 Week (New patient exam/TCU TCM appointment. ) Disposition Disposition (needs filled in before D/C Order can be placed): Home Health Service
[2025-01-01 21:48] VITALS: PULSE 66; O2SAT 91
[2025-01-02 10:00] VITALS: BP 114/64; PULSE 66; RESP 20; TEMP 37.1; O2SAT 92
[2025-01-02] MEDS: amLODIPine 5 MG Tablet PO (10:30)
--- NOTE | 2025-01-02 14:35 | CASEMGMT ---
Social Work Overnight rending pulse ox was completed and pt had many desaturation events. Pt requires 2LPM of O2 overnight. SW sent referral to [facility] via [facility]. SW spoke with pt to update and informed pt to call [facility] once she is home for O2 delivery. Pt expressed understanding. Dinorah Morelos MAINTENANCE TECH PUBLIC AID ELIGIBILITY ASSISTANT
[2025-01-03 04:43] VITALS: BMI 35.7
[2025-01-03 06:48] VITALS: RESP 16; O2SAT 94
--- NOTE | 2025-01-03 08:38 | CASEMGMT ---
Social Work notified this worker that pt is [facility]. SW spoke with pt to verify, as pt previously voiced she had a rollator at home. Pt clarified that she was borrowing that from a friend and would like her own. SW can coordinate. Informed pt of $60 copay and it would be delivered to pt's home. pt agreed to pay and expressed understanding and appreciation. JAC sent referral to [employer] via [employer]. VM left with [employer] liaison to notify. Dinorah SCHOFIELDW
[2025-01-03] MEDS: amLODIPine 5 MG Tablet PO (09:52)
[2025-01-03] MEDS: Nystatin Powder 15gm Bottle 1 APPLIC TOPICAL (09:53)
[2025-01-03 09:55] VITALS: BP 119/64; PULSE 79
[2025-01-03 15:48] VITALS: BP 140/77; PULSE 74; RESP 18; TEMP 36.3; O2SAT 92
== END 2025-01-03 14:40 | disposition home health service (06) | DRG 193 ==
PROVIDERS: Admitting Provider Family Medicine Geriatric Medicine; PCP Internal Medicine; Visit Provider Family Medicine Geriatric Medicine
DX: J18.9 Pneumonia, unspecified organism (principal); J96.01 Acute respiratory failure with hypoxia; N39.0 Urinary tract infection, site not specified; I10 Essential (primary) hypertension; E78.5 Hyperlipidemia, unspecified; L40.0 Psoriasis vulgaris; G47.33 Obstructive sleep apnea (adult) (pediatric); B35.4 Tinea corporis; Z79.899 Other long term (current) drug therapy; G47.00 Insomnia, unspecified
CPT/HCPCS: 36415; 80048; 85025; 87811; 94640; 94762; 97110; 97112; 97116; 97162; 97166; 97530; 97535; 97802; A4216

== ENCOUNTER → 2025-01-17 | Outpatient (CLI) | payer MEDICARE, BC, MEDICAID, SELFPAY ==
[2025-01-17 17:39] LABS: Absolute Lymphocyte Count 1.77 X10^3/uL (0.83-4.51); Absolute Neutrophil Count 3.2 X10^3/uL (2.0-7.7); Basophil# 0.06 X10^3/uL; Eosinophil# 0.37 X10^3/uL; Eosinophils% 6.2 % (0-5); Hematocrit 44.5 % (37-47); Hemoglobin 14.2 g/dL (12.0-15.0); Lymphocyte # 1.77 X10^3/ul (0.83-4.51); Lymphocyte % 29.5 % (19-41); Mean Corp Hgb Conc 31.9 g/dL (32-36); Mean Corpuscular Hgb 29.5 pg (27.0-32.0); Mean Corpuscular Volume 92.5 fL (81-99); Monocyte# 0.63 X10^3/uL; Monocyte% 10.5 % (0-10); NRBC Flagged by Analyzer 0 % (0-5); Neutrophil # 3.15 X10^3/uL (2.7-7.7); Neutrophil % 52.5 % (47-70); Platelet Count 198 K/mm3 (150-450); RBC Distribution Width CV 16.1 % (11.6-14.6); RBC Distribution Width SD 54.2 fl (35.1-43.9); Red Blood Count 4.81 M/mm3 (4.2-5.4)
[2025-01-17 18:39] LABS: Hepatitis C Antibody Nonreactive (Nonreactive)
[2025-01-17 18:43] LABS: ALB/GLOB Ratio 1.2 RATIO (0.9-2.4); AST(SGOT) 18 U/L (<=31); Alanine Aminotransfer ALT/SGPT 8 U/L (<=34); Albumin, Serum 4.2 g/dL (3.4-4.8); Alkaline Phosphatase 91 U/L (35-104); Anion Gap 13 (5-15); BUN 20 mg/dL (4-19); BUN/Creat Ratio 19.9 RATIO (10-20); Calcium,Total 9.6 mg/dL (7.6-11.0); Carbon Dioxide 22.8 mmol/L (21.0-32.0); Chloride 104 mmol/L (98-108); Cholesterol 251 mg/dL (<=200); EST Glomerular Filtration Rate 56 (>60); Globulin 3.4 g/dL (2.2-4.2); Glucose 96 mg/dL (70-99); High Density Lipoprotein 70 mg/dL; Low Density Lipoprotein Calc. 157 mg/dL; Potassium 4.5 mmol/L (3.3-5.1); Protein, Total 7.6 g/dL (5.9-8.4); Sodium Level 139 mmol/L (133-145); Total Bilirubin 0.45 mg/dL (0.00-1.30); Triglycerides 122 mg/dL; Very Low Density Lipoprotein 24 mg/dL (5-40)
[2025-01-17 18:54] LABS: Vitamin D,25 Hydroxy 24.4 ng/mL (30-100)
== END | disposition home or self-care (01) ==
LOC: POLAB3 16:48
PROVIDERS: PCP Internal Medicine; Visit Provider Family Medicine Geriatric Medicine
DX: I10 Essential (primary) hypertension (principal); E78.5 Hyperlipidemia, unspecified; E55.9 Vitamin D deficiency, unspecified; Z13.29 Encounter for screening for other suspected endocrine disorder
CPT/HCPCS: 36415; 80053; 80061; 82306; 84443; 85025; 86803

== ENCOUNTER → 2025-01-26 | Outpatient (CLI) | payer MEDICARE, BC, MEDICAID, SELFPAY | END | disposition home or self-care (01) | LOC: PSN 06:47 | PROVIDERS: PCP Family Medicine Geriatric Medicine; Referring Provider Family Medicine Geriatric Medicine; Visit Provider Family Medicine Geriatric Medicine | DX: G47.33 Obstructive sleep apnea (adult) (pediatric) (principal); R06.02 Shortness of breath | CPT/HCPCS: 94060 ==

== ENCOUNTER → 2025-01-31 | Outpatient (CLI) | payer MEDICARE, BC, MEDICAID, SELFPAY | END | disposition home or self-care (01) | LOC: SL 19:52 | PROVIDERS: PCP Family Medicine Geriatric Medicine; Visit Provider Family Medicine Geriatric Medicine | DX: G47.33 Obstructive sleep apnea (adult) (pediatric) (principal); R06.02 Shortness of breath | CPT/HCPCS: 95810 ==

== ENCOUNTER 2025-02-02 17:23 | Inpatient (IN) | payer MEDICARE, BC, MEDICAID, SELFPAY ==
--- NOTE | 2025-02-02 00:35 | RAD_ITS ---
PROCEDURE: ABDOMEN SINGLE VIEW (PORTABLE) 02/03/2025 REASON FOR EXAM: 84-year-old female, NG PLACEMENT TECHNIQUE: Single view abdomen. COMPARISON: CT abdomen pelvis 1 day prior. Abdominal radiograph 12/12/2024. FINDINGS: Bowel gas: The visualized upper bowel loops are dilated. Interval gastric tube placement with side hole and tip overlying the stomach. Calcifications: No suspicious calcifications. Partially visualized aorto bi- iliac stent grafting. Bones: There are degenerative changes of the spine. RAD/Abdomen Single View (Portable) IMPRESSION: Gastric tube placement as described. Reading Location: [id number]
[2025-02-02 17:25] VITALS: BP 127/68; PULSE 85; RESP 18; TEMP 36.5; O2SAT 94
--- NOTE | 2025-02-02 18:11 | CT_ITS ---
PROCEDURE: ABDOMEN/PELVIS W IV CONT ONLY 02/02/2025 REASON FOR EXAM: 84-year-old female, epigastric and left upper quadrant abdominal pain, nausea and vomiting. History of uterine cancer. TECHNIQUE: Abdomen and pelvis CT with intravenous contrast. Coronal and Sagittal reconstruction series were provided. PATIENT PREPARATION: Per protocol ORAL CONTRAST TYPE: None. CONTRAST: Isovue-300 VOLUME: 100mL One or more dose reduction techniques were used (e.g., Automated exposure control, adjustment of the mA and/or kV according to patient size, use of iterative reconstruction technique. RADIATION DOSE SUMMARY: CTDlvol: 23 mGy DLP: 1000 mGycm COMPARISON: CT abdomen pelvis 07/30/2023. FINDINGS: Lung bases: Cardiomegaly with coronary artery and thoracic aortic calcifications. Partially visualized focal area of tree-in-bud opacities within the right lower lobe. Bibasilar atelectasis/scarring. Liver: The liver is normal in size without focal hepatic mass. The major portal veins are patent. Minimal biliary ductal dilation. Gallbladder: Several calcified radiopaque stones within the gallbladder, unchanged since prior examination. Spleen: Unremarkable. Pancreas: Unremarkable. Adrenals: Unremarkable. Kidneys: No hydronephrosis or nephrolithiasis. Bladder: Mildly distended with tiny hyperdensity within the bladder dome, measuring average Hounsfield units of 63. Reproductive Organs: Prior hysterectomy. Bowel: Patulous dilation of the lower esophagus. There is marked dilation of the small bowel just distal to the 3rd portion of the duodenum, with the transition point to normal caliber small bowel within the right lower pelvis (series 2, image 92) just inferior to the bifurcation of the internal and external right iliac artery. Severe distal colonic diverticulosis. No ascites or pneumoperitoneum. Normal appendix. Lymph nodes: No lymphadenopathy. Vasculature: Prior aorto-biiliac graft. Bones/soft tissues: Unchanged soft tissue nodule along the left upper medial breast (series 2, image for, unchanged in size since at least 2021. Increased conspicuity of an additional right lower outer nodule (series 2, image 4). Thoracolumbar spondylosis. CT/Abdomen/Pelvis W IV Cont ONLY IMPRESSION: 1. Small-bowel obstruction with transition point within the right lower quadran t as described. 2. Severe distal colonic diverticulosis. 3. Partially visualized focal area of tree-in-bud opacities within the right lo wer lobe, compatible with infectious/inflammatory etiology such as aspiration pneumonitis. 4. Stable left breast soft tissue nodule and increased size of a right breast s oft tissue nodule since 2021. Diagnostic mammogram is recommended when clinically able for further evaluation. Dr. Mccord discussed these findings with Dr. Szymanski via telephone at 7:50 p.m . on 02/02/2025. Reading Location: [id number]
--- NOTE | 2025-02-02 18:13 | EDS_ITS ---
HPI <Shawna Simons RN - Last Filed: 02/02/25 20:00> History of Present Illness Chief Complaint: Nausea/Vomiting Informant: patient and family Onset/Context/Timing Onset: Today and Hours (9) Context: Sudden Onset Timing: Intermittent Quality: Cramping Location: Epigastric, left upper quadrant Current Severity: 6/10 Worsened by: Nothing Relieved by: Vomiting Associated Symptoms Associated Symptoms: Four loose bowel movements this morning. Denies melena. Narrative Narrative: Patient is an 84-year-old female with past medical history significant for hypertension, hiatal hernia repair, colitis who presents to the ER with her daughter after sudden onset of epigastric/left upper quadrant pain and vomiting beginning at approximately 9 AM today. Patient describes pain as cramping and relieved with vomiting. Also reports for the loose bowel movements this morning. Denies melena. Patient denies fever. Does report chills today. Denies sick contacts. She has been attempting to drink water and cheikh sherita today. However she does vomit shortly after. Patient reports hiatal hernia repair with mesh in 2022. She also had endograft repair of an abdominal aneu rysm years ago. Patient denies urinary frequency, dysuria, hematuria. Recent Illness/Hospitalization: No PFSH <Shawna Simons RN - Last Filed: 02/02/25 20:00> PFSH Medical History Cancer AAA (abdominal aortic aneurysm) Community acquired pneumonia Malaise and fatigue Pulmonary infiltrate Cough Eye abnormalities History of hypertension Obesity History of abdominal aortic aneurysm (AAA) Hyperlipidemia Venous insufficiency of both lower extremities Intertriginous dermatitis associated with moisture Urinary incontinence, mixed Bilateral lower extremity edema History of skin cancer History of COVID-19 History of uterine cancer Hypertension Home Medications ?Medication ?Instructions ?Recorded ?Last Taken ?Type amlodipine 5 mg tablet 5 mg PO DAILY BP #90 TABLETS 04/11/24 02/01/25 Rx albuterol sulfate 90 mcg/actuation 2 puff inhalation Q 4H PRN 02/02/25 Unknown History aerosol inhaler shortness of breath or wheez ing levothyroxine 25 mcg tablet 25 mcg PO DAILY 02/02/25 U nknown History Held on 02/02/25. Instructions: SIDE EFFECTS nystatin 100,000 unit/gram topical 1 applic topical TI D PRN skin 02/02/25 Unknown History powder (Nystop) irritation triamcinolone acetonide 0.1 % 1 applic topical TID PRN skin 02/02/25 Unknown History topical ointment irritation Allergy/AdvReac Type Severity Reaction Status Date / Time rosuvastatin (From Crestor) Allergy Severe stomach Verified 02/02/25 17:25 pains shellfish derived Allergy Severe MOUTH SORES Verified 02/02/25 17:25 sulfamethoxazole (From Allergy Unknown unknown Verified 02/02/25 17:25 Bactrim) trimethoprim (From Bactrim) Allergy Unknown unknown Verified 02/02/25 17:25 Family History Son Alcoholism Grandmother No problems noted. Mother Heart disease Hypertension CVA (cerebral vascular accident) Father Cancer throat Surgical History History of recent surgery History of hernia repair Hx of endovascular stent graft for abdominal aortic aneurysm History of hysterectomy Social History household members: none Smoking Status: Never smoker alcohol intake: never substance use type: does not use what type of physical activity do you participate in: walking and aerobics ROS <Shawna Simons RN - Last Filed: 02/02/25 20:00> ROS ED ROS Narrative Patient reports dizziness with standing. Denies recent weight loss. Does report fatigue. Constitutional Constitutional ED: Reports chills; Denies fever(s), sweats or weight loss Eyes Eyes: Denies blurry vision or change in vision ENT ENT ED: Denies ear pain, rhinorrhea or sore throat Cardiovascular Cardiovascular: Denies chest pain or palpitations Respiratory/Chest Respiratory/Chest: Denies cough, dyspnea or dyspnea on exertion Gastrointestinal Gastrointestinal: Reports abdominal pain, nausea, vomiting and other Details: Epigastric and left upper quadrant pain ; Denies constipation, diarrhea or melena Genitourinary Genitourinary ED: Denies dysuria, hematuria or urinary frequency Musculoskeletal Musculoskeletal: Denies arthralgias, back pain or myalgias Neurologic Neurologic: Denies headache(s), paresthesias or weakness Psychiatric Psychiatric: Denies anxiety or depression Endocrine Endocrinology: Denies polydipsia, polyphagia or polyuria Hematologic/Lymphatic Hematologic/Lymphatic: Denies none EXAM <Shawna Simons RN - Last Filed: 02/02/25 20:00> Physical Exam Narrative Exam Narrative: Patient is laying in bed, awake and alert. Daughter is at bedside. Patient is ill-appearing. No acute distress noted. Patient is cooperative with exam and good historian. Const Vital Signs: 02/02/25 17:25 02/02/25 19:23 Temperature 97.7 F L Temperature Source Oral Pulse Rate 85 72 Respiratory Rate 18 16 Blood Pressure 127/68 H 114/67 Blood Pressure Mean 87 82 Pulse Ox 94 99 Oxygen Delivery Method Room Air Room Air Positive well developed General Appearance ED: well developed and NAD HEENT Reports moist mucous membranes Eyes PERRL and EOMs intact bilaterally Neck no lymphadenopathy, supple and no JVD Chest Wall inspection of chest normal and palpation of chest normal Resp normal respiratory effort and clear to auscultation bilaterally Auscultation: Negative for rales, rhonchi or wheezes Cardio regular rate, regular rhythm, S1 normal heart sound, S2 normal heart sound and no murmurs GI Inspection: Negative for abdominal distention Auscultation: normoactive bowel sounds Palpation: soft and tender LUQ Back/Spine no CVA tenderness Extremity Extremity Narrative: Mild bilateral lower extremity edema General Extremety ED: Yes edema General Extremity: edema Neuro oriented x3, CN's II-XII intact bilaterally and no sensory deficits noted Sensorium / Orientation: alert Motor Exam: strength 5/5 throughout Psych mental status grossly normal Skin no rashes or lesions noted and no wounds <Dr. Neil Szymanski MD - Last Filed: 02/02/25 23:56> Physical Exam Const Vital Signs: 02/02/25 17:25 02/02/25 19:23 Temperature 97.7 F L Temperature Source Oral Pulse Rate 85 72 Respiratory Rate 18 16 Blood Pressure 127/68 H 114/67 Blood Pressure Mean 87 82 Pulse Ox 94 99 Oxygen Delivery Method Room Air Room Air MDM <Shawna Simons RN - Last Filed: 02/02/25 20:00> [facility] Narrative Medical decision making narrative: IV initiated. Labs drawn and sent. Will check CBC, CMP, and lipase. CT abdomen and pelvis with IV contrast is ordered to rule out colonic obstruction, colitis, diverticulitis. Patient offered morphine for abdominal pain and declined. Patient offered ondansetron for vomiting and declined. Instructed patient to notify staff if she desires morphine and/or Zofran. Patient to be administered 1 L normal saline. I have personally performed a face to face assessment of the patient and have reviewed the SILAS Note. I performed a substantive portion of the visit including all aspects of the following. My morales findings include: History is [84-year-old female prior abdominal surgery. Still has her gallbladder and her appendix. Since this morning has had nausea vomiting and loose stools. And epigastric and left upper quadrant abdominal pain. Denies fever. No dysuria.] Exam is [well-appearing 84-year-old female. Vital signs are stable afebrile. H EENT exam pupils round react light. Moist mucous membranes. Neck nontender no lymphadenopathy. Lungs clear to auscultation bilaterally. Heart regular rhythm rate about 85 no murmur. Chest wall and ribs nontender. Abdomen soft nondistended normal bowel sounds without peritoneal signs. She has epigastric and left upper quadrant tenderness. No pulsatile mass. No distention or obstruction. Both the right upper and right lower quadrants are nontender. No Shelby sign or McBurney's point tenderness. No hernias or mass. Moving all 4 extremities. Nontender no edema. Normal strength. Back nontender. Neurologically she is awake and alert no focal motor deficits.] Medical Decision Making [84-year-old female with nausea vomiting loose stools may be viral gastroenteritis versus pancreatitis versus obstruction or other etiologies. CAT scan labs are being obtained. Initially will give her morphine for pain but she declined and did not waiting for nausea either.] Other additions or changes: [None] Lab Data Labs: Laboratory Results - last 24 hr 02/02/25 02/02/25 02/02/25 17:44 17:44 18:07 WBC Cancelled 9.0 Corrected WBC Cancelled RBC Cancelled 4.73 Hgb Cancelled 13.9 Hct Cancelled 42.7 MCV Cancelled 90.3 MCH Cancelled 29.4 MCHC Cancelled 32.6 RDW Std Deviation Cancelled 53.0 H RDW Coeff of Toribio Cancelled 16.2 H Plt Count Cancelled 204 MPV Cancelled 9.0 Immature Gran % (Auto) Cancelled 0.300 Neut % (Auto) Cancelled 84.9 H Lymph % (Auto) Cancelled 7.8 L [place] % (Auto) Cancelled 6.5 Eos % (Auto) Cancelled 0.1 Baso % (Auto) Cancelled 0.4 Absolute Neuts (auto) Cancelled 7.6 Absolute Lymphs (auto) Cancelled 0.70 L Total Counted Cancelled Neutrophils % (Manual) Cancelled Band Neutrophils % Cancelled Lymphocytes % (Manual) Cancelled Monocytes % (Manual) Cancelled Eosinophils % (Manual) Cancelled Basophils % (Manual) Cancelled Metamyelocytes % Cancelled Myelocytes % Cancelled Promyelocytes % Cancelled Blast Cells % Cancelled Plasma Cell % (Manual) Cancelled Other Cells % Cancelled Nucleated RBC % Cancelled 0 Nucleated RBCs/100 WBC Cancelled Differential Comment Cancelled Diff Path Review Cancelled Hypersegmented Neuts Cancelled Atypical Lymphocytes Cancelled Reactive Lymphocytes Cancelled Smudge Cells Cancelled Toxic Granulation Cancelled Toxic Vacuolation Cancelled Dohle Bodies Cancelled Margaux Rods Cancelled Platelet Estimate Cancelled Plt Morphology Comment Cancelled RBC Morphology Cancelled Cancelled Polychromasia Cancelled Hypochromasia Cancelled Basophilic Stippling Cancelled Anisocytosis Cancelled Microcytosis Cancelled Macrocytosis Cancelled Spherocytes Cancelled Sickle Cells Cancelled Target Cells Cancelled Tear Drop Cells Cancelled Ovalocytes Cancelled Stomatocytes Cancelled [place] Bodies Cancelled [place] Cells Cancelled Bite Cells Cancelled Crenated Cell Cancelled Acanthocytes (Spur) Cancelled Rouleaux Cancelled Schistocytes Cancelled Sodium 139 Potassium 4.5 Chloride 102 Carbon Dioxide 20.2 L Anion Gap 17 H BUN 13 Creatinine 1.09 Est GFR (MDRD) Non-Af 51 L BUN/Creatinine Ratio 12.1 Glucose 134 H Calcium 9.8 Magnesium 2.0 Total Bilirubin 0.69 AST 25 ALT 8 Alkaline Phosphatase 110 H Total Protein 7.5 Albumin 3.9 Globulin 3.6 Albumin/Globulin Ratio 1.1 Lipase 24 TSH 3.310 Radiography Diagnostic Testing: Clinical Impression(s) from Imaging Studies Abdomen/Pelvis CT 02/02/25 18:11 IMPRESSION: 1. Small-bowel obstruction with transition point within the right lower quadrant as described. 2. Severe distal colonic diverticulosis. 3. Partially visualized focal area of tree-in-bud opacities within the right lower lobe, compatible with infectious/inflammatory etiology such as aspiration pneumonitis. 4. Stable left breast soft tissue nodule and increased size of a right breast soft tissue nodule since 2021. Diagnostic mammogram is recommended when clinically able for further evaluation. Dr. Mccord discussed these findings with Dr. Szymanski via telephone at 7:50 p.m. on 02/02/2025. Reading Location: [facility] Differential Diagnosis Abdominal Pain: Bowel obstruction Differential Diagnosis: Viral gastritis Differential Diagnosis: Diverticulitis Management Discussion w/another healthcare provider: Other (Dr. Szymanski, ED provider) Treatment and Re-Evaluation :: Upon reevaluation, patient remains laying in bed with daughter at bedside. Reports abdominal pain has resolved. However she is nauseous with dry heaves. She is was agreeable to ondansetron which provided relief of symptoms. Vitals have remained stable. Review of lab work shows a normal white count of 9, hemoglobin 13.9 with 42.7 hematocrit, platelets are 204. BMP shows a normal sodium of 139, potassium 4.5, chloride 102, CO2 is 20.2, BUN 13 and creatinine 1.09, glucose 134. Liver panel is normal with the exception of a slightly elevated alk phos of 110. Lipase is normal at 24. CT abdomen pelvis shows a small bowel obstruction. Dr. Sousa with general surgery consulted. Hospitalist consulted for admission. Patient aware of lab results and CT scan and agreeable with admission. <Dr. Neil Szymanski MD - Last Filed: 02/02/25 23:56> [facility] Narrative Medical decision making narrative: I have personally performed a face to face assessment of the patient and have reviewed the SILAS Note. I performed a substantive portion of the visit including all aspects of the following. My morales findings include: History is [84-year-old female prior abdominal surgery. Still has her gallbladder and her appendix. Since this morning has had nausea vomiting and loose stools. And epigastric and left upper quadrant abdominal pain. Denies fever. No dysuria.] Exam is [well-appearing 84-year-old female. Vital signs are stable afebrile. H EENT exam pupils round react light. Moist mucous membranes. Neck nontender no lymphadenopathy. Lungs clear to auscultation bilaterally. Heart regular rhythm rate about 85 no murmur. Chest wall and ribs nontender. Abdomen soft nondistended normal bowel sounds without peritoneal signs. She has epigastric and left upper quadrant tenderness. No pulsatile mass. No distention or obstruction. Both the right upper and right lower quadrants are nontender. No Shelby sign or McBurney's point tenderness. No hernias or mass. Moving all 4 extremities. Nontender no edema. Normal strength. Back nontender. Neurologically she is awake and alert no focal motor deficits.] Medical Decision Making [84-year-old female with nausea vomiting loose stools may be viral gastroenteritis versus pancreatitis versus obstruction or other etiologies. CAT scan labs are being obtained. Initially will give her morphine for pain but she declined and did not waiting for nausea either.] Other additions or changes: [None] History & Record Review Discussion w/independent historian: Patient and Family Additional record(s) reviewed:: Prior outpatient record, Prior ED visit and Prior labs Lab Data Attestation: I reviewed the patient's lab results. Labs: Laboratory Results - last 24 hr 02/02/25 02/02/25 02/02/25 17:44 17:44 18:07 WBC Cancelled 9.0 Corrected WBC Cancelled RBC Cancelled 4.73 Hgb Cancelled 13.9 Hct Cancelled 42.7 MCV Cancelled 90.3 MCH Cancelled 29.4 MCHC Cancelled 32.6 RDW Std Deviation Cancelled 53.0 H RDW Coeff of Toribio Cancelled 16.2 H Plt Count Cancelled 204 MPV Cancelled 9.0 Immature Gran % (Auto) Cancelled 0.300 Neut % (Auto) Cancelled 84.9 H Lymph % (Auto) Cancelled 7.8 L [place] % (Auto) Cancelled 6.5 Eos % (Auto) Cancelled 0.1 Baso % (Auto) Cancelled 0.4 Absolute Neuts (auto) Cancelled 7.6 Absolute Lymphs (auto) Cancelled 0.70 L Total Counted Cancelled Neutrophils % (Manual) Cancelled Band Neutrophils % Cancelled Lymphocytes % (Manual) Cancelled Monocytes % (Manual) Cancelled Eosinophils % (Manual) Cancelled Basophils % (Manual) Cancelled Metamyelocytes % Cancelled Myelocytes % Cancelled Promyelocytes % Cancelled Blast Cells % Cancelled Plasma Cell % (Manual) Cancelled Other Cells % Cancelled Nucleated RBC % Cancelled 0 Nucleated RBCs/100 WBC Cancelled Differential Comment Cancelled Diff Path Review Cancelled Hypersegmented Neuts Cancelled Atypical Lymphocytes Cancelled Reactive Lymphocytes Cancelled Smudge Cells Cancelled Toxic Granulation Cancelled Toxic Vacuolation Cancelled Dohle Bodies Cancelled Margaux Rods Cancelled Platelet Estimate Cancelled Plt Morphology Comment Cancelled RBC Morphology Cancelled Cancelled Polychromasia Cancelled Hypochromasia Cancelled Basophilic Stippling Cancelled Anisocytosis Cancelled Microcytosis Cancelled Macrocytosis Cancelled Spherocytes Cancelled Sickle Cells Cancelled Target Cells Cancelled Tear Drop Cells Cancelled Ovalocytes Cancelled Stomatocytes Cancelled [place] Bodies Cancelled [place] Cells Cancelled Bite Cells Cancelled Crenated Cell Cancelled Acanthocytes (Spur) Cancelled Rouleaux Cancelled Schistocytes Cancelled Sodium 139 Potassium 4.5 Chloride 102 Carbon Dioxide 20.2 L Anion Gap 17 H BUN 13 Creatinine 1.09 Est GFR (MDRD) Non-Af 51 L BUN/Creatinine Ratio 12.1 Glucose 134 H Calcium 9.8 Magnesium 2.0 Total Bilirubin 0.69 AST 25 ALT 8 Alkaline Phosphatase 110 H Total Protein 7.5 Albumin 3.9 Globulin 3.6 Albumin/Globulin Ratio 1.1 Lipase 24 TSH 3.310 Radiography Diagnostic Testing: Clinical Impression(s) from Imaging Studies Abdomen/Pelvis CT 02/02/25 18:11 IMPRESSION: 1. Small-bowel obstruction with transition point within the right lower quadrant as described. 2. Severe distal colonic diverticulosis. 3. Partially visualized focal area of tree-in-bud opacities within the right lower lobe, compatible with infectious/inflammatory etiology such as aspiration pneumonitis. 4. Stable left breast soft tissue nodule and increased size of a right breast soft tissue nodule since 2021. Diagnostic mammogram is recommended when clinically able for further evaluation. Dr. Mccord discussed these findings with Dr. Szymanski via telephone at 7:50 p.m. on 02/02/2025. Reading Location: [id number] Discharge Plan Dx/Rx/DC Orders Clinical Impression: Abdominal pain, Nausea & vomiting, Small bowel obstruction Disposition Disposition: Acute Care Hospital [facility] Discharge Date/Time: 02/02/25 21:40
[2025-02-02 18:15] LABS: Lipase 24 U/L (13-75)
[2025-02-02 18:21] LABS: Absolute Neutrophil Count 7.6 X10^3/uL (2.0-7.7); Basophil# 0.04 X10^3/uL; Basophil% 0.4 % (0-1); Eosinophil# 0.01 X10^3/uL; Eosinophils% 0.1 % (0-5); Hematocrit 42.7 % (37-47); Hemoglobin 13.9 g/dL (12.0-15.0); Lymphocyte % 7.8 % (19-41); Mean Corp Hgb Conc 32.6 g/dL (32-36); Mean Corpuscular Hgb 29.4 pg (27.0-32.0); Mean Corpuscular Volume 90.3 fL (81-99); Monocyte# 0.59 X10^3/uL; Monocyte% 6.5 % (0-10); NRBC Flagged by Analyzer 0 % (0-5); Neutrophil # 7.64 X10^3/uL (2.7-7.7); Neutrophil % 84.9 % (47-70); Platelet Count 204 K/mm3 (150-450); RBC Distribution Width CV 16.2 % (11.6-14.6); Red Blood Count 4.73 M/mm3 (4.2-5.4)
[2025-02-02] MEDS: 0.9% Normal Saline (1000mL) 1,000 ML 999 ML IV (18:23)
[2025-02-02 18:35] LABS: ALB/GLOB Ratio 1.1 RATIO (0.9-2.4); AST(SGOT) 25 U/L (<=31); Alanine Aminotransfer ALT/SGPT 8 U/L (<=34); Albumin, Serum 3.9 g/dL (3.4-4.8); Alkaline Phosphatase 110 U/L (35-104); Anion Gap 17 (5-15); BUN 13 mg/dL (4-19); BUN/Creat Ratio 12.1 RATIO (10-20); Calcium,Total 9.8 mg/dL (7.6-11.0); Carbon Dioxide 20.2 mmol/L (21.0-32.0); Chloride 102 mmol/L (98-108); Creatinine, Serum 1.09 mg/dL (0.70-1.20); EST Glomerular Filtration Rate 51 (>60); Globulin 3.6 g/dL (2.2-4.2); Glucose 134 mg/dL (70-99); Potassium 4.5 mmol/L (3.3-5.1); Protein, Total 7.5 g/dL (5.9-8.4); Sodium Level 139 mmol/L (133-145); Total Bilirubin 0.69 mg/dL (0.00-1.30)
[2025-02-02] MEDS: Ondansetron 4 MG/2 ML Vial IV ×2 (19:21→23:10)
[2025-02-02 19:23] VITALS: BP 114/67; PULSE 72; RESP 16; O2SAT 99
--- NOTE | 2025-02-02 20:39 | PCM.HP.STD ---
[facility] - General General Date of Admission: 02/02/25 Date of Service: 02/02/25 Chief Complaint: Abdominal Pain, Nausea and Vomiting. HPI Narrative ELA JOHNSON, is a 84 F with a past medical history of essential hypertension; on amlodipine, hyperlipidemia; with intolerance to rosuvastatin, hypothyroidism; on levothyroxine, history of AAA; s/p bi-iliac aortic stent graft, history of hernia; s/p mesh repair x 2 (), history of uterine cancer; s/p radiation and hysterectomy (2009), history of skin cancer, history of COVID-19, history of bilateral LE venous stasis dermatitis and OA who presents to [facility] ER complaining of abdominal pain, nausea and vomiting. Ms. Johnson reports her symptoms began approximately 9:00 AM with the abrupt-onset of abdominal pain that was primarily focused in her epigastrium and LUQ, ~6/10, cramping and intermittent with nothing seeming to make the pain worse - but she did note it was slightly improved after vomiting. She then developed nausea with multiple episodes of bilious emesis in addition to noting fatigue and dizziness with standing. She admits to loose stool this morning but denies blood in stools or vomitus. She tried to drink water and cheikh sherita but when these did not help relieve her symptoms after she vomited them up, she decided to come in for further evaluation and treatment. She denies associated fever, chills, chest pain, SOB, headache, paresthesias or focal neurologic deficits. In the ER she was noted to have CT evidence of SBO; with transition point in the RLQ with severe distal colonic diverticulosis along with partially-visualized focal area of tree-in-bud opacities in the RLL compatible with suspected Aspiration Pneumonia in addition to stable Left breast soft tissue nodule and increased size of Right breast nodule since 2021 with diagnostic mammogram recommended. The ER physician then spoke to the general surgeon stone carver who recommended patient be admitted to the hospitalist service and he will consult in the AM which was done. She was then admitted to the general medical floor for ongoing care for a stay that is expected to extend beyond 2 midnights. [facility] Medical History Cancer AAA (abdominal aortic aneurysm) Community acquired pneumonia Malaise and fatigue Pulmonary infiltrate Cough Eye abnormalities History of hypertension Obesity History of abdominal aortic aneurysm (AAA) Hyperlipidemia Venous insufficiency of both lower extremities Intertriginous dermatitis associated with moisture Urinary incontinence, mixed Bilateral lower extremity edema History of skin cancer History of COVID-19 History of uterine cancer Hypertension Home Medications ?Medication ?Instructions ?Recorded ?Last Taken ?Type amlodipine 5 mg tablet 5 mg PO DAILY BP #90 TABLETS 04/11/24 02/01/25 Rx albuterol sulfate 90 mcg/actuation 2 puff inhalation Q4H PRN 02/02/25 Unknown History aerosol inhaler shortness of breath or wheezing levothyroxine 25 mcg tablet 25 mcg PO DAILY 02/02/25 Unknown History Held on 02/02/25. Instructions: SIDE EFFECTS nystatin 100,000 unit/gram topical 1 applic topical TID PRN skin 02/02/25 Unknown History powder (Nystop) irritation triamcinolone acetonide 0.1 % 1 applic topical TID PRN skin 02/02/25 Unknown History topical ointment irritation Allergy/AdvReac Type Severity Reaction Status Date / Time rosuvastatin (From Crestor) Allergy Severe stomach Verified 02/02/25 17:25 pains shellfish derived Allergy Severe MOUTH SORES Verified 02/02/25 17:25 sulfamethoxazole (From Allergy Unknown unknown Verified 02/02/25 17:25 Bactrim) trimethoprim (From Bactrim) Allergy Unknown unknown Verified 02/02/25 17:25 Family History Son Alcoholism Grandmother No problems noted. Mother Heart disease Hypertension CVA (cerebral vascular accident) Father Cancer throat Surgical History History of recent surgery History of hernia repair Hx of endovascular stent graft for abdominal aortic aneurysm History of hysterectomy Social History household members: none Smoking Status: Never smoker alcohol intake: never substance use type: does not use what type of physical activity do you participate in: walking and aerobics ROS ROS Narrative Review of Systems: Constitutional: Patient admits to fatigue and dizziness with standing but she denies fever or chills. Eyes: Patient denies changes in vision or discharge from eyes. ENT: Patient denies runny nose, sore throat or ear pain. Resp: Patient denies SOB or cough. CV: Patient denies chest pain, palpitations or heart racing. GI: Patient admits to nausea, vomiting with bilious emesis and loose stools this AM with epigastric and LUQ abdominal pain as per HPI. : Patient denies dysuria or hematuria. MSK: Patient admits to fatigue with generalized weakness but she denies arthralgias or myalgias. Skin: Patient admits to candidal rash in skin folds. Psych: Patient denies symptoms of uncontrolled depression or anxiety. Neuro: Patient denies headache, paresthesias or focal neurologic deficits. Allergy: Patient denies lip swelling, tongue swelling or urticaria. Hematology: Patient denies easy bleeding or easy bruisability. Endocrinology: Patient denies polyuria, polydipsia, polyphagia or heat/cold intolerance. 14 point ROS otherwise negative except for positives noted above in HPI. Vital Signs Vital Signs Vital Signs: 02/02/25 17:25 02/02/25 19:23 Temperature 97.7 F L Temperature Source Oral Pulse Rate 85 72 Respiratory Rate 18 16 Blood Pressure 127/68 H 114/67 Blood Pressure Mean 87 82 Pulse Ox 94 99 Oxygen Delivery Method Room Air Room Air Physical Exam Const alert and oriented x3 Constitutional Narrative: Patient appears acutely ill. General Appearance: cooperative HEENT normocephalic, head/scalp atraumatic, hearing grossly normal bilaterally and moist oral mucous membranes Eyes PERRL, EOMs intact bilaterally and conjunctivae normal Neck no lymphadenopathy, supple and no JVD Resp Resp Narrative: Diminished breath sounds over RLL. Cardio regular rate and regular rhythm GI normal to inspection, nondistended, normoactive bowel sounds and soft to palpation GI Narrative: Patient tender in epigastrium and LUQ. Extremity Extremity Narrative: Mild ~1+ bilateral LE edema that is chronic in appearance. Skin Skin Narrative: Mild ~1+ bilateral LE edema that is chronic in appearance. Neuro oriented x3, CN's II-XII intact bilaterally, moves all extremities and no focal motor deficits Sensorium / Orientation: awake, alert, oriented to person, oriented to place and oriented to time Speech: speech normal Psych affect normal Results Medical Records Data Attestation: I reviewed the patient's medical records Lab / Micro Data Attestation: I reviewed the patient's lab results. 02/02/25 18:07 02/02/25 17:44 Labs: Laboratory Results - last 24 hr 02/02/25 17:44: WBC Cancelled, Corrected WBC Cancelled, RBC Cancelled, Hgb Cancelled, Hct Cancelled, MCV Cancelled, MCH Cancelled, MCHC Cancelled, RDW Std Deviation Cancelled, RDW Coeff of Toribio Cancelled, Plt Count Cancelled, MPV Cancelled, Immature Gran % (Auto) Cancelled, Neut % (Auto) Cancelled, Lymph % (Auto) Cancelled, [place] % (Auto) Cancelled, Eos % (Auto) Cancelled, Baso % (Auto) Cancelled, Absolute Neuts (auto) Cancelled, Absolute Lymphs (auto) Cancelled, Total Counted Cancelled, Neutrophils % (Manual) Cancelled, Band Neutrophils % Cancelled, Lymphocytes % (Manual) Cancelled, Monocytes % (Manual) Cancelled, Eosinophils % (Manual) Cancelled, Basophils % (Manual) Cancelled, Metamyelocytes % Cancelled, Myelocytes % Cancelled, Promyelocytes % Cancelled, Blast Cells % Cancelled, Plasma Cell % (Manual) Cancelled, Other Cells % Cancelled, Nucleated RBC % Cancelled, Nucleated RBCs/100 WBC Cancelled, Differential Comment Cancelled, Diff Path Review Cancelled, Hypersegmented Neuts Cancelled, Atypical Lymphocytes Cancelled, Reactive Lymphocytes Cancelled, Smudge Cells Cancelled, Toxic Granulation Cancelled, Toxic Vacuolation Cancelled, Dohle Bodies Cancelled, Margaux Rods Cancelled, Platelet Estimate Cancelled, Plt Morphology Comment Cancelled, RBC Morphology Cancelled 02/02/25 17:44: RBC Morphology Cancelled, Polychromasia Cancelled, Hypochromasia Cancelled, Basophilic Stippling Cancelled, Anisocytosis Cancelled, Microcytosis Cancelled, Macrocytosis Cancelled, Spherocytes Cancelled, Sickle Cells Cancelled, Target Cells Cancelled, Tear Drop Cells Cancelled, Ovalocytes Cancelled, Stomatocytes Cancelled, Davis-[place] Bodies Cancelled, Stanton Cells Cancelled, Bite Cells Cancelled, Crenated Cell Cancelled, Acanthocytes (Spur) Cancelled, Rouleaux Cancelled, Schistocytes Cancelled, Sodium 139, Potassium 4.5, Chloride 102, Carbon Dioxide 20.2 L, Anion Gap 17 H, BUN 13, Creatinine 1.09, Est GFR (MDRD) Non-Af 51 L, BUN/Creatinine Ratio 12.1, Glucose 134 H, Calcium 9.8, Total Bilirubin 0.69, AST 25, ALT 8, Alkaline Phosphatase 110 H, Total Protein 7.5, Albumin 3.9, Globulin 3.6, Albumin/Globulin Ratio 1.1, Lipase 24 02/02/25 18:07: WBC 9.0, RBC 4.73, Hgb 13.9, Hct 42.7, MCV 90.3, MCH 29.4, MCHC 32.6, RDW Std Deviation 53.0 H, RDW Coeff of Toribio 16.2 H, Plt Count 204, MPV 9.0, Immature Gran % (Auto) 0.300, Neut % (Auto) 84.9 H, Lymph % (Auto) 7.8 L, [place] % (Auto) 6.5, Eos % (Auto) 0.1, Baso % (Auto) 0.4, Absolute Neuts (auto) 7.6, Absolute Lymphs (auto) 0.70 L, Nucleated RBC % 0 Imaging Radiology Impression Abdomen/Pelvis CT 02/02/25 18:11 IMPRESSION: 1. Small-bowel obstruction with transition point within the right lower quadrant as described. 2. Severe distal colonic diverticulosis. 3. Partially visualized focal area of tree-in-bud opacities within the right lower lobe, compatible with infectious/inflammatory etiology such as aspiration pneumonitis. 4. Stable left breast soft tissue nodule and increased size of a right breast soft tissue nodule since 2021. Diagnostic mammogram is recommended when clinically able for further evaluation. Dr. Mccord discussed these findings with Dr. Szymanski via telephone at 7:50 p.m. on 02/02/2025. Reading Location: PSYCHIATRIC Assessment & Plan Assessment/Plan (1) Small bowel obstruction: (2) Abdominal pain: QUALIFIERS: Abdominal location: generalized Qualified Code(s): R10.84 - Generalized abdominal pain (3) Nausea & vomiting: QUALIFIERS: Vomiting type: unspecified Qualified Code(s): R11.2 - Nausea with vomiting, unspecified (4) Malaise and fatigue: (5) Generalized weakness: (6) Aspiration pneumonia: QUALIFIERS: Aspiration pneumonia type: due to vomit Laterality: right Lung location: lower lobe of lung Qualified Code(s): J69.0 - Pneumonitis due to inhalation of food and vomit (7) Hernia: (8) Hx of endovascular stent graft for abdominal aortic aneurysm: (9) Breast nodule: PLAN: Plan 1. SBO on CT - Admit to general medical floor. Keep strict NPO, place NGT to IWS and follow strict I's & O's. Volume resuscitate with NS IVF @ 125 cc/hr x 2L and then reassess. Check serum lactate to evaluate for evidence of underlying ischemia. Start pantoprazole 40 mg IV daily. Give ketorolac IV prn for [id number] (level 1-5/10) pain or fever. Give morphine IV prn for severe (level 6-10/10) pain. Recheck KUB in AM to reassess SBO. Finally, general surgeon will see this patient at his discretion with help appreciated in advance. 2. Abdominal Pain with Nausea and Vomiting with Malaise, Fatigue and Generalized Weakness due to #1 - Give ondansetron IV prn nausea and vomiting. Give promethazine IM prn breakthrough nausea. We will follow pain regimen and scale outlined above in #1. Finally, we will consult PT/OT and Case Management to see this patient on rounds in the AM for further recommendations with help appreciated in advance. 3. Aspiration Pneumonia in RLL noted on CT attributable to #1 & #2 - Start empiric IV piperacillin-tazobactam and monitor for improvement. 4. History of hernia; s/p mesh repair x 2 () adding to the medical complexity of #1 - #3 - Noted. 5. History of AAA; s/p bi-iliac aortic stent graft - Noted. 6. Incidentally noted stable Left breast soft tissue nodule and increased size of Right breast nodule since 2021 with diagnostic mammogram recommended - Patient will need to be set up for outpatient mammogram at time of discharge. 7. Essential Hypertension; on amlodipine - Hold amlodipine while NPO and give hydralazine IV prn for systolic blood pressure > 160 mmHg. 8. Hyperlipidemia; with intolerance to rosuvastatin - Check Lipid Profile to confirm status. 9. Hypothyroidism; on levothyroxine - Hold oral levothyroxine while NPO. If patient requires surgery she should transition to IV levothyroxine at 50% of typical oral dose. Check TSH. 10. History of uterine cancer; s/p radiation and hysterectomy (2009) - Noted. 11. History of skin cancer - Noted. 12. History of COVID-19 - Noted. 13. History of bilateral LE venous stasis dermatitis - Stable. 14. OA - Stable. We will give ketorolac IV prn as per pain scale outlined in #1. 15. DVT/GI prophylaxis - Lovenox 40 mg sq daily plus SCD's. Pantoprazole 40 mg IV daily ordered for #1. Total time: Approximately (but not less than) 75 minutes. Charges/Coding Visit Charges Inpatient E&M: 52200 Init Hosp L3
[2025-02-02 20:44] VITALS: BP 136/67; PULSE 72; RESP 15; TEMP 37.1; O2SAT 94
[2025-02-02 21:00] VITALS: BP 131/65; PULSE 72; RESP 18; O2SAT 95
[2025-02-02 21:53] VITALS: BMI 34.7
[2025-02-02 21:58] VITALS: BMI 34.9
[2025-02-02 22:10] VITALS: BP 96/66; PULSE 73; RESP 16; TEMP 36.5; O2SAT 97
[2025-02-02] MEDS: 0.9% Normal Saline (1000mL) 1,000 ML 125 ML IV (22:27)
[2025-02-02] MEDS: Pantoprazole Sodium 40 MG in 0.9% Normal Saline (100mL MB+) 100 ML 330 MG IV (22:27)
[2025-02-02] MEDS: Piperacil/Tazobactam 3.375 GM in 0.9% Normal Saline (50mL MB+) 50 ML IV (23:15)
[2025-02-02] MEDS: Oxymetazoline 0.05% 1 SPRAY SPRAY.BTL 2 SPRAY NASAL (23:34)
[2025-02-02] MEDS: Ketorolac 15 MG/ML Vial IV (23:59)
[2025-02-02] MEDS: 0.9% Saline Lock 10 ML Syringe IV (23:59)
[2025-02-03] VITALS (8 sets, daily range): BP systolic 92–119; BP diastolic 64–72; PULSE 65–98; RESP 16–19; TEMP 36.6–37.1; O2SAT 84–97; BMI 34.9; BMI 35.7
[2025-02-03] MEDS: proMETHazine 25 MG/ML Syringe 12.5 MG IM (00:24)
--- NOTE | 2025-02-03 04:20 | RAD_ITS ---
PROCEDURE: ABDOMEN SINGLE VIEW (PORTABLE) 02/03/2025 REASON FOR EXAM: SBO. TECHNIQUE: Single view abdomen. COMPARISON: 02/03/2025 FINDINGS: Nasogastric tube again seen at the stomach tip at the fundus. Dilated small bowel loops left abdomen with paucity of small-bowel gas right abdomen consistent with history of small-bowel obstruction. Excreted contrast material within the renal collecting systems and bladder. Aortoiliac endovascular stent graft again seen. RAD/Abdomen Single View (Portable) IMPRESSION: Nasogastric tube again seen at the stomach tip at the fundus. Dilated small bow el loops left abdomen with paucity of small-bowel gas right abdomen consistent with history of small-bowel obstruction. Reading Location: [id number]
[2025-02-03] MEDS: Piperacil/Tazobactam 3.375 GM in 0.9% Normal Saline (50mL MB+) 50 ML IV ×3 (05:14→21:21)
[2025-02-03] MEDS: 0.9% Normal Saline (1000mL) 1,000 ML 125 ML IV (06:40)
[2025-02-03 07:18] LABS: Absolute Lymphocyte Count 0.85 X10^3/uL (0.83-4.51); Absolute Neutrophil Count 4.5 X10^3/uL (2.0-7.7); Basophil# 0.03 X10^3/uL; Basophil% 0.5 % (0-1); Eosinophil# 0.05 X10^3/uL; Eosinophils% 0.8 % (0-5); Hematocrit 39.8 % (37-47); Hemoglobin 12.6 g/dL (12.0-15.0); Lymphocyte # 0.85 X10^3/ul (0.83-4.51); Lymphocyte % 13.9 % (19-41); Mean Corp Hgb Conc 31.7 g/dL (32-36); Mean Corpuscular Hgb 29.6 pg (27.0-32.0); Mean Corpuscular Volume 93.4 fL (81-99); Mean Platelet Vol. 9.1 fl (6.2-12.0); Monocyte# 0.72 X10^3/uL; Monocyte% 11.7 % (0-10); NRBC Flagged by Analyzer 0 % (0-5); Neutrophil # 4.47 X10^3/uL (2.7-7.7); Neutrophil % 72.9 % (47-70); Platelet Count 179 K/mm3 (150-450); RBC Distribution Width CV 16.5 % (11.6-14.6); RBC Distribution Width SD 55.8 fl (35.1-43.9); Red Blood Count 4.26 M/mm3 (4.2-5.4); White Blood Count 6.1 K/mm3 (4.4-11.0)
[2025-02-03 08:15] LABS: ALB/GLOB Ratio 1.3 RATIO (0.9-2.4); AST(SGOT) 16 U/L (<=31); Alanine Aminotransfer ALT/SGPT 6 U/L (<=34); Albumin, Serum 3.5 g/dL (3.4-4.8); Alkaline Phosphatase 87 U/L (35-104); Anion Gap 13 (5-15); BUN 15 mg/dL (4-19); BUN/Creat Ratio 13.5 RATIO (10-20); Calcium,Total 8.6 mg/dL (7.6-11.0); Carbon Dioxide 21.8 mmol/L (21.0-32.0); Chloride 108 mmol/L (98-108); Creatinine, Serum 1.13 mg/dL (0.70-1.20); EST Glomerular Filtration Rate 49 (>60); Estimated Creatinine Clearance 39.08 ml/min (50-250); Globulin 2.7 g/dL (2.2-4.2); Glucose 104 mg/dL (70-99); Phosphorus 4.2 mg/dL (2.7-4.5); Potassium 3.9 mmol/L (3.3-5.1); Protein, Total 6.2 g/dL (5.9-8.4); Sodium Level 142 mmol/L (133-145); Total Bilirubin 0.79 mg/dL (0.00-1.30)
--- NOTE | 2025-02-03 08:30 | PN.HOSP_ITS ---
Subjective Subjective NG tube in place, abdominal pain improved. Gastric output 350 so far Objective Data Objective Data Vital Signs: Vital Signs Temp Pulse Resp BP Pulse Ox O2 Del Method O2 Flow Rate 97.8 F 75 16 119/65 93 Nasal Cannula 2 02/03/25 05:05 02/03/25 05:05 02/03/25 05:05 02/03/25 05:05 02/03/25 07:50 02/03/25 07:50 02/03/25 07:50 Oxygen Flow Rate (L/min) 2 Oxygen Delivery Method Nasal Cannula Weight: 189 lb 13.088 oz Body Mass Index (BMI) 34.9 Intake & Output: Intake and Output for Last 24 Hours 02/02/25 02/03/25 02/04/25 03:59 03:59 03:59 Intake Total 1160 / 1160 1030 / 1030 Output Total 350 / 350 Balance 1160 / 1160 680 / 680 Lab / Micro Data 02/03/25 05:58 02/03/25 05:58 Labs: Laboratory Results - last 24 hr 02/02/25 17:44: WBC Cancelled, Corrected WBC Cancelled, RBC Cancelled, Hgb Cancelled, Hct Cancelled, MCV Cancelled, MCH Cancelled, MCHC Cancelled, RDW Std Deviation Cancelled, RDW Coeff of Toribio Cancelled, Plt Count Cancelled, MPV Cancelled, Immature Gran % (Auto) Cancelled, Neut % (Auto) Cancelled, Lymph % (Auto) Cancelled, [place] % (Auto) Cancelled, Eos % (Auto) Cancelled, Baso % (Auto) Cancelled, Absolute Neuts (auto) Cancelled, Absolute Lymphs (auto) Cancelled, Total Counted Cancelled, Neutrophils % (Manual) Cancelled, Band Neutrophils % Cancelled, Lymphocytes % (Manual) Cancelled, Monocytes % (Manual) Cancelled, Eosinophils % (Manual) Cancelled, Basophils % (Manual) Cancelled, Metamyelocytes % Cancelled, Myelocytes % Cancelled, Promyelocytes % Cancelled, Blast Cells % Cancelled, Plasma Cell % (Manual) Cancelled, Other Cells % Cancelled, Nucleated RBC % Cancelled, Nucleated RBCs/100 WBC Cancelled, Differential Comment Cancelled, Diff Path Review Cancelled, Hypersegmented Neuts Cancelled, Atypical Lymphocytes Cancelled, Reactive Lymphocytes Cancelled, Smudge Cells Cancelled, Toxic Granulation Cancelled, Toxic Vacuolation Cancelled, Dohle Bodies Cancelled, Margaux Rods Cancelled, Platelet Estimate Cancelled, Plt Morphology Comment Cancelled, RBC Morphology Cancelled 02/02/25 17:44: RBC Morphology Cancelled, Polychromasia Cancelled, Hypochromasia Cancelled, Basophilic Stippling Cancelled, Anisocytosis Cancelled, Microcytosis Cancelled, Macrocytosis Cancelled, Spherocytes Cancelled, Sickle Cells Cancelled, Target Cells Cancelled, Tear Drop Cells Cancelled, Ovalocytes Cancelled, Stomatocytes Cancelled, Davis-[place] Bodies Cancelled, Sedrick Cells Cancelled, Bite Cells Cancelled, Crenated Cell Cancelled, Acanthocytes (Spur) Cancelled, Rouleaux Cancelled, Schistocytes Cancelled, Sodium 139, Potassium 4.5, Chloride 102, Carbon Dioxide 20.2 L, Anion Gap 17 H, BUN 13, Creatinine 1.09, Est GFR (MDRD) Non-Af 51 L, BUN/Creatinine Ratio 12.1, Glucose 134 H, Calcium 9.8, Magnesium 2.0, Total Bilirubin 0.69, AST 25, ALT 8, Alkaline Phosphatase 110 H, Total Protein 7.5, Albumin 3.9, Globulin 3.6, Albumin/Globulin Ratio 1.1, Lipase 24, TSH 3.310 02/02/25 18:07: WBC 9.0, RBC 4.73, Hgb 13.9, Hct 42.7, MCV 90.3, MCH 29.4, MCHC 32.6, RDW Std Deviation 53.0 H, RDW Coeff of Toribio 16.2 H, Plt Count 204, MPV 9.0, Immature Gran % (Auto) 0.300, Neut % (Auto) 84.9 H, Lymph % (Auto) 7.8 L, [place] % (Auto) 6.5, Eos % (Auto) 0.1, Baso % (Auto) 0.4, Absolute Neuts (auto) 7.6, A bsolute Lymphs (auto) 0.70 L, Nucleated RBC % 0 02/02/25 22:11: Lactic Acid 1.0 02/03/25 05:58: WBC 6.1, RBC 4.26, Hgb 12.6, Hct 39.8, MCV 93.4, MCH 29.6, MCHC 31.7 L, RDW Std Deviation 55.8 H, RDW Coeff of Toribio 16.5 H, Plt Count 179, MPV 9.1, Immature Gran % (Auto) 0.200, Neut % (Auto) 72.9 H, Lymph % (Auto) 13.9 L, [place]ett % (Auto) 11.7 H, Eos % (Auto) 0.8, Baso % (Auto) 0.5, Absolute Neuts (auto) 4.5, Absolute Lymphs (auto) 0.85, Nucleated RBC % 0, Sodium 142, Potassium 3.9, Chloride 108, Carbon Dioxide 21.8, Anion Gap 13, BUN 15, Creatinine 1.13, Estim Creat Clear Calc 39.08 L, Est GFR (MDRD) Non-Af 49 L, BUN/Creatinine Ratio 13.5, Glucose 104 H, Calcium 8.6, Phosphorus 4.2, Total Bilirubin 0.79, AST 16, ALT 6, Alkaline Phosphatase 87, Total Protein 6.2, Albumin 3.5, Globulin 2.7, Albumin/Globulin Ratio 1.3 Radiography Diagnostic Testing: Radiology Impression KUB X-Ray 02/02/25 00:35 IMPRESSION: Gastric tube placement as described. Reading Location: [facility] Abdomen/Pelvis CT 02/02/25 18:11 IMPRESSION: 1. Small-bowel obstruction with transition point within the right lower quadrant as described. 2. Severe distal colonic diverticulosis. 3. Partially visualized focal area of tree-in-bud opacities within the right lower lobe, compatible with infectious/inflammatory etiology such as aspiration pneumonitis. 4. Stable left breast soft tissue nodule and increased size of a right breast soft tissue nodule since 2021. Diagnostic mammogram is recommended when clinically able for further evaluation. Dr. Mccord discussed these findings with Dr. Szymanski via telephone at 7:50 p.m. on 02/02/2025. Reading Location: [facility] KUB X-Ray 02/03/25 04:20 IMPRESSION: Nasogastric tube again seen at the stomach tip at the fundus. Dilated small bowel loops left abdomen with paucity of small-bowel gas right abdomen consistent with history of small-bowel obstruction. Reading Location: [facility] Physical Exam Narrative General: Alert, Oriented x3, Cooperative, No apparent distress HEENT: Atraumatic, PERRLA, EOMI, Normocephalic Oral: Moist Mucosa Neck: Supple, No JVD Lungs: Diminished, Normal air movement, No rhonchi, No wheeze, No rales Cardiovascular: Regular rate, Regular Rhythm, Normal S1, Normal S2, No murmurs Abdomen: Soft, Non Tender, Non-Distended, No Hepato-splenomegaly, NG tube in place Extremities: Edema, Capillary Refill Less than 3 Seconds Skin: No rashes, No breakdown Musculoskeletal: No Tenderness to Palpation of Joints or Extremities Neurological: No focal neurological deficits, Motor Exam 5/5 strength throughout, Sensory exam intact to light touch and pain Psych/Mental Status: Normal Affect, Appropriate Assessment & Plan Assessment/Plan (1) Small bowel obstruction: (2) Aspiration pneumonia: QUALIFIERS: Aspiration pneumonia type: due to vomit Laterality: r ight Lung location: lower lobe of lung Qualified Code(s): J69.0 - Pneumonitis due to inhalation of food and vomit PLAN: Plan 1. Recurrent SBO with transition point in the right lower quadrant/aspiration pneumonia ? Continue with antibiotics ? Continue with nasogastric tube ? Appreciate surgery's assistance ? Continue with n.p.o. ? IV fluids ? Last time she had a small bowel obstruction it resolved on its own 2. Essential HTN/HLD ? She does have hydralazine IV as needed, will hold Norvasc ? Will monitor make adjustments as necessary ? She is allergic to statins 3. Breast nodule ? This has changed slightly so she has a mammogram as an outpatient on the right breast of the left breast nodule stable 4. Hypothyroidism ? Hold Synthroid while n.p.o. ? Stable DVT: Lovenox Charges/Coding Visit Charges Inpatient E&M: 00759 Subs Hosp L2
--- NOTE | 2025-02-03 08:40 | CON.PCM.SX_ITS ---
Assessment & Plan Assessment/Plan (1) Small bowel obstruction: PLAN: Patient has a small bowel obstruction on CT scan with transition in the right lower quadrant. This is very similar to her last CT in 2022 where she had another bowel obstruction. That bowel obstruction resolved spontaneously. I will give this a day or 2 to see if it resolves on its own. Continue NG suction. KUB in the morning. Vu Sousa MD Pager: [facility] [address] [place] [address], [address] [place] [address] Office: HPI Consult Data Date of Consult: 02/03/25 HPI Narrative HPI Narrative: ELA JOHNSON, is a 84 F who presents with nausea and vomiting. Reviewing her chart the patient had a CT in 2022 and I review those records. The patient had a similar small bowel obstruction with a transition point the right lower quadrant back then that resolved spontaneously. She has an NG tube in place. She is currently not passing any flatus and reports no abdominal pain. She does not report any nausea or vomiting. The NG drainage is brownish-green [facility] Medical History Cancer AAA (abdominal aortic aneurysm) Community acquired pneumonia Malaise and fatigue Pulmonary infiltrate Cough Eye abnormalities History of hypertension Obesity History of abdominal aortic aneurysm (AAA) Hyperlipidemia Venous insufficiency of both lower extremities Intertriginous dermatitis associated with moisture Urinary incontinence, mixed Bilateral lower extremity edema History of skin cancer History of COVID-19 History of uterine cancer Hypertension Home Medications ?Medication ?Instructions ?Recorded ?Last Taken ?Type amlodipine 5 mg tablet 5 mg PO DAILY BP #90 TABLETS 04/11/24 02/01/25 Rx albuterol sulfate 90 mcg/actuation 2 puff inhalation Q 4H PRN 02/02/25 Unknown History aerosol inhaler shortness of breath or wheez ing levothyroxine 25 mcg tablet 25 mcg PO DAILY 02/02/25 U nknown History Held on 02/02/25. Instructions: SIDE EFFECTS nystatin 100,000 unit/gram topical 1 applic topical TI D PRN skin 02/02/25 Unknown History powder (Nystop) irritation triamcinolone acetonide 0.1 % 1 applic topical TID PRN skin 02/02/25 Unknown History topical ointment irritation Allergy/AdvReac Type Severity Reaction Status Date / Time rosuvastatin (From Crestor) Allergy Severe stomach Verified 02/02/25 17:25 pains shellfish derived Allergy Severe MOUTH SORES Verified 02/02/25 17:25 sulfamethoxazole (From Allergy Unknown unknown Verified 02/02/25 17:25 Bactrim) trimethoprim (From Bactrim) Allergy Unknown unknown Verified 02/02/25 17:25 Family History Son Alcoholism Grandmother No problems noted. Mother Heart disease Hypertension CVA (cerebral vascular accident) Father Cancer throat Surgical History History of recent surgery History of hernia repair Hx of endovascular stent graft for abdominal aortic aneurysm History of hysterectomy Social History household members: none Smoking Status: Never smoker alcohol intake: never substance use type: does not use what type of physical activity do you participate in: walking and aerobics ROS Constitutional Constitutional: Denies anorexia, chills, fatigue or fever(s) Eyes Eyes: Denies blurry vision ENT HEENT: Denies abnormal hearing Respiratory/Chest Respiratory/Chest: Denies cough or dyspnea Gastrointestinal Gastrointestinal: Reports abdominal pain, nausea and vomiting Genitourinary Genitourinary: Denies change in urinary stream Musculoskeletal Musculoskeletal: Denies abnormal gait Integumentary Integumentary: Denies jaundice Physical Exam Const alert and oriented x3 Eyes PERRL Resp normal respiratory effort Cardio Rate: regular rate Rhythm: regular rhythm GI soft to palpation and non-tender Inspection: abdominal distention Lab / Micro Data 02/03/25 05:58 02/03/25 05:58 Labs: Laboratory Results - last 24 hr 02/02/25 17:44: WBC Cancelled, Corrected WBC Cancelled, RBC Cancelled, Hgb Cancelled, Hct Cancelled, MCV Cancelled, MCH Cancelled, MCHC Cancelled, RDW Std Deviation Cancelled, RDW Coeff of Toribio Cancelled, Plt Count Cancelled, MPV Cancelled, Immature Gran % (Auto) Cancelled, Neut % (Auto) Cancelled, Lymph % (Auto) Cancelled, Hawkins % (Auto) Cancelled, Eos % (Auto) Cancelled, Baso % (Auto) Cancelled, Absolute Neuts (auto) Cancelled, Absolute Lymphs (auto) Cancelled, Total Counted Cancelled, Neutrophils % (Manual) Cancelled, Band Neutrophils % Cancelled, Lymphocytes % (Manual) Cancelled, Monocytes % (Manual) Cancelled, Eosinophils % (Manual) Cancelled, Basophils % (Manual) Cancelled, Metamyelocytes % Cancelled, Myelocytes % Cancelled, Promyelocytes % Cancelled, Blast Cells % Cancelled, Plasma Cell % (Manual) Cancelled, Other Cells % Cancelled, Nucleated RBC % Cancelled, Nucleated RBCs/100 WBC Cancelled, Differential Comment Cancelled, Diff Path Review Cancelled, Hypersegmented Neuts Cancelled, Atypical Lymphocytes Cancelled, Reactive Lymphocytes Cancelled, Smudge Cells Cancelled, Toxic Granulation Cancelled, Toxic Vacuolation Cancelled, Dohle Bodies Cancelled, Margaux Rods Cancelled, Platelet Estimate Cancelled, Plt Morphology Comment Cancelled, RBC Morphology Cancelled 02/02/25 17:44: RBC Morphology Cancelled, Polychromasia Cancelled, Hypochromasia Cancelled, Basophilic Stippling Cancelled, Anisocytosis Cancelled, Microcytosis Cancelled, Macrocytosis Cancelled, Spherocytes Cancelled, Sickle Cells Cancelled, Target Cells Cancelled, Tear Drop Cells Cancelled, Ovalocytes Cancelled, Stomatocytes Cancelled, Davis-[place] Bodies Cancelled, Eudora Cells Cancelled, Bite Cells Cancelled, Crenated Cell Cancelled, Acanthocytes (Spur) Cancelled, Rouleaux Cancelled, Schistocytes Cancelled, Sodium 139, Potassium 4.5, [place] 102, Carbon Dioxide 20.2 L, Anion Gap 17 H, BUN 13, Creatinine 1.09, Est GFR (MDRD) Non-Af 51 L, BUN/Creatinine Ratio 12.1, Glucose 134 H, Calcium 9.8, Magnesium 2.0, Total Bilirubin 0.69, AST 25, ALT 8, Alkaline Phosphatase 110 H, Total Protein 7.5, Albumin 3.9, Globulin 3.6, Albumin/Globulin Ratio 1.1, Lipase 24, TSH 3.310 02/02/25 18:07: WBC 9.0, RBC 4.73, Hgb 13.9, Hct 42.7, MCV 90.3, MCH 29.4, MCHC 32.6, RDW Std Deviation 53.0 H, RDW Coeff of Toribio 16.2 H, Plt Count 204, MPV 9.0, Immature Gran % (Auto) 0.300, Neut % (Auto) 84.9 H, Lymph % (Auto) 7.8 L, Hawkins % (Auto) 6.5, Eos % (Auto) 0.1, Baso % (Auto) 0.4, Absolute Neuts (auto) 7.6, A bsolute Lymphs (auto) 0.70 L, Nucleated RBC % 0 02/02/25 22:11: Lactic Acid 1.0 02/03/25 05:58: WBC 6.1, RBC 4.26, Hgb 12.6, Hct 39.8, MCV 93.4, MCH 29.6, MCHC 31.7 L, RDW Std Deviation 55.8 H, RDW Coeff of Toribio 16.5 H, Plt Count 179, MPV 9.1, Immature Gran % (Auto) 0.200, Neut % (Auto) 72.9 H, Lymph % (Auto) 13.9 L, Hawkins % (Auto) 11.7 H, Eos % (Auto) 0.8, Baso % (Auto) 0.5, Absolute Neuts (auto) 4.5, Absolute Lymphs (auto) 0.85, Nucleated RBC % 0, Sodium 142, Potassium 3.9, [place] 108, Carbon Dioxide 21.8, Anion Gap 13, BUN 15, Creatinine 1.13, Estim Creat Clear Calc 39.08 L, Est GFR (MDRD) Non-Af 49 L, BUN/Creatinine Ratio 13.5, Glucose 104 H, Calcium 8.6, Phosphorus 4.2, Total Bilirubin 0.79, AST 16, ALT 6, Alkaline Phosphatase 87, Total Protein 6.2, Albumin 3.5, Globulin 2.7, Albumin/Globulin Ratio 1.3 Imaging Radiology Impression KUB X-Ray 02/02/25 00:35 IMPRESSION: Gastric tube placement as described. Reading Location: [facility] Abdomen/Pelvis CT 02/02/25 18:11 IMPRESSION: 1. Small-bowel obstruction with transition point within the right lower quadrant as described. 2. Severe distal colonic diverticulosis. 3. Partially visualized focal area of tree-in-bud opacities within the right lower lobe, compatible with infectious/inflammatory etiology such as aspiration pneumonitis. 4. Stable left breast soft tissue nodule and increased size of a right breast soft tissue nodule since 2021. Diagnostic mammogram is recommended when clinically able for further evaluation. Dr. Mccord discussed these findings with Dr. Szymanski via telephone at 7:50 p.m. on 02/02/2025. Reading Location: [facility] KUB X-Ray 02/03/25 04:20 IMPRESSION: Nasogastric tube again seen at the stomach tip at the fundus. Dilated small bowel loops left abdomen with paucity of small-bowel gas right abdomen consistent with history of small-bowel obstruction. Reading Location: [id number]
--- NOTE | 2025-02-03 09:30 | CASEMGMT ---
RN CM Face to Face with patient for initial transition planning/care coordination assessment. RN CM introduced self and role at [facility]. Patient lying in bed, alert and oriented. Patient willing to participate in assessment and is able to answer all questions appropriately. Care providers, pharmacy, and demographics verified. Strata: 2 PCP: Yaya Specialists: none Preferred Pharmacy: [facility] Insurance: KRYSTINA, KATY Chu Prescription Benefit: yes Living Will/HPOA: yes, daughter Elsa Thomason LNOK: daughter, son Living Arrangements: Patient lives alone in a 1st floor apartment with no steps to enter. Patient is independent at home. Transportation: daughter DME/HHC: Patient has shower chair, cane, walker, grab bars, and home oxygen through [employer] at 2lpm at only. Patient states that she has been receiving calls from [employer] stating that they do not have the proper documentation for her home oxygen and have sent her a bill. Patient states that if she would need increase in oxygen, she would prefer to change to [employer]. CM to follow-up with [facility] regarding documentation needed. Patient is active with [facility]. Patient has been to TCU and [facility] in the past. Patient wishes to discharge home with resumption of [facility]. Resumption order placed and green sheet on chart. Patient states she has no further needs or concerns at this time. CM to follow for discharge planning needs that may arise. Disposition Plan: Patient to discharge home with resumption of HHC, family support, and follow-up plans in place. Estella BRIDGES, RN, CM
[2025-02-03] MEDS: Enoxaparin 40 MG/0.4 ML Syringe SC (10:01)
[2025-02-03] MEDS: Pantoprazole Sodium 40 MG in 0.9% Normal Saline (100mL MB+) 100 ML 330 MG IV (10:04)
--- NOTE | 2025-02-03 15:17 | NURSING ---
Pt awake and this RN walked pt in the zuniga for the second time today. Pt walked around the whole unit twice this morning and four times at this time. Pt felt like she was having a bowel movement but when brought her to the toilet, pt had not had a bm in her attends. PT sat on toilet and was able to void but no BM. Still no flatus either.
[2025-02-03] MEDS: 0.9% Normal Saline (100mL Bag) 100 ML 15 ML IV (21:19)
--- NOTE | 2025-02-04 05:55 | RAD_ITS ---
PROCEDURE: ABDOMEN SINGLE VIEW (PORTABLE) 02/04/2025 REASON FOR EXAM: Abdominal pain. Small-bowel obstruction. TECHNIQUE: Single view abdomen. COMPARISON: Abdominal radiograph 02/03/2025 FINDINGS: Bowel gas: The bowel gas pattern is grossly within normal limits at this time. NG tube is in the stomach. No free air identified. Calcifications: No pathologic calcifications. Bones: No acute bony process. Other: Wire mesh aortic RAD/Abdomen Single View (Portable) IMPRESSION: NG tube positioning. Gas pattern at this time appears grossly within normal Reading Location: [facility]
[2025-02-04] MEDS: Piperacil/Tazobactam 3.375 GM in 0.9% Normal Saline (50mL MB+) 50 ML IV ×3 (07:18→21:09)
[2025-02-04 07:20] LABS: Absolute Lymphocyte Count 0.74 X10^3/uL (0.83-4.51); Absolute Neutrophil Count 2.2 X10^3/uL (2.0-7.7); Basophil# 0.04 X10^3/uL; Eosinophil# 0.32 X10^3/uL; Eosinophils% 8.3 % (0-5); Hematocrit 35.3 % (37-47); Hemoglobin 11.1 g/dL (12.0-15.0); Lymphocyte # 0.74 X10^3/ul (0.83-4.51); Lymphocyte % 19.3 % (19-41); Mean Corp Hgb Conc 31.4 g/dL (32-36); Mean Corpuscular Hgb 30.2 pg (27.0-32.0); Mean Corpuscular Volume 95.9 fL (81-99); Mean Platelet Vol. 9.4 fl (6.2-12.0); Monocyte# 0.54 X10^3/uL; Monocyte% 14.1 % (0-10); NRBC Flagged by Analyzer 0 % (0-5); Neutrophil # 2.19 X10^3/uL (2.7-7.7); Platelet Count 152 K/mm3 (150-450); RBC Distribution Width CV 16.6 % (11.6-14.6); RBC Distribution Width SD 58.8 fl (35.1-43.9); Red Blood Count 3.68 M/mm3 (4.2-5.4); White Blood Count 3.8 K/mm3 (4.4-11.0)
[2025-02-04 07:32] LABS: Anion Gap 10 (5-15); BUN 16 mg/dL (4-19); BUN/Creat Ratio 14.6 RATIO (10-20); Calcium,Total 8.3 mg/dL (7.6-11.0); Carbon Dioxide 22.9 mmol/L (21.0-32.0); Chloride 113 mmol/L (98-108); Creatinine, Serum 1.12 mg/dL (0.70-1.20); EST Glomerular Filtration Rate 49 (>60); Estimated Creatinine Clearance 40.07 ml/min (50-250); Glucose 76 mg/dL (70-99); Phosphorus 3.4 mg/dL (2.7-4.5); Potassium 3.8 mmol/L (3.3-5.1); Sodium Level 145 mmol/L (133-145)
[2025-02-04 08:20] VITALS: O2SAT 96
--- NOTE | 2025-02-04 08:45 | PN.SURG_ITS ---
Subjective Subjective Patient reports she is passing gas and having no abdominal pain. Her NG put out minimal overnight Objective Data Objective Data Vital Signs: Vital Signs Temp Pulse Resp BP Pulse Ox O2 Del Method O2 Flow Rate 98.6 F 65 18 92/72 96 Nasal Cannula 2 02/03/25 20:54 02/03/25 20:54 02/03/25 20:54 02/03/25 20:54 02/04/25 08:20 02/04/25 08:20 02/04/25 08:20 Oxygen Flow Rate (L/min) 2 Oxygen Delivery Method Nasal Cannula Weight: 195 lb 8.8 oz Body Mass Index (BMI) 35.7 Intake & Output: Intake and Output for Last 24 Hours 02/02/25 02/03/25 02/04/25 23:59 23:59 23:59 Intake Total 1110 / 1110 2470 / 2470 150 / 150 Output Total 430 / 430 Balance 1110 / 1110 2040 / 2040 150 / 150 Lab / Micro Data 02/04/25 05:27 02/04/25 05:27 Labs: Laboratory Results - last 24 hr 02/04/25 05:27: WBC 3.8 L, RBC 3.68 L, Hgb 11.1 L, Hct 35.3 L, MCV 95.9, MCH 30.2, MCHC 31.4 L, RDW Std Deviation 58.8 H, RDW Coeff of Toribio 16.6 H, Plt Count 152, MPV 9.4, Immature Gran % (Auto) 0.300, Neut % (Auto) 57.0, Lymph % (Auto) 19.3, [place]enton % (Auto) 14.1 H, Eos % (Auto) 8.3 H, Baso % (Auto) 1.0, Absolute Neuts (auto) 2.2, Absolute Lymphs (auto) 0.74 L, Nucleated RBC % 0, Sodium 145, Potassium 3.8, [place] 113 H, Carbon Dioxide 22.9, Anion Gap 10, BUN 16, Creatinine 1.12, Estim Creat Clear Calc 40.07 L, Est GFR (MDRD) Non-Af 49 L, BUN/Creatinine Ratio 14.6, Glucose 76, Calcium 8.3, Phosphorus 3.4 Physical Exam Const oriented x3 and no apparent distress Resp normal respiratory effort GI normal to inspection, nondistended, normoactive bowel sounds Assessment & Plan Assessment/Plan (1) Small bowel obstruction: PLAN: Patient has small bowel obstruction. This is likely resolving. She states she is passing gas with no nausea or vomiting and she had minimal output from her NG. Her abdomen is soft and nontender. I will remove her NG and start a clear liquid diet to try. Vu Sousa MD Pager: [facility] [address] [place] [address], [address] [place] [address] Office:
[2025-02-04] MEDS: Pantoprazole Sodium 40 MG in 0.9% Normal Saline (100mL MB+) 100 ML 330 MG IV (09:11)
[2025-02-04] MEDS: 0.9% Normal Saline (100mL Bag) 100 ML 15 ML IV (09:11)
[2025-02-04 09:25] VITALS: BP 122/60; PULSE 56; RESP 16; TEMP 36.6; O2SAT 95
--- NOTE | 2025-02-04 09:59 | PN.HOSP_ITS ---
Subjective Subjective Passing flatus and did not have a significant amount of her NG tube overnight awaiting surgery's evaluation Objective Data Objective Data Vital Signs: Vital Signs Temp Pulse Resp BP Pulse Ox O2 Del Method O2 Flow Rate 97.9 F 56 L 16 122/60 H 95 Room Air 2 02/04/25 09:25 02/04/25 09:25 02/04/25 09:25 02/04/25 09:25 02/04/25 09:25 02/04/25 09:02/04/25 08:20 Oxygen Flow Rate (L/min) 2 Oxygen Delivery Method Room Air Weight: 195 lb 8.8 oz Body Mass Index (BMI) 35.7 Intake & Output: Intake and Output for Last 24 Hours 02/03/25 02/04/25 02/05/25 03:59 03:59 03:59 Intake Total 1160 / 1160 2470 / 2470 100 / 100 Output Total 430 / 430 Balance 1160 / 1160 2040 / 2040 100 / 100 Lab / Micro Data 02/04/25 05:27 02/04/25 05:27 Labs: Laboratory Results - last 24 hr 02/04/25 05:27: WBC 3.8 L, RBC 3.68 L, Hgb 11.1 L, Hct 35.3 L, MCV 95.9, MCH 30.2, MCHC 31.4 L, RDW Std Deviation 58.8 H, RDW Coeff of Toribio 16.6 H, Plt Count 152, MPV 9.4, Immature Gran % (Auto) 0.300, Neut % (Auto) 57.0, Lymph % (Auto) 19.3, [place] % (Auto) 14.1 H, Eos % (Auto) 8.3 H, Baso % (Auto) 1.0, Absolute Neuts (auto) 2.2, Absolute Lymphs (auto) 0.74 L, Nucleated RBC % 0, Sodium 145, Potassium 3.8, [place] 113 H, Carbon Dioxide 22.9, Anion Gap 10, BUN 16, Creatinine 1.12, Estim Creat Clear Calc 40.07 L, Est GFR (MDRD) Non-Af 49 L, BUN/Creatinine Ratio 14.6, Glucose 76, Calcium 8.3, Phosphorus 3.4 Physical Exam Narrative General: Alert, Oriented x3, Cooperative, No apparent distress HEENT: Atraumatic, PERRLA, EOMI, Normocephalic Oral: Moist Mucosa Neck: Supple, No JVD Lungs: Diminished, Normal air movement, No rhonchi, No wheeze, No rales Cardiovascular: Regular rate, Regular Rhythm, Normal S1, Normal S2, No murmurs Abdomen: Soft, Non Tender, Non-Distended, No Hepato-splenomegaly, NG tube in place Extremities: Edema, Capillary Refill Less than 3 Seconds Skin: No rashes, No breakdown Musculoskeletal: No Tenderness to Palpation of Joints or Extremities Neurological: No focal neurological deficits, Motor Exam 5/5 strength throughout, Sensory exam intact to light touch and pain Psych/Mental Status: Normal Affect, Appropriate Assessment & Plan Assessment/Plan (1) Small bowel obstruction: (2) Aspiration pneumonia: QUALIFIERS: Aspiration pneumonia type: due to vomit Laterality: r ight Lung location: lower lobe of lung Qualified Code(s): J69.0 - Pneumonitis due to inhalation of food and vomit PLAN: Plan 1. Recurrent SBO with transition point in the right lower quadrant/aspiration pneumonia ? Continue with antibiotics for aspiration pneumonia ? Continue with nasogastric tube, given improvement anticipating that her NG tube will be clamped or removed today ? Appreciate surgery's assistance ? Continue with n.p.o., anticipating advancing her diet by surgery today if the NG tube is pulled or clamped ? IV fluids ? Last time she had a small bowel obstruction it resolved on its own 2. Essential HTN/HLD ? She does have hydralazine IV as needed, will hold Norvasc ? Will monitor make adjustments as necessary ? She is allergic to statins 3. Breast nodule ? This has changed slightly so she has a mammogram as an outpatient on the right breast of the left breast nodule stable 4. Hypothyroidism ? Hold Synthroid while n.p.o. ? Stable DVT: Lovenox Charges/Coding Visit Charges Inpatient E&M: 34859 Subs Hosp L2
--- NOTE | 2025-02-04 10:11 | NURSING ---
downtime documentation 02/04/25 12am until 7am
[2025-02-04] MEDS: 0.9% Saline Lock 10 ML Syringe IV (15:16)
[2025-02-04 15:30] VITALS: BP 114/54; PULSE 58; RESP 16; TEMP 36.5; O2SAT 97
--- NOTE | 2025-02-04 16:02 | NURSING ---
Pt has walked in the zuniga several times today with staff. Has also sat in the chair all day.
[2025-02-04 20:30] VITALS: BP 113/60; PULSE 61; RESP 16; TEMP 36.9; O2SAT 95
[2025-02-05] VITALS (7 sets, daily range): BP systolic 97–118; BP diastolic 49–57; PULSE 58–64; RESP 14–18; TEMP 36.4–36.8; O2SAT 89–97; BMI 35.5
[2025-02-05] MEDS: Piperacil/Tazobactam 3.375 GM in 0.9% Normal Saline (50mL MB+) 50 ML IV ×2 (05:05→13:12)
[2025-02-05 07:08] LABS: Absolute Lymphocyte Count 0.82 X10^3/uL (0.83-4.51); Absolute Neutrophil Count 1.4 X10^3/uL (2.0-7.7); Basophil# 0.02 X10^3/uL; Basophil% 0.7 % (0-1); Eosinophil# 0.29 X10^3/uL; Eosinophils% 9.5 % (0-5); Hemoglobin 10.9 g/dL (12.0-15.0); Lymphocyte # 0.82 X10^3/ul (0.83-4.51); Lymphocyte % 26.9 % (19-41); Mean Corp Hgb Conc 32.1 g/dL (32-36); Mean Corpuscular Hgb 30.2 pg (27.0-32.0); Mean Corpuscular Volume 94.2 fL (81-99); Mean Platelet Vol. 8.9 fl (6.2-12.0); Monocyte# 0.48 X10^3/uL; Monocyte% 15.7 % (0-10); NRBC Flagged by Analyzer 0 % (0-5); Neutrophil # 1.43 X10^3/uL (2.7-7.7); Neutrophil % 46.9 % (47-70); Platelet Count 133 K/mm3 (150-450); RBC Distribution Width CV 15.9 % (11.6-14.6); RBC Distribution Width SD 55.4 fl (35.1-43.9); Red Blood Count 3.61 M/mm3 (4.2-5.4); White Blood Count 3.1 K/mm3 (4.4-11.0)
[2025-02-05 07:43] LABS: Anion Gap 9 (5-15); BUN 13 mg/dL (4-19); BUN/Creat Ratio 12.5 RATIO (10-20); Calcium,Total 8.4 mg/dL (7.6-11.0); Carbon Dioxide 22.3 mmol/L (21.0-32.0); Chloride 109 mmol/L (98-108); Creatinine, Serum 1.02 mg/dL (0.70-1.20); EST Glomerular Filtration Rate 55 (>60); Estimated Creatinine Clearance 43.86 ml/min (50-250); Glucose 87 mg/dL (70-99); Potassium 3.5 mmol/L (3.3-5.1); Sodium Level 140 mmol/L (133-145)
--- NOTE | 2025-02-05 07:46 | PCM.PN.SRG ---
Subjective Subjective Patient reports that she tolerated clear liquid diet with no nausea or vomiting. She has no abdominal pain. She is passing flatus. Objective Data Objective Data Vital Signs: Vital Signs Temp Pulse Resp BP Pulse Ox O2 Del Method O2 Flow Rate 98.2 F 64 16 109/53 L 95 Nasal Cannula 2 02/05/25 02:10 02/05/25 02:10 02/05/25 02:10 02/05/25 02:10 02/05/25 02:10 02/05/25 02:10 02/05/25 02:10 Oxygen Flow Rate (L/min) 2 Oxygen Delivery Method Nasal Cannula Weight: 194 lb 7.163 oz Body Mass Index (BMI) 35.5 Intake & Output: Intake and Output for Last 24 Hours 02/03/25 02/04/25 02/05/25 23:59 23:59 23:59 Intake Total 2470 / 2470 1310 / 1310 50 / 50 Output Total 430 / 430 Balance 2040 / 2040 1310 / 1310 50 / 50 Lab / Micro Data 02/05/25 06:51 02/05/25 06:51 Labs: Laboratory Results - last 24 hr 02/05/25 06:51: WBC 3.1 L, RBC 3.61 L, Hgb 10.9 L, Hct 34.0 L, MCV 94.2, MCH 30.2, MCHC 32.1, RDW Std Deviation 55.4 H, RDW Coeff of Toribio 15.9 H, Plt Count 133 L, MPV 8.9, Immature Gran % (Auto) 0.300, Neut % (Auto) 46.9 L, Lymph % (Auto) 26.9, [place] % (Auto) 15.7 H, Eos % (Auto) 9.5 H, Baso % (Auto) 0.7, Absolute Neuts (auto) 1.4 L, Absolute Lymphs (auto) 0.82 L, Nucleated RBC % 0, Sodium 140, Potassium 3.5, [place] 109 H, Carbon Dioxide 22.3, Anion Gap 9, BUN 13, Creatinine 1.02, Estim Creat Clear Calc 43.86 L, Est GFR (MDRD) Non-Af 55 L, BUN/Creatinine Ratio 12.5, Glucose 87, Calcium 8.4 Radiography Diagnostic Testing: Radiology Impression KUB X-Ray 02/04/25 05:55 IMPRESSION: NG tube positioning. Gas pattern at this time appears grossly within normal Reading [facility] Physical Exam Const oriented x3 and no apparent distress GI soft to palpation and non-tender Assessment & Plan Assessment/Plan (1) Small bowel obstruction: PLAN: Patient seems to have resolved her small bowel obstruction. She tolerated clear liquids with no abdominal pain or nausea or vomiting. I will advance her to a regular diet today to try that. Vu Sousa MD Pager: [facility] [address] [place] [address], [address] [place] [address] Office:
[2025-02-05] MEDS: Pantoprazole Sodium 40 MG in 0.9% Normal Saline (100mL MB+) 100 ML 330 MG IV (10:22)
--- NOTE | 2025-02-05 11:28 | DCINST_ITS ---
Discharge Instructions Diet Discharge Diet: Soft diet (Avoid hard chewy meat for first 2 to 3 days) DC O2, CPAP, BIPAP needs Home O2 Discharge instructions: No Dressing / Incision Discharge Activity: Return to Normal Activity Weight Bearing Status: Weight bearing as tolerated Dressing / Incision Call your doctor if you observe: Fever of 101 or Higher, Coldness, Increased Pain, Numbness or Tingling, Change in Color, Inability to urinate, Inability to have a bowel movement, Shortness of breath, Dizziness, Fainting spells, Swelling in the ankles, Chest pain, Prolonged hiccupping, Increased palpitations (irregular heartbeat) and Calf discomfort Follow Up Care When: IN 2 WEEKS Test Results: Test results from this visit will be discussed in further detail at your follow- up appointment, if applicable. Discharge Plan Admission Admit Date/Time: 02/02/25 20:41 Primary Reason for Your Visit: EARLY SOB AND ASPIRATION PNA Attending Provider: Kendell Jackson Primary Care Provider: Vishal Javier Chi Consulting Providers: Vu Sousa; Faustino Purdy; Grupo Sandoval Discharge Orders/Prescriptions Prescriptions: New amoxicillin-pot clavulanate 875-125 mg tablet 1 tab PO BID 5 Days Qty: 10 0RF Continued albuterol sulfate 90 mcg/actuation HFA aerosol inhaler 2 puff INHALATION Q4H PRN (Reason: shortness of breath or wheezing) levothyroxine 25 mcg tablet 25 mcg PO DAILY nystatin [Nystop] 100,000 unit/gram powder 1 applic topical TID PRN (Reason: skin irritation) triamcinolone acetonide 0.1 % ointment 1 applic topical TID PRN (Reason: skin irritation) amlodipine 5 mg tablet 5 mg PO DAILY Qty: 90 3RF Referrals / Follow Up: Vu Sousa MD [Med Staff - Active Staff] - 02/20/25 2:00 pm Vishal Javier Chi, MD [Primary Care Provider] - 02/07/25 2:40 pm Disposition Disposition (needs filled in before D/C Order can be placed): Home, Self Care
[2025-02-05] MEDS: 0.9% Saline Lock 10 ML Syringe IV (13:12)
--- NOTE | 2025-02-05 15:17 | DS.PCM_ITS ---
Providers Date of Admission: 02/02/25 Date of Discharge: 02/05/25 Primary Care Physician: Dr. Vishal Javier MD Consultations 02/02/25 21:43 Consult: General Surgery Routine Consulting Provider: Vu Sousa Reason for Consult: Early SBO. EMERGENT Consult: No MD Notified: Yes Date Notified: 02/02/25 Time Notified: 20:45 Method of Notification: ED Physician Initiated Reason For Visit: EARLY SBO AND ASPIRATION PNA Diagnosis Discharge Diagnosis (1) Small bowel obstruction: Status: Acute Code(s): K56.609 - Unspecified intestinal obstruction, unspecified as to partial versus complete obstruction Plan 84-year-old female was admitted for sudden onset of left upper quadrant/epigastric abdominal pain, vomiting about 9 AM on the day of admission. Patient also had loose bowel movement but denies fever chills or melena. 1. 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 Surgery was consulted. Conservative management with NG tube suction and abdominal imaging KUB was done. Patient passed flatus. Started on clear liquid and diet advanced to regular diet. Patient is being discharged after discussion with surgeon that she can go home. 2. Aspiration pneumonia: Patient had CT abdomen which showed partial focal area of tree-in-bud opacity in right lower lobe compatible with aspiration pneumonitis. Patient was treated with IV Zosyn and discharged on Augmentin. 3. Essential HTN/HLD ? She does have hydralazine IV as needed, will hold Norvasc ?After oral was allowed, patient put back on her home antihypertensive medication ? She is allergic to statins 3. Breast nodule ? This has changed slightly so she has a mammogram as an outpatient on the right breast of the left breast nodule stable 4. Hypothyroidism ? Hold Synthroid while n.p.o. . Synthroid was resumed DVT: Lovenox Discharge medication reconciliation done. Discharge follow-up instructions completed. Discharge process discussed with the patient and all questions were answered to patient's satisfaction. Follow with PCP in 1 to 2 weeks Total time spent, exact 35 minutes on discharge meds reconciliation, examination, coordination of care with nurses and ancillary staff, review of imaging and blood test and discussion with the patient on follow-up instructions. Medications at Discharge Home Medications amlodipine 5 mg tablet 5 mg PO DAILY BP #90 TABLETS 04/11/24 albuterol sulfate 90 mcg/actuation aerosol inhaler 2 puff inhalation Q4H PRN shortness of breath or wheezing 02/02/25 levothyroxine 25 mcg tablet 25 mcg PO DAILY 02/02/25 nystatin 100,000 unit/gram topical powder (Nystop) 1 applic topical TID PRN skin irritation 02/02/25 triamcinolone acetonide 0.1 % topical ointment 1 applic topical TID PRN skin irritation 02/02/25 amoxicillin 875 mg-potassium clavulanate 125 mg tablet 1 tab PO BID 5 days #10 tabs 02/05/25 Physical Exam Narrative Seen and examined. Denies abdominal pain. Passing flatus but not no BM yet. Tolerated clear liquid diet advanced to regular diet by the surgeon. General: Alert, Oriented x3, Cooperative HEENT: Atraumatic, PERRLA, EOMI, Normocephalic Oral: No Gingival or Mucosal Lesions/ Ulcerations Neck: Supple, No JVD, Negative Carotid Bruits Chest wall/Lungs: Air entry diminished in bilateral lung bases. No crepitation/rhonchi Cardiovascular: Regular rate, Regular Rhythm, Normal S1, Normal S2, no murmur gallop rub Abdomen: Bowel Sounds Present, Soft, Non Tender, Non-Distended : No dysuria. No renal angle tenderness. No suprapubic tenderness. Extremities: No edema, Capillary Refill Less than 3 Seconds Skin: No rashes, No breakdown Musculoskeletal: No Tenderness to Palpation of Joints or Extremities Neurological: Cranial nerves II-XII grossly intact, DTR 2+/4. No acute focal neurological deficit. Psych/Mental Status: Normal Affect, Appropriate. Weight / BMI Weight Weight: 194 lb 7.163 oz Body Mass Index (BMI) 35.5 ABG / Lab / Microbiology Data 02/05/25 06:51 02/05/25 06:51 Laboratory: Laboratory Results - last 24 hr 02/05/25 06:51: WBC 3.1 L, RBC 3.61 L, Hgb 10.9 L, Hct 34.0 L, MCV 94.2, MCH 30.2, MCHC 32.1, RDW Std Deviation 55.4 H, RDW Coeff of Toribio 15.9 H, Plt Count 133 L, MPV 8.9, Immature Gran % (Auto) 0.300, Neut % (Auto) 46.9 L, Lymph % (Auto) 26.9, [place] % (Auto) 15.7 H, Eos % (Auto) 9.5 H, Baso % (Auto) 0.7, A bsolute Neuts (auto) 1.4 L, Absolute Lymphs (auto) 0.82 L, Nucleated RBC % 0, Sodium 140, Potassium 3.5, Chloride 109 H, Carbon Dioxide 22.3, Anion Gap 9, BUN 13, Creatinine 1.02, Estim Creat Clear Calc 43.86 L, Est GFR (MDRD) Non-Af 55 L, BUN/Creatinine Ratio 12.5, Glucose 87, Calcium 8.4 D/C Instructions Discharge Diet: Soft diet (Avoid hard chewy meat for first 2 to 3 days) Weight Bearing Status: Weight bearing as tolerated Call your doctor if you observe: Fever of 101 or Higher, Coldness, Increased Pain, Numbness or Tingling, Change in Color, Inability to urinate, Inability to have a bowel movement, Shortness of breath, Dizziness, Fainting spells, Swelling in the ankles, Chest pain, Prolonged hiccupping, Increased palpitations (irregular heartbeat) and Calf discomfort DC O2, CPAP, BIPAP Needs Home O2 Discharge instructions: No When: IN 2 WEEKS Meaningful Use Info Meaningful Use Meaningful Use Diagnoses (Choose all that apply): None applicable Ischemic Stroke Statin Dosing Therapy Reference: STATIN DOSE THERAPY REFERENCE: * Patients > 75 years receive moderate or high dose statin therapy. * Patients 75 years or YOUNGER should receive HIGH intensity statin dose unless contraindicated. You will be required to document reason for non-treatment if statin daily dose does not meet guidelines. HIGH DOSE STATIN THERAPY DAILY Atorvastatin > than or = to 40 mg Rosuvastatin > than or = to 20 mg Amlodipine + Atorvastatin > than or = to 2.5/40 mg Ezetimibe + Simvastatin 10/80 mg Simvastatin 80mg Discharge Plan Admission Admit Date/Time: 02/02/25 20:41 Primary Reason for Your Visit: EARLY SOB AND ASPIRATION PNA Attending Provider: Kendell Jackson Primary Care Provider: Vishal Javier Chi Consulting Providers: Vu Sousa; Faustino Purdy; [employer] Discharge Orders/Prescriptions Prescriptions: New amoxicillin-pot clavulanate 875-125 mg tablet 1 tab PO BID 5 Days Qty: 10 0RF Continued albuterol sulfate 90 mcg/actuation HFA aerosol inhaler 2 puff INHALATION Q4H PRN (Reason: shortness of breath or wheezing) levothyroxine 25 mcg tablet 25 mcg PO DAILY nystatin [Nystop] 100,000 unit/gram powder 1 applic topical TID PRN (Reason: skin irritation) triamcinolone acetonide 0.1 % ointment 1 applic topical TID PRN (Reason: skin irritation) amlodipine 5 mg tablet 5 mg PO DAILY Qty: 90 3RF Referrals / Follow Up: Vu Sousa MD [Med Staff - Active Staff] - 02/20/25 2:00 pm Vishal Javier Chi, MD [Primary Care Provider] - 02/07/25 2:40 pm Disposition Disposition (needs filled in before D/C Order can be placed): Home, Self Care Charges/Coding Visit Charges Inpatient E&M: 07108 Disch Hosp >30min
--- NOTE | 2025-02-05 15:29 | PHA.DC.MR.R ---
Pharmacy CT Med Reconciliation Pharmacy Service has performed discharge medication reconciliation for this patient. The patient's discharge medication list was reviewed for discrepancies and discrepancies were resolved. Medications at Discharge Home Medications amlodipine 5 mg tablet 5 mg PO DAILY BP #90 TABLETS 04/11/24 albuterol sulfate 90 mcg/actuation aerosol inhaler 2 puff inhalation Q4H PRN shortness of breath or wheezing 02/02/25 levothyroxine 25 mcg tablet 25 mcg PO DAILY 02/02/25 nystatin 100,000 unit/gram topical powder (Nystop) 1 applic topical TID PRN skin irritation 02/02/25 triamcinolone acetonide 0.1 % topical ointment 1 applic topical TID PRN skin irritation 02/02/25
--- NOTE | 2025-02-05 15:55 | CHAPLAIN ---
Type of Pastoral Visit _x__ Initial Visit ___ Follow-up Visit ___ On-call Visit ___ General Patient Visit ___ Spiritual Assessment ___ Family Conference ___ Bereavement ___ Rapid Response ___ Code Blue ___ Other (describe below) Pastoral Care Referral From _x__ Patient ___ Family ___ Nurse ___ Physician ___ Church History Teacher ___ Outside Plant Technician ___ Other (describe below) Sacrament/Intervention _x__ Active listening ___ Anointing ___ Confucianism ___ Bereavement ___ Communion _x__ [place] exploration ___ _x__ Life review _x__ Prayer ___ Reconciliation ___ Sacrament of Sick ___ Supportive presence ___ Wedding ___ Other (describe below) Pastoral Comments patient is expecting to be discharged but is very welcoming and happy to explain her afia and her orthodox connection; pt had moved to the area four years ago to be closer to her daughter; 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
--- NOTE | 2025-02-05 16:12 | CASEMGMT ---
Pt has an order for DC placed. [facility] @ [facility] states that they can resume care on Wednesday. [place] @ [facility] (Human Capital Manager) states that the pt does not owe anything. Per the service order clerk, pt did not qualify for an increased amount of O2. RN CM to pt room at this time. Pt states that she feels safe returning home today with the resumption of HHC being Wednesday. Pt states that her daughter can pick her up around 1700 today. Pt states that she is OK with continuing services through [facility] as long as she does not owe anything. Pt denies further questions or concerns at this time and is ready for DC home once her daughter arrives.
== END 2025-02-05 16:05 | disposition home health service (06) | DRG 388 ==
LOC: ED 20:18 → MS3 22:52
PROVIDERS: Family Medicine; Admitting Provider Internal Medicine; Emergency Provider Emergency Medicine; PCP Family Medicine Geriatric Medicine; Referring Provider Emergency Medicine; Visit Provider Internal Medicine
DX: K56.609 Unspecified intestinal obstruction, unspecified as to partial versus complete obstruction (principal); J69.0 Pneumonitis due to inhalation of food and vomit; I10 Essential (primary) hypertension; E03.9 Hypothyroidism, unspecified; E78.5 Hyperlipidemia, unspecified; G47.33 Obstructive sleep apnea (adult) (pediatric); N63.13 Unspecified lump in the right breast, lower outer quadrant; Z79.890 Hormone replacement therapy; Z79.899 Other long term (current) drug therapy; Z85.42 Personal history of malignant neoplasm of other parts of uterus; Z86.16 Personal history of COVID-19
CPT/HCPCS: 36415; 74018; 74177; 80048; 80053; 83605; 83690; 83735; 84100; 84443; 85025; 94668; 95810; 97162; 97166; 97530; 99285; Q9967; A4216; J2405

== ENCOUNTER → 2025-02-26 | Outpatient (CLI) | payer MEDICARE, BC, MEDICAID, SELFPAY ==
--- NOTE | 2025-02-26 15:49 | CT_ITS ---
PROCEDURE: ABDOMEN/PELVIS WITH CONTRAST 02/26/2025 REASON FOR EXAM: ABDOMINAL PAIN, CONGESTION OF RESP. TRACK TECHNIQUE: Contiguous axial scans of 3.75 mm slice thicknesses. Sagittal and coronal reconstruction images were obtained. One or more dose reduction techniques were used (e.g., automated exposure control, adjustment of mA and/or kv according to patient size, use of iterative reconstruction technique). PATIENT PREPARATION: Per protocol ORAL CONTRAST TYPE: Given. CONTRAST: Isovue-300 VOLUME: 88 mL RADIATION DOSE SUMMARY: CTDlvol: 30.26 mGy DLP: 881.67 mGycm COMPARISON: 02/02/2025 FINDINGS: Lung bases: Subsegmental atelectasis and/or parenchymal scarring in the lung bases. Liver: Mild biliary ectasia. Normal-size. Normal attenuation. Gallbladder: Multiple gallstones. No pericholecystic edema. Spleen: Normal-size. Calcified spleen granulomas. Pancreas: Normal. Adrenals: Unremarkable. Kidneys: Left upper pole cyst measuring 1.9 x 1.3 cm. No solid masses. No signs of obstruction. Both kidneys excrete contrast material symmetrically. Bladder: Unremarkable. Reproductive Organs: Uterus is surgically absent. Bowel: Diverticulosis, descending and sigmoid colon. No signs of diverticulitis. Multiple dilated loops of jejunum. Suspected zone of transition in the right lower quadrant. No small bowel wall thickening. Appendix: No evidence of appendicitis. Lymph nodes: No suspicious adenopathy. Vasculature: Aortic and bilateral common iliac stent graft. 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 Peritoneum / Retroperitoneum: No masses. No free air. No free fluid. Anterior abdominal wall: Unremarkable. Bones: Multilevel spondylosis and degenerative disc disease. Soft tissues: Stable soft tissue nodule in the left breast measuring 2.0 x 1.6 cm. Right breast nodule, axillary aspect measuring 0.96 cm, axial image 12. CT/Abdomen/Pelvis WITH Contrast IMPRESSION: Dilated loops of small bowel with zone of transition again suspected in the rig ht lower quadrant. Mild biliary ductal ectasia. Cholelithiasis. Left renal cysts. Diverticulosis without signs of diverticulitis. Bilateral breast nodules redemonstrated. Consider mammography if indicated. Other nonacute findings detailed above. Reading Location: [facility]
--- NOTE | 2025-02-26 16:05 | RAD_ITS ---
PROCEDURE: CHEST PA AND LATERAL 02/26/2025 REASON FOR EXAM: CONGESTION OF RESP. TRACT TECHNIQUE: Frontal and lateral views of the chest. COMPARISON: 12/12/2024 PA and lateral chest. FINDINGS: Lungs: Areas of subsegmental atelectasis and/or early infiltrate in the lower lobes. Pleura: No pleural effusions, thickening, or pneumothorax. Heart: Normal in size and configuration. Mediastinum/Neris: Unremarkable. Great vessels: Atherosclerotic and tortuous aorta. Aortic abdominal stent graft. Bones/soft tissues: Unremarkable. RAD/Chest PA and Lateral IMPRESSION: Subsegmental atelectasis and/or early infiltrate in the lower lobes. Reading Location: [facility]
[2025-02-26 16:29] LABS: Mucous, Urine 0 SEEN /hpf (<or=2+)
[2025-02-26 17:10] LABS: Absolute Lymphocyte Count 1.49 X10^3/uL (0.83-4.51); Absolute Neutrophil Count 3.4 X10^3/uL (2.0-7.7); Basophil# 0.05 X10^3/uL; Basophil% 0.8 % (0-1); Eosinophil# 0.39 X10^3/uL; Eosinophils% 6.3 % (0-5); Hematocrit 45.8 % (37-47); Hemoglobin 14.7 g/dL (12.0-15.0); Lymphocyte # 1.49 X10^3/ul (0.83-4.51); Lymphocyte % 23.9 % (19-41); Mean Corp Hgb Conc 32.1 g/dL (32-36); Mean Corpuscular Hgb 29.5 pg (27.0-32.0); Mean Platelet Vol. 8.7 fl (6.2-12.0); Monocyte# 0.91 X10^3/uL; Monocyte% 14.6 % (0-10); NRBC Flagged by Analyzer 0.3 % (0-5); Neutrophil # 3.35 X10^3/uL (2.7-7.7); Neutrophil % 53.8 % (47-70); Platelet Count 231 K/mm3 (150-450); RBC Distribution Width CV 16.2 % (11.6-14.6); RBC Distribution Width SD 54.8 fl (35.1-43.9); Red Blood Count 4.98 M/mm3 (4.2-5.4); White Blood Count 6.2 K/mm3 (4.4-11.0)
[2025-02-26 17:11] LABS: Color, Urine Yellow (Yellow); Glucose, Dipstick Normal (Normal); Ketone-Dipstick 5 mg/dl (Negative); Leukocyte Esterase-Dipstick 100 /ul (Negative); Nitrite-Dipstick Negative (Negative); Occult Blood-Urine 150 /ul (Negative); Protein-Dipstick 30 mg/dl (Negative); Urine Clarity Cloudy (Clear); Urine Urobilinogen 1 mg/dl (Normal)
[2025-02-26 17:12] LABS: Urine Bilirubin Dipstick 1 mg/dL (Negative)
[2025-02-26 18:06] LABS: ALB/GLOB Ratio 1.1 RATIO (0.9-2.4); AST(SGOT) 18 U/L (<=31); Alanine Aminotransfer ALT/SGPT 10 U/L (<=34); Albumin, Serum 4.1 g/dL (3.4-4.8); Alkaline Phosphatase 171 U/L (35-104); Amylase 27 U/L (28-100); Anion Gap 14 (5-15); BUN 18 mg/dL (4-19); BUN/Creat Ratio 16.1 RATIO (10-20); Calcium,Total 9.9 mg/dL (7.6-11.0); Carbon Dioxide 24.6 mmol/L (21.0-32.0); Chloride 103 mmol/L (98-108); Creatinine, Serum 1.09 mg/dL (0.70-1.20); EST Glomerular Filtration Rate 51 (>60); Globulin 3.6 g/dL (2.2-4.2); Glucose 112 mg/dL (70-99); Lipase 29 U/L (13-75); Potassium 3.6 mmol/L (3.3-5.1); Protein, Total 7.8 g/dL (5.9-8.4); Sodium Level 141 mmol/L (133-145); Total Bilirubin 0.43 mg/dL (0.00-1.30)
[2025-02-26 19:56] LABS: White Blood Cells 25-50 SEEN /hpf (0-5)
[2025-02-26 19:58] LABS: Squamous Epithelial Cells - UA 25-50 SEEN /hpf (5-10)
[2025-02-26 19:59] LABS: Bacteria 2+ /hpf (None Seen); Calcium Oxalate Crystals Ur RARE /hpf (<or=2+); Red Blood Cells-Urine 5-10 SEEN /hpf (0-5)
== END | disposition home or self-care (01) ==
PROVIDERS: PCP Family Medicine Geriatric Medicine; Referring Provider Family Medicine Geriatric Medicine; Visit Provider Family Medicine Geriatric Medicine
DX: R10.9 Unspecified abdominal pain (principal); J02.9 Acute pharyngitis, unspecified; J98.8 Other specified respiratory disorders; K85.90 Acute pancreatitis without necrosis or infection, unspecified
CPT/HCPCS: 36415; 71046; 74177; 80053; 81001; 82150; 83690; 85025; 87077; 87086; 87088; 87186; 87631

== ENCOUNTER → 2025-04-19 | Outpatient (CLI) | payer MEDICARE, BC, MEDICAID, SELFPAY ==
[2025-04-19 17:38] LABS: Absolute Lymphocyte Count 1.53 X10^3/uL (0.83-4.51); Absolute Neutrophil Count 2.5 X10^3/uL (2.0-7.7); Basophil# 0.07 X10^3/uL; Basophil% 1.3 % (0-1); Eosinophil# 0.36 X10^3/uL; Eosinophils% 6.8 % (0-5); Hematocrit 41.4 % (37-47); Hemoglobin 13.2 g/dL (12.0-15.0); Lymphocyte # 1.53 X10^3/ul (0.83-4.51); Lymphocyte % 28.9 % (19-41); Mean Corp Hgb Conc 31.9 g/dL (32-36); Mean Corpuscular Hgb 28.2 pg (27.0-32.0); Mean Corpuscular Volume 88.5 fL (81-99); Mean Platelet Vol. 9.7 fl (6.2-12.0); Monocyte# 0.81 X10^3/uL; Monocyte% 15.3 % (0-10); NRBC Flagged by Analyzer 0 % (0-5); Neutrophil # 2.52 X10^3/uL (2.7-7.7); Neutrophil % 47.5 % (47-70); Platelet Count 276 K/mm3 (150-450); RBC Distribution Width CV 15.5 % (11.6-14.6); RBC Distribution Width SD 50.5 fl (35.1-43.9); Red Blood Count 4.68 M/mm3 (4.2-5.4); White Blood Count 5.3 K/mm3 (4.4-11.0)
[2025-04-19 18:18] LABS: ALB/GLOB Ratio 1.1 RATIO (0.9-2.4); AST(SGOT) 31 U/L (<=31); Alanine Aminotransfer ALT/SGPT 20 U/L (<=34); Albumin, Serum 4.1 g/dL (3.4-4.8); Alkaline Phosphatase 398 U/L (35-104); Anion Gap 13 (5-15); BUN 23 mg/dL (4-19); BUN/Creat Ratio 21.6 RATIO (10-20); Calcium,Total 9.7 mg/dL (7.6-11.0); Chloride 105 mmol/L (98-108); Cholesterol 243 mg/dL (<=200); Creatinine, Serum 1.07 mg/dL (0.70-1.20); EST Glomerular Filtration Rate 52 (>60); Globulin 3.6 g/dL (2.2-4.2); Glucose 99 mg/dL (70-99); High Density Lipoprotein 69 mg/dL; Low Density Lipoprotein Calc. 147 mg/dL; Potassium 4.4 mmol/L (3.3-5.1); Protein, Total 7.7 g/dL (5.9-8.4); Sodium Level 139 mmol/L (133-145); Total Bilirubin 0.46 mg/dL (0.00-1.30); Triglycerides 133 mg/dL; Very Low Density Lipoprotein 27 mg/dL (5-40); Vitamin D,25 Hydroxy 23.3 ng/mL (30-100); cholesterol:hdl ratio screen 3.52
== END | disposition home or self-care (01) ==
LOC: LAB 15:28
PROVIDERS: PCP Family Medicine Geriatric Medicine; Referring Provider Family Medicine Geriatric Medicine; Visit Provider Family Medicine Geriatric Medicine
DX: I10 Essential (primary) hypertension (principal); E55.9 Vitamin D deficiency, unspecified; E78.5 Hyperlipidemia, unspecified
CPT/HCPCS: 36415; 80053; 80061; 82306; 84443; 85025

== ENCOUNTER → 2025-04-24 | Outpatient (CLI) | payer MEDICARE, BC, MEDICAID, SELFPAY ==
--- NOTE | 2025-04-24 07:56 | US_ITS ---
PROCEDURE: ABDOMEN LIMITED 04/24/2025 REASON FOR EXAM: ABNORMAL LEVELS OF OTHER SERUM ENZYMES COMPARISON: Prior CT scan of the abdomen and pelvis dated February 26, 2025. FINDINGS: Liver: Coarsened hepatic echotexture with a nodular liver contour suggestive of cirrhosis. The liver measures 14.8 cm. Gallbladder: Multiple echogenic gallstones are identified. I also suspect adenomyomatosis of the gallbladder. Common bile duct: Normal measuring 4.1 mm . Pancreas: Normal Other: Visualized portions of the right kidney are unremarkable except for a 3 mm x 2 mm x 3 mm nonobstructive right intrarenal calculus.. No right upper quadrant ascites. US/Abdomen Limited IMPRESSION: Coarsened echotexture of the liver as described. Multiple gallstones. Findings suggestive of adenomyomatosis of the gallbladder . Reading Location: [place] [id number]
== END | disposition home or self-care (01) ==
LOC: OPUS 07:54
PROVIDERS: PCP Family Medicine Geriatric Medicine; Referring Provider Family Medicine Geriatric Medicine; Visit Provider Family Medicine Geriatric Medicine
DX: R74.8 Abnormal levels of other serum enzymes (principal)
CPT/HCPCS: 76705

== ENCOUNTER → 2025-05-23 | Outpatient (CLI) | payer MEDICARE, BC, MEDICAID, SELFPAY | END | disposition home or self-care (01) | LOC: SL 19:58 | PROVIDERS: PCP Family Medicine Geriatric Medicine; Referring Provider Nurse Practitioner Acute Care; Visit Provider Nurse Practitioner Acute Care | DX: G47.33 Obstructive sleep apnea (adult) (pediatric) (principal) | CPT/HCPCS: 95811 ==

== ENCOUNTER → 2025-07-03 | Outpatient (CLI) | payer MEDICARE, BC, MEDICAID, SELFPAY ==
[2025-07-03 15:37] LABS: AST(SGOT) 29 U/L (<=31); Alanine Aminotransfer ALT/SGPT 17 U/L (<=34); Albumin, Serum 4.0 g/dL (3.4-4.8); Alkaline Phosphatase 268 U/L (35-104); Anion Gap 13 (5-15); BUN 18 mg/dL (4-19); BUN/Creat Ratio 18.5 RATIO (10-20); Calcium,Total 9.3 mg/dL (7.6-11.0); Carbon Dioxide 22.0 mmol/L (21.0-32.0); Chloride 108 mmol/L (98-108); Globulin 3.0 g/dL (2.2-4.2); Glucose 132 mg/dL (70-99); Potassium 4.4 mmol/L (3.3-5.1)
== END | disposition home or self-care (01) ==
LOC: LAB 14:25
PROVIDERS: PCP Family Medicine Geriatric Medicine; Referring Provider Family Medicine Geriatric Medicine; Visit Provider Family Medicine Geriatric Medicine
DX: N18.31 Chronic kidney disease, stage 3a (principal)
CPT/HCPCS: 36415; 80053